=== PATIENT | female | born 1970 | race Caucasian/White ===

== ENCOUNTER 2021-11-09 06:11 | Outpatient (CLI) | payer OTHER, SELFPAY ==
--- OUTSIDE RECORDS SUMMARY | 2021-11-09 06:14 | XMS_ITS | Encounter Summary ---
:1970 Author Organization [facility] Address [address], [place] [address] Care Team Providers Name Role Phone David Choudhury MD Primary Care Provider [phone] Reason for Referral Procedure/Equipment (Routine) - Incomplete Specialty Diagnoses / Procedures Referred By Contact Refer red To Contact Procedures Sha Coulter PA-C XR Chest 1 View [address] [place], [place] [address] Referral ID Status Reason Start Date Expiration Date Visits V isits Requested Authorized [id number] Incomplete 03/20/2021 06/19/2022 1 1 UIT MAKER (Routine) - Incomplete Specialty Diagnoses / Procedures Referred By Contact Refer red To Contact Procedures Tommy Amador MD US Anesthesia Guided Block [address] [place], [place] [address] Referral ID Status Reason Start Date Expiration Date Visits V isits Requested Authorized [id number] Incomplete 03/16/2021 06/15/2022 1 1 UIT MAKER (Routine) - Incomplete Specialty Diagnoses / Procedures Referred By Contact Refer red To Contact Diagnoses Malignant neoplasm of lower lobe of right lung (HRC) Gina Tierney MD Procedures ECG 12 Lead [address], [place] [address] Referral ID Status Reason Start Date Expiration Date Visits V isits Requested Authorized [id number] Incomplete 03/16/2021 06/15/2022 1 1 UIT MAKER Reason for Visit Auth/Cert Specialty Diagnoses / Procedures Referred By Contact Refer red To Contact Diagnoses Malignant neoplasm of lower lobe of right lung (HRC) Procedures THORACOSCOPY/THORACOTOMY/LUNG RESECTION Referral ID Status Reason Start Date Expiration Date Visits Requ ested Visits Authorized [id number] 1 1 Encounter Details Date Type Department Care Team Description 03/16/2021 - Hospital Encounter [facility] Gina Tierney, [place] (Primary Dx); 03/21/2021 Oncology Med Surg Malignant neoplasm of lower lobe of righ t lung (HRC) [address] [employer] [facility] [id number] [phone] Social History Tobacco Use Types Packs/Day Years Used Date Smoking Tobacco: Never Smokeless Tobacco: Never Alcohol Use Standard Drinks/Week Comments Not Currently 0 (1 standard drink = 0.6 oz pure alcoho l) rare usage Alcohol Habits Answer Date Recorded How often do you have a drink containing alcohol? Not asked How many drinks containing alcohol do you have on a typical Not asked day when you are drinking? How often do you have six or more drinks on one occasion? No t asked Comment: rare usage 02/15/2021 Food Insecurity Answer Date Recorded Within the past 12 months, you worried that your food would Never true 03/17/2021 run out before you got money to buy more. Within the past 12 months, the food you bought just didn't N ever true 03/17/2021 last and you didn't have money to get more. Sex Assigned at Date Recorded Female 02/21/2021 8:36 PM BISCUIT MAKER documented as of this encounter Last Filed Vital Signs Vital Sign Reading Time Taken Comments Blood Pressure 107/69 03/21/2021 9:59 AM BISCUIT MAKER Pulse 62 03/21/2021 9:59 AM BISCUIT MAKER Temperature 37 ??C (98.6 ??F) 03/21/2021 9:59 AM BISCUIT MAKER Respiratory Rate 17 03/21/2021 9:59 AM BISCUIT MAKER Oxygen Saturation 96% 03/21/2021 9:59 AM BISCUIT MAKER Inhaled Oxygen Concentration - - Weight 73.9 kg (163 lb) 03/19/2021 6:01 PM BISCUIT MAKER Height 149.9 cm (4' 11) 03/16/2021 8:29 PM BISCUIT MAKER Body Mass Index 32.92 03/16/2021 8:29 PM BISCUIT MAKER documented in this encounter Discharge Summaries Nathaly Gonzalez PA-C - 03/21/2021 2:20 PM CST DISCHARGE SUMMARY Patient ID: Fifi Kasper [id number] 51 y.o. 1970 Admit date: 03/16/2021 Discharge date: 03/21/2021 Admission Diagnoses: Malignant neoplasm of lower lobe of right lung (HRC) [C34.31] Discharge Diagnoses: Principal Problem: Malignant neoplasm of lower lobe of right lung (HRC) Surgeon Dr. Gina Tierney Procedure Procedure(s) (LRB): THORACOSCOPY, RIGHT LOWER LOBE LUNG RESECTION, RIGHT UPPER LOBE WEDGE RESECTION (Right) Procedure Date 03/16/21 History This is a 50-year-old female who recently had donated blood and was getting a pedicure when she had a syncopal event. She was taken for evaluation in the emergency department and a CT scan demonstrateda right lower lobe mass. She was ultimately referred to Pulmonology and a CT-guided biopsy was performed showing adenocarcinoma. She underwent a PET-CT that showed no evidence of metastatic disease. She is completely asymptomatic. Hospital Course Post-op the patient was extubated in the ICU and transferred to the med-surg unit. Her pain was controlled by epidural and PO pain meds. Her chest tubes were removed on POD5 and she was discharged homethat same day. Disposition home Patient Instructions Done while pt is already discharged Discharge Medication List as of 03/21/2021 1:36 PM START taking these medications Details acetaminophen (TYLENOL) 500 MG tablet Take 2 Tablets (1,000 mg) by mouth every 6 hours. Maximum acetaminophen dose is 4000 mg in 24 hours, Disp-100 Tablet, R- 11, Q6H (NON-STND) Starting Fri03/21/2021, Oral, E-Prescribing guaiFENesin 1200 MG Take 1,200 mg by mouth two times a day., Disp-14 Tablet, R- 0, BID Starting Fri03/21/2021, Oral, E-Prescribing ibuprofen (MOTRIN) 400 MG tablet Take 1 Tablet (400 mg) by mouth 4 times a day., Disp-100 Tablet, R-11, QID Starting Fri03/21/2021, Oral, E-Prescribing oxyCODONE (ROXICODONE) 5 MG immediate release tablet Take 1 Tablet (5 mg) by mouth every 6 hours as needed for Pain (Severe Pain (pain score 8-10))., Disp-10 Tablet, R-0, Q6H PRN Starting Fri03/21/2021,Oral, E-Prescribing CONTINUE these medications which have NOT CHANGED Details estradiol (ESTRACE) 1 MG tablet Take 1 mg by mouth daily., DAILY Starting Fri12/08/2020, Oral, Historical FLUoxetine (PROZAC) 10 MG capsule Take 10 mg by mouth daily., DAILY Starting Fri12/26/2020, Oral, Historical hydrocortisone 2.5 % cream Apply 1 Application topically 2 times daily as needed., Disp-30, BID PRN Starting Fri03/31/2006, Topical, FaxPN: hydrOXYzine pamoate (VISTARIL) 25 MG capsule TAKE ONE CAPSULE BY MOUTH EVERY 6 HOURS NEEDED, Historical LORazepam (ATIVAN) 0.5 MG tablet TAKE ONE TABLET BY MOUTH DIRECTED NEEDED, Historical !! metoprolol succinate (TOPROL XL) 100 MG 24 hour release tablet Take 100 mg by mouth daily., DAILYStarting 02/03/2021, Oral, Historical !! metoprolol succinate (TOPROL XL) 50 MG 24 hour release tablet Take 50 mg by mouth daily., DAILY Starting 02/03/2021, Oral, Historical ondansetron (ZOFRAN-ODT) 4 MG disintegrating tablet DISSOLVE ONE TABLET BY MOUTH EVERY 6 HOURS NEEDED, Historical SUMAtriptan (IMITREX) 50 MG tablet Take 100 mg by mouth once as needed (Take 1 tablet by mouth once as needed.)., Disp-18, R-3, ONCE PRN Starting 05/30/2003, Oral, HistoricalPN: topiramate (TOPAMAX) 100 MG tablet Take 1 tablet by mouth 2 times daily. LW Addl Instr:Indicated for: Headache, Disp-60, R-5, BID Starting Fri04/18/2006, Oral, FaxPN: LW called/fax pharm:[facility] Fax #:[phone] !! - Potential duplicate medications found. Please discuss with provider. Shower daily, washing incisions with soap and water. Remove all dressings prior to showering. Apply dry dressing to wounds as needed until the wounds are dry. Report any signs or symptoms or infection to your doctor. Do not apply powders or lotions to incisions. Remove steri-strips from incisions by post-operative day seven. No driving until you are cleared at your first post-discharge follow up appointment. No lifting greater than 10-15 pounds for eight weeks. Elevate legs while sitting. Reviewed importance of smoking cessation. Advised not to smoke. Your follow-up appointment will be scheduled for you. Please arrive one hour before scheduled time to do any labs and X-rays required. You have been set up with outpatient cardiac rehab. They will arrange your first appointment with them. UIT MAKER documented in this encounter Discharge Instructions Discharge Instr - Other KayleighRuNathaly angeles PA-C - 03/21/2021 12:[address] Surgery Discharge Instructions Please shower and gently wash incisions daily. Change dressings over chest tube sites daily until dry, then leave open to air. No driving until seen by surgeon in follow-up. No heavy lifting or strenuous activity. Watch for signs of infection: redness, fever, warmth to incision, odor from incision-call surgeon's office with any of these symptoms. UIT MAKER documented in this encounter Medications at Time of Discharge Medication Sig Dispensed Refills Start Date End Date acetaminophen (TYLENOL) TAKE 2 TABLETS (1,000 100 Tablet 11 0 03/21/2021 03/21/2022 500 MG tablet MG) BY MOUTH EVERY 6 HOURS. MAXIMUM ACETAMINOPHEN DOSE IS 4000 MG IN 24 HOURS estradiol (ESTRACE) 1 Take 1 mg by mouth 0 2020 MG tablet daily. FLUoxetine (PROZAC) 10 Take 10 mg by mouth 0 10/2020 MG capsule daily. guaiFENesin (MUCINEX) TAKE 2 TABLETS (1,200 28 Tablet 0 03/202103/21/2022 600 MG 12 hour release MG) BY MOUTH TWO tablet TIMES A DAY. guaiFENesin 1200 MG Take 1,200 mg by 14 Tablet 0 03/21/2021 mouth two times a day. hydrocortisone 2.5 % Apply 1 Application 30 0 2006 cream topically 2 times daily as needed. hydrOXYzine pamoate TAKE ONE CAPSULE BY 0 021 (VISTARIL) 25 MG MOUTH EVERY 6 HOURS capsule NEEDED ibuprofen (MOTRIN) 400 TAKE 1 TABLET (400 100 Tablet 11 03/2103/21/2022 MG tablet MG) BY MOUTH 4 TIMES A DAY. LORazepam (ATIVAN) 0.5 TAKE ONE TABLET BY 0 02/05 MG tablet MOUTH DIRECTED NEEDED metoprolol succinate Take 50 mg by mouth 0 2020 (TOPROL XL) 100 MG 24 daily. Patient is now hour release tablet taking 50 mg once per day metoprolol succinate Take 50 mg by mouth 0 2020 (TOPROL XL) 50 MG 24 daily. hour release tablet ondansetron DISSOLVE ONE TABLET 0 11/10/2020 (ZOFRAN-ODT) 4 MG BY MOUTH EVERY 6 disintegrating tablet HOURS NEEDED oxyCODONE (ROXICODONE) TAKE 1 TABLET (5 MG) 10 Tablet 0 03/202103/21/2022 5 MG immediate release BY MOUTH EVERY 6 tablet HOURS NEEDED FOR SEVERE PAIN (PAIN SCORE 8-10) SUMAtriptan (IMITREX) Take 100 mg by mouth 18 3 05/18 50 MG tablet once as needed (Take 1 tablet by mouth once as needed.). topiramate (TOPAMAX) Take 1 tablet by 60 5 7 100 MG tablet mouth 2 times daily. LW Addl Instr:Indicated for: Headache documented as of this encounter Progress Notes Montserrat Chavez, RN - 03/21/2021 1:51 PM CST DISCHARGE O: Patient safely discharged to home. D: Patient is alert and oriented x 4. Pt up independently . Discharge criteria met. Vaccines addressed prior to discharge. A: Discharge instructions and medications reviewed and given to patient. Written medication education material provided on oxycodone including possible side effects. Prescriptions filled by [facility] pharmacy. Belongings checklist reviewed with patient and belongings sent. Care plan issues addressed and education record updated. R: Patient verbalizes understanding and teaches back discharge instructions. Patient discharged by: wheelchair with family. UIT MAKER Nathaly Gonzalez PA-C - 03/21/2021 12:33 PM CST DAILY PROGRESS NOTE CT Surgery POD #5 03/21/2021 12:34 PM PROCEDURE: Procedure(s) (LRB): THORACOSCOPY, RIGHT LOWER LOBE LUNG RESECTION, RIGHT UPPER LOBE WEDGE RESECTION (Right) SUBJECTIVE: Patient feels much better this morning. The patient describes pain as controlled Breathing no shortness of breath Appetite: fair Bowel movement: Yes Flatus: Yes Activities: up to chair this am, encourage ambulation 4 walks/day OBJECTIVE: Vitals: Vital Signs Temp: 98.6 ??F (37 ??C), Pulse: 62, Resp: 17, SpO2: 96 %, BP: 107/69, O2 Device: room air I/O last 3 completed shifts: In: 1500 [Oral:1360; IV:140] Out: 1740 [Urine:1470; Chest Tube:270] UOP: 100/8h HEALTH TECHNICAL WRITER: 270/24 Air Leak: No Current Weight: 163 lb (95307 g) Admission Weight: 161 PHYSICAL EXAM: Heart: reg rate and rhythm Lungs: clear upper farias, bilateral lower farias coarse ABD: nt, soft Ext: warm and well perfused Incisions: dressings changed, incisions CDI Labs: Lab Results Component Value Date WBC 4.8 03/16/2021 WBC 4.5 02/22/2021 Lab Results Component Value Date Hemoglobin 12.3 03/16/2021 Hemoglobin 12.1 03/16/2021 Lab Results Component Value Date Platelets 179 03/16/2021 Platelets 186 02/22/2021 Lab Results Component Value Date INR 1.0 03/16/2021 INR 1.0 02/22/2021 Lab Results Component Value Date Creatinine 0.94 03/16/2021 Creatinine Serum 1.0 01/04/2005 Lab Results Component Value Date BUN 14 03/16/2021 Blood Urea Nitrogen 9 01/04/2005 No results found for: POTASSIUM Lab Results Component Value Date Glucose Whole Blood 90 03/16/2021 Glucose Whole Blood 82 02/28/2021 ASSESSMENT/PLAN: Active problems: Patient Active Hospital Problem List: Malignant neoplasm of lower lobe of right lung (HRC) (03/09/2021) Assessment: s/p right lower lobectomy Plan: progressing CTs removed intact. Sutures tied in place and dressings applied. Epidural removed. DC IV pain meds. PO pain meds only Encouraging walking (4 walks per day) and IS use DC this afternoon as long as pain is treated appropriately UIT MAKER Kj Nagy MD - 03/21/2021 6:28 AM CST Anesthesiology Acute Pain Progress Note POD# 5 Epidural for pain SUBJECTIVE: Pain at rest 0/10, dynamic pain 1/10 Nausea no Pruritis no OBJECTIVE: Catheter site: old heme ASSESSMENT/PLAN: Continue current therapy yes Likely d/c today by CV surgery Kj Nagy MD 6:29 AM, 03/21/2021 UIT MAKER JAYDEN BOLES - 03/21/2021 6:13 AM CST Shift Update: - In addition to epidural infusion, pain was managed with PRN Toradol x1 and scheduled Tylenol this shift. Patient states pain is manageable at this time. Anticipated D/C of epidural today, per MD. - Patient c/o itchiness throughout shift, managed with PRN Vistaril x2, in addition to PRN hydrocortisone cream. Patient stated Vistaril was more effective than Benadryl in relieving the itching. - Chest tube output 20 mL this shift. - Ambulating with staff and up to chair intermittently. Vitals: 03/21/21 0543 BP: 108/60 Pulse: 62 Resp: 17 Temp: 36.9 ??C (98.5 ??F) UIT MAKER Emani Joe RN - 03/20/2021 6:13 PM CST Shift [id number] Epidural still running at 10mL/h. Pain well managed. R CT y-site, provider changed dressig in AM. Total CT output 130mL. CXR in afternoon, is on oral lasix. Ambulating in halls with RN, up in chair often. On RA, continuous pulse ox, working on IS. Overall pleasant & can make needs known. UIT MAKER Sha Coulter PA-C - 03/20/2021 11:38 AM CST DAILY PROGRESS NOTE CT Surgery POD #4 03/20/2021 11:39 AM PROCEDURE: Procedure(s) (LRB): THORACOSCOPY, RIGHT LOWER LOBE LUNG RESECTION, RIGHT UPPER LOBE WEDGE RESECTION (Right) SUBJECTIVE: Patient feels okay this morning. Sitting in bedside chair. The patient describes pain as controlled Breathing no shortness of breath Appetite: fair Bowel movement: Yes Flatus: Yes Activities: up to chair this am, encourage ambulation 4 walks/day OBJECTIVE: Vitals: Vital Signs Temp: 98.8 ??F (37.1 ??C), Pulse: 64, Resp: 18, SpO2: 94 %, BP: 138/85, O2 Device: room air I/O last 3 completed shifts: In: 1919 [Oral:1919] Out: 2474 [Urine:5; Chest Tube:250] UOP: 600/8h HEALTH TECHNICAL WRITER: 170 since 2299 on 03/19/21 Air Leak: No Current Weight: 163 lb (01255 g) Admission Weight: 161 PHYSICAL EXAM: Heart: reg rate and rhythm Lungs: clear upper farias, bilateral lower farias coarse ABD: nt, soft Ext: warm and well perfused Incisions: some leaking around posterior chest tube, dressings changed Imaging: cxr ordered Labs: Lab Results Component Value Date WBC 4.8 03/16/2021 WBC 4.5 02/22/2021 Lab Results Component Value Date Hemoglobin 12.3 03/16/2021 Hemoglobin 12.1 03/16/2021 Lab Results Component Value Date Platelets 179 03/16/2021 Platelets 186 02/22/2021 Lab Results Component Value Date INR 1.0 03/16/2021 INR 1.0 02/22/2021 Lab Results Component Value Date Creatinine 0.94 03/16/2021 Creatinine Serum 1.0 01/04/2005 Lab Results Component Value Date BUN 14 03/16/2021 Blood Urea Nitrogen 9 01/04/2005 No results found for: POTASSIUM Lab Results Component Value Date Glucose Whole Blood 90 03/16/2021 Glucose Whole Blood 82 02/28/2021 ASSESSMENT/PLAN: Active problems: Patient Active Hospital Problem List: Malignant neoplasm of lower lobe of right lung (HRC) (03/09/2021) Assessment: s/p right lower lobectomy Plan: progressing CXR ordered Keep CTs another day d/t output. No air leak seen today Keep epidural Continue to offer toradol for shoulder pain Continue BID lasix Encouraging walking (4 walks per day) and IS use UIT MAKER Dennis Owusu MD - 03/20/2021 8:40 AM CST Anesthesiology Acute Pain Progress Note 03/20/2021, 8:40 AM Fifi Ksaper [id number] 1970 Iinfusion rate: 10 ml/hr SUBJECTIVE: Pain level 2/10 Nausea no, Pruritis yes- treated with Nubain. OBJECTIVE: BP 138/85 Pulse 64 Temp 37.1 ??C (98.8 ??F) (Oral) Resp 18 Ht 4' 11 Wt 73.9 kg (163 lb) SpO2 94% BMI 32.92 kg/m?? Catheter site: clean, dry, intact dressing Lab Results Component Value Date INR 1.0 03/16/2021 ASSESSMENT/PLAN: Continue current therapy yes Discontinue tomorrow: possible, depending on chest tubes. UIT MAKER Emani Joe RN - 03/19/2021 6:45 PM CST Shift [id number] Epidural still running at 10mL/h. R CT y-sited & air leak present-- not new occurrence. Total output 200mL. Provided torodol x1 for shoulder/CT site pain w/ relief. C/o generalized itching, provided benadryl x1 with improvement. Is ambulating in halls with RN, up in chair often. On RA, continuous pulse ox. Overall pleasant & can make needs known. UIT MAKER Abdoulaye Silvestre APRN, INFANTRY INDIRECT FIRE CREWMEMBER - 03/19/2021 10:07 AM CST DAILY PROGRESS NOTE CT Surgery POD #3 03/19/2021 10:07 AM PROCEDURE: Procedure(s) (LRB): THORACOSCOPY, RIGHT LOWER LOBE LUNG RESECTION, RIGHT UPPER LOBE WEDGE RESECTION (Right) SUBJECTIVE: Patient feels good. Up in chair. The patient describes pain as controlled Breathing no shortness of breath Appetite: fair Bowel movement: Yes Flatus: Yes Activities: up to chair this am, encourage 4 walks/day OBJECTIVE: Vitals: Vital Signs Temp: 98.6 ??F (37 ??C), Pulse: 87, Resp: 16, SpO2: 98 %, BP: 125/74, O2 Device: room air I/O last 3 completed shifts: In: 1320 [Oral:1320] Out: 5 [Urine:2024; Chest Tube:330] UOP: 1050/8h HEALTH TECHNICAL WRITER: 170/8h Air Leak: No Current Weight: 161 lb (50683 g) Admission Weight: 161 PHYSICAL EXAM: Heart: reg Lungs: clear ABD: nt, soft Ext: warm and well perfused Incisions: dressings changed. CDI Imaging: FINDINGS: One view was obtained. There is an endotracheal tube in place the tip in the left mainstembronchus. There are two right-sided chest tubes in place. New moderate left pleural effusion. New mild left lower lobe atelectasis versus infiltrate. No pneumothorax. Labs: Lab Results Component Value Date WBC 4.8 03/16/2021 WBC 4.5 02/22/2021 Lab Results Component Value Date Hemoglobin 12.3 03/16/2021 Hemoglobin 12.1 03/16/2021 Lab Results Component Value Date Platelets 179 03/16/2021 Platelets 186 02/22/2021 Lab Results Component Value Date INR 1.0 03/16/2021 INR 1.0 02/22/2021 Lab Results Component Value Date Creatinine 0.94 03/16/2021 Creatinine Serum 1.0 01/04/2005 Lab Results Component Value Date BUN 14 03/16/2021 Blood Urea Nitrogen 9 01/04/2005 No results found for: POTASSIUM Lab Results Component Value Date Glucose Whole Blood 90 03/16/2021 Glucose Whole Blood 82 02/28/2021 ASSESSMENT/PLAN: Active problems: Patient Active Hospital Problem List: Malignant neoplasm of lower lobe of right lung (HRC) (03/09/2021) Assessment: s/p right lower lobectomy Plan: progressing Keep CTs another day d/t output. No air leak seen today Keep epidural Continue to offer toradol for shoulder pain Continue lasix Encouraging walking (4 walks per day) and IS use UIT MAKER Tommy Amador MD - 03/19/2021 7:14 AM CST Anesthesiology Acute Pain Progress Note 03/19/2021, 7:14 AM Fifi Ranjith [id number] 1970 Surgical Procedure: R Thoracoscopy/RLL Resection Post-op day # 3 Epidural catheter: thoracic Iinfusion rate>10 Medication: Bup/Fent SUBJECTIVE: Pain at rest 0/10, dynamic pain 3/10 Nausea no, Vomiting no, Pruritis yes OBJECTIVE: BP 120/68 Pulse 70 Temp 37 ??C (98.6 ??F) (Oral) Resp 16 Ht 4' 11 Wt 73 kg (161 lb) SpO2 98% BMI 32.52 kg/m?? Catheter site: clean, dry, intact dressing and old heme Lab Results Component Value Date INR 1.0 03/16/2021 Platelets 179 03/16/2021 ASSESSMENT/PLAN: Analgesia satisfactory to patient: yes Continue current therapy yes - Nubain for itching working well Discontinue once chest tubes are removed UIT MAKER Nathaly Gonzalez PA-C - 03/18/2021 9:45 AM CST DAILY PROGRESS NOTE CT Surgery POD #2 03/18/2021 9:46 AM PROCEDURE: Procedure(s) (LRB): THORACOSCOPY, RIGHT LOWER LOBE LUNG RESECTION, RIGHT UPPER LOBE WEDGE RESECTION (Right) SUBJECTIVE: Patient feels tired this morning. Epidural is treating CT pain well. The patient describes pain as controlled Breathing no shortness of breath Appetite: fair Bowel movement: No Flatus: Yes Activities: up to chair this am, encourage 4 walks/day OBJECTIVE: Vitals: Vital Signs Temp: 98.9 ??F (37.2 ??C), Pulse: 71, Resp: 16, SpO2: 95 %, BP: 108/57, O2 Device: room air I/O last 3 completed shifts: In: 1924 [Oral:1320; IV:604] Out: 2720 [Urine:2300; Chest Tube:420] UOP: 350/8h HEALTH TECHNICAL WRITER: 130/8h Air Leak: Yes Current Weight: 161 lb (09960 g) Admission Weight: 161 PHYSICAL EXAM: Heart: reg Lungs: clear ABD: nt, soft Ext: warm and well perfused Incisions: dressings changed. CDI Imaging: FINDINGS: One view was obtained. There is an endotracheal tube in place the tip in the left mainstembronchus. There are two right-sided chest tubes in place. New moderate left pleural effusion. New mild left lower lobe atelectasis versus infiltrate. No pneumothorax. Labs: Lab Results Component Value Date WBC 4.8 03/16/2021 WBC 4.5 02/22/2021 Lab Results Component Value Date Hemoglobin 12.3 03/16/2021 Hemoglobin 12.1 03/16/2021 Lab Results Component Value Date Platelets 179 03/16/2021 Platelets 186 02/22/2021 Lab Results Component Value Date INR 1.0 03/16/2021 INR 1.0 02/22/2021 Lab Results Component Value Date Creatinine 0.94 03/16/2021 Creatinine Serum 1.0 01/04/2005 Lab Results Component Value Date BUN 14 03/16/2021 Blood Urea Nitrogen 9 01/04/2005 No results found for: POTASSIUM Lab Results Component Value Date Glucose Whole Blood 90 03/16/2021 Glucose Whole Blood 82 02/28/2021 ASSESSMENT/PLAN: Active problems: Patient Active Hospital Problem List: Malignant neoplasm of lower lobe of right lung (HRC) (03/09/2021) Assessment: s/p right lower lobectomy Plan: progressing Keep CTs another day d/t air leak and output Keep epidural another day Continue to offer toradol for shoulder pain New L pleural effusion. Lasix added Encouraging walking (4 walks per day) and IS use Yandy Roberto MD - 03/18/2021 7:32 AM CST Anesthesiology Acute Pain Progress Note 03/18/2021 Fifi Kasper [id number] 1970 Patient is post-op day # 2 s/p thoracotomy. Pain is controlled. Ambulating without issues. Endorses pruritus, nubain is helping. CT remains in place. Epidural catheter: thoracic Iinfusion rate 10 ml/hr SUBJECTIVE: Pain at rest 3/10, dynamic pain 6/10 Nausea no, Vomiting no, Pruritis yes OBJECTIVE: BP 101/40 Pulse 67 Temp 36.8 ??C (98.3 ??F) (Oral) Resp 18 Ht 4' 11 Wt 73 kg (161 lb) SpO2 95% BMI 32.52 kg/m?? Catheter site: old heme Lab Results Component Value Date INR 1.0 03/16/2021 ASSESSMENT/PLAN: Analgesia satisfactory to patient: yes Continue current therapy yes Continue epidural at current rate. We will continue to follow and plan for transition from epidural to PO pain medications once CT is out and we are closer to discharge. Please contact us with any questions or concerns. Yandy Clarke MD 7:32 AM Marilu Jalloh RN - 03/18/2021 5:55 AM CST Shift Update: -Patient reports pain is controlled. Pain is worse w/ deep breathing and coughing. -Nubain x1 for itching. -Ambulated to the bathroom and in room without issue. -Had a BM. -Tolerating regular diet. -Keenan removed at 0540. Vitals: 03/18/21 0507 BP: 101/40 Pulse: 67 Resp: 18 Temp: UIT MAKER Nathaly Gonzalez PA-C - 03/17/2021 10:23 AM CST DAILY PROGRESS NOTE CT Surgery POD #1 03/17/2021 10:23 AM PROCEDURE: Procedure(s) (LRB): THORACOSCOPY, RIGHT LOWER LOBE LUNG RESECTION, RIGHT UPPER LOBE WEDGE RESECTION (Right) SUBJECTIVE: Patient feels ok this morning. C/o shoulder pain. Epidural is treating CT pain well. The patient describes pain as controlled Breathing no shortness of breath Appetite: fair Bowel movement: No Flatus: Yes Activities: up to chair this am, encourage 4 walks/day OBJECTIVE: Vitals: Vital Signs Temp: 98.6 ??F (37 ??C), Pulse: 80, Resp: 16, SpO2: 98 %, BP: 111/69, O2 Device: room air I/O last 3 completed shifts: In: 1981 [Oral:100; IV:1881] Out: 1371 [Urine:1050; Chest Tube:121] UOP: 800/8h HEALTH TECHNICAL WRITER: 80/8h Air Leak: Yes Current Weight: 161 lb (96221 g) Admission Weight: 161 PHYSICAL EXAM: Heart: reg Lungs: clear ABD: nt, soft Ext: warm and well perfused Incisions: dressings changed. CDI Imaging: XR Portable Chest 1 View COMPARISON: 02/22/2021. FINDINGS: One view was obtained. There is an endotracheal tube in place the tip in the left mainstembronchus. There are two right-sided chest tubes in place. New moderate left pleural effusion. New mild left lower lobe atelectasis versus infiltrate. No pneumothorax. US Anesthesia Guided Block If an Anesthesia block was performed please see the Anesthesia encounter for documentation. This procedure was performed and interpreted by the performing provider. Labs: Lab Results Component Value Date WBC 4.8 03/16/2021 WBC 4.5 02/22/2021 Lab Results Component Value Date Hemoglobin 12.3 03/16/2021 Hemoglobin 12.1 03/16/2021 Lab Results Component Value Date Platelets 179 03/16/2021 Platelets 186 02/22/2021 Lab Results Component Value Date INR 1.0 03/16/2021 INR 1.0 02/22/2021 Lab Results Component Value Date Creatinine 0.94 03/16/2021 Creatinine Serum 1.0 01/04/2005 Lab Results Component Value Date BUN 14 03/16/2021 Blood Urea Nitrogen 9 01/04/2005 No results found for: POTASSIUM Lab Results Component Value Date Glucose Whole Blood 90 03/16/2021 Glucose Whole Blood 82 02/28/2021 ASSESSMENT/PLAN: Active problems: Patient Active Hospital Problem List: 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? Catheter site: old heme Lab Results Component Value Date/Time INR 1.0 03/16/2021 09:52 AM ASSESSMENT/PLAN: Continue current therapy yes Discontinue tomorrow no Pain poorly controlled overnight Gave clinician bolus 5cc from epidural pump Increased rate from 8 --> 10 ml/hr Continue epidural at least until chest tube removed. Gina Bravo MD 8:00 AM, 03/17/2021 Marilu Jalloh RN - 03/17/2021 6:04 AM CST Shift Update: -Patient reports mild itching; nubaine given x1 this shift with relief. -Chest tube with 80ml of bloody output. No air leak noted. -Pain is controlled w/ epidural. Did c/o mild headache, scheduled Tylenol was given with relief. -Tolerating clear liquids. Plan to advance diet further this AM. No nausea. -Stood and marched in place this morning. No dizziness or lightheadedness. -Incentive spirometer teaching done and at the bedside. -This AM, patient reported some burning at the catheter insertion site. Sticky left for MD to address. Vitals: 03/17/21 0551 BP: 112/64 Pulse: 77 Resp: 16 Temp: 36.9 ??C (98.4 ??F) UIT MAKER Adela Parker RN - 03/16/2021 8:45 PM CST ADMIT O: Admitted patient via cart from Post-Anesthesia Recovery to bed # [id number]. D: Patient is alert and oriented x 4 See Admission Assessments. A: Discussed plan of care. See education record for admission education. Oriented to room. Call light in reach. Bed alarm: on R: Patient status: VSS, pain controlled. Will monitor. UIT MAKER documented in this encounter Procedure Notes Gina Tierney MD - 03/16/2021 5:56 PM CST [facility] Brief Operative Progress Note Surgery Date: 03/16/2021 Surgeon(s) and Role: * Gina Tierney MD - Primary * Nathaly Gonzalez PA-C - Assisting Pre-op Diagnosis: * Malignant neoplasm of lower lobe of right lung (HRC) [C34.31] Post-op Diagnosis: * Malignant neoplasm of lower lobe of right lung (HRC) [C34.31] Procedure(s) (LRB): THORACOSCOPY, RIGHT LOWER LOBE LUNG RESECTION, RIGHT UPPER LOBE WEDGE RESECTION (Right) EBL: 200 Specimens: ID Type Source Tests Collected by Time Destination 1 : STATION 9 Tissue Lymph node SURGICAL PATHOLOGY Gina Tierney MD 03/16/2021 1448 2 : STATION 7 Tissue Lymph node SURGICAL PATHOLOGY Gina Tierney MD 03/16/2021 1501 3 : STATION 2R AND 4R Tissue Lymph node SURGICAL PATHOLOGY Gina Tierney MD 03/16/2021 1551 4 : STATION 10 Tissue Lymph node SURGICAL PATHOLOGY Gnia Tierney MD 03/16/2021 1616 5 : RIGHT LOWER LOBE PLEASE FEEZE PARANCHEAL AREA BY STITCH Tissue Lung, right lower lobe SURGICAL PATHOLOGY Gina Tierney MD 03/16/2021 1629 6 : right upper lobe stitch is previous staple margin Tissue Lung, right upper lobe SURGICAL PATHOLOGY Gina Tierney MD 03/16/2021 1722 Complications / Findings: As expected UIT MAKER Gina Tierney MD - 03/16/2021 12:00 AM CST NAME: FIFI KASPER CSN: [id number] OPERATIVE REPORT DATE OF SURGERY: 03/16/2021 : 1970 SURGEON: GINA TIERNEY MD PREOPERATIVE DIAGNOSIS: Adenocarcinoma of the right lower lobe. POSTOPERATIVE DIAGNOSIS: Adenocarcinoma of the right lower lobe. PROCEDURE: Right lower lobectomy with a minimally invasive video-assisted thoracoscopic technique. BRUSH OPERATOR: Nathaly Gonzalez PA-C. SPECIMEN: Station 9, 2, 4, 10 lymph nodes station and right lower lobe and upper lobe wedge resection. ANESTHESIA: General with double-lumen tube. COMPLICATIONS: None. FINDINGS: Tumor appeared to be contained within the right lower lobe and was approximately 1 cm fromthe upper lobe margin. This, however, was positive for malignancy and a new upper lobe margin was created by creating a wedge resection from the staple line. This was negative for malignancy on frozen section. The 9, 7, 2 and 4R lymph nodes were negative for malignancy on frozen section. INDICATIONS: This is a 50-year-old female with a biopsy-proven adenocarcinoma of the right lower lobe. She had clinical stage I disease. Surgical resection was indicated. She was counseled on the risks, benefits, and alternatives. Informed consent was obtained. DESCRIPTION OF PROCEDURE: Patient was identified in preoperative holding and taken to the operating room where she was given a general anesthetic with a double-lumen tube. She was positioned on the right side up, left side down, lateral decubitus position on a well-padded operating table and secured with pads strapped and taped. She was prepped and draped sterilely. Time-outs were performed. The video thoracoscope was inserted in the 6th intercostal space in the anterior axillary line and a 2nd portwas created in the 8th intercostal space in the line of the scapular tip and a working port was created in the 4th intercostal space. The inferior pulmonary ligament was divided and the station 9 lymphnodes were sent for frozen section. These were negative for malignancy. The inferior pulmonary vein was encircled with a vascular clamp and dissected free of investing tissue. The major fissure was then divided using Harmonic Scalpel and the lower lobe pulmonary artery was identified and dissected free of investing tissue. The pulmonary artery was then divided using sequential firings of Endo TAURUS 35 mm vascular load stapler. The subcarinal lymph nodes were then biopsied and sent for frozen section. These were negative for malignancy. Station 2 and 4R lymph nodes were biopsied and sent for frozen section. These were negative for malignancy. A single station 10R lymph node was sent in isolation for permanent section. The pulmonary vein was then divided using a single firing Endo TAURUS 35 mm vascular load stapler. The major fissure was completed using sequential firings of the Endo TAURUS 45 mm gold load stapler. The bronchus was then dissected free of investing tissue and clamped with a green load Endo TAURUS 45 mm stapler and the upper and middle lobes were ventilated and it was clear that there was noimpingement of air flow into the upper and middle lobes. The lower lobe bronchus was divided and then tested for air leak by instilling normal saline into the chest cavity and inflating the upper and mi ddle lobes. There was no evidence of bronchial stump leak. The specimen was removed from the chest using an EndoCatch bag and sent for frozen section in the parenchymal margin, though the tumor was at least 1 cm away from the margin. The margin was positive on frozen section and we then re-resected the margin by creating a wedge from the upper lobe at the previous staple line using sequential firingsof a gold load Endo TAURUS 45 mm stapler. This was sent for frozen section and negative for malignancy.Final checks for hemostasis were performed. The chest was irrigated with saline and two 24-Congolese chest tubes were placed and secured with #2 nylon sutures. The myofascial layers were closed with 2-0 Vicryl and deep dermal tissue was closed with 3-0 Vicryl. The skin was closed with 4-0 Monocryl. All sponge, needle, instrument counts were correct at the conclusion of the operation. IGina, was present and scrubbed for the entire procedure. GINA TIERNEY MD TAS/AQS /[id number] UIT MAKER documented in this encounter Plan of Treatment Not on filedocumented as of this encounter Procedures Procedure Name Priority Date/Time Associated Diagnosis Comme nts XR CHEST 1 VIEW Routine 03/20/2021 4:41 PM Result s for this BISCUIT MAKER procedure are i n the results section. HEMOGLOBIN, BLOOD STAT 03/16/2021 6:37 PM Resu lts for this BISCUIT MAKER procedure are i n the results section. POTASSIUM STAT 03/16/2021 6:37 PM Results f or this BISCUIT MAKER procedure are i n the results section. SURGICAL PATHOLOGY Routine 03/16/2021 2:48 PM Malignant neopla sm Results for this BISCUIT MAKER of lower lobe of procedure a re in right lung (HRC) the results section. THORACOSCOPY/THORAC 03/16/2021 1:19 PM Malignant neopl asm OTOMY/LUNG BISCUIT MAKER of lower lobe of RESECTION right lung (HRC) Case Notes XRAY TAKEN AT END OF CASE BT SECOND DRAW STAT 03/16/2021 10:21 Results f or this AM BISCUIT MAKER procedure are i n the results section. GLUCOSE, WHOLE BLOOD Routine 03/16/2021 10:17 Res ults for this POCT AM BISCUIT MAKER procedure are i n the results section. ECG 12 LEAD INPATIENT Specified Time 03/16/2021 10:08 Malignant Results for this AM BISCUIT MAKER neoplasm of procedure are i n lower lobe of the results right lung (HRC) section. US ANESTHESIA GUIDED STAT 03/16/2021 10:06 Res ults for this BLOCK AM BISCUIT MAKER procedure are i n the results section. TYPE AND SCREEN Routine 03/16/2021 9:52 Malignant Results f or this AM BISCUIT MAKER neoplasm of procedure are i n lower lobe of the results right lung (HRC) section. CBC AND DIFFERENTIAL STAT 03/16/2021 9:52 Malignant Resu lts for this PANEL AM BISCUIT MAKER neoplasm of procedure are i n lower lobe of the results right lung (HRC) section. ANTIBODY SCREEN Routine 03/16/2021 9:52 Malignant Results f or this AM BISCUIT MAKER neoplasm of procedure are i n lower lobe of the results right lung (HRC) section. BLOOD TYPE Routine 03/16/2021 9:52 Malignant Results for this AM BISCUIT MAKER neoplasm of procedure are i n lower lobe of the results right lung (HRC) section. COMPLETE BLOOD STAT 03/16/2021 9:52 Malignant Results fo r this COUNT-W/DIFF AM BISCUIT MAKER neoplasm of procedure are i n lower lobe of the results right lung (HRC) section. BASIC METABOLIC PANEL STAT 03/16/2021 9:52 Malignant Res ults for this AM BISCUIT MAKER neoplasm of procedure are i n lower lobe of the results right lung (HRC) section. APTT (ACTIVATED STAT 03/16/2021 9:52 Malignant Results f or this PARTIAL AM BISCUIT MAKER neoplasm of procedure are i n THROMBOPLASTIN TIME lower lobe of the res ults right lung (HRC) section. INR/PROTIME STAT 03/16/2021 9:52 Malignant Results for this AM BISCUIT MAKER neoplasm of procedure are i n lower lobe of the results right lung (HRC) section. POCT URINE STAT 03/16/2021 9:40 Resu lts for this AM BISCUIT MAKER procedure are i n the results section. documented in this encounter Results XR Chest 1 View (03/20/2021 4:41 PM BISCUIT MAKER) Anatomical Region Laterality Modality Chest, Lung Digital Radiography Specimen (Source) Anatomical Collection Method Collection Time Re ceived Time Location / / Volume Laterality 03/20/2021 4:36 PM BISCUIT MAKER Impressions 03/20/2021 4:47 PM BISCUIT MAKER COMPARISON: ??03/16/2021 FINDINGS: Patient rotated. Prior ET tube has been removed. There are 2 presumed right-sided chest tubes. The more medial presumed chest tube has been retracted with distal tip now overlying the medial m id thorax, previously in the right apex (less likely this reflects a new mediastinal drain.) New right apical pneumothorax. Progressive right basilar atelectasis. Left lung clear. Procedure Note Armen Morillo W, DO - 03/20/2021For matting of this note might be different from the original. IMPRESSION COMPARISON: 03/16/2021 FINDINGS: Patient rotated. Prior ET tube has been removed. There are 2 presumed right-sided chest tubes. The more medial presumed chest tube has been retracted with distal tip now overlying the medial mid thorax, previously in the right apex (less likel y this reflects a new mediastinal drain.) New right apical pneumothorax. Progressive right basilar atelectasis. Left lung clear. Sha Coulter PA-C RAD GD POTASSIUM (03/16/2021 6:37 PM BISCUIT MAKER) athologist Signature Potassium 3.7 3.5 - 5.1 03/16/2021 [facility] mmol/L 7:03 PM BISCUIT MAKER LABORATORY Specimen Anatomical Collection Method / Collection Time Recei leoncio Time (Source) Location / Volume Laterality Blood Venipuncture / 03/16/2021 6:37 03/16/2021 6:50 Unknown PM BISCUIT MAKER PM BISCUIT MAKER Gina Tierney MD LAB_1 Performing Organization Address City/[facility]/ZIP [facility] Phon e Number [facility] LABORATORY [address] [place] [address] HEMOGLOBIN, BLOOD (03/16/2021 6:37 PM BISCUIT MAKER) athologist Signature Hemoglobin 12.3 12.0 - 15.5 03/16/2021 [facility] g/dL 6:53 PM BISCUIT MAKER LABORATORY Specimen Anatomical Collection Method / Collection Time Recei leoncio Time (Source) Location / Volume Laterality Blood Venipuncture / 03/16/2021 6:37 03/16/2021 6:50 Unknown PM BISCUIT MAKER PM BISCUIT MAKER Gina Tierney MD LAB_1 Performing Organization Address City/[facility] Phon e Number [facility] [address] [place] [address] Surgical Path (03/16/2021 2:48 PM BISCUIT MAKER) Component Value Ref Test Analysis Performed At Patholo gist Range Method Time Signature Case Report Surgical Pathology ?Case: [id number] ? 03/21/2021 [facility] Authorizing Provider: ??Gina Estrada MD ?Collected: ? 03/16/2021 1448 ? 3:24 PM LABO RATORY Ordering Location: ? [facility] ?? Received: ?03/16/2021 5449 ? BISCUIT MAKER Pathologist: ? Augie Escalera, ? Specimens: ?? A) - Lymph nod e, STATION 9 ? B) - Lymp h node, STATION 7 ? C) - Lymp h node, STATION 2R AND 4R ? D) - Lymp h node, STATION 10 ? E) - Lung , right lower lobe, RIGHT LOWER LOBE PLEASE FEEZE PARANCHEAL AREA BY STITCH ? F) - Lung , right upper lobe, right upper lobe stitch is previous staple margin ? FINAL DIAGNOSIS A. Lymph node, STATION 9, biopsy: 03/21/2021 [facility] Electronically Please see synoptic report for details 3 :24 PM LABORATORY signed by BISCUIT MAKER Augie Escalera B. Lymph node, STATION 7, biopsy: MD Leonides on Please see synoptic report for details 03/21/2021 at 3:24 PM C. Lymph node, STATION 2R AND 4R, biopsy: Please see synoptic report for details D. Lymph node, STATION 10, biopsy: Please see synoptic report for details E. Lung, right lower lobe, resection: Please see synoptic report for details F. Lung, right upper lobe, stitch is previous staple margin, resection: Please see synoptic report for details Synoptic Report LUNG 03/21/2021 [facility] LUNG: RESECTION - All Specimens 3:24 PM LABORATORY 8th Edition - Protocol posted: 06/16/2019 BISCUIT MAKER SPECIMEN ?? Procedure: ?Wedge resection ?? Specimen Laterality: ?Right TUMOR ?? Tumor Site: ?Lower lobe of lung ?? Histologic Type: ?Invasive adenocarcinoma, acinar pr edominant ?? Histologic Grade: ?G2: Moderately differentiated ? Total Tumor Size (siz e of entire tumor): ?Greatest Dimension (Centimeters): 2.7 cm ?? Tumor Focality: ?Single focus ?? Visceral Pleura Invasion: ?Not identified ?? Direct Invasion of Adjac ent Structures: ?No adjacent structures present ?? Treatment Effect: ?No known presurgical therapy ?? Lymphovascular Invasion: ?Not identified MARGINS ?? Margins: ?All margins are uninvolved by tumor ? Margins Examined: ?Bronchial ? Margins Examined: ?Vascular ? Margins Examined: ?Parenchymal ? Distance of Invasive Carcinoma from Closest Margin (Centimeters): ?2.3 cm ? Closest Margin: ?Bronchial LYMPH NODES ?? Number of Lymph Nodes Involved: ?0 ?? Number of Lymph Nodes Examined: ?9 ? Crescencio Stations Examined: ?2R: Upper paratracheal ? Crescencio Stations Examined: ?9R: Pulmonary ligament ? Crescencio Stations Examined: ?10R: Hilar ? Crescencio Stations Examined: ?13R: Segmental ? Crescencio Stations Examined: ?14R: Subsegmental ? Crescencio Stations Examined: ?7: Subcarinal PATHOLOGIC STAGE CLASSIFICATION (pTNM, AJCC 8th Edition) ? Primary Tumor (pT): ?pT1c ?? Regional Lymph Nodes (pN): ?pN0 Clinical Malignant 03/21/2021 [facility] Information neoplasm of 3:24 PM LABORATORY lower lobe of BISCUIT MAKER right lung (HRC) Microscopic Microscopic 03/21/2021 [facility] Description examination is 3:24 PM LABORATORY performed. BISCUIT MAKER Special Stains The stain controls have been reviewed and stain appropriately. Elastic stain performed on block E6 does not demonstrate visceral pleural invasion. 03/21/2021 [facility] 3:24 PM LABORATORY BISCUIT MAKER Gross A: 03/21/2021 [facility] Description The specimen is received [facility] for frozen section and labeled with the patient's name and Lymph node, STATION 9. The specimen consists of a 0.2 cm tissue fragment. The specimen is entirely submitted for frozen section in cassette A1. DJ 3:24 PM LABORATORY BISCUIT MAKER B: The specimen is received [facility] for frozen section and labeled with the patient's name and Lymph node, STATION 7. The specimen consists of multiple fragments of soft tissue aggregating to 1 x 1 x 0.5 c m. The specimen is entirely submitted for frozen section i n cassette B1. DJ C: The specimen is received [facility] for frozen section and labeled with the patient's name and Lymph node, STATION 2R AND 4R. The specimen consists of a 1.5 x 1.5 x 0.5 cm portion of fatty tissue. The spec imen is entirely submitted for frozen section in cassette C1 . DJ D: The specimen is received beth and labeled with the patient's name and Lymph node, STATION 10. The specimen consists of a 0.6 x 0.4 x 0.3 cm purple-brown possible lymph node. The possible lymph node is entirely submitted in 1 cassette. SH E: That took so lobraThe speci men is received in formalin and labeled with the patient's name and Lung, right lower lobe, RIGHT LOWER LOBE PLEASE FEEZE PARANCHEAL AREA BY STITCH. The specimen consists o f a 130 g portion of lung pa renchyma measuring 13.5 x 8 x 3.5 cm. A staple line is identified along a portion of the specimen with 1 and sutured designating the desired area of frozen. The sutured paren chymal margin is submitted e n face for frozen section analysis. The pleural surface adjacent to this area is puckered and is inked blue. The remaining pleura is smooth purple-brown. And additional stapl e line is noted and the unde rlying parenchymal margin is inked green. Three possible lymph nodes are identified ranging from 0.3-0.6 cm in greatest dimension. The specimen is sectioned to reveal a 2.7 x 1.8 x 1.5 cm robison-pink mass which appears to extend to the parenchymal margin, possibly involves the pleural surface, is 2.3 cm from the bronchial margin. Is a lso identified are 2 wooten no dules measuring 0.3 and 0.4 cm located 2.2 cm inferior to the main mass. The remaining parenchyma is purple-brown and spongy. College Advisor sections are submitted as follows: E1: Frozen section remnant, en face parenchymal margin neare st mass E2: En face bronchial margin E3: En face vascular margins E4: 3 whole possible lymph nodes E5: Additional en face parenchymal margin near mass is E6-E10: Mass entirely submitted with area of pleural puckeri ng E11: Smaller nodules, whole E12: College Advisor uninvolved parenchyma SH F: The specimen is received beth for frozen section and labeled with the patient's name and Lung, right upper lobe, right upper lobe stitch is previous staple margin. The specimen consists of a 4 x 2 x 1 cm wedge of unremarkable l francine with attached staple lines present. There is an attached suture marking the previous staple line (old margin). No masses or lesions are identified grossly. Is The opposit e stapled edge (new margin) is entirely submitted en face for frozen section in cassette F 1. The remainder of the tissue specimen (excluding staple lines) is submitted in cassette F 2 (closer to old margin/previous staple line). DJ Intraoperative A: 03/21/2021 [facility] Consultation Frozen section diagnosis (FS A1): Station 9 lymph node -- negative. (Result called into OR 6 by [facility] at 3:11 PM, 03/16/2021) 3:24 PM LABORATORY BISCUIT MAKER B: Frozen section diagnosis (FS B1): Station 7 lymph node -- negative. (Result called into OR 6 by J[facility] at 3:19 PM, 03/16/2021) C: Frozen section diagnosis (FS C1): Station 4R and 2R -- negative. (Result called into OR 6 by [facility] at 4:22 PM, 03/16/2021) E: Frozen section diagnosis (FS E1): Right lower lobe -- positive for carcinoma. (Result called into OR 6 by [facility] at 5:05 PM, 03/16/2021) F: Frozen section diagnosis (FS F1): Right upper lobe wedge -- negative. (Result called into OR 6 by [facility] at 5:41 PM, 03/16/2021) Embedded Images 03/21/2021 [facility] 3:24 PM LABORATORY BISCUIT MAKER Specimen Anatomical Collection Method Collection Time Receive d Time (Source) Location / / Volume Laterality Tissue LYMPH NODE BIOPSY 03/16/2021 2:48 PM 02/18 2:59 SPECIMEN / Unknown BISCUIT MAKER PM BISCUIT MAKER Tissue specimen LYMPH NODE BIOPSY 03/16/2021 3:01 PM 0 03/16/2021 3:08 (specimen) SPECIMEN / Unknown BISCUIT MAKER PM BISCUIT MAKER Tissue specimen LYMPH NODE BIOPSY 03/16/2021 3:51 PM 0 03/16/2021 4:07 (specimen) SPECIMEN / Unknown BISCUIT MAKER PM BISCUIT MAKER Tissue specimen LYMPH NODE BIOPSY 03/16/2021 4:16 PM 0 03/16/2021 4:35 (specimen) SPECIMEN / Unknown BISCUIT MAKER PM BISCUIT MAKER Tissue specimen SPECIMEN FROM LUNG 03/16/2021 4:29 PM 03/16/2021 4:35 (specimen) / Unknown BISCUIT MAKER PM BISCUIT MAKER Tissue specimen SPECIMEN FROM LUNG 03/16/2021 5:22 PM 03/16/2021 5:27 (specimen) / Unknown BISCUIT MAKER PM BISCUIT MAKER Gina Tierney MD LAB PATHOLOGY Performing Organization Address [facility] Phon e Number [facility] [address] [place] [address] Blood Type second draw (03/16/2021 10:21 AM BISCUIT MAKER) P athologist Signature ABO O 03/16/2021 [facility] 12:05 PM BISCUIT MAKER BLOOD BANK RH Negative 03/16/2021 [facility] 12:05 PM BISCUIT MAKER BLOOD BANK Specimen Anatomical Collection Method / Collection Time Recei leoncio Time (Source) Location / Volume Laterality Blood Venipuncture / 03/16/2021 10:21 2 Unknown AM BISCUIT MAKER 10:40 AM BISCUIT MAKER Gina Tierney MD LAB_1 Performing Organization Address [facility] Hospital/[facility] Phon e Number [facility] BLOOD BANK [address] [place] [address] Glucose, Whole Blood POCT (03/16/2021 10:17 AM BISCUIT MAKER) Analysis Performed At Patho logist Time Signature Glucose, Whole 90 70 - 180 03/16/2021 [facility] Blood mg/dL 10:19 AM BISCUIT MAKER LABORATORY Performing MT SURG 03/16/2021 REL[facility] Location 10:19 AM BISCUIT MAKER LABORATORY Specimen Anatomical Collection Method Collection Time Receive d Time (Source) Location / / Volume Laterality Blood 03/16/2021 10:17 03/16/2021 AM BISCUIT MAKER 10:19 AM BISCUIT MAKER Gina Tierney MD LAB_1 Performing Organization Address [facility] Phon e Number [facility]OR[facility] [address] [place] [address] ECG 12 Lead Inpatient (03/16/2021 10:08 AM BISCUIT MAKER) P athologist Signature Ventricular Rate 54 BPM MUSE [facility] Atrial Rate 54 BPM [facility]USE [facility] P-R Interval 154 ms MUSE [facility] QRS Duration 86 ms MUSE [facility] QT 448 ms MUSE [facility] QTc 424 ms MUSE [facility] P Bronson 55 degrees MUSE GHP R Bronson 8 degrees MUSE GHP T Bronson 59 degrees MUSE [facility] Specimen (Source) Anatomical Collection Method Collection Time Re ceived Time Location / / Volume Laterality 03/16/2021 10:08 AM BISCUIT MAKER Narrative MUSE [facility] - 03/16/2021 10:23 AM BISCUIT MAKER Sinus bradycardia Poor R wave progression Abnormal ECG No previous ECGs available Confirmed by Freddie Salgado ([id number]) on 10:23:20 AM Procedure Note Freddie Salgado MD - 03/16/2021Format ting of this note might be different from the original. Sinus bradycardia Poor R wave progression Abnormal ECG No previous ECGs available Confirmed by Freddie Salgado ([id number]) on 10:23:20 AM Gina Tierney MD PN ECG ORDERABLES Performing Organization Address City/State/ZIP Code Phon e Number MUSE [facility] [address] [place] [address] US Anesthesia Guided Block (03/16/2021 10:06 AM BISCUIT MAKER) Anatomical Region Laterality Modality Ultrasound Specimen (Source) Anatomical Location Collection Method / Collectio n Time Received Time / Laterality Volume Narrative 03/16/2021 10:06 AM BISCUIT MAKER If an Anesthesia block was performed please see the Anesthesia encounter for documentation. ??This procedure was performed and interpreted by the performing provider. ?? Tommy Amador MD RAD US Antibody Screen (03/16/2021 9:52 AM BISCUIT MAKER) Patholo gist Method Time Signature Antibody Screen Negative 03/16/2021 REL[facility] Interpretation 11:02 AM BISCUIT MAKER BLOOD BANK Specimen Anatomical Collection Method / Collection Time Recei leoncio Time (Source) Location / Volume Laterality Blood Venipuncture / 03/16/2021 9:52 03/16/2021 Unknown AM BISCUIT MAKER 10:02 AM BISCUIT MAKER Gina Tierney MD LAB_1 Performing Organization Address City/State/ZIP Code Phon e Number [facility] [address] [place] [address] Blood Type (03/16/2021 9:52 AM BISCUIT MAKER) P athologist Signature ABO O 03/16/2021 [facility] 11:02 AM BISCUIT MAKER BLOOD BANK RH Negative 03/16/2021 [facility] 11:02 AM BISCUIT MAKER BLOOD BANK Specimen Anatomical Collection Method / Collection Time Recei leoncio Time (Source) Location / Volume Laterality Blood Venipuncture / 03/16/2021 9:52 03/16/2021 Unknown AM BISCUIT MAKER 10:02 AM BISCUIT MAKER Gina Tierney MD LAB_1 Performing Organization Address City/State/ZIP Code Phon e Number [facility] [address] [place] [address] (ABNORMAL) Complete Blood Count-W/Diff (03/16/2021 9:52 AM BISCUIT MAKER) [facility] Method Time Signature WBC 4.8 3.5 - 10.5 03/16/2021 REL[facility] x10(9)/L 10:08 AM BISCUIT [facility]KER LABORATORY RBC 3.83 (L) 3.90 - 03/16/2021 REL[facility] 5.03 10:08 AM BISCUIT MAKER LABORATORY x10(12)/L Hemoglobin 12.1 12.0 - 03/16/2021 REL[facility] 15.5 g/dL 10:08 AM B[facility]CUIT [facility]KER LABORATORY HCT 37.2 34.9 - 03/16/2021 [facility] 44.5 % 10:08 AM BISCUIT [facility]KER LABORATORY MCV 97.1 80.0 - 03/16/2021 [facility] 100.0 fL 10:08 AM BISCUIT MAKER LABORATORY MCH 31.6 27.6 - 03/16/2021 [facility] 33.3 pg 10:08 AM BISCUIT MAKER LABORATORY MCHC 32.5 31.5 - 03/16/2021 [facility] 35.2 g/dL 10:08 AM BISCUIT MAKER LABORATORY RDW 13.5 11.9 - 03/16/2021 [facility] 15.5 % 10:08 AM B[facility]CUIT [facility]ER LABORATORY Platelets 179 150 - 450 03/16/2021 [facility] x10(9)/L 10:08 AM BISCUIT MAKER LABORATORY Automated NRBC 0 <=0 /100 03/16/2021 [facility] WBC 10:08 AM B[facility]CUIT [facility]KER LABORATORY Neutrophil 3.1 1.7 - 7.0 03/16/2021 REL[facility] Absolute 10(9)/L 10:08 AM B[facility]CUIT [facility]ER LABORATORY Lymphocyte 1.3 1.0 - 4.8 03/16/2021 [facility] Absolute 10(9)/L 10:08 AM BISCUIT MAKER LABORATORY Monocytes 0.3 0.2 - 0.9 03/16/2021 [facility] Absolute 10(9)/L 10:08 AM BISCUIT MAKER LABORATORY Eosinophil 0.0 0.0 - 0.5 03/16/2021 [facility] Absolute 10(9)/L 10:08 AM BISCUIT MAKER LABORATORY Basophil 0.0 0.0 - 0.3 03/16/2021 REL[facility] Absolute 10(9)/L 10:08 AM BISCUIT MAKER LABORATORY Immature Gran % 0.2 0.0 - 0.5 03/16/2021 RELIG[facility] % 10:08 AM BISCUIT MAKER LABORATORY Specimen Anatomical Collection Method / Collection Time Recei leoncio Time (Source) Location / Volume Laterality Blood Venipuncture / 03/16/2021 9:52 03/16/2021 Unknown AM BISCUIT MAKER 10:02 AM BISCUIT MAKER Gina Tierney MD LAB_1 Performing Organization Address [facility] Phon e Number [facility] [address] [place] [address] APTT (ACTIVATED PARTIAL THROMBOPLASTIN TIME (03/16/2021 9:52 AM BISCUIT MAKER) P athologist Signature APTT 26.4 22.5 - 36.5 03/16/2021 REL[facility] Seconds 10:20 AM BISCUIT MAKER LABORATORY Specimen Anatomical Collection Method / Collection Time Recei leoncio Time (Source) Location / Volume Laterality Blood Venipuncture / 03/16/2021 9:52 03/16/2021 Unknown AM BISCUIT MAKER 10:02 AM BISCUIT MAKER Gina Tierney MD LAB_1 Performing Organization Address [facility] Phon e Number [facility] [address] [place] [address] INR/PROTIME (03/16/2021 9:52 AM BISCUIT MAKER) P athologist Signature Protime 13.0 11.8 - 14.6 03/16/2021 REL[facility] Seconds 10:20 AM BISCUIT MAKER LABORATORY INR 1.0 0.9 - 1.1 03/16/2021 REL[facility] 10:20 AM BISCUIT MAKER LABORATORY Specimen Anatomical Collection Method / Collection Time Recei leoncio Time (Source) Location / Volume Laterality Blood Venipuncture / 03/16/2021 9:52 03/16/2021 Unknown AM BISCUIT MAKER 10:02 AM BISCUIT MAKER Narrative [facility] LAB[facility]ORY - 03/16/2021 10:20 AM BISCUIT MAKER Therapeutic range determined by protocol established by anticoagulation provider. Gina Tierney MD LAB_1 Performing Organization Address [facility] Phon e Number [facility] [address] [place] [address] (ABNORMAL) Basic Metabolic Panel (03/16/2021 9:52 AM BISCUIT MAKER) [facility] Sodium 143 136 - 145 03/16/2021 [facility] mmol/L 10:29 AM BISCUIT MAKER LABORATORY Potassium 3.9 3.5 - 5.1 03/16/2021 REL[facility] mmol/L 10:29 AM BISCUIT [facility]KER LABORATORY Chloride 116 (H) 98 - 109 03/16/2021 REL[facility] mmol/L 10:29 AM BISCUIT MAKER LABORATORY CO2 20 20 - 29 03/16/2021 [facility] mmol/L 10:29 AM BISCUIT [facility]KER LABORATORY Anion Gap 7 7 - 16 03/16/2021 [facility] mmol/L 10:29 AM [facility] LABORATORY Calcium 8.6 8.4 - 10.4 03/16/2021 REL[facility] mg/dL 10:29 AM B[facility] LABORATORY BUN 14 7 - 26 03/16/2021 [facility] mg/dL 10:29 AM BISCUIT [facility]KER LABORATORY Creatinine 0.94 0.55 - 03/16/2021 REL[facility] 1.02 mg/dL 10:29 AM BISCUIT [facility]KER LABORATORY GFR, Estimated >60 >60 03/16/2021 REL[facility] mL/min/1.7 10:29 AM BISCUIT [facility]KER LABORATORY 3m2 Glucose 105 (H) 70 - 100 03/16/2021 REL[facility] mg/dL 10:29 AM BISCUIT MAKER LABORATORY Comment: The given reference range is fo r the fasting state. Non-fasting reference range for glucose is 70 - 180 mg/dL. Specimen Anatomical Collection Method / Collection Time Recei leoncio Time (Source) Location / Volume Laterality Blood Venipuncture / 03/16/2021 9:52 03/16/2021 Unknown AM BISCUIT MAKER 10:01 AM BISCUIT MAKER Gina Tierney MD LAB_1 Performing Organization Address City/State/ZIP Code Phon e Number [facility] [address] [place] [address] POCT urine - Surgery Use Only (03/16/2021 9:40 AM BISCUIT MAKER) [facility] gist Method Time Signature Urine Negative Negative POCT Test - POC Control Line Yes POCT Present, Clear Background - Internal control Cartridge Lot# [id number] POCT Specimen (Source) Anatomical Collection Method Collection Time Re ceived Time Location / / Volume Laterality Urine 03/16/2021 9:40 AM BISCUIT MAKER Gina Tierney MD ET POINT OF CARE TEST ENTER/ EDIT ORDERABLES Performing Organization Address City/State/ZIP Code Phon e Number POCT documented in this encounter Visit Diagnoses Diagnosis Malignant neoplasm of lower lobe of righ t lung (HRC) - Primary Pain Generalized pain documented in this encounter Admitting Diagnoses Diagnosis Malignant neoplasm of lower lobe of righ t lung (HRC) documented in this encounter Administered Medications Inactive Administered Medications - up to 3 most recent administrations Medication Order MAR Action Action Date Dose Rate Site acetaminophen (TYLENOL) tablet Given 03/21/2021 1:28 PM BISCUIT MAKER 1,00 0 mg 1,000 mg 1,000 mg, Oral, Q6H (NON-STND), First dose on Fri03/17/21 at 0200, Until Discontinued Given 03/21/2021 7:48 AM BISCUIT MAKER 1,000 mg Given 03/20/2021 8:16 PM BISCUIT MAKER 1,000 mg acetaminophen (TYLENOL) tablet 1,000 mg Given 03/16/2021 7:23 PM BISCUIT MAKER 1,000 mg 1,000 mg, Oral, ONCE, On Fri03/16/21 at 1930, For 1 dose, Indications: Pain, PACU (only) bolus epidural with existing solution (for PACU Given 03/16/2021 7:19 PM BISCUIT MAKER 4 mL ONLY) 4 mL 4 mL, Epidural, ONCE, On Fri03/16/21 at 1945, For 1 dose, PACU/Recovery ceFAZolin (aka ANCEF) 2 g in dextrose Started 03/17/2021 5:55 AM BISCUIT MAKER 2 g 200 mL/hr 100 ml IVPB 2 g, Intravenous, Administer over 30 Minutes, Q8H (NON-STND), First dose on Fri03/16/21 at 2200, For 2 doses, Post-op Started 03/16/2021 9:55 PM BISCUIT MAKER 2 g 200 mL/hr dextrose (D50) injection 25 g 25 g, Intravenous, Q15MIN PRN, Hypoglycemia, Per Adult Hypoglycemia Treatment Protocol, Starting on Fri03/16/21 at 181 3, Per Hypoglycemic episode: Give 25g IV push, recheck POCT glucose in 15 minutes , if result less than 70mg/dL, may repeat. After 2 doses notify Practitioner. May continue to zackary at while waiting for call back. diphenhydrAMINE (BENADRYL) capsule 25 mg Given 03/19/2021 1:36 PM BISCUIT MAKER 25 mg 25 mg, Oral, Q4H PRN, Itching, if able to take oral medications, Starting on Fri03/16/21 at 2009, Until Fri03/21/21 at 1620, Give if nalbuphine (NUBAIN) not effective and if able to take oral medications., Post-op Given 03/17/2021 12:23 PM BISCUIT MAKER 25 mg diphenhydrAMINE (BENADRYL) injection 25 mg 25 mg, Intravenous, Q4H PRN, Itching, if unable to take oral medications, Starting on Fri03/16/21 at 2010, Until Fri03/21/21 at 1620, Give if nalbuphine (NUBAIN) not effective and if unable to take oral medications., Pos t-op fentaNYL (SUBLIMAZE) injection 50-100 mc g Given 03/16/2021 10:45 AM BISCUIT MAKER 50 mcg 50-100 mcg, Intravenous, [id number], Pain, Sedation, Procedure, Starting on Fri03/16/21 at 1006, Until Fri03/16/21 at 2007, For 2 doses, As directed by anesthesiologist, Pre-op fentaNYL citrate (PF) Rate/Dose Verify 03/21/2021 6:02 AM BISCUIT MAKER 10 mL/hr (SUBLIMAZE) 5 mcg/mL, bupivacaine (PF) (SENSORCAINE) 0.125 % in sodium chloride 0.9 % 100 mL (PRESERVATIVE FREE) epidural CADD infusion Epidural, CONTINUOUS, Starting on Fri03/16/21 at 1530, Run epidural solution at 10 ml/hour per infusion pump Rate/Dose Verify 03/21/2021 3:20 AM BISCUIT MAKER 10 mL/hr Started 03/20/2021 10:47 PM BISCUIT MAKER 10 mL/hr FLUoxetine (PROZAC) capsule 10 mg Given 03/21/2021 7:48 AM BISCUIT MAKER 10 mg 10 mg, Oral, DAILY, First dose on 03/17/21 at 0800, Until Discontinued Given 03/20/2021 8:15 AM BISCUIT MAKER 10 mg Given 03/19/2021 8:58 AM BISCUIT MAKER 10 mg furosemide (LASIX) tablet 20 mg Given 03/21/2021 7:48 AM BISCUIT MAKER 20 mg 20 mg, Oral, DIURETIC - 0800/1700, First dose on Fri03/18/21 at 1000, Until Discontinued Given 03/20/2021 5:34 PM BISCUIT MAKER 20 mg Given 03/20/2021 8:15 AM BISCUIT MAKER 20 mg glucagon rDNA (diagnostic) (GLUCAGEN) in jection 1 mg 1 mg, Intramuscular, Q15MIN PRN, Hypoglycemia, Per Jhon lt Hypoglycemia Treatment Protocol, Starting on Fri03/16/21 at 1813, Until Fri at 1620, Per Hypoglycemic episode: Give 1mg IM, turn patient on side to prevent aspiration if vomits. If appropriate, establish IV access STAT. Rech blanquita POCT glucose in 15 minutes, if result less than 70mg/dL and still no IV access, may repeat 1mg IM x 1. Recheck POCT glucose in 15 minutes, if result is less than 70mg/dL notify Practitioner. glucose (GLUTOSE) oral gel 15 g of gluco se 15 g of glucose, Oral, Q15MIN PRN, Hypog lycemia, Per Adult Hypoglycemia Treatment Protocol, Starting on Fri03/16/21 at 1813, Until Fri at 1620, Give 15g orally, recheck POCT glucose in 15 minutes, if result less than 70mg/dL, may repeat. After 2 doses notify Practitione r. May continue to treat while waiting for call back. 37.5g tube delivers 15g of glucose guaiFENesin (MUCINEX) extended release Given 03/21/2021 7:48 AM BISCUIT MAKER 1,200 mg tablet 1,200 mg 1,200 mg, Oral, BID, First dose on Fri03/16/21 at 2200, Until Discontinued, Tablet should be swallowed whole. Take with a full glass of water. Given 03/20/2021 8:05 PM BISCUIT MAKER 1,200 mg Given 03/20/2021 8:14 AM BISCUIT MAKER 1,200 mg hydrocortisone 2.5 % cream 1 Given 03/20/2021 10:59 PM BISCUIT MAKER 1 Alexandrea lication Back Application 1 Application, Topical, BID PRN, Rash, Itching, Starting on Fri03/16/21 at 2008, Apply topically to skin Hazardous waste disposal required. hydrOXYzine pamoate (VISTARIL) capsule 2 5 mg Given 03/21/2021 6:08 AM BISCUIT MAKER 25 mg 25 mg, Oral, Q6H PRN, Itching, Starting on Fri03/16/21 at 2008, Until Fri03/21/21 at 1620 Given 03/20/2021 10:57 PM BISCUIT MAKER 25 mg Given 03/19/2021 8:17 PM BISCUIT MAKER 25 mg ibuprofen (MOTRIN) tablet 400 mg Given 03/21/2021 11:35 AM BISCUIT MAKER 400 mg 400 mg, Oral, QID, First dose on Fri03/21/21 at 1200, Until Discontinued, Give with food or milk. ketorolac (TORADOL) injection 15 mg Given 03/20/2021 8:18 PM BISCUIT MAKER 15 mg 15 mg, Intravenous, Q6H PRN, Other, Mild Pain (pain score 1-4), Starting on Fri03/16/21 at 2008, Until Fri03/21/21 at 1105, For 5 days, Do not give both ibuprofen and ketorolac. May give ketorolac in addition to acetaminophen-codeine or oxycodone. Given 03/19/2021 9:02 AM BISCUIT MAKER 15 mg Given 03/18/2021 2:17 PM BISCUIT MAKER 15 mg lactated ringers infusion Started 03/16/2021 4:56 PM BISCUIT MAKER 25 mL/hr, Intravenous, CONTINUOUS, Starting on Fri03/16/21 at 0945, Administer on all preop surgery patients, ages 12 and older, unless specified differently in the Protocol for Preop Initiation of IV fluids Order Set., Pre-op Restarted 03/16/2021 1:47 PM BISCUIT MAKER Started 03/16/2021 10:08 AM BISCUIT MAKER 25 mL/hr 25 mL/hr lidocaine PF (XYLOCAINE) 1 % injection Given 03/16/2021 10:08 AM BISCUIT MAKER 0.3 mL 0.1-0.3 mL 0.1-0.3 mL, Intradermal, ONCE, On Fri03/16/21 at 0945, For 1 dose, Lidocaine to be used for IV starts unless patient refuses., Pre-op metoprolol succinate (TOPROL XL) extended Given 03/20/2021 8:05 PM BISCUIT MAKER 100 mg release tablet 100 mg 100 mg, Oral, DAILY, First dose on Fri03/17/21 at 2000, Until Discontinued, Tablet may be split in half, but not crushed. Given 03/19/2021 8:07 PM BISCUIT MAKER 100 mg Given 03/18/2021 8:16 PM BISCUIT MAKER 100 mg metoprolol succinate (TOPROL XL) extended Given 03/18/2021 8:41 AM BISCUIT MAKER 50 mg release tablet 50 mg 50 mg, Oral, DAILY, First dose on Fri03/17/21 at 0800, Until Discontinued, Tablet may be split in half, but not crushed. Given 03/17/2021 8:04 AM BISCUIT MAKER 50 mg midazolam (VERSED) injection 1-2 mg Given 03/16/2021 10:47 AM BISCUIT MAKER 1 mg 1-2 mg, Intravenous, [id number], Sedation, Anxiety, Procedure, Starting on Fri03/16/21 at 1006, Until Fri03/16/21 at 2007, As directed by anesthesiologist MAX Dose 2mg, Pre-op Given 03/16/2021 10:45 AM BISCUIT MAKER 1 mg NaCl 0.9%-KCl 20 mEq/liter Rate/Dose Change 03/19/2021 11:29 AM 10 mL/hr infusion BISCUIT MAKER Intravenous, at 10 mL/hr, CONTINUOUS, Starting on Fri03/16/21 at 2030, Post-op Rate/Dose Verify 03/19/2021 10:48 AM BISCUIT MAKER 75 mL/hr New Bag Started 03/19/2021 5:15 AM BISCUIT MAKER 75 mL/hr nalbuphine (NUBAIN) 1-2 mg in sodium chloride Given 03/19/19 3:31 AM BISCUIT MAKER 2 mg 0.9 % 1-2 mL syringe 1-2 mg, Intravenous, Q4H PRN, Itching, Starting on Fri03/16/21 at 2009, Notify pharmacy to compound and send dose when needed., Post-op Given 03/18/2021 8:14 PM BISCUIT MAKER 2 mg Given 03/18/2021 2:17 PM BISCUIT MAKER 2 mg naloxone (NARCAN) injection 0.08 mg 0.08 mg, Intravenous, PRN, Other, for re sp rate <10/min, Starting on Fri03/16/21 at 2010, Until Fri03/21/21 at 1620, Call ane sthesiologist if naloxone (NARCAN) given. Dilute naloxone (NARCAN) 0.4mg/ml with 9mL NS to a fin al concentration of 0.04mg/ml. Give 0.08mg/2ml in 2minute intervals as nee ded., Post-op naloxone (NARCAN) injection 0.4 mg 0.4 mg, Intravenous, ONCE PRN, Opioid Re versal, Starting on Fri03/16/21 at 1505, Until Fri03/21/21 at 1620, For 1 dose, For apnea or imm inent respiratory arrest. Notify MD if naloxone is given. oxyCODONE (ROXICODONE) immediate release Given 03/21/2021 11:35 AM BISCUIT MAKER 5 mg tablet 5 mg 5 mg, Oral, Q6H PRN, Pain, Severe Pain (pain score 8-10), Starting on Fri03/21/21 at 1105, Until Fri03/21/21 at 1620 sodium chloride 0.9% 0.9 % injection - ADS Given 03/17/2021 7:56 PM BISCUIT MAKER Override Pull Starting on 03/17/21 at 1948, Until 03/17/21 at 1956, For 1 dose, Ankit Jett: cabinet override sodium chloride 0.9% injection 10-60 mL Given 03/20/2021 8:17 PM BISCUIT MAKER 20 mL 10-60 mL, Intravenous, BID, First dose on Fri03/20/21 at 2045, Until Discontinued, For an INT flush, flush with at least 10 mL. For PICC (including Power Injectable PICC), flush with 10 mL. For Port-a-Cath, flush with a minimum of 10mL. For Jordan, flush with a minimum of 10 mL. For jugular, subclavian, femoral central lines, flush with a minimum 10 mL. For additional information about flushing processes, reference the Vascular Access Device Users Guide. sodium chloride 0.9% injection 10-60 mL 10-60 mL, Intravenous, PRN, Line Patency, Line Care, S tarting on Fri03/20/21 at 2017, Until Fri03/21/21 at 1620, For an I NT flush, flush with at least 10 mL. For PICC (including Power Injectable PICC), flush with 10 mL. For Port-a-Cath, flush with a minimum of 10mL. For Jordan, flu sh with a minimum of 10 mL. For jugular, subclavian, femoral central lines, flush with a minimu m 10 mL. For additional information about flushing processes, re ference the Vascular Access Device Users Guide. white petrolatum (VASELINE) gel - ADS Override Given 03/16/2021 10:00 PM BISCUIT MAKER Lips Pull Starting on Fri03/16/21 at 1930, For 1 dose, Jemima Beverly: cabinet override documented in this encounter Active and Recently Administered Medications Times are shown in BISCUIT MAKER. Scheduled Medication Order 03/19/2021 03/20/2021 03/21/2021 acetaminophen (TYLENOL) tablet 1,000 mg 0320 (Not Give n - Provider: Jan Broderick RN - Reason: Patient/family refused)0858 (Given - Provider: Emani Joe RN)1336 (Given - Provider: Emani Joe RN)2007 (Given - Provider: Syl Sibley) 021 (Not Given - Provider: JAYDEN BOLES - Reason: Patient/family refused)0815 (Given - Provider: Emani Joe RN)1352 (Given - Provider: Emani Joe RN)2015 (Given - Provider: JAYDEN BOLES) 031 (Not Given - Provider: JAYDEN BOLES - Reason: Patient/family refused)0748 (Given - Provider: Montserrat Chavez RN)1328 (Given - Provider: Montserrat Chavez RN) 1,000 mg, Oral, Q6H (NON-STND), First do se on 03/17/21 at 0200, Until Discontinued FLUoxetine (PROZAC) capsule 10 mg 0858 (Given - Provider: Russell Joe RN) 0815 (Given - Provider: Emani Joe RN) 0748 (Given - Provider: Montserrat Chavez RN) 10 mg, Oral, DAILY, First dose on 03/17/21 at 0800, Until Dis continued furosemide (LASIX) tablet 20 mg 0858 (Given - Provider : Emani Joe RN)1620 (Given - Provider: Emani Joe RN) 0815 (Given - Provider: Emani Joe RN)1734 (Given - Provider: Emani Joe RN) 0748 (Given - Provider: Montserrat Chavez RN) 20 mg, Oral, DIURETIC - 0800/1700, First dose on Fri03/18/21 at 1000, Until Discontinued guaiFENesin (MUCINEX) extended release tablet 1,200 mg 0858 (Given - Provider: Emani Joe RN)2005 (Given - Provider: Syl Sibley) 0814 (Given - Provider: Emani Joe RN)2004 (Given - Provider: JAYDEN BOLES) 0748 (Given - Provider: Montserrat Chavez RN) 1,200 mg, Oral, BID, First dose on Fri at 2200, Until Discontinued, Tablet should be swallowed whole. Take with a full glass of water. ibuprofen (MOTRIN) tablet 400 mg 1135 (Given - Provider: Montserrat Chavez RN) 400 mg, Oral, QID, First dose on 03/21 at 1200, Until Discontinued, Give with food or milk. metoprolol succinate (TOPROL XL) extended release tabl et 100 mg 2006 (Given - Provider: Syl Sibley) 2004 (Given - Provider: JAYDEN BOLES) 100 mg, Oral, DAILY, First dose on Fri at 2000, Until Discontinued, Tablet may be split in half, but not crushed. metoprolol succinate (TOPROL XL) extended release tabl et 50 mg 0800 (Automatically Held - Provider: Nathaly Gonzalez PA-C) 0800 (Automatically Held - Provider: Nathaly Gonzalez PA-C) 0800 (Automatically Held - Provider: Marguerite Gonzalez PA-C)1620 (Unheld by provider in Manage Orders - Provider: Inpatient Template [facility]) 50 mg, Oral, DAILY, First dose on Sat at 0800, Until Discontinued, Tablet may be split in half, but not crushed. sodium chloride 0.9% injection 10-60 mL 2016 (Given - Provider: JAYDEN BOLES) 0738 (Not Given - Provider: Montserrat zaman RN - Reason: Other (Enter Reason in Comment Area) - Comment: IVF infusing) 10-60 mL, Intravenous, BID, First dose o n 03/20/21 at 2045, Until Discontinued, For an INT flush, flush with at least 10 mL. For PICC (including Power Injectable PICC), flush with 10 mL. For Port-a-Ca th, flush with a minimum of 10mL. For Hi ckman, flush with a minimum of 10 mL. For jugular, subclavian, femoral central lines, flush with a minimum 10 mL. For additional information about flushing proces ses, reference the Vascular Access Device Users Guide. Continuous Medication Order 03/19/2021 03/20/2021 03/21/2021 fentaNYL citrate (PF) (SUBLIMAZE) 5 mcg/ mL, bupivacaine (PF) (SENSORCAINE) 0.125 % in sodium chloride 0.9 % 100 mL (PRESERVATIVE FREE) epidural CADD infusion (CANCELED) 0838 (Started - Provider: Emani Joe RN)1828 (New Syringe/Cassette - Provider: Emani Joe RN)1944 (Rate/Dose Verify - Provider: JAYDEN BOLES) 0217 (Rate/Dose Verify - Provider: [facility] JAYDEN HOLLEY)0345 (New Syringe/Cassette - Provider: JAYDEN BOLES)1319 (Started - Provider: Emani Joe RN)2016 (Rate/Dose Verify - Provider: JAYDEN BOLES) 0320 (Rate/Dose Verify - Provider: JAYDEN BOLES)0602 (Rate/Dose Verify - Provider: JAYDEN BOLES) Epidural, CONTINUOUS, Starting on Fri at 1530, Run epidural solution at 10 ml/hour per infusion pump 2247 (Started - Provider: [facility] JAYDEN HOLLEY) NaCl 0.9%-KCl 20 mEq/liter infusion 0515 (New Bag Star nazario - Provider: Jan Broderick RN)1048 (Rate/Dose Verify - Provider: Emani Joe RN)1129 (Rate/Dose Change - Provider: Emani Joe RN) Intravenous, at 10 mL/hr, CONTINUOUS, Starting on Fri 2 at 2030, Post-op PRN Medication Order 03/19/2021 03/20/2021 03/21/2021 bisacodyl (DULCOLAX) rectal suppository 10 mg 10 mg, Rectal, DAILY PRN, Other, Mild Co nstipation NOT relieved by magnesium hydroxide, Starting on Fri03/16/21 at 2008, Until Fri03/21/21 at 1620, Post-op dextrose (D50) injection 25 g(Linked Group 1) 25 g, Intravenous, Q15MIN PRN, Hypoglyce morenita, Per Adult Hypoglycemia Treatment Protocol, Starting on Fri03/16/21 at 1813, Per Hypoglycemic episode: Give 25g IV push, recheck POCT glucose in 15 minutes, i f result less than 70mg/dL, may repeat. After 2 doses notify Practitioner. May continue to treat while waiting for call back. diphenhydrAMINE (BENADRYL) capsule 25 mg(Linked Group 2) 1336 (Given - Provider: Emani Joe, COLETTE) 25 mg, Oral, Q4H PRN, Itching, if able t o take oral medications, Starting on Fri03/16/21 at 2009, Until Fri03/21/21 at 1620, Give if nalbuphine (NUBAIN) not effective and if able to take oral medications., Post-op diphenhydrAMINE (BENADRYL) injection 25 mg(Linked Grou p 2) 1336 (See Alternative - Provider: Emani Joe RN) 25 mg, Intravenous, Q4H PRN, Itching, if unable to take oral medications, Starting on Fri03/16/21 at 2009, Until Fri03/21/21 at 1620, Give if nalbuphine (NUBAIN) not effective and if unable to take oral medications., Post-op glucagon rDNA (diagnostic) (GLUCAGEN) injection 1 mg(Linked Grou p 1) 1 mg, Intramuscular, Q15MIN PRN, Hypogly cemia, Per Adult Hypoglycemia Treatment Protocol, Starting on Fri03/16/21 at 1813, Until Fri03/21/21 at 1620, Per Hypoglycemic episode: Give 1mg IM, turn patient o n side to prevent aspiration if vomits. If appropriate, establish IV access STAT. Recheck POCT glucose in 15 minutes, if result less than 70mg/dL and still no IV access, may repeat 1mg IM x 1. Recheck P OCT glucose in 15 minutes, if result is less than 70mg/dL no tify Practitioner. glucose (GLUTOSE) oral gel 15 g of glucose(Linked Group 1) 15 g of glucose, Oral, Q15MIN PRN, Hypog lycemia, Per Adult Hypoglycemia Treatment Protocol, Starting on Fri03/16/21 at 1813, Until Fri03/21/21 at 1620, Give 15g orally, recheck POCT glucose in 15 minutes , if result less than 70mg/dL, may repea t. After 2 doses notify Practitioner. May continue to treat while waiting for call back. 37.5g tube delivers 15g of glucose hydrocortisone 2.5 % cream 1 Application 2258 (Given - Provider: JAYDEN BOLES) 1 Application, Topical, BID PRN, Rash, I tching, Starting on Fri03/16/21 at 2008, Apply topically to skin Hazardous waste disposal required. hydrOXYzine pamoate (VISTARIL) capsule 25 mg 2016 (Giv en - Provider: Syl Sibley) 2256 (Given - Provider: JAYDEN BOLES) 06 ( Given - Provider: JAYDEN BOLES) 25 mg, Oral, Q6H PRN, Itching, Starting on Fri03/16/21 at 2008, Until Fri03/21/21 at 1620 ketorolac (TORADOL) injection 15 mg (CANCELED) 901 (G iven - Provider: Emani Joe RN) 2017 (Given - Provider: JAYDEN BOLES) 15 mg, Intravenous, Q6H PRN, Other, Mild Pain (pain score 1-4), Starting on Fri03/16/21 at 2008, Until Fri03/21/21 at 1105, For 5 days, Do not give both ibuprofen and ketorolac. May give ketorolac in addition to acetaminophen-codeine or oxycodone. lidocaine (UROJET) 2 % prefilled syringe Urethral, PRN, Local Anesthetic, Urethra l Discomfort, Starting on Fri03/16/21 at 2008, Consider using for any adult male or any patients with a history of painful urinary catheter insertion and no lidocaine allergy., Post-op magnesium hydroxide (MILK OF MAGNESIA) suspension 45 mL 45 mL, Oral, DAILY PRN, Other, Mild Cons tipation, Starting on Fri03/16/21 at 2008, Until Fri03/21/21 at 1620, Post-op nalbuphine (NUBAIN) 1-2 mg in sodium chloride 0.9 % 1- 2 mL syringe 0331 (Given - Provider: Jan Broderick RN) 1-2 mg, Intravenous, Q4H PRN, Itching, S tarting on Fri03/16/21 at 2009, Notify pharmacy to compound and send dose when needed., Post-op naloxone (NARCAN) injection 0.08 mg 0.08 mg, Intravenous, PRN, Other, for re sp rate <10/min, Starting on Fri03/16/21 at 2009, Until Fri03/21/21 at 1620, Call anesthesiologist if naloxone (NARCAN) given. Dilute naloxone (NARCAN) 0.4mg/ml with 9mL NS to a final concentration of 0.04mg/ml. Give 0.08mg/2ml in 2minute intervals as needed., Post-op naloxone (NARCAN) injection 0.4 mg 0.4 mg, Intravenous, ONCE PRN, Opioid Re versal, Starting on Fri03/16/21 at 1505, Until Fri03/21/21 at 1620, For 1 dose, For apnea or imminent respiratory arrest. Notify MD if naloxone is given. ondansetron (ZOFRAN) injection 4 mg 4 mg, Intravenous, Q6H PRN, Nausea, Vomi ting, Starting on Fri03/16/21 at 2008, Until Fri03/21/21 at 1620, Post-op oxyCODONE (ROXICODONE) immediate release tablet 5 mg 1135 (Given - Provider: Montserrat Chavez RN) 5 mg, Oral, Q6H PRN, Pain, Severe Pain ( pain score 8-10), Starting on Fri03/21/21 at 1105, Until Fri03/21/21 at 1620 sodium chloride 0.9% injection 10-60 mL 10-60 mL, Intravenous, PRN, Line Patency , Line Care, Starting on Fri03/20/21 at 2017, Until Fri03/21/21 at 1620, For an INT flush, flush with at least 10 mL. For PICC (including Power Injectable PICC), fl ush with 10 mL. For Port-a-Cath, flush w ith a minimum of 10mL. For Jordan, flush with a minimum of 10 mL. For jugular, subclavian, femoral central lines, flush with a minimum 10 mL. For additional info rmation about flushing processes, refere aze the Vascular Access Device Users Guide. Linked Groups Order Group 1: glucose (GLUTOSE) oral gel 15 g of glucoseJump to med 15 g of glucose, Oral, Q15MIN PRN, Hypog lycemia, Per Adult Hypoglycemia Treatment Protocol, Starting on Fri03/16/21 at 1813, Until Fri03/21/21 at 1620
Give 15g orally, recheck POCT glucose in 15 minutes, if result less than 70mg/dL, m ay repeat. After 2 doses notify Practitioner. May continue to treat while waiting for call back. 37.5g tube delivers 15g of glucose
Or dextrose (D50) injection 25 gJump to med 25 g, Intravenous, Q15MIN PRN, Hypoglyce morenita, Per Adult Hypoglycemia Treatment Protocol, Starting on Fri03/16/21 at 1813
Per Hypoglycemic episode: Give 25g IV push, recheck POCT glucose in 15 minutes, if result less than 70mg /dL, may repeat. After 2 doses notify Practitioner. May continue to treat while waiting for call back.
Or glucagon rDNA (diagnostic) (GLUCAGEN) injection 1 mgJump to med 1 mg, Intramuscular, Q15MIN PRN, Hypogly cemia, Per Adult Hypoglycemia Treatment Protocol, Starting on Fri03/16/21 at 1813, Until Fri03/21/21 at 1620
Per Hypoglycemic episode: Give 1mg I M, turn patient on side to prevent aspir ation if vomits. If appropriate, establish IV access STAT. Recheck POCT glucose in 15 minutes, if result less than 70mg/dL and still no IV acce ss, may repeat 1mg IM x 1. Re check POCT glucose in 15 minutes, if result is less than 70mg/dL notify Practitioner.
Group 2: diphenhydrAMINE (BENADRYL) capsule 25 mgJump to med 25 mg, Oral, Q4H PRN, Itching, if able t o take oral medications, Starting on Fri03/16/21 at 2009, Until Fri03/21/21 at 1620
Give if nalbuphine (NUBAIN) not effective and if able to take oral medications.
Post-op Or diphenhydrAMINE (BENADRYL) injection 25 mgJump to med 25 mg, Intravenous, Q4H PRN, Itching, if unable to take oral medications, Starting on Fri03/16/21 at 2009, Until Fri03/21/21 at 1620
Give if nalbuphine (NUBAIN) not effective and if unable to take oral medications.
Post-op documented in this encounter Care Teams Steam Oven Operator Relationship Specialty Start Date End Date David Choudhury MD PCP - General Family Practice 03/16/21 [id number], [place] [id number] documented as of this encounter
--- OUTSIDE RECORDS SUMMARY | 2021-11-09 06:14 | XMS_ITS | Encounter Summary ---
:1970 Author Organization [facility] Address [address] [place] [address] Care Team Providers Name Role Phone David Choudhury MD Primary Care Provider [phone] Reason for Referral Procedure/Equipment (Routine) - Incomplete Specialty Diagnoses / Procedures Referred By Contact Refer red To Contact Diagnoses Malignant neoplasm of lower lobe of right lung (HRC) Kian Winters, JUANCARLOS Procedures CT Chest WO IV Cont [address] [place], [place] [address] Referral ID Status Reason Start Date Expiration Date Visits V isits Requested Authorized [id number] Incomplete 04/17/2021 07/17/2022 1 1 INAL SUPERVISOR Reason for Visit Reason Comments Follow-up Encounter Details Date Type Department Care Team Description 04/17/2021 [facility] Kian Winters, Malignant neoplasm Encounter [facility] Oncology [address] [place] right lung (HRC) [address] [facility] (Primary Dx) [place] [address] [phone] Social History Tobacco Use Types Packs/Day Years [...] at Date Recorded 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 guaiFENesin (MUCINEX) TAKE 2 [...] documented as of this encounter Progress Notes Kian Winters MBBS - 04/17/2021 9:30 AM CST NAME: MARII [facility]OS[facility] VISIT DATE OF VISIT: 03/01/2021 : 1970 REASON FOR VISIT: Adenocarcinoma of the right lung, AJCC prognostic group IA3, pT1c pN0 cM0 HISTORY OF PRESENTING ILLNESS: Ms. Marii José is a pleasant 51-year-old female with right-sided lung cancer, being evaluated in Oncology Clinic. Please refer to my consultation note from 03/01/2021for details regarding her history and presentation. 1. She had been in her usual state of health, but on 02/02/2021, she developed a syncopal episode while obtaining a pedicure. Shortly prior to the pedicure she had donated blood, but she had been donating blood periodically for several years and had never experienced a similar episode previously. She was evaluated at the [facility] Emergency Room. She was noted to have an elevated D- dimer, and a CT pulmonary angiogram was ordered. There was no pulmonary embolus, but she was noted to have a right lower lobe lung mass. She was referred to Pulmonary Medicine and evaluated by Dr. Greyson Ovalle. She was set up for a CT-guided biopsy of the right lung mass on 02/22/2021. This was consistent with a low-grade adenocarcinoma. A PET scan was obtained on 02/26/2021. She was noted to have a 2.5 x 1.5 cm right lower lobe nodule, intensely hypermetabolic with an SUV of 11. There were no hypermetabolic thoracic lymph nodes. She did have a few tiny hypermetabolic dermal foci thought to be nonspecific. 2. She was evaluated by Dr. Hull from thoracic surgery. On 03/16/2021 she underwent a right lower lobectomy with a mediastinal and hilar lymph node dissection, she also underwent a partial right upperlobe wedge resection to achieve negative margins. She was found to have a 2.7 cm grade 2 adenocarcinoma involving the right lower lobe, unifocal, no lymphovascular invasion, negative margins. 0/9 lymphnodes were involved, these included the 2R upper paratracheal, 9R pulmonary ligament lymph nodes, 10R hilar lymph nodes, 13R abd 14 R (segmental and subsegmental lymph nodes) and station 7 subcarinal lymph nodes. Interim history: At today's visit she reports she is doing well. She believe she is recovering quitewell from the surgery. Continues to have mild incisional site chest wall discomfort, but this is improving every day. She is back on her feet, up and about. No dyspnea at rest, no chest pain, occasionally has a bit of a dry cough. Denies any headache or bone pain. No recent fevers or infectious-type sy mptoms. Denies any unusual bleeding, specifically no epistaxis, gum bleeding, or blood in the urine or stool. PAST HISTORY: 1. Migraines. 2. Ureteric stone, status post lithotripsy. 3. Appendectomy in December 2020. MEDICATIONS: Reviewed. SOCIAL HISTORY: Does not smoke and has never smoked. Lives with in [place]. They have 3 children. 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 FAMILY HISTORY: Her father had developed non-Hodgkin lymphoma. Her paternal uncle who was a smoker had developed lung cancer. PHYSICAL EXAM: Pleasant 51-year-old female, appears well, does not appear to be in acute medical distress. HEENT: No scleral icterus. No oral thrush. LYMPH: No palpable lymph nodes in the neck or axilla. HEART: Regular rate and rhythm, no rub or gallop. LUNGS: Bilateral vesicular breath sounds, no rales. ABDOMEN: No abdominal tenderness, no hepatosplenomegaly. EXTREMITIES: No leg edema. NEURO: She is alert and oriented. PET scan and CT pulmonary angiogram as discussed above. LABS: Reviewed in [facility]. From 03/16/2021 her creatinine was 0.94, WBC 4.8, hemoglobin 12.1, [id number], ANC 3.1 ASSESSMENT AND PLAN: This is a 51-year-old female with a low-grade carcinoma of the right lower lobeof the lung, being evaluated in Oncology Clinic. Her ECOG performance status is 0. 1. Low-grade carcinoma of the right lower lobe of the lung, AJCC prognostic stage group IA3, pT1c pN0 c M0 : As outlined above, she presented with a syncopal episode shortly after a blood donation, andon further evaluation in the emergency room, was found on a CT pulmonary angiogram to have a right lower lobe lung mass which was biopsied on 02/22/2021, consistent with a low-grade adenocarcinoma. HerPET scan on 02/28/2021 revealed a 2.5 cm hypermetabolic lung mass in the right lower lobe, with no metabolic adenopathy and no distant metastases. On 03/16/2021 she underwent a right lower lobectomy with a mediastinal and hilar lymph node dissection, she also underwent a partial right upper lobe wedgeresection to achieve negative margins. She was found to have a 2.7 cm grade 2 adenocarcinoma involving the right lower lobe, unifocal, no lymphovascular invasion, negative margins. 0/9 lymph nodes wereinvolved, these included the 2R upper paratracheal, 9R pulmonary ligament lymph nodes, 10R hilar lymph nodes, 13R abd 14 R (segmental and subsegmental lymph nodes) and station 7 subcarinal lymph nodes.The AJCC prognostic stage group was IA3, pT1c,pN0,cM0. I had a lengthy discussion with her at today's visit. We reviewed the diagnosis, stage, natural history, prognosis and treatment options. I did review that this was an early stage lung cancer which wasresected with negative margins and negative lymph nodes. I reviewed standardized guidelines including the NCCN guidelines. Based on the early stage, I do not believe there is any role for adjuvant chemotherapy, immunotherapy or targeted therapy. This was reviewed in details with her. I did review thatI am very optimistic about a favorable prognosis, but we will need to continue to monitor her clinically and radiologically. As per standardized guidelines I would recommend obtaining a CT chest at least every 6 months for the 1st couple of years and then annually thereafter. We will schedule her 1st postoperative CT scan of the chest in late June and I will bring her back to clinic for a visit. I also did review some of the signs and symptoms she should watch for, reviewed survivorship issues. Encouraged her to continue to follow with her primary care provider on a regular basis for routine healthcare maintenance. She did have several excellent questions which I answered to the best of my ability. She was in agreement with the plan of care. We will schedule her for a follow-up in the 3rd or 4th week of June [address] chest prior to that visit. Total time including a detailed review of her clinical course, her recent labs and imaging studies, a review of the operative report, a review of the surgical pathology report, a discussion of the plangoing forward in terms of monitoring, and the time to document this note was 30 minutes. INAL SUPERVISOR documented in this encounter Plan of Treatment Not on filedocumented as of this encounter Results CT Chest WO IV Cont (06/29/2021 10:51 AM CDT) Anatomical Region Laterality Modality Chest, Lung Computed Tomography Specimen (Source) Anatomical Collection Method Collection Time Re ceived Time Location / / Volume Laterality 06/29/2021 10:44 AM CDT Impressions 06/29/2021 1:56 PM CDT COMPARISON: PET/CT 02/28/2021, outside chest CT 02/02/2021. TECHNIQUE: Noncontrast images were obtai thiago through the chest. FINDINGS: CHEST WALL AND LOWER NECK: Unremarkable. LYMPHADENOPATHY: No mediastinal, hilar o r axillary adenopathy. CARDIOMEDIASTINUM: Unremarkable. VISUALIZED UPPER ABDOMEN: Nonobstructing calculi in the visualized portions of the kidneys, the largest seen is 0.3 cm in the upper pole of the left kidney. PLEURA/ PLEURAL EFFUSION: Trace right pl eural effusion. BONES: Unremarkable. LUNG AND LARGE AIRWAYS: New postoperativ e changes consistent with a right lower lobectomy and upper lobe wedge resection. No new/enlarging suspicious pulmonary nodules/masses or opacities. A few scatter ed pulmonary nodules measuring 0.4 cm or less such as in the right lung on series 3 image 42 or along the left major fissure on images 23 and 33 are unchanged. IMPRESSION: Interval postoperative tarango es to the right lung. No evidence for recurrent/metastatic disease in the chest. Procedure Note Coleman Mota MD - 06/29/2021For matting of this note might be different from the original. IMPRESSION COMPARISON: PET/CT 02/28/2021, outside est CT 02/02/2021. TECHNIQUE: Noncontrast images were obtai thiago through the chest. FINDINGS: CHEST WALL AND LOWER NECK: Unremarkable. LYMPHADENOPATHY: No mediastinal, hilar o r axillary adenopathy. CARDIOMEDIASTINUM: Unremarkable. VISUALIZED UPPER ABDOMEN: Nonobstructing calculi in the visualized portions of the kidneys, the largest seen is 0.3 cm in the upper pole of the left kidney. PLEURA/ PLEURAL EFFUSION: Trace right pl eural effusion. BONES: Unremarkable. LUNG AND LARGE AIRWAYS: New postoperativ e changes consistent with a right lower lobectomy and upper lobe wedge resection. No new/enlarging suspicious pulmonary nodules/masses or opacities. A few scattered pulmonary nodules measuring 0.4 cm or le ss such as in the right lung on series 3 image 42 or along the left major fissure on images 23 and 33 are unchanged. IMPRESSION: Interval postoperative tarango es to the right lung. No evidence for recurrent/metastatic disease in the chest. Kian Winters [facility] documented in this encounter Visit Diagnoses Diagnosis Malignant neoplasm of lower lobe of righ t lung (HRC) - Primary Malignant neoplasm of lower lobe of righ t lung (HRC) documented in this encounter Care Teams Child Study Team Director Relationship Specialty Start Date End Date David Choudhury MD PCP - General Family Practice 03/16/21 [address], [place] [id number] documented as of this encounter
--- OUTSIDE RECORDS SUMMARY | 2021-11-09 06:14 | XMS_ITS | Encounter Summary ---
:1970 Author Organization [facility] Address [address] [place] [address] Care Team Providers Name Role Phone David Choudhury MD Primary Care Provider [phone] Reason for Referral Procedure/Equipment (Routine) - Incomplete Specialty Diagnoses / Procedures Referred By Contact Refer red To Contact Diagnoses Malignant neoplasm of lower lobe of right lung (HRC) Kian Winters, JUANCARLOS Procedures CT Chest WO IV Cont [address] [place], [place] [address] Referral ID Status Reason Start Date Expiration Date Visits V isits Requested Authorized [id number] Incomplete 07/09/2021 10/08/2022 1 1 Reason for Visit Reason Comments Follow-up Encounter Details Date Type Department Care Team Description 07/09/2021 Formerly [facility], 1928–1983 Kian Winters, Malignant neoplasm Encounter [facility] JUANCARLOS of [facility] Oncology [address] [place] right lung (HRC) [address] [facility] (Primary Dx) [place] [address] [id number] Social History Tobacco Use Types Packs/Day Years [...] at Date Recorded Female 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 guaiFENesin (MUCINEX) TAKE [...] encounter Progress Notes Kian Winters MBBS - 07/09/2021 1:30 PM CDT NAME: MARII [facility] VISIT DATE OF VISIT: 07/09/2021 : 1970 REASON FOR VISIT: Adenocarcinoma of the right lung, AJCC prognostic group IA3, pT1c pN0 cM0 HISTORY OF PRESENTING ILLNESS: Ms. Marii José is a pleasant 51-year-old female with right-sided lung cancer, being evaluated in Oncology Clinic. Please refer to my consultation note from 03/01/2021nd my most recent follow-up note from 04/17/2021 for details regarding her history and presentation. 1. She had been in her usual state of health, but on 02/02/2021, she developed a syncopal episode while obtaining a pedicure. Shortly prior to the pedicure she had donated blood, but she had been donating blood periodically for several years and had never experienced a similar episode previously. She was evaluated at the [facility] Emergency Room. She was noted to have [...] nodes) and station 7 subcarinal lymph nodes. The AJCC prognostic stage group was IA3, pT1c,pN0,cM0, and adjuvant chemotherapy was not recommended but a plan was made to continue with clinical and radiologic surveillance. Interim history: At today's visit, she is accompanied by her . She has recovered nicely from surgery. Continues to experience occasional twinges of discomfort at the surgical scar site, but thisis mild, she has not needed to use any pain medications. A couple of weeks ago she had developed a bit of a dry cough, had seen her PCP, this was attributed to a postnasal drip. No antibiotics were prescribed. She denies any fevers or infectious type symptoms. Denies any abdominal pain or diarrhea. Noheadache or bone pain. In general her appetite is good. 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 PAST HISTORY: 1. Migraines. 2. Ureteric stone, status post lithotripsy. 3. Appendectomy in December 2020. MEDICATIONS: Reviewed. SOCIAL HISTORY: Does not smoke and has never smoked. Lives with in [place]. They have 3 children. 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 FAMILY HISTORY: Her father had developed non-Hodgkin lymphoma. Her paternal uncle who was a smoker had developed lung cancer. PHYSICAL EXAM: Pleasant 51-year-old female, appears well, does not appear to be in acute medical distress. Blood pressure 106/66, pulse 61, temperature 98.1 ??F (36.7 ??C), temperature source Oral, weight 160 lb (72.6 kg). HEENT: No scleral icterus. No oral thrush. LYMPH: No palpable lymph nodes in the neck or axilla. HEART: Regular rate and rhythm, no rub or gallop. LUNGS: Bilateral vesicular breath sounds, no rales. ABDOMEN: No abdominal tenderness, no hepatosplenomegaly. EXTREMITIES: No leg edema. NEURO: She is alert and oriented. LABS: Reviewed in [facility]. IMAGING: CT chest from 06/29/21: IMPRESSION: Interval postoperative changes to the right lung. No evidence for recurrent/metastatic disease in the chest. I personally reviewed the CT images. ASSESSMENT AND PLAN: This is a 51-year-old [...] AJCC prognostic stage group was IA3, pT1c,pN0,cM0. Adjuvant chemotherapy was not recommended, and a plan was made to continue with clinical and radiologic surveillance. I had a lengthy discussion with her and her at today's visit. We did review her recent CT chest findings. There is no evidence of disease recurrence. She has some right lower lobe postoperativechanges, and some very small pulmonary nodules which are unchanged compared to her prior CT scan. I once again reviewed standardized guidelines for follow-up, including the NCCN guidelines. I did review that I am very optimistic about a favorable prognosis, but we will need to continue to monitor her clinically and radiologically. As per standardized guidelines I would recommend obtaining a CT chest at least every 6 months for the 1st couple of years and then annually thereafter. We will schedule her next CT scan of the chest in 6 months time. At today's visit I also educated her about some of the signs and symptoms she should watch for and report. 2. She will continue to follow with her PCP for her routine healthcare maintenance. She will be undergoing a routine screening colonoscopy later this year. All these recommendations were reviewed at length. Extensive counseling was provided. documented in this encounter Plan of Treatment Scheduled Orders Name Type Priority Associated Diagnoses Order S chedule CT Chest WO IV Cont Imaging New Routine Malignant neoplasm of Expected: 07/09/2021 lower lobe of right lung (Ap proximate), (HRC) Expires: 2022 documented as of this encounter Visit Diagnoses Diagnosis Malignant neoplasm of lower lobe of righ t lung (HRC) - Primary documented in this encounter Care Teams Package Worker Relationship Specialty Start Date End Date David Choudhury MD PCP - General Family Practice 03/16/21 [address] [place] [address] documented as of this encounter
--- OUTSIDE RECORDS SUMMARY | 2021-11-09 06:14 | XMS_ITS | Encounter Summary ---
:1970 Author Organization [facility] Address [address], [place] [address] Care Team Providers Name Role Phone David Choudhury MD Primary Care Provider [phone] Reason for Referral Procedure/Equipment (Routine) - Incomplete Specialty Diagnoses / Procedures Referred By Contact Refer red To Contact Diagnoses Diagnosis unknown Pedro Hull MD Procedures XR Portable Chest 1 View [address] [place], [place] [address] Referral ID Status Reason Start Date Expiration Date Visits V isits Requested Authorized [id number] Incomplete 03/16/2021 06/15/2022 1 1 ING LOT ATTENDANT AND CASHIER Reason for Visit Auth/Cert Specialty Diagnoses / Procedures Referred By Contact Refer red To Contact Diagnoses Malignant neoplasm of lower lobe of right lung (HRC) Procedures THORACOSCOPY/THORACOTOMY/LUNG RESECTION Referral ID Status Reason Start Date Expiration Date Visits Requ ested Visits Authorized [id number] 1 1 Encounter Details Date Type Department Care Team Description 03/16/2021 Hospital Encounter [facility] Pedro Hull, Diagnosis unknown 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 FLUoxetine (PROZAC) 10 Take 10 mg by mouth 0 11/0 10/2020 MG capsule daily. guaiFENesin 1200 MG Take 1,200 mg by 14 Tablet 0 03/21/2021 mouth two times a day. hydrocortisone 2.5 % Apply 1 Application 30 0 2006 cream topically 2 times daily as needed. hydrOXYzine pamoate TAKE ONE CAPSULE BY 0 021 (VISTARIL) 25 MG MOUTH EVERY 6 HOURS capsule NEEDED LORazepam (ATIVAN) 0.5 TAKE ONE TABLET BY [...] MOUTH EVERY 6 disintegrating tablet HOURS NEEDED SUMAtriptan (IMITREX) Take 100 mg by mouth 18 3 05/18 50 MG tablet once as needed (Take 1 tablet by mouth once as needed.). topiramate (TOPAMAX) Take 1 tablet by 60 5 7 100 MG tablet mouth 2 times daily. LW Addl Instr:Indicated for: Headache acetaminophen (TYLENOL) Take 2 Tablets (1,000 100 Tablet 11 0 03/21/2021 03/21/2021 500 MG tablet mg) by mouth every 6 hours. Maximum acetaminophen dose is 4000 mg in 24 hours ibuprofen (MOTRIN) 400 Take 1 Tablet (400 100 Tablet 11 03/2103/21/2021 MG tablet mg) by mouth 4 times a day. oxyCODONE (ROXICODONE) Take 1 Tablet (5 mg) 10 Tablet 0 03/202103/21/2021 5 MG immediate release by mouth every 6 tablet hours as needed for Pain (Severe Pain (pain score 8-10)). documented as of this encounter Plan of Treatment Not on filedocumented as of this encounter Procedures Procedure Name Priority Date/Time Associated Diagnosis Comme nts XR PORTABLE CHEST 1 Routine 03/16/2021 6:09 PM Diagnosis unkno wn Results for this VIEW PARKING LOT ATTENDANT AND CASHIER procedure are i n the results section. documented in this encounter Results XR Portable Chest 1 View (03/16/2021 6:09 PM PARKING LOT ATTENDANT AND CASHIER) Anatomical Region Laterality Modality Chest, Lung Radiographic Imaging Specimen (Source) Anatomical Collection Method Collection Time Re ceived Time Location / / Volume Laterality 03/16/2021 5:45 PM PARKING LOT ATTENDANT AND CASHIER Impressions 03/16/2021 6:13 PM PARKING LOT ATTENDANT AND CASHIER COMPARISON: ??02/22/2021. FINDINGS: ??One view was obtained. There is an endotracheal tube in place the tip in the left mainstem bronchus. There are two right-sided chest tubes in place. New moderate left pleural effusion. New m ild left lower lobe atelectasis versus i nfiltrate. No pneumothorax. Procedure Note Danilo Paulino MD - 03/16/2021 IMPRESSION COMPARISON: 02/22/2021. FINDINGS: One view was obtained. There i s an endotracheal tube in place the tip in the left mainstem bronchus. There are two right-sided chest tubes in place. New moderate left pleural effusion. New mild left lower lobe atelectasis versus infiltrate. No p neumothorax. Pedro Hull MD RAD PORTABLE documented in this encounter Visit Diagnoses Diagnosis Diagnosis unknown Other unknown and unspecified cause of m orbidity or mortality documented in this encounter Care Teams Dimmer Board Operator Relationship Specialty Start Date End Date David Choudhury MD PCP - General [facility] Practice 03/16/21 [address] [place], [place] [id number] documented as of this encounter
--- OUTSIDE RECORDS SUMMARY | 2021-11-09 06:14 | XMS_ITS | Encounter Summary ---
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 documented in this encounter Results LABORATORY REPORT (03/23/2021) Narrative This result has an attachment that is no t available. Interface Provider DUMMY/OTHER/AR documented in this encounter Visit Diagnoses Not on filedocumented in this encounter Care Teams Slurry Control Tender Relationship Specialty Start Date End Date David Choudhury MD PCP - General Family Practice 03/16/21 [address] [place] [id number] documented as of this encounter
--- OUTSIDE RECORDS SUMMARY | 2021-11-09 06:14 | XMS_ITS | Encounter Summary ---
:1970 Author [facility] Address [address], [place] [address] Care Team Providers Name Role Phone David Choudhury MD Primary Care Provider [phone] Encounter Details Date Type Department Care Team Description 03/21/2021 Orders Only [facility] 5E Oncology Med Nathaly Gonzalez PA-C Surg [address] 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
--- OUTSIDE RECORDS SUMMARY | 2021-11-09 06:14 | XMS_ITS | Encounter Summary ---
:1970 Author Organization [facility] Address [address] [address] Care Team Providers Name Role Phone David Choudhury MD Primary Care Provider [phone] Reason for Visit (Routine) - Incomplete Specialty Diagnoses / Procedures Referred By Contact Refer red To Contact Procedures Tommy Amador MD Anesthesia Guided Block [address] [place], [place] [address] Referral ID Status Reason Start Date Expiration Date Visits V isits Requested Authorized [id number] Incomplete 03/16/2021 06/15/2022 1 1 Encounter Details Date Type Department Care Team Description 03/16/2021 Ancillary Procedure Radiology [facility] [address] [place] [address] Social History Tobacco Use Types Packs/Day Years [...] at Date Recorded Female 02/21/2021 8:36 PM HEEL CUTTER documented as of this encounter Plan of Treatment Not on filedocumented as of this encounter Procedures Procedure Name Priority Date/Time Associated Comments Diagnosis US ANESTHESIA GUIDED STAT 03/16/2021 10:06 AM Results for this BLOCK HEEL CUTTER procedure are i n the results section. documented in this encounter Results US Anesthesia Guided Block (03/16/2021 10:06 AM HEEL CUTTER) Anatomical Region Laterality Modality Ultrasound Specimen (Source) Anatomical Location Collection Method / Collectio n Time Received Time / Laterality Volume Narrative 03/16/2021 10:06 AM HEEL CUTTER If an Anesthesia block was performed please see the Anesthesia encounter for documentation. ??This procedure was performed and interpreted by the performing provider. ?? Tommy Amador MD [facility] documented in this encounter Visit Diagnoses Not on filedocumented in this encounter Care Teams Assembler Equipment Relationship Specialty Start Date End Date David Choudhury MD PCP - General Family Practice 03/16/21 [address] [facility] [place] [id number] documented as of this encounter
--- OUTSIDE RECORDS SUMMARY | 2021-11-09 06:14 | XMS_ITS | Encounter Summary ---
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 documented in this encounter Results EKG (03/16/2021) Narrative This result has an attachment that is no t available. Interface Provider EKG documented in this encounter Visit Diagnoses Not on filedocumented in this encounter Care Teams Advanced Solutions Architect Relationship Specialty Start Date End Date David Choudhury MD PCP - General Family Practice 03/16/21 [address] [place] [address] documented as of this encounter
--- OUTSIDE RECORDS SUMMARY | 2021-11-09 06:14 | XMS_ITS | Encounter Summary ---
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 Jenny Schaeffer, RN - 09/13/2021 11:[address] Ovalle, please see note below and advise. Thank you! Hiral Ford - 09/13/2021 9:29 AM CDT Patient of Dr. Ovalle last seen in 01/2021 and calling to schedule a f/u appt. Pt stated she had a +COVID test on 09/03 and still having cough & congestion. Currently have pt scheduled w/ Dr. Ovalle on 09/21. Please advise if additional testing is needed. Thanks. documented in this encounter Plan of Treatment Not on filedocumented as of this encounter Visit Diagnoses Not on filedocumented in this encounter Care Teams Search Engine Marketing Manager Relationship Specialty Start Date End Date David Choudhury MD PCP - General Family Practice 03/16/[address] [place] [address] documented as of this encounter
--- OUTSIDE RECORDS SUMMARY | 2021-11-09 06:14 | XMS_ITS | Clinical Summary ---
:1970 Author Organization [facility] [place] [address] Care Team Providers Name Role Phone [facility] Unavailable Unavailable Pcp, No Primary Care Provider Unavailable Allergies Active Allergy Reactions Severity Noted Date Comments Amoxicillin-Pot Clavulanate Diarrhea 04/23/2017 Doxycycline Other - Describe In Comment 04/23/2017 Sunburn Field, Vomiting Medications Medication Sig Dispensed Refills Start Date End Date Status topiramate (TOPAMAX) Take 1 tablet by 0 04/23/2017 Active 100 mg tablet mouth 2 times daily. SUMAtriptan (IMITREX) Take 1 tablet by 0 04/23/2017 Active 100 mg tablet mouth 2 times daily if needed for Migraine. Give at minimum 2hrs apart. Max Dose: 200mg per 24hrs. Active Problems Not on file Immunizations Name Administration Dates Next Due Hepatitis B (Adult) 07/22/2007, 02/20/2007, 01/14/2007 Social History Tobacco Use Types Packs/Day Years Used Date Never Smoker Smokeless Tobacco: Never Used Tobacco Cessation: Counseling Given: Yes Sex Assigned at Date Recorded Not on file Obstetrics History Last Filed Vital Signs Vital Sign Reading Time Taken Comments Blood Pressure 110/72 04/23/2017 12:07 PM COUNTRY MANAGER Pulse 75 04/23/2017 12:07 PM COUNTRY MANAGER Temperature - - Respiratory Rate - - Oxygen Saturation 96% 04/23/2017 12:07 PM COUNTRY MANAGER Inhaled Oxygen Concentration - - Weight 78.6 kg (173 lb 4.8 oz) 04/23/2017 12:07 PM COUNTRY MANAGER Height - - Body Mass Index - - Plan of Treatment Health Maintenance Due Date Last Done Comments COVID-19 vaccine series (#1) 1970 Tdap 1981 Depression screening for age 12+ 1982 BMI (ht and wt on same day) for 1988 age 18+ Hepatitis C screening for age 0203/24/1988 18-79 Tetanus booster 1990 Colonoscopy through age 75 2015 Lipids for age 45-75 2015 Mammogram for age 45-75 2015 Zoster (shingles) series for age 0203/24/2020 50+ (1 of 2) Influenza for age 50-64 10/18/2021 Pap test for age 21-65 11/14/2022 11/15/2019, 11/15/2019, 07/06/2014, Additional history exists Results Not on filefrom Last 3 Months Insurance Payer Benefit Plan / Subscriber ID Effective Dates Phone Addre ss Type Group PREFERRED ONE PREFERRED [id number] 2016-Present [address] [place] [address] [employer] Other 02/18/2008 [facility] (Home) PAYABLE [phone] [id number] [employer] (Work) [place] [address] Care Teams Tin [employer]ler Hot Mill Relationship Specialty Start Date End Date Pcp, No PCP - General 04/23/17 . [facility] 03/26/17
--- OUTSIDE RECORDS SUMMARY | 2021-11-09 06:14 | XMS_ITS | Encounter Summary ---
:1970 Author [facility] Address [address] [address] Care Team Providers Name Role Phone David Choudhury MD Primary Care Provider [phone] Reason for Visit Procedure/Equipment (Routine) - Incomplete Specialty Diagnoses / Procedures Referred By Contact Refer red To Contact Diagnoses Malignant neoplasm of lower lobe of right lung (HRC) Pedro Hull MD Procedures XR Chest 1 View [address], [place] [address] Referral ID Status Reason Start Date Expiration Date Visits V isits Requested Authorized [id number] Incomplete 04/02/2021 07/02/2022 1 1 Encounter Details Date Type Department Care Team Description 04/02/2021 [facility] Pedro Hull, Maligna nt neoplasm Procedure X-Ray of lower lobe of [address] right lung (HRC) [facility] [phone] Social History Tobacco Use Types Packs/Day Years [...] at Date Recorded Female 02/21/2021 8:36 PM LUMP RECEIVER documented as of this encounter Plan of Treatment Not on filedocumented as of this encounter Procedures Procedure Name Priority Date/Time Associated Diagnosis Comme nts XR CHEST 1 VIEW Routine 04/02/2021 10:45 AM Malignant neoplasm of Results for this LUMP RECEIVER lower lobe of right procedur e are in lung (HRC) the results section. documented in this encounter Results XR Chest 1 View (04/02/2021 10:45 AM LUMP RECEIVER) Anatomical Region Laterality Modality Chest, Lung Digital Radiography Specimen (Source) Anatomical Collection Method Collection Time Re ceived Time Location / / Volume Laterality 04/02/2021 10:40 AM LUMP RECEIVER Impressions 04/02/2021 12:45 PM LUMP RECEIVER COMPARISON: ??03/20/2021. FINDINGS: ??One view was obtained. Since the prior study, two right-sided chest tubes have been removed. There is a persistent, small effusion. Volume loss demonstrated on the right and a surgical stapl e line noted at the right apex. Lungs ar e otherwise clear. Cardiac silhouette and pulmonary vasculature are within normal limits. There is no evidence of pneumothorax. Procedure Note Christina Michelle MD - 04/02/2021Formattin g of this note might be different from the original. IMPRESSION COMPARISON: 03/20/2021. FINDINGS: One view was obtained. Since t he prior study, two right-sided chest tubes have been removed. There is a persistent, small effusion. Volume loss demonstrated on the right and a surgical staple line noted at the right apex. Lungs are otherwise akhil r. Cardiac silhouette and pulmonary vasculature are within normal limits. There is no evidence of pneumothorax. Pedro Hull MD RAD GD documented in this encounter Visit Diagnoses Diagnosis Malignant neoplasm of lower lobe of righ t lung (HRC) documented in this encounter Care Teams Oracle Brm Developer Relationship Specialty Start Date End Date David Choudhury MD PCP - General Family Practice 03/16/21 [address] [place] [address] documented as of this encounter
--- OUTSIDE RECORDS SUMMARY | 2021-11-09 06:14 | XMS_ITS | Encounter Summary ---
:1970 Author Organization [facility] Address [address] [place] [address] Care Team Providers Name Role Phone David Choudhury MD Primary Care Provider [phone] Reason for Referral Procedure/Equipment (Routine) - Incomplete Specialty Diagnoses / Procedures Referred By Contact Refer red To Contact Diagnoses Lung mass Greyson Ovalle MD Procedures XR Chest 2 Views [address] [place], [place] [address] Referral ID Status Reason Start Date Expiration Date Visits V isits Requested Authorized [id number] Incomplete 09/17/2021 12/17/2022 1 1 Reason for Visit Reason Comments Follow-up Encounter Details Date Type Department Care Team Description 09/17/2021 Office Visit Specialty [facility] [address] Greyson Ovalle, Lung mass (Primary Pulmonary Medicine MD Dx) [address] 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 - sorry to hear you had covid, but glad you're doing better - I think you had the Paxlovid rebound, but improving - lungs sound great today - we'll check an x-ray to be sure - be in touch if you don't continue to get better! documented in this encounter Progress Notes Greyson Ovalle MD - 09/17/2021 8:30 AM CDT PULMONARY MEDICINE FOLLOW UP Chief Concern: h/o recently resected stage I lung adenocarcinoma, recent covid infection SUBJECTIVE / INTERVAL EVENTS: Fifi Ranjith is a very pleasant 51 year old woman seen earlier this year with an incidentally-noted large pulmonary nodule that 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 Hull, followed in Oncology by Dr. Alvarez. She has been doing well from this perspective, but when her son moved back home for his Social Work agriculture internship from college, she got covid-19 on September 03. She got Paxlovid the day of her diagnosis (exactly two weeks ago) and immediately felt much much better, but about 10 days later, felt poorly again, primarily with frequent productive cough. She actually says this has now improved again, and hasn't really had a cough today, though it is still early. She has been taking mucinex pm which is helping. A little OOB earlier on. Also some sinus congestion / stuffiness. Review of Systems Pertinent items are noted in HPI. OBJECTIVE: Vitals: Pulse 82, height 5' (1.524 m), weight 160 lb (72.6 kg), SpO2 98 %. @IOBRIEF@ Physical Exam: General Appearance: Alert, cooperative, no distress, appears stated age Lungs: CTAB Heart: Regular rate and rhythm Assessment and Plan: Fifi Kasper is very pleasant 51 year old woman with recent diagnosis of adenocarcinoma stage I s/p RLL lobectomy, followed by Dr. Winters for this, doing well (and is a never-smoker) until covid 19 two weeks ago. I think she had rebound with Paxlovid. She seems to be doing better. Given her recent lung history, understandably, she was a little concerned, also has understandable concerns related to long covid. Seems to be improving, thankfully. Given her productive cough, will get a CXR today to be sure there ar e no superimposed problems such as pneumonia, but I think this will resolve with time. Also discussed things like ICS, but I think this probably wouldn't help much or at all, so would continue her current symptomatic management, and call if not continuing to improve. Thankfully, her surgery went well, and she has good oncology support and hopefully this will not recur. Praneeth Ovalle MD Pulmonary, Critical Care TT 30 documented in this encounter Plan of Treatment Not on filedocumented as of this encounter Results XR Chest 2 Views (09/17/2021 9:22 AM CDT) Anatomical Region Laterality Modality Chest, Lung Digital Radiography Specimen (Source) Anatomical Collection Method Collection Time Re ceived Time Location / / Volume Laterality 09/17/2021 9:14 AM CDT Impressions 09/17/2021 11:42 AM CDT COMPARISON: ??CT of the chest dated 06/29/2021. Chest x-ray dated 04/02/2021. FINDINGS: ??2 views. Postoperative tarango e in the right lung. Cardiac silhouette is within normal limits. No pulmonary edema or pleural effusion. No acute airspace consolidation. No pleural edge to suggest pneumothorax. Procedure Note Armen Osman MD - 09/17/2021Format ting of this note might be different from the original. IMPRESSION COMPARISON: CT of the chest dated 022. Chest x-ray dated 04/02/2021. FINDINGS: 2 views. Postoperative change in the right lung. Cardiac silhouette is within normal limits. No pulmonary edema or pleural effusion. No acute airspace consolidation. No pleural edge to suggest pneumothorax. Greyson Ovalle MD RAD GD documented in this encounter Visit Diagnoses Diagnosis Lung mass - Primary Swelling, mass, or lump in chest Lung mass Swelling, mass, or lump in chest documented in this encounter Care Teams Engagement Engineer Relationship Specialty Start Date End Date David Choudhury MD PCP - General Family Practice 03/16/21 [address] [place] [address] documented as of this encounter
--- OUTSIDE RECORDS SUMMARY | 2021-11-09 06:14 | XMS_ITS | Encounter Summary ---
:1970 Author Organization [facility] Address [address] [place] [address] Care Team Providers Name Role Phone David Choudhury MD Primary Care Provider [phone] Reason for Visit Reason Comments COVID Questions COUGH Encounter Details Date Type Department Care Team Description 09/17/2021 Nurse Triage Careline Unassigned, COVID Questions; COUGH [address] 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 Verified patient identity: Yes Situation/Background (brief explanation of current symptoms/situation): pt tested positive with covid on 09/03/2021. Pt feels better today than she has in the past few weeks. Pt started paxlovid on 09/03/2021. Pt went back to work the following 09/10/2021, had a negative test that day. Was positive again on 09/13/2021- started to cough and not feeling well on 09/12/2021. With paxlovid rebound, per CDC would recommend 5 additional days of isolation. That 5th day would be today, 09/17/2021. Pt is on her way to her pulmonary appt. Pt really just made the appt to be assessed following having covid. Reviewed with patient pertinent medical history (as it related to the call): Yes - lungpt did have a1/3 of right lung removed. Reviewed with patient pertinent medications (as they relate to call): No Reviewed with patient pertinent allergies (as they relate to call): No Reason for Disposition [1] HIGH RISK for severe COVID complications (e.g., weak immune system, age > 64 years, obesity with BMI > 25, , chronic lung disease or other chronic medical condition) AND [2] COVID symptoms (e.g., cough, fever) (Exceptions: Already seen by PCP and no new or worsening symptoms.) Careline RN will not make a call, as office is just opening and pt is already en route. Pt will speak with office staff regarding situation and symptoms. Protocols used: Coronavirus (COVID-19) Diagnosed or [id number] Plan: pt is en route to her pulmonary appt. This RN shared the information regarding CDC and covid rebound after paxlovid. Pt will go to appt, and be upfront about situation and see what clinic says. Advised patient/caller to call back CareLine if there are further questions or concerns or to be seen if situation becomes emergent. The CareLine is available 09/09. Josy Jalloh RN Careline 7:57 AM 09/17/2021 Summer Wood - 09/17/2021 7:37 AM CDT Verified patient identity using three identifiers: Yes Caller's relationship to patient: Self Do you get your primary care at a HP or PN clinic: PN Are you calling about a related concern: No Do you see a PN specialist for the reason you are calling? Yes HP Select Member: No Are you calling about a positive COVID result: No Symptoms Describe the reason for call/symptoms (include location and duration if applicable): Patient has 8:30am appointment today. Patient states they are still testing positive for covid, have been for a couple weeks. Patient states they have ongoing cough. Plan:Caller transferred directly to CareLine nurse. documented in this encounter Plan of Treatment Not on filedocumented as of this encounter Visit Diagnoses Not on filedocumented in this encounter Care Teams Graphic Arts Instructor Relationship Specialty Start Date End Date David Choudhury MD PCP - General Family Practice 03/16/21 [address] [place] [address] documented as of this encounter
--- OUTSIDE RECORDS SUMMARY | 2021-11-09 06:14 | XMS_ITS | Encounter Summary ---
:1970 Author Organization [facility] Address [address], [place] [address] Care Team Providers Name Role Phone David Choudhury MD Primary Care Provider [phone] Reason for Visit Procedure/Equipment (Routine) - Incomplete Specialty Diagnoses / Procedures Referred By Contact Refer red To Contact Diagnoses Malignant neoplasm of lower lobe of right lung (HRC) Kian Winters, MBBS Procedures CT Chest WO IV Cont [address] [place], [place] [address] Referral ID Status Reason Start Date Expiration Date Visits V isits Requested Authorized [id number] Incomplete 04/17/2021 07/17/2022 1 1 Encounter Details Date Type Department Care Team Description 06/29/[address] Scan Kian Winters, Malignant neoplasm Procedure [address] [place] MBBS of lower lobe of Drive [address] [facility] right lung (HRC) [place] [address] [place], [place] [phone] [address] Social History Tobacco Use Types Packs/Day Years [...] at Date Recorded Female 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 documented in this encounter Results CT Chest WO IV [...] the original. IMPRESSION COMPARISON: PET/CT 02/28/2021, outside ch est CT 02/02/2021. TECHNIQUE: Noncontrast images were [...] for recurrent/metastatic disease in the chest. Kian NUNEZBS RAD CT documented in this encounter Visit Diagnoses Diagnosis Malignant neoplasm of lower lobe of righ t lung (HRC) documented in this encounter Care Teams Per Diem Physical Therapist Relationship Specialty Start Date End Date David Choudhury MD PCP - General Family Practice 03/16/21 [address] [place] [address] documented as of this encounter
--- OUTSIDE RECORDS SUMMARY | 2021-11-09 06:14 | XMS_ITS | Encounter Summary ---
:1970 [facility] Address [address], [place] [address] Care Team Providers Name Role Phone David Choudhury MD Primary Care Provider [phone] Reason for Referral Procedure/Equipment (Routine) - Incomplete Specialty Diagnoses / Procedures Referred By Contact Refer red To Contact Diagnoses Malignant neoplasm of lower lobe of right lung (HRC) Pedro Hull MD Procedures XR Chest [address] [place], [place] [address] Referral ID Status Reason Start Date Expiration Date Visits V isits Requested Authorized [id number] Incomplete 04/02/2021 07/02/2022 1 1 NISTRATOR PESTICIDE Reason for Visit Reason Comments Post-Op Check Encounter Details Date Type Department Care Team Description 04/02/2021 Office Visit [facility] Pedro Hull, Malignant neoplasm Cardiothoracic Surge ry MD of lower lobe of [address] [facility]. [address] right lung (HRC) [place], [place] [address] (Primary Dx) [address] [place], [place] [phone] [address] Social History Tobacco Use Types Packs/Day Years [...] at Date Recorded Female 02/21/2021 8:36 PM ADMINISTRATOR PESTICIDE documented as of this encounter Last Filed Vital Signs Vital Sign Reading Time Taken Comments Blood Pressure 97/51 04/02/2021 11:18 AM ADMINISTRATOR PESTICIDE Pulse 63 04/02/2021 11:18 AM ADMINISTRATOR PESTICIDE Temperature - - Respiratory Rate - - Oxygen Saturation - - Inhaled Oxygen Concentration - - Weight 72.6 kg (160 lb) 04/02/2021 11:18 AM ADMINISTRATOR PESTICIDE Height 149.9 cm (4' 11) 04/02/2021 11:18 AM ADMINISTRATOR PESTICIDE Body Mass Index 32.32 04/02/2021 11:18 AM ADMINISTRATOR PESTICIDE documented in this encounter Patient Instructions Patient InstructionsAyse Malone LPN - 04/02/2021 11:30 AM CST Thank you for choosing Cardiothoracic Surgery at [facility]! For follow-up medical questions for the nurse, please call Yennifer at [phone]. For after hours emergencies, follow the instructions to be transferred to the conductor/brakeman provider. For appointments and scheduling, please call [phone]. For after business hours or weekend concerns needing immediate attention, please dial [phone] and the tongue and groove machine operator will assist you. For questions regarding billing, please contact Patient [employer] at [phone]. NISTRATOR PESTICIDE documented in this encounter Progress Notes Pedro Hull MD - 04/02/2021 11:30 AM CST No complaints. Incisions have been aching. Some neuropathic pain. AFVSS. RRR. CTA. Wounds well healed. 2 sutures removed at chest tube sites. 52 F s/p R minimally-invasive VATS Lower lobectomy. -no activity restrictions. -Path discussed with patient. pT1C N0 M0, s/p R0 resection -She will follow up with oncology for longitudinal surveillance. -no further follow up is needed with me. She may call any time for further questions or concerns. NISTRATOR PESTICIDE documented in this encounter Plan of Treatment Not on filedocumented as of this encounter Results XR Chest 1 View (04/02/2021 10:45 AM ADMINISTRATOR PESTICIDE) Anatomical Region Laterality Modality Chest, Lung Digital Radiography Specimen (Source) Anatomical Collection Method Collection Time Re ceived Time Location / / Volume Laterality 04/02/2021 10:40 AM ADMINISTRATOR PESTICIDE Impressions 04/02/2021 12:45 PM ADMINISTRATOR PESTICIDE COMPARISON: ??03/20/2021. FINDINGS: ??One view was obtained. [...] (HRC) documented in this encounter Care Teams Cardiac Nurse Practitioner Relationship Specialty Start Date End Date David Choudhury MD PCP - General Family Practice 03/16/[address] [place] [address] documented as of this encounter
--- OUTSIDE RECORDS SUMMARY | 2021-11-09 06:14 | XMS_ITS | Clinical Summary ---
:1970 Author Organization [facility] Address [address] [place] [address] Care Team Providers Name Role Phone David Choudhury MD Primary Care Provider [phone] Source Comments You are receiving this document as you are listed as the primary care provider,follow-up provider, or the patient has been referred to you for consultation.This is in compliance with the Medicare and Medicaid EHR Incentive Program,which states Providers who transition their patient to another setting of careor provider of care or refers their patient to another provider of care shouldprovide summarycare record for each transition of care or referral. [employer] Allergies Active Allergy Reactions Severity Noted Date Comments Amoxicillin-Pot Diarrhea 04/23/2017 Clavulanate Doxycycline Other, see comments, 04/23/2017 Sunburn Gastrointestinal Metronidazole 03/18/2005 PN: LW Reactio n: GI Upset Other 06/13/2003 PN: LW Other1: -band aid adhesive / redness Medications Medication Sig Dispensed Refills Start Date End Date Status SUMAtriptan Take 100 mg by 18 3 05/30/2003 Ac tive (IMITREX) 50 MG mouth once as tablet needed (Take 1 tablet by mouth once as needed.). hydrocortisone 2.5 % Apply 1 Application 30 0 7 Active cream topically 2 times daily as needed. topiramate (TOPAMAX) Take 1 tablet by 60 5 04/18/2006 Active 100 MG tablet mouth 2 times daily. LW Addl Instr:Indicated for: Headache estradiol (ESTRACE) Take 1 mg by mouth 0 12/08/2020 Active 1 MG tablet daily. FLUoxetine (PROZAC) Take 10 mg by mouth 0 12/26/2020 Active 10 MG capsule daily. hydrOXYzine pamoate TAKE ONE CAPSULE BY 0 02/06/2021 Active (VISTARIL) 25 MG MOUTH EVERY 6 HOURS capsule NEEDED LORazepam (ATIVAN) TAKE ONE TABLET BY 0 02/05/2021 Active 0.5 MG tablet MOUTH DIRECTED NEEDED metoprolol succinate Take 50 mg by mouth 0 1 Active (TOPROL XL) 100 MG daily. Patient is 24 hour release now taking 50 mg tablet once per day metoprolol succinate Take 50 mg by mouth 0 1 Active (TOPROL XL) 50 MG 24 daily. hour release tablet ondansetron DISSOLVE ONE TABLET 0 11/10/2020 Active (ZOFRAN-ODT) 4 MG BY MOUTH EVERY 6 disintegrating HOURS NEEDED tablet guaiFENesin 1200 MG Take 1,200 mg by 14 Tablet 0 03/21/2021 Active mouth two times a day. ibuprofen (MOTRIN) TAKE 1 TABLET (400 100 Tablet 11 03/21/2021 Active 400 MG tablet MG) BY MOUTH 4 3 TIMES A DAY. acetaminophen TAKE 2 TABLETS 100 Tablet 11 03/21/2021 Active (TYLENOL) 500 MG (1,000 MG) BY MOUTH 3 tablet EVERY 6 HOURS. MAXIMUM ACETAMINOPHEN DOSE IS 4000 MG IN 24 HOURS guaiFENesin TAKE 2 TABLETS 28 Tablet 0 03/21/2021 Ac tive (MUCINEX) 600 MG 12 (1,200 MG) BY MOUTH 3 hour release tablet TWO TIMES A DAY. oxyCODONE TAKE 1 TABLET (5 10 Tablet 0 03/21/2021 Ac tive (ROXICODONE) 5 MG MG) BY MOUTH EVERY 3 immediate release 6 HOURS NEEDED tablet FOR SEVERE PAIN (PAIN SCORE 8-10) Active Problems Problem Noted Date Malignant neoplasm of lower lobe of right lung 022 Overview: Added automatically from request for maria g sood [id number] Impaired glucose tolerance test 03/07/2004 Overview: Glucose Intolerance (Impaired Tolerance) Contact dermatitis and eczema 03/07/2004 Overview: Eczema Absence of menstruation 03/07/2004 Overview: LW Modifier: on ocp ; Amenorrhea Chronic Anovulatory Calculus of ureter 03/07/2004 Overview: Ureterolithiasis Impaired glucose tolerance test 03/07/2004 Overview: Glucose Intolerance (Impaired Tolerance) Resolved Problems Problem Noted Date Resolved Date Migraine 03/07/2004 04/12/2005 Overview: Migraine NOS Encounters Date Type Specialty Care Team Description 09/17/2021 Ancillary Procedure Radiology PN Greyson Ovalle L francine rachael CASTRO 09/17/2021 Office Visit Pulmonary Greyson Ovalle, Lung mas s (Primary Dx) 09/17/2021 Nurse Triage Careline Unassigned, COVID Questions ; COUGH Provider 09/13/2021 Telephone Pulmonary Greyson Ovalle, Follow-u p from Last 3 Months Immunizations Name Administration Dates Next Due Flu Vac Preserv Free (3+yrs) 11/11/2009, 10/20/2008, 007, 11/20/2005, 12/25/2004, 01/24/2004 Td 03/18/2005, 02/17/1996 Family History Relation Name Status Comments Paternal Uncle Other lung cancer Social History Tobacco Use Types Packs/Day Years [...] at Date Recorded Female 02/21/2021 8:36 PM MANAGER USER EXPERIENCE Last Filed Vital Signs Vital Sign Reading Time Taken Comments Blood Pressure 106/66 07/09/2021 1:32 PM CDT Pulse 82 09/17/2021 9:05 AM CDT Temperature 36.7 ??C (98.1 ??F) 07/09/2021 1:32 PM CDT Respiratory Rate 17 03/21/2021 9:59 AM MANAGER USER EXPERIENCE Oxygen Saturation 98% 09/17/2021 9:05 AM CDT Inhaled Oxygen Concentration - - Weight 72.6 kg (160 lb) 09/17/2021 9:05 AM CDT Height 152.4 cm (5') 09/17/2021 9:05 AM CDT Body Mass Index 31.25 09/17/2021 9:05 AM CDT Plan of Treatment Health Maintenance Due Date Last Done Comments Colon Cancer Screening Plan 1970 Due Hep C Screening (Preventive 1970 Services) HepB (1) 1970 Mammogram 1970 COVID-19 Vaccine (#1) 1970 HIV Screening (Preventive 1986 Services) Adult Preventive Visit 1988 Cervical Cancer Screening 04/01/2006 03/31/2006, 03/18/2005 , Due 03/07/2004, Additional history exists Cholesterol 2015 03/31/2006, 03/18/2005, 01/05/2003 Zoster/Shingles (1 of 2) 2020 Influenza (#1) 2021 11/15/2020, 11/24/2019, 09/30/2018, Additional history exists DTaP/Tdap/Td (3 - Tdap) 10/26/2028 10/26/2018, 11/10/2013, 03/18/2005, Additional history exists HepA Aged Out 10/03/2011, 03/27/2011 No longer eligible based on patient 's age to complete this topic Hib Aged Out No longer eligib le based on patient 's age to complete this topic IPV (Polio) Aged Out No longer eligib le based on patient 's age to complete this topic MCV4 Aged Out No longer eligib le based on patient 's age to complete this topic Pneumococcal Aged Out No longer eligib le based on patient 's age to complete this topic Procedures Procedure Name Priority Date/Time Associated Diagnosis Comme nts XR CHEST 2 VIEWS Routine 09/17/2021 9:22 AM Lung mass Resul ts for this CDT procedure are i n the results section. from Last 3 Months Results XR Chest 2 Views (09/17/2021 9:22 [...] suggest pneumothorax. Greyson Ovalle MD RAD GD from Last 3 Months Insurance Payer Benefit Plan / Subscriber ID Effective Phone Address T e Group Dates PREFERREDONE PREFERREDONE [id number] 2019-Pres [phone] OPEN ACCESS ent [id number] [place] [phone] Marii José Personal/Famil Self 1970 [id number] (Home) [place] [address] MARII JOSÉ Personal/Famil 1970 [phone] (Home) [place] [address] Abdoulaye José Personal/Famil Self 1970 [phone] (Home) [address] [phone] [address] (Work) [id number] MARII JOSÉ Personal/Famil y Advance Directives Latest Code Status on File Code Status Date Activated Date Inactivated Comments Full Code 03/16/2021 8:09 PM 03/21/2021 4:25 PM Full code in effect for 30 days Care Teams Slitter And Rewinder Relationship Specialty Start Date End Date David Choudhury MD PCP - General Family Practice 03/16/[address] [place] [address]
--- OUTSIDE RECORDS SUMMARY | 2021-11-09 06:14 | XMS_ITS | Encounter Summary ---
:1970 Author [facility] Address [address] [place] [address] Care Team Providers Name Role Phone David Choudhury MD Primary Care Provider [phone] Reason for Visit Procedure/Equipment (Routine) - Incomplete Specialty Diagnoses / Procedures Referred By Contact Refer red To Contact Diagnoses Lung mass Greyson Ovalle MD Procedures XR Chest 2 Views [address] [place], [place] [address] Referral ID Status Reason Start Date Expiration Date Visits V isits Requested Authorized [id number] Incomplete 09/17/2021 12/17/2022 1 1 Encounter Details Date Type Department Care Team Description 09/17/2021 Ancillary Procedure [facility] X-R ay Greyson Ovalle, Lung mass [address] MD [place], [place] [address] [facility] [address] [place], [place] [phone] (Wo rk) Social History Tobacco Use Types [...] at Date Recorded Female 02/21/2021 8:36 PM EDUCATIONAL TECHNOLOGY COORDINATOR documented as of this encounter Plan of Treatment Not on filedocumented as of this encounter Procedures Procedure Name Priority Date/Time Associated Diagnosis Comme nts XR CHEST 2 VIEWS Routine 09/17/2021 9:22 AM Lung mass Resul ts for this CDT procedure are i n the results section. documented in this encounter Results XR Chest 2 Views [...] this encounter Visit Diagnoses Diagnosis Lung mass Swelling, mass, or lump in chest documented in this encounter Care Teams City Superintendent Relationship Specialty Start Date End Date David Choudhury MD PCP - General Family Practice 03/16/21 [address], [place] [address] documented as of this encounter
--- OUTSIDE RECORDS SUMMARY | 2021-11-09 06:14 | XMS_ITS | Encounter Summary ---
:1970 Author Organization [facility] Address [address], [place] [address] Care Team Providers Name Role Phone David Choudhury MD Primary Care Provider [phone] Reason for Visit Reason Comments QUESTIONS, GENERAL Encounter Details Date Type Department Care Team Description 04/11/2021 Telephone [facility] Carol Abebe QUESTIONS, GENERAL Vascular & Vein Clin ic [address] [place] [address] Social History Tobacco Use Types Packs/Day Years [...] at Date Recorded Female 02/21/2021 8:36 PM CLOTH DESIZING RANGE OPERATOR CHIEF documented as of this encounter Nursing Notes Magui Abebe - 04/11/2021 11:43 AM CST Fifi Kasper would like a return to work letter which can be put in my chart for her to return to work on FridayApril 30. This would be the 6 week [place]. Please let me know when this done and I will call patient to inform her. H DESIZING RANGE OPERATOR CHIEF documented in this encounter Plan of Treatment Not on filedocumented as of this encounter Visit Diagnoses Not on filedocumented in this encounter Care Teams Counselor At Law Relationship Specialty Start Date End Date David Choudhury MD PCP - General Family Practice 03/16/[address] [place] [address] [address] documented as of this encounter
--- OUTSIDE RECORDS SUMMARY | 2021-11-09 06:15 | XMS_ITS | Encounter Summary ---
:1970 [facility] Address [address] [place] [address] Care Team Providers Name Role Phone Theresa Hardy MD Primary Care Provider Encounter Details Date Type Department Care Team Description 09/01/2006 PN Conversion Only [facility] [address] [place] [address] Social History Tobacco Use Types Packs/Day Years Used Date Smoking Tobacco: Never Assessed Food Insecurity Answer Date Recorded Within the past 12 months, you worried that your food would Never true 03/17/2021 run out before you got money to buy more. Within the past 12 months, the food you bought just didn't N ever true 03/17/2021 last and you didn't have money to get more. Sex Assigned at Date Recorded Female 02/21/2021 8:36 PM CONSULTING MANAGER documented as of this encounter Plan of Treatment Not on filedocumented as of this encounter Procedures Procedure Name Priority Date/Time Associated Diagnosis Comme nts US ABD RUQ ORGANS Routine 09/01/2006 9:06 AM Resu lts for this CDT procedure are i n the results section. documented in this encounter Results US Abd RUQ Organs (09/01/2006 9:06 AM CDT) Anatomical Region Laterality Modality Abdomen Other Specimen (Source) Anatomical Location Collection Method / Collectio n Time Received Time / Laterality Volume Impressions 09/01/2006 9:06 AM CDT : ??Normal liver and pancreas, as visualized, without gallbladder abnormalities. ??Probable 6- 7 mm right intrarenal calculus, but no obstruction. [id number]/marine Dictating KIRILL GASTELUM RADIOLOGIST Narrative 09/01/2006 9:06 AM CDT Pancreatic head and body, as visualized, appear normal, tail suboptimally seen for comment, presumed secondary to overlying bowel gas. ??Liver is normal without any focal abnormalities and no intrahepatic or extrahepatic biliary dil atation with the common bile duct measuring 3 mm in diameter. ??Gallb ladder is moderately well distended and shows no sludge, debris, o r calculi, and no wall thickening. ??Right kidney measures 9.7 cm in length and there is an echogenic focus in the midkidney raising question of calculus which would measure in the range of 6-7 mm. ?? Depending on the clinical situation, this could be correlated with IVP or CT scan using stone protocol. Procedure Note Kirill Dubon - 04/25/2016Formatting o f this note might be different from the original. Pancreatic head and body, as visualized, appear normal, tail suboptimally seen for comment, presumed secondary to overlying bowel gas. Liver is normal without any focal a bnormalities and no intrahepatic or extrahepatic biliary dil atation with the common bile duct measuring 3 mm in diameter. Gallbla dder is moderately well distended and shows no sludge, debris, o r calculi, and no wall thickening. Right kidney measures 9.7 cm in length and there is an echogenic focus in the midkidney raising question of calculus which would measure in the range of 6-7 mm. De pending on the clinical situation, this could be correlated with IVP or CT scan using stone protocol. IMPRESSION : Normal liver and pancreas, as visualiz ed, without gallbladder abnormalities. Probable 6-7 mm right intrarenal calculus, but no obstruction. [id number]/marine Dictating KIRILL GASTELUM RADIOLOGIST Liudmila ANDRE US documented in this encounter Visit Diagnoses Not on filedocumented in this encounter Care Teams Ballistician Relationship Specialty Start Date End Date Theresa Hardy MD PCP - General 05/22/10 03/15/[address] [place] [address] documented as of this encounter
--- OUTSIDE RECORDS SUMMARY | 2021-11-09 06:15 | XMS_ITS | Encounter Summary ---
:1970 Author [facility] Address [address], [place] [address] Care Team Providers Name Role Phone David Choudhury MD Primary Care Provider [phone] Reason for Visit Auth/Cert Specialty Diagnoses / Procedures Referred By Contact Refer red To Contact Diagnoses Malignant neoplasm of lower lobe of right lung (HRC) Procedures THORACOSCOPY/THORACOTOMY/LUNG RESECTION Referral ID Status Reason Start Date Expiration Date Visits Requ ested Visits Authorized [id number] 1 1 Encounter Details Date Type Department Care Team Description 03/16/2021 Anesthesia Event Cheondoism Operating French Bravo MD [address] [place] [address] Rosalie Acevedo APRN, CRNA [address] [place] [address] [place] [address] Anesthesia Record Procedure Summary Procedure Name Responsible Anesthesia Start Anesthesia Stop Time Anesthesiologist Time THORACOSCOPY, RIGHT Pedro Bravo MD 03/16/21 1347 03/16 1824 LOWER LOBE LUNG RESECTION, RIGHT UPPER LOBE WEDGE RESECTION (Right: Chest) Events Date Time Event Comment 03/16/2021 1347 1347 An Start 1350 An Start Data 1359 MD/DO Present 1359 An Induction 1402 An Intubation 1413 MD/DO Present 1418 MD/DO Present Positioned later al, ppp, neck neutral, ax roll 1425 An one lung vent 1450 MD/DO Present 1526 MD/DO Present 1607 MD/DO Present 1653 An Two-Lung Vent 1657 MD/DO Present 1707 An one lung vent 1713 MD/DO Present 1745 An Two-Lung Vent 1810 MD/DO Present 1815 An Extubation Purposeful movem ent with spontaneous respirations and adequate air exchange. Suctioned and ETT removed. Transfe rred with oxygen to recovery. 181 MD/DO Present 181 an stop data 182 Care Handoff Note I discussed wi th the receiving nurse and we: 1) Identified the p atient, lopez family member(s) or patient surrogat e 2) Identified the responsible practitioner 3) Reviewed the pertinent medical history 4) Discu ssed the surgical/procedure course 5) Reviewed intr a-op anesthesia management and issues during an esthesia 6) Set expectations for the post-procedu re period 7) Allowed opportunity for questions an d acknowledgement of understanding of report Electr onically signed by Yoanna Garcia APRN, FOREIGN DIPLOMAT 182 An Stop Care transferred . Name Total midazolam injection 2 mg/2 mL (VERSED) 2 mg fentaNYL injection (SUBLIMAZE) 50 mcg HYDROmorphone injection 1 mg/mL (DILAUDID) 1 mg lidocaine 1% PF injection (XYLOCAINE) 100 mg lidocaine 1% PF injection aka (XYLOCAINE) 3 mL lidocaine 1% PF injection aka (XYLOCAINE) 1 mL propofol 10 mg/mL IV (DIPRIVAN) 150 mg rocuronium injection (ZEMURON) 120 mg sugammadex injection 100mg/mL (BRIDION) 400 mg ondansetron injection (ZOFRAN) 4 mg dexamethasone 4 mg/mL injection (DECADRON) 4 mg phenylephrine 100 mcg/mL in NaCl 0.9% syringe 1,650 mc g ePHEDrine 10 mg/mL injection 30 mg ceFAZolin (aka ANCEF) 2 g in dextrose 100 ml IVPB 2 g bupivacaine preservative free 0.25% injection (SENSORC PABLO) 25.5 mL dexmedetomidine (PRECEDEX) 20 mcg in NaCl 5 mL (4 mcg/ mL) injection SYRINGE 16 mcg lactated ringers infusion 1,200 mL Agents Name O2 Air Sevoflurane () Identified Agent Name Blood No blood administrations on file. Lines, Drains, and Airways Type Details Placement Removal Peripheral IV Placement Date: 03/16/21954 by 03/19/212019 y 03/16/21; Placement Azucena Villa, COLETTE RONQUILLO JAYDEN M Time: 954; Pre-existing: No; Inserted by?: RN (Kika Roman); Size (Gauge): 18 G; Orientation: Left; Site Prep: Chlorhexidine; Local Anesthetic: Lidocaine 1%; Insertion attempts: 1; Blood draw with insertion?: no; Patient Tolerance: Tolerated well; Removal Date: 03/19/21; Removal Time: 2019; Removal Reason: Drainage Epidural 03/16/21; 1055 03/16/21 1055 by 03/21/21 1357 b y (created via Xi Amador MD Steiner, Ellen C, lead care manager documentation); T6-7; 19 G; Tolerated well; Met Maximum Sterile Barrier Technique Arterial Line Placement Date: 03/16/21 1140 by 03/16/211914 b y 03/16/21; Placement Xi Amador MD Dressel, Ro xann L RN Time: 1139 (created via procedure documentation); Inserted By?: Anesthesiologist; Antimicrobial?: Patch; Size: 20 gauge; Orientation: Left; Location: Radial; Site Prep: ChloraPrep; Insertion attempts: 1; Securement Method: Sutured, Taped, Skin barrier; Patient Tolerance: Tolerated well; Met Standard Sterile Barrier Technique: Met Standard Sterile Barrier Technique; Removal Date: 03/16/21; Removal Time: 1914; Removal Reason: No longer needed Indwelling Urethral 03/16/21; 1300; No; 03/16/21 1300 by 2 0537 by Catheter OR nurse; Indwelling Marilu Tesfaye RN Garlan d, Kelly L, RN Catheter ETT Placement Date: 03/16/21 1402 by 03/16/[id number] b y 03/16/21; Placement Rosalie Bailey Almquis t, Kathryn M, Time: 140; Placed HAND PRINTED CIRCUIT BOARD ASSEMBLER, FOREIGN DIPLOMAT HAND PRINTED CIRCUIT BOARD ASSEMBLER, FOREIGN DIPLOMAT By: FOREIGN DIPLOMAT; Induction Type: Pre-O2, IV; Masking: Easy; ETT Type: GURMEET; ETT Double Lumen(Fr)35; Orientation: Left; Depth Secured (cm): 26 cm; Cuffed: Cuffed; Cuff Volume: 10 mL; Intubation Method: Video laryngoscopy; Cormack_Lehane Glottic Grade: Grade 1; Glottic View: Cords Open, Cords Clear; Blade: Glidescope; Blade Size: 3; Insertion attempts: 1; Difficulty: Atraumatic; Adjunct Equipment: Stylet; Placement Verification: BBSE, Positive EtCO2, auscultation, palpation of cuff, FOB, capnometry; Teeth and Lips Unchanged: Unchanged; Removal Date: 03/16/21; Removal Time: 1815 Y Chest Tube 1 and 2 03/16/21; 1650; No; 03/16/21 1650 by 1357 by 1; Right; Pleural; 24 Sidney Puentes, Tabby r, Montserrat Coyle, RN Fr.; 2; Right; RN Pleural; 24 Fr. Incision/Surgical Site 03/16/21; 1659; #1; 03/16/21 1659 by 03/20 08/08 1420 by Lda, No; Chest; Lateral, Sidney Puentes, Ozonti nue Right; 04/04/21; 1420 RN documented in this encounter Social History Tobacco Use Types Packs/Day Years [...] at Date Recorded Female 02/21/2021 8:36 PM CERAMIC COATER MACHINE documented as of this encounter Miscellaneous Notes Anesthesia Postprocedure Evaluation - Pedro Bravo MD - 03/17/2021 12:44 AM CST [facility] Anesthesia Post-op Note Patient: Fifi Kasper Post-Op Diagnosis: Malignant neoplasm of lower lobe of right lung (hrc) Procedure Performed: Procedure(s): Right - THORACOSCOPY, RIGHT LOWER LOBE LUNG RESECTION, RIGHT UPPER LOBE WEDGE RESECTION - Wound Class: 2 CLEAN-CONTAMINATED Anesthesia Type: General Post-op vital signs: Vitals Value Taken Time BP 114/64 03/16/212299 Temp 36.4 ??C (97.5 ??F) 03/16/212028 Pulse 78 03/16/212299 Resp 14 03/16/212028 SpO2 96 % 03/16/212299 Pain Score: Presence Of Pain: complains of pain/discomfort Preferred Pain Scale: number (Numeric Rating Pain Scale) Pain Rating (0-10): Rest: 7 Post-op assessment: No anesthesia complication. Patient location: PACU Airway Status: Patent Cardiovascular function: Satisfactory Hydration status: Satisfactory PONV: None Level of Consciousness: Awake Fully Participates Postop Assessment: Patient tolerated procedure well. Electronically signed by: Pedro Bravo MD 03/17/2021 12:44 AM MIC COATER MACHINE Anesthesia Procedure Notes - Xi Amador MD - 03/16/2021 11:53 AM CERAMIC COATER MACHINE Associated Order(s): A-Line A-Line Performed by: Xi Amador MD Authorizing/Supervising provider: Xi Amador MD Patient Location: Pre-op Start Time: 03/16/2021 11:35 AM End Time: 03/16/2021 11:40 AM Indication: continuous blood pressure monitoring Written or Verbal consent obtained: informed consent obtained Inserted by: Anesthesiologist Number of attempts: 1 Procedure Detail: Catheter Type: Arrow Catheter Size: 20 gauge Catheter Length: 12 cm Skin Prep: Chloraprep, hat, mask, sterile gloves and sterile drape Medications from procedure kit: lidocaine PF 1 % - Subcutaneous 1 mL - 03/16/2021 11:38:00 AM Ultrasound Guided?: No Laterality: Left Site: Radial artery Line Secured: Suture, tape and Tegaderm Biopatch?: Yes Maximal sterile barriers: all elements of maximal sterile barrier technique followed.. Events: patient tolerated procedure well with no complications Comments: Performed and signed by Xi Amador MD MIC COATER MACHINE Anesthesia Procedure Notes - Xi Amador MD - 03/16/2021 10:58 AM CERAMIC COATER MACHINE Associated Order(s): Epidural Block Procedure: Epidural Block Performed by: Xi Amador MD Authorizing/Supervising provider: Xi Amador MD Block Start: 03/16/2021 10:45 AM Block end: 03/16/2021 10:55 AM Patient location: pre-op Checklist: post-operative analgesia only, risks and benefits discussed, patient agrees to proceed, IV checked, anesthesia consent, monitors and equipment checked and at surgeon's request Correct patient: yes Correct position: yes Correct site: yes Correct procedure: yes Procedure: Epidural Catheter Patient position: sitting. Sterile prep: Betadine, Sterile gloves, Mask and Patient draped. Maximal sterile barriers: all elements of maximal sterile barrier technique followed.. Insertion site: T6-7 Local anesthesia used Medications from procedure kit: lidocaine PF 1 % - Subcutaneous 3 mL - 03/16/2021 10:50:00 AM Approach: midline Needle gauge: 17 G Needle length 3.5 cm Block needle type Tuohy Cathter gauge 19 G Injection technique: LORT SALINE Attempts: 1 Catheter threaded easily: Yes Paresthesias: no. Aspiration negative for Heme or CSF: Yes Test does negative for signs of intravascular, subdural or intrathecal injection: Yes Medications: Continuous Infusion Medications Administered: Bupivacaine 0.125% and Fentanyl 5 mcg/ml Rate 8 mL/hr Patient tolerated procedure well: Patient tolerated procedure well. Attestations: I personally performed the procedure. Notes: Local anesthesia of procedure site with 2 mL of lidocaine 1% (unless otherwise indicated in Local anesthesia section of note) Test dose done using 3 mL of lidocaine 1.5% with 1:094300 of epinephrine (unless otherwise indicatedin Local anesthesia section of note) Performed and signed by Xi Amador MD Performed by: Xi Amador MD 03/16/2021 at 10:58 AM MIC COATER MACHINE Anesthesia Preprocedure Evaluation - Xi Amador MD - 03/16/2021 10:18 AM CERAMIC COATER MACHINE [facility] Anesthesia Pre-op Evaluation Procedure: THORACOSCOPY/THORACOTOMY/LUNG RESECTION, Right HPI: 50 y.o. old female with Malignant neoplasm of lower lobe of right lung (hrc) Last Fluid Intake Time: 0600 Last Fluid Intake Date: 03/16/21 Last Food Intake Date: 03/15/21 Last Food Intake Time: 1900 Allergies Allergen Reactions ??? Amoxicillin-Pot Clavulanate Diarrhea ??? Doxycycline Other, see comments and Gastrointestinal Sunburn ??? Metronidazole PN: LW Reaction: GI Upset ??? Other PN: LW Other1: -band aid adhesive / redness No past medical history on file. Patient Active Problem List Diagnosis ??? Impaired glucose tolerance test ??? Contact dermatitis and eczema ??? Absence of menstruation ??? Calculus of ureter ??? Impaired glucose tolerance test ??? Malignant neoplasm of lower lobe of right lung (HRC) No past surgical history on file. Outpatient Medications as of 03/16/2021 Medication Sig ??? cyclobenzaprine (AKA FLEXERIL) 10 MG tablet Take 1 tablet by mouth 3 times daily as needed. LW Comment:Needs Appt within 30 days LW Addl Instr:Indicated for: Muscle Spasms (Patient not taking: No sig reported) ??? estradiol (ESTRACE) 1 MG tablet Take 1 mg by mouth daily. ??? FLUoxetine (PROZAC) 10 MG capsule Take 10 mg by mouth daily. ??? hydrocortisone 2.5 % cream Apply 1 Application topically 2 times daily as needed. ??? hydrOXYzine pamoate (VISTARIL) 25 MG capsule TAKE ONE CAPSULE BY MOUTH EVERY 6 HOURS NEEDED ??? LORazepam (ATIVAN) 0.5 MG tablet TAKE ONE TABLET BY MOUTH DIRECTED NEEDED ??? metoprolol succinate (TOPROL XL) 100 MG 24 hour release tablet Take 100 mg by mouth daily. ??? metoprolol succinate (TOPROL XL) 50 MG 24 hour release tablet Take 50 mg by mouth daily. ??? naproxen (AKA NAPROSYN) 500 MG tablet Take 1 tablet by mouth 2 times daily as needed. LW Addl Instr:take with food (Patient not taking: No sig reported) ??? ondansetron (ZOFRAN-ODT) 4 MG disintegrating tablet DISSOLVE ONE TABLET BY MOUTH EVERY 6 HOURS NEEDED ??? prochlorPERAZINE (COMPAZINE) 10 MG tablet Take 1 tablet by mouth every 6 hours as needed. LW Addl Instr:Indicated for: Nausea ??? SUMAtriptan (IMITREX) 50 MG tablet Take 100 mg by mouth once as needed (Take 1 tablet by mouth once as needed.). (Patient taking differently: Take 100 mg by mouth once as needed (Take 1 tablet by mouth once as needed.).) ??? topiramate (TOPAMAX) 100 MG tablet Take 1 tablet by mouth 2 times daily. LW Addl Instr:Indicatedfor: Headache Facility-Administered Medications as of 03/16/2021 Medication Dose Route Frequency ??? ceFAZolin (aka ANCEF) 2 g in dextrose 100 ml IVPB 2 g Intravenous Once ??? fentaNYL (SUBLIMAZE) injection 25-50 mcg 25-50 mcg Intravenous Q5MIN PRN ??? fentaNYL (SUBLIMAZE) injection 50-100 mcg 50-100 mcg Intravenous Q5MIN PRN ??? hydrALAZINE (APRESOLINE) injection 5 mg 5 mg Intravenous PRN ??? HYDROmorphone (DILAUDID) injection 0.2-0.3 mg 0.2-0.3 mg Intravenous Q10MIN PRN ??? labetalol (NORMODYNE) injection 5 mg 5 mg Intravenous Q10MIN PRN ??? lactated ringers infusion 25 mL/hr Intravenous Continuous ??? [COMPLETED] lidocaine PF (XYLOCAINE) 1 % injection 0.1-0.3 mL 0.1-0.3 mL Intradermal Once And ??? lidocaine PF (XYLOCAINE) 1 % injection 0.1-0.3 mL 0.1-0.3 mL Intradermal PRN ??? meperidine (DEMEROL) injection 12.5 mg 12.5 mg Intravenous Q5MIN PRN ??? metoprolol tartrate (LOPRESSOR) injection 5 mg 5 mg Intravenous Q5MIN PRN ??? midazolam (VERSED) injection 0.5-1 mg 0.5-1 mg Intravenous Q5MIN PRN ??? midazolam (VERSED) injection 1-2 mg 1-2 mg Intravenous Q5MIN PRN ??? naloxone (NARCAN) injection 0.08 mg 0.08 mg Intravenous PRN ??? naloxone (NARCAN) injection 0.4 mg 0.4 mg Intravenous ONCE PRN ??? ondansetron (ZOFRAN) injection 4 mg 4 mg Intravenous Q4H PRN Labs: Lab Results Component Value Date/Time SODIUM 145 01/04/2005 12:32 PM K 3.6 01/04/2005 12:32 PM CHLORIDE 112 (H) 01/04/2005 12:32 PM BUN 9 01/04/2005 12:32 PM CREATININE 1.0 01/04/2005 12:32 PM GLUCOSE 90 03/31/2006 09:50 AM Lab Results Component Value Date/Time WBC 4.8 03/16/2021 09:52 AM HGB 12.1 03/16/2021 09:52 AM HCT 37.2 03/16/2021 09:52 AM PLTS 179 03/16/2021 09:52 AM INR (no units) Date Value 02/22/2021 1.0 Blood Bank: No results found for: ABO, ABSCR EKG: No results found for this or any previous visit. Physical Exam: BP 117/65 Pulse (!) 52 Temp 36.6 ??C (97.8 ??F) (Temporal Artery) Resp 16 Ht 4' 11 Wt 73 kg (160 lb 14.4 oz) SpO2 97% BMI 32.50 kg/m?? Assessment/Plan: Review of Systems NPO Status: Acceptable. Patient does not have GERD. Patient is not a current smoker. The patient reports alcohol use. Patient denies any recent URI. History of PONV: No. History of motion sickness: No. Patient denies any personal or family history of anesthesia complications (PONV). Exam Mental Status: Alert and oriented. Mallampati score: II (Two). Mouth opening: Normal Thyromental Distance: > 3 finger breadths and Normal Neck Extension: Full Neck Circumference > 40 cm?: No Current airway assessment:Normal Dentition: Age appropriate. Cardiac Exam: Regular rate and rhythm. Respiratory Exam: Breath sounds clear to auscultation Assessment ASA Status: 2 . Plan Anesthesia type: General, ETT and Epidural Induction: Intravenous and Propofol Maintenance: Inhalation Postoperative pain management (PONV): Epidural for postoperative analgesia at surgeon's request PONV Risk Score Adult: 2 PONV Prophylaxis (planned): Ondansetron and Decadron Anesthetic plan, risks, benefits and alternatives discussed with: Patient or Slot Technician agree tothe anesthesia treatment plan. Additional equipment needed: Arterial line and Double lumen ETT The patient and/or their accounting representative were notified about the potential risks of damage to the lips, teeth, dental devices, mouth and airway. H&P Reviewed and Patient examined, no change observed IV access Antibiotics per surgery Electronically signed by: Xi Amador MD 03/16/2021 10:18 AM MIC COATER MACHINE documented in this encounter Plan of Treatment Not on filedocumented as of this encounter Procedures Procedure Name Priority Date/Time Associated Diagnosis Comme nts A-LINE Routine 03/16/2021 11:53 AM Results for this CERAMIC COATER MACHINE procedure are i n the results section . EPIDURAL BLOCK Routine 03/16/2021 10:58 AM Result s for this CERAMIC COATER MACHINE procedure are i n the results section . documented in this encounter Results A-LINE (03/16/2021 11:53 AM CERAMIC COATER MACHINE) Narrative EXTERNAL RESULTS - 03/16/2021 11:53 AM Xi Novoa MD ? 03/16/2021 11:54 AM A-Line Performed by: Xi Amador MD Authorizing/Supervising provider: ??Xi Amador MD Patient Location: ??Pre-op Start Time: ??03/16/2021 11:35 AM End Time: ?03/16/2021 11:40 AM Indication: continuous blood pressure m onitoring ?? Written or Verbal consent obtained: inf ormed consent obtained Inserted by: ??Anesthesiologist Number of attempts: 1 Procedure Detail: ??Catheter Type: ??Arrow ??Catheter Size: ??20 gauge ??Catheter Length: 12 cm Skin Prep: ??Chloraprep, hat, mask, ster ile gloves and sterile drape Medications from procedure kit: lidocain e PF 1 % - Subcutaneous 1 mL - 03/16/2021 11:38:00 AM ??Ultrasound Guided?: No ?? Laterality: ??Left Site: ??Radial artery Line Secured: ??Suture, tape and Tegader m Biopatch?: Yes ?? Maximal sterile barriers: all elements o f maximal sterile barrier technique followed.. Events: patient tolerated procedure well with no complications ?? Comments: Performed and signed by Xi shea MD Xi Amador MD [facility] PROCEDURES Performing Organization Address City/State/ZIP Code Phon e Number EXTERNAL RESULTS EPIDURAL BLOCK (03/16/2021 10:58 AM CERAMIC COATER MACHINE) Narrative EXTERNAL RESULTS - 03/16/2021 10:58 AM C Xi Mason MD ? 03/16/2021 10:59 AM Procedure: Epidural Block Performed by: Xi Amador MD Authorizing/Supervising provider: ??Xi Amador MD Block Start: 03/16/2021 10:45 AM Block end: 03/16/2021 10:55 AM Patient location: pre-op Checklist: post-operative analgesia only , risks and benefits discussed, patient agrees to proceed, IV checked, a nesthesia consent, monitors and equipment checked and at surgeon's reque st Correct patient: yes ? Correct position: yes Correct site: yes ? Correct procedure: yes ? Procedure: Epidural Catheter Patient position: sitting. Sterile prep: Betadine, Sterile gloves, Mask and Patient draped. Maximal sterile barriers: all elements o f maximal sterile barrier technique followed.. Insertion site: T6-7 Local anesthesia used Medications from procedure kit: lidocain e PF 1 % - Subcutaneous 3 mL - 03/16/2021 10:50:00 AM Approach: midline Needle gauge: 17 G Needle length 3.5 cm Block needle type Tuohy Cathter gauge 19 G Injection technique: LORT SALINE ? Attempts: 1 ? Catheter threaded easily: Yes Paresthesias: no. Aspiration negative for Heme or CSF: Yes Test does negative for signs of intravas cular, subdural or intrathecal injection: Yes Medications: Continuous Infusion Medications Administ ered: Bupivacaine 0.125% and Fentanyl 5 mcg/ml Rate 8 mL/hr Patient tolerated procedure well: Patien t tolerated procedure well. Attestations: I personally performed the procedure. Notes: Local anesthesia of procedure sit e with 2 mL of lidocaine 1% (unless otherwise indicated in Local an esthesia section of note) Test dose done using 3 mL of lidocaine 1 .5% with 1:406778 of epinephrine (unless otherwise indicated in Local an esthesia section of note) Performed and signed by Xi Amador MD Performed by: Xi Amador MD 03/16/2021 at 10:58 AM Electronically signed by Xi Amador MD Xi Amador MD ANESTHESIA/AR Performing Organization Address City/State/ZIP Code Phon e Number EXTERNAL RESULTS documented in this encounter Visit Diagnoses Not on filedocumented in this encounter Administered Medications Inactive Administered Medications - up to 3 most recent administrations Medication Order MAR Action Action Date Dose Rate Site bupivacaine 0.25% PF (2.5 Started 03/16/2021 2:25 PM CERAMIC COATER MACHINE 6 mL/hr 6 mL/hr mg/mL) (SENSORCAINE) 0.25 % injection Regional Nerve Block, Starting on Fri03/16/21 at 1421, Until Fri03/16/21 at 1824 Given 03/16/2021 2:21 PM CERAMIC COATER MACHINE 5 mL ceFAZolin (aka ANCEF) 2 g in dextrose 100 ml Given 03/16/2021 2: 15 PM CERAMIC COATER MACHINE 2 g IVPB 2 g, Intravenous, Administer over 30 Minutes, ONCE, On Fri03/16/21 at 1000, For 1 dose, Infuse within 60 minutes prior to incision. Re-dose 1 gram IV every 4 hours after initial dose until incision closed. Re-dose if more than 1.5 L of blood loss. Pharmacy may adjust for renal insufficiency., Pre-op dexamethasone (DECADRON) injection Given 03/16/2021 2:22 PM CERAMIC COATER MACHINE 4 mg Intravenous, Starting on Fri03/16/21 at 1422, Until Fri03/16/21 at 1824 dexmedetomidine 20 mcg/5 mL injection Given 03/16/2021 5:51 PM CERAMIC COATER MACHINE 4 mcg Intravenous, Starting on Fri03/16/21 at 1747, Until Fri03/16/21 at 1824 Given 03/16/2021 5:47 PM CERAMIC COATER MACHINE 12 mcg ePHEDrine 10 mg/mL injection Given 03/16/2021 5:38 PM CERAMIC COATER MACHINE 10 mg Intravenous, Starting on Fri03/16/21 at 1456, Until Fri03/16/21 at 1824 Given 03/16/2021 4:44 PM CERAMIC COATER MACHINE 5 mg Given 03/16/2021 3:15 PM CERAMIC COATER MACHINE 10 mg fentaNYL (SUBLIMAZE) injection Given 03/16/2021 1:59 PM CERAMIC COATER MACHINE 50 mcg Intravenous, Starting on Fri03/16/21 at 1359, Until Fri03/16/21 at 1824 HYDROmorphone (DILAUDID) injection Given 03/16/2021 5:07 PM CERAMIC COATER MACHINE 0.5 mg Intravenous, Starting on Fri03/16/21 at 1707, Until Fri03/16/21 at 1824 Given 03/16/2021 5:00 PM CERAMIC COATER MACHINE 0.5 mg lactated ringers infusion Started 03/16/2021 4:56 PM CERAMIC COATER MACHINE 25 mL/hr, Intravenous, CONTINUOUS, Starting on Fri03/16/21 at 0945, Administer on all preop surgery patients, ages 12 and older, unless specified differently in the Protocol for Preop Initiation of IV fluids Order Set., Pre-op Restarted 03/16/2021 1:47 PM CERAMIC COATER MACHINE Started 03/16/2021 10:08 AM CERAMIC COATER MACHINE 25 mL/hr 25 mL/hr lidocaine PF (XYLOCAINE) 1 % injection Given 03/16/2021 10:50 AM CERAMIC COATER MACHINE 3 mL Subcutaneous, Starting on Fri03/16/21 at 1050 lidocaine PF (XYLOCAINE) 1 % injection Given 03/16/2021 11:38 AM CERAMIC COATER MACHINE 1 mL Subcutaneous, Starting on Fri03/16/21 at 1138 lidocaine PF (XYLOCAINE) 1 % injection Given 03/16/2021 1:59 PM CERAMIC COATER MACHINE 100 mg Intravenous, Starting on Fri03/16/21 at 1359 midazolam (VERSED) injection Given 03/16/2021 1:47 PM CERAMIC COATER MACHINE 2 mg Intravenous, Starting on Fri03/16/21 at 1347, Until Fri03/16/21 at 1824 ondansetron (ZOFRAN) injection Given 03/16/2021 4:56 PM CERAMIC COATER MACHINE 4 mg Intravenous, Starting on Fri03/16/21 at 1656, Until Fri03/16/21 at 1824 phenylephrine-NaCl 0.9% (DARWIN-SYNEPHRINE) Given 03/16/2021 5:34 P M CERAMIC COATER MACHINE 100 mcg injection Intravenous, Starting on Fri03/16/21 at 1422, Until Fri03/16/21 at 1824 Given 03/16/2021 5:24 PM CERAMIC COATER MACHINE 100 mcg Given 03/16/2021 5:18 PM CERAMIC COATER MACHINE 100 mcg propofol (DIPRIVAN) 10 mg/mL injection Given 03/16/2021 1:59 PM CERAMIC COATER MACHINE 150 mg Intravenous, Starting on Fri03/16/21 at 1359, Until Fri03/16/21 at 1824 rocuronium (ZEMURON) injection Given 03/16/2021 5:07 PM CERAMIC COATER MACHINE 40 mg Intravenous, Starting on Fri03/16/21 at 1400, Until Fri03/16/21 at 1824 Given 03/16/2021 4:16 PM CERAMIC COATER MACHINE 10 mg Given 03/16/2021 3:30 PM CERAMIC COATER MACHINE 10 mg sugammadex (BRIDION) injection Given 03/16/2021 5:42 PM CERAMIC COATER MACHINE 200 mg Intravenous, Starting on Fri03/16/21 at 1701, Until Fri03/16/21 at 1824 Given 03/16/2021 5:01 PM CERAMIC COATER MACHINE 200 mg documented in this encounter Care Teams Child Protective Services Social Worker Relationship Specialty Start Date End Date David Choudhury MD PCP - General Family Practice 03/16/21 [address] [place] [address] documented as of this encounter
--- OUTSIDE RECORDS SUMMARY | 2021-11-09 06:15 | XMS_ITS | Encounter Summary ---
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 Please call her with results when they are in [phone] Created on 11Sep2006 8:05am by HOSSEIN SU M On 11Sep2006 9:15am SURINDER HUA wrote: Several small stones in bilat kidneys, none larger than 3 mm. Pt was reassured. All other visualized organs looked normal. Pain has been stable. Worse with taking a deep breath. Suggest pleuritic chest pain. Continue to monitor. FU PRN. She wants to taper down on Topamax. She will monitor for worsening headaches and let me know. Acknowledged by SURINDER HUA on 9:15am ALL APPLICATOR documented in this encounter Plan of Treatment Not on filedocumented as of this encounter Visit Diagnoses Not on filedocumented in this encounter Care Teams Military Exchange Wireless Manager Relationship Specialty Start Date End Date Theresa Hardy MD PCP - General 05/22/10 03/15/21 [address] [place] [facility] [place] [address] documented as of this encounter
--- OUTSIDE RECORDS SUMMARY | 2021-11-09 06:15 | XMS_ITS | Encounter Summary ---
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
--- OUTSIDE RECORDS SUMMARY | 2021-11-09 06:15 | XMS_ITS | Encounter Summary ---
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 PYLORI ANTIGEN, Routine 08/20/2006 4:00 PM Res ults for this STOOL CDT procedure are i n the results section. documented in this encounter Results H. Pylori Antigen, Stool (08/20/2006 4:00 PM CDT) Analysis Performed At Patho logist Time Signature H Pylori Ag, NEGATIVE NEGATIVE HP CONVERSION Stl Comment: Performed at [facility] [address] [place] [id number] Specimen (Source) Anatomical Collection Method Collection Time Re ceived Time Location / / Volume Laterality 08/20/2006 4:00 PM CDT Liudmila Beatty PA-C LAB_1 Performing Organization Address City/State/ZIP Code Phon e Number HP CONVERSION documented in this encounter Visit Diagnoses Not on filedocumented in this encounter Care Teams Director Project Management Relationship Specialty Start Date End Date Theresa Hardy MD PCP - General 05/22/10 03/15/21 [address] [place] [facility] [place] [address] documented as of this encounter
--- OUTSIDE RECORDS SUMMARY | 2021-11-09 06:15 | XMS_ITS | Encounter Summary ---
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 [place], [place] RESECTION, [place] [address] LOBE [place] RESECTION [id number] [phone] Social History Tobacco Use Types Packs/Day Years [...] at Date Recorded Female 02/21/2021 8:36 PM YARN SKEINS EXAMINER documented as of this encounter Last Filed Vital Signs Vital Sign Reading Time Taken Comments Blood Pressure 104/62 03/16/2021 11:42 AM YARN SKEINS EXAMINER Pulse 57 03/16/2021 11:42 AM YARN SKEINS EXAMINER Temperature 36.6 ??C (97.8 ??F) 03/16/2021 9:49 AM YARN SKEINS EXAMINER Respiratory Rate 19 03/16/2021 11:42 AM YARN SKEINS EXAMINER Oxygen Saturation 97% 03/16/2021 11:42 AM YARN SKEINS EXAMINER Inhaled Oxygen Concentration - - Weight 73 kg (160 lb 14.4 oz) 03/16/2021 9:49 AM YARN SKEINS EXAMINER Height 149.9 cm (4' 11) 03/16/2021 9:49 AM YARN SKEINS EXAMINER Body Mass Index 32.92 03/16/2021 8:29 PM YARN SKEINS EXAMINER documented in this encounter Discharge Summaries Nathaly Gonzalez PA-C - 03/21/2021 2:20 PM CST DISCHARGE SUMMARY Patient ID: Fifi Kasper [id number] y.o. 1970 Admit date: 03/16/2021 Discharge [...] as needed.)., Disp-18, R-3, ONCE PRN Starting Fri05/30/2003, Oral, HistoricalPN: topiramate (TOPAMAX) 100 MG tablet Take 1 tablet by mouth 2 times daily. LW Addl Instr:Indicated for: Headache, Disp-60, R-5, BID Starting Fri04/18/2006, Oral, FaxPN: LW called/fax pharm:[facility] Fax #:[phone] !! - Potential duplicate medications found. Please [...] will arrange your first appointment with them. SKEINS EXAMINER documented in this encounter Discharge Instructions Discharge Instr - Other Nathaly Castellanos PA-C - 03/21/2021 12:[address]ER [address] Surgery Discharge Instructions Please shower and gently wash incisions daily. Change dressings over chest tube sites daily until dry, then leave open to air. No driving until seen by surgeon in follow-up. No heavy lifting or strenuous activity. Watch for signs of infection: redness, fever, warmth to incision, odor from incision-call surgeon's office with any of these symptoms. SKEINS EXAMINER documented in this encounter Medications at Time [...] as of this encounter Progress Notes Montserrat Chavez RN - 03/21/2021 1:51 PM CST DISCHARGE O: Patient safely discharged to home. D: Patient is alert and oriented x 4. Pt up independently . Discharge criteria met. Vaccines addressed prior to discharge. A: Discharge instructions and medications reviewed and given to patient. Written medication education material provided on oxycodone including possible side effects. Prescriptions filled by [facility] pharmacy. Belongings checklist reviewed with patient and belongings sent. Care plan issues addressed and education record updated. R: Patient verbalizes understanding and teaches back discharge instructions. Patient discharged by: wheelchair with family. SKEINS EXAMINER Nathaly Gonzalez PA-C - 03/21/2021 12:33 PM [...] Out: 1740 [Urine:1470; Chest Tube:270] UOP: 100/8h CAR INSTALLATIONS SUPERVISOR: 270/24 Air Leak: No Current Weight: 163 lb (29401 g) Admission Weight: 161 PHYSICAL EXAM: Heart: [...] as long as pain is treated appropriately SKEINS EXAMINER Kj Nagy MD - 03/21/2021 6:28 AM CST Anesthesiology Acute Pain Progress Note POD# 5 Epidural for pain SUBJECTIVE: Pain at rest 0/10, dynamic pain 1/10 Nausea no Pruritis no OBJECTIVE: Catheter site: old heme ASSESSMENT/PLAN: Continue current therapy yes Likely d/c today by CV surgery Kj Nagy MD 6:29 AM, 03/21/2021 [facility] [place] - 03/21/2021 6:13 AM CST Shift Update: [...] Resp: 17 Temp: 36.9 ??C (98.5 ??F) SKEINS EXAMINER Emani Joe RN - 03/20/2021 6:13 PM CST Shift [id number] Epidural still running at 10mL/h. Pain well managed. R CT y-site, provider changed dressig in AM. Total CT output 130mL. CXR in afternoon, is on oral lasix. Ambulating in halls with RN, up in chair often. On RA, continuous pulse ox, working on IS. Overall pleasant & can make needs known. Sha Rubalcava PA-C - 03/20/2021 11:38 AM CST DAILY [...] 3 completed shifts: In: 1919 [Oral:1919] Out: 2475 [Urine:2225; Chest Tube:250] UOP: 600/8h CAR INSTALLATIONS SUPERVISOR: 170 since 0 on 03/19/21 Air Leak: No Current Weight: 163 lb (25921 g) Admission Weight: 161 PHYSICAL EXAM: Heart: [...] (4 walks per day) and IS use SKEINS EXAMINER Dennis Owusu MD - 03/20/2021 8:40 AM CST Anesthesiology Acute Pain Progress Note 03/20/2021, 8:40 AM Fifi Ranjith [id number] 1970 Iinfusion rate: 10 ml/hr SUBJECTIVE: Pain [...] Discontinue tomorrow: possible, depending on chest tubes. SKEINS EXAMINER Emani Joe RN - 03/19/2021 6:45 PM CST Shift [id number] Epidural still running at 10mL/h. R CT y-sited & air leak present-- not new occurrence. Total output 200mL. Provided torodol x1 for shoulder/CT site pain w/ relief. C/o generalized itching, provided benadryl x1 with improvement. Is ambulating in halls with RN, up in chair often. On RA, continuous pulse ox. Overall pleasant & can make needs known. SKEINS EXAMINER Abdoulaye Silvestre APRN, MARKETING TECHNOLOGIST - 03/19/2021 10:07 AM CST DAILY PROGRESS [...] 3 completed shifts: In: 1320 [Oral:1320] Out: 2355 [Urine:2024; Chest Tube:330] UOP: 1050/8h CAR INSTALLATIONS SUPERVISOR: 170/8h Air Leak: No Current Weight: 161 lb (55123 g) Admission Weight: 161 PHYSICAL EXAM: Heart: [...] (4 walks per day) and IS use SKEINS EXAMINER Tommy Amador MD - 03/19/2021 7:14 AM CST Anesthesiology Acute Pain Progress Note 03/19/2021, 7:14 AM Fifi Kasper [id number] 1970 Surgical Procedure: R Thoracoscopy/RLL Resection Post-op [...] well Discontinue once chest tubes are removed SKEINS EXAMINER Nathaly Gonzalez PA-C - 03/18/2021 9:45 AM [...] Out: 2720 [Urine:2300; Chest Tube:420] UOP: 350/8h CAR INSTALLATIONS SUPERVISOR: 130/8h Air Leak: Yes Current Weight: 161 lb (31207 g) Admission Weight: 161 PHYSICAL EXAM: Heart: [...] (4 walks per day) and IS use SKEINS EXAMINER Yandy Clarke MD - 03/18/2021 7:32 AM CST Anesthesiology Acute Pain Progress Note 03/18/2021 Fifi Kasper [id number] 1970 Patient is post-op day # 2 [...] or concerns. Yandy Clarke MD 7:32 AM SKEINS EXAMINER Marilu Tesfaye, RN - 03/18/2021 5:55 AM CST Shift Update: -Patient reports pain is controlled. Pain is worse w/ deep breathing and coughing. -Nubain x1 for itching. -Ambulated to the bathroom and in room without issue. -Had a BM. -Tolerating regular diet. -Keenan removed at 0540. Vitals: 03/18/21 0507 BP: 101/40 Pulse: 67 Resp: 18 Temp: SKEINS EXAMINER Nathaly Gonzalez PA-C - 03/17/2021 10:23 AM [...] air I/O last 3 completed shifts: In: 1980 [Oral:100; IV:1881] Out: 1371 [Urine:1050; Chest Tube:121] UOP: 800/8h CAR INSTALLATIONS SUPERVISOR: 80/8h Air Leak: Yes Current Weight: 161 lb (55211 g) Admission Weight: 161 PHYSICAL EXAM: Heart: [...] (4 walks per day) and IS use SKEINS EXAMINER Gina Bravo MD - 03/17/2021 8:00 AM CST Anesthesiology [...] removed. Gina Bravo MD 8:00 AM, 03/17/2021 SKEINS EXAMINER Marilu Tesfaye RN - 03/17/2021 6:04 AM CST Shift [...] Resp: 16 Temp: 36.9 ??C (98.4 ??F) Adela Mclaughlin RN - 03/16/2021 8:45 PM CST ADMIT O: Admitted patient via cart from Post-Anesthesia Recovery to bed # [id number]. D: Patient is alert and oriented x 4 See Admission Assessments. A: Discussed plan of care. See education record for admission education. Oriented to room. Call light in reach. Bed alarm: on R: Patient status: VSS, pain controlled. Will monitor. SKEINS EXAMINER documented in this encounter Procedure Notes Gina Tierney MD - 03/16/2021 5:56 PM CST [facility] Brief Operative Progress Note Surgery Date: 03/16/2021 [...] STATION 10 Tissue Lymph node SURGICAL PATHOLOGY Gina Tierney MD 03/16/2021 1616 5 : RIGHT LOWER LOBE PLEASE FEEZE PARANCHEAL AREA BY STITCH Tissue Lung, right lower lobe SURGICAL PATHOLOGY Gina Tierney MD 03/16/2021 1629 6 : right upper lobe stitch is previous staple margin Tissue Lung, right upper lobe SURGICAL PATHOLOGY Gina Tierney MD 03/16/2021 1722 Complications / Findings: As expected SKEINS EXAMINER Gina Tierney MD - 03/16/2021 12:00 AM CST NAME: FIFI KASPER CSN: [id number] OPERATIVE REPORT DATE OF SURGERY: 03/16/2021 : 1970 SURGEON: GINA TIERNEY MD PREOPERATIVE DIAGNOSIS: Adenocarcinoma of the right lower lobe. POSTOPERATIVE DIAGNOSIS: Adenocarcinoma of the right lower lobe. PROCEDURE: Right lower lobectomy with a minimally invasive video-assisted thoracoscopic technique. IT ARCHITECT: Nathaly Gonzalez PA-C. SPECIMEN: Station 9, 2, [...] chest was irrigated with saline and two 24-Lebanese chest tubes were placed and secured with #2 nylon sutures. The myofascial layers were closed with 2-0 Vicryl and deep dermal tissue was closed with 3-0 Vicryl. The skin was closed with 4-0 Monocryl. All sponge, needle, instrument counts were correct at the conclusion of the operation. IGina, was present and scrubbed for the entire procedure. GINA TIERNEY MD TAS/AQS /[id number] SKEINS EXAMINER documented in this encounter Plan of Treatment Not on filedocumented as of this encounter Procedures Procedure Name Priority Date/Time Associated Diagnosis Comme nts XR CHEST 1 VIEW Routine 03/20/2021 4:41 PM Result s for this YARN SKEINS EXAMINER procedure are i n the results section. HEMOGLOBIN, BLOOD STAT 03/16/2021 6:37 PM Resu lts for this YARN SKEINS EXAMINER procedure are i n the results section. POTASSIUM STAT 03/16/2021 6:37 PM Results f or this YARN SKEINS EXAMINER procedure are i n the results section. SURGICAL PATHOLOGY Routine 03/16/2021 2:48 PM Malignant neopla sm Results for this YARN SKEINS EXAMINER of lower lobe of procedure a re in right lung (HRC) the results section. THORACOSCOPY/THORAC 03/16/2021 1:19 PM Malignant neopl asm OTOMY/LUNG YARN SKEINS EXAMINER of lower lobe of RESECTION right lung (HRC) Case Notes XRAY TAKEN AT END OF CASE BT SECOND DRAW STAT 03/16/2021 10:21 Results f or this AM YARN SKEINS EXAMINER procedure are i n the results section. GLUCOSE, WHOLE BLOOD Routine 03/16/2021 10:17 Res ults for this POCT AM YARN SKEINS EXAMINER procedure are i n the results section. ECG 12 LEAD INPATIENT Specified Time 03/16/2021 10:08 Malignant Results for this AM YARN SKEINS EXAMINER neoplasm of procedure are i n lower lobe of the results right lung (HRC) section. US ANESTHESIA GUIDED STAT 03/16/2021 10:06 Res ults for this BLOCK AM YARN SKEINS EXAMINER procedure are i n the results section. TYPE AND SCREEN Routine 03/16/2021 9:52 Malignant Results f or this AM YARN SKEINS EXAMINER neoplasm of procedure are i n lower lobe of the results right lung (HRC) section. CBC AND DIFFERENTIAL STAT 03/16/2021 9:52 Malignant Resu lts for this PANEL AM YARN SKEINS EXAMINER neoplasm of procedure are i n lower lobe of the results right lung (HRC) section. ANTIBODY SCREEN Routine 03/16/2021 9:52 Malignant Results f or this AM YARN SKEINS EXAMINER neoplasm of procedure are i n lower lobe of the results right lung (HRC) section. BLOOD TYPE Routine 03/16/2021 9:52 Malignant Results for this AM YARN SKEINS EXAMINER neoplasm of procedure are i n lower lobe of the results right lung (HRC) section. COMPLETE BLOOD STAT 03/16/2021 9:52 Malignant Results fo r this COUNT-W/DIFF AM YARN SKEINS EXAMINER neoplasm of procedure are i n lower lobe of the results right lung (HRC) section. BASIC METABOLIC PANEL STAT 03/16/2021 9:52 Malignant Res ults for this AM YARN SKEINS EXAMINER neoplasm of procedure are i n lower lobe of the results right lung (HRC) section. APTT (ACTIVATED STAT 03/16/2021 9:52 Malignant Results f or this PARTIAL AM YARN SKEINS EXAMINER neoplasm of procedure are i n THROMBOPLASTIN TIME lower lobe of the res ults right lung (HRC) section. INR/PROTIME STAT 03/16/2021 9:52 Malignant Results for this AM YARN SKEINS EXAMINER neoplasm of procedure are i n lower lobe of the results right lung (HRC) section. POCT URINE STAT 03/16/2021 9:40 Resu lts for this AM YARN SKEINS EXAMINER procedure are i n the results section. documented in this encounter Results XR Chest 1 View (03/20/2021 4:41 PM YARN SKEINS EXAMINER) Anatomical Region Laterality Modality Chest, Lung Digital Radiography Specimen (Source) Anatomical Collection Method Collection Time Re ceived Time Location / / Volume Laterality 03/20/2021 4:36 PM YARN SKEINS EXAMINER Impressions 03/20/2021 4:47 PM YARN SKEINS EXAMINER COMPARISON: ??03/16/2021 FINDINGS: Patient rotated. Prior ET [...] atelectasis. Left lung clear. Procedure Note Armen Morillo, DO - 03/20/2021For matting of this note [...] right basilar atelectasis. Left lung clear. Sha ANDRE GD POTASSIUM (03/16/2021 6:37 PM YARN SKEINS EXAMINER) athologist Signature Potassium 3.7 3.5 - 5.1 03/16/2021 [facility] mmol/L 7:03 PM YARN SKEINS EXAMINER LABORATORY Specimen Anatomical Collection Method / Collection Time Recei leoncio Time (Source) Location / Volume Laterality Blood Venipuncture / 03/16/2021 6:37 03/16/2021 6:50 Unknown PM YARN SKEINS EXAMINER PM YARN SKEINS EXAMINER Gina Tierney MD LAB_1 Performing Organization Address City/State/ZIP Code Phon e Number [facility] [address] [place] [address] HEMOGLOBIN, BLOOD (03/16/2021 6:37 PM YARN SKEINS EXAMINER) athologist Signature Hemoglobin 12.3 12.0 - 15.5 03/16/2021 [facility] g/dL 6:53 PM YARN SKEINS EXAMINER LABORATORY Specimen Anatomical Collection Method / Collection Time Recei leoncio Time (Source) Location / Volume Laterality Blood Venipuncture / 03/16/2021 6:37 03/16/2021 6:50 Unknown PM YARN SKEINS EXAMINER PM YARN SKEINS EXAMINER Gina Tierney MD LAB_1 Performing Organization Address City/State/ZIP Code Phon e Number [facility] [address] [place] [address] Surgical Path (03/16/2021 2:48 PM YARN SKEINS EXAMINER) Component Value Ref Test Analysis Performed At [facility] Range Method Time Signature Case Report Surgical Pathology ?Case: [id number] ? 03/21/2021 [facility] Authorizing Provider: ??Gina Estrada MD ?Collected: ? 03/16/2021 1448 ? 3:24 PM LABO RATORY Ordering Location: ? [facility] ?? Received: ?03/16/2021 1459 ? YARN SKEINS EXAMINER Pathologist: ? Augie Escalera MD ? Specimens: ?? A) - Lymph nod [...] A. Lymph node, STATION 9, biopsy: 03/21/2021 [facility] Electronically Please see synoptic report for details 3 :24 PM LABORATORY signed by YARN SKEINS EXAMINER Augie Escalera B. Lymph node, STATION 7, [...] report for details Synoptic Report LUNG 03/21/2021 [facility] LUNG: RESECTION - All Specimens 3:24 PM LABORATORY 8th Edition - Protocol posted: 06/16/2019 YARN SKEINS EXAMINER SPECIMEN ?? Procedure: ?Wedge resection ?? Specimen [...] Lymph Nodes (pN): ?pN0 Clinical Malignant 03/21/2021 [facility] Information neoplasm of 3:24 PM LABORATORY lower lobe of YARN SKEINS EXAMINER right lung (HRC) Microscopic Microscopic 03/21/2021 [facility] Description examination is 3:24 PM LABORATORY performed. YARN SKEINS EXAMINER Special Stains The stain controls have been reviewed and stain appropriately. Elastic stain performed on block E6 does not demonstrate visceral pleural invasion. 03/21/2021 [facility] 3:24 PM LABORATORY YARN SKEINS EXAMINER Gross A: 03/21/2021 [facility] Description The specimen is received beth for frozen section and labeled with the patient's name and Lymph node, STATION 9. The specimen consists of a 0.2 cm tissue fragment. The specimen is entirely submitted for frozen section in cassette A1. DJ 3:24 PM LABORATORY YARN SKEINS EXAMINER B: The specimen is received beth for frozen section and labeled with the patient's name and Lymph node, STATION 7. The specimen consists of multiple fragments of soft tissue aggregating to 1 x 1 x 0.5 c m. The specimen is entirely submitted for frozen section i n cassette B1. DJ C: The specimen is received beth sh for frozen section and labeled with the patient's name and Lymph node, STATION 2R AND 4R. The specimen consists of a 1.5 x 1.5 x 0.5 cm portion of fatty tissue. The spec imen is entirely submitted for frozen section in cassette C1 . DJ D: The specimen is received beth sh and labeled with the patient's name and [...] The remaining parenchyma is purple-brown and spongy. [employer]land [employer] Specialist sections are submitted as follows: E1: Frozen section remnant, en face parenchymal margin neare st mass E2: En face bronchial margin E3: En face vascular margins E4: 3 whole possible lymph nodes E5: Additional en face parenchymal margin near mass is E6-E10: Mass entirely submitted with area of pleural puckeri ng E11: Smaller nodules, whole E12: [employer] Specialist uninvolved parenchyma F: The specimen is received beth for [...] margin/previous staple line). DJ Intraoperative A: 03/21/2021 [facility] Consultation Frozen section diagnosis (FS A1): Station 9 lymph node -- negative. (Result called into OR 6 by [facility] at 3:11 PM, 03/16/2021) 3:24 PM LABORATORY YARN SKEINS EXAMINER B: Frozen section diagnosis (FS B1): Station 7 lymph node -- negative. (Result called into OR 6 by J[facility] at 3:19 PM, 03/16/2021) C: Frozen section diagnosis (FS C1): Station 4R and 2R -- negative. (Result called into OR 6 by J[facility] at 4:22 PM, 03/16/2021) E: Frozen section diagnosis (FS E1): Right lower lobe -- positive for carcinoma. (Result called into OR 6 by [facility] at 5:05 PM, 03/16/2021) F: Frozen section diagnosis (FS F1): Right upper lobe wedge -- negative. (Result called into OR 6 by [facility] at 5:41 PM, 03/16/2021) Embedded Images 03/21/2021 [facility] 3:24 PM LABORATORY YARN SKEINS EXAMINER Specimen Anatomical Collection Method Collection Time Receive d Time (Source) Location / / Volume Laterality Tissue LYMPH NODE BIOPSY 03/16/2021 2:48 PM 02/18 2:59 SPECIMEN / Unknown YARN SKEINS EXAMINER PM YARN SKEINS EXAMINER Tissue specimen LYMPH NODE BIOPSY 03/16/2021 3:01 PM 0 03/16/2021 3:08 (specimen) SPECIMEN / Unknown YARN SKEINS EXAMINER PM YARN SKEINS EXAMINER Tissue specimen LYMPH NODE BIOPSY 03/16/2021 3:51 PM 0 03/16/2021 4:07 (specimen) SPECIMEN / Unknown YARN SKEINS EXAMINER PM YARN SKEINS EXAMINER Tissue specimen LYMPH NODE BIOPSY 03/16/2021 4:16 PM 0 03/16/2021 4:35 (specimen) SPECIMEN / Unknown YARN SKEINS EXAMINER PM YARN SKEINS EXAMINER Tissue specimen SPECIMEN FROM LUNG 03/16/2021 4:29 PM 03/16/2021 4:35 (specimen) / Unknown YARN SKEINS EXAMINER PM YARN SKEINS EXAMINER Tissue specimen SPECIMEN FROM LUNG 03/16/2021 5:22 PM 03/16/2021 5:27 (specimen) / Unknown YARN SKEINS EXAMINER PM YARN SKEINS EXAMINER Gina Tierney MD LAB PATHOLOGY Performing Organization Address City/[facility] Code Phon e Number [facility] [place] [address] Blood Type second draw (03/16/2021 10:21 AM YARN SKEINS EXAMINER) P athologist Signature ABO O 03/16/2021 [facility] 12:05 PM YARN SKEINS EXAMINER BLOOD BANK RH Negative 03/16/2021 [facility] 12:05 PM YARN SKEINS EXAMINER BLOOD BANK Specimen Anatomical Collection Method / Collection Time Recei leoncio Time (Source) Location / Volume Laterality Blood Venipuncture / 03/16/2021 10:21 Unknown AM YARN SKEINS EXAMINER 10:40 AM YARN SKEINS EXAMINER Gina Tierney MD LAB_1 Performing Organization Address [facility] Code Phon e Number [facility] [address] [place] [address] Glucose, Whole Blood POCT (03/16/2021 10:17 AM YARN SKEINS EXAMINER) Analysis Performed At Patho logist Time Signature Glucose, Whole 90 70 - 180 03/16/2021 [facility] Blood mg/dL 10:19 AM YARN SKEINS EXAMINER LABORATORY Performing [facility] SURG 03/16/2021 [facility] Location 10:19 AM YARN SKEINS EXAMINER LABORATORY Specimen Anatomical Collection Method Collection Time Receive d Time (Source) Location / / Volume Laterality Blood 03/16/2021 10:17 03/16/2021 AM YARN SKEINS EXAMINER 10:19 AM YARN SKEINS EXAMINER Gina Tierney MD LAB_1 Performing Organization Address [facility] Phon e Number [facility] [address] [place] [address] ECG 12 Lead Inpatient (03/16/2021 10:08 AM YARN SKEINS EXAMINER) P athologist Signature Ventricular Rate 54 BPM [facility] Atrial Rate 54 BPM [facility] P-R Interval 154 ms [facility] QRS Duration 86 ms [facility] QT 448 ms [facility] QTc 424 ms [facility] P [place] 55 degrees [facility] R [place] 8 degrees [facility] T [place] 59 degrees [facility] Specimen (Source) Anatomical Collection Method Collection Time Re ceived Time Location / / Volume Laterality 03/16/2021 10:08 AM YARN SKEINS EXAMINER Narrative [facility] - 03/16/2021 10:23 AM YARN SKEINS EXAMINER Sinus bradycardia Poor R wave progression Abnormal ECG No previous ECGs available Confirmed by Freddie Salgado ([id number]) on 10:23:20 AM Procedure Note Freddie Salgado MD - 03/16/2021Format ting of this note might be different from the original. Sinus bradycardia Poor R wave progression Abnormal ECG No previous ECGs available Confirmed by Freddie Salgado ([id number]) on 10:23:20 AM Gina Tierney MD PN ECG ORDERABLES Performing Organization Address City/State/ZIP Code Phon e Number [facility] [address] [place] [address] US Anesthesia Guided Block (03/16/2021 10:06 AM YARN SKEINS EXAMINER) Anatomical Region Laterality Modality Ultrasound Specimen (Source) Anatomical Location Collection Method / Collectio n Time Received Time / Laterality Volume Narrative 03/16/2021 10:06 AM YARN SKEINS EXAMINER If an Anesthesia block was performed please see the Anesthesia encounter for documentation. ??This procedure was performed and interpreted by the performing provider. ?? Tommy Amador MD RAD US Antibody Screen (03/16/2021 9:52 AM YARN SKEINS EXAMINER) Patholo gist Method Time Signature Antibody Screen Negative 03/16/2021 [facility] Interpretation 11:02 AM YARN SKEINS EXAMINER BLOOD BANK Specimen Anatomical Collection Method / Collection Time Recei leoncio Time (Source) Location / Volume Laterality Blood Venipuncture / 03/16/2021 9:52 03/16/2021 Unknown AM YARN SKEINS EXAMINER 10:02 AM YARN SKEINS EXAMINER Gina Tierney MD LAB_1 Performing Organization Address City/State/ZIP Code Phon e Number [facility] [address] [place] [address] Blood Type (03/16/2021 9:52 AM YARN SKEINS EXAMINER) P athologist Signature ABO O 03/16/2021 [facility] 11:02 AM YARN SKEINS EXAMINER BLOOD BANK RH Negative 03/16/2021 [facility] 11:02 AM YARN SKEINS EXAMINER BLOOD BANK Specimen Anatomical Collection Method / Collection Time Recei leoncio Time (Source) Location / Volume Laterality Blood Venipuncture / 03/16/2021 9:52 03/16/2021 Unknown AM YARN SKEINS EXAMINER 10:02 AM YARN SKEINS EXAMINER Gina Tierney MD LAB_1 Performing Organization Address City/State/ZIP Code Phon e Number [facility] [address] [place] [address] (ABNORMAL) Complete Blood Count-W/Diff (03/16/2021 9:52 AM YARN SKEINS EXAMINER) [facility] Method Time Signature WBC 4.8 3.5 - 10.5 03/16/2021 [facility] x10(9)/L 10:08 AM YARN SKEINS EXAMINER LABORATORY RBC 3.83 (L) 3.90 - 03/16/2021 [facility] 5.03 10:08 AM YARN SKEINS EXAMINER LABORATORY x10(12)/L Hemoglobin 12.1 12.0 - 03/16/2021 [facility] 15.5 g/dL 10:08 AM YARN SKEINS EXAMINER LABORATORY HCT 37.2 34.9 - 03/16/2021 [facility] 44.5 % 10:08 AM YARN SKEINS EXAMINER LABORATORY MCV 97.1 80.0 - 03/16/2021 [facility] 100.0 fL 10:08 AM YARN SKEINS EXAMINER LABORATORY MCH 31.6 27.6 - 03/16/2021 [facility] 33.3 pg 10:08 AM YARN SKEINS EXAMINER LABORATORY MCHC 32.5 31.5 - 03/16/2021 [facility] 35.2 g/dL 10:08 AM YARN SKEINS EXAMINER LABORATORY RDW 13.5 11.9 - 03/16/2021 [facility] 15.5 % 10:08 AM YARN SKEINS EXAMINER LABORATORY Platelets 179 150 - 450 03/16/2021 [facility] x10(9)/L 10:08 AM YARN SKEINS EXAMINER LABORATORY Automated NRBC 0 <=0 /100 03/16/2021 [facility] WBC 10:08 AM [facility] Neutrophil 3.1 1.7 - 7.0 03/16/2021 [facility] Absolute 10(9)/L 10:08 AM [facility] Lymphocyte 1.3 1.0 - 4.8 03/16/2021 [facility] Absolute 10(9)/L 10:08 AM [facility] Monocytes 0.3 0.2 - 0.9 03/16/2021 [facility] Absolute 10(9)/L 10:08 AM [facility] Eosinophil 0.0 0.0 - 0.5 03/16/2021 [facility] Absolute 10(9)/L 10:08 AM [facility] Basophil 0.0 0.0 - 0.3 03/16/2021 [facility] Absolute 10(9)/L 10:08 AM [facility] Immature Gran % 0.2 0.0 - 0.5 03/16/2021 [facility] % 10:08 AM [facility] Specimen Anatomical Collection Method / Collection Time Recei leoncio Time (Source) Location / Volume Laterality Blood Venipuncture / 03/16/2021 9:52 03/16/2021 Unknown AM [facility] 10:02 AM [facility] Gina Tierney MD LAB_1 Performing Organization Address City/[facility] Phon e Number [facility] [address] [place] [address] APTT (ACTIVATED PARTIAL THROMBOPLASTIN TIME (03/16/2021 9:52 AM [facility]) P athologist Signature APTT 26.4 22.5 - 36.5 03/16/2021 [facility] Seconds 10:20 AM [facility] Specimen Anatomical Collection Method / Collection Time Recei leoncio Time (Source) Location / Volume Laterality Blood Venipuncture / 03/16/2021 9:52 03/16/2021 Unknown AM [facility] 10:02 AM [facility] Gina Tierney MD LAB_1 Performing Organization Address City/[facility] Phon e Number [facility] [address] [place] [address] INR/PROTIME (03/16/2021 9:52 AM [facility]) P athologist Signature Protime 13.0 11.8 - 14.6 03/16/2021 [facility] Seconds 10:20 AM [facility] INR 1.0 0.9 - 1.1 03/16/2021 [facility] 10:20 AM [facility] Specimen Anatomical Collection Method / Collection Time Recei leoncio Time (Source) Location / Volume Laterality Blood Venipuncture / 03/16/2021 9:52 03/16/2021 Unknown AM [facility] 10:02 AM [facility] Narrative [facility] - 03/16/2021 10:20 AM [facility] Therapeutic range determined by protocol established by anticoagulation provider. Gina Tierney MD LAB_1 Performing Organization Address [facility] Phon e Number [facility] [address] [place] [address] (ABNORMAL) Basic Metabolic Panel (03/16/2021 9:52 AM [facility]) Analysis Performed At Patho logist Time Signature Sodium 143 136 - 145 03/16/2021 [facility] mmol/L 10:29 AM [facility] Potassium 3.9 3.5 - 5.1 03/16/2021 [facility] mmol/L 10:29 AM [facility] Chloride 116 (H) 98 - 109 03/16/2021 [facility] mmol/L 10:29 AM [facility] CO2 20 20 - 29 03/16/2021 [facility] mmol/L 10:29 AM [facility] Anion Gap 7 7 - 16 03/16/2021 [facility] mmol/L 10:29 AM [facility] Calcium 8.6 8.4 - 10.4 03/16/2021 [facility] mg/dL 10:29 AM [facility] BUN 14 7 - 26 03/16/2021 [facility] mg/dL 10:29 AM [facility] Creatinine 0.94 0.55 - 03/16/2021 [facility] 1.02 mg/dL 10:29 AM [facility] GFR, Estimated >60 >60 03/16/2021 [facility] mL/min/1.7 10:29 AM [facility] 3m2 Glucose 105 (H) 70 - 100 03/16/2021 [facility] mg/dL 10:29 AM [facility] Comment: The given reference range is fo r the fasting state. Non-fasting reference range for glucose is 70 - 180 mg/dL. Specimen Anatomical Collection Method / Collection Time Recei leoncio Time (Source) Location / Volume Laterality Blood Venipuncture / 03/16/2021 9:52 03/16/2021 Unknown AM [facility] 10:01 AM [facility] Gina Tierney MD LAB_1 Performing Organization Address [facility] Phon e Number [facility] [address] [place] [address] POCT urine - Surgery Use Only (03/16/2021 9:40 AM [facility]) [facility] gist Method Time Signature Urine Negative Negative POCT Test - POC Control Line Yes POCT Present, Clear Background - Internal control Cartridge Lot# [id number] POCT Specimen (Source) Anatomical Collection Method Collection Time Re ceived Time Location / / Volume Laterality Urine 03/16/2021 9:40 AM [facility] Gina Tierney MD ET POINT OF CARE TEST ENTER/ EDIT ORDERABLES Performing Organization Address City/State/ZIP Code Phon e Number POCT documented in this encounter Visit Diagnoses Diagnosis Malignant neoplasm of lower lobe of righ t lung (HRC) - Primary Pain Generalized pain Malignant neoplasm of lower lobe of righ t lung (HRC) documented in this encounter Admitting Diagnoses Diagnosis Malignant neoplasm of lower lobe of righ t lung (HRC) documented in this encounter Administered Medications Inactive Administered Medications - up to 3 most recent administrations Medication Order MAR Action Action Date Dose Rate Site acetaminophen (TYLENOL) tablet Given 03/21/2021 1:28 PM [facility] 1,00 0 mg 1,000 mg 1,000 mg, Oral, Q6H (NON-STND), First dose on Fri03/17/21 at 0200, Until Discontinued Given 03/21/2021 7:48 AM [facility] 1,000 mg Given 03/20/2021 8:16 PM [facility] 1,000 mg dextrose (D50) injection 25 g 25 g, [...] capsule 25 mg Given 03/19/2021 1:36 PM [facility] 25 mg 25 mg, Oral, Q4H PRN, Itching, if able to take oral medications, Starting on Fri03/16/21 at 2010, Until Fri03/21/21 at 1620, Give if nalbuphine (NUBAIN) not effective and if able to take oral medications., Post-op Given 03/17/2021 12:23 PM [facility] 25 mg diphenhydrAMINE (BENADRYL) injection 25 mg 25 mg, Intravenous, Q4H PRN, Itching, if unable to take oral medications, Starting on Fri03/16/21 at 2010, Until Fri03/21/21 at 1620, Give if nalbuphine (NUBAIN) not effective and if unable to take oral medications., Pos t-op FLUoxetine (PROZAC) capsule 10 mg Given 03/21/2021 7:48 AM [facility] 10 mg 10 mg, Oral, DAILY, First dose on 03/17/21 at 0800, Until Discontinued Given 03/20/2021 8:15 AM [facility] 10 mg Given 03/19/2021 8:58 AM [facility] 10 mg furosemide (LASIX) tablet 20 mg Given 03/21/2021 7:48 AM [facility] 20 mg 20 mg, Oral, DIURETIC - 0800/1700, First dose on 03/18/21 at 1000, Until Discontinued Given 03/20/2021 5:34 PM [facility] 20 mg Given 03/20/2021 8:15 AM [facility] 20 mg glucagon rDNA (diagnostic) (GLUCAGEN) in [...] (MUCINEX) extended release Given 03/21/2021 7:48 AM [facility] 1,200 mg tablet 1,200 mg 1,200 mg, Oral, BID, First dose on Fri03/16/21 at 2200, Until Discontinued, Tablet should be swallowed whole. Take with a full glass of water. Given 03/20/2021 8:05 PM [facility] 1,200 mg Given 03/20/2021 8:14 AM [facility] 1,200 mg hydrocortisone 2.5 % cream 1 Given 03/20/2021 10:59 PM [facility] 1 Alexandrea lication Back Application 1 Application, Topical, BID PRN, Rash, Itching, Starting on Fri03/16/21 at 2008, Apply topically to skin Hazardous waste disposal required. hydrOXYzine pamoate (VISTARIL) capsule 2 5 mg Given 03/21/2021 6:08 AM [facility] 25 mg 25 mg, Oral, Q6H PRN, Itching, Starting on Fri03/16/21 at 2008, Until Fri03/21/21 at 1620 Given 03/20/2021 10:57 PM [facility] 25 mg Given 03/19/2021 8:17 PM [facility] 25 mg ibuprofen (MOTRIN) tablet 400 mg Given 03/21/2021 11:35 AM [facility] 400 mg 400 mg, Oral, QID, First dose on Fri03/21/21 at 1200, Until Discontinued, Give with food or milk. metoprolol succinate (TOPROL XL) extended Given 03/20/2021 8:05 PM [facility] 100 mg release tablet 100 mg 100 mg, Oral, DAILY, First dose on Fri03/17/21 at 2000, Until Discontinued, Tablet may be split in half, but not crushed. Given 03/19/2021 8:07 PM [facility] 100 mg Given 03/18/2021 8:16 PM [facility] 100 mg metoprolol succinate (TOPROL XL) extended Given 03/18/2021 8:41 AM [facility] 50 mg release tablet 50 mg 50 mg, Oral, DAILY, First dose on Fri03/17/21 at 0800, Until Discontinued, Tablet may be split in half, but not crushed. Given 03/17/2021 8:04 AM [facility] 50 mg NaCl 0.9%-KCl 20 mEq/liter Rate/Dose Change 03/19/2021 11:29 AM 10 mL/hr infusion [facility] Intravenous, at 10 mL/hr, CONTINUOUS, Starting on Fri03/16/21 at 2030, Post-op Rate/Dose Verify 03/19/2021 10:48 AM [facility] 75 mL/hr New Bag Started 03/19/2021 5:15 AM [facility] 75 mL/hr nalbuphine (NUBAIN) 1-2 mg in sodium chloride Given 03/19/19 3:31 AM [facility] 2 mg 0.9 % 1-2 mL syringe 1-2 mg, Intravenous, Q4H PRN, Itching, Starting on Fri03/16/21 at 2010, Notify pharmacy to compound and send dose when needed., Post-op Given 03/18/2021 8:14 PM [facility] 2 mg Given 03/18/2021 2:17 PM [facility] 2 mg naloxone (NARCAN) injection 0.08 mg [...] arrest. Notify MD if naloxone is given. oxidized cellulose (SURGICEL Given 03/16/2021 3:04 PM [facility] 2 Each Wound Site HEMOSTAT) hemostat pad ONCE PRN, Starting on Fri03/16/21 at 1504, Intra-op oxyCODONE (ROXICODONE) immediate release Given 03/21/2021 11:35 AM [facility] 5 mg tablet 5 mg 5 mg, Oral, Q6H PRN, Pain, Severe Pain (pain score 8-10), Starting on Fri03/21/21 at 1105, Until Fri03/21/21 at 1620 sodium chloride 0.9% injection 10-60 mL Given 03/20/2021 8:17 PM [facility] EX[facility] 20 mL 10-60 mL, Intravenous, BID, First [...] ference the Vascular Access Device Users Guide. documented in this encounter Active and Recently Administered Medications Times are shown in [facility]. Scheduled Medication Order 03/19/2021 03/20/2021 03/21/2021 acetaminophen (TYLENOL) tablet 1,000 mg 0320 (Not Give n - Provider: Jan Broderick RN - Reason: Patient/family refused)0858 (Given - Provider: Emani Joe RN)1336 (Given - Provider: Emani Joe RN)2007 (Given - Provider: Syl Sibley) 0219 (Not Given - Provider: JAYDEN BLOES - Reason: Patient/family refused)0815 (Given - Provider: Emani Joe RN)1352 (Given - Provider: Emani Joe RN)2015 (Given - Provider: JAYDEN BOLES) 0319 (Not Given - Provider: JAYDEN BOLES - Reason: Patient/family refused)0748 (Given - Provider: Montserrat Chavez RN)1328 (Given - Provider: Montserrat Chavez, COLETTE) 1,000 mg, Oral, Q6H (NON-STND), First do se on Fri03/17/21 at 0200, Until Discontinued FLUoxetine (PROZAC) capsule 10 mg 0858 (Given - Provider: Russell Joe RN) 0815 (Given - Provider: Emani Joe RN) 0748 (Given - Provider: Montserrat Chavez RN) 10 mg, Oral, DAILY, First dose on Fri03/17/21 at 0800, Until Dis continued furosemide (LASIX) [...] in Manage Orders - Provider: Inpatient Template Epicmd) 50 mg, Oral, DAILY, First dose on Sat at 0800, Until Discontinued, Tablet may be split in half, but not crushed. sodium chloride 0.9% injection 10-60 mL 2016 (Given - Provider: JAYDEN BOLES) 07 (Not Given - Provider: Montserrat zaman RN [...] JAYDEN BOLES) 0217 (Rate/Dose Verify - Provider: JAYDEN GOLDMAN)0345 (New Syringe/Cassette - Provider: JAYDEN BOLES)1319 (Started - Provider: Emani Joe RN)2016 (Rate/Dose Verify - Provider: JAYDEN BOLES) 0320 (Rate/Dose Verify - Provider: JAYDEN BOLES)0602 (Rate/Dose Verify - Provider: JAYDEN BOLES) Epidural, CONTINUOUS, Starting on Fri at 1530, Run epidural solution at 10 ml/hour per infusion pump 2247 (Started - Provider: [facility] JAYDEN HOLLEY) NaCl 0.9%-KCl 20 [...] diphenhydrAMINE (BENADRYL) capsule 25 mg(Linked Group 2) 1764 (Given - Provider: Emani Joe RN) 25 mg, Oral, Q4H PRN, Itching, if able t o take oral medications, Starting on Fri03/16/21 at 2009, Until Fri03/21/21 at 1620, Give if nalbuphine (NUBAIN) not effective and if able to take oral medications., Post-op diphenhydrAMINE (BENADRYL) injection 25 mg(Linked Grou p 2) 9336 (See Alternative - Provider: Emani Joe RN) [...] (TORADOL) injection 15 mg (CANCELED) 901 (G heleneen - Provider: Emani Joe, RN) 2017 (Given - Provider: JAYDEN BOLES) [...] Nausea, Vomi ting, Starting on Fri03/16/21 at 2009, Until Fri03/21/21 at 1620, Post-op oxyCODONE (ROXICODONE) [...] additional info rmation about flushing processes, refere nce the Vascular Access Device Users Guide. Linked [...]
Post-op documented in this encounter Care Teams Event Planning Intern Relationship Specialty Start Date End Date David Choudhury MD PCP - General Family Practice 03/16/21 [address], TIRSO [id number] documented as of this encounter
--- OUTSIDE RECORDS SUMMARY | 2021-11-09 06:15 | XMS_ITS | Encounter Summary ---
:1970 Author Organization [facility] Address [address], [place] [address] Care Team Providers Name Role Phone Theresa Hardy MD Primary Care Provider Reason for Referral Consult/Transfer Care (Routine) - New Request Specialty Diagnoses / Procedures Referred By Contact Refer red To Contact Diagnoses Malignant neoplasm of lower lobe of right lung (HRC) Kian Winters MBBS [address], [place] [address] Referral ID Status Reason Start Date Expiration Date Visits V isits Requested Authorized [id number] New Request 03/01/2021 05/31/2022 1 1 Scheduling Instructions Your provider has recommended an appoint ment with [facility]. You may call [phone] to schedule your appoi ntment. We suggest you call your health insurance company about your coverage an d benefits for this appointment. INE BILLER Reason for Visit Reason Comments CONSULT Consult/Transfer Care (Routine) - New Request Specialty Diagnoses / Procedures Referred By Contact Refer red To Contact Diagnoses Lung mass Darien Helms MD [address] [place], [place] [address] Referral ID Status Reason Start Date Expiration Date Visits V isits Requested Authorized [id number] New Request 02/26/2021 05/28/2022 1 1 Encounter Details Date Type Department Care Team Description 03/01/2021 [facility] Kian Winters D, Malignant neoplasm Encounter [facility] of lower lobe of [facility] [address] right lung (HRC) 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 documented as of this encounter Last Filed Vital Signs Vital Sign Reading Time Taken Comments Blood Pressure 116/74 03/01/2021 12:59 PM MACHINE BILLER Pulse 56 03/01/2021 12:59 PM MACHINE BILLER Temperature - - Respiratory Rate - - Oxygen Saturation - - Inhaled Oxygen Concentration - - Weight 73.5 kg (162 lb) 03/01/2021 12:59 PM MACHINE BILLER Height 152 cm (4' 11.84) 03/01/2021 12:59 PM MACHINE BILLER Body Mass Index 31.8 03/01/2021 12:59 PM MACHINE BILLER documented in this encounter Medications at Time of Discharge Medication Sig Dispensed Refills Start Date End Date estradiol (ESTRACE) 1 MG Take 1 mg by mouth 0 tablet daily. FLUoxetine (PROZAC) 10 MG Take 10 mg by mouth 0 1 02/26/2020 capsule daily. hydrocortisone 2.5 % Apply 1 Application 30 0 2006 cream topically 2 times daily as needed. hydrOXYzine pamoate TAKE ONE CAPSULE BY 0 02/06/ 021 (VISTARIL) 25 MG capsule MOUTH EVERY 6 HOURS NEEDED LORazepam (ATIVAN) 0.5 MG TAKE ONE TABLET BY 0 tablet MOUTH DIRECTED NEEDED metoprolol succinate Take 50 mg by mouth 0 2020 (TOPROL XL) 100 MG 24 daily. Patient is hour release tablet now taking 50 mg once per day metoprolol succinate Take 50 mg by mouth 0 2020 (TOPROL XL) 50 MG 24 hour daily. release tablet ondansetron (ZOFRAN-ODT) DISSOLVE ONE TABLET 0 4 MG disintegrating BY MOUTH EVERY 6 tablet HOURS NEEDED SUMAtriptan (IMITREX) 50 Take 100 mg by mouth 18 3 0 05/30/2003 MG tablet once as needed (Take 1 tablet by mouth once as needed.). topiramate (TOPAMAX) 100 Take 1 tablet by 60 5 04/18 MG tablet mouth 2 times daily. LW Addl Instr:Indicated for: Headache cyclobenzaprine (AKA Take 1 tablet by 20 0 03/23/ 8 03/16/2021 FLEXERIL) 10 MG tablet mouth 3 times daily as needed. LW Comment:Needs Appt within 30 days LW Addl Instr:Indicated for: Muscle Spasms naproxen (AKA NAPROSYN) Take 1 tablet by 60 0 200603/16/2021 500 MG tablet mouth 2 times daily as needed. LW Addl Instr:take with food prochlorPERAZINE Take 1 tablet by 20 0 03/31/2006 (COMPAZINE) 10 MG tablet mouth every 6 hours as needed. LW Addl Instr:Indicated for: Nausea documented as of this encounter Progress Notes Kian Winters MBBS - 03/01/2021 1:00 PM CST Consult note dictated INE BILLER Kian Winters MBBS - 03/01/2021 12:00 AM CST NAME: MARII JOSÉ CSN: [id number] HEMATOLOGY ONCOLOGY CONSULTATION NOTE DATE OF VISIT: 03/01/2021 : 1970 REASON FOR CONSULTATION: Adenocarcinoma of the right lung, clinical stage T1c N0 M0, 1A3. HISTORY OF PRESENTING ILLNESS: Ms. Marii José is a pleasant 50-year-old female with right-sided lung cancer, being evaluated in Oncology Clinic. She had been in her usual state of health, but on 02/02/2021, she developed a syncopal episode while obtaining a pedicure. Shortly prior to the pedicure she had donated blood, but she had been donating blood periodically for several years and had never experienced a similar episode previously. She was evaluated at the [facility] Emergency Room.She was noted to have an elevated D-dimer, and a CT pulmonary angiogram was ordered. There was no pulmonary embolus, but she was noted to have a right lower lobe lung mass. She was referred to Pulmonary Medicine and evaluated by Dr. Darien Helms. She was set up for a CT-guided biopsy of the right lung mass on 02/22/2021. This was consistent with a low-grade adenocarcinoma. A PET scan was obtained on 02/26/2021. She was noted to have a 2.5 x 1.5 cm right lower lobe nodule, intensely hypermetabolicwith an SUV of 11. There were no hypermetabolic thoracic lymph nodes. She did have a few tiny hypermetabolic dermal foci thought to be nonspecific. When seen by me today she is accompanied by her . She has not had any pulmonary symptoms and reports that the diagnosis of lung cancer comes as a shock to her. She has never been a smoker. She denies any dyspnea, chest pain, cough, pleurisy or hemoptysis. In general, her appetite is good, and her weight has been stable. No headache or bone pain. No recent fevers or infectious-type symptoms. Denies any unusual bleeding, specifically no epistaxis, gum bleeding, or blood in the urine or stool. PAST HISTORY: 1. Migraines. 2. Ureteric stone, status post lithotripsy. 3. Appendectomy in December 2020. MEDICATIONS: She is on fluoxetine, metoprolol, sumatriptan, and topiramate. SOCIAL HISTORY: Does not smoke and has never smoked. Lives with in [place]. They have 3 children. 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. FAMILY HISTORY: Her father had developed non-Hodgkin lymphoma. Her paternal uncle who was a smoker had developed lung cancer. PHYSICAL EXAM: GENERAL: Pleasant 50-year-old female, appears well, does not appear to be in acute medical distress. VITAL SIGNS: Weight 162 pounds. Pulse 56 per minute. Blood pressure 116/74. HEENT: No scleral icterus. No oral thrush. LYMPH: No palpable lymph nodes in the neck or axilla. HEART: Regular rate and rhythm, no rub or gallop. LUNGS: Bilateral vesicular breath sounds, no rales. ABDOMEN: No abdominal tenderness, no hepatosplenomegaly. EXTREMITIES: No leg edema. PSYCH: She is alert and oriented. PET scan and CT pulmonary angiogram as discussed above. I personally reviewed the PET images. LABS: None drawn today. Her CBC from 02/22/2021 revealed a white count of 4.5, hemoglobin 12, platelets 186,000 and an ANC of 2.5. ASSESSMENT AND PLAN: This is a 50-year-old female with a low-grade carcinoma of the right lower lobeof the lung, being evaluated in Oncology Clinic. Her ECOG performance status is 0. Low-grade carcinoma of the right lower lobe of the lung, clinical stage IA3, T1c N0 M0: As outlined above, she presented with a syncopal episode shortly after a blood donation, and on further evaluation in the emergency room, was found on a CT pulmonary angiogram to have a right lower lobe lung mass which was biopsied on 02/22/2021, consistent with a low-grade adenocarcinoma. Her PET scan on 02/28/2021 revealed a 2.5 cm hypermetabolic lung mass in the right lower lobe, with no metabolic adenopathy and no distant metastases, with a clinical stage being 1A3, T1c N0 M0. I had a lengthy discussion with her and her who accompanied her. We reviewed the diagnosis, staging, natural history, prognosis, and treatment options. We did review that she does appear to have a very early stage and a low-grade carcinoma of the right lower lobe, most likely an adenocarcinoma. 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 For early stage lung cancers, in asymptomatic patients, we typically do not perform MRI scans of the brain, this would be in accordance with the NCCN guidelines, and I do not believe she needs to have brain imaging performed as she has no PRINCIPLE SOFTWARE ENGINEER symptoms. In terms of management, I did review that options would include surgical resection in the form of a lobectomy or stereotactic radiation. In someone who is young and otherwise healthy, we would favor a surgery approach, and as such, I would like to refer her to one of our thoracic surgeons for a consultation. I did review that it is very likely that she will undergo a right lower lobectomy, along withmediastinal lymph node sampling at the time of surgery. I did review with her that I would like to bring her back to my clinic about 2-3 weeks after surgery to review the final pathology report. As long as there is no evidence of upstaging, and as long as there is no evidence of lymph node involvementat the time of surgery, I suspect she will almost certainly not require any adjuvant chemotherapy, immunotherapy, or targeted therapy, but nevertheless, we will make the final decision once the surgical pathology results are available. I also did review the plan going forward. After she completes surgery, provided she does not requireany adjuvant therapy, I would probably favor obtaining a baseline CT scan about 3 months after her surgery. Subsequently we could obtain CT scans of her chest once every 6 months for the 1st couple of years and then annually thereafter. She and her had several excellent questions which I answered to the best of my ability. In terms of followup, we will request a Thoracic Surgery consultation. I have not yet arranged for afollowup in my clinic, but I have asked her to contact me once the date for the surgery has been set, and I will bring her back to clinic about 2-4 weeks after surgery to review the final pathology results and determine the plan of care going forward. All these recommendations were reviewed at length, extensive counseling was provided. JUANCARLOS DOWLING/CHERRY /[id number] cc: DARIEN HELMS MD [address] [place] [address] INE BILLER documented in this encounter Plan of Treatment Scheduled Referrals Name Type Priority Associated Diagnoses Order S chedule Cardiovascular Surgery Referral Routine Malignant neoplasm of Ordered: 03/01/2021 Consult-Adults lower lobe of right lung (HRC) documented as of this encounter Visit Diagnoses Diagnosis Malignant neoplasm of lower lobe of righ t lung (HRC) - Primary documented in this encounter Care Teams Accountant Manager Relationship Specialty Start Date End Date Theresa Hardy MD PCP - General 05/22/10 03/15/21 [id number] [place] [id number] documented as of this encounter
--- OUTSIDE RECORDS SUMMARY | 2021-11-09 06:15 | XMS_ITS | Encounter Summary ---
:1970 Author Organization [facility] 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 documented in this encounter Results Wet Prep (07/03/2006 1:22 PM CDT) P athologist Signature Wet Prep SEE TEXT HP CONVERSION Comment: Patient: MARII JOSÉ Wet Prep @ ?Collected: ??[id number] ??1322 Source: Vaginal ? Processed: ??[id number] ??1322 ? V Final Report ------ Few WBCs seen Many epithelial cells seen No Trichomonas seen No yeast seen No clue cells seen @ = WET PREP Performed at ??[address] [place], [place] ??[address] Specimen (Source) Anatomical Collection Method Collection Time Re ceived Time Location / / Volume Laterality 07/03/2006 1:22 PM CDT Liudmila Beatty PA-C LAB_1 Performing Organization Address City/State/ZIP Code Phon e Number HP CONVERSION documented in this encounter Visit Diagnoses Not on filedocumented in this encounter Care Teams Environmental Resource Specialist Relationship Specialty Start Date End Date Theresa Hardy MD PCP - General 05/22/10 03/15/21 [address] [place] [address] documented as of this encounter
--- OUTSIDE RECORDS SUMMARY | 2021-11-09 06:15 | XMS_ITS | Encounter Summary ---
:1970 Author Organization [facility] Address [address], [place] [address] Care Team Providers Name Role Phone Theresa Hardy MD Primary Care Provider Reason for Referral Consult/Transfer Care (Routine) - New Request Specialty Diagnoses / Procedures Referred By Contact Refer red To Contact Diagnoses Lung mass Greyson Ovalle MD [address] [place], [place] [address] Referral ID Status Reason Start Date Expiration Date Visits V isits Requested Authorized [id number] New Request 02/26/2021 05/28/2022 1 1 Scheduling Instructions Your provider has recommended an appoint ment with [facility]. You may call [phone] [facility]. We suggest you call your health insurance company about your coverage and benefits for this appointment. LESS STORE MANAGER Procedure/Equipment (Routine) - Incomplete Specialty Diagnoses / Procedures Referred By Contact Refer red To Contact Diagnoses Greyson Ludwig MD Procedures NM PET/CT Skull Base To Mid Thigh [address] [place], [place] [address] Referral ID Status Reason Start Date Expiration Date Visits V isits Requested Authorized [id number] Incomplete 02/26/2021 05/28/2022 6 6 LESS STORE MANAGER Reason for Visit Reason Comments Follow-up Encounter Details Date Type Department Care Team Description 02/26/2021 Phone Visit Specialty Center [address] Greyson Ovalle, Lung mass (Primary Pulmonary Medicine MD Dx) [address] [facility] [address] [place] [address] [phone] (Wo rk) Social History Tobacco Use Types [...] at Date Recorded Female 02/21/2021 8:36 PM WIRELESS STORE MANAGER documented as of this encounter Last Filed Vital Signs Vital Sign Reading Time Taken Comments Blood Pressure - - Pulse - - Temperature 36.8 ??C (98.2 ??F) 02/26/2021 11:08 AM patient reported WIRELESS STORE MANAGER Respiratory Rate - - Oxygen Saturation - - Inhaled Oxygen Concentration - - Weight 72.6 kg (160 lb) 02/26/2021 11:08 AM patient rep orted WIRELESS STORE MANAGER Height 152.4 cm (5') 02/26/2021 11:08 AM patient repo rted WIRELESS STORE MANAGER Body Mass Index 31.25 02/26/2021 11:08 AM WIRELESS STORE MANAGER documented in this encounter Progress Notes Greyson Ovalle MD - 02/26/2021 12:00 AM CST NAME: MARII JOSÉ [facility]: [id number] CLINIC NOTE DATE OF SERVICE: 02/26/2021 : 1970 CHIEF CONCERN: Lung mass, status post biopsy. SUBJECTIVE: Marii José is a very pleasant 50-year-old woman who I met a couple of weeks ago, at that time, joined by her , Abdoulaye. They and I speak by phone today; Abdoulaye is at work. Please recall in brief that she was in her usual state of health until February 02, at which pointshe had a syncopal event while getting a pedicure. She had an elevated D-dimer and, hence, had a CT PE study which showed no PE but did show a right lower lobe lung mass. Please recall that she has no particularly notable exposures, is a never-smoker. She did fairly wellwith the biopsy. PHYSICAL EXAM: Sounds well by phone. PATHOLOGY: Low-grade adenocarcinoma. ASSESSMENT/PLAN: Marii José is a very pleasant 50-year-old woman with incidentally noted lung mass after a syncopal event, this in the context of a never smoker. Unfortunately, this has now been confirmed to be lung cancer, specifically adenocarcinoma. Marii and I had a good conversation about this today. Understandably, she is a bit overwhelmed by all this. We talked about next steps including PET scan and referral to Oncology. I discussed the fact that nothing definitive can be stated, but that I am hopeful that this is early stage disease and that treatment may be surgical. We discussed briefly what the next month or 2 might look like, again hoping that the PET scan looks okay. I did say that I am available if she has any further questions about any of this while waiting to meet with the oncologist, she is encouraged to call us at any time. TT: 30. MD JANICE MCCULLOUGH/CHERRY /[id number] LESS STORE MANAGER documented in this encounter Plan of Treatment Scheduled Referrals Name Type Priority Associated Diagnoses Order S chedule Oncology/Hematology Referral Routine Lung mass Ordered: 02/26/2021 Consult Adult documented as of this encounter Results NM PET/CT Skull Base To Mid Thigh (02/28/2021 3:54 PM WIRELESS STORE MANAGER) Anatomical Region Laterality Modality Nuclear Medicine Specimen (Source) Anatomical Collection Method Collection Time Re ceived Time Location / / Volume Laterality 02/28/2021 2:13 PM WIRELESS STORE MANAGER Impressions 02/28/2021 4:25 PM WIRELESS STORE MANAGER TECHNIQUE: Images were obtained from the skull base through the proximal thighs. Low-dose CT was obtained for attenuation correction and anatomic correlation. RADIOPHARMACEUTICAL: 10.5 mCi Fluorine-1 8 Fluorodeoxyglucose. BLOOD GLUCOSE: ??82 mg/dl ? COMPARISON: No prior PET. Outside the est 02/02/2021. CLINICAL HISTORY: Right lung adenocarcin fahad. Initial staging. FINDINGS: Physiologic uptake is noted wi thin the base of the brain, tongue, salivary glands, larynx, heart, renal collecting system, bladder and bowel. SKIN: Few tiny hypermetabolic dermal foc i should be small foci of infection/inflammation. HEAD/NECK: No suspicious hypermetabolic activity. CHEST: Approximately 2.5 x 1.5 cm right lower lobe nodule, representing known adenocarcinoma, is intensely hypermetabolic with SUV max 11.0. No abnormal hypermetabolic thoracic lymph nodes. No pleural effusion. ABDOMEN/PELVIS: No suspicious hypermetab olic activity. Tiny focus of activity corresponding to fat just deep to the umbilicus, without CT correlate, likely small focus of inflammation such as fat necros is. Tiny nonobstructing calyceal stones lower right kidney and upper left kidney. Intrauterine device. Presumed appendectomy. Solid organs otherwise have an unremarkable noncontrast appearance. MUSCULOSKELETAL: No suspicious hypermeta bolic activity. IMPRESSION: Known right lower lobe adeno carcinoma. No findings for metastatic disease. Procedure Note Jan Awan MD - 02/28/2021Formatt ing of this note might be different from the original. IMPRESSION TECHNIQUE: Images were obtained from the skull base through the proximal thighs. Low-dose CT was obtained for attenuation correction and anatomic correlation. RADIOPHARMACEUTICAL: 10.5 mCi Fluorine-1 8 Fluorodeoxyglucose. BLOOD GLUCOSE: 82 mg/dl COMPARISON: No prior PET. Outside the est 02/02/2021. CLINICAL HISTORY: Right lung adenocarcin fahad. Initial staging. FINDINGS: Physiologic uptake is noted wi thin the base of the brain, tongue, salivary glands, larynx, heart, renal collecting system, bladder and bowel. SKIN: Few tiny hypermetabolic dermal foc i should be small foci of infection/inflammation. HEAD/NECK: No suspicious hypermetabolic activity. CHEST: Approximately 2.5 x 1.5 cm right lower lobe nodule, representing known adenocarcinoma, is intensely hypermetabolic with SUV max 11.0. No abnormal hypermetabolic thoracic lymph nodes. No pleural effusion. ABDOMEN/PELVIS: No suspicious hypermetab olic activity. Tiny focus of activity corresponding to fat just deep to the umbilicus, without CT correlate, likely small focus of inflammation such as fat necrosis. Tiny nonobstructing calyceal stones lower rig ht kidney and upper left kidney. Intrauterine device. Presumed appendectomy. Solid organs otherwise have an unremarkable noncontrast appearance. MUSCULOSKELETAL: No suspicious hypermeta bolic activity. IMPRESSION: Known right lower lobe adeno carcinoma. No findings for metastatic disease. Greyson Ovalle MD RAD NM documented in this encounter Visit Diagnoses Diagnosis Lung mass - Primary Swelling, mass, or lump in chest Lung mass Swelling, mass, or lump in chest documented in this encounter Care Teams Mathematics Academic Chair Relationship Specialty Start Date End Date Theresa Hardy MD PCP - General 05/22/10 03/15/21 [address] [place] [address] documented as of this encounter
--- OUTSIDE RECORDS SUMMARY | 2021-11-09 06:15 | XMS_ITS | Encounter Summary ---
:1970 [facility] Organization [facility] Address [address] [address] Care Team Providers Name Role Phone Theresa Hardy MD Primary Care Provider Reason for Visit Reason Comments Other Encounter Details Date Type Department Care Team Description 01/14/2007 Telephone [facility], Message Other [address] [place] [address] Social History Tobacco Use Types Packs/Day Years [...] at Date Recorded Female 02/21/2021 8:36 PM NURSING HOME DIRECTOR documented as of this encounter Progress Notes Center, Message - 01/14/2007 8:36 AM CST Phone Note filed by BoomBang at 06/06/10932 Author: BoomBang Service: (none) Author Type: (none) Filed: 06/06/10932 Note Time: 01/14/07835 Status: Signed Smocking Machine Operator: BoomBang Prescription Refill Please provide enough refills to last until patient's next visit. Comment:-Appt Apr 06 Pharmacy Seq #:-[phone] [facility] Street or City:-[place] Clinician Name:-Domitila Hardy Drug Name/Strength:-Imitrex 50mg tab Sig: Dose/Route/Freq:-take one tab as needed Quantity & Last Fill:-50 03/04/06 Created on 14Jan2007 8:36am by ISRAEL VAZQUEZ On 14Jan2007 2:48pm LINDSEY HELM wrote: Renewed medication per medication refill protocol. ING HOME DIRECTOR documented in this encounter Plan of Treatment Not on filedocumented as of this encounter Visit Diagnoses Not on filedocumented in this encounter Care Teams Technical Information Specialist Relationship Specialty Start Date End Date Theresa Hardy MD PCP - General 05/22/10 03/15/21 [address] [place] [address] documented as of this encounter
--- OUTSIDE RECORDS SUMMARY | 2021-11-09 06:15 | XMS_ITS | Encounter Summary ---
:1970 Author Organization [facility] Address [address] [address] Care Team Providers Name Role Phone Theresa Hardy MD Primary Care Provider Encounter Details Date Type Department Care Team Description 02/20/2021 Notes/Orders [facility] Theresa Hardy Co ntact with and Up (suspected) exposure [address] [facility] [address] [place] [address] [phone] (Wo rk) Social History Tobacco Use Types [...] at Date Recorded Female 02/21/2021 8:36 PM SENIOR OPERATOR documented as of this encounter Plan of Treatment Not on filedocumented as of this encounter Results Asymptomatic - 2019 Novel Coronavirus (COVID-19) (02/20/2021 4:34 PM SENIOR OPERATOR) [facility] gist Method Time Signature COVID-19 Not Not 02/21/2021 [facility] Interpretation Detected Detected 10:52 AM CENTRAL LAB SENIOR OPERATOR Source Nares, left 02/21/2021 [facility] and right 10:52 AM CENTRAL LAB SENIOR OPERATOR Specimen Anatomical Collection Method Collection Time Receive d Time (Source) Location / / Volume Laterality Swab (Source ENTIRE ANTERIOR Non-blood 02/20/2021 4:34 PM 2021 4:43 Required) NARIS / Unknown Collection / SENIOR OPERATOR PM SENIOR OPERATOR Unknown Narrative [facility] - 02/21/2021 10:52 AM SENIOR OPERATOR Test performed by Vice President Payer Mediated Amplification. TMA has been shown to be equivalent to commercial real-time PCR t ests. This test has been authorized by the FDA under an Emergency Use Authorization (EUA) for use by authorized laboratories. Theresa Hardy MD LAB_1 Performing Organization Address City/State/ZIP Code Phon e Number [facility] [address] [address] documented in this encounter Visit Diagnoses Diagnosis Contact with and (suspected) exposure to covid-19 documented in this encounter Care Teams Patient Case Manager Relationship Specialty Start Date End Date Theresa Hardy MD PCP - General 05/22/10 03/15/21 [address] [place] [address] documented as of this encounter
--- OUTSIDE RECORDS SUMMARY | 2021-11-09 06:15 | XMS_ITS | Encounter Summary ---
:1970 Author Organization [facility] Address [address] [place] [address] Care Team Providers Name Role Phone Theresa Hardy MD Primary Care Provider Encounter Details Date Type Department Care Team Description 10/19/2008 PN Conversion Only NANNETTE CONVERSION [address] [place] [address] Social History Tobacco Use Types Packs/Day Years [...] at Date Recorded Female 02/21/2021 8:36 PM WINDOW SHADE CUTTER AND MOUNTER documented as of this encounter Plan of Treatment Not on filedocumented as of this encounter Visit Diagnoses Not on filedocumented in this encounter Care Teams Tieing Machine Operator Relationship Specialty Start Date End Date Theresa Hardy MD PCP - General 05/22/10 03/15/21 [address] [place] [address] documented as of this encounter
--- OUTSIDE RECORDS SUMMARY | 2021-11-09 06:15 | XMS_ITS | Encounter Summary ---
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
--- OUTSIDE RECORDS SUMMARY | 2021-11-09 06:15 | XMS_ITS | Encounter Summary ---
:1970 Author Organization [facility] Address [address], [place] [address] Care Team Providers Name Role Phone Theresa Hardy MD Primary Care Provider Reason for Visit Reason Comments Procedure Encounter Details Date Type Department Care Team Description 02/15/2021 Telephone Specialty Center [address] Stacia Ovalle MD Procedure Pulmonary Medicine [address] [facility] [address] [place] [address] [place], [place] [address] [phone] Social History Tobacco Use Types Packs/Day Years [...] Date Recorded Female 02/21/2021 8:36 PM MANAGER ENROLLMENT documented as of this encounter Nursing Notes Jenny Schaeffer RN - 02/15/2021 12:17 PM CST Pt called back and was given the appt dates and times. The COVID test appt and PFT appt worked for her, so nothing was rescheduled. She will call next week if she has any questions prior to the biopsy. GER ENROLLMENT Kerri Lu RN - 02/15/2021 11:13 AM CST Left message for pt to call office. Pt is scheduled for CT needle bx 02/22/21 at 12N. Pt was given prep but will need date, time and location for ct needle. Pt will need date, time and location for Covid testing. Pt will need time, date and location for PFT (prior to ct needle) Changed Covid and PFT so pt did not have to make so many trip to [facility]. GER ENROLLMENT documented in this encounter Plan of Treatment Not on filedocumented as of this encounter Visit Diagnoses Not on filedocumented in this encounter Care Teams Consulting Psychologist Relationship Specialty Start Date End Date Theresa Hardy MD PCP - General 05/22/10 03/15/21 [address] [place] [place] [address] documented as of this encounter
--- OUTSIDE RECORDS SUMMARY | 2021-11-09 06:15 | XMS_ITS | Encounter Summary ---
:1970 Author Organization [facility] Address [address] [address] Care Team Providers Name Role Phone Theresa Hardy MD Primary Care Provider Encounter Details Date Type Department Care Team Description 03/13/2021 Lab Visit [facility] Malignant neoplasm of lower [address] lobe of right lung (HRC) [place] [address] Social History Tobacco Use Types Packs/Day Years [...] at Date Recorded Female 02/21/2021 8:36 PM DRUM MAKER documented as of this encounter Plan of Treatment Not on filedocumented as of this encounter Procedures Procedure Name Priority Date/Time Associated Comments Diagnosis 2019 NOVEL Routine 03/13/2021 4:38 PM Malignant neoplasm Res ults for this CORONAVIRUS DRUM MAKER of lower lobe of procedure a re in right lung (HRC) the results section. documented in this encounter Results 2019 Novel Coronavirus (COVID-19) (03/13/2021 4:38 PM DRUM MAKER) [facility] Method Time Signature COVID-19 Not Not 03/14/2021 [facility] Interpretation Detected Detected 10:12 AM CENTRAL LAB DRUM MAKER Source Nares, left 03/14/2021 [facility] and right 10:12 AM CENTRAL LAB DRUM MAKER Specimen Anatomical Collection Method Collection Time Receive d Time (Source) Location / / Volume Laterality Swab (Source ENTIRE ANTERIOR Non-blood 03/13/2021 4:38 PM 2021 4:38 Required) NARIS / Unknown Collection / DRUM MAKER PM DRUM MAKER Unknown Narrative [facility] - 03/14/2021 10:12 AM DRUM MAKER Tested by Polymerase Chain Reaction (PCR ), Rhit-mediated amplification (TMA), or another nucleic acid amplifica tion test (NAAT). Pedro Hull MD LAB_1 Performing Organization Address City/State/ZIP Code Phon e Number [facility] [address] [address] documented in this encounter Visit Diagnoses Diagnosis Malignant neoplasm of lower lobe of righ t lung (HRC) documented in this encounter Care Teams Metal Molder Relationship Specialty Start Date End Date Theresa Hardy MD PCP - General 05/22/10 03/15/21 [address] [place] [address] documented as of this encounter
--- OUTSIDE RECORDS SUMMARY | 2021-11-09 06:15 | XMS_ITS | Encounter Summary ---
:1970 [facility] Address [address], [place] [address] Care Team Providers Name Role Phone Theresa Hardy MD Primary Care Provider Reason for Visit Reason Comments Other Encounter Details Date Type Department Care Team Description 09/10/2006 Telephone [facility] Surinder De Paz PAOpalC Other [address] [place] [address] [phone] (Wo rk) Social History Tobacco Use Types [...] at Date Recorded Female 02/21/2021 8:36 PM ELECTRICAL WIRER documented as of this encounter Progress Notes [facility], Message - 09/10/2006 12:14 PM CDT Phone Note filed by [employer] at 06/06/10 0101 Author: Message Center Service: (none) Author Type: (none) Filed: 06/06/10 0101 Note Time: 09/10/06 1214 Status: Signed Nutrition Club Ambassador: Message Center Front Line Sx Call Caller Name/Relationship:christopher Primary Harmonica Maker:strong Symptom or request?us 09/01 indicated kidney stone--what sx should she have? Is appointment scheduled & when?n Gospel Singer:christopher Best call back number:[phone] c Best time to call back:today Is it OK to leave a confidential message on this voicemail?y *ECODE~PNSX2 Created on 10Sep2006 12:14pm by CHAPO RUELAS On 10Sep2006 12:55pm JESSICA POST wrote: MESSAGE TO CARE TEAM NAME OF CALLER:Pt NAME OF CLINICIAN:Surinder Hua MESSAGE:Pt calling today with several issues: 1) Pt was seen 08-19-06 and U/S done 09-01-06 that showed rt kidney stone that is too big to pass. Pt has abd scan scheduled for 09-15-06. Meanwhile she continues to have the rt flank pain. Did sleep well as of last night. No fever, no blood in urine but saw cloudiness yesterday one time. Pt is wondering about the one kidney stone , what major sx should she be aware of? Is this stone floating around or has it filled the kidney up? What potential problems she should look for? (report says that 6-7 mm calculus rt intrarenal with no obstruction). Pt concerned if obstruction can happen? Wants to know recourse. 2) She is on Topamax for migraines for past several years. Pt is thinking that topamax is cause of the stones (had aunt with same situation). So pt is trying to wean down on the topamax. She started on Friday cutting back from 100mg bid to 100mg in am and 50 mg at night. Is wondering what suggested titration schedule she should follow?? Should she go 50mg bid next week. What suggestions? 3) Pain concerns. Right now she is not using anything but after last night , this could be concern. Could rx for pain med be called in?? In past (when she had c diff) was vicodin which helped. She had tried something with codeine that really upset her stomach. Callback requested. PS--son has hx of renal tubular acidosis. [phone] CALL BACK PHONE OR CELL PHONE:[phone] cellph BEST TIME TO CALL BACK: IS IT OK TO LEAVE A CONFIDENTIAL MESSAGE ON THIS VOICEMAIL? *ECODE~PNMSG On 10Sep2006 3:14pm SURINDER HUA wrote: I left a message. Can we arrange that CT scan stone protocol sooner? Tomorrow? Rx sent for Vicodin. Routine precautions. Okay to try tapering off Topamax, though we will have to monitor headaches. Mentioned worsening signs to look for. Acknowledged by SURINDER HUA on 3:14pm On 10Sep2006 3:24pm CAROL ONEILL wrote: Appointment rescheduled for tomorrow am at 8:00. Patient contacted and she will be there. Also would like medicaton for pain. Acknowledged by CAROL ONEILL on 3:24pm On 10Sep2006 3:29pm SURINDER HUA wrote: Rx sent. Acknowledged by SURINDER HUA on 3:29pm TRICAL WIRER documented in this encounter Plan of Treatment Not on filedocumented as of this encounter Visit Diagnoses Not on filedocumented in this encounter Care Teams Grappler Relationship Specialty Start Date End Date Theresa Hardy MD PCP - General 05/22/10 03/15/21 [address] [place] [address] documented as of this encounter
--- OUTSIDE RECORDS SUMMARY | 2021-11-09 06:15 | XMS_ITS | Encounter Summary ---
:1970 Author Organization Formerly [facility], [facility] Address [address] [place] [address] Care Team Providers Name Role Phone Theresa Hardy MD Primary Care Provider Reason for Referral Procedure/Equipment (Routine) - Incomplete Specialty Diagnoses / Procedures Referred By Contact Refer red To Contact Diagnoses Lung mass Xochitl Fuentes MD Procedures CT Bx Lung District Superintendent [address] [facility] [address] [place], [place] [address] Referral ID Status Reason Start Date Expiration Date Visits V isits Requested Authorized [id number] Incomplete 02/15/2021 05/17/2022 1 1 OPEDIC DENTIST Reason for Visit Reason Comments CONSULT Encounter Details Date Type Department Care Team Description 02/15/2021 Office Visit Specialty Center [address] Greyson Ovalle, Lung mass (Primary Pulmonary Medicine MD Dx) [address] [facility] [address] [place] S [address] [place], [place] [phone] (Wo rk) Social History Tobacco Use Types [...] at Date Recorded Female 02/21/2021 8:36 PM ORTHOPEDIC DENTIST documented as of this encounter Last Filed Vital Signs Vital Sign Reading Time Taken Comments Blood Pressure - - Pulse 71 02/15/2021 9:02 AM ORTHOPEDIC DENTIST Temperature - - Respiratory Rate - - Oxygen Saturation 98% 02/15/2021 9:02 AM ORTHOPEDIC DENTIST Inhaled Oxygen Concentration - - Weight 75 kg (165 lb 6.4 oz) 02/15/2021 9:02 AM ORTHOPEDIC DENTIST Height 152.4 cm (5') 02/15/2021 9:02 AM ORTHOPEDIC DENTIST Body Mass Index 32.3 02/15/2021 9:02 AM ORTHOPEDIC DENTIST documented in this encounter Patient Instructions Patient InstructionsGreyson Ovalle MD - 02/15/2021 9:00 AM CST - it was nice meeting you both today - as we discussed, I can't tell exactly what this spot / nodule / abnormal area is, but I think we should figure it out - the way to do this is with a biopsy - I did review with one of my colleagues (Dr. Fuentes) who does the biopsies with the needle - we'll talk again afterwards to review results - please call with any new questions or concerns OPEDIC DENTIST documented in this encounter Progress Notes Kerri Lares RN - 02/15/2021 9:00 AM ORTHOPEDIC DENTIST Addended by: KERRI LARES on: 02/15/2021 10:43 AM Modules accepted: Orders, SmartSet OPEDIC DENTIST Greyson Ovalle MD - 02/15/2021 9:00 AM CST PULMONARY MEDICINE INITIAL CLINIC NOTE Chief Concern: Lung mass HPI Fifi Kasper is a very pleasant 50 year old woman joined by her Abdoulaye to discuss the above. She was in her usual state of health until February 02, at which point she had a syncopal event while getting a pedicure. At she was found to have an elevated d-dimer and was taken to ER, where she had a CT PE study that was without PE but did show a RLL mass. She was told this could be cancer, and to follow up with a lung doctor. She is a never-smoker. She is originally from [place]; [place] 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 No known family history of lung disease. No past medical history on file. No past surgical history on file. Allergies for Fifi Kasper Status Agent Date Noted Reaction Type Active AMOXICILLIN-POT CLAVULANATE 04/23/2017 Diarrhea Active DOXYCYCLINE 04/23/2017 Other, see comments Gastrointestinal Active METRONIDAZOLE 03/18/2005 Allergy Active OTHER 06/13/2003 Unspecified Outpatient Medications Prior to Visit Medication Sig Dispense Refill ??? cyclobenzaprine (AKA FLEXERIL) 10 MG tablet Take 1 tablet by mouth 3 times daily as needed. LW Comment:Needs Appt within 30 days LW Addl Instr:Indicated for: Muscle Spasms (Patient not taking: Reported on 02/15/2021) 20 ??? estradiol (ESTRACE) 1 MG tablet Take 1 mg by mouth daily. ??? FLUoxetine (PROZAC) 10 MG capsule Take 10 mg by mouth daily. ??? HYDROcodone-acetaminophen (VICODIN) 5-500 MG tablet Take 1-2 tablets by mouth every 4 hours as needed. LW Addl Instr:Maximum of 8 tablets/24 hours. (Patient not taking: Reported on 02/15/2021) 20 ??? hydrocortisone 2.5 % cream Apply 1 Application topically 2 times daily as needed. 30 ??? hydrOXYzine pamoate (VISTARIL) 25 MG capsule TAKE ONE CAPSULE BY MOUTH EVERY 6 HOURS NEEDED ??? hyoscyamine (AKA LEVSIN/SL) 0.[address] 1-2 tablets under the tongue every 4 hours as needed. LW Addl Instr:Indicated for: GI Tract Spasms (Patient not taking: Reported on 02/15/2021) 30 ??? LORazepam (ATIVAN) 0.5 MG tablet TAKE [...] Addl Instr:take with food (Patient not taking: Reported on 02/15/2021) 60 ??? norgestrel-ethinyl estradiol (LO/OVRAL, 28,) 0.3-30 MG-MCG tablet Take 1 tablet by mouth daily (every 24 hours). LW Comment:Mar 2007 sonja LW Addl Instr:Follow package directions. (Patient not taking: Reported on 02/15/2021) 84 ??? ondansetron (ZOFRAN-ODT) 4 MG disintegrating tablet DISSOLVE ONE TABLET BY MOUTH EVERY 6 HOURS NEEDED ??? prochlorPERAZINE (COMPAZINE) 10 MG tablet Take 1 tablet by mouth every 6 hours as needed. LW Addl Instr:Indicated for: Nausea 20 ??? SUMAtriptan (IMITREX) 50 MG tablet Take 100 mg by mouth once as needed (Take 1 tablet by mouth once as needed.). (Patient taking differently: Take 100 mg by mouth once as needed (Take 1 tablet by mouth once as needed.).) 18 3 ??? topiramate (TOPAMAX) 100 MG tablet Take 1 tablet by mouth 2 times daily. LW Addl Instr:Indicatedfor: Headache 60 5 ??? unknown medication Indications: PN: (Patient not taking: Reported on 02/15/2021) No facility-administered medications prior to visit. Social History Socioeconomic History ??? Marital status: Spouse name: Not on file ??? Number of children: Not on file ??? Years of education: Not on file ??? Highest education level: Not on file Occupational History ??? Not on file Tobacco Use ??? Smoking status: Never Smoker ??? Smokeless tobacco: Never Used Vaping Use ??? Vaping Use: Never used Substance and Sexual Activity ??? Alcohol use: Not Currently Comment: rare usage ??? Drug use: Not on file ??? Sexual activity: Not on file Other Topics Concern ??? Not on file Social History Narrative ??? Not on file Social Determinants of Health Financial Resource Strain: ??? Difficulty of Paying Living Expenses: Not on file Food Insecurity: ??? Worried About Running Out of Food in the Last Year: Not on file ??? Ran Out of Food in the Last Year: Not on file Transportation Needs: ??? Lack of Transportation (Medical): Not on file ??? Lack of Transportation (Non-Medical): Not on file Physical Activity: ??? Days of Exercise per Week: Not on file ??? Minutes of Exercise per Session: Not on file Intimate Partner Violence: ??? Fear of Current or Ex-Partner: Not on file ??? Emotionally Abused: Not on file ??? Physically Abused: Not on file ??? Sexually Abused: Not on file Housing Stability: ??? Unable to Pay for Housing in the Last Year: Not on file ??? Number of Places Lived in the Last Year: Not on file ??? Unstable Housing in the Last Year: Not on file No family history on file. ROS: A comprehensive ROS was obtained and aside from as noted in the HPI was unremarkable. Vitals: BP 124/80 (BP Location: Left Arm, BP Cuff Size: Adult Regular) Pulse (!) 116 Ht 4' 11.25 (1.505m) Wt 128 lb (58.1 kg) SpO2 99% BMI 25.64 kg/m?? @[id number]@ General appearance: alert, cooperative, no distress, appears stated age Head: Normocephalic, without obvious abnormality Eyes: negative Neurologic: Grossly normal Imaging: CT reviewed personally. There is a RLL nodule / mass extending towards or into the RUL. I do not see any associated adenopathy. Assessment and Plan: Fifi Kasper is a very pleasant 50 year old woman with a syncopal event and a RLL mass noted incidentally as part of that evaluation. It is unclear what this is - malignancy, infection, prior injury from infection, organizing pneumonia, etc but I think we should figure it out. Discussed CT needle biopsy including risks, also reviewedwith my colleague Dr. Fuentes who thinks this may be challenging but is worth moving forward with. Reviewed images with Yoan as well. Will plan on revisiting with Yoan when we have a results. Does not need a fiducial. If this is malignant, would then get PFTs for a baseline. Praneeth Ovalle MD Pulmonary, Critical Care TT 60 OPEDIC DENTIST documented in this encounter Plan of Treatment Not on filedocumented as of this encounter Results CT Bx Lung District Superintendent (02/22/2021 1:14 PM ORTHOPEDIC DENTIST) Anatomical Region Laterality Modality Chest, Lung, Guided Computed Tomography Specimen (Source) Anatomical Location Collection Method / Collectio n Time Received Time / Laterality Volume Narrative 02/22/2021 1:18 PM ORTHOPEDIC DENTIST These images were obtained during a surg ical procedure. Xochitl Fuentes MD RAD CT documented in this encounter Visit Diagnoses Diagnosis Lung mass - Primary Swelling, mass, or lump in chest documented in this encounter Care Teams Educational Resource Center Teacher Relationship Specialty Start Date End Date Theresa Hardy MD PCP - General 05/22/10 03/15/21 [id number] [place] [facility] [address] documented as of this encounter
--- OUTSIDE RECORDS SUMMARY | 2021-11-09 06:15 | XMS_ITS | Encounter Summary ---
:1970 [address] [facility].[employer] Address [address] [address] Care Team Providers Name Role Phone Theresa Hardy MD Primary Care Provider Reason for Visit Reason Comments Dental Conversion [facility] to [place] convers ion Encounter Details Date Type Department Care Team Description 07/25/2016 Dental Conversion [place] [facility] Grant Beatty , [facility] DDS [address] [facility] [id number] [place] [address] [address] [place], [place] [phone] Social History Tobacco Use Types Packs/Day Years Used Date Smoking Tobacco: Never Food Insecurity Answer Date Recorded Within the past 12 months, you worried that your food would Never true 03/17/2021 run out before you got money to buy more. Within the past 12 months, the food you bought just didn't N ever true 03/17/2021 last and you didn't have money to get more. 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
--- OUTSIDE RECORDS SUMMARY | 2021-11-09 06:15 | XMS_ITS | Encounter Summary ---
:[address] [facility] Address [address] [address] Care Team Providers Name Role Phone Theresa Hardy MD Primary Care Provider Encounter Details Date Type Department Care Team Description 08/19/2006 Office Visit [facility] Liudmila De Paz, PA-C [id number] [place] [address] [phone] (Wo rk) Social History Tobacco Use Types [...] at Date Recorded Female 02/21/2021 8:36 PM SHIRT IRONER documented as of this encounter Last Filed Vital Signs Vital Sign Reading Time Taken Comments Blood Pressure 100/62 08/19/2006 2:33 PM CDT Pulse 76 08/19/2006 2:33 PM CDT Temperature - - Respiratory Rate - - Oxygen Saturation - - Inhaled Oxygen Concentration - - Weight 68.5 kg (150 lb 15.9 oz) 08/19/2006 2:33 PM CDT C: 68.5kg Height - - Body Mass Index 30.5 03/31/2006 8:58 AM SHIRT IRONER documented in this encounter Progress Notes Liudmila Beatty PA-C - 08/19/2006 12:01 AM CDT Progress Notes signed by Liudmila Beatty PA-C at 08/25/06 1450 Author: Liudmila Beatty PA-C Service: (none) Author Type: Physician Satellite Manager Filed: 06/08/102019 Note Time: 08/19/06 0001 Status: Signed Middleware Consultant: Liudmila Beatty PA-C (Physician Satellite Manager) NAME: MARII JOSÉ MR#: [id number] ACCT: [id number] VISIT: [id number] DICTATING CLINICIAN: MASHA GAMBLE JOB: [id number] LOC: 502 CLINIC PROGRESS NOTE DATE OF VISIT: 08/19/2006 SUBJECTIVE: Marii is a 36-year-old female who comes to the clinic today concerned about right upper quadrant abdominal pain radiating into the back that has been going about 3 weeks. She describes it as not intense but more of an annoying pain, a 3 to 4 out of 10. It is worse when she takes a deep breath. It tends to come and go but lately it has been more constant. She states it is random, it does not necessarily happen after eating. Sometimes it radiates into the right shoulder blade. Some times associated with nausea, but there has been no fever or chills. No rectal bleeding, shortness of breath or dysuria. Bowel movements have been normal. PAST MEDICAL HISTORY: Kidney stone. LMP 08/05/06. She is currently on a OCP and has struggled with infertility. MEDICATIONS: Reviewed and updated in the health profile in [employer] today. ADR/ALLERGIES: REVIEWED AND UPDATED IN THE HEALTH PROFILE IN [employer] TODAY. OBJECTIVE: VS: BP: 100/62. P: 76. Wt: 151. CONSTITUTIONAL: Sitting comfortably. Appears well. LUNGS: Clear to auscultation. HEART: Regular rate and rhythm. ABDOMEN: Positive bowel sounds, soft. There is minimal to moderate tenderness with palpation of the right upper abdomen, although Espinal sign is negative. There is no palpable masses. There is no CVA tenderness. Lumbar spine is nontender. ASSESSMENT: 1. Right upper quadrant abdominal pain. PLAN: RUQUS to took for gallstones. Will also check a CBC, LFT's and H. pylori. Trial of Prilosec in the meantime. She will contact me if everything else ends up being normal and if she still has pain. AMS:[id number] C: 08/20/06 16:18 DOCUMENT: [id number] documented in this encounter Plan of Treatment Not on filedocumented as of this encounter Visit Diagnoses Not on filedocumented in this encounter Care Teams Wind Energy Engineer Relationship Specialty Start Date End Date Theresa Hardy MD PCP - General 05/22/10 03/15/21 [address] [place] [facility] [address] documented as of this encounter
--- OUTSIDE RECORDS SUMMARY | 2021-11-09 06:15 | XMS_ITS | Encounter Summary ---
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
--- OUTSIDE RECORDS SUMMARY | 2021-11-09 06:15 | XMS_ITS | Encounter Summary ---
:1970 Author Organization [facility] Address [address], [place] [address] Care Team Providers Name Role Phone Theresa Hardy MD Primary Care Provider Reason for Referral Procedure/Equipment (Routine) - Incomplete Specialty Diagnoses / Procedures Referred By Contact Refer red To Contact Procedures Xochitl Fuentes MD XR Chest [address] [facility] [address] [place], [place] [address] Referral ID Status Reason Start Date Expiration Date Visits V isits Requested Authorized [id number] Incomplete 02/22/2021 05/24/2022 1 1 F ENGINEER Procedure/Equipment (Routine) - Incomplete Specialty Diagnoses / Procedures Referred By Contact Refer red To Contact Diagnoses Lung mass Xochitl Fuentes MD Procedures CT Bx Lung Bank Manager [address] [facility] [address] [place], [place] [address] Referral ID Status Reason Start Date Expiration Date Visits V isits Requested Authorized [id number] Incomplete 02/15/2021 05/17/2022 1 1 F ENGINEER Encounter Details Date Type Department Care Team Description 02/22/2021 Hospital Encounter Heart & Vascular Xochitl Fuentes, Lung mass Center Procedural Ar katerine CASTRO [address] [facility]. [address] [place], [place] [address] [address] [place], [place] [phone] (Wo rk) Social History Tobacco Use Types [...] at Date Recorded Female 02/21/2021 8:36 PM STAFF ENGINEER documented as of this encounter Last Filed Vital Signs Vital Sign Reading Time Taken Comments Blood Pressure 92/53 02/22/2021 2:15 PM STAFF ENGINEER Pulse 71 02/22/2021 2:15 PM STAFF ENGINEER Temperature 36.9 ??C (98.5 ??F) 02/22/2021 11:16 AM STAFF ENGINEER Respiratory Rate 17 02/22/2021 1:45 PM STAFF ENGINEER Oxygen Saturation 97% 02/22/2021 2:15 PM STAFF ENGINEER Inhaled Oxygen Concentration - - Weight - - Height - - Body Mass Index - - documented in this encounter Medications at Time [...] (AKA Take 1 tablet by 20 0 03/23/200 8 03/16/2021 FLEXERIL) 10 MG tablet mouth 3 times daily as needed. LW Comment:Needs Appt within 30 days LW Addl Instr:Indicated for: Muscle Spasms HYDROcodone-acetaminophen Take 1-2 tablets by 20 0 0 09/10/2006 02/26/2021 (VICODIN) 5-500 MG tablet mouth every 4 hours as needed. LW Addl Instr:Maximum of 8 tablets/24 hours. hyoscyamine (AKA Place 1-2 tablets 30 0 03/31/2006 0 02/26/2021 LEVSIN/SL) 0.125 MG under the tongue sublingual tablet every 4 hours as needed. LW Addl Instr:Indicated for: GI Tract Spasms naproxen (AKA NAPROSYN) Take 1 tablet by 60 0 200603/16/2021 500 MG tablet mouth 2 times daily as needed. LW Addl Instr:take with food norgestrel-ethinyl Take 1 tablet by 84 0 12/29/2006 02/26/2021 estradiol (LO/OVRAL, 28,) mouth daily (every 0.3-30 MG-MCG tablet 24 hours). LW Comment:Mar 2007 sonja LW Addl Instr:Follow package directions. prochlorPERAZINE Take 1 tablet by 20 0 03/31/2006 (COMPAZINE) 10 MG tablet mouth every 6 hours as needed. LW Addl Instr:Indicated for: Nausea documented as of this encounter Procedure Notes Xochitl Fuentes MD - 02/22/2021 1:15 PM CST Name of Procedure: CT guided transthoracic needle biopsy Indication: right side lung mass or nodule Premedication: 100 mcg fentanyl, 1 mg versed Pre op diagnosis: right lung mass/nodule Post op diagnosis: same Procedure: After informed consent and pause for the cause the patient was placed on the CT scanner in the prone position and the lined grid placed on the skin in the area of interest. After marking thesite for needle biopsy, the grid was removed and a sterile prep and drape was performed in the area.Local anesthesia was achieved to the pleural space with 1% lidocaine. A edmund incision was made in the skin with a scalpel. A number 19 gauge Temno needle with 10 cm trocar was advanced to the pleural space and to the proximal portion of the nodule/mass. 5 core biopsies were taken. The tissue is sent for pathology. The specimen was not sent to cytology. Cultures were done. There was no pneumothorax onimmediate post biopsy imaging. Patient is returned to [facility] in good condition for recovery. Follow up will be pulmonary clinic to review results. Moderate conscious sedation was administered by the nurse and supervised by the physician performingthe procedure. The following parameters were monitored: oxygen saturation, heart rate, blood pressure, and response to care. Total physician intraservice time was 48 minutes. Xochitl Fuentes MD Pulmonary Medicine F ENGINEER documented in this encounter Miscellaneous Notes Sedation Documentation - Josy Lugo RN - 02/22/2021 1:20 PM CST Procedure done. Dressing applied to site; dressing clean, dry & intact. Patient denies pain. Patient tolerated moderate sedation; vitals stable. Patient transported back to [facility]; report to bedside RN. Procedure was performed in the CT department with Moderate IV sedation and continuous physician and nurse monitoring. Total sedation time: 49 minutes Total Versed dose: 1 mg Total Fentanyl dose: 100 mcg F ENGINEER Sedation Documentation - oJsy Lugo RN - 02/22/2021 12:19 PM STAFF ENGINEER Timeout Timeout/pause for cause completed on 02/22/21 at 1220 Sedation Note ??? Monitors in place. ??? Patient reassessed and approved for sedation per Dr Fuentes. F ENGINEER documented in this encounter Plan of Treatment Not on filedocumented as of this encounter Procedures Procedure Name Priority Date/Time Associated Comments Diagnosis XR CHEST 1 VIEW Routine 02/22/2021 2:35 PM Result s for this STAFF ENGINEER procedure are i n the results section. AFB CULTURE Routine 02/22/2021 1:18 PM Results f or this STAFF ENGINEER procedure are i n the results section. AEROBIC & ANAEROBIC Routine 02/22/2021 1:18 PM Re sults for this CULTURE PANEL STAFF ENGINEER procedure are in the results section. FUNGUS CULTURE Routine 02/22/2021 1:18 PM Results for this STAFF ENGINEER procedure are i n the results section. ANAEROBIC CULTURE Routine 02/22/2021 1:18 PM Resu lts for this STAFF ENGINEER procedure are i n the results section. AFB CULTURE Routine 02/22/2021 1:18 PM Results f or this STAFF ENGINEER procedure are i n the results section. AEROBIC CULTURE Routine 02/22/2021 1:18 PM Result s for this STAFF ENGINEER procedure are i n the results section. SURGICAL PATHOLOGY Routine 02/22/2021 1:18 PM Res ults for this STAFF ENGINEER procedure are i n the results section. CT BX LUNG Routine 02/22/2021 1:14 PM Lung mass Results f or this COMMERCIAL COLLECTIONS DRIVER STAFF ENGINEER procedure are in the results section. CBC AND DIFFERENTIAL STAT 02/22/2021 11:19 Res ults for this PANEL AM STAFF ENGINEER procedure are i n the results section. COMPLETE BLOOD STAT 02/22/2021 11:19 Results f or this COUNT-W/DIFF AM STAFF ENGINEER procedure are i n the results section. INR/PROTIME STAT 02/22/2021 11:19 Results for this AM STAFF ENGINEER procedure are i n the results section. documented in this encounter Results XR Chest 1 View (02/22/2021 2:35 PM STAFF ENGINEER) Anatomical Region Laterality Modality Chest, Lung Digital Radiography Specimen (Source) Anatomical Collection Method Collection Time Re ceived Time Location / / Volume Laterality 02/22/2021 2:35 PM STAFF ENGINEER Impressions 02/22/2021 2:55 PM STAFF ENGINEER COMPARISON: ??CT 02/22/2021, 02/02/2021. FINDINGS: ??One view was obtained. ??The lungs are clear. The opacity in the superior segment of the right lower lobe medially is obscured due to right hilar structures. Heart size and pulmonary vascula rity are within normal limits. ??There i s no evidence of pneumothorax or pleural effusion. Bony thorax is unremarkable. Procedure Note Mitch Aguilar MD - 02/22/2021Formatti ng of this note might be different from the original. IMPRESSION COMPARISON: CT 02/22/2021, 02/02/2021. FINDINGS: One view was obtained. The kushal gs are clear. The opacity in the superior segment of the right lower lobe medially is obscured due to right hilar structures. Heart size and pulmonary vascularity are within normal limits. There is no evidence of pneumoth orax or pleural effusion. Bony thorax is unremarkable. Xochitl Fuentes MD RAD GD Anaerobic Culture (02/22/2021 1:18 PM STAFF ENGINEER) Nursing Home Quality Method Time Signature Anaerobic No Anaerobes 03/01/2021 [facility] Culture Isolated 11:05 AM STAFF ENGINEER HOSPITAL Specimen Anatomical Collection Method Collection Time Receive d Time (Source) Location / / Volume Laterality Tissue SPECIMEN FROM LUNG Non-blood 02/22/2021 1:18 PM 07/2021 1:32 / Unknown Collection / STAFF ENGINEER PM STAFF ENGINEER Unknown Xochitl Fuentes MD LAB_1 Performing Organization Address City/State/ZIP Code Phon e Number [address] [address] Aerobic Culture (02/22/2021 1:18 PM STAFF ENGINEER) Nursing Home Quality Method Time Signature Aerobic No Growth 02/25/2021 [facility] Culture After 3 Days 3:26 PM STAFF ENGINEER [facility] Gram Smear No PMN's 02/25/2021 [facility] Present 3:26 PM [facility] Gram Smear No Organisms 02/25/2021 [facility] Seen 3:26 PM STAFF ENGINEER HOSPITAL Specimen Anatomical Collection Method Collection Time Receive d Time (Source) Location / / Volume Laterality Tissue SPECIMEN FROM LUNG Non-blood 02/22/2021 1:18 PM 07/2021 1:32 / Unknown Collection / STAFF ENGINEER PM STAFF ENGINEER Unknown Xochitl Fuentes MD LAB_1 Performing Organization Address [facility] Code Phon e Number [address] [address] AFB Culture (02/22/2021 1:18 PM STAFF ENGINEER) [facility] gist Method Time Signature AFB Culture No Mycobacteria 04/21/2021 [facility] Isolated 9:11 AM [facility] AFB Smear No Acid Fast 04/21/2021 [facility] Bacilli Found 9:11 AM [facility] Specimen Anatomical Collection Method Collection Time Receive d Time (Source) Location / / Volume Laterality Tissue SPECIMEN FROM LUNG Non-blood 02/22/2021 1:18 PM 07/2021 1:32 / Unknown Collection / STAFF ENGINEER PM STAFF ENGINEER Unknown Xochitl Fuentes MD LAB_1 Performing Organization Address [facility] e Number [address] [address] Surgical Path (02/22/2021 1:18 PM STAFF ENGINEER) Component Value Ref Test Analysis Performed At [facility] Range Method Time Signature Case Report Surgical Pathology ?Case: [id number] ? 02/23/2021 [facility] Authorizing Provider: ??Xochitl Rose MD ?Collected: ? 02/22/2021 1318 ? 9:48 AM LABORAT ORY Ordering Location: ? [facility] ?Received: ?02/22/2021 1333 ? STAFF ENGINEER ? Procedural Area ? Pathologist: ? Jack Leung MD ? Specimen: ?Lung, right ? FINAL A. Lung, right, needle core biopsy: 08/2021 [facility] Electronically DIAGNOSIS Low-grade adenocarcinoma 9:48 AM LABOR ATORY signed by BERTRAM Leung MD on Comment: 02/23/2021 a t 9:48 JUANCARLOS Giron has reviewe d this case and concurs with the diagnosis. An Share Some Style message is sent to Dr. Fuentes regarding these results 02/23/21. AM Clinical Right lung mass; lifelong nonsmoker 08/2021 [facility] Information 9:48 AM LABORATORY STAFF ENGINEER Microscopic Microscopic 02/23/2021 [facility] Description examination is 9:48 AM LABORATORY performed. STAFF ENGINEER Gross A: 02/23/2021 [facility] Description The specimen is received in formalin and labeled with the patient's name and Lung, right. The specimen consists of multiple robison-white cylindrical, wispy, soft tissue fragments, ranging from minute-0.6 9:48 AM LABORATORY cm in length. The specimen is filtered, inked blue, and entirely submitted in one cassette. Minute portions may not survive processing. DV STAFF ENGINEER Embedded 02/23/2021 [facility] Images 9:48 AM LABORATORY STAFF ENGINEER Specimen Anatomical Collection Method Collection Time Receive d Time (Source) Location / / Volume Laterality Tissue SPECIMEN FROM LUNG Non-blood 02/22/2021 1:18 PM 07/2021 1:33 / Unknown Collection / STAFF ENGINEER PM STAFF ENGINEER Unknown Xochitl Fuentes MD LAB PATHOLOGY Performing Organization Address City/State/ZIP Code Phon e Number [facility] [address] [place] [address] CFUNG - Fungal Culture and Stain (02/22/2021 1:18 PM STAFF ENGINEER) Patholo gist Method Time Signature Fungus Culture No Fungus 03/26/2021 [facility] Isolated 7:44 AM STAFF ENGINEER HOSPITAL Fungus Smear No Yeast or 03/26/2021 [facility] Fungal 7:44 AM STAFF ENGINEER [facility]OSPITAL Elements Found Specimen Anatomical Collection Method Collection Time Receive d Time (Source) Location / / Volume Laterality Tissue SPECIMEN FROM LUNG Non-blood 02/22/2021 1:18 PM 07/2021 1:32 / Unknown Collection / STAFF ENGINEER PM STAFF ENGINEER Unknown Xochitl Fuentes MD LAB_1 Performing Organization Address City/State/ZIP Code Phon e Number [address] [address] [address] Bx Lung Bank Manager (02/22/2021 1:14 PM STAFF ENGINEER) Anatomical Region Laterality Modality Chest, Lung, Guided Computed Tomography Specimen (Source) Anatomical Location Collection Method / Collectio n Time Received Time / Laterality Volume Narrative 02/22/2021 1:18 PM STAFF ENGINEER These images were obtained during a surg ical procedure. Xochitl Fuentes MD RAD CT Complete Blood Count-W/Diff (02/22/2021 11:19 AM STAFF ENGINEER) P athologist Signature WBC 4.5 3.5 - 10.5 02/22/2021 [facility] x10(9)/L 11:42 AM STAFF ENGINEER LABORATORY RBC 3.91 3.90 - 02/22/2021 [facility] 5.03 11:42 AM STAFF ENGINEER LABORATORY x10(12)/L Hemoglobin 12.0 12.0 - 02/22/2021 [facility] 15.5 g/dL 11:42 AM STAFF ENGINEER LABORATORY HCT 37.7 34.9 - 02/22/2021 [facility] 44.5 % 11:42 AM STAFF ENGINEER LABORATORY MCV 96.4 80.0 - 02/22/2021 [facility] 100.0 fL 11:42 AM STAFF ENGINEER LABORATORY MCH 30.7 27.6 - 02/22/2021 [facility] 33.3 pg 11:42 AM STAFF ENGINEER LABORATORY MCHC 31.8 31.5 - 02/22/2021 [facility] 35.2 g/dL 11:42 AM STAFF ENGINEER LABORATORY RDW 13.7 11.9 - 02/22/2021 [facility] 15.5 % 11:42 AM STAFF ENGINEER LABORATORY Platelets 186 150 - 450 02/22/2021 [facility] x10(9)/L 11:42 AM STAFF ENGINEER LABORATORY Automated NRBC 0 <=0 /100 02/22/2021 [facility] WBC 11:42 AM STAFF ENGINEER LABORATORY Neutrophil 2.5 1.7 - 7.0 02/22/2021 [facility] Absolute 10(9)/L 11:42 AM STAFF ENGINEER LABORATORY Lymphocyte 1.6 1.0 - 4.8 02/22/2021 [facility] Absolute 10(9)/L 11:42 AM STAFF ENGINEER LABORATORY Monocytes 0.4 0.2 - 0.9 02/22/2021 [facility] Absolute 10(9)/L 11:42 AM STAFF ENGINEER LABORATORY Eosinophil 0.1 0.0 - 0.5 02/22/2021 [facility] Absolute 10(9)/L 11:42 AM STAFF ENGINEER LABORATORY Basophil 0.0 0.0 - 0.3 02/22/2021 [facility] Absolute 10(9)/L 11:42 AM STAFF ENGINEER LABORATORY Immature Gran % 0.2 0.0 - 0.5 02/22/2021 [facility] % 11:42 AM STAFF ENGINEER LABORATORY Specimen Anatomical Collection Method / Collection Time Recei leoncio Time (Source) Location / Volume Laterality Blood Venipuncture / 02/22/2021 11:19 2 Unknown AM STAFF ENGINEER 11:33 AM STAFF ENGINEER Xochitl Fuentes MD LAB_1 Performing Organization Address City/State/ZIP Code Phon e Number [facility] [address] [place] [address] INR/PROTIME (02/22/2021 11:19 AM STAFF ENGINEER) P athologist Signature Protime 13.0 11.8 - 14.6 02/22/2021 [facility] Seconds 11:54 AM STAFF ENGINEER LABORATORY INR 1.0 0.9 - 1.1 02/22/2021 [facility] 11:54 AM STAFF ENGINEER LABORATORY Specimen Anatomical Collection Method / Collection Time Recei leoncio Time (Source) Location / Volume Laterality Blood Venipuncture / 02/22/2021 11:19 2 Unknown AM STAFF ENGINEER 11:33 AM STAFF ENGINEER Narrative [facility] - 02/22/2021 11:54 AM STAFF ENGINEER Therapeutic range determined by protocol established by anticoagulation provider. Xochitl Fuentes MD LAB_1 Performing Organization Address City/State/ZIP Code Phon e Number [facility] [address] [place] [address] documented in this encounter Visit Diagnoses Diagnosis Lung mass Swelling, mass, or lump in chest documented in this encounter Administered Medications Inactive Administered Medications - up to 3 most recent administrations Medication Order MAR Action Action Date Dose Rate Site acetaminophen (TYLENOL) tablet 325-650 m g 325-650 mg, Oral, Q4H PRN, Other, Mild Pain (pain scor e 1-4), Starting on Laine 02/22/21 at 1317, Until Laine 02/22/21 at 1857 , Give for mild pain or if patient prefers acetaminophen over other options for pain (all pain sc ores). diphenhydrAMINE (BENADRYL) capsule 25 mg Given 02/22/2021 1:53 PM STAFF ENGINEER 25 mg 25 mg, Oral, Q6H PRN, Itching, Starting on Laine 02/22/21 at 1351, Until Laine 02/22/21 at 1857 fentaNYL (SUBLIMAZE) injection Given 02/22/2021 12:57 PM STAFF ENGINEER 50 mcg Intravenous, PRN, Starting on Laine 02/22/21 at 1222, Until Laine 02/22/21 at 1257 Given 02/22/2021 12:22 PM STAFF ENGINEER 50 mcg HYDROmorphone (DILAUDID) tablet 2 mg 2 mg, Oral, Q4H PRN, Other, Severe Pain (pain score 8-10), Starting on Laine 02/22/21 at 1317, Until Laine 02/22/21 at 1857 midazolam (VERSED) injection Given 02/22/2021 12:21 PM STAFF ENGINEER 1 mg Intravenous, PRN, Starting on Laine 02/22/21 at 1221, Until Laine 02/22/21 at 1221 ondansetron (ZOFRAN) injection 4 mg 4 mg, Intravenous, Q6H PRN, Nausea, Vomi ting, Starting on Laine 02/22/21 at 1317, Until Laine 02/22/21 at 1857 documented in this encounter Active and Recently Administered Medications Times are shown in STAFF ENGINEER. PRN Medication Order 02/20/2021 02/21/2021 02/22/2021 acetaminophen (TYLENOL) tablet 325-650 mg 325-650 mg, Oral, Q4H PRN, Other, Mild P ain (pain score 1-4), Starting on Laine 02/22/21 at 1317, Until Laine 02/22/21 at 1857, Give for mild pain or if patient prefers acetaminophen over other options for pain (all pain scores). diphenhydrAMINE (BENADRYL) capsule 25 mg 1353 (Given - Provider: Soila Romero RN) 25 mg, Oral, Q6H PRN, Itching, Starting on Laine 02/22/21 at 1351, Until Laine 02/22/21 at 1857 fentaNYL (SUBLIMAZE) injection (COMPLETED) 1222 (Given - Provider: Josy Lugo RN)1257 (Given - Provider: Josy Lugo RN) Intravenous, PRN, Starting on Laine 02/22/21 at 1222, Until Disconti nued HYDROmorphone (DILAUDID) tablet 2 mg 2 mg, Oral, Q4H PRN, Other, Severe Pain (pain score 8-10), Starting on Laine 02/22/21 at 1317, Until Laine 02/22/21 at 1857 midazolam (VERSED) injection (COMPLETED) 1221 (Given - Provider: Josy Lugo, COLETTE) Intravenous, PRN, Starting on Laine 02/22/21 at 1221, Until Disconti nued ondansetron (ZOFRAN) injection 4 mg 4 mg, Intravenous, Q6H PRN, Nausea, Vomi ting, Starting on Laine 02/22/21 at 1317, Until Laine 02/22/21 at 1857 No Frequency Medication Order 02/20/2021 02/21/2021 02/22/2021 sodium chloride 0.9 % solution 1 115 (Due)1447 (Stopped - Provider: Soila Romero RN) Starting on Laine 02/22/21 at 1107, For 1 dose, Marilu Hdz: cabinet override sodium chloride 0.9% 0.9 % injection - ADS Override Pull 1115 (Due) Starting on Laine 02/22/21 at 1107, Until Th u 02/22/21 at 2314, For 1 dose, Marilu Hdz: cabinet override documented in this encounter Care Teams Biomass Boiler Operator Relationship Specialty Start Date End Date Theresa Hardy MD PCP - General 05/22/10 03/15/21 [id number] [place] [facility] [address] documented as of this encounter
--- OUTSIDE RECORDS SUMMARY | 2021-11-09 06:15 | XMS_ITS | Encounter Summary ---
:1970 Author Organization [facility] Address [address] [address] Care Team Providers Name Role Phone Theresa Hardy MD Primary Care Provider Reason for Visit Procedure/Equipment (Routine) - Incomplete Specialty Diagnoses / Procedures Referred By Contact Refer red To Contact Procedures Provider, Foreign Images Foreign Image(S) CT Chest [address] [place] [address] Referral ID Status Reason Start Date Expiration Date Visits V isits Requested Authorized [id number] Incomplete 02/13/2021 05/15/2022 1 1 Encounter Details Date Type Department Care Team Description 02/02/2021 Ancillary Procedure [facility]iology PACS Provider, Foreign [address] [place] [address] [address] [place] [address] Social History Tobacco Use Types Packs/Day Years [...] at Date Recorded Female 02/21/2021 8:36 PM COMPUTER REPAIR TECHNICIAN documented as of this encounter Plan of Treatment Not on filedocumented as of this encounter Procedures Procedure Name Priority Date/Time Associated Diagnosis Comme nts FOREIGN IMAGE(S) CT Routine 02/02/2021 8:55 AM Re sults for this CHEST COMPUTER REPAIR TECHNICIAN procedure are i n the results section. documented in this encounter Results Foreign Image(S) CT Chest (02/02/2021 8:55 AM COMPUTER REPAIR TECHNICIAN) Specimen (Source) Anatomical Location Collection Method / Collectio n Time Received Time / Laterality Volume Narrative POCT - 02/13/2021 8:54 AM COMPUTER REPAIR TECHNICIAN These outside images have been uploaded into PACS. If the results were provided, they will be located in the mark [facility] chart under the Media or Imaging tab. Foreign Images Provider RAD NON-REPORTABLES Performing Organization Address City/State/ZIP Code Phon e Number POCT documented in this encounter Visit Diagnoses Not on filedocumented in this encounter Care Teams Fraud Prevention Analyst Relationship Specialty Start Date End Date Theresa Hardy MD PCP - General 05/22/10 03/15/21 [id number] [place] [facility] [place] [id number] documented as of this encounter
--- OUTSIDE RECORDS SUMMARY | 2021-11-09 06:15 | XMS_ITS | Encounter Summary ---
:1970 Author Organization Formerly [facility], [facility] Address [address] [place] [address] Care Team Providers Name Role Phone Theresa Hardy MD Primary Care Provider Reason for Referral Procedure/Equipment (Routine) - Incomplete Specialty Diagnoses / Procedures Referred By Contact Refer red To Contact Diagnoses Malignant neoplasm of lower lobe of right lung (HRC) Pedro Hull MD Procedures Case Request OR - Cardiothoracic Surgery: THORACOSCOPY/THORACOTOMY/LUNG RESECTION [address] [place], [place] [address] Referral ID Status Reason Start Date Expiration Date Visits V isits Requested Authorized [id number] Incomplete 03/09/2021 06/08/2022 1 1 SERVER BI DEVELOPER Reason for Visit Reason Comments CONSULT Consult/Transfer Care (Routine) - New Request Specialty Diagnoses / Procedures Referred By Contact Refer red To Contact Diagnoses Malignant neoplasm of lower lobe of right lung (HRC) Kian Winters MBBS [address] [place], [place] [address] Referral ID Status Reason Start Date Expiration Date Visits V isits Requested Authorized [id number] New Request 03/01/2021 05/31/2022 1 1 Encounter Details Date Type Department Care Team Description 03/09/2021 Office Visit [facility] Pedro Hull, Malignant neoplasm Cardiothoracic Surge ry MD of lower lobe of [address] right lung (HRC) [place], [place] Blvd (Primary Dx) [address] [place], [place] [phone] Social History Tobacco Use Types Packs/Day Years [...] at Date Recorded Female 02/21/2021 8:36 PM SQL SERVER BI DEVELOPER documented as of this encounter Last Filed Vital Signs Vital Sign Reading Time Taken Comments Blood Pressure 118/72 03/09/2021 9:11 AM SQL SERVER BI DEVELOPER Pulse 53 03/09/2021 9:11 AM SQL SERVER BI DEVELOPER Temperature - - Respiratory Rate - - Oxygen Saturation - - Inhaled Oxygen Concentration - - Weight 74.8 kg (165 lb) 03/09/2021 9:11 AM SQL SERVER BI DEVELOPER Height - - Body Mass Index 32.39 03/01/2021 12:59 PM SQL SERVER BI DEVELOPER documented in this encounter Progress Notes Pedro Hull MD - 03/09/2021 12:00 AM CST NAME: MARII JOSÉ CSN: [id number] CLINIC NOTE CONSULTATION DATE OF SERVICE: 03/09/2021 : 1970 REASON FOR CONSULTATION: Lung cancer. HISTORY OF PRESENT ILLNESS: This is a 50-year-old female who recently had donated blood and was getting a pedicure when she had a syncopal event. She was taken for evaluation in the emergency department and a CT scan demonstrated a right lower lobe mass. She was ultimately referred to Pulmonology and a CT- guided biopsy was performed showing adenocarcinoma. She underwent a PET-CT that showed no evidence of metastatic disease. She is completely asymptomatic. REVIEW OF SYSTEMS: Otherwise normal. PAST MEDICAL HISTORY: Impaired glucose tolerance, amenorrhea, contact dermatitis, eczema, ureteral stones. PAST SURGICAL HISTORY: None. MEDICATIONS: Flexeril, estradiol, fluoxetine, hydrocortisone cream, hydroxyzine, lorazepam, metoprolol, naproxen, Zofran, Compazine, sumatriptan, Topamax. ALLERGIES: AUGMENTIN, DOXYCYCLINE, METRONIDAZOLE. FAMILY HISTORY: Her paternal uncle of lung cancer. Her dad had non- Hodgkin's lymphoma and is . Her mother is alive and healthy. SOCIAL HISTORY: The patient lives with her . She works at [employer] in the [employer] [facility] [employer]. She denies alcohol, tobacco, and illicit drug abuse. PHYSICAL EXAMINATION: VITAL SIGNS: Blood pressure is 118/72, heart rate is 53. GENERAL: She is alert and oriented to person, place, time, and situation. HEART: Rate is regular. LUNGS: Clear. EXTREMITIES: Warm, well perfused. DIAGNOSTIC STUDIES: Hemoglobin is 12.0, platelets are 186. Pathology showed a low-grade adenocarcinoma. CT scan and PET-CT were reviewed. 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 I would recommend surgical resection. I had a long discussion with the patient and her regarding the risks, benefits, and alternatives of surgical resection. Hopefully, this can be done with a minimally invasive approach using thoracoscopy. Will be scheduled as soon as possible. Thank you for the opportunity to participate in this patient's care. Total time spent on this consultation is 1 hour, greater than 50% of the time was with the patient and her counseling and coordinating care. MD TOBIN HANSON/CHERRY /[id number] SERVER BI DEVELOPER documented in this encounter Plan of Treatment Not on filedocumented as of this encounter Results 2019 Novel Coronavirus (COVID-19) (03/13/2021 4:38 PM SQL SERVER BI DEVELOPER) [facility] Method Time Signature COVID-19 Not Not [facility]20[facility] Interpretation Detected Detected 10:12 AM CENTRAL LAB SQL SERVER BI DEVELOPER Source Nares, left 03/14/2021 [facility] and right 10:12 AM CENTRAL LAB SQL SERVER BI DEVELOPER Specimen Anatomical Collection Method Collection Time Receive d Time (Source) Location / / Volume Laterality Swab (Source ENTIRE ANTERIOR Non-blood 03/13/2021 4:38 PM 2021 4:38 Required) NARIS / Unknown Collection / SQL SERVER BI DEVELOPER PM SQL SERVER BI DEVELOPER Unknown Narrative [facility] - 03/14/2021 10:12 AM SQL SERVER BI DEVELOPER Tested by Polymerase Chain Reaction (PCR ), Clinical Nurse Educator-mediated amplification (TMA), or another nucleic acid amplifica tion test (NAAT). Pedro Hull MD LAB_1 Performing Organization Address City/State/ZIP Code Phon e Number [facility] [address] [address] documented in this encounter Visit Diagnoses Diagnosis Malignant neoplasm of lower lobe of righ t lung (HRC) - Primary documented in this encounter Care Teams B Operator Relationship Specialty Start Date End Date Theresa Hardy MD PCP - General 05/22/10 03/15/21 [address] [place] [address] documented as of this encounter
--- OUTSIDE RECORDS SUMMARY | 2021-11-09 06:15 | XMS_ITS | Encounter Summary ---
:1970 Author [facility] Address [address], [place] [address] Care Team Providers Name Role Phone Theresa Hardy MD Primary Care Provider Encounter Details Date Type Department Care Team Description 02/20/2021 Lab Visit [facility] with [place] [id number] [facility] covid-19 [place] [address] Social History Tobacco Use Types Packs/Day Years [...] at Date Recorded Female 02/21/2021 8:36 PM ATTENDING PATHOLOGIST documented as of this encounter Plan of Treatment Not on filedocumented as of this encounter Procedures Procedure Name Priority Date/Time Associated Comments Diagnosis 2019 NOVEL Routine 02/20/2021 4:34 PM Contact with and Resul ts for this CORONAVIRUS ATTENDING PATHOLOGIST (suspected) procedure are i n exposure to the results covid-19 section. documented in this encounter Results Asymptomatic - 2019 Novel Coronavirus (COVID-19) (02/20/2021 4:34 PM ATTENDING PATHOLOGIST) [facility] Method Time Signature COVID-19 Not Not 02/21/2021 [facility] Interpretation Detected Detected 10:52 AM CENTRAL LAB ATTENDING PATHOLOGIST Source Nares, left 02/21/2021 [facility] and right 10:52 AM CENTRAL LAB ATTENDING PATHOLOGIST Specimen Anatomical Collection Method Collection Time Receive d Time (Source) Location / / Volume Laterality Swab (Source ENTIRE ANTERIOR Non-blood 02/20/2021 4:34 PM 2021 4:43 Required) NARIS / Unknown Collection / ATTENDING PATHOLOGIST PM ATTENDING PATHOLOGIST Unknown Narrative [facility] - 02/21/2021 10:52 AM ATTENDING PATHOLOGIST Test performed by Investor Mediated Amplification. TMA has been shown to be equivalent to commercial real-time PCR t ests. This test has been authorized by the FDA under an Emergency Use Authorization (EUA) for use by authorized laboratories. Theresa Hardy MD LAB_1 Performing Organization Address City/State/ZIP Code Phon e Number [facility] [address] [address] documented in this encounter Visit Diagnoses Diagnosis Contact with and (suspected) exposure to covid-19 documented in this encounter Care Teams Flame Hardening Machine Setter Relationship Specialty Start Date End Date Theresa Hardy MD PCP - General 05/22/10 03/15/21 [address] [place] [address] documented as of this encounter
--- OUTSIDE RECORDS SUMMARY | 2021-11-09 06:15 | XMS_ITS | Encounter Summary ---
:1970 [facility] Address [address], [place] [address] Care Team Providers Name Role Phone Theresa Hardy MD Primary Care Provider Reason for Visit Procedure/Equipment (Routine) - Incomplete Specialty Diagnoses / Procedures Referred By Contact Refer red To Contact Diagnoses Lung mass Greyson Ovalle MD Procedures NM PET/CT Skull Base To Mid Thigh [address] [place], [place] [address] Referral ID Status Reason Start Date Expiration Date Visits V isits Requested Authorized [id number] Incomplete 02/26/2021 05/28/2022 6 6 Encounter Details Date Type Department Care Team Description 02/28/2021 Hospital Encounter Restorationist Nuclear Greyson Ovalle, Medicine [address] [place] [address] [phone] (Wo rk) Social History Tobacco Use Types [...] at Date Recorded Female 02/21/2021 8:36 PM DOUGH CUTTER documented as of this encounter Medications at [...] CAPSULE BY 0 021 (VISTARIL) 25 MG capsule MOUTH EVERY [...] for: Nausea documented as of this encounter Plan of Treatment Not on filedocumented as of this encounter Procedures Procedure Name Priority Date/Time Associated Diagnosis Comme nts NM PET/CT SKULL Routine 02/28/2021 3:54 PM Lung mass Result s for this BASE TO MID THIGH DOUGH CUTTER procedure are in the results section. documented in this encounter Results NM PET/CT Skull Base To Mid Thigh (02/28/2021 3:54 PM DOUGH CUTTER) Anatomical Region Laterality Modality Nuclear Medicine Specimen (Source) Anatomical Collection Method Collection Time Re ceived Time Location / / Volume Laterality 02/28/2021 2:13 PM DOUGH CUTTER Impressions 02/28/2021 4:25 PM DOUGH CUTTER TECHNIQUE: Images were obtained from the skull [...] NM documented in this encounter Visit Diagnoses Not on filedocumented in this encounter Care Teams Contact Lens Technician Relationship Specialty Start Date End Date Theresa Hardy MD PCP - General 05/22/10 03/15/21 [address] [place] [address] documented as of this encounter
--- OUTSIDE RECORDS SUMMARY | 2021-11-09 06:15 | XMS_ITS | Encounter Summary ---
:1970 [facility] Address [address] [place] [address] Care Team Providers Name Role Phone Theresa Hardy MD Primary Care Provider Encounter Details Date Type Department Care Team Description 09/11/2006 PN Conversion Only [facility] [address] [place] [address] Social History Tobacco Use Types Packs/Day Years [...] at Date Recorded Female 02/21/2021 8:36 PM DISTRICT CUSTOMS DIRECTOR documented as of this encounter Plan of Treatment Not on filedocumented as of this encounter Procedures Procedure Name Priority Date/Time Associated Diagnosis Comme nts CT PELVIS WO IV Routine 09/11/2006 7:50 AM Result s for this CONT CDT procedure are i n the results section. CT ABD WO IV CONT Routine 09/11/2006 7:49 AM Resu lts for this CDT procedure are i n the results section. documented in this encounter Results CT Pelvis WO IV Cont (09/11/2006 7:50 AM CDT) Anatomical Region Laterality Modality Pelvis, Abdomen Other Specimen (Source) Anatomical Location Collection Method / Collectio n Time Received Time / Laterality Volume Narrative 09/11/2006 7:50 AM CDT The exam was performed without contrast enhancement for evaluation of possible renal and/or ureteral calculi. FINDINGS: ??The liver, spleen, pancreas, gallbladder and adrenals are unremarkable. There are 2 nonobstructing calculi in th e right kidney, each of which measures approximately 2 mm in diameter. ??There are 3 nonobstructing calculi in the left kidney, the largest of which measures approximately 2-3 mm. No ureteral stones are identified. The appendix is visualized and normal. ? ?No pelvic mass lesions are identified. ??Follicles are present on b oth ovaries and no free fluid is noted. CONCLUSION: ??Bilateral nonobstructing r enal calculi with no other abnormalities identified. [id number] Dictating MARQUIS ZAMBRANO RADIOLOGIST Procedure Note Marquis Ross - 04/25/2016 The exam was performed without contrast enhancement for evaluation of possible renal and/or ureteral calculi. FINDINGS: The liver, spleen, pancreas, g allbladder and adrenals are unremarkable. There are 2 nonobstructing calculi in th e right kidney, each of which measures approximately 2 mm in diameter. There are 3 nonobstructing calculi in the left kidney, the largest of which measures approximately 2-3 mm. No ureteral stones are identified. The appendix is visualized and normal. N o pelvic mass lesions are identified. Follicles are present on bot h ovaries and no free fluid is noted. CONCLUSION: Bilateral nonobstructing alin al calculi with no other abnormalities identified. [id number]/cs Dictating MARQUIS ZAMBRANO RADIOLOGIST Liudmila Beatty PA-C RAD CT CT Abd WO IV Cont (09/11/2006 7:49 AM CDT) Anatomical Region Laterality Modality Abdomen, Pelvis Other Specimen (Source) Anatomical Location Collection Method / Collectio n Time Received Time / Laterality Volume Narrative 09/11/2006 7:49 AM CDT The exam was performed without contrast enhancement for evaluation of possible renal and/or ureteral calculi. FINDINGS: ??The liver, spleen, pancreas, gallbladder and adrenals are unremarkable. There are 2 nonobstructing calculi in th e right kidney, each of which measures approximately 2 mm in diameter. ??There are 3 nonobstructing calculi in the left kidney, the largest of which measures approximately 2-3 mm. No ureteral stones are identified. The appendix is visualized and normal. ? ?No pelvic mass lesions are identified. ??Follicles are present on b oth ovaries and no free fluid is noted. CONCLUSION: ??Bilateral nonobstructing r enal calculi with no other abnormalities identified. [id number] Dictating MARQUIS ZAMBRANO RADIOLOGIST Procedure Note Marquis Ross - 04/25/2016 The exam was performed without contrast enhancement for evaluation of possible renal and/or ureteral calculi. FINDINGS: The liver, spleen, pancreas, g allbladder and adrenals are unremarkable. There are 2 nonobstructing calculi in th e right kidney, each of which measures approximately 2 mm in diameter. There are 3 nonobstructing calculi in the left kidney, the largest of which measures approximately 2-3 mm. No ureteral stones are identified. The appendix is visualized and normal. N o pelvic mass lesions are identified. Follicles are present on bot h ovaries and no free fluid is noted. CONCLUSION: Bilateral nonobstructing alin al calculi with no other abnormalities identified. [id number]/cs Dictating MARQUIS ZAMBRANO RADIOLOGIST Liudmila Beatty PA-C RAD CT documented in this encounter Visit Diagnoses Not on filedocumented in this encounter Care Teams Production Team Member Relationship Specialty Start Date End Date Theresa Hardy MD PCP - General 05/22/10 03/15/21 [address] [place] [address] documented as of this encounter
--- OUTSIDE RECORDS SUMMARY | 2021-11-09 06:15 | XMS_ITS | Encounter Summary ---
:1970 [facility] Address [address] [place] [address] Care Team Providers Name Role Phone Theresa Hardy MD Primary Care Provider Encounter Details Date Type Department Care Team Description 11/11/2009 Nursing Visit [facility] Tommy Del Castillo MD [address] [place] [address] Social History Tobacco Use Types Packs/Day Years [...] at Date Recorded Female 02/21/2021 8:36 PM BULK LOADER documented as of this encounter Plan of Treatment Not on filedocumented as of this encounter Visit Diagnoses Not on filedocumented in this encounter Care Teams Derrick Builder Relationship Specialty Start Date End Date Theresa Hardy MD PCP - General 05/22/10 03/15/[address] [place] [address] documented as of this encounter
--- OUTSIDE RECORDS SUMMARY | 2021-11-09 06:15 | XMS_ITS | Encounter Summary ---
:1970 Author Organization [facility] Address [address] [address] Care Team Providers Name Role Phone Mariaelena Hardy MD Primary Care Provider Reason for Visit Reason Comments Other Encounter Details Date Type Department Care Team Description 12/26/2006 Telephone [facility] chino Gtz Melissa J Other [address] [place] [address] Social History Tobacco Use Types [...] at Date Recorded Female 02/21/2021 8:36 PM CASHIER CREDIT documented as of this encounter Progress Notes Center, Message - 12/26/2006 11:04 AM CST Phone Note filed by [employer] at 06/06/10820 Author: Message Center Service: (none) Author Type: (none) Filed: 06/06/10820 Note Time: 12/26/06 110 Status: Signed Kitchen Steward/Stewardess: Message Center Medication Issue/Refill Caller Name/Relationship:Fifi Primary Extrusion Utility Worker:Antony Comment/Symptom:pt under new insurance and now needs to use mail order requesting new script to be mailed to her home address Pharmacy Name & Phone #: Pharmacy Street or City: Drug Name: control lo-ovral Strength:28tabs Dose/Route/Freq:#3months Site Surveyor:Fifi Best call back number:[phone] Is it OK to leave a confidential message on this voicemail?yes Created on 26Dec2006 11:04am by MISA POWELL On 29Dec2006 8:41am MARIAELENA HARDY wrote: Rx printed and signed and in my outbox.Thanks Acknowledged by MARIAELENA HARDY on 8:41am Acknowledged by PADMINI ISABEL on 8:51am On 29Dec2006 9:06am MELISSA SAN wrote: mailed to pt Acknowledged by MELISSA SAN on 9:06am IER CREDIT documented in this encounter Plan of Treatment Not on filedocumented as of this encounter Visit Diagnoses Not on filedocumented in this encounter Care Teams Apprentice Machinist Outside Relationship Specialty Start Date End Date Mariaelena Hardy MD PCP - General 05/22/10 03/15/21 [address] [place] [address] documented as of this encounter
--- OUTSIDE RECORDS SUMMARY | 2021-11-09 06:15 | XMS_ITS | Encounter Summary ---
:1970 Author Organization [facility] Address [address] [address] Care Team Providers Name Role Phone Theresa Hardy MD Primary Care Provider Reason for Referral Procedure/Equipment (Routine) - Incomplete Specialty Diagnoses / Procedures Referred By Contact Refer red To Contact Diagnoses Lung mass Greyson Ovalle MD Procedures NM PET/CT Skull Base To Mid Thigh [address] [place], [place] [address] Referral ID Status Reason Start Date Expiration Date Visits V isits Requested Authorized [id number] Incomplete 02/26/2021 05/28/2022 6 6 ESSOR OF ART HISTORY Reason for Visit Procedure/Equipment (Routine) - Incomplete Specialty Diagnoses / Procedures Referred By Contact Refer red To Contact Diagnoses Lung mass Greyson Ovalle MD Procedures NM PET/CT Skull Base To Mid Thigh [address] [place], [place] [address] Referral ID Status Reason Start Date Expiration Date Visits V isits Requested Authorized [id number] Incomplete 02/26/2021 05/28/2022 6 6 Encounter Details Date Type Department Care Team Description 02/28/2021 Hospital Encounter Yarsanism Greyson Garcia Lung mass Medicine [address] [facility] [address] [place] [address] [phone] (Wo rk) Social History Tobacco Use Types [...] at Date Recorded Female 02/21/2021 8:36 PM PROFESSOR OF ART HISTORY documented as of this encounter Medications at [...] s for this BASE TO MID THIGH PROFESSOR OF ART HISTORY procedure are in the results section. GLUCOSE, WHOLE Routine 02/28/2021 2:25 PM Results for this BLOOD POCT PROFESSOR OF ART HISTORY procedure are i n the results section. documented in this encounter Results NM PET/CT Skull Base To Mid Thigh (02/28/2021 3:54 PM PROFESSOR OF ART HISTORY) Anatomical Region Laterality Modality Nuclear Medicine Specimen (Source) Anatomical Collection Method Collection Time Re ceived Time Location / / Volume Laterality 02/28/2021 2:13 PM PROFESSOR OF ART HISTORY Impressions 02/28/2021 4:25 PM PROFESSOR OF ART HISTORY TECHNIQUE: Images were obtained from the skull [...] metastatic disease. Greyson Ovalle MD RAD NM Glucose, Whole Blood POCT (02/28/2021 2:25 PM PROFESSOR OF ART HISTORY) [facility] Method Time Signature Glucose, Whole 82 70 - 180 02/28/2021 [facility] Blood mg/dL 2:26 PM PROFESSOR OF ART HISTORY LABORATORY Performing [place] NUC MED 02/28/2021 [facility] Location 2:26 PM PROFESSOR OF ART HISTORY LABORATORY Specimen Anatomical Collection Method Collection Time Receive d Time (Source) Location / / Volume Laterality Blood 02/28/2021 2:25 PM 2 2:26 PROFESSOR OF ART HISTORY PM PROFESSOR OF ART HISTORY Greyson Ovalle MD LAB_1 Performing Organization Address City/State/ZIP Code Phon e Number [facility] [address] [place] [address] documented in this encounter Visit Diagnoses Diagnosis Lung mass Swelling, mass, or lump in chest documented in this encounter Administered Medications Inactive Administered Medications - up to 3 most recent administrations Medication Order MAR Action Action Date Dose Rate Site fluorine-18 Given 02/28/2021 2:30 10.48 millicuries fluorodeoxyglucose (F18) PM PROFESSOR OF ART HISTORY injection 10.48 millicurie 10.48 millicurie, Intravenous, ONCE, On Fri02/28/21 at 1500, For 1 dose, Radiology sodium chloride 0.9% injection 20 mL Given 02/28/2021 2:30 PM PROFESSOR OF ART HISTORY 20 mL 20 mL, Intravenous, ONCE, On Fri02/28/21 at 1500, For 1 dose, For line care., Radiology documented in this encounter Care Teams Submersible Pilot Relationship Specialty Start Date End Date Theresa Hardy MD PCP - General 05/22/10 03/15/21 [address] [place] [address] documented as of this encounter
--- OUTSIDE RECORDS SUMMARY | 2021-11-09 06:15 | XMS_ITS | Encounter Summary ---
:1970 Author Organization [facility] Address [address], [place] [address] Care Team Providers Name Role Phone Theresa Hardy MD Primary Care Provider Reason for Visit Reason Comments Appt. Scheduled Encounter Details Date Type Department Care Team Description 02/26/2021 Telephone Specialty [facility] [address] Stacia Ovalle MD Appt. Scheduled Pulmonary Medicine [address] [facility] [address] [place] [address] [place] [address] [phone] Social History Tobacco Use Types Packs/Day Years [...] at Date Recorded Female 02/21/2021 8:36 PM MENTALLY RETARDED TEACHER documented as of this encounter Nursing Notes Jenny Schaeffer RN - 02/26/2021 8:[address] Ovalle had a 9:45 am cancellation this morning and said he could call pt at that time if she didn't want to wait until noon. LVM for pt to call back to see if she would want to move this appt up. ALLY RETARDED TEACHER documented in this encounter Plan of Treatment Not on filedocumented as of this encounter Visit Diagnoses Not on filedocumented in this encounter Care Teams Weigher And Crusher Relationship Specialty Start Date End Date Theresa Hardy MD PCP - General 05/22/10 03/15/21 [address] [place] [address] documented as of this encounter
--- OUTSIDE RECORDS SUMMARY | 2021-11-09 06:15 | XMS_ITS | Encounter Summary ---
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 Comment:- Pharmacy Seq #:-[phone] [facility] Street or City:-[place] Clinician Name:-Domitila Hardy Drug Name/Strength:-Flexeril 10MG tab Sig: Dose/Route/Freq:-take one tab three times daily as needed Quantity & Last Fill:-30 06/02/06 Created on 23Mar2007 9:37am by ISRAEL VAZQUEZ On 23Mar2007 10:48am MARIAELENA HARDY wrote: Faxed. Acknowledged by MARIAELENA HARDY on 10:48am STIC VIOLENCE COUNSELOR documented in this encounter Plan of Treatment Not on filedocumented as of this encounter Visit Diagnoses Not on filedocumented in this encounter Care Teams Neon Tube Pumper Relationship Specialty Start Date End Date Mariaelena Hardy MD PCP - General 05/22/10 03/15/21 [address] [place] [address] documented as of this encounter
--- OUTSIDE RECORDS SUMMARY | 2021-11-09 06:15 | XMS_ITS | Encounter Summary ---
:1970 Author Organization [email or web address] Address [address] [address] Care Team Providers Name Role Phone Theresa Hardy MD Primary Care Provider Encounter Details Date Type Department Care Team Description 10/20/2008 Nursing Visit [facility] Javier Suarez MD [facility]ly [facility], [address] [address] [address] [place] [address] (Wo rk) Social History Tobacco Use Types [...] at Date Recorded Female 02/21/2021 8:36 PM ENGRAVER PICTURE documented as of this encounter Plan of Treatment Not on filedocumented as of this encounter Visit Diagnoses Not on filedocumented in this encounter Care Teams Construction Controller Relationship Specialty Start Date End Date Theresa Hardy MD PCP - General 05/22/10 03/15/21 [address] [place] [address] documented as of this encounter
--- OUTSIDE RECORDS SUMMARY | 2021-11-09 06:15 | XMS_ITS | Encounter Summary ---
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 Could she please return this call? Thanks Cigarette Lighter Repairer:Fifi Belcher call back number:[phone] Best time to call back:anytime Is it OK to leave a confidential message on this voicemail?yes *ECODE~[id number] Created on 08Sep2006 2:34pm by ESTEBAN ANDERSON On 08Sep2006 2:50pm SURINDER HUA wrote: Still has pain. US showed right kidney stone 6-7 mm. Procede with abdomen CT stone protocol for kidnet stone. Pt aware. Please schedule. Acknowledged by SURINDER HUA on 2:50pm On 08Sep2006 3:57pm CAROL ONEILL wrote: ct scheduled. Patient notified. Acknowledged by CAROL ONEILL on 3:57pm K TRAILER MECHANIC documented in this encounter Plan of Treatment Not on filedocumented as of this encounter Visit Diagnoses Not on filedocumented in this encounter Care Teams Management Information Systems Director Relationship Specialty Start Date End Date Theresa Hardy MD PCP - General 05/22/10 03/15/21 [address] [place] [address] documented as of this encounter
--- OUTSIDE RECORDS SUMMARY | 2021-11-09 06:15 | XMS_ITS | Encounter Summary ---
:1970 Author Organization [email or web address] Address [address] [address] Care Team Providers Name Role Phone Theresa Hardy MD Primary Care Provider Encounter Details Date Type Department Care Team Description 08/19/2006 PN Conversion Only [facility] Liudmila Alba, PA-C [id number] [place] [address] (Wo rk) Social History Tobacco Use Types [...] at Date Recorded Female 02/21/2021 8:36 PM MARKETING AREA MANAGER documented as of this encounter Plan of Treatment Not on filedocumented as of this encounter Procedures Procedure Name Priority Date/Time Associated Comments Diagnosis URINALYSIS Routine 08/19/2006 3:10 PM Results f or this ROUTINE(MICRO IF CDT procedure a re in POS) the results section. COMPLETE BLOOD Routine 08/19/2006 3:10 PM Results for this COUNT-W/DIFF CDT procedure are i n the results section. ALT (SGPT) Routine 08/19/2006 3:10 PM Results f or this CDT procedure are i n the results section. AST Routine 08/19/2006 3:10 PM Results f or this CDT procedure are i n the results section. BILIRUBIN, TOTAL Routine 08/19/2006 3:10 PM Resul ts for this CDT procedure are i n the results section. documented in this encounter Results Complete Blood Count-W/Diff (08/19/2006 3:10 PM CDT) [facility] Method Time Signature White Blood Cell 6.9 3.8 - 11.0 [facility] N Count K/cmm Red Blood Cell 4.38 3.70 - HP CONVERSION Count 5.20 m/cmm Hemoglobin 14.6 11.8 - HP CONVERSION 15.5 gm/dL Hematocrit 43.2 35.0 - HP CONVERSION 46.0 % Mean Corpuscular 98.5 80.0 - HP CONVERSION Volume 100.0 fl Mean Corpuscular 33.4 27.0 - HP CONVERSION Hemoglobin 34.0 pg Mean Corpuscular 33.9 32.0 - HP CONVERSION Hemoglobin Conc 36.5 gm/dL [place] RDW 11.8 11.0 - HP CONVERSION 15.0 % Platelet Count 193 140 - 450 HP CONVERSION k/cmm Differential Auto-Dif No normal HP CONVERSION Verify range Neutrophils 4.7 2.0 - 7.5 HP CONVERSION Absolute Count K/cmm Neutrophil 67.5 50.0 - HP CONVERSION 75.0 % Lymphocyte % 26.1 20.0 - HP CONVERSION 40.0 % Monocyte 5.5 5.0 - 14.0 HP CONVERSION % Eosinophil 0.6 0.0 - 6.0 HP CONVERSION % Basophil % 0.3 0.0 - 2.0 HP CONVERSION % Specimen (Source) Anatomical Collection Method Collection Time Re ceived Time Location / / Volume Laterality 08/19/2006 3:10 PM CDT Liudmila Beatty PA-C LAB_1 Performing Organization Address City/State/ZIP Code Phon e Number HP CONVERSION ALT (SGPT) (08/19/2006 3:10 PM CDT) [facility] Method Time Signature Alanine 23 4 - 55 HP CONVERSION Aminotransferase U/L Specimen (Source) Anatomical Collection Method Collection Time Re ceived Time Location / / Volume Laterality 08/19/2006 3:10 PM CDT Liudmila Beatty JENNIFEROmayra LAB_1 Performing Organization Address [facility] Phon e Number HP CONVERSION AST (08/19/2006 3:10 PM CDT) [facility] Method Time Signature Aspartate 21 0 - 45 HP CONVERSION Aminotransferase U/L Specimen (Source) Anatomical Collection Method Collection Time Re ceived Time Location / / Volume Laterality 08/19/2006 3:10 PM CDT Liudmila Beatty JENNIFEROpalLeonides LAB_1 Performing Organization Address City/[facility] Phon e Number HP CONVERSION Bilirubin, Total (08/19/2006 3:10 PM CDT) athologist Signature Bilirubin Total 1.1 0.2 - 1.2 HP CONVERSION mg/dL Specimen (Source) Anatomical Collection Method Collection Time Re ceived Time Location / / Volume Laterality 08/19/2006 3:10 PM CDT Liudimla Beatty JENNIFEROmayra LAB_1 Performing Organization Address [facility] Phon e Number HP CONVERSION Urinalysis Routine(Micro If Pos) (08/19/2006 3:10 PM CDT) [facility] Method Time Signature Turbidity Clear No normal HP CONVERSION range pH Urine 6.5 4.5 - 7.5 HP CONVERSION Protein Urine Negative Neg-Trac HP CONVERSION Glucose, Negative Neg-Trac HP CONVERSION Qualitative U Ketones Negative Negative HP CONVERSION U BILI Negative Negative HP CONVERSION Blood Urine Negative Negative HP CONVERSION Nitrite Urine Negative Negative HP CONVERSION Leukocyte Negative Negative HP CONVERSION Esterase Urine Urobilinogen Negative 0.2 - 1.0 HP CONVERSION Urine U Specific 1.020 1.005 - 25 HP CONVERSION [place] Specimen (Source) Anatomical Collection Method Collection Time Re ceived Time Location / / Volume Laterality 08/19/2006 3:10 PM CDT Liudmila Beatty JENNIFEROmayra LAB_1 Performing Organization Address [facility] Phon e Number HP CONVERSION documented in this encounter Visit Diagnoses Not on filedocumented in this encounter Care Teams Concrete Worker Relationship Specialty Start Date End Date Theresa Hardy MD PCP - General 05/22/10 03/15/[id number] [place] [address] [place] [address] documented as of this encounter
--- OUTSIDE RECORDS SUMMARY | 2021-11-09 06:16 | XMS_ITS | Encounter Summary ---
:1970 [facility] Address [address], [place] [address] Care Team Providers Name Role Phone Theresa Hardy MD Primary Care Provider Reason for Visit Reason Comments Other Encounter Details Date Type Department Care Team Description 12/31/2004 Telephone [facility] Viji Hayes [address] [place] [address] Social History Tobacco Use Types [...] at Date Recorded Female 02/21/2021 8:36 PM EXECUTIVE ADMIN documented as of this encounter Progress Notes Viji Hayes - 12/31/2004 10:16 AM CST Phone Note filed by Viji Hayes RN at 06/04/102213 Author: Viji Hayes RN Service: (none) Author Type: Registered Nurse Filed: 06/04/102213 Note Time: 12/31/04 1016 Status: Signed Machine Pan Greaser: Viji Hayes, RN (Registered Nurse) Fifi called back. She was at [facility] an on 12/27 for diarrhea. She made an appt.today because she was no better. She just received a call from [facility] that her stool test was positive for C Diff. They are going to prescribe treatment for her and asked her to come for a recheck appt.the end of this week. Appt. made this Thursday 01/04 in [facility] and appt. in [place] was cancelled for today. Created on 31Dec2004 10:16am by VIJI HAYES UTIVE ADMIN documented in this encounter Plan of Treatment Not on filedocumented as of this encounter Visit Diagnoses Not on filedocumented in this encounter Care Teams Counter Clerk Relationship Specialty Start Date End Date Theresa Hardy MD PCP - General 05/22/10 03/15/21 [address] [place] [address] documented as of this encounter
--- OUTSIDE RECORDS SUMMARY | 2021-11-09 06:16 | XMS_ITS | Encounter Summary ---
:1970 Author Organization [facility] Address [address] [address] Care Team Providers Name Role Phone Mariaelena Hardy MD Primary Care Provider Encounter Details Date Type Department Care Team Description 03/31/2006 Office Visit [facility] [place] [address] [place] [address] [place], [place] [address] (Wo rk) Social History Tobacco Use Types [...] at Date Recorded Female 02/21/2021 8:36 PM PARTS SPECIALIST documented as of this encounter Last Filed Vital Signs Vital Sign Reading Time Taken Comments Blood Pressure 110/68 03/31/2006 8:58 AM PARTS SPECIALIST Pulse 70 03/31/2006 8:58 AM PARTS SPECIALIST Temperature - - Respiratory Rate - - Oxygen Saturation - - Inhaled Oxygen Concentration - - Weight 66.7 kg (146 lb 15.7 oz) 03/31/2006 8:58 AM C: 6 6.7kg PARTS SPECIALIST Height 149.9 cm (4' 11) 03/31/2006 8:58 AM C: 149.9cm PARTS SPECIALIST Body Mass Index 29.69 03/31/2006 8:58 AM PARTS SPECIALIST documented in this encounter Progress Notes Mariaelena Hardy MD - 03/31/2006 12:01 AM CST H&P signed by Mariaelena Hardy MD at 04/20/06 1939 Author: Mariaelena Hardy MD Service: (none) Author Type: Physician Filed: 06/08/10 1729 Note Time: 03/31/06 0001 Status: Signed Plan Examiner: Mariaelena Hardy MD (Physician) NAME: MARII JOSÉ MR#: [id number] ACCT: [id number] VISIT: [id number] DICTATING CLINICIAN: MARIAELENA HARDY MD JOB: [id number] LOC: 502 CLINIC PHYSICAL DATE OF VISIT: 03/31/2006 SUBJECTIVE: : 1970. Chief Complaint: Complete physical. HISTORY OF PRESENTING ILLNESS: Marii is a 36-year-old lady who today came in for a complete physical. According to the patient, she does have a history of migraine, and the headaches are well controlled. Otherwise, review of systems, she denies any chest pain, no breathing difficulty, no headache, no blurry vision. Complete review of system is otherwise negative. PAST MEDICAL HISTORY: Migraine, irritable bowel syndrome, and eczema. MEDICATION: Patient is on control pill and Topamax. ADR/ALLERGIES: Reviewed from lastword. SOCIAL HISTORY, SURGICAL HISTORY, HOSPITALIZATION, GYNECOLOGICAL HISTORY, FAMILY HISTORY: please review note dictated on 03/18/05. IMMUNIZATION: Patient did a receive a tetanus booster in 2005. HABIT: Patient does occasional exercise and eat a well-balanced diet. OBJECTIVE: VS: BP: ??110/68?? P: ??78?? Wt: ??147 lb?? GENERAL: Patient is comfortable, in no acute distress. HEENT: Head normocephalic, atraumatic. Tympanic membranes are clear bilaterally. Pharynx is clear. There is no redness. There is no exudate. Pupils are reactive to light. NECK: Supple. CARDIOVASCULAR SYSTEM: S1 and S2 regular. LUNGS: Clear to auscultation bilaterally. ABDOMEN: Soft, nondistended, nontender, positive bowel sounds. EXTREMITIES: No edema. NEURO: Exam has no focal findings. Cranial nerves are intact. Strength 5/5 upper and lower extremities. Sensations are intact. Reflexes are 2+ positive bilaterally. BREASTS: No mass is appreciated. Overlying skin is normal. No nipple discharge is present bilaterally. SKIN: No suspicious lesion identified. PELVIC: Uterus of normal size. There is no adnexal tenderness present. There is no cervical motion tenderness present. Also, the vaginal mucosa is moist and pink. RECTAL: No masses appreciated. ASSESSMENT: 1. Health care maintenance. Monthly self breast examination has been recommended. The patient has been recommended to take adequate calcium intake and weight-bearing exercises for the prevention of osteoporosis. I did a Pap smear on the patient. I am also going to check for the patient fractionated cholesterol, fasting blood sugar, and hemoglobin A1c. Otherwise, patient's tetanus is up-to-date. 2. Migraine headaches, stable. PLAN: See assessment. SS:[id number] C: 04/01/06 18:04 DOCUMENT: [id number] S SPECIALIST documented in this encounter Plan of Treatment Not on filedocumented as of this encounter Visit Diagnoses Not on filedocumented in this encounter Care Teams Cone Cleaner Relationship Specialty Start Date End Date Mariaelena Hardy MD PCP - General 05/22/10 03/15/21 [address] [place] [address] documented as of this encounter
--- OUTSIDE RECORDS SUMMARY | 2021-11-09 06:16 | XMS_ITS | Encounter Summary ---
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 documented as of this encounter Last Filed Vital Signs Vital Sign Reading Time Taken Comments Blood Pressure 126/72 10/01/2004 7:32 PM CDT Pulse 87 10/01/2004 7:32 PM CDT Temperature 38.2 ??C (100.8 ??F) 10/01/2004 7:32 PM CDT C: 3 8.2 C Respiratory Rate 14 10/01/2004 7:32 PM CDT Oxygen Saturation - - Inhaled Oxygen Concentration - - Weight - - Height - - Body Mass Index - - documented in this encounter Progress Notes Evelyn Andrade PA-C - 10/01/2004 12:01 AM CDT Progress Notes signed by Evelyn Andrade PA-C at 10/03/04 1335 Author: Evelyn Andrade PA-C Service: (none) Author Type: Resource Filed: 06/08/10 0635 Note Time: 10/01/04 0001 Status: Signed Dj Instructor: Evelyn Andrade PA-C (Resource) NAME: MARII JOSÉ MR: [id number] ACCT: [id number] VISIT: [id number] DICTATING CLINICIAN: EVELYN ANDRADE PA-C JOB: [id number] CLINIC PROGRESS NOTE DATE OF VISIT: 10/01/2004 SUBJECTIVE: A 34-year-old female who states today she had severe abdominal cramping, where she broke into a cold sweat, states her legs felt like lead, got nauseous, but no vomiting, and proceeded to feel this way for quite some time. She did have an active bowel movement and now presents because she is concerned. She denies any fever or chills, any vomiting. She has had no diarrhea. She did have a bowel movement today. She has had no dysuria. Rates the pain as a 2/10. Denies any fever. Last period was 2 weeks ago. All of the rest of complete review of systems is negative. PAST MEDICAL HISTORY: Patient currently seeing Dr. Bojorquez for a possible IBS. An upper GI is planned for 10/08/2004. MEDICATIONS: Reviewed by myself in LastWord. ADR/ALLERGIES: REVIEWED BY MYSELF IN LASTWORD. SOCIAL HISTORY: Does not smoke. OBJECTIVE: VS: BP: 126/72. T: 100.8. P: 87. R: 14. Well-developed, well-nourished female in no acute distress; alert and cooperative. GENERAL: Patient looks well. SKIN: Warm and dry. No lesions, erythema, rashes noted. LUNGS: Clear. No rhonchi, wheezing or crackles. CV: Regular rate and rhythm. No murmurs, gallops, or rubs. ABDOMEN: Skin is clear. Bowel sounds throughout. No rebound, guarding. Mild tenderness to palpation throughout. No organomegaly. No masses are felt. Laboratory results as ordered and reviewed by myself: X-ray shows a large amount of stool. White blood cell count was 6.7, neutrophils 80.8. Urinalysis significant for 15 ketones and 10-24 WBCs. Negative leuko esterase. ASSESSMENT: 1. Abdominal pain. 2. Constipation. 3. Leukorrhea. PLAN: Urine culture and sensitivity is pending. Patient is started on MiraLax to take as directed, along with a Fleet's enema. Symptomatic care and follow up. If symptoms become worse prior to that time, should be re-seen. LAG:[id number] C: 10/03/04 06:39 DOCUMENT: [id number] documented in this encounter Plan of Treatment Not on filedocumented as of this encounter Procedures Procedure Name Priority Date/Time Associated Diagnosis Comme nts XR ABD FLAT AND Routine 10/01/2004 9:11 PM Result s for this UPRIGHT CDT procedure are i n the results section. documented in this encounter Results XR Abd Flat And Upright (10/01/2004 9:11 PM CDT) Anatomical Region Laterality Modality Abdomen Other Specimen (Source) Anatomical Location Collection Method / Collectio n Time Received Time / Laterality Volume Narrative 10/01/2004 9:11 PM CDT Large pelvic phlebolith on the left. ??Mild rotoscoliosis convex right. ??Nonspecific abdominal gas patte rn with no evidence for free air nor obstruction. [facility]/ [id number] Dictating ALBIN BOYKIN MD Procedure Note Albin Medina - 04/25/2016 Large pelvic phlebolith on the left. Mil d rotoscoliosis convex right. Nonspecific abdominal gas pattern with no evidence for free air nor obstruction. lito/ [id number] Dictating ALBIN BOYKIN MD Evelyn Andrade PA-C RAD GD documented in this encounter Visit Diagnoses Not on filedocumented in this encounter Care Teams Apparel Merchandiser Relationship Specialty Start Date End Date Theresa Hardy MD PCP - General 05/22/10 03/15/21 [address] [place] [address] documented as of this encounter
--- OUTSIDE RECORDS SUMMARY | 2021-11-09 06:16 | XMS_ITS | Encounter Summary ---
:1970 Author Organization [facility] Address [address] [address] Care Team Providers Name Role Phone Theresa Hardy MD Primary Care Provider Reason for Visit Reason Comments Other Encounter Details Date Type Department Care Team Description 03/28/2006 Telephone [facility], Message Other [address] [place] [address] Social History Tobacco Use Types [...] at Date Recorded Female 02/21/2021 8:36 PM AUTOMOTIVE PARTS COUNTERPERSON documented as of this encounter [facility], Message - 03/28/2006 9:30 AM CST Phone Note filed by [employer] at 06/05/10 8157 Author: [employer] Service: (none) Author Type: (none) Filed: 06/05/10 1546 Note Time: 03/28/06929 Status: Signed Dairy Department Manager: [employer] Prescription Refill Please provide enough refills to last until patient's next visit. Comment:-Appt Mar 31 Pharmacy Seq #:-[phone] [facility]acy [facility] Street or City:-[place] Clinician Name:-Domitila Hardy Drug Name/Strength:-Cryselle-28 tabs Sig: Dose/Route/Freq:-take one tab daily Quantity & Last Fill:-28 02/28/06 Created on 28Mar2006 9:30am by ISRAEL VAZQUEZ On 28Mar2006 11:05am LINDSEY HELM wrote: Renewed medication per medication refill protocol. MOTIVE PARTS COUNTERPERSON documented in this encounter Plan of Treatment Not on filedocumented as of this encounter Visit Diagnoses Not on filedocumented in this encounter Care Teams Rn Registry Relationship Specialty Start Date End Date Theresa Hardy MD PCP - General 05/22/10 03/15/21 [address] [place] [address] documented as of this encounter
--- OUTSIDE RECORDS SUMMARY | 2021-11-09 06:16 | XMS_ITS | Encounter Summary ---
:1970 Author Organization [facility] Address [address] [address] Care Team Providers Name Role Phone Theresa Hardy MD Primary Care Provider Encounter Details Date Type Department Care Team Description 11/20/2005 Nursing Visit [facility] [place] [address] [facility] [address] [facility] TIR[place] [address] [place], [place] [phone] Social History Tobacco Use Types Packs/Day [...] at Date Recorded Female 02/21/2021 8:36 PM STUD SHEEP FARMER documented as of this encounter Plan of Treatment Not on filedocumented as of this encounter Visit Diagnoses Not on filedocumented in this encounter Care Teams Logistics Associate Relationship Specialty Start Date End Date Theresa Hardy MD PCP - General 05/22/10 03/15/21 [address] [place] [address] documented as of this encounter
--- OUTSIDE RECORDS SUMMARY | 2021-11-09 06:16 | XMS_ITS | Encounter Summary ---
:1970 Author Organization [facility] Address [address] [place] [address] Care Team Providers Name Role Phone Theresa Hardy MD Primary Care Provider Encounter Details Date Type Department Care Team Description 08/15/2004 PN Conversion Only [place] [address] [address] [place] [address] Social History Tobacco Use Types Packs/Day Years [...] at Date Recorded Female 02/21/2021 8:36 PM PRODUCER ASSISTANT documented as of this encounter Plan of Treatment Not on filedocumented as of this encounter Visit Diagnoses Not on filedocumented in this encounter Care Teams Fruit Shipper Relationship Specialty Start Date End Date Theresa Hardy MD PCP - General 05/22/10 03/15/[address] [place] [address] documented as of this encounter
--- OUTSIDE RECORDS SUMMARY | 2021-11-09 06:16 | XMS_ITS | Encounter Summary ---
:1970 [facility] Organization [facility] Address [address] [place] [address] Care Team Providers Name Role Phone Theresa Hardy MD Primary Care Provider Encounter Details Date Type Department Care Team Description 08/29/2004 PN Conversion Only [facility] [address] [place] [address] Social History Tobacco Use Types Packs/Day Years [...] at Date Recorded Female 02/21/2021 8:36 PM INFORMATION SYSTEMS SECURITY SPECIALIST documented as of this encounter Plan of Treatment Not on filedocumented as of this encounter Procedures Procedure Name Priority Date/Time Associated Diagnosis Comme nts US ABD RUQ ORGANS Routine 08/29/2004 7:37 AM Resu lts for this CDT procedure are i n the results section. documented in this encounter Results US Abd RUQ Organs (08/29/2004 7:37 AM CDT) Anatomical Region Laterality Modality Abdomen Other Specimen (Source) Anatomical Location Collection Method / Collectio n Time Received Time / Laterality Volume Impressions 08/29/2004 7:37 AM CDT : ??Normal right upper quadrant ultrasound study. Pancreatic tail poorly visualized. [facility]/ [id number] Dictating GEOVANY DOUGLAS RADIOLOGIST Narrative 08/29/2004 7:37 AM CDT The gallbladder is normal with no gallstones. ??Wall thickness is normal. ??The common bile duct is normal with a maximum diameter measurement of 3 mm. ??The liver is norm al and there is no ascites. Pancreas and right kidney are normal. ?? Pancreatic tail is poorly seen because of bowel gas in the left abdomen . Procedure Note Geovany Saunders - 04/25/2016Formattin g of this note might be different from the original. The gallbladder is normal with no gallst ones. Wall thickness is normal. The common bile duct is normal w ith a maximum diameter measurement of 3 mm. The liver is normal and there is no ascites. Pancreas and right kidney are normal. Pa ncreatic tail is poorly seen because of bowel gas in the left abdomen . IMPRESSION : Normal right upper quadrant ultrasound study. Pancreatic tail poorly visualized. [facility]/ [id number] Dictating GEOVANY DOUGLAS RADIOLOGIST Laureen Bojorquez MD RAD US documented in this encounter Visit Diagnoses Not on filedocumented in this encounter Care Teams Technology Services Manager Relationship Specialty Start Date End Date Theresa Hardy MD PCP - General 05/22/10 03/15/21 [address] [address] [place] [address] documented as of this encounter
--- OUTSIDE RECORDS SUMMARY | 2021-11-09 06:16 | XMS_ITS | Encounter Summary ---
:1970 Author Organization [facility] Address [address], [place] [address] Care Team Providers Name Role Phone Mariaelena Hardy MD Primary Care Provider Reason for Visit Reason Comments Other Encounter Details Date Type Department Care Team Description 06/02/2006 Telephone [facility] Mariaelena Juan MD Other [address] [place] [address] [place], [place] [phone] (Wo rk) Social History Tobacco Use Types [...] at Date Recorded Female 02/21/2021 8:36 PM GRAPHITE PAN DRIER TENDER documented as of this encounter [facility], Message - 06/02/2006 1:45 PM CDT Phone Note filed by zhiwo at 06/05/10 9284 Author: Message Center Service: (none) Author Type: (none) Filed: 06/05/10 1917 Note Time: 06/02/06 1345 Status: Signed Repairer Finished Metal: Message Miles Prescription Refill Please provide enough refills to last until patient's next visit. Comment:- Pharmacy Seq #:-[phone] [facility]acy Name[facility] Street or City:-[place] Clinician Name:-Domitila Hardy Drug Name/Strength:-Cyclobenzapr 10MG tab Sig: Dose/Route/Freq:-take one tab three times daily as needed Quantity & Last Fill:-30 03/04/06 Created on 02Jun2006 1:45pm by ISRAEL VAZQUEZ On 02Jun2006 2:13pm MARIAELENA HARDY wrote: faxed. Acknowledged by MARIAELENA HARDY on 2:13pm HITE PAN DRIER TENDER documented in this encounter Plan of Treatment Not on filedocumented as of this encounter Visit Diagnoses Not on filedocumented in this encounter Care Teams Plastic Finisher Relationship Specialty Start Date End Date Mariaelena Hardy MD PCP - General 05/22/10 03/15/[address] [place] [address] documented as of this encounter
--- OUTSIDE RECORDS SUMMARY | 2021-11-09 06:16 | XMS_ITS | Encounter Summary ---
:1970 [facility] Address [address], [place] [address] Care Team Providers Name Role Phone Theresa Hardy MD Primary Care Provider Reason for Visit Reason Comments Other Encounter Details Date Type Department Care Team Description 09/13/2004 Telephone [facility] Venkata Rao MD Other [address] [facility] [address] [place] [address] [place], [place] [phone] (Wo rk) Social History Tobacco Use Types [...] at Date Recorded Female 02/21/2021 8:36 PM CHANGE MANAGEMENT FACILITATOR documented as of this encounter [facility], Message - 09/13/2004 8:55 AM CDT Phone Note filed by Message Center at 06/04/101933 Author: Message Center Service: (none) Author Type: (none) Filed: 06/04/101933 Note Time: 09/13/04854 Status: Signed Perforating Machine Operator: Message Center MESSAGE TO CARE TEAM NAME OF CALLER:Fifi Kasper NAME OF CLINICIAN:Dr. Bojorquez MESSAGE:Pt takes Topamax 100 mg bid, she is requesting a new order to be called to pharm with enough pills that will last her 30 days,last rx only gave her half of a month. Knows Dr. Bojorquez is out of office today...ok for tomorrow. [facility] PHONE #:[phone] CALL BACK PHONE #:[phone] BEST TIME TO CALL BACK: Is it OK to leave detailed message on voicemail? yes Created on 13Sep2004 8:55am by MORIS DOUGHERTY On 14Sep2004 11:34am VENKATA BOJORQUEZ wrote: oknicho above-script printed Acknowledged by VENKATA BOJORQUEZ on 11:34am On 14Sep2004 1:20pm CAROL STEVENS wrote: pt. called and message was left for her to call back. Acknowledged by CAROL STEVENS on 1:20pm On 14Sep2004 1:20pm VENKATA BOJORQUEZ wrote: okay topamax 100mg po bid #60 with 5 refills Acknowledged by VENKATA BOJORQUEZ on 1:20pm On 17Sep2004 8:19am CAROL STEVENS wrote: Above rx called. GE MANAGEMENT FACILITATOR documented in this encounter Plan of Treatment Not on filedocumented as of this encounter Visit Diagnoses Not on filedocumented in this encounter Care Teams Load Dispatcher Relationship Specialty Start Date End Date Theresa Hardy MD PCP - General 05/22/10 03/15/21 [address] [address] [place] [address] documented as of this encounter
--- OUTSIDE RECORDS SUMMARY | 2021-11-09 06:16 | XMS_ITS | Encounter Summary ---
:1970 Author Organization [email or web address] Address [address], [place] [address] Care Team Providers Name Role Phone Theresa Hardy MD Primary Care Provider Encounter Details Date Type Department Care Team Description 01/04/2005 [place] [address] [facility] [address] [place] [address] [place], [place] [phone] (Wo rk) Social History Tobacco Use Types [...] at Date Recorded Female 02/21/2021 8:36 PM GERONTOLOGY AIDE documented as of this encounter Plan of Treatment Not on filedocumented as of this encounter Procedures Procedure Name Priority Date/Time Associated Comments Diagnosis ELECTROLYTES (NA, K, Routine 01/04/2005 12:32 Res ults for this CL, BICARB) PM GERONTOLOGY AIDE procedure are i n the results section. CREATININE / GFR Routine 01/04/2005 12:32 Results for this PM GERONTOLOGY AIDE procedure are i n the results section. COMPLETE BLOOD Routine 01/04/2005 12:32 Results f or this COUNT-W/DIFF PM GERONTOLOGY AIDE procedure are i n the results section. BUN Routine 01/04/2005 12:32 Results for this PM GERONTOLOGY AIDE procedure are i n the results section. documented in this encounter Results Complete Blood Count-W/Diff (01/04/2005 12:32 PM GERONTOLOGY AIDE) Patholo gist Method Time Signature White Blood Cell 7.6 3.8 - 11.0 HP CONVERSIO N Count K/cmm Red Blood Cell 4.65 3.70 - HP CONVERSION Count 5.20 m/cmm Hemoglobin 15.4 11.8 - HP CONVERSION 15.5 gm/dL Hematocrit 45.3 35.0 - HP CONVERSION 46.0 % Mean Corpuscular 97.5 80.0 - HP CONVERSION Volume 100.0 fl Mean Corpuscular 33.2 27.0 - HP CONVERSION Hemoglobin 34.0 pg Mean Corpuscular 34.1 32.0 - HP CONVERSION Hemoglobin Conc 36.5 gm/dL [place] RDW 11.8 11.0 - HP CONVERSION 15.0 % Platelet Count 288 140 - 450 HP CONVERSION k/cmm Differential Auto-Dif No normal HP CONVERSION Verify range Neutrophils 5.0 2.0 - 7.5 HP CONVERSION Absolute Count K/cmm Neutrophil 66.0 50.0 - HP CONVERSION 75.0 % Lymphocyte % 25.7 20.0 - HP CONVERSION 40.0 % Monocyte 7.1 5.0 - 14.0 HP CONVERSION % Eosinophil 1.2 0.0 - 6.0 HP CONVERSION % Basophil % 0.0 0.0 - 2.0 HP CONVERSION % Specimen (Source) Anatomical Collection Method Collection Time Re ceived Time Location / / Volume Laterality 01/04/2005 12:32 PM GERONTOLOGY AIDE Ander Carlson MD LAB_1 Performing Organization Address City/State/ZIP Code Phon e Number HP CONVERSION BUN (01/04/2005 12:32 PM GERONTOLOGY AIDE) P athologist Signature Blood Urea 9 5 - 26 HP CONVERSION Nitrogen mg/dL Specimen (Source) Anatomical Collection Method Collection Time Re ceived Time Location / / Volume Laterality 01/04/2005 12:32 PM GERONTOLOGY AIDE Ander Carlosn MD LAB_1 Performing Organization Address City/State/ZIP Code Phon e Number HP CONVERSION Creatinine / GFR (01/04/2005 12:32 PM GERONTOLOGY AIDE) P athologist Signature Creatinine 1.0 0.5 - 1.5 HP CONVERSION Serum mg/dL Specimen (Source) Anatomical Collection Method Collection Time Re ceived Time Location / / Volume Laterality 01/04/2005 12:32 PM GERONTOLOGY AIDE Ander Thurman Robyn CASTRO LAB_1 Performing Organization Address City/[facility] Phon e Number HP CONVERSION (ABNORMAL) Electrolytes (NA, K, CL, Bicarb) (01/04/2005 12:32 PM GERONTOLOGY AIDE) athologist Signature Sodium 145 137 - 147 HP CONVERSION meq/L Potassium 3.6 3.5 - 5.2 HP CONVERSION meq/L Chloride 112 (H) 98 - 110 HP CONVERSION meq/L Bicarbonate 22 (L) 23 - 33 HP CONVERSION mmol/L Specimen (Source) Anatomical Collection Method Collection Time Re ceived Time Location / / Volume Laterality 01/04/2005 12:32 PM GERONTOLOGY AIDE Ander Thurman Robyn CASTRO LAB_1 Performing Organization Address City/State/ZIP Code Phon e Number HP CONVERSION documented in this encounter Visit Diagnoses Not on filedocumented in this encounter Care Teams Estate Planning Counselor Relationship Specialty Start Date End Date Theresa Hardy MD PCP - General 05/22/10 03/15/21 [address] [address] [address] documented as of this encounter
--- OUTSIDE RECORDS SUMMARY | 2021-11-09 06:16 | XMS_ITS | Encounter Summary ---
:1970 Author Organization [facility] Address [address] [place] [address] Care Team Providers Name Role Phone Theresa Hardy MD Primary Care Provider Encounter Details Date Type Department Care Team Description 10/08/2004 PN Conversion Only [facility] [address] [place] [address] Social History Tobacco Use Types Packs/Day Years [...] at Date Recorded Female 02/21/2021 8:36 PM HOSPICE MASSAGE THERAPIST documented as of this encounter Plan of Treatment Not on filedocumented as of this encounter Procedures Procedure Name Priority Date/Time Associated Diagnosis Comme nts FL UGI W SMALL Routine 10/08/2004 10:37 AM Result s for this BOWEL W BARIUM CDT procedure are in the results section. documented in this encounter Results FL UGI W Small Bowel W Barium (10/08/2004 10:37 AM CDT) Anatomical Region Laterality Modality Abdomen Other Specimen (Source) Anatomical Location Collection Method / Collectio n Time Received Time / Laterality Volume Narrative 10/08/2004 10:37 AM CDT The patient swallowed barium without difficulty. ??The esophagus, stomach, duodenal bulb and loop are norm al. Small bowel follow-through demonstrates the small bowel to be normal in caliber, course and mucosal pattern. ??Fluoroscopic evaluation of the small bowel including the terminal i leum reveals it to be normal. CONCLUSION: ??Normal upper GI with delaney l small bowel follow-through. [id number] Dictating MARQUIS ZAMBRANO RADIOLOGIST Procedure Note Marquis Ross - 04/25/2016 The patient swallowed barium without dif ficulty. The esophagus, stomach, duodenal bulb and loop are norm al. Small bowel follow-through demonstrates the small bowel to be normal in caliber, course and mucosal pattern. Fluoroscopic evaluation of the small bowel including the terminal i leum reveals it to be normal. CONCLUSION: Normal upper GI with normal small bowel follow-through. [id number]/pb Dictating MARQUIS ZAMBRANO RADIOLOGIST Laureen Bojorquez MD RAD [place] documented in this encounter Visit Diagnoses Not on filedocumented in this encounter Care Teams Hazard Waste Handler Relationship Specialty Start Date End Date Theresa Hardy MD PCP - General 05/22/10 03/15/21 [address] [place] [address] [place] [address] documented as of this encounter
--- OUTSIDE RECORDS SUMMARY | 2021-11-09 06:16 | XMS_ITS | Encounter Summary ---
:1970 Author [facility] Address [address] [place] [address] Care Team Providers Name Role Phone Theresa Hardy MD Primary Care Provider Encounter Details Date Type Department Care Team Description 08/17/2004 PN Conversion Only [facility] Laureen Bojorquez, [address] [facility] [place] [address] [address] [place] [address] (Wo rk) Social History Tobacco [...] at Date Recorded Female 02/21/2021 8:36 PM INSPECTOR WATCH PARTS documented as of this encounter Plan of Treatment Not on filedocumented as of this encounter Procedures Procedure Name Priority Date/Time Associated Comments Diagnosis GT (GAMMA GT) Routine 08/17/2004 10:30 AM Results for this CDT procedure are i n the results section. ALT (SGPT) Routine 08/17/2004 10:30 AM Results for this CDT procedure are i n the results section. AST Routine 08/17/2004 10:30 AM Results for this CDT procedure are i n the results section. BILIRUBIN, TOTAL Routine 08/17/2004 10:30 AM Resu lts for this CDT procedure are i n the results section. BILI - DIRECT Routine 08/17/2004 10:30 AM Results for this CDT procedure are i n the results section. ALKALINE Routine 08/17/2004 10:30 AM Results for this PHOSPHATASE, TOTAL CDT procedure are in the results section. URINALYSIS COMPLETE Routine 08/17/2004 10:19 AM R esults for this HOLD CULTURE CDT procedure are i n the results section. documented in this encounter Results Alkaline Phosphatase, Total (08/17/2004 10:30 AM CDT) P athologist Signature Alk Phos 79 50 - 136 U/L HP CONVERSION Specimen (Source) Anatomical Collection Method Collection Time Re ceived Time Location / / Volume Laterality 08/17/2004 10:30 AM CDT Laureen Bojorquez MD LAB_1 Performing Organization Address City/State/ZIP Code Phon e Number HP CONVERSION ALT (SGPT) (08/17/2004 10:30 AM CDT) Patholo gist Method Time Signature Alanine 40 0 - 65 HP CONVERSION Aminotransferase U/L Specimen (Source) Anatomical Collection Method Collection Time Re ceived Time Location / / Volume Laterality 08/17/2004 10:30 AM CDT Laureen Bojorquez MD LAB_1 Performing Organization Address City/State/ZIP Code Phon e Number HP CONVERSION AST (08/17/2004 10:30 AM CDT) Patholo gist Method Time Signature Aspartate 21 0 - 45 HP CONVERSION Aminotransferase U/L Specimen (Source) Anatomical Collection Method Collection Time Re ceived Time Location / / Volume Laterality 08/17/2004 10:30 AM CDT Laureen Bojorquez MD LAB_1 Performing Organization Address City/State/ZIP Code Phon e Number HP CONVERSION Bilirubin, Direct (08/17/2004 10:30 AM CDT) P athologist Signature Bilirubin, 0.2 0.0 - 0.4 HP CONVERSION Direct mg/dL Specimen (Source) Anatomical Collection Method Collection Time Re ceived Time Location / / Volume Laterality 08/17/2004 10:30 AM CDT Laureen Bojorquez MD LAB_1 Performing Organization Address City/[facility] Phon e Number HP CONVERSION Bilirubin, Total (08/17/2004 10:30 AM CDT) athologist Signature Bilirubin Total 1.2 0.2 - 1.2 HP CONVERSION mg/dL Specimen (Source) Anatomical Collection Method Collection Time Re ceived Time Location / / Volume Laterality 08/17/2004 10:30 AM CDT Laureen Bojorquez MD LAB_1 Performing Organization Address [facility] Phon e Number HP CONVERSION GT (Gamma GT) (08/17/2004 10:30 AM CDT) athologist Signature Gamma-Glutamyl 35 5 - 85 U/L HP CONVERSION Transferase Specimen (Source) Anatomical Collection Method Collection Time Re ceived Time Location / / Volume Laterality 08/17/2004 10:30 AM CDT Laureen Bojorquez MD LAB_1 Performing Organization Address [facility] Phon e Number HP CONVERSION Urinalysis Complete Hold Culture (08/17/2004 10:19 AM CDT) [facility] Method Time Signature U Specific 1.020 1.005 - 25 HP CONVERSION [place] pH Urine 7.5 4.5 - 7.5 HP CONVERSION Protein Urine Negative Neg-Trac HP CONVERSION Glucose, Negative Neg-Trac HP CONVERSION Qualitative U Ketones Negative Negative HP CONVERSION U BILI Negative Negative HP CONVERSION Blood Urine Negative Negative HP CONVERSION Nitrite Urine Negative Negative HP CONVERSION Leukocyte Negative Negative HP CONVERSION Esterase Urine Urobilinogen Negative 0.2 - 1.0 HP CONVERSION Urine White Blood 0-2/HPF 0 - 3 HP CONVERSION Cells Urine Epithelial Cells Few Few /HPF HP CONVERSION Crystals Amorph None HP CONVERSION Specimen (Source) Anatomical Collection Method Collection Time Re ceived Time Location / / Volume Laterality 08/17/2004 10:19 AM CDT Laureen Bojorquez MD LAB_1 Performing Organization Address [facility] Phon e Number HP CONVERSION documented in this encounter Visit Diagnoses Not on filedocumented in this encounter Care Teams Lye Treater Relationship Specialty Start Date End Date Theresa Hardy MD PCP - General 05/22/10 03/15/[address] [place] [address] documented as of this encounter
--- OUTSIDE RECORDS SUMMARY | 2021-11-09 06:16 | XMS_ITS | Encounter Summary ---
:1970 Author Organization [facility] Address [address], [place] [address] Care Team Providers Name Role Phone Theresa Hardy MD Primary Care Provider Reason for Visit Reason Comments Other Encounter Details Date Type Department Care Team Description 03/19/2006 Telephone [facility] Geovanny Alamo MD Other [address] [place] [address] [place], [place] [phone] (Wo rk) Social History Tobacco Use Types [...] Date Recorded Female 02/21/2021 8:36 PM DIRECTOR ORANGE documented as of this encounter [facility], Message - 03/19/2006 10:08 AM CST Phone Note filed by [facility] at 06/05/10 3094 Author: Message Center Service: (none) Author Type: (none) Filed: 06/05/10 1513 Note Time: 03/19/06 1008 Status: Signed [employer] Senior Sergeant: Nate Geneva Prescription Refill Please provide enough refills to last until patient's next visit. Comment:- Pharmacy Seq #:-[phone] Pharm[facility] Street or City:-[place] Clinician Name:-Domitila Hardy Drug Name/Strength:-Topamax 100MG Sig: Dose/Route/Freq:-take one tab twice daily Quantity & Last Fill:-60 02/17/06 Created on 19Mar2006 10:08am by ISRAEL VAZQUEZ On 19Mar2006 10:36am GEOVANNY MCCURDY wrote: Ok. Acknowledged by GEOVANNY MCCURDY on 10:36am CTOR ORANGE documented in this encounter Plan of Treatment Not on filedocumented as of this encounter Visit Diagnoses Not on filedocumented in this encounter Care Teams Food Order Expediter Relationship Specialty Start Date End Date Theresa Hardy MD PCP - General 05/22/10 03/15/21 [address] [place] [address] documented as of this encounter
--- OUTSIDE RECORDS SUMMARY | 2021-11-09 06:16 | XMS_ITS | Encounter Summary ---
:1970 Author Organization [facility] Address [address] [place] [address] Care Team Providers Name Role Phone Theresa Hardy MD Primary Care Provider Encounter Details Date Type Department Care Team Description 10/01/2004 PN Conversion Only [place] N Evelyn Fofana [address] [facility] [place] [place] [address] [address] [facility] [address] [place] [address] Social History Tobacco Use Types [...] at Date Recorded Female 02/21/2021 8:36 PM THERMODYNAMICS ENGINEER documented as of this encounter Plan of Treatment Not on filedocumented as of this encounter Procedures Procedure Name Priority Date/Time Associated Comments Diagnosis URINE CULTURE Routine 10/01/2004 9:32 PM Results for this CDT procedure are i n the results section. URINALYSIS COMPLETE Routine 10/01/2004 8:46 PM Re sults for this HOLD CULTURE CDT procedure are i n the results section. COMPLETE BLOOD Routine 10/01/2004 8:46 PM Results for this COUNT-W/DIFF CDT procedure are i n the results section. documented in this encounter Results Urine Culture (10/01/2004 9:32 PM CDT) [facility] SEE TEXT HP CONVERSION Comment: Patient: MARII JOSÉ Culture, Urine @ ?Collected: ??[id number] ??[id number] Source: Clean Ca ?Processed: ??[id number] ??2131 ? 1V,SENS Final Report ------ ?[id number] ??[id number] No growth @ = URINE CULTURE Performed at ??[address] [facility], [place], [place] ?[address] Specimen (Source) Anatomical Collection Method Collection Time Re ceived Time Location / / Volume Laterality 10/01/2004 9:32 PM CDT Evelyn Fofana PA-C LAB_1 Performing Organization Address City/State/ZIP Code Phon e Number HP CONVERSION (ABNORMAL) Complete Blood Count-W/Diff (10/01/2004 8:46 PM CDT) [facility] gist Method Time Signature White Blood Cell 6.7 3.8 - 11.0 HP CONVERSIO N Count K/cmm Red Blood Cell 4.38 3.70 - HP CONVERSION Count 5.20 m/cmm Hemoglobin 14.3 11.8 - HP CONVERSION 15.5 gm/dL Hematocrit 41.9 35.0 - HP CONVERSION 46.0 % Mean Corpuscular 95.7 80.0 - HP CONVERSION Volume 100.0 fl Mean Corpuscular 32.7 27.0 - HP CONVERSION Hemoglobin 34.0 pg Mean Corpuscular 34.2 32.0 - HP CONVERSION Hemoglobin Conc 36.5 gm/dL [place] RDW 11.4 11.0 - HP CONVERSION 15.0 % Platelet Count 172 140 - 450 HP CONVERSION k/cmm Differential Auto-Dif No normal HP CONVERSION Verify range Neutrophils 5.4 2.0 - 7.5 HP CONVERSION Absolute Count K/cmm Neutrophil 80.8 (H) 50.0 - HP CONVERSION 75.0 % Lymphocyte % 15.2 (L) 20.0 - HP CONVERSION 40.0 % Monocyte 3.8 (L) 5.0 - 14.0 HP CONVERSION % Eosinophil 0.1 0.0 - 6.0 HP CONVERSION % Basophil % 0.1 0.0 - 2.0 HP CONVERSION % Specimen (Source) Anatomical Collection Method Collection Time Re ceived Time Location / / Volume Laterality 10/01/2004 8:46 PM CDT Evelyn Fofana PA-C LAB_1 Performing Organization Address City/State/ZIP Code Phon e Number HP CONVERSION (ABNORMAL) Urinalysis Complete Hold Culture (10/01/2004 8:46 PM CDT) [facility] Method Time Signature U Specific 1.025 1.005 - 25 HP CONVERSION [place] pH Urine 5.5 4.5 - 7.5 HP CONVERSION Protein Urine Negative Neg-Trac HP CONVERSION Glucose, Negative Neg-Trac HP CONVERSION Qualitative U Ketones 15 mg/dL Negative HP CONVERSION (A) U BILI Negative Negative HP CONVERSION Blood Urine Negative Negative HP CONVERSION Nitrite Urine Negative Negative HP CONVERSION Leukocyte Negative Negative HP CONVERSION Esterase Urine Urobilinogen Negative 0.2 - 1.0 HP CONVERSION Urine White Blood 10-24/HP 0 - 3 HP CONVERSION Cells Urine (A) Red Blood Cells 0-2/HPF 0 - 2 HP CONVERSION Urine Epithelial Cells Few Few /HPF HP CONVERSION Bacteria Urine Moderate None HP CONVERSION (A) Urine Mucus Few None HP CONVERSION Specimen (Source) Anatomical Collection Method Collection Time Re ceived Time Location / / Volume Laterality 10/01/2004 8:46 PM CDT Evelyn Fofana PA-C LAB_1 Performing Organization Address City/State/ZIP Code Phon e Number HP CONVERSION documented in this encounter Visit Diagnoses Not on filedocumented in this encounter Care Teams Glass Production Machine Operator Relationship Specialty Start Date End Date Theresa Haryd MD PCP - General 05/22/10 03/15/[address] [place] [address] documented as of this encounter
--- OUTSIDE RECORDS SUMMARY | 2021-11-09 06:16 | XMS_ITS | Encounter Summary ---
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 She has now finished that Rx and she was told to call in to have either the 25mg changed to a higher dose (so she is not having to take 4 a day) or have the med changed all together. Pt uses [facility] in [place]- [phone]. Fifi can be reached at [phone]. Created on 02Apr2004 8:30am by STORMY VAZQUEZ On 02Apr2004 11:20am VENKATA VEGA wrote: carol please confirm rosalbants to continue and has been taking daily dose of topamax 100mg daily and if this is so call in script for #30 with 6 refills Acknowledged by VENKATA VEGA on 11:20am On 02Apr2004 11:32am CAROL STEVENS wrote: Pt. confirmed she wants to take 1tab 100mg daily as migraine prevention. Rx was called. Acknowledged by CAROL STEVENS on 11:32am documented in this encounter Plan of Treatment Not on filedocumented as of this encounter Visit Diagnoses Not on filedocumented in this encounter Care Teams Cooling Pan Tender Relationship Specialty Start Date End Date Theresa Hardy MD PCP - General 05/22/10 03/15/21 [address] [place] [address] documented as of this encounter
--- OUTSIDE RECORDS SUMMARY | 2021-11-09 06:16 | XMS_ITS | Encounter Summary ---
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 She put heat on it. I told her today to ice it (1st 24 hours, and then she can use heat) , no more that 20 minutes at a time...she can do this hourly if she can find time. Also she can take ibpuprofen or aleve with food. Also she can purchase a donut at a local pharmacy and this will keep pressure off her tailbone when she sits. If not getting better, or if worse in one week we should see her. Created on 27Mar2004 11:39am by VIJI HAYES documented in this encounter Plan of Treatment Not on filedocumented as of this encounter Visit Diagnoses Not on filedocumented in this encounter Care Teams Cylinder Die Machine Helper Relationship Specialty Start Date End Date Theresa Hardy MD PCP - General 05/22/10 03/15/21 [address] [place] [address] documented as of this encounter
--- OUTSIDE RECORDS SUMMARY | 2021-11-09 06:16 | XMS_ITS | Encounter Summary ---
:1970 Author [facility] Address [address] [address] Care Team Providers Name Role Phone Theresa Hardy MD Primary Care Provider Encounter Details Date Type Department Care Team Description 03/20/2006 Office Visit [facility] Erik Winters [address] [place] [address] Social History Tobacco Use Types [...] at Date Recorded Female 02/21/2021 8:36 PM REMARKETING REP documented as of this encounter Plan of Treatment Not on filedocumented as of this encounter Visit Diagnoses Not on filedocumented in this encounter Care Teams Route Driver Coin Machines Relationship Specialty Start Date End Date Theresa Hardy MD PCP - General 05/22/10 03/15/21 [address] [place] [address] [place] [id number] documented as of this encounter
--- OUTSIDE RECORDS SUMMARY | 2021-11-09 06:16 | XMS_ITS | Encounter Summary ---
:1970 [facility] Address [address] [address] Care Team Providers Name Role Phone Mariaelena Hardy MD Primary Care Provider Encounter Details Date Type Department Care Team Description 03/04/2006 Office Visit [facility] [place] [address] [place] [address] [place], [place] [id number] (Wo rk) Social History Tobacco Use Types [...] at Date Recorded Female 02/21/2021 8:36 PM REMOTE CODERS documented as of this encounter Last Filed Vital Signs Vital Sign Reading Time Taken Comments Blood Pressure 132/68 03/04/2006 12:56 PM REMOTE CODERS Pulse 90 03/04/2006 12:56 PM C: Radial Re gular REMOTE CODERS Temperature - - Respiratory Rate 24 03/04/2006 12:56 PM REMOTE CODERS Oxygen Saturation - - Inhaled Oxygen - - Concentration Weight 65.8 kg (144 lb 15.9 03/04/2006 12:56 PM C: 65.8 kg oz) REMOTE CODERS Height - - Body Mass Index 29.29 03/18/2005 9:04 AM REMOTE CODERS documented in this encounter Progress Notes Mariaelena Hardy MD - 03/04/2006 12:01 AM CST Progress Notes signed by Mariaelena Hardy MD at 03/24/06 1357 Author: Mariaelena Hardy MD Service: (none) Author Type: Physician Filed: 06/08/10 3436 Note Time: 03/04/06 0001 Status: Signed Grease Maker: Mariaelena Hardy MD (Physician) NAME: MARII JOSÉ MR#: [id number] ACCT: [id number] VISIT: [id number] DICTATING CLINICIAN: MARIAEELNA HARDY MD JOB: [id number] LOC: 502 CLINIC PROGRESS NOTE DATE OF VISIT: 03/04/2006 SUBJECTIVE: : 1970. CHIEF COMPLAINT: Headache. HISTORY OF PRESENTING ILLNESS: Marii is a 35-year-old lady who today came in with concerns of headache. According to the patient, she does have a history of migraine headaches but they have been stable. She did not have a migraine headache for 1 year. According to the patient, since then she states she is having headache that has not been improving. According to the patient, she has had a headache for 5 days. According to the patient, on Friday she painted her bathroom and after that is when she started having headache. She woke on Friday with more throbbing headache in the occipital area. Patient took Imitrex; it did not help. According to the patient, the headache is intermittent and, when she gets it, is mostly right in the frontal area, temporal. She is having this constant ??pulling?? sensation in the occipital area and the neck area. According to the patient, she did try some Aleve and that helps a little bit for the headache. Otherwise, the headache is not associated with nausea or vomiting. The patient says she gets some photophobia. Patient denies for any associated numbness, tingling in the extremities or any weakness. Today, according to the patient, the headache is 1/10 and it is still ??dominantly?? in the occipital area and is worse with movement. She denies any blurry vision. REVIEW OF SYSTEMS: Complete review of systems negative. She denies any fever. MEDICATIONS: Reviewed from [facility] today. ADR/ALLERGIES: REVIEWED FROM [facility]. SOCIAL HISTORY: Patient is nonsmoker. OBJECTIVE: VS: BP: 132/68. P: 90. R: 24. Wt: 145 lb. GENERAL: Patient is comfortable. No acute distress. CARDIOVASCULAR: S1 and S2 regular. LUNGS: Clear to auscultation bilaterally. HEENT: Pupils are reactive to light. NEURO: No focal findings. Cranial nerves are intact. Strength 5/5 upper and lower extremities. Sensations are intact. Reflexes are 2+ positive bilaterally. MUSCULOSKELETAL: Patient is tender on the paracervical area on the right side of the neck area and also on the upper back. Otherwise patient has normal sensations, has been feeling with the flexion of the neck. Otherwise no cervical spine tenderness is present. ASSESSMENT: Tension headache. PLAN: I gave the patient prescription of Flexeril to use 3 times a day as needed. Discussed the side effects of the medication and sedation. Given also the prescription of Naprosyn 500 mg p.o. b.i.d. as needed . Patient has been recommended that if the symptoms are not resolved or helped with the medication, recommend to follow up physical therapy for further stretching and strengthening of the back/neck muscles. Which the patient agreed. Side effects of the medication have been reviewed. Recommend to follow up if headache is not improved, which the patient agreed. SS:[id number] C: 03/07/06 09:36 DOCUMENT: [id number] TE CODERS documented in this encounter Plan of Treatment Not on filedocumented as of this encounter Visit Diagnoses Not on filedocumented in this encounter Care Teams Forms Builder Relationship Specialty Start Date End Date Mariaelena Hardy MD PCP - General 05/22/10 03/15/21 [address] [address] documented as of this encounter
--- OUTSIDE RECORDS SUMMARY | 2021-11-09 06:16 | XMS_ITS | Encounter Summary ---
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 Additional Symptoms: Diarrhea since last Friday. Pt was seen in the ER on of last week because she had rectal bleeding with her diarrhea. Diarrhea seemed to subside to some degree until this am now has had 3 diarrhea stools this am. Pt was able to collect a stool sample. PATIENT INFORMATION: Status: Not --- Breast-Feeding Status: Not breast feeding INTERIM/HOME MANAGEMENT RECOMMENDATIONS: For diarrhea: promote adequate hydration while recovering from diarrhea. Drink dilute half-strength flat soda, Gatorade or clear fruit juice supplemented with dilute, clear chicken or beef broth. If too nauseated to drink fluids use ice chips. Avoid alcohol, smoking, caffeine, milk and dairy products. Rest the bowel if stomach feels upset or crampy. If hungry and wanting to eat choose foods that are starchy, not spicy and easy to digest. Wash hands after using the lavatory. For rectal discomfort: soak in warm tub three times a day for 10-15 minutes. Apply Tucks pads to rectal area twice a day and after BMs. Use soft, white, unscented tissue to reduce irritation. Pat dry, do not wipe. Information given per: [facility] Vomiting/Diarrhea Nursing Reference Advised to callback if any of the following occur: symptoms of dehydration, change in mental or functional abilities, dry mouth, fever that develops after 24 hours of vomiting, excess thirst, no urinary output for 12 hours, blood in stools, no improvement after home management, symptoms persist or worsen, any other questions or concerns. PLAN: SCHEDULED APPOINTMENT WITHIN 12 HOURS Pt was scheduled with at the [facility] for today at 2:30pm. Patient/Caller agrees with plan and denies additional questions. Denies any emergent, urgent symptoms Data collected by MAINTENANCE ENGINEER OIL FIELD, Clinician sign off needed. Created on 31Dec2004 9:08am by EDNA OLIVIA On 31Dec2004 3:14pm GODWIN CARDONA wrote: Review of the audit trail shows that the appt. is cancelled. Acknowledged by GODWIN CARDONA on 3:14pm NDING SUPERVISOR documented in this encounter Plan of Treatment Not on filedocumented as of this encounter Visit Diagnoses Not on filedocumented in this encounter Care Teams Fish Receiver Relationship Specialty Start Date End Date Theresa Hardy MD PCP - General 05/22/10 03/15/21 [address] [place] [address] documented as of this encounter
--- OUTSIDE RECORDS SUMMARY | 2021-11-09 06:16 | XMS_ITS | Encounter Summary ---
:1970 Author [facility] Address [address], [place] [address] Care Team Providers Name Role Phone Theresa Hardy MD Primary Care Provider Encounter Details Date Type Department Care Team Description 12/21/2004 Office Visit [facility] [place] [address] [address] [place] [address] Social History Tobacco Use Types [...] at Date Recorded Female 02/21/2021 8:36 PM VETERINARY BACTERIOLOGIST documented as of this encounter Last Filed Vital Signs Vital Sign Reading Time Taken Comments Blood Pressure 145/70 12/21/2004 8:41 AM VETERINARY BACTERIOLOGIST Pulse 80 12/21/2004 8:41 AM VETERINARY BACTERIOLOGIST Temperature 36.9 ??C (98.4 ??F) 12/21/2004 8:41 AM ORAL C: 3 6.9 C VETERINARY BACTERIOLOGIST Respiratory Rate 22 12/21/2004 8:41 AM VETERINARY BACTERIOLOGIST Oxygen Saturation 98% 12/21/2004 8:41 AM VETERINARY BACTERIOLOGIST Inhaled Oxygen Concentration - - Weight - - Height - - Body Mass Index - - documented in this encounter Progress Notes Chance Martines MD - 12/21/2004 12:01 AM CST Progress Notes signed by Chance Martines MD at 01/18/05 1610 Author: Chance Martines MD Service: (none) Author Type: Physician Filed: 06/08/10 0808 Note Time: 12/21/04 0001 Status: Signed City Supervisor: Chance Martines MD (Physician) NAME: MARII JOSÉ MR: [id number] ACCT: [id number] VISIT: [id number] DICTATING CLINICIAN: CHANCE MARTINES MD JOB: [id number] CLINIC PROGRESS NOTE DATE OF VISIT: 12/21/2004 SUBJECTIVE: This patient has had a cough for about a week and occasionally has some grayish-whitish phlegm, but has not had a fever. She does not feel short of breath, but has noted a little bit of sinus drainage. PAST MEDICAL HISTORY: Includes using an inhaler once in the past, but no other respiratory problems. SOCIAL HISTORY: She does not smoke. ADR/ALLERGIES: NO ALLERGIES TO MEDICINES. MEDICATIONS: She does take Topamax for migraines and does take control pills. Denies the possibility of . REVIEW OF SYSTEMS: Otherwise, completely negative. OBJECTIVE: VS: BP: Slightly elevated and she knows she should recheck that with her regular doctor. T: 98.4. Cough is slightly bronchial. LUNGS: Clear. She does have slightly swollen anterior glands with some sinus drainage. ASSESSMENT: Early sinusitis and bronchitis. PLAN: Keflex 500 mg t.i.d. times 10 days and backup methods for control while on the antibiotics. She should follow up if not improved quickly and completely with the medication. She has no tenderness to palpation and on the back her chest, heart, and lungs were fine. Early in the week she had felt a little bit of muscle pulling or pain when she coughed, but she says that is now resolved, but she will follow up if that would recur. [id number] C: 12/21/04 15:47 DOCUMENT: [id number] RINARY BACTERIOLOGIST documented in this encounter Plan of Treatment Not on filedocumented as of this encounter Visit Diagnoses Not on filedocumented in this encounter Care Teams Compliance Quality Performance Analyst Relationship Specialty Start Date End Date Theresa Hardy MD PCP - General 05/22/10 03/15/21 [address] [place] [address] documented as of this encounter
--- OUTSIDE RECORDS SUMMARY | 2021-11-09 06:16 | XMS_ITS | Encounter Summary ---
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 documented as of this encounter Last Filed Vital Signs Vital Sign Reading Time Taken Comments Blood Pressure 120/80 08/17/2004 8:57 AM CDT Pulse 80 08/17/2004 8:57 AM CDT Temperature - - Respiratory Rate - - Oxygen Saturation - - Inhaled Oxygen Concentration - - Weight 76.6 kg (168 lb 15.7 oz) 08/17/2004 8:57 AM CDT C: 76.7kg Height - - Body Mass Index - - documented in this encounter Progress Notes Venkata Bojorquez MD - 08/17/2004 12:01 AM CDT Progress Notes signed by Venkata Bojorquez MD at 10/15/04 1447 Author: Venkata Bojorquez MD Service: (none) Author Type: Physician Filed: 06/08/10 0549 Note Time: 08/17/042021 Status: Signed Book Cleaner: Venkata Bojorquez MD (Physician) NAME: MARII JOSÉ MR: [id number] ACCT: [id number] VISIT: [id number] DICTATING CLINICIAN: VENKATA BOJORQUEZ MD JOB: [id number] CLINIC PROGRESS NOTE DATE OF VISIT: 08/17/2004 SUBJECTIVE: A 34-year-old female comes in today with several concerns. The first is that of right sided abdominal pain. Describes the pain as located underneath the rib. She has had the pain on a couple different occasions. The most recent was on weekend and it awoke her from her sleep with a sharp pain rated 8 out of 10. Because it awoke her from her sleep, there was no association with any recent food intake with nausea, no vomiting, no recent urinary symptoms, fevers, chills. Had not seen any blood in her stool. Reports that on occasion she has had pain in the epigastrium but nothing like this was. She has a family history of kidney stones and a sister with a history of gallstones and she was concerned. She is on Topamax and heard that it could increase her risk of having a kidney stone. The patient also comes in for refills of medications for migraines. Migraines are long-standing. They usually come in clusters lasting 3 to 4 days, unilateral behind the eye associated with nausea. No emesis. There is photophobia, phonophobia. She rates pain 8-9 out of 10, throbbing type pain. It seems to be associated with changes in sleeping pattern, either getting too much or too little sleep. Not associated with menses. MEDICATIONS: Imitrex, Compazine, Topamax, logestrol. ADR/ALLERGIES: NO KNOWN DRUG ALLERGIES. PAST MEDICAL HISTORY: Enteric glucose tolerance, eczema, amenorrhea, ureterolithiasis. SOCIAL HISTORY: , 3 children. Homemaker. No tobacco, rare alcohol. OBJECTIVE: VS: BP: 120/80. P: 80. Wt: 169. The patient is pleasant, healthy, mildly obese female in no acute distress. HEAD: NC/AT. Eyes: PERRLA, EOMI, conjunctivae clear, sclerae non icteric. No lid lag or exophthalmos. NECK: Supple. No LA. No TM. LUNGS: CTA. HEART: Regular with distinct S1, S2. No murmurs or extra sounds. BACK: No spinal or CVA tenderness. ABDOMEN: Bowel sounds present, soft, nontender. Unable to reproduce the pain. No HSM. No masses. ASSESSMENT: Abdominal pain of unclear etiology. Possibilities include cholelithiasis, pancreatitis. However, patient awoke with the pain and was not related to any recent food intake. Also consider kidney stone. The patient has had these in the past. A urinary tract infection or possibly irritable bowel syndrome. Patient did say that she gets crampy abdominal pain and will on occasion have loose stools as well. Also consider gastritis or GERD. However, patient has never had any symptoms in the past and she denied symptoms of heartburn or nasty taste in her mouth. PLAN: 1. Will check a right upper quadrant ultrasound. Labs: AST, ALT, alkaline phosphatase, total bilirubin, direct bilirubin, GGT, CBC, UA, and schedule a right upper quadrant ultrasound. Patient should make a follow up appointment in approximately 2 weeks after she has completed her right upper quadrant ultrasound and go over labs for review. If her symptoms should acutely worsen, should she develop fevers, chills, she should be seen acutely. 2. Migraine headaches. Was given refills of her Imitrex and Topamax. These have been stable and no changes in character. She will follow up as above. SRR:[id number] C: 10/14/04 14:06 DOCUMENT: [id number] documented in this encounter Plan of Treatment Not on filedocumented as of this encounter Visit Diagnoses Not on filedocumented in this encounter Care Teams Regulatory Affairs Analyst Relationship Specialty Start Date End Date Theresa Hardy MD PCP - General 05/22/10 03/15/21 [address] [place] [address] documented as of this encounter
--- OUTSIDE RECORDS SUMMARY | 2021-11-09 06:16 | XMS_ITS | Encounter Summary ---
:1970 [facility] Address [address], [place] [address] Care Team Providers Name Role Phone Theresa Hardy MD Primary Care Provider Encounter Details Date Type Department Care Team Description 07/03/2006 Office Visit [facility] Liudmila De Paz, PA-C [id number] [place] [address] [phone] (Wo rk) Social History Tobacco Use Types [...] at Date Recorded Female 02/21/2021 8:36 PM TONGUE AND QUARTER STITCHER documented as of this encounter Last Filed Vital Signs Vital Sign Reading Time Taken Comments Blood Pressure 106/70 07/03/2006 1:06 PM CDT Pulse 78 07/03/2006 1:06 PM CDT Temperature - - Respiratory Rate - - Oxygen Saturation - - Inhaled Oxygen Concentration - - Weight 68 kg (149 lb 15.7 oz) 07/03/2006 1:06 PM CDT C: 68.0kg Height - - Body Mass Index 30.29 03/31/2006 8:58 AM TONGUE AND QUARTER STITCHER documented in this encounter Progress Notes Liudmila [place] PA-C - 07/03/2006 12:01 AM CDT Progress Notes signed by Liudmila [place] PA-C at 07/10/06 1259 Author: Liudmila [place] PA-C Service: (none) Author Type: Physician Fishing Rod Marker Filed: 06/08/10 1927 Note Time: 07/03/06 0001 Status: Signed Clarifier: Liudmila [place] PA-C (Physician Fishing Rod Marker) NAME: MARII JOSÉ MR#: [id number] ACCT: [id number] VISIT: [id number] DICTATING CLINICIAN: MASHA GAMBLE JOB: [id number] LOC: 502 CLINIC PROGRESS NOTE DATE OF VISIT: 07/03/2006 SUBJECTIVE: Marii is a 36-year-old female who comes to the clinic today concerned about vaginal itching that she has had for about 1-2 weeks. She used some uehr-jbp-lnjexaf yeast infection medicine a couple of days ago; it did not make much of a difference. Denies dysuria, denies vaginal discharge or a bad odor, denies using any new products, soaps, or pads. She is and monogamous. No back or abdominal pain. PAST MEDICAL HISTORY: Reviewed and updated in the health profile in [employer] today. MEDICATIONS: Reviewed and updated in the health profile in [employer] today. ADR/ALLERGIES: REVIEWED AND UPDATED IN THE HEALTH PROFILE IN [employer] TODAY. OBJECTIVE: VS: BP: 106/70. P: 78. Wt: 150. CONSTITUTIONAL: Sitting comfortably, appears well. Eyes; sclerae and conjunctivae clear. ABDOMEN: Soft, nontender. No CVA tenderness. : External genitalia normal. No rashes or lesions. Vagina is pink and rugated. There is a heterogenous white discharge noticed in the vaginal vault. Cervix appears normal. DIAGNOSTICS: Wet prep was normal. ASSESSMENT: Monilial vaginal infection. PLAN: Treatment with Diflucan. Repeat in 1 week as needed. Follow up if symptoms are not getting better. AMS:[id number] C: 07/04/06 14:46 DOCUMENT: [id number] documented in this encounter Plan of Treatment Not on filedocumented as of this encounter Visit Diagnoses Not on filedocumented in this encounter Care Teams Raw Cheese Worker Relationship Specialty Start Date End Date Theresa Hardy MD PCP - General 05/22/10 03/15/[address] [place] [address] documented as of this encounter
--- OUTSIDE RECORDS SUMMARY | 2021-11-09 06:16 | XMS_ITS | Encounter Summary ---
:1970 [facility] Address [address] [address] Care Team Providers Name Role Phone Mariaelena Hardy MD Primary Care Provider Reason for Visit Reason Comments Other Encounter Details Date Type Department Care Team Description 03/31/2006 Telephone [facility] Mariaelena Juan MD Other [address] [place] [address] [place], [place] [phone] (Wo rk) Social History Tobacco Use Types [...] at Date Recorded Female 02/21/2021 8:36 PM SEWING PATTERN LAYOUT TECHNICIAN documented as of this encounter Progress Notes Center, Message - 03/31/2006 12:50 PM CST Phone Note filed by [employer] at 06/05/10 6010 Author: Message Center Service: (none) Author Type: (none) Filed: 06/05/10 1551 Note Time: 03/31/06 1250 Status: Signed Fleet Administrator: Message Clementon MESSAGE TO CARE TEAM NAME OF CALLER:Fifi [place] NAME OF CLINICIAN: Dr Hardy MESSAGE:I saw Dr Hardy today and she said she would fax my three perscriptions in. [facility] in [place] only received two of the three. They said they did not receive the rx for the Levsin .125 mg. Could someone refax this one for me? PHARMACY NAME: [facility] PHONE #: [phone] CALL BACK PHONE #:[phone] BEST TIME TO CALL BACK:anytime Is it OK to leave detailed message on [employer]? Created on 31Mar2006 12:50pm by ESTEBAN ANDERSON On 31Mar2006 1:58pm MARIAELENA HARDY wrote: faxed. Acknowledged by MARIAELENA HARDY on 1:58pm NG PATTERN LAYOUT TECHNICIAN documented in this encounter Plan of Treatment Not on filedocumented as of this encounter Visit Diagnoses Not on filedocumented in this encounter Care Teams Electrical Cad Technician Relationship Specialty Start Date End Date Mariaelena Hardy MD PCP - General 05/22/10 03/15/[address] [place] [address] documented as of this encounter
--- OUTSIDE RECORDS SUMMARY | 2021-11-09 06:16 | XMS_ITS | Encounter Summary ---
:1970 Author Organization [facility] Address [address] [address] Care Team Providers Name Role Phone Mariaelena Hardy MD Primary Care Provider Reason for Visit Reason Comments Other Encounter Details Date Type Department Care Team Description 11/19/2005 Telephone [facility] Mariaelena Juan MD Other [address] [place] [address] [place], [place] [address] (Wo rk) Social History Tobacco Use Types [...] at Date Recorded Female 02/21/2021 8:36 PM FIELD SEISMOLOGIST documented as of this encounter Progress Notes Center, Message - 11/19/2005 10:48 AM CDT Phone Note filed by [employer] at 06/05/10 1952 Author: Message Center Service: (none) Author Type: (none) Filed: 06/05/10 0924 Note Time: 11/19/05 1048 Status: Signed Realty Loan Specialist: Message Weatherby Prescription Refill Please provide enough refills to last until patient's next visit. Comment:- Pharmacy Seq #:-[phone] Pharmacy Name[facility] Street or City:-[place] Clinician Name:-Domitila Hardy Drug Name/Strength:-Topamax 100MG Sig: Dose/Route/Freq:-take one tab twice daily Quantity & Last Fill:-60 10/20/05 Created on 19Nov2005 10:48am by ISRAEL VAZQUEZ On 19Nov2005 12:16pm MARIAELENA HARDY wrote: faxed. Acknowledged by MARIAELENA HARDY on 12:16pm D SEISMOLOGIST documented in this encounter Plan of Treatment Not on filedocumented as of this encounter Visit Diagnoses Not on filedocumented in this encounter Care Teams Gastroenterology Physician Relationship Specialty Start Date End Date Mariaelena Hardy MD PCP - General 05/22/10 03/15/21 [address] [place] [address] documented as of this encounter
--- OUTSIDE RECORDS SUMMARY | 2021-11-09 06:16 | XMS_ITS | Encounter Summary ---
:1970 [facility] Address [address], [place] [address] Care Team Providers Name Role Phone Theresa Hardy MD Primary Care Provider Encounter Details Date Type Department Care Team Description 12/25/[address] [place] [place] [address] [facility] [address] [facility] [place] [address] [place] [phone] [address] Social History Tobacco Use Types Packs/Day [...] at Date Recorded Female 02/21/2021 8:36 PM REINFORCING STEEL WORKER documented as of this encounter Plan of Treatment Not on filedocumented as of this encounter Visit Diagnoses Not on filedocumented in this encounter Care Teams Cover Seamer Relationship Specialty Start Date End Date Theresa Hardy MD PCP - General 05/22/10 03/15/21 [address] [place] [address] documented as of this encounter
--- OUTSIDE RECORDS SUMMARY | 2021-11-09 06:16 | XMS_ITS | Encounter Summary ---
:1970 [facility] Address [address] [place] [address] Care Team Providers Name Role Phone Theresa Hardy MD Primary Care Provider Encounter Details Date Type Department Care Team Description 03/07/2004 PN Conversion Only [place] [facility] [place] Luareen Bojorquez, [address] [place] [address] [address] [place] [address] (Wo rk) Social History Tobacco [...] at Date Recorded Female 02/21/2021 8:36 PM ROUTE JUMPER documented as of this encounter Plan of Treatment Not on filedocumented as of this encounter Procedures Procedure Name Priority Date/Time Associated Comments Diagnosis WET PREP Routine 03/07/2004 1:30 PM Results f or this ROUTE JUMPER procedure are i n the results section. GLUCOSE Routine 03/07/2004 10:28 AM Results for this ROUTE JUMPER procedure are i n the results section. HGB A1C Routine 03/07/2004 10:28 AM Results for this ROUTE JUMPER procedure are i n the results section. ANATOMICAL PATH Routine 03/07/2004 7:24 AM Result s for this LIQUID BASED ROUTE JUMPER procedure are i n the results section. documented in this encounter Results Wet Prep (03/07/2004 1:30 PM ROUTE JUMPER) athologist Signature Wet Prep SEE TEXT HP CONVERSION Comment: Patient: MARII JOSÉ Wet Prep @ ?Collected: ??38MMY21 ??1330 Source: Vaginal ? Processed: ?1330 ? V Final Report ------ Many WBCs seen Moderate epithelial cells seen No Trichomonas seen Moderate yeast seen No clue cells seen @ = WET PREP Performed at ??[address] [place], [place] ??[address] Specimen (Source) Anatomical Collection Method Collection Time Re ceived Time Location / / Volume Laterality 03/07/2004 1:30 PM ROUTE JUMPER Laureen Bojorquez MD LAB_1 Performing Organization Address City/State/ZIP Code Phon e Number HP CONVERSION Glucose (03/07/2004 10:28 AM ROUTE JUMPER) athologist Signature Lab Glucose 99 60 - 100 HP CONVERSION mg/dL Specimen (Source) Anatomical Collection Method Collection Time Re ceived Time Location / / Volume Laterality 03/07/2004 10:28 AM ROUTE JUMPER Laureen Bojorquez MD LAB_1 Performing Organization Address City/State/ZIP Code Phon e Number HP CONVERSION Hgb A1c (03/07/2004 10:28 AM ROUTE JUMPER) P athologist Signature HGB A1C 5.1 <6.0 % HP CONVERSION Specimen (Source) Anatomical Collection Method Collection Time Re ceived Time Location / / Volume Laterality 03/07/2004 10:28 AM ROUTE JUMPER Laureen Bojorquez MD LAB_1 Performing Organization Address City/[facility] Phon e Number HP CONVERSION Pap Smear (03/07/2004 7:24 AM ROUTE JUMPER) Patholo gist Method Time Signature PAP Smear SEE TEXT No normal HP CONVERSION Liquid Based range Comment: Patient: MARII JOSÉ ? CERVICAL CYTOLOGY REPORT Pathology # ??[id number] ?Date Obtained: ? Date Received: CYTOLOGIC IMPRESSION: Negative for intraepithelial lesion or m alignancy. Fungal organisms identified. ? AAKASH TIONAL DATA LMP: ?02-14-04 CLINICAL HIST ? PREV PAP NORM, 12-20 LIQUID BASED PAP CERVICAL SPECIMEN ADEQUACY: ?? Satisfactory. ENDOCERVICAL CELLS: ??Present. Verified 03/13/04 by: ??LBM ?(electronic signature) Specimen (Source) Anatomical Collection Method Collection Time Re ceived Time Location / / Volume Laterality 03/07/2004 7:24 AM ROUTE JUMPER Laureen Bojorquez MD LAB_1 Performing Organization Address City/State/ZIP Code Phon e Number HP CONVERSION documented in this encounter Visit Diagnoses Not on filedocumented in this encounter Care Teams Product Sales Engineer Relationship Specialty Start Date End Date Theresa Hardy MD PCP - General 05/22/10 03/15/21 [address] [place] [address] documented as of this encounter
--- OUTSIDE RECORDS SUMMARY | 2021-11-09 06:16 | XMS_ITS | Encounter Summary ---
:1970 Author Organization [facility] Address [address], [place] [address] Care Team Providers Name Role Phone Theresa Hardy MD Primary Care Provider Reason for Visit Reason Comments Other Encounter Details Date Type Department Care Team Description 08/12/2005 Telephone [facility], Message Other [address] [place] [address] Social History Tobacco Use Types [...] at Date Recorded Female 02/21/2021 8:36 PM FIRE INFORMATION OFFICER documented as of this encounter Progress Notes Center, Message - 08/12/2005 1:05 PM CDT Phone Note filed by [employer] at 06/05/1024 Author: [employer] Service: (none) Author Type: (none) Filed: 06/05/10540 Note Time: 08/12/05 1305 Status: Signed Cash Room Clerk: [employer] PRESCRIPTION REFILL Please provide enough refills to last until patient's next visit. Comment:- Pharmacy Seq #:-[phone] [facility] Street or City:-[place] Clinician Name:-Antony Drug Name/Strength:-Lo/Ovral-28 Sig:-Take 1 tab daily. Quantity:-28 Last Fill:-08/01/05 Created on 12Aug2005 1:05pm by PETTY ARTEAGA J On 13Aug2005 11:12am LINDSEY HELM wrote: Rx faxed. INFORMATION OFFICER documented in this encounter Plan of Treatment Not on filedocumented as of this encounter Visit Diagnoses Not on filedocumented in this encounter Care Teams Analog Ic Design Engineer Relationship Specialty Start Date End Date Theresa Hardy MD PCP - General 05/22/10 03/15/21 [address] [place] [address] documented as of this encounter
--- OUTSIDE RECORDS SUMMARY | 2021-11-09 06:16 | XMS_ITS | Encounter Summary ---
:1970 [facility] Address [address] [address] Care Team Providers Name Role Phone Theresa Hardy MD Primary Care Provider Encounter Details Date Type Department Care Team Description 03/07/2004 Office Visit [facility] [place] [address] [facility] [address] [place] [address] [place], [place] [phone] (Wo rk) Social History Tobacco Use Types [...] at Date Recorded Female 02/21/2021 8:36 PM SATELLITE SPECIALIST documented as of this encounter Progress Notes Venkata Bojorquez MD - 03/07/2004 12:01 AM CST Progress Notes signed by Venkata Bojorquez MD at 03/28/04 5847 Author: Venkata Bojorquez MD Service: (none) Author Type: Physician Filed: 06/08/10 0241 Note Time: 03/07/04 0001 Status: Signed Oil And Gas Lease Pumper: Venkata Bojorquez MD (Physician) NAME: MARII JOSÉ MR: [id number] ACCT: [id number] VISIT: [id number] DICTATING CLINICIAN: VENKATA BOJORQUEZ MD JOB: [id number] CLINIC PROGRESS NOTE DATE OF VISIT: 03/07/2004 SUBJECTIVE: A 33-year-old female comes in for well exam. MEDICATIONS: Low-Ogestrel 28, Topamax, amitriptyline, Imitrex. ADR/ALLERGIES: NO KNOWN DRUG ALLERGIES. PAST MEDICAL HISTORY: Migraines, eczema, amenorrhea, history of kidney stones. Surgeries: None. Fractures: Left arm. Other hospitalizations: Childbirth. 2, para 2-0-0-3. FAMILY HISTORY: See dictation 12/2002, unchanged. SOCIAL HISTORY: , three children, 8-year-old and 5-year-old twins. Homemaker. No tobacco. Alcohol rare. Caffeine one per day. No regular exercise. Does monthly self breast exams. Wears her seatbelt. Takes calcium supplements. REVIEW OF SYSTEMS: Weight stable. Energy good. No fevers, chills, respiratory, cardiac, GI symptoms. : Last menstrual period 02/14/04. Menses every 28 days, flow for five days. No dysmenorrhea. No history of abnormal Pap smears or sexually transmitted disease. She is complaining today of increased vaginal discharge, thick, whitish. No vaginal itching. Is on control pills. Normal musculoskeletal. Neuro: History of migraine headache, currently using Topamax as a preventative and amitriptyline. Uses Imitrex for acute migraines, which works well. Endocrine: Patient has history of glucose intolerance. Has not had polyuria, polydipsia, polyphagia. OBJECTIVE: VS: BP: 100/80. P: 108. Ht: 59 in. Wt: 173. GENERAL: The patient is a pleasant, healthy, moderately obese female in no distress. HEAD: NC/AT. Eyes: PERRLA, EOMI, conjunctivae clear, sclerae anicteric. Ear canals clear. TMs normal appearing. Mouth: Mucous membranes moist. No lesions. Posterior oropharynx is clear. Teeth, gums, tongue, lips healthy. NECK: Supple. No lymphadenopathy. No thyromegaly. No supraclavicular or infraclavicular lymphadenopathy. Breathing is nonlabored. LUNGS: CTA. HEART: Regular with distinct S1, S2. No murmurs or extra sounds. BACK: No spinal or CVA tenderness. BREASTS: Symmetrical bilaterally. Nipples everted. No skin changes. No palpable masses. No nipple discharge. Axillae: No LA. ABDOMEN: Bowel sounds present. Soft, nontender, nondistended. No HSM. No masses. GENITALIA: Normal female genitalia. No lesions. BSU normal. Vaginal and cervical mucosa is healthy appearing. There is a thick, whitish discharge in the vaginal vault. T and Y was obtained. Pap smear obtained. Bimanual: No cervical motion tenderness. Uterus is mobile, nontender, normal size and contour. Adnexal exam unremarkable. EXTREMITIES: No clubbing, cyanosis, or edema. Peripheral pulses are full. DTRs symmetrical in the upper and lower extremities. Gait and stance, muscle tone and muscle bulk are normal. LABS: T and Y positive for yeast. ASSESSMENT: 1. Routine health care maintenance exam. Pap obtained today. Patient will be notified of results when available. 2. History of glucose intolerance. Check a hemoglobin A1c and glucose. 3. Yeast vaginitis. Was given a prescription for fluconazole #2. Next well exam in one year's time, sooner as needed. PLAN: See assessment. SRR:[id number] C: 03/26/04 16:55 DOCUMENT: [id number] LLITE SPECIALIST documented in this encounter Plan of Treatment Not on filedocumented as of this encounter Visit Diagnoses Not on filedocumented in this encounter Care Teams Installation Drafter Relationship Specialty Start Date End Date Theresa Hardy MD PCP - General 05/22/10 03/15/21 [address] [place] [address] documented as of this encounter
--- OUTSIDE RECORDS SUMMARY | 2021-11-09 06:16 | XMS_ITS | Encounter Summary ---
:1970 Author Organization [facility] Address [address] [address] Care Team Providers Name Role Phone Theresa Hardy MD Primary Care Provider Encounter Details Date Type Department Care Team Description 09/24/2004 Office Visit [facility] [place] [address] [facility] [address] [place] [address] [place], [place] [phone] (Wo rk) Social History Tobacco Use Types [...] at Date Recorded Female 02/21/2021 8:36 PM PHOTOGRAPHIC TECHNICIAN documented as of this encounter Last Filed Vital Signs Vital Sign Reading Time Taken Comments Blood Pressure 104/74 09/24/2004 11:41 AM CDT Pulse 72 09/24/2004 11:41 AM CDT Temperature - - Respiratory Rate - - Oxygen Saturation - - Inhaled Oxygen Concentration - - Weight 74.8 kg (164 lb 15.9 oz) 09/24/2004 11:41 AM C: 74.8kg CDT Height - - Body Mass Index - - documented in this encounter Progress Notes Venkata Bojorquez MD - 09/24/2004 12:01 AM CDT Progress Notes signed by Venkata Bojorquez MD at 10/15/04 1500 Author: Venkata Bojorquez MD Service: (none) Author Type: Physician Filed: 06/08/10 0627 Note Time: 09/24/042021 Status: Signed Call Center Supervisor: Venkata Bojorquez MD (Physician) NAME: MARII JOSÉ MR: [id number] ACCT: [id number] VISIT: [id number] DICTATING CLINICIAN: VENKATA BOJORQUEZ MD JOB: [id number] CLINIC PROGRESS NOTE DATE OF VISIT: 09/24/2004 SUBJECTIVE: [age]ms[age]ratt[age]sq[age]-old female comes in today with complaints of abdominal pain. Patient was seen earlier last month for same complaint. She had a right upper quadrant ultrasound done which was normal. She continues to complain of abdominal pain. However, instead of the upper quadrant, she now complains of more in the mid abdomen at the level of her umbilicus. Pain is described as crampy, achy, sometimes sharp. Associated usually with diarrhea. Can also be associated with constipation. On occasion can be associated with nausea. Does not seem to be necessarily related to type of food she eats. No blood in her stool. On occasion it will be associated with nausea. No emesis. No weight loss. Appetite has been good. No fevers, chills. She is very concerned about this as her dad from lymphoma. Had adenopathy only in the abdomen. His only symptoms were abdominal pain. However, he had been having abdominal pain for several years before his lymphoma was actually diagnosed, but she is convinced that the pain she was experiencing was related to the lymphoma. This makes her very anxious and concerned that she has a cancer. There are multiple cancers in her family--brain cancer, kidney cancer, lymphoma. No cancers that are related. She came in at this time because of her father's recent and also because she thinks the abdominal pain has gotten worse. On occasion she will experience heartburn, but this is very infrequent, less than one time per week. MEDICATIONS: See the health profile in LastWord. ADR/ALLERGIES: SEE THE HEALTH PROFILE IN LASTWORD. PAST MEDICAL HISTORY: See the health profile in LastWord. SOCIAL HISTORY: with children. No tobacco, rare alcohol. OBJECTIVE: VS: BP: 104/74. P: 72. Wt: 165. GENERAL: Patient is a pleasant, healthy, mildly obese female in no acute distress. HEENT: Within normal limits. NECK: Supple. No LA. No TM. LUNGS: CTA. HEART: Regular with distinct S1 and S2. No murmurs or extra sounds. BACK: No spinal or CVA tenderness. ABDOMEN: Bowel sounds present, soft, nontender. No HSM, no masses. EXTREMITIES: No clubbing, cyanosis or edema. Peripheral pulses are full. ASSESSMENT: Abdominal pain, most probably irritable bowel syndrome. PLAN: I spent 30 minutes out of a 40-minute visit in counseling patient regarding nature of her abdominal pain, differential diagnosis, reasons I believe it is irritable bowel and not a cancer. We agreed on doing an upper GI with a small bowel follow through, starting patient on Levsin, also reviewed the use of cwme-zlf-oxcbwnj Imodium. She will be notified of results when available. I have asked her that, if the medication does not help her symptoms or if her symptoms seem to be worsening, reviewed concerning symptoms for which she should be reevaluated. Will see her back in approximately four weeks for a recheck. TT: [address]: 30 minutes. SRR:[id number] C: 09/25/04 22:41 DOCUMENT: [id number] documented in this encounter Plan of Treatment Not on filedocumented as of this encounter Visit Diagnoses Not on filedocumented in this encounter Care Teams Skills Auditor Relationship Specialty Start Date End Date Theresa Hardy MD PCP - General 05/22/10 03/15/21 [address] [place] [address] documented as of this encounter
--- OUTSIDE RECORDS SUMMARY | 2021-11-09 06:16 | XMS_ITS | Encounter Summary ---
:1970 [facility] Organization [facility] Address [address] [address] Care Team Providers Name Role Phone Theresa Hardy MD Primary Care Provider Reason for Visit Reason Comments Other Encounter Details Date Type Department Care Team Description 09/12/2004 Telephone [facility] [place] Other [address] [place] [address] Social History Tobacco Use Types [...] at Date Recorded Female 02/21/2021 8:36 PM SHOP BLACKSMITH documented as of this encounter Progress Notes Viji Hayes - 09/12/2004 8:54 AM CDT Phone Note filed by Viji Hayes RN at 06/04/101932 Author: Viji Hayes RN Service: (none) Author Type: Registered Nurse Filed: 06/04/101932 Note Time: 09/12/04853 Status: Signed Rehabilitation Therapy Aide: Viji Hayes, RN (Registered Nurse) Fifi was seen August 17 for some r-sided abdominal pain and possible IBS issues (no dication from visit). She had a RUQ US, and that was normal. Her symptoms persist. You told her to come back if symptoms persist. 1st available appt. is October 02. Call her at home:[phone]...detailed message is ok. If you need to talk call her cell if not home:[phone]. Created on 12Sep2004 8:54am by VIJI HAYES On 12Sep2004 12:25pm VENKATA VEGA wrote: carol call and schedule follow up appt Acknowledged by VENKATA VEGA on 12:25pm On 12Sep2004 1:51pm CAROL STEVENS wrote: Pt. called and scheduled for appt. 09/24. Acknowledged by CAROL STEVENS on 1:51pm BLACKSMITH documented in this encounter Plan of Treatment Not on filedocumented as of this encounter Visit Diagnoses Not on filedocumented in this encounter Care Teams [employer] Artistic Director Relationship Specialty Start Date End Date Theresa Hardy MD PCP - General 05/22/10 03/15/21 [address] [place] [address] documented as of this encounter
--- OUTSIDE RECORDS SUMMARY | 2021-11-09 06:16 | XMS_ITS | Encounter Summary ---
:1970 [facility] Address [address] [address] Care Team Providers Name Role Phone Theresa Hardy MD Primary Care Provider Encounter Details Date Type Department Care Team Description 01/24/2004 Nursing Visit Tina Summer Woo MD [address] [address] [place] [id number] [phone] Social History Tobacco Use Types Packs/Day Years [...] at Date Recorded Female 02/21/2021 8:36 PM PANTS PRESSER documented as of this encounter Plan of Treatment Not on filedocumented as of this encounter Visit Diagnoses Not on filedocumented in this encounter Care Teams Land Surveyor Manager Relationship Specialty Start Date End Date Theresa Hardy MD PCP - General 05/22/10 03/15/21 [address] [place] [address] documented as of this encounter
--- OUTSIDE RECORDS SUMMARY | 2021-11-09 06:16 | XMS_ITS | Encounter Summary ---
:1970 Author Organization [facility] Address [address] [address] Care Team Providers Name Role Phone Theresa Hardy MD Primary Care Provider Encounter Details Date Type Department Care Team Description 01/04/2005 Office Visit [facility] Donavan Nance MD [facility] [address] [facility] [address] [place] [id number] [place] [address] [phone] Social History Tobacco Use Types Packs/Day Years [...] at Date Recorded Female 02/21/2021 8:36 PM ADJUNCT ENGLISH INSTRUCTOR documented as of this encounter Last Filed Vital Signs Vital Sign [place] Time Taken Comments Blood Pressure 110/78 01/04/2005 11:52 AM ADJUNCT ENGLISH INSTRUCTOR Pulse 70 01/04/2005 11:52 AM ADJUNCT ENGLISH INSTRUCTOR Temperature - - Respiratory Rate - - Oxygen Saturation - - Inhaled Oxygen Concentration - - Weight 69.3 kg (152 lb 12.5 oz) 01/04/2005 11:52 AM C: 69.3kg ADJUNCT ENGLISH INSTRUCTOR Height - - Body Mass Index - - documented in this encounter Progress Notes Donavan Nance MD - 01/04/2005 12:01 AM CST Progress Notes signed by Donavan Nance MD at 01/13/05 1843 Author: Donavan Nance MD Service: (none) Author Type: Physician Filed: 06/08/10 0825 Note Time: 01/04/052021 Status: Signed Tunnel Heading Inspector: Donavan Nance MD (Physician) NAME: MARII JOSÉ MR: [id number] ACCT: [id number] VISIT: [id number] DICTATING CLINICIAN: DONAVAN NANCE MD JOB: [id number] CLINIC PROGRESS NOTE DATE OF VISIT: 01/04/2005 SUBJECTIVE: : 1970. This is a new patient to internal medicine. She is here to followup recent emergency room visit at [facility]. She was seen there 12/27/04. We tried to get records but was not able. Per patient she was there for 48 hours, history of diarrhea, too many times to count. Toward the end there was blood. She also complains of periumbilical pain that is crampy. The patient reports some nausea and vomiting. She denies fever or chills. She was sent home without medication. Two days later she was called, apparently she had c. diff colitis. She was given Flagyl 500 mg t.i.d. She has been taking this now for the last four days. The diarrhea has not let up. The patient denies any bloody stools. The abdominal pain has resolved. She is still slightly nauseated. No emesis. No fever, no chills. The patient reports she is able to eat some food and able to keep some fluid down. She feels slightly lightheaded when she stood up quickly. She denies shortness of breath or chest pain. Her migraine headache is not bothering her. No neural symptoms. No urinary symptoms. PAST MEDICAL HISTORY: Migraines for which she takes Topamax, Imitrex. She also takes control pills. ADR/ALLERGIES: NONE. OBJECTIVE: VS: BP: 110/78. P: 70. Wt: 152 lb. She is pleasant and cooperative and in no acute distress. NECK: Supple. No thyromegaly. LUNGS: Clear. CHEST: Nontender to palpation. HEART: Regular rhythm. ABDOMEN: Soft, bowel sounds positive. She is nondistended, nontender. No mass, no organomegaly, no hernia. NEURO: Entirely normal. CBC today within normal limits. We are awaiting electrolytes, BUN and creatinine. ASSESSMENT: C. diff colitis. PLAN: I discussed her case with illustrator set, Dr. Sharma. Since the diarrhea has not let up after four days of therapy of Flagyl, he recommend switching to vancomycin 125 mg q.i.d. for another two weeks. I did write her a prescription for this. He recommended no anti-diarrheal medications. I discussed my recommendations with this patient. She will check back with me early next week if she does not feel better. I recommend bland diet, I recommend avoid dairy products and raw vegetables until she feels better. SHN:[id number] C: 01/05/05 05:46 DOCUMENT: [id number] NCT ENGLISH INSTRUCTOR documented in this encounter Plan of Treatment Not on filedocumented as of this encounter Visit Diagnoses Not on filedocumented in this encounter Care Teams Construction Management Assistant Relationship Specialty Start Date End Date Theresa Hrady MD PCP - General 05/22/10 03/15/21 [address] [place] [address] documented as of this encounter
--- OUTSIDE RECORDS SUMMARY | 2021-11-09 06:16 | XMS_ITS | Encounter Summary ---
:1970 Author Organization [facility] Address [address] [address] Care Team Providers Name Role Phone Theresa Hardy MD Primary Care Provider Encounter Details Date Type Department Care Team Description 03/31/2006 PN Conversion Only SORIN CONVERSIO N Theresa Hardy, [address] [facility] [place] [address] [facility] [place] [address] [place] [address] (Wo rk) Social History Tobacco Use Types [...] at Date Recorded Female 02/21/2021 8:36 PM ROCK WOOL APPLICATOR documented as of this encounter Plan of Treatment Not on filedocumented as of this encounter Procedures Procedure Name Priority Date/Time Associated Comments Diagnosis GLUCOSE Routine 03/31/2006 9:50 AM Results f or this ROCK WOOL APPLICATOR procedure are i n the results section. LIPID PANEL AND Routine 03/31/2006 9:50 AM Result s for this DIRECT LDL(IF ROCK WOOL APPLICATOR procedure are in NEEDED) the results section. HGB A1C Routine 03/31/2006 9:50 AM Results f or this ROCK WOOL APPLICATOR procedure are i n the results section. ANATOMICAL PATH Routine 03/31/2006 7:31 AM Result s for this LIQUID BASED ROCK WOOL APPLICATOR procedure are i n the results section. documented in this encounter Results Glucose (03/31/2006 9:50 AM ROCK WOOL APPLICATOR) P athologist Signature Length Of Fast 12.0 Hours HP CONVERSION Lab Glucose 90 60 - 100 HP CONVERSION mg/dL Specimen (Source) Anatomical Collection Method Collection Time Re ceived Time Location / / Volume Laterality 03/31/2006 9:50 AM ROCK WOOL APPLICATOR Theresa Hardy MD LAB_1 Performing Organization Address City/State/ZIP Code Phon e Number HP CONVERSION Lipid Panel and Direct LDL(If Needed) (03/31/2006 9:50 AM ROCK WOOL APPLICATOR) [facility] gist Method Time Signature Length Of Fast 12.0 Hours HP CONVERSION Cholesterol/HDL 3.1 No normal HP CONVERSION Ratio Screen range Cholesterol 174 <200 mg/dL HP CONVERSION HDL Cholesterol 56 40 - 60 HP CONVERSION mg/dL Triglycerides 111 0 - 149 HP CONVERSION mg/dL LDL Calculated 96 0 - 130 HP CONVERSION mg/dL Comment: Specimen (Source) Anatomical Collection Method Collection Time Re ceived Time Location / / Volume Laterality 03/31/2006 9:50 AM ROCK WOOL APPLICATOR Theresa Hardy MD LAB_1 Performing Organization Address City/[facility]/ZIP Code Phon e Number HP CONVERSION Hgb A1c (03/31/2006 9:50 AM ROCK WOOL APPLICATOR) athologist Signature HGB A1C 5.4 <6.0 % HP CONVERSION Specimen (Source) Anatomical Collection Method Collection Time Re ceived Time Location / / Volume Laterality 03/31/2006 9:50 AM ROCK WOOL APPLICATOR Theresa Hardy MD LAB_1 Performing Organization Address City/[facility] Code Phon e Number HP CONVERSION Pap Smear (03/31/2006 7:31 AM ROCK WOOL APPLICATOR) [facility] gist Method Time Signature PAP Smear SEE TEXT No normal HP CONVERSION Liquid Based range Comment: Patient: ESTEFANÍAMARII ? CERVICAL CYTOLOGY REPORT Pathology # ??[id number] ?Date Obtained: ? Date Received: CYTOLOGIC IMPRESSION: Negative for intraepithelial lesion or m alignancy. Verified 04/02/06 by: ??MB ? (electronic signature) ? AAKASH TIONAL DATA LMP: CLINICAL HIST LIQUID BASED PAP CERVICAL SPECIMEN ADEQUACY: ?? Satisfactory. ENDOCERVICAL CELLS: ??Present. Specimen (Source) Anatomical Collection Method Collection Time Re ceived Time Location / / Volume Laterality 03/31/2006 7:31 AM ROCK WOOL APPLICATOR Theresa Hardy MD LAB_1 Performing Organization Address City/State/ZIP Code Phon e Number HP CONVERSION documented in this encounter Visit Diagnoses Not on filedocumented in this encounter Care Teams Occupational Therapy Instructor Relationship Specialty Start Date End Date Theresa Hardy MD PCP - General 05/22/10 03/15/21 [address] [place] [address] documented as of this encounter
--- OUTSIDE RECORDS SUMMARY | 2021-11-09 06:16 | XMS_ITS | Encounter Summary ---
:1970 Author Organization [facility] Address [address] [address] Care Team Providers Name Role Phone Theresa Hardy MD Primary Care Provider Reason for Visit Reason Comments Other Encounter Details Date Type Department Care Team Description 04/23/2006 Telephone [facility], Message Other [address] [place] [address] Social History Tobacco Use Types [...] at Date Recorded Female 02/21/2021 8:36 PM CREDIT NEGOTIATOR documented as of this encounter Progress Notes Center, Message - 04/23/2006 10:52 AM CST Phone Note filed by Voxbone at 06/05/101708 Author: [facility] Service: (none) Author Type: (none) Filed: 06/05/101708 Note Time: 04/23/06 1052 Status: Signed Service Dispatcher: [facility] Prescription Refill Please provide enough refills to last until patient's next visit. Comment:- Pharmacy Seq #:-[phone] Pharmacy Name[facility] Street or City:-[place] Clinician Name:-Antony Drug Name/Strength:-Cryselle-28 tabs. Sig: Dose/Route/Freq:-Take 1 tab daily. Quantity & Last Fill:-28 03/28/06 Created on 23Apr2006 10:52am by PETTY ARTEAGA J On 23Apr2006 3:10pm LINDSEY HELM wrote: Renewed medication per medication refill protocol. IT NEGOTIATOR documented in this encounter Plan of Treatment Not on filedocumented as of this encounter Visit Diagnoses Not on filedocumented in this encounter Care Teams Manager Engine Relationship Specialty Start Date End Date Theresa Hardy MD PCP - General 05/22/10 03/15/21 [address] [place] [address] documented as of this encounter
--- OUTSIDE RECORDS SUMMARY | 2021-11-09 06:16 | XMS_ITS | Encounter Summary ---
:1970 [facility] Address [address] [address] Care Team Providers Name Role Phone Tehresa Hardy MD Primary Care Provider Encounter Details Date Type Department Care Team Description 03/10/2006 Office Visit [facility] Erik Winters [address] [place] [address] Social History Tobacco Use Types [...] at Date Recorded Female 02/21/2021 8:36 PM CONTRACT TECHNICIAN documented as of this encounter Plan of Treatment Not on filedocumented as of this encounter Visit Diagnoses Not on filedocumented in this encounter Care Teams Automotive Worker Relationship Specialty Start Date End Date Theresa Hardy MD PCP - General 05/22/10 03/15/21 [address] [place] [id number] documented as of this encounter
--- OUTSIDE RECORDS SUMMARY | 2021-11-09 06:16 | XMS_ITS | Encounter Summary ---
:1970 Author Organization [facility] Address [address] [address] Care Team Providers Name Role Phone Theresa Hardy MD Primary Care Provider Reason for Visit Reason Comments Other Encounter Details Date Type Department Care Team Description 04/18/2006 Telephone [facility] Asa Juan, [place] Other [address] [place] [address] [place] [address] [phone] (Wo rk) Social History Tobacco Use Types [...] at Date Recorded Female 02/21/2021 8:36 PM DIGITAL MEASUREMENT ADVISOR documented as of this encounter Progress Notes Center, Message - 04/18/2006 11:59 AM CST Phone Note filed by [place] at 06/05/10 6584 Author: Message Center Service: (none) Author Type: (none) Filed: 06/05/10 6147 Note Time: 04/18/06 1159 Status: Signed Piling Cutter: Message [place] Prescription Refill Please provide enough refills to last until patient's next visit. Comment:- Pharmacy Seq #:-[phone] Pharmacy Name[facility] Street or City:-[place] Clinician Name:-Domitila Hardy Drug Name/Strength:-Topamax 100MG tab Sig: Dose/Route/Freq:-take one tab twice daily Quantity & Last Fill:-60 03/19/06 Created on 18Apr2006 11:59am by ISRAEL VAZQUEZ On 18Apr2006 12:58pm ASA DOYLE wrote: Rx faxed. Acknowledged by ASA DOYLE on 12:58pm TAL MEASUREMENT ADVISOR documented in this encounter Plan of Treatment Not on filedocumented as of this encounter Visit Diagnoses Not on filedocumented in this encounter Care Teams Shirt Sorter Relationship Specialty Start Date End Date Theresa Hardy MD PCP - General 05/22/10 03/15/[address] [place] [place] [place] [address] documented as of this encounter
--- OUTSIDE RECORDS SUMMARY | 2021-11-09 06:16 | XMS_ITS | Encounter Summary ---
:1970 Author Organization [facility] Address [address] [address] Care Team Providers Name Role Phone Theresa Hardy MD Primary Care Provider Encounter Details Date Type Department Care Team Description 03/18/2005 PN Conversion Only SORIN CONVERSIO N Theresa Hardy, [address] [facility] [place] [address] [facility] [place] [address] (Wo rk) Social History Tobacco [...] at Date Recorded Female 02/21/2021 8:36 PM SERVICE SUPERVISOR documented as of this encounter Plan of Treatment Not on filedocumented as of this encounter Visit Diagnoses Not on filedocumented in this encounter Care Teams Manager Rehab Relationship Specialty Start Date End Date Theresa Hardy MD PCP - General 05/22/10 03/15/[address] [address] documented as of this encounter
--- OUTSIDE RECORDS SUMMARY | 2021-11-09 06:16 | XMS_ITS | Encounter Summary ---
:1970 Author Organization [facility] Address [address], [place] [address] Care Team Providers Name Role Phone Mariaelena Hardy MD Primary Care Provider Reason for Visit Reason Comments Other Encounter Details Date Type Department Care Team Description 03/03/2006 Telephone [facility], Message Other [address] [place] [address] Social History Tobacco Use Types [...] at Date Recorded Female 02/21/2021 8:36 PM EXTENSION EDGER documented as of this encounter Progress Notes Viji Hayes - 03/03/2006 8:58 AM CST Phone Note filed by Viji Hayes RN at 06/05/10 8456 Author: Viji Hayse RN Service: (none) Author Type: Registered Nurse Filed: 06/05/101 Note Time: 03/03/0658 Status: Signed License Registration Examiner: Viji Hayes, RN (Registered Nurse) Care Without Wait Appt. Request: Primary Director Clinical Data:Dr. Hardy Caller name/relationship:Fifi Appt. reason/specific request:She has had a JEFF since 02/26. She says that i it feels a little different thatn her migraines. Sometime it will go away, but not for long. She says the pain level ranges from 0-9/10. This am it is 10. She is on Topamax to prevent migraines and hasn't had one for about 1 year.She is asking if you can see her? (you hve no openings other than the time held at the end of the day) Phone # pt./caller over next hr.:[phone] OK to leave detailed messsage on voicemail? Use e-code (/pncwowr) to respond to this request. Created on 03Mar2006 8:58am by VIJI HAYES R On 03Mar2006 9:26am MARIAELENA HARDY wrote: Ok to schedule her today if openings.O/w Recommend to go to if pain is getting worse.OK to use CWOW for tomorrow hor 30 mins.Thanks Acknowledged by MARIAELENA HARDY on 9:26am On 03Mar2006 9:50am JUSTINA DURON wrote: Scheduled tomorrow CWOW 1:00 Acknowledged by JUSTINA DURON on 9:50am NSION EDGER documented in this encounter Plan of Treatment Not on filedocumented as of this encounter Visit Diagnoses Not on filedocumented in this encounter Care Teams Sponge Packer Relationship Specialty Start Date End Date Mariaelena Hardy MD PCP - General 05/22/10 03/15/21 [address] [place] [address] documented as of this encounter
--- OUTSIDE RECORDS SUMMARY | 2021-11-09 06:16 | XMS_ITS | Encounter Summary ---
:1970 [facility] Address [address] [address] Care Team Providers Name Role Phone Theresa Hardy MD Primary Care Provider Encounter Details Date Type Department Care Team Description 03/18/2005 PN Conversion Only [facility] N Theresa Hardy, [address] [facility] [place] [address] [facility] [place] [address] [place] [address] [...] at Date Recorded Female 02/21/2021 8:36 PM CRYSTALLOGRAPHY TEACHER documented as of this encounter Plan of Treatment Not on filedocumented as of this encounter Procedures Procedure Name Priority Date/Time Associated Comments Diagnosis ANATOMICAL PATH Routine 03/18/2005 10:52 AM Resul ts for this LIQUID BASED CRYSTALLOGRAPHY TEACHER procedure are i n the results section. GLUCOSE Routine 03/18/2005 9:40 AM Results f or this CRYSTALLOGRAPHY TEACHER procedure are i n the results section. CHOLESTEROL, TOTAL Routine 03/18/2005 9:40 AM Res ults for this AND HDL CRYSTALLOGRAPHY TEACHER procedure are i n the results section. documented in this encounter Results Pap Smear (03/18/2005 10:52 AM CRYSTALLOGRAPHY TEACHER) Patholo gist Method Time Signature PAP Smear SEE TEXT No normal HP CONVERSION Liquid Based range Comment: Patient: MARII JOSÉ ? CERVICAL CYTOLOGY REPORT Pathology # ??[id number] ?Date Obtained: ? Date Received: CYTOLOGIC IMPRESSION: Negative for intraepithelial lesion or m alignancy. ? AAKASH TIONAL DATA LMP: CLINICAL HIST ?V76.2 LIQUID BASED PAP CERVICAL SPECIMEN ADEQUACY: ?? Satisfactory. ENDOCERVICAL CELLS: ??Present. Verified 03/21/05 by: ??S_V ?(electronic signature) Specimen (Source) Anatomical Collection Method Collection Time Re ceived Time Location / / Volume Laterality 03/18/2005 10:52 AM CRYSTALLOGRAPHY TEACHER Theresa Hardy MD LAB_1 Performing Organization Address City/State/ZIP Code Phon e Number HP CONVERSION Cholesterol, Total and HDL (03/18/2005 9:40 AM CRYSTALLOGRAPHY TEACHER) Analysis Performed At Patho logist Time Signature Cholesterol/HDL 3.4 No normal HP CONVERSION Ratio Screen range Cholesterol 175 <200 mg/dL HP CONVERSION HDL Cholesterol 51 40 - 60 HP CONVERSION mg/dL Specimen (Source) Anatomical Collection Method Collection Time Re ceived Time Location / / Volume Laterality 03/18/2005 9:40 AM CRYSTALLOGRAPHY TEACHER Theresa Hardy MD LAB_1 Performing Organization Address City/State/ZIP Code Phon e Number HP CONVERSION Glucose (03/18/2005 9:40 AM CRYSTALLOGRAPHY TEACHER) P athologist Signature Lab Glucose 93 60 - 100 HP CONVERSION mg/dL Specimen (Source) Anatomical Collection Method Collection Time Re ceived Time Location / / Volume Laterality 03/18/2005 9:40 AM CRYSTALLOGRAPHY TEACHER Theresa Hardy MD LAB_1 Performing Organization Address City/State/ZIP Code Phon e Number HP CONVERSION documented in this encounter Visit Diagnoses Not on filedocumented in this encounter Care Teams Bottom Worker Relationship Specialty Start Date End Date Theresa Hardy MD PCP - General 05/22/10 03/15/21 [address] [place] [address] documented as of this encounter
--- OUTSIDE RECORDS SUMMARY | 2021-11-09 06:16 | XMS_ITS | Encounter Summary ---
:1970 Author Organization [facility] Address [address], [place] [address] Care Team Providers Name Role Phone Mariaelena Hardy MD Primary Care Provider Reason for Visit Reason Comments Other Encounter Details Date Type Department Care Team Description 08/12/2005 Telephone [facility] Mariaelena Juan MD Other [address] [place] [address] [place] [address] (Wo rk) Social History Tobacco Use Types [...] at Date Recorded Female 02/21/2021 8:36 PM CLINICAL APPLICATION SPECIALIST documented as of this encounter [facility], Message - 08/12/2005 2:43 PM CDT Phone Note filed by [facility] at 06/05/10 0542 Author: Message Center Service: (none) Author Type: (none) Filed: 06/05/10 0542 Note Time: 08/12/05 1443 Status: Signed Poiser: Nate Cubero PRESCRIPTION REFILL Please provide enough refills to last until patient's next visit. Comment:- Pharmacy Seq #:-[phone] Pharmacy Name:-[facility] Street or City:-[place] Clinician Name:Christal Hardy Drug Name/Strength:-Topamax 100MG tab Sig:-take one tab twice daily Quantity:-60 Last Fill:-07/03/05 Created on 12Aug2005 2:43pm by ISRAEL VAZQUEZ On 12Aug2005 2:54pm MARIAELENA HARDY wrote: faxed. Acknowledged by MARIAELENA HARDY on 2:54pm ICAL APPLICATION SPECIALIST documented in this encounter Plan of Treatment Not on filedocumented as of this encounter Visit Diagnoses Not on filedocumented in this encounter Care Teams Newspaper Reporter Relationship Specialty Start Date End Date Mariaelena Hardy MD PCP - General 05/22/10 03/15/21 [address] [address] [place] [address] documented as of this encounter
--- OUTSIDE RECORDS SUMMARY | 2021-11-09 06:16 | XMS_ITS | Encounter Summary ---
:1970 Author Organization [facility] Address [address], [place] [address] Care Team Providers Name Role Phone Mariaelena Hardy MD Primary Care Provider Reason for Visit Reason Comments Other Encounter Details Date Type Department Care Team Description 12/27/2004 Telephone [facility] Mariaelena Juan MD Other [address] [place] [address] [place], [place] [id number] (Wo rk) Social History Tobacco Use Types [...] at Date Recorded Female 02/21/2021 8:36 PM INVENTORY AND PRICING ASSOCIATE documented as of this encounter Progress Notes Guera Tolliver - 12/27/2004 3:59 PM CST Phone Note filed by Guera Tolliver RN at 06/04/10 3090 Author: Guera C Doehlert, RN Service: (none) Author Type: (none) Filed: 06/04/10 2211 Note Time: 12/27/041558 Status: Signed Aircraft Engineer: Jitendra Edwards Pt. calling with sxs of abdominal cramping and diarrhea for past 2 days. Pt. was a pt. of Dr. Rothman but has PX scheduled with Dr. Hardy. Pt. thinks this may have been food poisoning but hasn't had vomiting. Discussed hydration and bland diet, Immodium. Pt. will come to urgent care if this continues more than 72 hours. Created on 27Dec2004 3:59pm by GUERA TOLLIVER Acknowledged by MARIAELENA HARDY on 5:23pm NTORY AND PRICING ASSOCIATE documented in this encounter Plan of Treatment Not on filedocumented as of this encounter Visit Diagnoses Not on filedocumented in this encounter Care Teams Tool Repairer Relationship Specialty Start Date End Date Mariaelena Hardy MD PCP - General 05/22/10 03/15/21 [address] [place] [address] documented as of this encounter
--- OUTSIDE RECORDS SUMMARY | 2021-11-09 06:16 | XMS_ITS | Encounter Summary ---
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 documented as of this encounter Last Filed Vital Signs Vital Sign Reading Time Taken Comments Blood Pressure 106/80 03/18/2005 9:04 AM SOFT TOP INSTALLER Pulse 72 03/18/2005 9:04 AM SOFT TOP INSTALLER Temperature - - Respiratory Rate - - Oxygen Saturation - - Inhaled Oxygen Concentration - - Weight 66.2 kg (145 lb 15.8 oz) 03/18/2005 9:04 AM C: 6 6.2kg SOFT TOP INSTALLER Height 149.9 cm (4' 11) 03/18/2005 9:04 AM C: 149.9cm SOFT TOP INSTALLER Body Mass Index 29.49 03/18/2005 9:04 AM SOFT TOP INSTALLER documented in this encounter Progress Notes Mariaelena Hardy MD - 03/18/2005 12:01 AM CST H&P signed by Mariaelena Hardy MD at 04/07/05 1637 Author: Mariaelena Hardy MD Service: (none) Author Type: Physician Filed: 06/08/10 0953 Note Time: 03/18/05 0001 Status: Signed Case Mgr: Mariaelena Hardy MD (Physician) NAME: MARII JOSÉ MR: [id number] ACCT: [id number] VISIT: [id number] DICTATING CLINICIAN: MARIAELENA HARDY MD JOB: [id number] CLINIC PHYSICAL DATE OF VISIT: 03/18/2005 SUBJECTIVE: : 1970. Chief Complaint: Complete physical. HISTORY OF PRESENT ILLNESS: Marii is a 34-year-old lady, who today came in for a complete physical. According to the patient, she is doing fine. She does not have any particular concerns to discuss. She wants a medication refill today. REVIEW OF SYSTEMS: Otherwise, patient denies any chest pain, no breathing difficulty, no headache, no blurry vision. Complete review of systems is otherwise, negative. PAST MEDICAL HISTORY: Significant for migraine, which has been stable. SURGICAL HISTORY: None. HOSPITALIZATIONS: None. [facility] The patient currently takes Topamax, Lo-Ovral, Imitrex as needed, and clobetasol cream 0.05% as needed for eczema. IMMUNIZATIONS: Patient did receive her last tetanus booster in 1995. GYNECOLOGICAL HISTORY: Patient had a history of irregular periods in the past, so she was put on control pills, and she has been taking it for the last 14 years. While she is on control pills, her periods are regular. She had a history of abnormal Pap smear in the past, but the repeat ones were normal. No history of any sexually transmitted disease. FAMILY HISTORY: Her father of lymphoma in his 50s. Paternal grandmother had history of breast cancer. Maternal grandmother has diabetes. SOCIAL HISTORY: Patient is . She has 3 kids, one 9-year-old, and 6-year-old twins. Otherwise, patient stays home. She denies any smoking, no alcohol, no illicit drug use. HEALTH MAINTENANCE: Patient had her last Pap smear in 02/2004, and it was normal. ADR/ALLERGIES: REVIEWED FROM [facility]. OBJECTIVE: VS: BP: 106/80. P: 72. Wt: 146 lb. GENERAL: Patient is comfortable, no acute distress. HEENT: Head: Normocephalic, atraumatic. Tympanic membranes are clear. Pharynx is clear. There is no redness, no exudate. NECK: Supple. CARDIOVASCULAR: S1, and S2 regular. LUNGS: Clear to auscultation bilaterally. ABDOMEN: Soft, nondistended, nontender, positive bowel sounds. EXTREMITIES: No edema. NEURO: No focal finding. Cranial nerves are intact. Strength 5/5, upper and lower extremities. Sensations are intact. Reflexes are 2+ positive bilaterally. BREASTS: No masses appreciated. Overlying skin is normal. No nipple discharge bilaterally. SKIN: No suspicious lesion identified. PELVIC: Uterus is normal size. No adnexal tenderness. No cervical motion tenderness present. Vaginal mucosa is normal, moist and pink. Bimanual exam normal. RECTAL: External sphincter is intact and no masses appreciated. ASSESSMENT: 1. Health care maintenance. Monthly self breast exam has been recommended. Patient has been recommended to take adequate calcium intake, and weightbearing exercises for the prevention of osteoporosis. I did the Pap smear on the patient. I am also going to check for total cholesterol, HDL, and fasting blood sugar, as a screening test. Patient also did receive tetanus booster shot today. 2. Medication refills for Topamax, lo-Ovral, Imitrex, have been given to the patient. Instead of clobetasol cream, I gave the patient prescription of prednisone 2.5% cream to use as needed only. This the patient agreed. Patient has been told that if the labs are abnormal we will give her a call, otherwise, she should receive the labs in the mail. PLAN: See assessment. SS:[id number] C: 03/19/05 14:40 DOCUMENT: [id number] TOP INSTALLER documented in this encounter Plan of Treatment Not on filedocumented as of this encounter Visit Diagnoses Not on filedocumented in this encounter Care Teams Manager Of Software Relationship Specialty Start Date End Date Mariaelena Hardy MD PCP - General 05/22/10 03/15/21 [address] [place] [address] documented as of this encounter
--- OUTSIDE RECORDS SUMMARY | 2021-11-09 06:17 | XMS_ITS | Encounter Summary ---
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 GLUCOSE Routine 01/05/2003 10:22 AM Results for this GEAR CHANGER procedure are i n the results section. LIPID PANEL AND Routine 01/05/2003 10:22 AM Resul ts for this DIRECT LDL(IF GEAR CHANGER procedure are in NEEDED) the results section. documented in this encounter Results Pap Smear (01/05/2003 12:31 PM GEAR CHANGER) [facility] Method Time Signature PAP Smear SEE TEXT No normal HP CONVERSION Liquid Based range Comment: Patient: MARII JOSÉ ? CERVICAL CYTOLOGY REPORT Pathology # ??[id number] ?Date Obtained: ? Date Received: CYTOLOGIC IMPRESSION: Negative for intraepithelial lesion or m alignancy. ? AAKASH TIONAL DATA LMP: ?12-22-02 CLINICAL HIST ? PREV NORM 11-18 ELSE WHERE LIQUID BASED PAP CERVICAL SPECIMEN ADEQUACY: ?? Satisfactory. ENDOCERVICAL CELLS: ??Present. Verified 01/14/03 by: ??TSC ?(electronic signature) Specimen (Source) Anatomical Collection Method Collection Time Re ceived Time Location / / Volume Laterality 01/05/2003 12:31 PM GEAR CHANGER Laureen Bojorquez MD LAB_1 Performing Organization Address City/State/ZIP Code Phon e Number HP CONVERSION Lipid Panel and Direct LDL(If Needed) (01/05/2003 10:22 AM GEAR CHANGER) [facility] Method Time Signature Length Of Fast 9.5 Hours HP CONVERSION Cholesterol/HDL 3.7 No normal HP CONVERSION Ratio Screen range Cholesterol 184 125 - 199 HP CONVERSION mg/dL HDL Cholesterol 50 40 - 60 HP CONVERSION mg/dL Triglycerides 94 0 - 199 HP CONVERSION mg/dL LDL Calculated 115 66 - 129 HP CONVERSION mg/dL Comment: Due to abbreviated fast (<10 hours), tri glyceride may be falsely elevated causing factitiously de creased LDL. Specimen (Source) Anatomical Collection Method Collection Time Re ceived Time Location / / Volume Laterality 01/05/2003 10:22 AM GEAR CHANGER Laureen Bojorquez MD LAB_1 Performing Organization Address City/State/ZIP Code Phon e Number HP CONVERSION (ABNORMAL) Glucose (01/05/2003 10:22 AM GEAR CHANGER) P athologist Signature Length Of Fast 9.5 Hours HP CONVERSION Lab Glucose 111 (H) 60 - 109 HP CONVERSION mg/dL Specimen (Source) Anatomical Collection Method Collection Time Re ceived Time Location / / Volume Laterality 01/05/2003 10:22 AM GEAR CHANGER Laureen Bojorquez MD LAB_1 Performing Organization Address City/[facility] Code Phon e Number HP CONVERSION documented in this encounter Visit Diagnoses Not on filedocumented in this encounter Care Teams Hand Splitter Relationship Specialty Start Date End Date Theresa Hardy MD PCP - General 05/22/10 03/15/21 [address] [place] [address] documented as of this encounter
--- OUTSIDE RECORDS SUMMARY | 2021-11-09 06:17 | XMS_ITS | Encounter Summary ---
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 She has tried Topamax in the past, this worked somewhat but she didn't take it long enough to find out if it would have worked better with a higher dosage. She's wondering if trying this again may be a possibility. [facility] [phone]. Please call pt and let her know if something else is called in- [phone]. Created on 07Nov2003 11:58am by STORMY VAZQUEZ On 07Nov2003 2:02pm VENKATA VEGA wrote: please have pt make appt if she wants to change meds o/w refills above will be called in propanolol 40 mg #60 refills prn yr, amitrip.10mg 2 tabs q hs #60 refills prn yr Acknowledged by VENKATA VEGA on 2:02pm On 07Nov2003 2:11pm CAROL STEVENS wrote: Pt. called and given above message. She will call and make an appt. to discuss changing meds. Acknowledged by CAROL STEVENS on 2:11pm documented in this encounter Plan of Treatment Not on filedocumented as of this encounter Visit Diagnoses Not on filedocumented in this encounter Care Teams Termite Renewal Inspector Relationship Specialty Start Date End Date Theresa Hardy MD PCP - General 05/22/10 03/15/21 [address] [place] [address] documented as of this encounter
--- OUTSIDE RECORDS SUMMARY | 2021-11-09 06:17 | XMS_ITS | Encounter Summary ---
:1970 Author Organization [facility] Address [address], [place] [address] Care Team Providers Name Role Phone Theresa Hardy MD Primary Care Provider Encounter Details Date Type Department Care Team Description 11/09/2003 Office Visit [facility] [place] [address] [facility] [address] [place] [address] [place], [place] [id number] (Wo rk) Social History Tobacco Use Types [...] at Date Recorded Female 02/21/2021 8:36 PM CLINIC LICENSED PRACTICAL NURSE documented as of this encounter Progress Notes Venkata Bojorquez MD - 11/09/2003 12:01 AM CDT Progress Notes signed by Venkata Bojorquez MD at 01/07/041947 Author: Venkata Bojorquez MD Service: (none) Author Type: Physician Filed: 06/08/10 0035 Note Time: 11/09/03 0001 Status: Signed Sole Rounder: Venkata Bojorquez MD (Physician) NAME: MARII JOSÉ MR: [id number] ACCT: [id number] VISIT: [id number] DICTATING CLINICIAN: VENKATA BOJORQUEZ MD JOB: [id number] CLINIC PROGRESS NOTE DATE OF VISIT: 11/09/2003 SUBJECTIVE: : [birth year]. Marii is a 33-year-old female who comes in today for a follow up of migraines. The patient is currently on prophylaxis using both amitriptyline at bedtime and propranolol twice a day. She reports that recently her headaches have increased in frequency. She has had three in the last two weeks. She has been using Imitrex and which resolve her headaches, however, she is looking to decrease the frequency. 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 Recently moved. MEDICATIONS: Lesterol, Imitrex, propanolol, amitriptyline. ADR/ALLERGIES: NO KNOWN DRUG ALLERGIES. SOCIAL HISTORY: Nonsmoker. FAMILY HISTORY: Does not know much about her father's side. He at a young age from lymphoma. Mom is alive and well. Two brothers and one sister alive and well. Paternal aunt who has migraines. OBJECTIVE: VS: BP: 108/76. P: 72. Wt: 179. In general, the patient is pleasant, healthy, well-developed, well-nourished female in no distress. HEENT: Head normocephalic, atraumatic. PUPILS: Equal, round and reactive. Conjunctivae clear. Sclerae nonicteric. Funduscopic exam was within normal limits. NECK: Supple, no lymphadenopathy, no thyromegaly. LUNGS: Clear to auscultation. HEART: Regular with distinct S1, S2, no murmurs or extra sounds. NEUROLOGIC: Cranial nerves II through XII intact. Finger to nose, tandem walking, and Romberg are all negative. ASSESSMENT: Migraine headaches increasing in frequency. The patient does not have any changes in medications. Only some increased stress in her life with a recent move. Will have patient continue amitriptyline 20 mg at bedtime. Propranolol 40 mg twice a day and start Topamax 25 mg once daily. After a week, she can increase it to 50, and after another week she can increase it to 75. We will see what happens to her migraine headaches. She had tried Topamax in the past. Was at 250 mg daily and did not like the way it made her feel. When starting to Topamax, she discontinue the amitriptyline and propranolol. Will have her continue these as well as adding the Topamax. We will see what happens. She should follow up with me in approximately four weeks, sooner if she has side effects to the medications or if her headaches should change. PLAN: See assessment. SRR:[id number] C: 11/15/03 17:34 DOCUMENT: [id number] IC LICENSED PRACTICAL NURSE documented in this encounter Plan of Treatment Not on filedocumented as of this encounter Visit Diagnoses Not on filedocumented in this encounter Care Teams Veterinarian Epidemiologist Relationship Specialty Start Date End Date Theresa Hardy MD PCP - General 05/22/10 03/15/21 [address] [place] [address] documented as of this encounter
--- OUTSIDE RECORDS SUMMARY | 2021-11-09 06:17 | XMS_ITS | Encounter Summary ---
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
--- OUTSIDE RECORDS SUMMARY | 2021-11-09 06:17 | XMS_ITS | Encounter Summary ---
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 documented as of this encounter Progress Notes Venkata Bojorquez MD - 06/13/2003 12:01 AM CDT Progress Notes signed by Venkata Bojorquez MD at 09/02/03 5410 Author: Venkata Bojorquez MD Service: (none) Author Type: Physician Filed: 06/07/10 220 Note Time: 06/13/03 0001 Status: Signed Lathe Operator: Venkata Bojorquez MD (Physician) NAME: MARII JOSÉ MR: [id number] ACCT: [id number] VISIT: [id number] DICTATING CLINICIAN: VENKATA BOJORQUEZ MD JOB: [id number] CLINIC PROGRESS NOTE DATE OF VISIT: 06/13/2003 SUBJECTIVE: Marii is a 33-year-old female who was seen approximately 10 days earlier for removal of a sebaceous cyst under her right breast. She comes in today for suture removal. She has not had any redness, pain, swelling in the area of the sutures. No fevers, chills. Is ready to have the sutures removed. MEDICATIONS: Please see updated profile. ADR/ALLERGIES: PLEASE SEE UPDATED PROFILE. PAST MEDICAL HISTORY: Migraines, amenorrhea on OCPs, and eczema. OBJECTIVE: VS: BP: 100/72. P: 76. Wt: 171. GENERAL: Patient is pleasant, healthy, well-developed, well-nourished female in no distress. Chest wall inferior to the right breast, incision has healed well. There is no redness, swelling in the area. No drainage from the wound. ASSESSMENT: Suture removal, cyst excision. PLAN: Sutures were removed. Steri-Strips applied. Patient was instructed on routine wound care. Follow up p.r.n. [id number] C: 07/26/03 10:10 DOCUMENT: [id number] Venkata Bojorquez MD - 05/30/2003 12:01 AM CDT Progress Notes signed by Venkata Bojorquez MD at 07/02/03 2128 Author: Venkata Bojorquez MD Service: (none) Author Type: Physician Filed: 06/07/10 1950 Note Time: 05/30/03 0001 Status: Signed Lathe Operator: Venkata Bojorquez MD (Physician) NAME: MARII JOSÉ MR: [id number] ACCT: [id number] VISIT: [id number] DICTATING CLINICIAN: VENKATA BOJORQUEZ MD JOB: [id number] CLINIC PROGRESS NOTE DATE OF VISIT: 05/30/2003 ASSESSMENT: Sebaceous cyst. PLAN: Removal. The patient gave consent for removal of a sebaceous cyst, but reviewed possible outcomes including bleeding and infection, scarring and return of the cyst. The area was prepped and draped in a sterile fashion, 1% lidocaine with epinephrine was used for local anesthesia. Elliptical incision was made with removal of the sebaceous cyst. Hemostasis was obtained. Incision was closed with 4 interrupted sutures. The patient tolerated the procedure well. She will follow up in 10 days for suture removal. Instructed on wound care. Reviewed possible signs of infection and reasons to follow up sooner. SUBJECTIVE: Marii is a 33-year-old female who comes in for a sebaceous cyst removal. She has had this cyst for several months. Recently was infected and treated with oral antibiotics and now comes in to have it removed. MEDICATIONS: Amitriptyline 20 mg q.h.s., propanolol 40 mg b.i.d., Imitrex 50 mg p.r.n., Lo-Orgestrel 28-day and clobetasol propionate night cream 0.05%. ADR/ALLERGIES: NO KNOWN DRUG ALLERGIES. PAST MEDICAL HISTORY: Migraine headaches, amenorrhea and eczema. SOCIAL HISTORY: The patient is a nonsmoker. REVIEW OF SYSTEMS: Denies any problems with local anesthesia or iodine allergies. OBJECTIVE: VS: BP: 84/68. P: 64. Wt: 171. The patient is a pleasant, healthy, well-developed, well-nourished female in no distress. Right chest wall inferior to the right breast mid clavicular line there is a palpable mass approximately 0.7-cm in size, mobile. Some erythematous skin discoloration from recent infection. No active infection or cellulitis. [id number] C: 05/31/03 15:35 DOCUMENT: [id number] Venkata Bojorquez MD - 04/27/2003 12:01 AM CST Progress Notes signed by Venkata Bojorquez MD at 09/02/03 1535 Author: Venkata Bojorquez MD Service: (none) Author Type: Physician Filed: 06/07/10 1916 Note Time: 04/27/03 0001 Status: Signed Lathe Operator: Venkata Bojorquez MD (Physician) NAME: MARII JOSÉ MR: [id number] ACCT: VISIT: [id number] DICTATING CLINICIAN: VENKATA BOJORQUEZ MD JOB: [id number] CLINIC PROGRESS NOTE DATE OF VISIT: 04/27/2003 SUBJECTIVE: Marii is a 33-year-old female who comes in today with concerns of a painful area underneath her right breast, on her rib cage, that has been present for approximately the last week, becoming more painful and red. She has not had any fevers, chills, fatigue, nausea, vomiting. MEDICATIONS: Inderal, amitriptyline, Lo/Ovral. ADR/ALLERGIES: NO KNOWN DRUG ALLERGIES. PAST MEDICAL HISTORY: Significant for migraine headaches, otherwise healthy. SOCIAL HISTORY: Tobacco: None. OBJECTIVE: VS: BP: 100/60. T: 100.2 orally. P: 68. Wt: 167. GENERAL: Patient is a pleasant, healthy, well-developed, well-nourished female in no distress. NECK: Supple. No lymphadenopathy. No thyromegaly. No supraclavicular or infraclavicular lymphadenopathy. Breathing nonlabored. LUNGS: Clear to auscultation. HEART: Regular with distinct S1, S2. No murmurs or extra sounds. CHEST: ? right lateral aspect, inferior to the right breast, there is an area of erythema, warmth, and swelling. This mass is slightly ? in the center. No drainage from the area. ASSESSMENT: Infected sebaceous cyst with cellulitis. PLAN: Patient is to start Keflex 500 mg one p.o. q.i.d. x7 days. If the area is still angry appearing after seven days of the antibiotic, she should call in to get an additional three, be re-evaluated if she develops fevers, chills, increasing pain. We discussed once the sebaceous cyst is no longer infected she should come back in for removal. SRR:[id number] C: 07/27/03 09:52 DOCUMENT: [id number] Phone Note, Clinician - 04/08/2003 12:01 AM CST Phone Note filed by Clinician Phone Note at 06/05/10 1321 Author: Clinician Phone Note Service: (none) Author Type: Resource Filed: 06/05/10 1321 Note Time: 04/08/03 0001 Status: Signed Lathe Operator: Clinician Phone Note (Resource) TO: VENKATA BOJORQUEZ FROM: STORMY VAZQUEZ [phone] 04/08/03 * PROVIDER MESSAGE: RETURN * 12:08PM * CALL REQUESTED * MESSAGE: Pt is currently taking 150mg * HOME PHONE:[phone] * of Topamax QD, has not taken at all * CONTACT PHONE:[phone] * this week because she doesn't like * Marii- not urgent, ok to * the way it makes her feel- she has * wait until next week. * been having trouble focusing. Would like to go back to taking Amitryptyline 10mg 2 QHS and Propanalol 40mg BID instead. Please call and discuss options with her. SUBJECTIVE: ALLERGIES/SENSITIVITIES... none 03/02/03 CURRENT MEDICATIONS... Topamax 03/02/03 PERTINENT PAST HISTORY... migraines 03/02/03 WEIGHT: ASSESSMENT: Topamax questions PLAN: DISPOSITION: NO DISPOSITION GIVEN CALL BY STORMY VAZQUEZ 04/08/2003 12:05PM [phone] ADDENDUM: <> 04/08/2003 01:24PM by CAROL STEVENS DENITRATOR OPERATOR: Dr. Bojorquez ok'd rx for amitriptyline and Propanolol. Rx called for Amitriptyline 10mg 2 at QHS #60 with 6 refills and Propanolol 40mg BID #60 with 6 refills. Pt. notified. Phone Note, Clinician - 03/02/2003 12:01 AM CST Phone Note filed by Clinician Phone Note at 06/05/10 1301 Author: Clinician Phone Note Service: (none) Author Type: Resource Filed: 06/05/10 1301 Note Time: 03/02/03 0001 Status: Signed Lathe Operator: Clinician Phone Note (Resource) TO: VENKATA BOJORQUEZ FROM: ESTEFANY CANTU [phone] 03/02/03 * PROVIDER MESSAGE: ROUTINE * 02:51PM * *WITHIN 4 HOURS * MESSAGE: Clarification from previous * HOME PHONE:[phone] * RX for Topamax It is to be Topamax * CONTACT PHONE:[phone] * 25mg th ree tabs PO daily x one * PHARMACY: [phone] * week then increase by 25mg weekly * [facility] * up to 150mg weekly. Pharm needed clarification re: daily. Pharm informed. SUBJECTIVE: ALLERGIES/SENSITIVITIES... none 03/02/03 CURRENT MEDICATIONS... Topamax 03/02/03 PERTINENT PAST HISTORY... migraines 03/02/03 WEIGHT: ASSESSMENT: Rx PLAN: DISPOSITION: NO DISPOSITION GIVEN CALL BY ESTEFANY CANTU 03/02/2003 02:45PM [id number] ADDENDUM: Phone Note, Clinician - 03/02/2003 12:01 AM CST Phone Note filed by Clinician Phone Note at 06/05/10 1301 Author: Clinician Phone Note Service: (none) Author Type: Resource Filed: 06/05/10 7786 Note Time: 03/02/03 0001 Status: Signed Lathe Operator: Clinician Phone Note (Resource) TO: VENKATA BOJORQUEZ FROM: DARLINE HAYES RN [phone] * PROVIDER MESSAGE: ROUTINE * 03/02/03 09:42AM * *WITHIN 4 HOURS * MESSAGE: I saw in * HOME PHONE:[phone] * January for my migraines...I take * CONTACT PHONE:[phone] * Topamax to prevent them....she told * PHARMACY: [phone] [facility] * me to call if I was getting * [place] * worse...I am torrez ving 2-3 migraines a week. SUBJECTIVE: ALLERGIES/SENSITIVITIES... none 03/02/03 CURRENT MEDICATIONS... Topamax 03/02/03 PERTINENT PAST HISTORY... migraines 03/02/03 WEIGHT: PATIENT IS NOT . PATIENT IS NOT NURSING. ASSESSMENT: Migraines PLAN: DISPOSITION: NO DISPOSITION GIVEN CALL BY DARLINE HAYES RN 03/02/2003 09:39AM [phone] ADDENDUM: <> 03/02/2003 02:29PM by ESTEFANY CANTU: Per Dr Bojorquez: Rx Topamax 25mg three tabs PO x one week then increas e by 25mg weekly up to 150mg weekly. #180. Rc called to pharm. Pt info rmed. Venkata Bojorquez MD - 02/02/2003 12:01 AM CST Progress Notes signed by Venkata Bojorquez MD at 03/27/03 1903 Author: Venkata Bojorquez MD Service: (none) Author Type: Physician Filed: 06/07/10 1743 Note Time: 02/02/03 0001 Status: Signed Lathe Operator: Venkata Bojorquez MD (Physician) NAME: MARII JOSÉ MR: [id number] ACCT: [id number] VISIT: [id number] DICTATING CLINICIAN: VENKATA BOJORQUEZ MD JOB: [id number] CLINIC PROGRESS NOTE DATE OF VISIT: 02/02/2003 SUBJECTIVE: : 1970Kylah Calix is a 32-year-old female who comes in today for two reasons. The first is that of headaches. The patient had been experiencing headaches, migrainous in nature, one time per week. She had tried propanolol and amitriptyline as prophylaxis, however did not tolerate side effects of these medications and subsequently we started her on Topamax 15 mg and gradually increased her dose. She is currently taking a total of 45 mg. She has not had a headache now for approximately three weeks. Denies any significant side effects of the Topamax and would like to continue. She is also is here for removal of a mole on her back that is raised, right along the brow line and frequently gets irritated. MEDICATIONS: Imitrex p.r.n., Topamax 45 mg two h.s., ? and topical steroid cream. ADR/ALLERGIES: NO KNOWN DRUG ALLERGIES. SOCIAL HISTORY: Patient is a nonsmoker. OBJECTIVE: VS: BP: 110/80. P: 72. Wt: 173. GENERAL: Patient is a pleasant, healthy, mildly obese female in no distress. Skin on the mid ? along the brow line there is a well circumscribed, raised, brown mole that appears somewhat irritated. ASSESSMENT: 1. Migraine headaches. 2. Irritated mole. PLAN: Patient will continue on the Topamax 45 mg daily. She has enough Imitrex to use on a p.r.n. basis. Counseled regarding decreased effectiveness of oral contraceptive pills while she is on this medication. Reminded that she needs some other form of back up. PROCEDURE: Mole removal. Consent was obtained from the patient for removal. Area was cleaned with alcohol. Local anesthesia, lidocaine with epinephrine, and the mole was removed by shave excision. It will be sent for pathology. Patient will be notified of results. TT: CT: [id number] C: 02/15/03 16:26 DOCUMENT: [id number] R AND GREASER documented in this encounter Plan of Treatment Not on filedocumented as of this encounter Visit Diagnoses Not on filedocumented in this encounter Care Teams Weed Controller Relationship Specialty Start Date End Date Theresa Hardy MD PCP - General 05/22/10 03/15/21 [address] [place] [address] documented as of this encounter
--- OUTSIDE RECORDS SUMMARY | 2021-11-09 06:17 | XMS_ITS | Encounter Summary ---
:1970 Author Organization [facility] Address [address] [place] [address] Care Team Providers Name Role Phone Theresa Hardy MD Primary Care Provider Encounter Details Date Type Department Care Team Description 09/28/2002 PN Conversion Only [facility] [address] [address] [place] [address] Social History Tobacco Use Types Packs/Day Years [...] at Date Recorded Female 02/21/2021 8:36 PM CATTLE KNOCKER documented as of this encounter Plan of Treatment Not on filedocumented as of this encounter Visit Diagnoses Not on filedocumented in this encounter Care Teams Datapower Developer Relationship Specialty Start Date End Date Theresa Hardy MD PCP - General 05/22/10 03/15/[address] [place] [address] documented as of this encounter
--- OUTSIDE RECORDS SUMMARY | 2021-11-09 06:17 | XMS_ITS | Encounter Summary ---
:1970 Author [facility] Address [address] [place] [address] Care Team Providers Name Role Phone Theresa Hardy MD Primary Care Provider Encounter Details Date Type Department Care Team Description 01/05/2003 PN Conversion Only [facility] Venkata Bojorquez, Medicine [address] [place] [address] DRIVE [phone] [place] [id number] (Wo rk) Social History Tobacco Use Types [...] at Date Recorded Female 02/21/2021 8:36 PM MICROSTRATEGY ARCHITECT DEVELOPER documented as of this encounter Progress Notes Venkata Bojorquez MD - 01/05/2003 12:01 AM CST Progress Notes signed by Venkata Bojorquez MD at 01/19/03 2153 Author: Venkata Bojorquez MD Service: (none) Author Type: Physician Filed: 06/07/10 1713 Note Time: 01/05/03 0001 Status: Signed Sustainment Logistics Analyst: Venkata Bojorquez MD (Physician) NAME: MARII JOSÉ MR: [id number] ACCT: [id number] VISIT: [id number] DICTATING CLINICIAN: VENKATA BOJORQUEZ MD JOB: [id number] CLINIC PROGRESS NOTE DATE OF VISIT: 01/05/2003 SUBJECTIVE: : 1970. Marii is a 32-year-old female who is new to the clinic. She is here today for a well exam. MEDICATIONS: Amitriptyline 20 mg p.o. q. h.s., Propranolol 40 mg b.i.d., Imitrex 50 mg p.r.n., LoOgestel 28 day and clobetasol propionate cream 0.05%. ADR/ALLERGIES: NO KNOWN DRUG ALLERGIES. PAST MEDICAL HISTORY: Illnesses: Migraine headaches, amenorrhea, eczema, history of a kidney stone in 1995. Surgeries: None. Fractures: Left arm at age [age]. Other hospitalizations include child . Patient is 2, para 2-0-0-3 with normal vaginal deliveries. FAMILY HISTORY: Mother alive age 58, healthy. Father at 55, lymphoma. Two brothers, one sister alive and well. Maternal grandmother late 60's DM. Grandfather 60's pancreatic and liver cancer. Paternal grandmother is alive in her late 70's, history of breast cancer in her early 70's. Maternal grandfather in his 70's of stroke. There is no known family history of uterine, ovarian, cervical or colon cancer. 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 She is . Recently moved here from [place] in September. Nonsmoker. No alcohol. Caffeine use is one to two per day. No regular exercise however, she is busy with her children. Does monthly self breast exams. Wears her seat belt. Gets adequate calcium in her diet. REVIEW OF SYSTEMS: Weight stable. Energy good. No symptoms of depression or anxiety. No respiratory symptoms. No cardiac symptoms. No GI symptoms. : Last menstrual period 12/22/02. Flow every 28 days for four to five days. She has had an abnormal Pap smear, but the repeat is normal. She has had no sexually transmitted diseases. No IUDs. She does have a history of amenorrhea, that is why she is on control pills. She had infertility problems and that is how she had twins using medications to help her get . No urinary symptoms. Neuro: Patient has a history of migraines. At their worst, she was getting them about three times a week. She now gets them maybe twice per month using amitriptyline and Inderal as prophylaxis. She does not however, like the way that they make her feel. Amitriptyline seems to make her tired and hard time getting up in the morning. She was wondering if there were other options for prophylaxis for migraines. She uses Imitrex on a p.r.n. basis. Otherwise, the rest of her complete review of systems is negative. OBJECTIVE: VS: BP: 104/76. P: 72. Ht: 59-1/2 in. Wt: 174. GENERAL: Patient is pleasant, healthy, well-developed, well-nourished female in no distress. Head is normocephalic and atraumatic. Pupils are equal, round, reactive. Conjunctivae clear. Sclerae nonicteric. Ear canals are clear. TMs normal appearing. Mouth mucous membranes moist, no lesions. Posterior oropharynx is clear. Teeth, gums, tongue, lips healthy. NECK: Supple. No lymphadenopathy. No thyromegaly. No supraclavicular or infraclavicular lymphadenopathy. Breathing is nonlabored. LUNGS: Clear to auscultation. HEART: Regular with distinct S1 and S2. No murmurs or extra sounds. BACK: No spinal or CVA tenderness. ABDOMEN: Bowel sounds present. Soft, nontender and nondistended. No hepatosplenomegaly. No masses. GENITALIA: Normal female genitalia. No lesions. BSU is normal. Vaginal and cervical mucosa are healthy appearing. No unusual odor or discharge. Pap was obtained. Bimanual exam: No cervical motion tenderness. Uterus is mobile, nontender. Normal size and contour. Adnexal exam is unremarkable. EXTREMITIES: No clubbing, cyanosis or edema. Peripheral pulses are full. Deep tendon reflexes symmetrical in the upper and lower extremities. Gait, stance, muscle tone and muscle bulk is normal. ASSESSMENT: 1. Routine health care maintenance exam. 2. Family history of diabetes. 3. Migraine headaches. PLAN: Pap was obtained today. Patient will be notified of results. Will also check a screening fractionated cholesterol. Reviewed with patient regular exercise, and doing her monthly self breast exam. She was given patient education material and a card to hang in her shower, and reviewed the amount of calcium needed in her diet. Will also check a screening glucose as there is a family history of diabetes in her family. As far as her migraines go, I recommended that she continue the amitriptyline and Inderal. Her other option was to switch Inderal to a calcium channel jeremy however, this may also have side-effects and as long as these two medications are working its probably the best medication for her at this time. I also gave her of Imitrex, oral contraceptive pills, these were also refilled for her. LoOgestrel 28 day. Next well exam should be in one years time, sooner as needed. TT: CT: [id number] C: 01/09/03 21:50 DOCUMENT: [id number] OSTRATEGY ARCHITECT DEVELOPER documented in this encounter Plan of Treatment Not on filedocumented as of this encounter Visit Diagnoses Not on filedocumented in this encounter Care Teams Inspector Paper Products Relationship Specialty Start Date End Date Theresa Hardy MD PCP - General 05/22/10 03/15/21 [address] [place] [address] documented as of this encounter
--- OUTSIDE RECORDS SUMMARY | 2021-11-09 06:17 | XMS_ITS | Encounter Summary ---
:1970 Author Organization [facility] Address [address] [place] [address] Care Team Providers Name Role Phone Theresa Hardy MD Primary Care Provider Encounter Details Date Type Department Care Team Description 11/09/2003 PN Conversion Only [facility] [address] [address] [place] [address] Social History Tobacco Use Types Packs/Day Years [...] at Date Recorded Female 02/21/2021 8:36 PM BRAKE HOLDER documented as of this encounter Plan of Treatment Not on filedocumented as of this encounter Visit Diagnoses Not on filedocumented in this encounter Care Teams Collection Support Specialist Relationship Specialty Start Date End Date Theresa Hardy MD PCP - General 05/22/10 03/15/[address] [place] [address] documented as of this encounter
== END 2021-11-09 06:12 | disposition home or self-care (01) ==
PROVIDERS: PCP Family Medicine; Visit Provider Internal Medicine
DX: Z12.11 Encounter for screening for malignant neoplasm of colon (principal); K57.30 Diverticulosis of large intestine without perforation or abscess without bleeding
CPT/HCPCS: 45378; J2250; J3010

== ENCOUNTER 2021-11-26 15:01 | Outpatient (CLI) | payer OTHER, SELFPAY ==
--- OUTSIDE RECORDS SUMMARY | 2021-11-26 15:05 | XMS_ITS | Clinical Summary ---
:1970 Author Organization [facility] [place] [address] Care Team Providers Name Role Phone [facility] Unavailable Unavailable Pcp, No Primary Care [...] Comments Blood Pressure 110/72 04/23/2017 12:07 PM MANUFACTURING MECHANIC Pulse 75 04/23/2017 12:07 PM MANUFACTURING MECHANIC Temperature - - Respiratory Rate - - Oxygen Saturation 96% 04/23/2017 12:07 PM MANUFACTURING MECHANIC Inhaled Oxygen Concentration - - Weight 78.6 kg (173 lb 4.8 oz) 04/23/2017 12:07 PM MANUFACTURING MECHANIC Height - - Body Mass Index - [...] Addre ss Type Group PREFERRED ONE PREFERRED [id number] 2016-Present [address] [place] [address] [employer] Occ Other 02/18/2008 [facility] (Home) PAYABLE [phone] [employer] (Work) [place] [address] Care Teams Associate Vice President Relationship Specialty Start Date End Date Pcp, No PCP - General 04/23/[address] [facility] 03/26/17
--- OUTSIDE RECORDS SUMMARY | 2021-11-26 15:06 | XMS_ITS | Encounter Summary ---
:1970 Author [facility] Address [address], [place] [address] Care Team Providers Name Role Phone David Choudhury MD Primary Care Provider [phone] Encounter Details Date Type Department Care Team Description 03/16/2021 Orders Only [facility] DEPARTMENT Provider, Vilma alejandro [place] [address] Social History Tobacco Use Types Packs/Day Years [...] at Date Recorded Female 02/21/2021 8:36 PM PROFESSIONAL SPORTS SCOUT documented as of this encounter Plan of Treatment Upcoming Encounters Date Type Specialty Care Team Description 01/02/2022 Appointment Radiology Kian Hanks, MBBS [address], [place] [address] (Wo rk) 01/04/2022 Appointment Oncology Kian Winters, JUANCARLOS [address] [address] (Wo rk) documented as of this encounter Procedures Procedure Name Priority Date/Time Associated Diagnosis Comme nts EKG 03/16/2021 Results for thi s procedure are in the resu lts section. documented in this encounter Results EKG (03/16/2021) Narrative This result has an attachment that is no t available. Interface Provider EKG documented in this encounter Visit Diagnoses Not on filedocumented in this encounter Care Teams Shell Grader Relationship Specialty Start Date End Date David Choudhury MD PCP - General Family Practice 03/16/21 [address] [place] [id number] documented as of this encounter
--- OUTSIDE RECORDS SUMMARY | 2021-11-26 15:06 | XMS_ITS | Encounter Summary ---
:1970 Author Organization [facility] Address [address] [place] [address] Care Team Providers Name Role Phone David Choudhury MD Primary Care Provider [phone] Reason for Visit Procedure/Equipment (Routine) - Incomplete Specialty Diagnoses / Procedures Referred By Contact Refer red To Contact Diagnoses Lung mass Greyson Ovalle MD Procedures XR Chest 2 Views [address] [place], [place] [address] Referral ID Status Reason Start Date Expiration Date Visits V isits Requested Authorized [id number] Incomplete 09/17/2021 12/17/2022 1 1 Encounter Details Date Type Department Care Team Description 09/17/2021 Ancillary Procedure [facility] X-R ay Greyson Ovalle, Lung mass [address] Mukherjee MD [place], [place] [address] [facility] [address] [place], [place] [phone] (Wo rk) Social History Tobacco Use Types [...] at Date Recorded Female 02/21/2021 8:36 PM HEALTH AND SOCIAL CARE TEACHER documented as of this encounter Plan of Treatment Upcoming Encounters Date Type Specialty Care Team Description 01/02/2022 Appointment Radiology PN Kian Winters MBBS [address] [facility] [place] [id number] (Wo rk) 01/04/2022 Appointment Oncology Kian Winters MBBS [address] [facility] [place] [id number] (Wo rk) documented as of this encounter [...] chest documented in this encounter Care Teams Gas Leak Inspector Relationship Specialty Start Date End Date David Choudhury MD PCP - General Family Practice 03/16/21 [address] [place] [address] documented as of this encounter
--- OUTSIDE RECORDS SUMMARY | 2021-11-26 15:06 | XMS_ITS | Encounter Summary ---
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
--- OUTSIDE RECORDS SUMMARY | 2021-11-26 15:06 | XMS_ITS | Encounter Summary ---
:1970 Author Organization [facility] Address [address], [place] [address] Care Team Providers Name Role Phone David Choudhury MD Primary Care Provider [phone] Reason for Referral Procedure/Equipment (Routine) - Incomplete Specialty Diagnoses / Procedures Referred By Contact Refer red To Contact Procedures Sha Coulter PA-C XR Chest 1 View [address] [place], [place] [address] Referral ID Status Reason Start Date Expiration Date Visits V isits Requested Authorized [id number] Incomplete 03/20/2021 06/19/2022 1 1 CARRIER OPERATOR (Routine) - Incomplete Specialty Diagnoses / Procedures Referred By Contact Refer red To Contact Procedures Tommy Amador MD US Anesthesia Guided Block [address] [place], [place] [address] Referral ID Status Reason Start Date Expiration Date Visits V isits Requested Authorized [id number] Incomplete 03/16/2021 06/15/2022 1 1 CARRIER OPERATOR (Routine) - Incomplete Specialty Diagnoses / Procedures Referred By Contact Refer red To Contact Diagnoses Malignant neoplasm of lower lobe of right lung (HRC) Gina Tierney MD Procedures ECG 12 Lead Inpatient [address], [place] [address] Referral ID Status Reason Start Date Expiration Date Visits V isits Requested Authorized [id number] Incomplete 03/16/2021 06/15/2022 1 1 CARRIER OPERATOR Reason for Visit Auth/Cert Specialty Diagnoses / Procedures Referred By Contact Refer red To Contact Diagnoses Malignant neoplasm of lower lobe of right lung (HRC) Procedures THORACOSCOPY/THORACOTOMY/LUNG RESECTION Referral ID Status Reason Start Date Expiration Date Visits Requ ested Visits Authorized [id number] 1 1 Encounter Details Date Type Department Care Team Description 03/16/2021 - Hospital Encounter [facility] 5[facility] Gina Tierney, [place] (Primary Dx); 03/21/2021 Oncology Med Surg Malignant neoplasm of lower lobe of righ t lung (HRC) [address] [facility]. [facility] [address] [phone] Social History Tobacco Use Types Packs/Day Years [...] at Date Recorded Female 02/21/2021 8:36 PM LOG CARRIER OPERATOR documented as of this encounter Last Filed Vital Signs Vital Sign Reading Time Taken Comments Blood Pressure 107/69 03/21/2021 9:59 AM LOG CARRIER OPERATOR Pulse 62 03/21/2021 9:59 AM LOG CARRIER OPERATOR Temperature 37 ??C (98.6 ??F) 03/21/2021 9:59 AM LOG CARRIER OPERATOR Respiratory Rate 17 03/21/2021 9:59 AM LOG CARRIER OPERATOR Oxygen Saturation 96% 03/21/2021 9:59 AM LOG CARRIER OPERATOR Inhaled Oxygen Concentration - - Weight 73.9 kg (163 lb) 03/19/2021 6:01 PM LOG CARRIER OPERATOR Height 149.9 cm (4' 11) 03/16/2021 8:29 PM LOG CARRIER OPERATOR Body Mass Index 32.92 03/16/2021 8:29 PM LOG CARRIER OPERATOR documented in this encounter Discharge Summaries Nathaly Gonzalez PA-C - 03/21/2021 2:20 PM CST DISCHARGE SUMMARY Patient ID: Fifi Kasper [id number] y.o. 1970 Admit date: 03/16/2021 Discharge [...] Fri04/18/2006, Oral, FaxPN: LW called/fax pharm:[facility] Fax #:[phone] !! - Potential duplicate medications found. Please [...] will arrange your first appointment with them. CARRIER OPERATOR documented in this encounter Discharge Instructions Discharge Instr - Other KayleighRuNathaly angeles PA-C - 03/21/2021 12:38 PM LOG CARRIER OPERATOR CT Surgery Discharge Instructions Please shower and gently wash incisions daily. Change dressings over chest tube sites daily until dry, then leave open to air. No driving until seen by surgeon in follow-up. No heavy lifting or strenuous activity. Watch for signs of infection: redness, fever, warmth to incision, odor from incision-call surgeon's office with any of these symptoms. CARRIER OPERATOR documented in this encounter Medications at Time [...] including possible side effects. Prescriptions filled by [facility] pharmacy. Belongings checklist reviewed with patient and belongings sent. Care plan issues addressed and education record updated. R: Patient verbalizes understanding and teaches back discharge instructions. Patient discharged by: wheelchair with family. CARRIER OPERATOR Nathaly Gonzalez PA-C - 03/21/2021 12:33 PM [...] Out: 1740 [Urine:1470; Chest Tube:270] UOP: 100/8h PRINTED CIRCUIT BOARD PREASSEMBLER: 270/24 Air Leak: No Current Weight: 163 lb (86800 g) Admission Weight: 161 PHYSICAL EXAM: Heart: [...] as long as pain is treated appropriately CARRIER OPERATOR Kj Nagy MD - 03/21/2021 6:28 AM CST Anesthesiology Acute Pain Progress Note POD# 5 Epidural for pain SUBJECTIVE: Pain at rest 0/10, dynamic pain 1/10 Nausea no Pruritis no OBJECTIVE: Catheter site: old heme ASSESSMENT/PLAN: Continue current therapy yes Likely d/c today by CV surgery Kj Nagy MD 6:29 AM, 03/21/2021 CARRIER OPERATOR JAYDEN BOLES - 03/21/2021 6:13 AM CST [...] Resp: 17 Temp: 36.9 ??C (98.5 ??F) CARRIER OPERATOR Emani Joe RN - 03/20/2021 6:13 PM CST Shift [id number] Epidural still running at 10mL/h. Pain well managed. R CT y-site, provider changed dressig in AM. Total CT output 130mL. CXR in afternoon, is on oral lasix. Ambulating in halls with RN, up in chair often. On RA, continuous pulse ox, working on IS. Overall pleasant & can make needs known. CARRIER OPERATOR Sha Coulter PA-C - 03/20/2021 11:38 AM [...] Out: 2474 [Urine:5; Chest Tube:250] UOP: 600/8h PRINTED CIRCUIT BOARD PREASSEMBLER: 170 since 2299 on 03/19/21 Air Leak: No Current Weight: 163 lb (95442 g) Admission Weight: 161 PHYSICAL EXAM: Heart: [...] (4 walks per day) and IS use CARRIER OPERATOR Dennis Owusu MD - 03/20/2021 8:40 AM CST Anesthesiology Acute Pain Progress Note 03/20/2021, 8:40 AM Fifi Kasper [id number] 1970 Iinfusion rate: 10 ml/hr SUBJECTIVE: Pain [...] Discontinue tomorrow: possible, depending on chest tubes. CARRIER OPERATOR Emani Joe RN - 03/19/2021 6:45 PM CST Shift [id number] Epidural still running at 10mL/h. R CT y-sited & air leak present-- not new occurrence. Total output 200mL. Provided torodol x1 for shoulder/CT site pain w/ relief. C/o generalized itching, provided benadryl x1 with improvement. Is ambulating in halls with RN, up in chair often. On RA, continuous pulse ox. Overall pleasant & can make needs known. CARRIER OPERATOR Abdoulaye Silvestre APRN, TEST INSPECTION ENGINEER - 03/19/2021 10:07 AM CST DAILY PROGRESS [...] Out: 5 [Urine:2024; Chest Tube:330] UOP: 1050/8h PRINTED CIRCUIT BOARD PREASSEMBLER: 170/8h Air Leak: No Current Weight: 161 lb (57238 g) Admission Weight: 161 PHYSICAL EXAM: Heart: [...] (4 walks per day) and IS use CARRIER OPERATOR Tommy Amador MD - 03/19/2021 7:14 AM CST Anesthesiology Acute Pain Progress Note 03/19/2021, 7:14 AM Fifi Ranjith [id number] 1970 Surgical Procedure: R Thoracoscopy/RLL Resection Post-op [...] well Discontinue once chest tubes are removed CARRIER OPERATOR Nathaly Gonzalez PA-C - 03/18/2021 9:45 AM [...] Out: 2720 [Urine:2300; Chest Tube:420] UOP: 350/8h PRINTED CIRCUIT BOARD PREASSEMBLER: 130/8h Air Leak: Yes Current Weight: 161 lb (33047 g) Admission Weight: 161 PHYSICAL EXAM: Heart: [...] Acute Pain Progress Note 03/18/2021 Fifi Kasper [id number] 1970 Patient is post-op day # 2 [...] BP: 101/40 Pulse: 67 Resp: 18 Temp: CARRIER OPERATOR Nathaly Gonzalez PA-C - 03/17/2021 10:23 AM [...] Out: 1371 [Urine:1050; Chest Tube:121] UOP: 800/8h PRINTED CIRCUIT BOARD PREASSEMBLER: 80/8h Air Leak: Yes Current Weight: 161 lb (05427 g) Admission Weight: 161 PHYSICAL EXAM: Heart: [...] Resp: 16 Temp: 36.9 ??C (98.4 ??F) CARRIER OPERATOR Adela Parker RN - 03/16/2021 8:45 PM CST ADMIT O: Admitted patient via cart from Post-Anesthesia Recovery to bed # [id number]. D: Patient is alert and oriented x 4 See Admission Assessments. A: Discussed plan of care. See education record for admission education. Oriented to room. Call light in reach. Bed alarm: on R: Patient status: VSS, pain controlled. Will monitor. CARRIER OPERATOR documented in this encounter Procedure Notes Gina Tierney MD - 03/16/2021 5:56 PM CST [facility] Brief Operative Progress Note Surgery Date: 03/16/2021 [...] 03/16/2021 1722 Complications / Findings: As expected CARRIER OPERATOR Gina Tierney MD - 03/16/2021 12:00 AM CST NAME: FIFI KASPER CSN: [id number] OPERATIVE REPORT DATE OF SURGERY: 03/16/2021 : 1970 SURGEON: GINA TIERNEY MD PREOPERATIVE DIAGNOSIS: Adenocarcinoma of the right lower lobe. POSTOPERATIVE DIAGNOSIS: Adenocarcinoma of the right lower lobe. PROCEDURE: Right lower lobectomy with a minimally invasive video-assisted thoracoscopic technique. COMMUTER PILOT: Nathaly Gonzalez PA-C. SPECIMEN: Station 9, 2, [...] chest was irrigated with saline and two 24-Ugandan chest tubes were placed and secured with #2 nylon sutures. The myofascial layers were closed with 2-0 Vicryl and deep dermal tissue was closed with 3-0 Vicryl. The skin was closed with 4-0 Monocryl. All sponge, needle, instrument counts were correct at the conclusion of the operation. I, Gina Tierney, was present and scrubbed for the entire procedure. GINA TIERNEY MD TAS/AQS /[id number] CARRIER OPERATOR documented in this encounter Plan of Treatment Upcoming Encounters Date Type Specialty Care Team Description 01/02/2022 Appointment Radiology PN Kian Winters MBBS [address] [facility] N [address] (Wo rk) 01/04/2022 Appointment Oncology Kian Winters MBBS [address] [facility] [place] N [address] (Wo rk) documented as of this encounter Procedures Procedure Name Priority Date/Time Associated Diagnosis Comme nts XR CHEST 1 VIEW Routine 03/20/2021 4:41 PM Result s for this LOG CARRIER OPERATOR procedure are i n the results section. HEMOGLOBIN, BLOOD STAT 03/16/2021 6:37 PM Resu lts for this LOG CARRIER OPERATOR procedure are i n the results section. POTASSIUM STAT 03/16/2021 6:37 PM Results f or this LOG CARRIER OPERATOR procedure are i n the results section. SURGICAL PATHOLOGY Routine 03/16/2021 2:48 PM Malignant neopla sm Results for this LOG CARRIER OPERATOR of lower lobe of procedure a re in right lung (HRC) the results section. THORACOSCOPY/THORAC 03/16/2021 1:19 PM Malignant neopl asm OTOMY/LUNG LOG CARRIER OPERATOR of lower lobe of RESECTION right lung (HRC) Case Notes XRAY TAKEN AT END OF CASE BT SECOND DRAW STAT 03/16/2021 10:21 Results f or this AM LOG CARRIER OPERATOR procedure are i n the results section. GLUCOSE, WHOLE BLOOD Routine 03/16/2021 10:17 Res ults for this POCT AM LOG CARRIER OPERATOR procedure are i n the results section. ECG 12 LEAD INPATIENT Specified Time 03/16/2021 10:08 Malignant Results for this AM LOG CARRIER OPERATOR neoplasm of procedure are i n lower lobe of the results right lung (HRC) section. US ANESTHESIA GUIDED STAT 03/16/2021 10:06 Res ults for this BLOCK AM LOG CARRIER OPERATOR procedure are i n the results section. TYPE AND SCREEN Routine 03/16/2021 9:52 Malignant Results f or this AM LOG CARRIER OPERATOR neoplasm of procedure are i n lower lobe of the results right lung (HRC) section. CBC AND DIFFERENTIAL STAT 03/16/2021 9:52 Malignant Resu lts for this PANEL AM LOG CARRIER OPERATOR neoplasm of procedure are i n lower lobe of the results right lung (HRC) section. ANTIBODY SCREEN Routine 03/16/2021 9:52 Malignant Results f or this AM LOG CARRIER OPERATOR neoplasm of procedure are i n lower lobe of the results right lung (HRC) section. BLOOD TYPE Routine 03/16/2021 9:52 Malignant Results for this AM LOG CARRIER OPERATOR neoplasm of procedure are i n lower lobe of the results right lung (HRC) section. COMPLETE BLOOD STAT 03/16/2021 9:52 Malignant Results fo r this COUNT-W/DIFF AM LOG CARRIER OPERATOR neoplasm of procedure are i n lower lobe of the results right lung (HRC) section. BASIC METABOLIC PANEL STAT 03/16/2021 9:52 Malignant Res ults for this AM LOG CARRIER OPERATOR neoplasm of procedure are i n lower lobe of the results right lung (HRC) section. APTT (ACTIVATED STAT 03/16/2021 9:52 Malignant Results f or this PARTIAL AM LOG CARRIER OPERATOR neoplasm of procedure are i n THROMBOPLASTIN TIME lower lobe of the res ults right lung (HRC) section. INR/PROTIME STAT 03/16/2021 9:52 Malignant Results for this AM LOG CARRIER OPERATOR neoplasm of procedure are i n lower lobe of the results right lung (HRC) section. POCT URINE STAT 03/16/2021 9:40 Resu lts for this AM LOG CARRIER OPERATOR procedure are i n the results section. documented in this encounter Results XR Chest 1 View (03/20/2021 4:41 PM LOG CARRIER OPERATOR) Anatomical Region Laterality Modality Chest, Lung Digital Radiography Specimen (Source) Anatomical Collection Method Collection Time Re ceived Time Location / / Volume Laterality 03/20/2021 4:36 PM LOG CARRIER OPERATOR Impressions 03/20/2021 4:47 PM LOG CARRIER OPERATOR COMPARISON: ??03/16/2021 FINDINGS: Patient rotated. Prior ET [...] Sha ANDRE GD POTASSIUM (03/16/2021 6:37 PM LOG CARRIER OPERATOR) athologist Signature Potassium 3.7 3.5 - 5.1 03/16/2021 [facility] mmol/L 7:03 PM LOG CARRIER OPERATOR LABORATORY Specimen Anatomical Collection Method / Collection Time Recei leoncio Time (Source) Location / Volume Laterality Blood Venipuncture / 03/16/2021 6:37 03/16/2021 6:50 Unknown PM LOG CARRIER OPERATOR PM LOG CARRIER OPERATOR Gina Tierney MD LAB_1 Performing Organization Address City/State/ZIP Code Phon e Number [facility] [address] [place] [address] HEMOGLOBIN, BLOOD (03/16/2021 6:37 PM LOG CARRIER OPERATOR) athologist Signature Hemoglobin 12.3 12.0 - 15.5 03/16/2021 [facility] g/dL 6:53 PM LOG CARRIER OPERATOR LABORATORY Specimen Anatomical Collection Method / Collection Time Recei leoncio Time (Source) Location / Volume Laterality Blood Venipuncture / 03/16/2021 6:37 03/16/2021 6:50 Unknown PM LOG CARRIER OPERATOR PM LOG CARRIER OPERATOR Gina Tierney MD LAB_1 Performing Organization Address City/State/ZIP Code Phon e Number [facility] [address] [place] [address] Surgical Path (03/16/2021 2:48 PM LOG CARRIER OPERATOR) Component Value Ref Test Analysis Performed At [facility] gist Range Method Time Signature Case Report Surgical Pathology ?Case: [id number] ? 03/21/2021 [facility] Authorizing Provider: ??Gina Estrada MD ?Collected: ? 03/16/2021 1448 ? 3:24 PM LABO RATORY Ordering Location: ? [facility] ?? Received: ?03/16/2021 1459 ? LOG CARRIER OPERATOR Pathologist: ? Augie Escalera MD ? Specimens: [...] A. Lymph node, STATION 9, biopsy: 03/21/2021 [facility] Electronically Please see synoptic report for details 3 :24 PM LABORATORY signed by LOG CARRIER OPERATOR Augie Escalera B. Lymph node, STATION 7, [...] report for details Synoptic Report LUNG 03/21/2021 [facility] LUNG: RESECTION - All Specimens 3:24 PM LABORATORY 8th Edition - Protocol posted: 06/16/2019 LOG CARRIER OPERATOR SPECIMEN ?? Procedure: ?Wedge resection ?? Specimen [...] Lymph Nodes (pN): ?pN0 Clinical Malignant 03/21/2021 [facility] Information neoplasm of 3:24 PM LABORATORY lower lobe of LOG CARRIER OPERATOR right lung (HRC) Microscopic Microscopic 03/21/2021 [facility] Description examination is 3:24 PM LABORATORY performed. LOG CARRIER OPERATOR Special Stains The stain controls have been reviewed and stain appropriately. Elastic stain performed on block E6 does not demonstrate visceral pleural invasion. 03/21/2021 [facility] 3:24 PM LABORATORY LOG CARRIER OPERATOR Gross A: 03/21/2021 [facility] Description The specimen is received beth for frozen section and labeled with the patient's name and Lymph node, STATION 9. The specimen consists of a 0.2 cm tissue fragment. The specimen is entirely submitted for frozen section in cassette A1. DJ 3:24 PM LABORATORY LOG CARRIER OPERATOR B: The specimen is received beth for frozen section and labeled with the patient's name and Lymph node, STATION 7. The specimen consists of multiple fragments of soft tissue aggregating to 1 x 1 x 0.5 c m. The specimen is entirely submitted for frozen section i n cassette B1. DJ C: The specimen is received beth for frozen [...] The remaining parenchyma is purple-brown and spongy. Child Center Assistant sections are submitted as follows: E1: Frozen section remnant, en face parenchymal margin neare st mass E2: En face bronchial margin E3: En face vascular margins E4: 3 whole possible lymph nodes E5: Additional en face parenchymal margin near mass is E6-E10: Mass entirely submitted with area of pleural puckeri ng E11: Smaller nodules, whole E12: Child Center Assistant uninvolved parenchyma F: The specimen is received [...] margin/previous staple line). DJ Intraoperative A: 03/21/2021 [facility] Consultation Frozen section diagnosis (FS A1): Station 9 lymph node -- negative. (Result called into OR [facility] by [facility] at 3:11 PM, 03/16/2021) 3:24 PM LABORATORY LOG CARRIER OPERATOR B: Frozen section diagnosis (FS B1): Station 7 lymph node -- negative. (Result called into OR 6 by [facility] at 3:19 PM, 03/16/2021) C: Frozen section diagnosis (FS C1): Station 4R and 2R -- negative. (Result called into OR 6 by J[facility] at 4:22 PM, 03/16/2021) E: Frozen section diagnosis (FS E1): Right lower lobe -- positive for carcinoma. (Result called into OR 6 by [facility] at 5:05 PM, 03/16/2021) F: Frozen section diagnosis (FS F1): Right upper lobe wedge -- negative. (Result called into OR 6 by [facility] at 5:41 PM, 03/16/2021) Embedded Images 03/21/2021 [facility] 3:24 PM LABORATORY LOG CARRIER OPERATOR Specimen Anatomical Collection Method Collection Time Receive d Time (Source) Location / / Volume Laterality Tissue LYMPH NODE BIOPSY 03/16/2021 2:48 PM 02/18 2:59 SPECIMEN / Unknown LOG CARRIER OPERATOR PM LOG CARRIER OPERATOR Tissue specimen LYMPH NODE BIOPSY 03/16/2021 3:01 PM 0 03/16/2021 3:08 (specimen) SPECIMEN / Unknown LOG CARRIER OPERATOR PM LOG CARRIER OPERATOR Tissue specimen LYMPH NODE BIOPSY 03/16/2021 3:51 PM 0 03/16/2021 4:07 (specimen) SPECIMEN / Unknown LOG CARRIER OPERATOR PM LOG CARRIER OPERATOR Tissue specimen LYMPH NODE BIOPSY 03/16/2021 4:16 PM 0 03/16/2021 4:35 (specimen) SPECIMEN / Unknown LOG CARRIER OPERATOR PM LOG CARRIER OPERATOR Tissue specimen SPECIMEN FROM LUNG 03/16/2021 4:29 PM 03/16/2021 4:35 (specimen) / Unknown LOG CARRIER OPERATOR PM LOG CARRIER OPERATOR Tissue specimen SPECIMEN FROM LUNG 03/16/2021 5:22 PM 03/16/2021 5:27 (specimen) / Unknown LOG CARRIER OPERATOR PM LOG CARRIER OPERATOR Gina Tierney MD LAB PATHOLOGY Performing Organization Address City/[facility]/ZIP Code Phon e Number [facility] [address] [place] [id number] Blood Type second draw (03/16/2021 10:21 AM LOG CARRIER OPERATOR) P athologist Signature ABO O 03/16/2021 [facility] 12:05 PM LOG CARRIER OPERATOR BLOOD BANK RH Negative 03/16/2021 [facility] 12:05 PM LOG CARRIER OPERATOR BLOOD BANK Specimen Anatomical Collection Method / Collection Time Recei leoncio Time (Source) Location / Volume Laterality Blood Venipuncture / 03/16/2021 10:21 Unknown AM LOG CARRIER OPERATOR 10:40 AM LOG CARRIER OPERATOR Gina Tierney MD LAB_1 Performing Organization Address [facility] Code Phon e Number [facility] [address] [place] [address] Glucose, Whole Blood POCT (03/16/2021 10:17 AM LOG CARRIER OPERATOR) Analysis Performed At Patho logist Time Signature Glucose, Whole 90 70 - 180 03/16/2021 [facility] Blood mg/dL 10:19 AM LOG CARRIER OPERATOR LABORATORY Performing MT SURG 03/16/2021 [facility] Location 10:19 AM LOG CARRIER OPERATOR LABORATORY Specimen Anatomical Collection Method Collection Time Receive d Time (Source) Location / / Volume Laterality Blood 03/16/2021 10:17 03/16/2021 AM LOG CARRIER OPERATOR 10:19 AM LOG CARRIER OPERATOR Gina Tierney MD LAB_1 Performing Organization Address [facility]/ZIP [facility] Phon e Number [facility] [address] [place] [address] ECG 12 Lead Inpatient (03/16/2021 10:08 AM LOG CARRIER OPERATOR) P athologist Signature Ventricular Rate 54 BPM [facility] Atrial Rate 54 BPM [facility] P-R Interval 154 ms [facility] QRS Duration 86 ms [facility] QT 448 ms [facility] QTc 424 ms [facility] P [place] 55 degrees [facility] R [place] 8 degrees [facility] T [place] 59 degrees [facility] Specimen (Source) Anatomical Collection Method Collection Time Re ceived Time Location / / Volume Laterality 03/16/2021 10:08 AM LOG CARRIER OPERATOR Narrative [facility] - 03/16/2021 10:23 AM LOG CARRIER OPERATOR Sinus bradycardia Poor R wave progression Abnormal [...] e Number [facility] [address] [place] [address] US Anesthesia Guided Block (03/16/2021 10:06 AM LOG CARRIER OPERATOR) Anatomical Region Laterality Modality Ultrasound Specimen (Source) Anatomical Location Collection Method / Collectio n Time Received Time / Laterality Volume Narrative 03/16/2021 10:06 AM LOG CARRIER OPERATOR If an Anesthesia block was performed please see the Anesthesia encounter for documentation. ??This procedure was performed and interpreted by the performing provider. ?? Tommy Amador MD RAD US Antibody Screen (03/16/2021 9:52 AM LOG CARRIER OPERATOR) [facility] Method Time Signature Antibody Screen Negative 03/16/2021 [facility] Interpretation 11:02 AM LOG CARRIER OPERATOR BLOOD BANK Specimen Anatomical Collection Method / Collection Time Recei leoncio Time (Source) Location / Volume Laterality Blood Venipuncture / 03/16/2021 9:52 03/16/2021 Unknown AM LOG CARRIER OPERATOR 10:02 AM LOG CARRIER OPERATOR Gina Tierney MD LAB_1 Performing Organization Address City/State/ZIP Code Phon e Number [facility] [address] [place] [address] Blood Type (03/16/2021 9:52 AM LOG CARRIER OPERATOR) P athologist Signature ABO O 03/16/2021 [facility] 11:02 AM LOG CARRIER OPERATOR BLOOD BANK RH Negative 03/16/2021 [facility] 11:02 AM LOG CARRIER OPERATOR BLOOD BANK Specimen Anatomical Collection Method / Collection Time Recei leoncio Time (Source) Location / Volume Laterality Blood Venipuncture / 03/16/2021 9:52 03/16/2021 Unknown AM LOG CARRIER OPERATOR 10:02 AM LOG CARRIER OPERATOR Gina Tierney MD LAB_1 Performing Organization Address City/State/ZIP Code Phon e Number [facility] [address] [place] [address] (ABNORMAL) Complete Blood Count-W/Diff (03/16/2021 9:52 AM LOG CARRIER OPERATOR) Patholo gist Method Time Signature WBC 4.8 3.5 - 10.5 03/16/2021 [facility] x10(9)/L 10:08 AM LOG CARRIER OPERATOR LABORATORY RBC 3.83 (L) 3.90 - 03/16/2021 [facility] 5.03 10:08 AM LOG CARRIER OPERATOR LABORATORY x10(12)/L Hemoglobin 12.1 12.0 - 03/16/2021 [facility] 15.5 g/dL 10:08 AM LOG CARRIER OPERATOR LABORATORY HCT 37.2 34.9 - 03/16/2021 [facility] 44.5 % 10:08 AM LOG CARRIER OPERATOR LABORATORY MCV 97.1 80.0 - 03/16/2021 [facility] 100.0 fL 10:08 AM LOG CARRIER OPERATOR LABORATORY MCH 31.6 27.6 - 03/16/2021 [facility] 33.3 pg 10:08 AM LOG CARRIER OPERATOR LABORATORY MCHC 32.5 31.5 - 03/16/2021 [facility] 35.2 g/dL 10:08 AM LOG CARRIER OPERATOR LABORATORY RDW 13.5 11.9 - 03/16/2021 [facility] 15.5 % 10:08 AM LOG CARRIER OPERATOR LABORATORY Platelets 179 150 - 450 03/16/2021 [facility] x10(9)/L 10:08 AM LOG CARRIER OPERATOR LABORATORY Automated NRBC 0 <=0 /100 03/16/2021 [facility] WBC 10:08 AM LOG CARRIER OPERATOR LABORATORY Neutrophil 3.1 1.7 - 7.0 03/16/2021 [facility] Absolute 10(9)/L 10:08 AM LOG CARRIER OPERATOR LABORATORY Lymphocyte 1.3 1.0 - 4.8 03/16/2021 [facility] Absolute 10(9)/L 10:08 AM LOG CARRIER OPERATOR LABORATORY Monocytes 0.3 0.2 - 0.9 03/16/2021 [facility] Absolute 10(9)/L 10:08 AM LOG CARRIER OPERATOR LABORATORY Eosinophil 0.0 0.0 - 0.5 03/16/2021 [facility] Absolute 10(9)/L 10:08 AM LOG CARRIER OPERATOR LABORATORY Basophil 0.0 0.0 - 0.3 03/16/2021 [facility] Absolute 10(9)/L 10:08 AM LOG CARRIER OPERATOR LABORATORY Immature Gran % 0.2 0.0 - 0.5 03/16/2021 [facility] % 10:08 AM LOG CARRIER OPERATOR LABORATORY Specimen Anatomical Collection Method / Collection Time Recei leoncio Time (Source) Location / Volume Laterality Blood Venipuncture / 03/16/2021 9:52 03/16/2021 Unknown AM LOG CARRIER OPERATOR 10:02 AM LOG CARRIER OPERATOR Gina Tierney MD LAB_1 Performing Organization Address City/[facility] Phon e Number [facility] [address] [place] [address] APTT (ACTIVATED PARTIAL THROMBOPLASTIN TIME (03/16/2021 9:52 AM LOG CARRIER OPERATOR) athologist Signature APTT 26.4 22.5 - 36.5 03/16/2021 [facility] Seconds 10:20 AM LOG CARRIER OPERATOR LABORATORY Specimen Anatomical Collection Method / Collection Time Recei leoncio Time (Source) Location / Volume Laterality Blood Venipuncture / 03/16/2021 9:52 03/16/2021 Unknown AM LOG CARRIER OPERATOR 10:02 AM LOG CARRIER OPERATOR Gina Tierney MD LAB_1 Performing Organization Address City/[facility] Phon e Number [facility] [address] [place] [address] INR/PROTIME (03/16/2021 9:52 AM LOG CARRIER OPERATOR) P athologist Signature Protime 13.0 11.8 - 14.6 03/16/2021 [facility] Seconds 10:20 AM LOG CARRIER OPERATOR LABORATORY INR 1.0 0.9 - 1.1 03/16/2021 [facility] 10:20 AM LOG CARRIER OPERATOR LABORATORY Specimen Anatomical Collection Method / Collection Time Recei leoncio Time (Source) Location / Volume Laterality Blood Venipuncture / 03/16/2021 9:52 03/16/2021 Unknown AM LOG CARRIER OPERATOR 10:02 AM LOG CARRIER OPERATOR Narrative [facility] - 03/16/2021 10:20 AM LOG CARRIER OPERATOR Therapeutic range determined by protocol established by anticoagulation provider. Gina Tierney MD LAB_1 Performing Organization Address City/[facility] Phon e Number [facility] [address] [place] [address] (ABNORMAL) Basic Metabolic Panel (03/16/2021 9:52 AM LOG CARRIER OPERATOR) Analysis Performed At Patho logist Time Signature Sodium 143 136 - 145 03/16/2021 [facility] mmol/L 10:29 AM LOG CARRIER OPERATOR LABORATORY Potassium 3.9 3.5 - 5.1 03/16/2021 [facility] mmol/L 10:29 AM LOG CARRIER OPERATOR LABORATORY Chloride 116 (H) 98 - 109 03/16/2021 [facility] mmol/L 10:29 AM LOG CARRIER OPERATOR LABORATORY CO2 20 20 - 29 03/16/2021 [facility] mmol/L 10:29 AM LOG CARRIER OPERATOR LABORATORY Anion Gap 7 7 - 16 03/16/2021 [facility] mmol/L 10:29 AM LOG CARRIER OPERATOR LABORATORY Calcium 8.6 8.4 - 10.4 03/16/2021 [facility] mg/dL 10:29 AM LOG CARRIER OPERATOR LABORATORY BUN 14 7 - 26 03/16/2021 [facility] mg/dL 10:29 AM LOG CARRIER OPERATOR LABORATORY Creatinine 0.94 0.55 - 03/16/2021 [facility] 1.02 mg/dL 10:29 AM LOG CARRIER OPERATOR LABORATORY GFR, Estimated >60 >60 03/16/2021 [facility] mL/min/1.7 10:29 AM LOG CARRIER OPERATOR LABORATORY 3m2 Glucose 105 (H) 70 - 100 03/16/2021 [facility] mg/dL 10:29 AM LOG CARRIER OPERATOR LABORATORY Comment: The given reference range is fo r the fasting state. Non-fasting reference range for glucose is 70 - 180 mg/dL. Specimen Anatomical Collection Method / Collection Time Recei leoncio Time (Source) Location / Volume Laterality Blood Venipuncture / 03/16/2021 9:52 03/16/2021 Unknown AM LOG CARRIER OPERATOR 10:01 AM LOG CARRIER OPERATOR Gina Tierney MD LAB_1 Performing Organization Address City/[facility] Phon e Number [facility] [address] [place] [address] POCT urine - Surgery Use Only (03/16/2021 9:40 AM LOG CARRIER OPERATOR) [facility] gist Method Time Signature Urine Negative Negative POCT Test - POC Control Line Yes POCT Present, Clear Background - Internal control Cartridge Lot# [id number] POCT Specimen (Source) Anatomical Collection Method Collection Time Re ceived Time Location / / Volume Laterality Urine 03/16/2021 9:40 AM LOG CARRIER OPERATOR Gina Tierney MD ET POINT OF CARE [...] acetaminophen (TYLENOL) tablet Given 03/21/2021 1:28 PM LOG CARRIER OPERATOR 1,00 0 mg 1,000 mg 1,000 mg, Oral, Q6H (NON-STND), First dose on Fri03/17/21 at 0200, Until Discontinued Given 03/21/2021 7:48 AM LOG CARRIER OPERATOR 1,000 mg Given 03/20/2021 8:16 PM LOG CARRIER OPERATOR 1,000 mg acetaminophen (TYLENOL) tablet 1,000 mg Given 03/16/2021 7:23 PM LOG CARRIER OPERATOR 1,000 mg 1,000 mg, Oral, ONCE, On Fri03/16/21 at 1930, For 1 dose, Indications: Pain, PACU (only) bolus epidural with existing solution (for PACU Given 03/16/2021 7:19 PM LOG CARRIER OPERATOR 4 mL ONLY) 4 mL 4 mL, Epidural, ONCE, On Fri03/16/21 at 1945, For 1 dose, PACU/Recovery ceFAZolin (aka ANCEF) 2 g in dextrose Started 03/17/2021 5:55 AM LOG CARRIER OPERATOR 2 g 200 mL/hr 100 ml IVPB 2 g, Intravenous, Administer over 30 Minutes, Q8H (NON-STND), First dose on Fri03/16/21 at 2200, For 2 doses, Post-op Started 03/16/2021 9:55 PM LOG CARRIER OPERATOR 2 g 200 mL/hr dextrose (D50) injection [...] capsule 25 mg Given 03/19/2021 1:36 PM LOG CARRIER OPERATOR 25 mg 25 mg, Oral, Q4H PRN, Itching, if able to take oral medications, Starting on Fri03/16/21 at 2010, Until Fri03/21/21 at 1620, Give if nalbuphine (NUBAIN) not effective and if able to take oral medications., Post-op Given 03/17/2021 12:23 PM LOG CARRIER OPERATOR 25 mg diphenhydrAMINE (BENADRYL) injection 25 mg 25 mg, Intravenous, Q4H PRN, Itching, if unable to take oral medications, Starting on Fri03/16/21 at 2010, Until Fri03/21/21 at 1620, Give if nalbuphine (NUBAIN) not effective and if unable to take oral medications., Pos t-op fentaNYL (SUBLIMAZE) injection 50-100 mc g Given 03/16/2021 10:45 AM LOG CARRIER OPERATOR 50 mcg 50-100 mcg, Intravenous, [id number], Pain, Sedation, Procedure, Starting on Fri03/16/21 at 1006, Until Fri03/16/21 at 2007, For 2 doses, As directed by anesthesiologist, Pre-op fentaNYL citrate (PF) Rate/Dose Verify 03/21/2021 6:02 AM LOG CARRIER OPERATOR 10 mL/hr (SUBLIMAZE) 5 mcg/mL, bupivacaine (PF) (SENSORCAINE) 0.125 % in sodium chloride 0.9 % 100 mL (PRESERVATIVE FREE) epidural CADD infusion Epidural, CONTINUOUS, Starting on Fri03/16/21 at 1530, Run epidural solution at 10 ml/hour per infusion pump Rate/Dose Verify 03/21/2021 3:20 AM LOG CARRIER OPERATOR 10 mL/hr Started 03/20/2021 10:47 PM LOG CARRIER OPERATOR 10 mL/hr FLUoxetine (PROZAC) capsule 10 mg Given 03/21/2021 7:48 AM LOG CARRIER OPERATOR 10 mg 10 mg, Oral, DAILY, First dose on 03/17/21 at 0800, Until Discontinued Given 03/20/2021 8:15 AM LOG CARRIER OPERATOR 10 mg Given 03/19/2021 8:58 AM LOG CARRIER OPERATOR 10 mg furosemide (LASIX) tablet 20 mg Given 03/21/2021 7:48 AM LOG CARRIER OPERATOR 20 mg 20 mg, Oral, DIURETIC - 0800/1700, First dose on Fri03/18/21 at 1000, Until Discontinued Given 03/20/2021 5:34 PM LOG CARRIER OPERATOR 20 mg Given 03/20/2021 8:15 AM LOG CARRIER OPERATOR 20 mg glucagon rDNA (diagnostic) (GLUCAGEN) in [...] (MUCINEX) extended release Given 03/21/2021 7:48 AM LOG CARRIER OPERATOR 1,200 mg tablet 1,200 mg 1,200 mg, Oral, BID, First dose on Fri03/16/21 at 2200, Until Discontinued, Tablet should be swallowed whole. Take with a full glass of water. Given 03/20/2021 8:05 PM LOG CARRIER OPERATOR 1,200 mg Given 03/20/2021 8:14 AM LOG CARRIER OPERATOR 1,200 mg hydrocortisone 2.5 % cream 1 Given 03/20/2021 10:59 PM LOG CARRIER OPERATOR 1 Alexandrea lication Back Application 1 Application, Topical, BID PRN, Rash, Itching, Starting on Fri03/16/21 at 2008, Apply topically to skin Hazardous waste disposal required. hydrOXYzine pamoate (VISTARIL) capsule 2 5 mg Given 03/21/2021 6:08 AM LOG CARRIER OPERATOR 25 mg 25 mg, Oral, Q6H PRN, Itching, Starting on Fri03/16/21 at 2008, Until Fri03/21/21 at 1620 Given 03/20/2021 10:57 PM LOG CARRIER OPERATOR 25 mg Given 03/19/2021 8:17 PM LOG CARRIER OPERATOR 25 mg ibuprofen (MOTRIN) tablet 400 mg Given 03/21/2021 11:35 AM LOG CARRIER OPERATOR 400 mg 400 mg, Oral, QID, First dose on Fri03/21/21 at 1200, Until Discontinued, Give with food or milk. ketorolac (TORADOL) injection 15 mg Given 03/20/2021 8:18 PM LOG CARRIER OPERATOR 15 mg 15 mg, Intravenous, Q6H PRN, Other, Mild Pain (pain score 1-4), Starting on Fri03/16/21 at 2008, Until Fri03/21/21 at 1105, For 5 days, Do not give both ibuprofen and ketorolac. May give ketorolac in addition to acetaminophen-codeine or oxycodone. Given 03/19/2021 9:02 AM LOG CARRIER OPERATOR 15 mg Given 03/18/2021 2:17 PM LOG CARRIER OPERATOR 15 mg lactated ringers infusion Started 03/16/2021 4:56 PM LOG CARRIER OPERATOR 25 mL/hr, Intravenous, CONTINUOUS, Starting on Fri03/16/21 at 0945, Administer on all preop surgery patients, ages 12 and older, unless specified differently in the Protocol for Preop Initiation of IV fluids Order Set., Pre-op Restarted 03/16/2021 1:47 PM LOG CARRIER OPERATOR Started 03/16/2021 10:08 AM LOG CARRIER OPERATOR 25 mL/hr 25 mL/hr lidocaine PF (XYLOCAINE) 1 % injection Given 03/16/2021 10:08 AM LOG CARRIER OPERATOR 0.3 mL 0.1-0.3 mL 0.1-0.3 mL, Intradermal, ONCE, On Fri03/16/21 at 0945, For 1 dose, Lidocaine to be used for IV starts unless patient refuses., Pre-op metoprolol succinate (TOPROL XL) extended Given 03/20/2021 8:05 PM LOG CARRIER OPERATOR 100 mg release tablet 100 mg 100 mg, Oral, DAILY, First dose on 03/17/21 at 2000, Until Discontinued, Tablet may be split in half, but not crushed. Given 03/19/2021 8:07 PM LOG CARRIER OPERATOR 100 mg Given 03/18/2021 8:16 PM LOG CARRIER OPERATOR 100 mg metoprolol succinate (TOPROL XL) extended Given 03/18/2021 8:41 AM LOG CARRIER OPERATOR 50 mg release tablet 50 mg 50 mg, Oral, DAILY, First dose on 03/17/21 at 0800, Until Discontinued, Tablet may be split in half, but not crushed. Given 03/17/2021 8:04 AM LOG CARRIER OPERATOR 50 mg midazolam (VERSED) injection 1-2 mg Given 03/16/2021 10:47 AM LOG CARRIER OPERATOR 1 mg 1-2 mg, Intravenous, [id number], Sedation, Anxiety, Procedure, Starting on Fri03/16/21 at 1006, Until Fri03/16/21 at 2007, As directed by anesthesiologist MAX Dose 2mg, Pre-op Given 03/16/2021 10:45 AM LOG CARRIER OPERATOR 1 mg NaCl 0.9%-KCl 20 mEq/liter Rate/Dose Change 03/19/2021 11:29 AM 10 mL/hr infusion LOG CARRIER OPERATOR Intravenous, at 10 mL/hr, CONTINUOUS, Starting on Fri03/16/21 at 2030, Post-op Rate/Dose Verify 03/19/2021 10:48 AM LOG CARRIER OPERATOR 75 mL/hr New Bag Started 03/19/2021 5:15 AM LOG CARRIER OPERATOR 75 mL/hr nalbuphine (NUBAIN) 1-2 mg in sodium chloride Given 03/19/19 3:31 AM LOG CARRIER OPERATOR 2 mg 0.9 % 1-2 mL syringe 1-2 mg, Intravenous, Q4H PRN, Itching, Starting on Fri03/16/21 at 2010, Notify pharmacy to compound and send dose when needed., Post-op Given 03/18/2021 8:14 PM LOG CARRIER OPERATOR 2 mg Given 03/18/2021 2:17 PM LOG CARRIER OPERATOR 2 mg naloxone (NARCAN) injection 0.08 mg [...] (ROXICODONE) immediate release Given 03/21/2021 11:35 AM LOG CARRIER OPERATOR 5 mg tablet 5 mg 5 mg, Oral, Q6H PRN, Pain, Severe Pain (pain score 8-10), Starting on Fri03/21/21 at 1105, Until Fri03/21/21 at 1620 sodium chloride 0.9% 0.9 % injection - ADS Given 03/17/2021 7:56 PM LOG CARRIER OPERATOR Override Pull Starting on 03/17/21 at 1948, Until 03/17/21 at 1956, For 1 dose, Ankit Jett: cabinet override sodium chloride 0.9% injection 10-60 mL Given 03/20/2021 8:17 PM LOG CARRIER OPERATOR 20 mL 10-60 mL, Intravenous, BID, First [...] - ADS Override Given 03/16/2021 10:00 PM LOG CARRIER OPERATOR Lips Pull Starting on Fri03/16/21 at 1930, For 1 dose, Jemima Beverly: cabinet override documented in this encounter Active and Recently Administered Medications Times are shown in LOG CARRIER OPERATOR. Scheduled Medication Order 03/19/2021 03/20/2021 03/21/2021 acetaminophen (TYLENOL) tablet 1,000 mg 0320 (Not Give n - Provider: Jan Broderick RN - Reason: Patient/family refused)0858 (Given - Provider: Emani Joe RN)1336 (Given - Provider: Emani Joe RN)2007 (Given - Provider: Syl Sibley) 218 (Not Given - Provider: JAYDEN BOLES - [...] in Manage Orders - Provider: Inpatient Template [facility]) 50 mg, Oral, DAILY, First dose on 1/ 29/22 at 0800, Until Discontinued, Tablet may be [...] per infusion pump 2247 (Started - Provider: JAYDEN GOLDMAN) NaCl 0.9%-KCl 20 mEq/liter infusion 0515 (New Bag Mohit atkins - Provider: Jan Broderick, RN)1048 (Rate/Dose Verify - Provider: Emani Joe, COLETTE)1129 (Rate/Dose Change - Provider: Emani Joe RN) [...] Group 2) 1336 (Given - Provider: Emani Joe RN) 25 [...] Sibley) 2256 (Given - Provider: JAYDEN BOLES) 0608 ( Given - Provider: JAYDEN BOLES) 25 mg, Oral, Q6H PRN, Itching, Starting on Fri03/16/21 at 2009, Until Fri03/21/21 at 1620 ketorolac (TORADOL) injection [...] additional info rmation about flushing processes, refere nde the Vascular Access Device Users Guide. Linked [...]
Post-op documented in this encounter Care Teams Psychological Operations Officer Relationship Specialty Start Date End Date David Choudhury MD PCP - General Family Practice 03/16/[address] [place] [address] documented as of this encounter
--- OUTSIDE RECORDS SUMMARY | 2021-11-26 15:06 | XMS_ITS | Encounter Summary ---
:1970 Author Organization [facility] Address [address] [place] [address] Care Team Providers Name Role Phone David Choudhury MD Primary Care Provider [phone] Reason for Referral Procedure/Equipment (Routine) - Incomplete Specialty Diagnoses / Procedures Referred By Contact Refer red To Contact Diagnoses Lung mass Greyson Ovalle MD Procedures XR Chest 2 Views [address] [place], [place] [address] Referral ID Status Reason Start Date Expiration Date Visits V isits Requested Authorized [id number] Incomplete 09/17/2021 12/17/2022 1 1 Reason for Visit Reason Comments Follow-up Encounter Details Date Type Department Care Team Description 09/17/2021 Office Visit Specialty Center [address] Greyson Ovalle, Lung mass (Primary Pulmonary Medicine MD Dx) [address] [facility] [address] [place] [address] [place], [place] [phone] (Wo rk) Social History Tobacco Use Types [...] at Date Recorded 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 documented as of this encounter Last Filed [...] 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
--- OUTSIDE RECORDS SUMMARY | 2021-11-26 15:06 | XMS_ITS | Encounter Summary ---
:1970 Author [facility] Address [address], [place] [address] Care Team Providers Name Role Phone David Choudhury MD Primary Care Provider [phone] Reason for Visit (Routine) - Incomplete Specialty Diagnoses / Procedures Referred By Contact Refer red To Contact Procedures Tommy Amador MD Anesthesia Guided Block [address] [place], [place] [address] Referral ID Status Reason Start Date Expiration Date Visits V isits Requested Authorized [id number] Incomplete 03/16/2021 06/15/2022 1 1 Encounter Details Date Type Department Care Team Description 03/16/2021 Ancillary Procedure Radiology P[facility] [address] [place] [address] Social History Tobacco Use Types Packs/Day Years [...] at Date Recorded 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 documented in this encounter Results US Anesthesia Guided Block (03/16/2021 10:06 AM AVIONICS SYSTEMS ENGINEER) Anatomical Region Laterality Modality Ultrasound Specimen (Source) Anatomical Location Collection Method / Collectio n Time Received Time / Laterality Volume Narrative 03/16/2021 10:06 AM AVIONICS SYSTEMS ENGINEER If an Anesthesia block was performed please see the Anesthesia encounter for documentation. ??This procedure was performed and interpreted by the performing provider. ?? Tommy Amador MD [facility] documented in this encounter Visit Diagnoses Not on filedocumented in this encounter Care Teams Paginator Relationship Specialty Start Date End Date David Choudhury MD PCP - General Family Practice 03/16/[address] [place] [address] [address] documented as of this encounter
--- OUTSIDE RECORDS SUMMARY | 2021-11-26 15:06 | XMS_ITS | Encounter Summary ---
:1970 Author Organization [facility] Address [address], [place] [address] Care Team Providers Name Role Phone David Choudhury MD Primary Care Provider [phone] Reason for Visit Procedure/Equipment (Routine) - Incomplete Specialty Diagnoses / Procedures Referred By Contact Refer red To Contact Diagnoses Malignant neoplasm of lower lobe of right lung (HRC) Pedro Hull MD Procedures XR Chest 1 View [address] [place], [place] [address] Referral ID Status Reason Start Date Expiration Date Visits V isits Requested Authorized [id number] Incomplete 04/02/2021 07/02/2022 1 1 Encounter Details Date Type Department Care Team Description 04/02/2021 Ancillary [facility] Pedro Hull, Maligna nt neoplasm Procedure X-Ray of lower lobe of [address] right lung (HRC) 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 documented as of this encounter Plan of Treatment Upcoming Encounters Date Type Specialty Care Team Description 01/02/2022 Appointment Radiology PN Kian Winters MBBS [address] [facility], [address] [address] (Wo rk) 01/04/2022 Appointment Oncology Kian Winters MBBS [address] [facility], [address] [address] (Wo rk) documented as of this encounter Procedures Procedure Name Priority Date/Time Associated Diagnosis Comme nts XR CHEST 1 VIEW Routine 04/02/2021 10:45 AM Malignant neoplasm of Results for this CLINICAL LEADER lower lobe of right procedur e are in lung (HRC) the results section. documented in this encounter Results XR Chest 1 View (04/02/2021 10:45 AM CLINICAL LEADER) Anatomical Region Laterality Modality Chest, Lung Digital Radiography Specimen (Source) Anatomical Collection Method Collection Time Re ceived Time Location / / Volume Laterality 04/02/2021 10:40 AM CLINICAL LEADER Impressions 04/02/2021 12:45 PM CLINICAL LEADER COMPARISON: ??03/20/2021. FINDINGS: ??One view was obtained. [...] (HRC) documented in this encounter Care Teams Campus Ambassador Relationship Specialty Start Date End Date David Choudhury MD PCP - General Family Practice 03/16/[address] [place] [address] documented as of this encounter
--- OUTSIDE RECORDS SUMMARY | 2021-11-26 15:06 | XMS_ITS | Encounter Summary ---
:1970 Author Organization [facility] Address [address], [place] [address] Care Team Providers Name Role Phone David Choudhury MD Primary Care Provider [phone] Encounter Details Date Type Department Care Team Description 03/21/2021 Orders Only [facility] 5E Oncology Med Nathaly Gonzalez PA-C Surg [address] 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 documented as of this encounter Plan of Treatment Upcoming Encounters Date Type Specialty Care Team Description 01/02/2022 Appointment Radiology PN Kian Winters, JUANCARLOS [address] [facility], [address] [address] (Wo rk) 01/04/2022 Appointment Oncology Kian Winters MBBS [address] [facility] [address] (Wo rk) documented as of this encounter Visit Diagnoses Not on filedocumented in this encounter Care Teams Casing Tester Relationship Specialty Start Date End Date David Choudhury MD PCP - General Family Practice 03/16/21 [address] [place] [address] documented as of this encounter
--- OUTSIDE RECORDS SUMMARY | 2021-11-26 15:06 | XMS_ITS | Encounter Summary ---
:1970 Author Organization [facility] Address [address] [address] Care Team Providers Name Role Phone David Choudhury MD Primary Care Provider [phone] Reason for Referral Procedure/Equipment (Routine) - Incomplete Specialty Diagnoses / Procedures Referred By Contact Refer red To Contact Diagnoses Diagnosis unknown Pedro Hull MD Procedures XR Portable Chest 1 View [address] [place], [place] [address] Referral ID Status Reason Start Date Expiration Date Visits V isits Requested Authorized [id number] Incomplete 03/16/2021 06/15/2022 1 1 L PIN MAN Reason for Visit Auth/Cert Specialty Diagnoses / Procedures Referred By Contact Refer red To Contact Diagnoses Malignant neoplasm of lower lobe of right lung (HRC) Procedures THORACOSCOPY/THORACOTOMY/LUNG RESECTION Referral ID Status Reason Start Date Expiration Date Visits Requ ested Visits Authorized [id number] 1 1 Encounter Details Date Type Department Care Team Description 03/16/2021 Hospital Encounter [facility] Radiology Pedro Hull, Diagnosis unknown [address] 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 documented in this encounter Results XR Portable Chest 1 View (03/16/2021 6:09 PM DOWEL PIN MAN) Anatomical Region Laterality Modality Chest, Lung Radiographic Imaging Specimen (Source) Anatomical Collection Method Collection Time Re ceived Time Location / / Volume Laterality 03/16/2021 5:45 PM DOWEL PIN MAN Impressions 03/16/2021 6:13 PM DOWEL PIN MAN COMPARISON: ??02/22/2021. FINDINGS: ??One view was obtained. [...] mortality documented in this encounter Care Teams Independent Living Instructor Relationship Specialty Start Date End Date David Choudhury MD PCP - General Family Practice 03/16/21 [address] [place] [id number] documented as of this encounter
--- OUTSIDE RECORDS SUMMARY | 2021-11-26 15:06 | XMS_ITS | Encounter Summary ---
:1970 Author Organization [facility] Address [address] [place] [address] Care Team Providers Name Role Phone David Choudhury MD Primary Care Provider [phone] Reason for Referral Procedure/Equipment (Routine) - Incomplete Specialty Diagnoses / Procedures Referred By Contact Refer red To Contact Diagnoses Malignant neoplasm of lower lobe of right lung (HRC) Kian Winters, JUANCARLOS Procedures CT Chest WO IV Cont 3931 [place], [place] [address] Referral ID Status Reason Start Date Expiration Date Visits V isits Requested Authorized [id number] Incomplete 04/17/2021 07/17/2022 1 1 MENDER Reason for Visit Reason Comments Follow-up Encounter Details Date Type Department Care Team Description 04/17/2021 [facility] Kian Winters, Malignant neoplasm Encounter [facility] JUANCARLOS of lower [facility] Oncology 3931 [place] right lung (HRC) [address] [facility] (Primary Dx) [place] [address] [phone] Social History Tobacco Use Types Packs/Day Years [...] at Date Recorded Female 02/21/2021 8:36 PM NET MENDER documented as of this encounter Medications at [...] episode previously. She was evaluated at the [facility] Emergency Room. She was noted to have [...] and has never smoked. Lives with in [place]. They have 3 children. 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 FAMILY HISTORY: Her father had developed [...] angiogram as discussed above. LABS: Reviewed in [facility]. From 03/16/2021 her creatinine was 0.94, WBC 4.8, hemoglobin 12.1, [id number], ANC 3.1 ASSESSMENT AND PLAN: This is [...] to document this note was 30 minutes. MENDER documented in this encounter Plan of Treatment Upcoming Encounters Date Type Specialty Care Team Description 01/02/2022 Appointment Radiology PN Kian Winters MBBS 3931 [facility] [address] (Opal osman) 01/04/2022 Appointment Oncology Kian Winters MBBS [address] [facility], [place] [address] (Opal osman) documented as of this encounter Results CT Chest [...] for recurrent/metastatic disease in the chest. Kian BAUER RAD CT documented in this encounter Visit Diagnoses Diagnosis Malignant neoplasm of lower lobe of righ t lung (HRC) - Primary Malignant neoplasm of lower lobe of righ t lung (HRC) documented in this encounter Care Teams Natural Resources Professor Relationship Specialty Start Date End Date David Choudhury MD PCP - General [facility] Practice 03/16/21 [address] [place] [address] documented as of this encounter
--- OUTSIDE RECORDS SUMMARY | 2021-11-26 15:06 | XMS_ITS | Encounter Summary ---
:1970 Author Organization [facility] Address [address], [place] [address] Care Team Providers Name Role Phone David Choudhury MD Primary Care Provider [phone] Reason for Visit Procedure/Equipment (Routine) - Incomplete Specialty Diagnoses / Procedures Referred By Contact Refer red To Contact Diagnoses Malignant neoplasm of lower lobe of right lung (HRC) Kian Winters, MBBS Procedures CT Chest WO IV Cont 3931 [place], [place] [address] Referral ID Status Reason Start Date Expiration Date Visits V isits Requested Authorized [id number] Incomplete 04/17/2021 07/17/2022 1 1 Encounter Details Date Type Department Care Team Description 06/29/[address] Scan Kian Winters, Malignant neoplasm Procedure [address] [place] MBBS of lower lobe of Drive 3931 [facility] right lung (HRC) [place], [place] S [address] [place], [place] [phone] [address] Social History Tobacco Use Types Packs/Day [...] at Date Recorded Female 02/21/2021 8:36 PM SCHOOL SOCIAL WORKER documented as of this encounter Plan of Treatment Upcoming Encounters Date Type Specialty Care Team Description 01/02/2022 Appointment Radiology PN Kian Winters MBBS 39[address] [facility], [place] [address] (Wo rk) 01/04/2022 Appointment Oncology Kian Winters MBBS [address] [facility], [place] [address] (Wo rk) documented as of this encounter [...] (HRC) documented in this encounter Care Teams Clinique Counter Manager Relationship Specialty Start Date End Date David Choudhury MD PCP - General [facility] Practice 03/16/21 [address] [address] documented as of this encounter
--- OUTSIDE RECORDS SUMMARY | 2021-11-26 15:06 | XMS_ITS | Encounter Summary ---
:1970 Author Organization [facility] Address [address], [place] [address] Care Team Providers Name Role Phone David Choudhury MD Primary Care Provider [phone] Reason for Referral Procedure/Equipment (Routine) - Incomplete Specialty Diagnoses / Procedures Referred By Contact Refer red To Contact Diagnoses Malignant neoplasm of lower lobe of right lung (HRC) Pedro Hull MD Procedures XR Chest [address] [place], [place] [address] Referral ID Status Reason Start Date Expiration Date Visits V isits Requested Authorized [id number] Incomplete 04/02/2021 07/02/2022 1 1 S REPRESENTATIVE FACILITY SERVICES Reason for Visit Reason Comments Post-Op Check Encounter Details Date Type Department Care Team Description 04/02/2021 Office Visit [facility] Pedro Hull, Malignant neoplasm Cardiothoracic Surge ry MD of lower lobe of [address] [facility]. [address] right lung (HRC) [place], [place] [address] (Primary Dx) [address] [place], [place] [phone] [address] Social History Tobacco Use Types Packs/Day Years [...] at Date Recorded Female 02/21/2021 8:36 PM SALES REPRESENTATIVE FACILITY SERVICES documented as of this encounter Last Filed Vital Signs Vital Sign Reading Time Taken Comments Blood Pressure 97/51 04/02/2021 11:18 AM SALES REPRESENTATIVE FACILITY SERVICES Pulse 63 04/02/2021 11:18 AM SALES REPRESENTATIVE FACILITY SERVICES Temperature - - Respiratory Rate - - Oxygen Saturation - - Inhaled Oxygen Concentration - - Weight 72.6 kg (160 lb) 04/02/2021 11:18 AM SALES REPRESENTATIVE FACILITY SERVICES Height 149.9 cm (4' 11) 04/02/2021 11:18 AM SALES REPRESENTATIVE FACILITY SERVICES Body Mass Index 32.32 04/02/2021 11:18 AM SALES REPRESENTATIVE FACILITY SERVICES documented in this encounter Patient Instructions Patient InstructionsAyse Malone LPN - 04/02/2021 11:30 AM CST Thank you for choosing Cardiothoracic Surgery at [facility]! For follow-up medical questions for the nurse, please call Yennifer at [phone]. For after hours emergencies, follow the instructions to be transferred to the public relations account executive provider. For appointments and scheduling, please call [phone]. For after business hours or weekend concerns needing immediate attention, please dial [phone] and the dry box operator will assist you. For questions regarding billing, please contact [facility] [employer] [facility] at [phone]. S REPRESENTATIVE FACILITY SERVICES documented in this encounter Progress Notes Pedro [...] any time for further questions or concerns. S REPRESENTATIVE FACILITY SERVICES documented in this encounter Plan of Treatment Upcoming Encounters Date Type Specialty Care Team Description 01/02/2022 Appointment Radiology PN Kian Winters MBBS 3931 [facility], [place] [address] (Wo rk) 01/04/2022 Appointment Oncology Kian Winters MBBS 39[address] [facility], [place] [address] (Wo rk) documented as of this encounter Results XR Chest 1 View (04/02/2021 10:45 AM SALES REPRESENTATIVE FACILITY SERVICES) Anatomical Region Laterality Modality Chest, Lung Digital Radiography Specimen (Source) Anatomical Collection Method Collection Time Re ceived Time Location / / Volume Laterality 04/02/2021 10:40 AM SALES REPRESENTATIVE FACILITY SERVICES Impressions 04/02/2021 12:45 PM SALES REPRESENTATIVE FACILITY SERVICES COMPARISON: ??03/20/2021. FINDINGS: ??One view was obtained. [...] (HRC) documented in this encounter Care Teams Repertoire Manager Relationship Specialty Start Date End Date David Choudhury MD PCP - General Family Practice 03/16/21 [address] [place] [address] documented as of this encounter
--- OUTSIDE RECORDS SUMMARY | 2021-11-26 15:06 | XMS_ITS | Encounter Summary ---
:1970 Author Organization [facility] Address [address] [place] [address] Care Team Providers Name Role Phone David Choudhury MD Primary Care Provider [phone] Reason for Visit Reason Comments COVID Questions COUGH Encounter Details Date Type Department Care Team Description 09/17/2021 Nurse Triage Careline Unassigned, COVID Questions; COUGH [address] Provider [place], [place] [address] [place] [address] [place] [address] Social History Tobacco Use Types Packs/Day Years [...] at Date Recorded Female 02/21/2021 8:36 PM VP BUSINESS DEVELOPMENT documented as of this encounter Nursing Notes Josy Mayen RN - 09/17/2021 7:40 AM CDT Emergent transfer from Careline Management Aide. Verified patient identity: Yes Situation/Background (brief explanation [...] symptoms. Protocols used: Coronavirus (COVID-19) Diagnosed or [id number] Plan: pt is en route to her [...] Appointment Radiology PN Kian Winters MBBS 3931 [facility], [place] [address] (Wo rk) 01/04/2022 Appointment Oncology Kian Winters MBBS [address] [facility], [place] [address] (Wo rk) documented as of this encounter Visit Diagnoses Not on filedocumented in this encounter Care Teams Restaurant Worker Relationship Specialty Start Date End Date David Choudhury MD PCP - General Family Practice 03/16/[address] [place] [address] documented as of this encounter
--- OUTSIDE RECORDS SUMMARY | 2021-11-26 15:06 | XMS_ITS | Clinical Summary ---
:1970 Author Organization [facility] Address [address] [place] [address] Care Team Providers Name Role Phone David Choudhury MD Primary Care Provider [phone] Source Comments You are receiving this [...] for each transition of care or referral. [employer] Allergies Active Allergy Reactions Severity Noted Date [...] automatically from request for maria g sood [id number] Impaired glucose tolerance test 03/07/2004 Overview: Glucose [...] at Date Recorded Female 02/21/2021 8:36 PM INSTRUCTIONAL CONSULTANT Last Filed Vital Signs Vital Sign Reading Time Taken Comments Blood Pressure 106/66 07/09/2021 1:32 PM CDT Pulse 82 09/17/2021 9:05 AM CDT Temperature 36.7 ??C (98.1 ??F) 07/09/2021 1:32 PM CDT Respiratory Rate 17 03/21/2021 9:59 AM INSTRUCTIONAL CONSULTANT Oxygen Saturation 98% 09/17/2021 9:05 AM CDT Inhaled Oxygen Concentration - - Weight 72.6 kg (160 lb) 09/17/2021 9:05 AM CDT Height 152.4 cm (5') 09/17/2021 9:05 AM CDT Body Mass Index 31.25 09/17/2021 9:05 AM CDT Plan of Treatment Upcoming Encounters Date Type Specialty Care Team Description 01/02/2022 Appointment Radiology PN Kian Winters MBBS [address] [facility] N [address] (Wo rk) 01/04/2022 Appointment Oncology Kian Winters MBBS [address] [facility] N [address] (Wo rk) Health Maintenance Due Date Last Done Comments [...] Plan / Subscriber ID Effective Phone Address [facility] Dates PREFERREDONE PREFERREDONE [id number] 2019-Pres [phone] OPEN ACCESS [facility] [phone] [place] [phone] (Home) [facility] [place] [address] Fifi José Personal/Famil Self 1970 [phone] y [address] (Home) [place] [address] FIFI JOSÉ Personal/Famil 1970 [phone] (Home) [place] [address] Abdoulaye José Personal/Famil Self 1970 [phone] (Home) [facility] [phone] [address] (Work) [address] FIFI JOSÉ Personal/Famil y Advance Directives Latest Code Status on File Code Status Date Activated Date Inactivated Comments Full Code 03/16/2021 8:09 PM 03/21/2021 4:25 PM Full code in effect for 30 days Care Teams Wrecking Car Driver Relationship Specialty Start Date End Date David Choudhury MD PCP - General Family Practice 03/16/21 [address] [place] [id number]
--- OUTSIDE RECORDS SUMMARY | 2021-11-26 15:06 | XMS_ITS | Encounter Summary ---
:1970 Author Organization [facility] Address [address], [place] [address] Care Team Providers Name Role Phone David Choudhury MD Primary Care Provider [phone] Reason for Visit Reason Comments Follow-up Encounter Details Date Type Department Care Team Description 09/13/2021 Telephone Specialty Center 3931 Stacia Ovalle MD Follow-up Pulmonary Medicine 3931 [facility] 39[address] [place] [address] [place], [place] [address] [phone] Social History Tobacco Use Types Packs/Day Years [...] at Date Recorded Female 02/21/2021 8:36 PM GOVERNMENT DOCUMENTS LIBRARIAN documented as of this encounter Nursing Notes [...] Appointment Radiology PN Kian Winters MBBS [address] [place] [facility] [place] [address] (Wo rk) 01/04/2022 Appointment Oncology Kian Winters MBBS [address] [place] [address] (Wo rk) documented as of this encounter Visit Diagnoses Not on filedocumented in this encounter Care Teams Epic Cupid Specialists Relationship Specialty Start Date End Date David Choudhury MD PCP - General Family Practice 03/16/21 [facility] [place] [address] documented as of this encounter
--- OUTSIDE RECORDS SUMMARY | 2021-11-26 15:06 | XMS_ITS | Encounter Summary ---
:1970 Author Organization [facility] Address [address] [place] [address] Care Team Providers Name Role Phone David Choudhury MD Primary Care Provider [phone] Reason for Referral Procedure/Equipment (Routine) - Incomplete Specialty Diagnoses / Procedures Referred By Contact Refer red To Contact Diagnoses Malignant neoplasm of lower lobe of right lung (HRC) Kian Winters, JUANCARLOS Procedures CT Chest WO IV Cont 3931 [place], [place] [address] Referral ID Status Reason Start Date Expiration Date Visits V isits Requested Authorized [id number] Incomplete 07/09/2021 10/08/2022 1 1 Reason for Visit Reason Comments Follow-up Encounter Details Date Type Department Care Team Description 07/09/2021 [facility] Kian Winters, Malignant neoplasm Encounter [facility] JUANCARLOS of lower [facility] Oncology 39[address] [place] right lung (HRC) 3931 [facility] (Primary Dx) [place] [phone] Social History Tobacco Use Types Packs/Day Years [...] Date Recorded Female 02/21/2021 8:36 PM SALES PLANNING MANAGER documented as of this encounter Last [...] Mass Index 32.32 04/02/2021 11:18 AM SALES PLANNING MANAGER documented in this encounter Medications at [...] previously. She was evaluated at the [facility] Emergency Room. 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 PAST HISTORY: 1. Migraines. 2. Ureteric stone, status post lithotripsy. 3. Appendectomy in December 2020. MEDICATIONS: Reviewed. SOCIAL HISTORY: Does not smoke and has never smoked. Lives with in [place]. They have 3 children. 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 FAMILY HISTORY: Her father had developed [...] is alert and oriented. LABS: Reviewed in [facility]. IMAGING: CT chest from 06/29/21: IMPRESSION: [...] 01/02/2022 Appointment Radiology PN Kian Winters MBBS [address] [place] [address] [address] (Wo rk) 01/04/2022 Appointment Oncology Kian Winters JUANCARLOS [place] [address] [place], [place] [address] [address] (Wo rk) Scheduled Orders Name Type Priority Associated Diagnoses Order S chedule CT Chest WO IV Cont Imaging New Routine Malignant neoplasm of Expected: 07/09/2021 lower lobe of right lung (Ap proximate), (HRC) Expires: 2022 documented as of this encounter Visit Diagnoses Diagnosis Malignant neoplasm of lower lobe of righ t lung (HRC) - Primary documented in this encounter Care Teams Fruit Inspector Relationship Specialty Start Date End Date David Choudhury MD PCP - General Family Practice 03/16/21 [address] [place] [address] documented as of this encounter
--- OUTSIDE RECORDS SUMMARY | 2021-11-26 15:06 | XMS_ITS | Encounter Summary ---
:1970 Author Organization [email or web address] Address [address], [place] [address] Care Team Providers Name Role Phone David Choudhury MD Primary Care Provider Reason for Visit Reason Comments QUESTIONS, GENERAL Encounter Details Date Type Department Care Team Description 04/11/2021 Telephone [facility] Carol Abebe QUESTIONS, GENERAL Vascular & Vein Clin ic [address] [facility] [place] [address] Social History Tobacco Use Types [...] at Date Recorded Female 02/21/2021 8:36 PM BEAD TRIMMER documented as of this encounter Nursing Notes Magui Abebe - 04/11/2021 11:43 AM CST Fifi Kasper would like a return to work letter which can be put in my chart for her to return to work on FridayApril 30. This would be the 6 week austen. Please let me know when this done and I will call patient to inform her. TRIMMER documented in this encounter Plan of Treatment Upcoming Encounters Date Type Specialty Care Team Description 01/02/2022 Appointment Radiology PN Kian Winters MBBS [address] [facility] [place] N [address] (Wo rk) 01/04/2022 Appointment Oncology Kian Winters MBBS [address] [facility] [place] [address] [address] (Wo rk) documented as of this encounter Visit Diagnoses Not on filedocumented in this encounter Care Teams Steam Train Driver Relationship Specialty Start Date End Date David Choudhury MD PCP - General Family Practice 03/16/[address] [place] [address] documented as of this encounter
--- OUTSIDE RECORDS SUMMARY | 2021-11-26 15:07 | XMS_ITS | Encounter Summary ---
:1970 Author Organization [email or web address] Address [address], [place] [address] Care Team Providers Name Role Phone Mariaelena Hardy MD Primary Care Provider Reason for Visit Reason Comments Other Encounter Details Date Type Department Care Team Description 03/23/2007 Telephone [facility] Mariaelena Juan MD Other [address] [place] [address] [place], [place] [address] (Wo rk) Social History Tobacco Use Types [...] at Date Recorded Female 02/21/2021 8:36 PM ARCHITECTURE INTERNSHIP documented as of this encounter Progress Notes Center, Message - 03/23/2007 9:37 AM CST Phone Note filed by Wuiper at 06/06/10 8320 Author: Message Center Service: (none) Author Type: (none) Filed: 06/06/10 1357 Note Time: 03/23/07 0937 Status: Signed Real Estate Legal Assistant: Message Frankewing Prescription Refill Please provide enough refills to last until patient's next visit. Comment:- Pharmacy Seq #:-[phone] Pharmacy Name:-[facility] Street or City:-[place] Clinician Name:-Domitila Hardy Drug Name/Strength:-Flexeril 10MG tab Sig: Dose/Route/Freq:-take one tab three times daily as needed Quantity & Last Fill:-30 06/02/06 Created on 23Mar2007 9:37am by ISRAEL VAZQUEZ On 23Mar2007 10:48am MARIAELENA HARDY wrote: Faxed. Acknowledged by MARIAELENA HARDY on 10:48am [employer] documented in this encounter Plan of Treatment Upcoming Encounters Date Type Specialty Care Team Description 01/02/2022 Appointment Radiology PN Kian Winters MBBS 39[address] [facility] [place] [address] (Wo rk) 01/04/2022 Appointment Oncology Kian Winters MBBS 39[address] [facility] [place] [address] (Wo rk) documented as of this encounter Visit Diagnoses Not on filedocumented in this encounter Care Teams Sales Order Clerk Relationship Specialty Start Date End Date Mariaelena Hardy MD PCP - General 05/22/10 03/15/21 [address] [place] [address] documented as of this encounter
--- OUTSIDE RECORDS SUMMARY | 2021-11-26 15:07 | XMS_ITS | Encounter Summary ---
:1970 Author Organization [facility] Address [address] [address] Care Team Providers Name Role Phone Theresa Hardy MD Primary Care Provider Reason for Referral Consult/Transfer Care (Routine) - New Request Specialty Diagnoses / Procedures Referred By Contact Refer red To Contact Diagnoses Lung mass Greyson Ovalle MD [address] [place], [place] [address] Referral ID Status Reason Start Date Expiration Date Visits V isits Requested Authorized [id number] New Request 02/26/2021 05/28/2022 1 1 Scheduling Instructions Your provider has recommended an appoint ment with [facility]. You may call [phone] [facility]. We suggest you call your health insurance company about your coverage and benefits for this appointment. INE SHOP LEAD MAN Procedure/Equipment (Routine) - Incomplete Specialty Diagnoses / Procedures Referred By Contact Refer red To Contact Diagnoses Greyson Ludwig MD Procedures NM PET/CT Skull Base To Mid Thigh [address] [place], [place] [address] Referral ID Status Reason Start Date Expiration Date Visits V isits Requested Authorized [id number] Incomplete 02/26/2021 05/28/2022 6 6 INE SHOP LEAD MAN Reason for Visit Reason Comments Follow-up Encounter Details Date Type Department Care Team Description 02/26/2021 Phone Visit Specialty Center 3931 Greyson Ovalle, Lung mass (Primary Pulmonary Medicine MD Dx) 3931 [facility] [address] [place] [address] [phone] (Wo rk) Social History Tobacco Use Types [...] Date Recorded Female 02/21/2021 8:36 PM MACHINE SHOP LEAD MAN documented as of this encounter Last Filed Vital Signs Vital Sign Reading Time Taken Comments Blood Pressure - - Pulse - - Temperature 36.8 ??C (98.2 ??F) 02/26/2021 11:08 AM patient reported MACHINE SHOP LEAD MAN Respiratory Rate - - Oxygen Saturation - - Inhaled Oxygen Concentration - - Weight 72.6 kg (160 lb) 02/26/2021 11:08 AM patient rep orted MACHINE SHOP LEAD MAN Height 152.4 cm (5') 02/26/2021 11:08 AM patient repo rted MACHINE SHOP LEAD MAN Body Mass Index 31.25 02/26/2021 11:08 AM MACHINE SHOP LEAD MAN documented in this encounter Progress Notes Greyson Ovalle MD - 02/26/2021 12:00 AM CST NAME: FIFI JOSÉ [facility]: [id number] CLINIC NOTE DATE OF SERVICE: 02/26/2021 : 1970 CHIEF CONCERN: Lung mass, status post biopsy. SUBJECTIVE: Fifi José is a very pleasant 50-year-old woman [...] well by phone. PATHOLOGY: Low-grade adenocarcinoma. ASSESSMENT/PLAN: Fifi José is a very pleasant 50-year-old woman with incidentally noted lung mass after a syncopal event, this in the context of a never smoker. Unfortunately, this has now been confirmed to be lung cancer, specifically adenocarcinoma. Fifi and I had a good conversation about [...] any time. TT: 30. MD JANICE MCCULLOUGH/CHERRY /[id number] INE SHOP LEAD MAN documented in this encounter Plan of Treatment Upcoming Encounters Date Type Specialty Care Team Description 01/02/2022 Appointment Radiology PN Kian Winters, JUANCARLOS [address] [place] [address] [address] (Wo rk) 01/04/2022 Appointment Oncology Kian Winters JUANCARLOS [address] [place] [place] [address] [address] (Opal osman) Scheduled Referrals Name Type Priority Associated Diagnoses Order S [facility] Oncology/Hematology Referral Routine Lung mass Ordered: 02/26/2021 Consult Adult documented as of this encounter Results NM PET/CT Skull Base To Mid Thigh (02/28/2021 3:54 PM MACHINE SHOP LEAD MAN) Anatomical Region Laterality Modality Nuclear Medicine Specimen (Source) Anatomical Collection Method Collection Time Re ceived Time Location / / Volume Laterality 02/28/2021 2:13 PM MACHINE SHOP LEAD MAN Impressions 02/28/2021 4:25 PM MACHINE SHOP LEAD MAN TECHNIQUE: Images were obtained from the skull [...] chest documented in this encounter Care Teams Line Construction Superintendent Relationship Specialty Start Date End Date Theresa Hardy MD PCP - General 05/22/10 03/15/21 [address] [place] [address] documented as of this encounter
--- OUTSIDE RECORDS SUMMARY | 2021-11-26 15:07 | XMS_ITS | Encounter Summary ---
:1970 [facility] Address [address] [address] Care Team Providers Name Role Phone Theresa Hardy MD Primary Care Provider Encounter Details Date Type Department Care Team Description 04/03/2007 PN Conversion Only MCKITTRICK CONVERSIO N [address] [place] [address] Social History Tobacco Use Types Packs/Day Years [...] at Date Recorded Female 02/21/2021 8:36 PM RECRUITMENT ADVERTISING MANAGER documented as of this encounter Plan of Treatment Upcoming Encounters Date Type Specialty Care Team Description 01/02/2022 Appointment Radiology PN Kian Winters MBBS 47[address] [facility] [place] LINO N [id number] (Opal osman) 01/04/2022 Appointment Oncology Kian Winters MBBS 3931 [facility] [place] N [address] (Opal osman) documented as of this encounter Visit Diagnoses Not on filedocumented in this encounter Care Teams Social Worker Delinquency Prevention Relationship Specialty Start Date End Date Theresa Hardy MD PCP - General 05/22/10 03/15/21 [address] [place] TIRSO Conklin [address] documented as of this encounter
--- OUTSIDE RECORDS SUMMARY | 2021-11-26 15:07 | XMS_ITS | Encounter Summary ---
:1970 [facility] Address [address] [address] Care Team Providers Name Role Phone Theresa Hardy MD Primary Care Provider Reason for Visit Reason Comments Other Encounter Details Date Type Department Care Team Description 01/14/2007 Telephone [facility], Message Other [address] [place] [address] Social History Tobacco Use Types [...] at Date Recorded Female 02/21/2021 8:36 PM RENTAL CLERK TOOL AND EQUIPMENT documented as of this encounter Progress Notes Center, Message - 01/14/2007 8:36 AM CST Phone Note filed by [employer] at 06/06/10932 Author: [employer] Service: (none) Author Type: (none) Filed: 06/06/10932 Note Time: 01/14/07835 Status: Signed Assembler Surgical Garment: [employer] Prescription Refill Please provide enough refills to last until patient's next visit. Comment:-Appt Apr 06 Pharmacy Seq #:-[phone] Pharmacy Name:-[facility] Street or City:-[place] Clinician Name:-Domitila Hardy Drug Name/Strength:-Imitrex 50mg tab Sig: Dose/Route/Freq:-take one tab as needed Quantity & Last Fill:-50 03/04/06 Created on 14Jan2007 8:36am by ISRAEL VAZQUEZ On 14Jan2007 2:48pm LINDSEY HELM wrote: Renewed medication per medication refill protocol. AL CLERK TOOL AND EQUIPMENT documented in this encounter Plan of Treatment Upcoming Encounters Date Type Specialty Care Team Description 01/02/2022 Appointment Radiology PN Kian Winters, JUANCARLOS [address] [place] [facility] [place] N [address] (Wo rk) 01/04/2022 Appointment Oncology Kian Winters MBBS [address] [place] [facility] [place] N [address] (Wo rk) documented as of this encounter Visit Diagnoses Not on filedocumented in this encounter Care Teams Health And Safety Tech Relationship Specialty Start Date End Date Theresa Hardy MD PCP - General 05/22/10 03/15/21 [address] [place] TIR[place] Conklin [address] documented as of this encounter
--- OUTSIDE RECORDS SUMMARY | 2021-11-26 15:07 | XMS_ITS | Encounter Summary ---
:1970 Author Organization [facility] Address [address], [place] [address] Care Team Providers Name Role Phone Theresa Hardy MD Primary Care Provider Reason for Referral Consult/Transfer Care (Routine) - New Request Specialty Diagnoses / Procedures Referred By Contact Refer red To Contact Diagnoses Malignant neoplasm of lower lobe of right lung (HRC) Kian Winters MBBS [address] [place], [place] [address] Referral ID Status Reason Start Date Expiration Date Visits V isits Requested Authorized [id number] New Request 03/01/2021 05/31/2022 1 1 Scheduling Instructions Your provider has recommended an appoint ment with [facility]. You may call [phone] to schedule your appoi ntment. We suggest you call your health insurance company about your coverage an d benefits for this appointment. NE SERVICE OPERATOR Reason for Visit Reason Comments CONSULT Consult/Transfer Care (Routine) - New Request Specialty Diagnoses / Procedures Referred By Contact Refer red To Contact Diagnoses Lung mass Darien Helms MD [address] [place], [place] [address] Referral ID Status Reason Start Date Expiration Date Visits V isits Requested Authorized [id number] New Request 02/26/2021 05/28/2022 1 1 Encounter Details Date Type Department Care Team Description 03/01/2021 [facility] Kian Winters D, Malignant neoplasm Encounter [facility] of lower lobe of [place] [facility] [address] [place] right lung (HRC) [address] (Primary Dx) [place] [address] [phone] Social History Tobacco Use Types Packs/Day Years [...] at Date Recorded Female 02/21/2021 8:36 PM MARINE SERVICE OPERATOR documented as of this encounter Last Filed Vital Signs Vital Sign Reading Time Taken Comments Blood Pressure 116/74 03/01/2021 12:59 PM MARINE SERVICE OPERATOR Pulse 56 03/01/2021 12:59 PM MARINE SERVICE OPERATOR Temperature - - Respiratory Rate - - Oxygen Saturation - - Inhaled Oxygen Concentration - - Weight 73.5 kg (162 lb) 03/01/2021 12:59 PM MARINE SERVICE OPERATOR Height 152 cm (4' 11.84) 03/01/2021 12:59 PM MARINE SERVICE OPERATOR Body Mass Index 31.8 03/01/2021 12:59 PM MARINE SERVICE OPERATOR documented in this encounter Medications at [...] 03/01/2021 1:00 PM CST Consult note dictated NE SERVICE OPERATOR Kian Winters MBBS - 03/01/2021 12:00 AM CST NAME: FIFI JOSÉ CSN: [id number] HEMATOLOGY ONCOLOGY CONSULTATION NOTE DATE OF VISIT: 03/01/2021 : 1970 REASON FOR CONSULTATION: Adenocarcinoma of the right lung, clinical stage T1c N0 M0, 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 HISTORY OF PRESENTING ILLNESS: Ms. Fifi José is a pleasant 50-year-old female with [...] episode previously. She was evaluated at the [facility] Emergency Room.She was noted to have an [...] and has never smoked. Lives with in [place]. They have 3 children. 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 FAMILY HISTORY: Her father had developed non-Hodgkin [...] I suspect that she probably has a taxi cab driver mutation, possibly an EGFR mutation. For early stage lung cancers, in asymptomatic patients, we typically do not perform MRI scans of the brain, this would be in accordance with the NCCN guidelines, and I do not believe she needs to have brain imaging performed as she has no GENERAL MAINTENANCE MECHANIC symptoms. In terms of management, I did [...] length, extensive counseling was provided. JUANCARLOS DOWLING/CHERRY /[id number] cc: DARIEN HELMS MD [address] [place] [address] NE SERVICE OPERATOR documented in this encounter Plan of Treatment Upcoming Encounters Date Type Specialty Care Team Description 01/02/2022 Appointment Radiology PN Kian Winters MBBS 3931 [facility] [place], N [address] (Wo rk) 01/04/2022 Appointment Oncology Kian Winters MBBS 3931 [facility] [place], [place] N [address] (Wo rk) Scheduled Referrals Name Type Priority Associated Diagnoses Order S chedule Cardiovascular Surgery Referral Routine Malignant neoplasm of Ordered: 03/01/2021 Consult-Adults lower lobe of right lung (HRC) documented as of this encounter Visit Diagnoses Diagnosis Malignant neoplasm of lower lobe of righ t lung (HRC) - Primary documented in this encounter Care Teams Junior Software Engineer Relationship Specialty Start Date End Date Theresa Hardy MD PCP - General 05/22/10 03/15/21 [address] [place] TIRSO Conklin [address] documented as of this encounter
--- OUTSIDE RECORDS SUMMARY | 2021-11-26 15:07 | XMS_ITS | Encounter Summary ---
:1970 Author Organization [facility] Address [address] [place] [address] Care Team Providers Name Role Phone Theresa Hardy MD Primary Care Provider Reason for Referral Procedure/Equipment (Routine) - Incomplete Specialty Diagnoses / Procedures Referred By Contact Refer red To Contact Diagnoses Lung mass Xochitl Fuentes MD Procedures CT Bx Lung Automatic Developer [address] [facility] [address] [place], [place] [address] Referral ID Status Reason Start Date Expiration Date Visits V isits Requested Authorized [id number] Incomplete 02/15/2021 05/17/2022 1 1 FACTURERS SERVICE REPRESENTATIVE Reason for Visit Reason Comments CONSULT Encounter Details Date Type Department Care Team Description 02/15/2021 Office Visit Specialty Center 39[address] [place] Ovalle, Lung mass (Primary Pulmonary Medicine MD Dx) 3931 [facility] [address] [place], [place] S [address] [place], [place] [phone] [address] (Wo rk) Social History Tobacco Use Types [...] at Date Recorded Female 02/21/2021 8:36 PM MANUFACTURERS SERVICE REPRESENTATIVE documented as of this encounter Last Filed Vital Signs Vital Sign Reading Time Taken Comments Blood Pressure - - Pulse 71 02/15/2021 9:02 AM MANUFACTURERS SERVICE REPRESENTATIVE Temperature - - Respiratory Rate - - Oxygen Saturation 98% 02/15/2021 9:02 AM MANUFACTURERS SERVICE REPRESENTATIVE Inhaled Oxygen Concentration - - Weight 75 kg (165 lb 6.4 oz) 02/15/2021 9:02 AM MANUFACTURERS SERVICE REPRESENTATIVE Height 152.4 cm (5') 02/15/2021 9:02 AM MANUFACTURERS SERVICE REPRESENTATIVE Body Mass Index 32.3 02/15/2021 9:02 AM MANUFACTURERS SERVICE REPRESENTATIVE documented in this encounter Patient Instructions Patient [...] call with any new questions or concerns FACTURERS SERVICE REPRESENTATIVE documented in this encounter Progress Notes Kerri Lares RN - 02/15/2021 9:00 AM MANUFACTURERS SERVICE REPRESENTATIVE Addended by: KERRI LARES on: 02/15/2021 10:43 AM Modules accepted: Orders, SmartSet FACTURERS SERVICE REPRESENTATIVE Greyson Ovalle MD - 02/15/2021 9:00 AM [...] is a never-smoker. She is originally from [place]; [place] about 2003[place] 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 No known family history of lung disease. [...] (58.1 kg) SpO2 99% BMI 25.64 kg/m?? @[email or web address]@ General appearance: alert, cooperative, no distress, appears [...] Ovalle MD Pulmonary, Critical Care TT 60 FACTURERS SERVICE REPRESENTATIVE documented in this encounter Plan of Treatment Upcoming Encounters Date Type Specialty Care Team Description 01/02/2022 Appointment Radiology PN Kian Winters MBBS 3931 [facility], N [address] (Wo rk) 01/04/2022 Appointment Oncology Kian Winters MBBS 39[address] [facility], N [address] (Wo rk) documented as of this encounter Results CT Bx Lung Automatic Developer (02/22/2021 1:14 PM MANUFACTURERS SERVICE REPRESENTATIVE) Anatomical Region Laterality Modality Chest, Lung, Guided Computed Tomography Specimen (Source) Anatomical Location Collection Method / Collectio n Time Received Time / Laterality Volume Narrative 02/22/2021 1:18 PM MANUFACTURERS SERVICE REPRESENTATIVE These images were obtained during a surg ical procedure. Xochitl Fuentes MD RAD CT documented in this encounter Visit Diagnoses Diagnosis Lung mass - Primary Swelling, mass, or lump in chest documented in this encounter Care Teams Broommaker Relationship Specialty Start Date End Date Theresa Hardy MD PCP - General 05/22/10 03/15/21 [address] [place] TIR[place] Conklin [address] documented as of this encounter
--- OUTSIDE RECORDS SUMMARY | 2021-11-26 15:07 | XMS_ITS | Encounter Summary ---
:1970 [facility] Address [address], [place] [address] Care Team Providers Name Role Phone Theresa Hardy MD Primary Care Provider Encounter Details Date Type Department Care Team Description 10/20/2008 Nursing Visit [facility] Javier Suarez MD [facility] [address] [address] [address] [place] [address] (Wo rk) Social History Tobacco [...] at Date Recorded Female 02/21/2021 8:36 PM YARD SUPERVISOR documented as of this encounter Plan of Treatment Upcoming Encounters Date Type Specialty Care Team Description 01/02/2022 Appointment Radiology PN Kian Winters, ENRIQUEBS 1161 [facility] N [address] (Wo rk) 01/04/2022 Appointment Oncology Kian Winters, JUANCARLOS 2617 [facility], N 361346 (Wo rk) documented as of this encounter Visit Diagnoses Not on filedocumented in this encounter Care Teams Core Dropper Relationship Specialty Start Date End Date Theresa Hardy MD PCP - General 05/22/10 03/15/21 [address] [place] TIRSO Conklin [id number] documented as of this encounter
--- OUTSIDE RECORDS SUMMARY | 2021-11-26 15:07 | XMS_ITS | Encounter Summary ---
:1970 [facility] Address [address] [address] Care Team Providers Name Role Phone Theresa Hardy MD Primary Care Provider Reason for Visit Reason Comments Dental Conversion Legacy EDR to [place] convers ion Encounter Details Date Type Department Care Team Description 07/25/2016 Dental Conversion [place] [facility] Grant Beatty , [facility] DDS [address] [facility] [address] [place] [address] [address] [place], [place] [phone] Social History Tobacco Use Types Packs/Day Years [...] at Date Recorded Female 02/21/2021 8:36 PM MAIL INSERTER documented as of this encounter Miscellaneous Notes Miscellaneous - Interface, In Edr Dental Conversion - 07/24/2006 12:00 AM CDT 07/24/2006: Films Scanned: 4bw and horowitz 05-30-04 documented in this encounter Plan of Treatment Upcoming Encounters Date Type Specialty Care Team Description 01/02/2022 Appointment Radiology PN Kian Winters, JUANCARLOS 3931 [facility], N [address] (Wo rk) 01/04/2022 Appointment Oncology Kian Winters MBBS 39[address] [facility], N [address] (Wo rk) documented as of this encounter Visit Diagnoses Not on filedocumented in this encounter Care Teams Associate Professor Of History Relationship Specialty Start Date End Date Theresa Hardy MD PCP - General 05/22/10 03/15/21 [address] [place] TIRSO Conklin [id number] documented as of this encounter
--- OUTSIDE RECORDS SUMMARY | 2021-11-26 15:07 | XMS_ITS | Encounter Summary ---
:1970 [facility] Address [address] [place] [address] Care Team Providers Name Role Phone Theresa Hardy MD Primary Care Provider Encounter Details Date Type Department Care Team Description 11/11/2009 Nursing Visit [facility] Tommy Del Castillo MD [address] [place] [address] Social History Tobacco Use Types [...] Date Recorded Female 02/21/2021 8:36 PM NURSING PROGRAM CHAIR documented as of this encounter Plan of Treatment Upcoming Encounters Date Type Specialty Care Team Description 01/02/2022 Appointment Radiology PN Kian Winters MBBS 3931 [facility] [place] N [address] (Wo rk) 01/04/2022 Appointment Oncology Kian Winters MBBS 3931 [facility] [place] N [address] (Wo rk) documented as of this encounter Visit Diagnoses Not on filedocumented in this encounter Care Teams Security Program Manager Relationship Specialty Start Date End Date Theresa Hardy MD PCP - General 05/22/10 03/15/21 [address] [place] T[place] Conklin [phone] documented as of this encounter
--- OUTSIDE RECORDS SUMMARY | 2021-11-26 15:07 | XMS_ITS | Encounter Summary ---
:1970 [facility] Address [address] [address] Care Team Providers Name Role Phone Theresa Hardy MD Primary Care Provider Reason for Visit Reason Comments Other Encounter Details Date Type Department Care Team Description 09/11/2006 Telephone [facility] Surinder De Paz PAOpalC Other [address] [place] [address] [phone] (Wo rk) Social History Tobacco Use Types [...] at Date Recorded Female 02/21/2021 8:36 PM BIOMASS BOILER OPERATOR documented as of this encounter Progress Notes Center, Message - 09/11/2006 8:05 AM CDT Phone Note filed by [employer] at 06/06/10 0104 Author: Message Center Service: (none) Author Type: (none) Filed: 06/06/10 0104 Note Time: 09/11/06804 Status: Signed Insole Beveler: Message [place] Pt presents today to ask about CT results. Please call her with results when they are in [phone] Created on 11Sep2006 8:05am by HOSSEIN SU [...] know. Acknowledged by SURINDER HUA on 9:15am ASS BOILER OPERATOR documented in this encounter Plan of Treatment Upcoming Encounters Date Type Specialty Care Team Description 01/02/2022 Appointment Radiology PN Kian Winters MBBS 3931 [facility], N [address] (Wo rk) 01/04/2022 Appointment Oncology Kian Winters MBBS 39[address] [facility], N [address] (Wo rk) documented as of this encounter Visit Diagnoses Not on filedocumented in this encounter Care Teams Franchise Sales Representative Relationship Specialty Start Date End Date Theresa Hardy MD PCP - General 05/22/10 03/15/21 [address] [place] TIRSO Conklin [address] documented as of this encounter
--- OUTSIDE RECORDS SUMMARY | 2021-11-26 15:07 | XMS_ITS | Encounter Summary ---
:1970 [facility] Address [address] [address] Care Team Providers Name Role Phone Theresa Hardy MD Primary Care Provider Encounter Details Date Type Department Care Team Description 03/13/2021 Lab Visit [facility] Malignant neoplasm of lower [address] lobe of right lung (HRC) [place] [address] Social History Tobacco Use [...] at Date Recorded Female 02/21/2021 8:36 PM POTATO CHIP FRIER documented as of this encounter Plan of Treatment Upcoming Encounters Date Type Specialty Care Team Description 01/02/2022 Appointment Radiology PN Kian Winters D, MBBS [address] [place], [place] N [address]66 (Wo rk) 01/04/2022 Appointment Oncology Kian Winters, MBBS [address] [place], [place] N [address] (Wo rk) documented as of this encounter Procedures Procedure Name Priority Date/Time Associated Comments Diagnosis 2019 NOVEL Routine 03/13/2021 4:38 PM Malignant neoplasm Res ults for this CORONAVIRUS POTATO CHIP FRIER of lower lobe of procedure a re in right lung (HRC) the results section. documented in this encounter Results 2019 Novel Coronavirus (COVID-19) (03/13/2021 4:38 PM POTATO CHIP FRIER) [facility] Method Time Signature COVID-19 Not Not 03/14/2021 [facility] Interpretation Detected Detected 10:12 AM [facility] POTATO CHIP FRIER Source Nares, left 03/14/2021 [facility] and right 10:12 AM CENTRAL LAB POTATO CHIP FRIER Specimen Anatomical Collection Method Collection Time Receive d Time (Source) Location / / Volume Laterality Swab (Source ENTIRE ANTERIOR Non-blood 03/13/2021 4:38 PM 2021 4:38 Required) NARIS / Unknown Collection / POTATO CHIP FRIER PM POTATO CHIP FRIER Unknown Narrative [facility] - 03/14/2021 10:12 AM POTATO CHIP FRIER Tested by Polymerase Chain Reaction (PCR ), Ingot Car Operator-mediated amplification (TMA), or another nucleic acid amplifica tion test (NAAT). Pedro Hull MD LAB_1 Performing Organization Address City/State/ZIP Code Phon e Number [facility] [address] [address] documented in this encounter Visit Diagnoses Diagnosis Malignant neoplasm of lower lobe of righ t lung (HRC) documented in this encounter Care Teams Aligner Relationship Specialty Start Date End Date Theresa Hardy MD PCP - General 05/22/10 03/15/21 [address] [place] TIRSO Conklin [address] documented as of this encounter
--- OUTSIDE RECORDS SUMMARY | 2021-11-26 15:07 | XMS_ITS | Encounter Summary ---
:1970 Author Organization [facility] Address [address], [place] [address] Care Team Providers Name Role Phone David Choudhury MD Primary Care Provider [phone] Reason for Visit Auth/Cert Specialty Diagnoses / Procedures Referred By Contact Refer red To Contact Diagnoses Malignant neoplasm of lower lobe of right lung (HRC) Procedures THORACOSCOPY/THORACOTOMY/LUNG RESECTION Referral ID Status Reason Start Date Expiration Date Visits Requ ested Visits Authorized [id number] 1 1 Encounter Details Date Type Department Care Team Description 03/16/2021 Anesthesia Event Cheondoism Operating French Bravo MD [address] [place] [address] Rosalie Acevedo APRN, CRNA [address] [place] [address] [place] [address] Anesthesia Record Procedure Summary Procedure [...] Electr onically signed by Yoanna Garcia APRN, MASS COMMUNICATIONS PROFESSOR 182 An Stop Care transferred . Name [...] via Xi Amador MD Steiner, Ellen C, panel lay up worker documentation); T6-7; 19 G; Tolerated well; Met [...] Almquis t, Kathryn M, Time: 140; Placed STEEL MELTER, MASS COMMUNICATIONS PROFESSOR STEEL MELTER, MASS COMMUNICATIONS PROFESSOR By: MASS COMMUNICATIONS PROFESSOR; Induction Type: Pre-O2, IV; Masking: Easy; ETT [...] at Date Recorded Female 02/21/2021 8:36 PM CAFE MANAGER documented as of this encounter Miscellaneous Notes Anesthesia Postprocedure Evaluation - Pedro Bravo MD - 03/17/2021 12:44 AM CST [facility] Anesthesia Post-op Note Patient: Fifi Kasper Post-Op [...] by: Pedro Bravo MD 03/17/2021 12:44 AM MANAGER Anesthesia Procedure Notes - Xi Amador MD - 03/16/2021 11:53 AM CAFE MANAGER Associated Order(s): A-Line A-Line Performed by: Xi [...] Performed and signed by Xi Amador MD MANAGER Anesthesia Procedure Notes - Xi Amador MD - 03/16/2021 10:58 AM CAFE MANAGER Associated Order(s): Epidural Block Procedure: Epidural Block [...] using 3 mL of lidocaine 1.5% with 1:745486 of epinephrine (unless otherwise indicatedin Local anesthesia section of note) Performed and signed by Xi Amador MD Performed by: Xi Amador MD 03/16/2021 at 10:58 AM MANAGER Anesthesia Preprocedure Evaluation - Xi Amador MD - 03/16/2021 10:18 AM CAFE MANAGER [facility] Anesthesia Pre-op Evaluation Procedure: THORACOSCOPY/THORACOTOMY/LUNG RESECTION, Right [...] benefits and alternatives discussed with: Patient or Wood Crafter agree tothe anesthesia treatment plan. Additional equipment needed: Arterial line and Double lumen ETT The patient and/or their underwriting service representative were notified about the potential risks of damage to the lips, teeth, dental devices, mouth and airway. H&P Reviewed and Patient examined, no change observed IV access Antibiotics per surgery Electronically signed by: Xi Amador MD 03/16/2021 10:18 AM MANAGER documented in this encounter Plan of Treatment Upcoming Encounters Date Type Specialty Care Team Description 01/02/2022 Appointment Radiology PN Kian Winters MBBS [address] [facility], [place] [address] (Wo rk) 01/04/2022 Appointment Oncology Kian Winters MBBS [address] [facility], [place] [address] (Wo rk) documented as of this encounter Procedures Procedure Name Priority Date/Time Associated Diagnosis Comme nts A-LINE Routine 03/16/2021 11:53 AM Results for this CAFE MANAGER procedure are i n the results section . EPIDURAL BLOCK Routine 03/16/2021 10:58 AM Result s for this CAFE MANAGER procedure are i n the results section . documented in this encounter Results A-LINE (03/16/2021 11:53 AM CAFE MANAGER) Narrative EXTERNAL RESULTS - 03/16/2021 11:53 AM [...] EXTERNAL RESULTS EPIDURAL BLOCK (03/16/2021 10:58 AM CAFE MANAGER) Narrative EXTERNAL RESULTS - 03/16/2021 10:[address] Xi Amador MD ? 03/16/2021 10:59 AM Procedure: Epidural [...] 3 mL of lidocaine 1 .5% with 1:[id number] of epinephrine (unless otherwise indicated in Local [...] 0.25% PF (2.5 Started 03/16/2021 2:25 PM CAFE MANAGER 6 mL/hr 6 mL/hr mg/mL) (SENSORCAINE) 0.25 % injection Regional Nerve Block, Starting on Fri03/16/21 at 1421, Until Fri03/16/21 at 1824 Given 03/16/2021 2:21 PM CAFE MANAGER 5 mL ceFAZolin (aka ANCEF) 2 g in dextrose 100 ml Given 03/16/2021 2: 15 PM CAFE MANAGER 2 g IVPB 2 g, Intravenous, Administer over 30 Minutes, ONCE, On Fri03/16/21 at 1000, For 1 dose, Infuse within 60 minutes prior to incision. Re-dose 1 gram IV every 4 hours after initial dose until incision closed. Re-dose if more than 1.5 L of blood loss. Pharmacy may adjust for renal insufficiency., Pre-op dexamethasone (DECADRON) injection Given 03/16/2021 2:22 PM CAFE MANAGER 4 mg Intravenous, Starting on Fri03/16/21 at 1422, Until Fri03/16/21 at 1824 dexmedetomidine 20 mcg/5 mL injection Given 03/16/2021 5:51 PM CAFE MANAGER 4 mcg Intravenous, Starting on Fri03/16/21 at 1747, Until Fri03/16/21 at 1824 Given 03/16/2021 5:47 PM CAFE MANAGER 12 mcg ePHEDrine 10 mg/mL injection Given 03/16/2021 5:38 PM CAFE MANAGER 10 mg Intravenous, Starting on Fri03/16/21 at 1456, Until Fri03/16/21 at 1824 Given 03/16/2021 4:44 PM CAFE MANAGER 5 mg Given 03/16/2021 3:15 PM CAFE MANAGER 10 mg fentaNYL (SUBLIMAZE) injection Given 03/16/2021 1:59 PM CAFE MANAGER 50 mcg Intravenous, Starting on Fri03/16/21 at 1359, Until Fri03/16/21 at 1824 HYDROmorphone (DILAUDID) injection Given 03/16/2021 5:07 PM CAFE MANAGER 0.5 mg Intravenous, Starting on Fri03/16/21 at 1707, Until Fri03/16/21 at 1824 Given 03/16/2021 5:00 PM CAFE MANAGER 0.5 mg lactated ringers infusion Started 03/16/2021 4:56 PM CAFE MANAGER 25 mL/hr, Intravenous, CONTINUOUS, Starting on Fri03/16/21 at 0945, Administer on all preop surgery patients, ages 12 and older, unless specified differently in the Protocol for Preop Initiation of IV fluids Order Set., Pre-op Restarted 03/16/2021 1:47 PM CAFE MANAGER Started 03/16/2021 10:08 AM CAFE MANAGER 25 mL/hr 25 mL/hr lidocaine PF (XYLOCAINE) 1 % injection Given 03/16/2021 10:50 AM CAFE MANAGER 3 mL Subcutaneous, Starting on Fri03/16/21 at 1050 lidocaine PF (XYLOCAINE) 1 % injection Given 03/16/2021 11:38 AM CAFE MANAGER 1 mL Subcutaneous, Starting on Fri03/16/21 at 1138 lidocaine PF (XYLOCAINE) 1 % injection Given 03/16/2021 1:59 PM CAFE MANAGER 100 mg Intravenous, Starting on Fri03/16/21 at 1359 midazolam (VERSED) injection Given 03/16/2021 1:47 PM CAFE MANAGER 2 mg Intravenous, Starting on Fri03/16/21 at 1347, Until Fri03/16/21 at 1824 ondansetron (ZOFRAN) injection Given 03/16/2021 4:56 PM CAFE MANAGER 4 mg Intravenous, Starting on Fri03/16/21 at 1656, Until Fri03/16/21 at 1824 phenylephrine-NaCl 0.9% (DARWIN-SYNEPHRINE) Given 03/16/2021 5:34 P M CAFE MANAGER 100 mcg injection Intravenous, Starting on Fri03/16/21 at 1422, Until Fri03/16/21 at 1824 Given 03/16/2021 5:24 PM CAFE MANAGER 100 mcg Given 03/16/2021 5:18 PM CAFE MANAGER 100 mcg propofol (DIPRIVAN) 10 mg/mL injection Given 03/16/2021 1:59 PM CAFE MANAGER 150 mg Intravenous, Starting on Fri03/16/21 at 1359, Until Fri03/16/21 at 1824 rocuronium (ZEMURON) injection Given 03/16/2021 5:07 PM CAFE MANAGER 40 mg Intravenous, Starting on Fri03/16/21 at 1400, Until Fri03/16/21 at 1824 Given 03/16/2021 4:16 PM CAFE MANAGER 10 mg Given 03/16/2021 3:30 PM CAFE MANAGER 10 mg sugammadex (BRIDION) injection Given 03/16/2021 5:42 PM CAFE MANAGER 200 mg Intravenous, Starting on Fri03/16/21 at 1701, Until Fri03/16/21 at 1824 Given 03/16/2021 5:01 PM CAFE MANAGER 200 mg documented in this encounter Care Teams Boat Loader Relationship Specialty Start Date End Date David Choudhury MD PCP - General Family Practice 03/16/[address] [id number] documented as of this encounter
--- OUTSIDE RECORDS SUMMARY | 2021-11-26 15:07 | XMS_ITS | Encounter Summary ---
:1970 Author Organization [facility] Address [address] [address] Care Team Providers Name Role Phone Theresa Hardy MD Primary Care Provider Reason for Visit Reason Comments Procedure Encounter Details Date Type Department Care Team Description 02/15/2021 Telephone Specialty Center [address] Stacia Ovalle MD Procedure Pulmonary Medicine [address] [facility] [address] [place] [address] [place], [place] [address] [phone] Social History Tobacco Use Types Packs/Day Years [...] at Date Recorded Female 02/21/2021 8: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 The COVID test appt and PFT appt worked for her, so nothing was rescheduled. She will call next week if she has any questions prior to the biopsy. DCAST CHIEF ENGINEER Kerri Lu RN - 02/15/2021 11:13 AM [...] have to make so many trip to [place]. DCAST CHIEF ENGINEER documented in this encounter Plan of Treatment Upcoming Encounters Date Type Specialty Care Team Description 01/02/2022 Appointment Radiology PN Kian Winters MBBS [address] [place] [address] [facility], [address] [address] (Wo rk) 01/04/2022 Appointment Oncology Kian Winters MBBS [address] [place] [address] [facility] [place] [address] (Wo rk) documented as of this encounter Visit Diagnoses Not on filedocumented in this encounter Care Teams Employment Program Representative Relationship Specialty Start Date End Date Theresa Hardy MD PCP - General 05/22/10 03/15/21 [address] [place] [address] [address] documented as of this encounter
--- OUTSIDE RECORDS SUMMARY | 2021-11-26 15:07 | XMS_ITS | Encounter Summary ---
:1970 Author Organization [facility] Address [address], [place] [address] Care Team Providers Name Role Phone Theresa Hardy MD Primary Care Provider Reason for Referral Procedure/Equipment (Routine) - Incomplete Specialty Diagnoses / Procedures Referred By Contact Refer red To Contact Diagnoses Lung mass Greyson Ovalle MD Procedures NM PET/CT Skull Base To Mid Thigh [address] [place], [place] [address] Referral ID Status Reason Start Date Expiration Date Visits V isits Requested Authorized [id number] Incomplete 02/26/2021 05/28/2022 6 6 ATIONAL THERAPIST Reason for Visit Procedure/Equipment (Routine) - Incomplete Specialty Diagnoses / Procedures Referred By Contact Refer red To Contact Diagnoses Lung mass Greyson Ovalle MD Procedures NM PET/CT Skull Base To Mid Thigh [address] [place], [place] [address] Referral ID Status Reason Start Date Expiration Date Visits V isits Requested Authorized [id number] Incomplete 02/26/2021 05/28/2022 6 6 Encounter Details Date Type Department Care Team Description 02/28/2021 Hospital Encounter [facility] Greyson Garcia Lung mass Medicine [address] [place] [address] [phone] (Wo rk) Social History Tobacco Use Types [...] Date Recorded Female 02/21/2021 8:36 PM EDUCATIONAL THERAPIST documented as of this encounter Medications at [...] Appointment Radiology PN Kian Winters MBBS [address] [facility], [place] [address] (Opal osman) 01/04/2022 Appointment Oncology Kian Winters MBBS [address] [facility], [place] [address] (Opal osman) documented as of this encounter Procedures Procedure Name Priority Date/Time Associated Diagnosis Comme nts NM PET/CT SKULL Routine 02/28/2021 3:54 PM Lung mass Result s for this BASE TO MID THIGH EDUCATIONAL THERAPIST procedure are in the results section. GLUCOSE, WHOLE Routine 02/28/2021 2:25 PM Results for this BLOOD POCT EDUCATIONAL THERAPIST procedure are i n the results section. documented in this encounter Results NM PET/CT Skull Base To Mid Thigh (02/28/2021 3:54 PM EDUCATIONAL THERAPIST) Anatomical Region Laterality Modality Nuclear Medicine Specimen (Source) Anatomical Collection Method Collection Time Re ceived Time Location / / Volume Laterality 02/28/2021 2:13 PM EDUCATIONAL THERAPIST Impressions 02/28/2021 4:25 PM EDUCATIONAL THERAPIST TECHNIQUE: Images were obtained from the skull [...] Glucose, Whole Blood POCT (02/28/2021 2:25 PM EDUCATIONAL THERAPIST) [facility] Method Time Signature Glucose, Whole 82 70 - 180 02/28/2021 EP[facility]COP[facility] Blood mg/dL 2:26 PM EDUCATIONAL THERAPIST LABORATORY Performing MT NUC MED 02/28/2021 EPISCOPALIAN Location 2:26 PM EDUCATIONAL THERAPIST LABORATORY Specimen Anatomical Collection Method Collection Time Receive d Time (Source) Location / / Volume Laterality Blood 02/28/2021 2:25 PM 2 2:26 EDUCATIONAL THERAPIST PM EDUCATIONAL THERAPIST Greyson Ovalle MD LAB_1 Performing Organization Address City/State/ZIP Code Phon e Number [facility] [address] [place] [address] documented in this encounter Visit Diagnoses Diagnosis Lung mass Swelling, mass, or lump in chest documented in this encounter Administered Medications Inactive Administered Medications - up to 3 most recent administrations Medication Order MAR Action Action Date Dose Rate Site fluorine-18 Given 02/28/2021 2:30 10.48 millicuries fluorodeoxyglucose (F18) PM EDUCATIONAL THERAPIST injection 10.48 millicurie 10.48 millicurie, Intravenous, ONCE, On Fri02/28/21 at 1500, For 1 dose, Radiology sodium chloride 0.9% injection 20 mL Given 02/28/2021 2:30 PM EDUCATIONAL THERAPIST 20 mL 20 mL, Intravenous, ONCE, On Fri02/28/21 at 1500, For 1 dose, For line care., Radiology documented in this encounter Care Teams Director Web Relationship Specialty Start Date End Date Theresa Hardy MD PCP - General 05/22/10 03/15/21 [address] [place] [address] [place] [address] documented as of this encounter
--- OUTSIDE RECORDS SUMMARY | 2021-11-26 15:07 | XMS_ITS | Encounter Summary ---
:1970 Author Organization [facility] Address [address] [address] Care Team Providers Name Role Phone Theresa Hardy MD Primary Care Provider Reason for Visit Procedure/Equipment (Routine) - Incomplete Specialty Diagnoses / Procedures Referred By Contact Refer red To Contact Procedures Provider, Foreign Images Foreign Image(S) CT Chest [address] [place] [address] Referral ID Status Reason Start Date Expiration Date Visits V isits Requested Authorized [id number] Incomplete 02/13/2021 05/15/2022 1 1 Encounter Details Date Type Department Care Team Description 02/02/2021 Ancillary Procedure RC Radiology PACS Provider, Foreign [address] [place] [address] [address] [place] [address] Social History Tobacco Use Types Packs/Day Years [...] at Date Recorded Female 02/21/2021 8:36 PM ANALYTICS INTERN documented as of this encounter Plan of Treatment Upcoming Encounters Date Type Specialty Care Team Description 01/02/2022 Appointment Radiology PN Kian Winters, MBBS [address] [place] [address] (Wo rk) 01/04/2022 Appointment Oncology Kian Winters, ENRIQUEBS [address] [place] [address] (Wo rk) documented as of this encounter Procedures Procedure Name Priority Date/Time Associated Diagnosis Comme nts FOREIGN IMAGE(S) CT Routine 02/02/2021 8:55 AM Re sults for this CHEST ANALYTICS INTERN procedure are i n the results section. documented in this encounter Results Foreign Image(S) CT Chest (02/02/2021 8:55 AM ANALYTICS INTERN) Specimen (Source) Anatomical Location Collection Method / Collectio n Time Received Time / Laterality Volume Narrative POCT - 02/13/2021 8:54 AM ANALYTICS INTERN These outside images have been uploaded into PACS. If the results were provided, they will be located in the mark raymond's chart under the Media or Imaging tab. Foreign Images Provider RAD NON-REPORTABLES Performing Organization Address City/State/ZIP Code Phon e Number POCT documented in this encounter Visit Diagnoses Not on filedocumented in this encounter Care Teams Third Loader Relationship Specialty Start Date End Date Theresa Hardy MD PCP - General 05/22/10 03/15/21 [address] [place] [address] documented as of this encounter
--- OUTSIDE RECORDS SUMMARY | 2021-11-26 15:07 | XMS_ITS | Encounter Summary ---
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 documented as of this encounter Progress Notes Center, Message - 12/26/2006 11:04 AM CST Phone Note filed by Guidesly at 06/06/10820 Author: Message Center Service: (none) Author Type: (none) Filed: 06/06/10820 Note Time: 12/26/06 110 Status: Signed Outreach Associate: Message Center Medication Issue/Refill Caller Name/Relationship:Fifi Primary Classification And Treatment Director:Antony Comment/Symptom:pt under new insurance and now needs to use mail order requesting new script to be mailed to her home address Pharmacy Name & Phone #: Pharmacy Street or City: Drug Name: control lo-ovral Strength:28tabs Dose/Route/Freq:#3months Hall Coordinator:Fifi Best call back number:[phone] Is it OK to leave a confidential message on this voicemail?yes Created on 26Dec2006 11:04am by MISA POWELL On 29Dec2006 8:41am THERESA HARDY wrote: Rx printed and signed and in my outbox.Thanks Acknowledged by THERESA HARDY on 8:41am Acknowledged by PADMINI ISABEL on 8:51am On 29Dec2006 9:06am MELISSA SAN wrote: mailed to pt Acknowledged by MELISSA SAN on 9:06am SECURITY ENGINEER documented in this encounter Plan of Treatment Upcoming Encounters Date Type Specialty Care Team Description 01/02/2022 Appointment Radiology PN Kian Witners, JUANCARLOS [address] [facility] [place] [address] (Wo rk) 01/04/2022 Appointment Oncology Kian Winters MBBS [address] [facility] N [address] (Wo rk) documented as of this encounter Visit Diagnoses Not on filedocumented in this encounter Care Teams Corduroy Brusher Operator Relationship Specialty Start Date End Date Theresa Hardy MD PCP - General 05/22/10 03/15/21 [address] [place] [address] [address] documented as of this encounter
--- OUTSIDE RECORDS SUMMARY | 2021-11-26 15:07 | XMS_ITS | Encounter Summary ---
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 [place], [place] RESECTION, [place] [address] [place]ECTION [id number] [phone] Social History Tobacco Use Types Packs/Day Years [...] at Date Recorded Female 02/21/2021 8:36 PM HAZARDOUS WASTE MANAGEMENT SPECIALIST documented as of this encounter Last Filed Vital Signs Vital Sign Reading Time Taken Comments Blood Pressure 104/62 03/16/2021 11:42 AM HAZARDOUS WASTE MANAGEMENT SPECIALIST Pulse 57 03/16/2021 11:42 AM HAZARDOUS WASTE MANAGEMENT SPECIALIST Temperature 36.6 ??C (97.8 ??F) 03/16/2021 9:49 AM HAZARDOUS WASTE MANAGEMENT SPECIALIST Respiratory Rate 19 03/16/2021 11:42 AM HAZARDOUS WASTE MANAGEMENT SPECIALIST Oxygen Saturation 97% 03/16/2021 11:42 AM HAZARDOUS WASTE MANAGEMENT SPECIALIST Inhaled Oxygen Concentration - - Weight 73 kg (160 lb 14.4 oz) 03/16/2021 9:49 AM HAZARDOUS WASTE MANAGEMENT SPECIALIST Height 149.9 cm (4' 11) 03/16/2021 9:49 AM HAZARDOUS WASTE MANAGEMENT SPECIALIST Body Mass Index 32.92 03/16/2021 8:29 PM HAZARDOUS WASTE MANAGEMENT SPECIALIST documented in this encounter Discharge Summaries Nathaly Gonzalez PA-C - 03/21/2021 2:20 PM CST DISCHARGE SUMMARY Patient ID: Fifi Kasper [id number] y.o. 1970 Admit date: 03/16/2021 Discharge [...] Fri04/18/2006, Oral, FaxPN: LW called/fax pharm:[facility] Fax #:[phone] !! - Potential duplicate medications found. Please [...] will arrange your first appointment with them. RDOUS WASTE MANAGEMENT SPECIALIST documented in this encounter Discharge Instructions Discharge Instr - Other Nathaly Castellanos PA-C - 03/21/2021 12:38 PM HAZARDOUS WASTE MANAGEMENT SPECIALIST CT Surgery Discharge Instructions Please shower and gently wash incisions daily. Change dressings over chest tube sites daily until dry, then leave open to air. No driving until seen by surgeon in follow-up. No heavy lifting or strenuous activity. Watch for signs of infection: redness, fever, warmth to incision, odor from incision-call surgeon's office with any of these symptoms. RDOUS WASTE MANAGEMENT SPECIALIST documented in this encounter Medications at Time [...] including possible side effects. Prescriptions filled by [facility] pharmacy. Belongings checklist reviewed with patient and belongings sent. Care plan issues addressed and education record updated. R: Patient verbalizes understanding and teaches back discharge instructions. Patient discharged by: wheelchair with family. RDOUS WASTE MANAGEMENT SPECIALIST Nathaly Gonzalez PA-C - 03/21/2021 12:33 PM [...] Out: 1740 [Urine:1470; Chest Tube:270] UOP: 100/8h COMMUNITY CASE MANAGER: 270/24 Air Leak: No Current Weight: 163 lb (78331 g) Admission Weight: 161 PHYSICAL EXAM: Heart: [...] as long as pain is treated appropriately RDOUS WASTE MANAGEMENT SPECIALIST Kj Nagy MD - 03/21/2021 6:28 AM [...] Resp: 17 Temp: 36.9 ??C (98.5 ??F) RDOUS WASTE MANAGEMENT SPECIALIST Emani Joe RN - 03/20/2021 6:13 PM CST Shift [id number] Epidural still running at 10mL/h. Pain well [...] Out: 2475 [Urine:2225; Chest Tube:250] UOP: 600/8h COMMUNITY CASE MANAGER: 170 since 0 on 03/19/21 Air Leak: No Current Weight: 163 lb (92053 g) Admission Weight: 161 PHYSICAL EXAM: Heart: [...] (4 walks per day) and IS use RDOUS WASTE MANAGEMENT SPECIALIST Dennis Owusu MD - 03/20/2021 8:40 AM CST Anesthesiology Acute Pain Progress Note 03/20/2021, 8:40 AM Fifi Ranjith [id number] 1970 Iinfusion rate: 10 ml/hr SUBJECTIVE: Pain [...] Discontinue tomorrow: possible, depending on chest tubes. RDOUS WASTE MANAGEMENT SPECIALIST Emani Joe RN - 03/19/2021 6:45 PM CST Shift [id number] Epidural still running at 10mL/h. R CT y-sited & air leak present-- not new occurrence. Total output 200mL. Provided torodol x1 for shoulder/CT site pain w/ relief. C/o generalized itching, provided benadryl x1 with improvement. Is ambulating in halls with RN, up in chair often. On RA, continuous pulse ox. Overall pleasant & can make needs known. RDOUS WASTE MANAGEMENT SPECIALIST Abdoulaye Silvestre APRN, MANAGER [employer] - 03/19/2021 10:07 AM CST DAILY PROGRESS [...] Out: 2355 [Urine:2024; Chest Tube:330] UOP: 1050/8h COMMUNITY CASE MANAGER: 170/8h Air Leak: No Current Weight: 161 lb (63174 g) Admission Weight: 161 PHYSICAL EXAM: Heart: [...] (4 walks per day) and IS use RDOUS WASTE MANAGEMENT SPECIALIST Tommy Amador MD - 03/19/2021 7:14 AM CST Anesthesiology Acute Pain Progress Note 03/19/2021, 7:14 AM Fifi Kasper [id number] 1970 Surgical Procedure: R Thoracoscopy/RLL Resection Post-op [...] well Discontinue once chest tubes are removed RDOUS WASTE MANAGEMENT SPECIALIST Nathaly Gonzalez PA-C - 03/18/2021 9:45 AM [...] Out: 2720 [Urine:2300; Chest Tube:420] UOP: 350/8h COMMUNITY CASE MANAGER: 130/8h Air Leak: Yes Current Weight: 161 lb (21020 g) Admission Weight: 161 PHYSICAL EXAM: Heart: [...] (4 walks per day) and IS use RDOUS WASTE MANAGEMENT SPECIALIST Yandy Clarke MD - 03/18/2021 7:32 AM CST Anesthesiology Acute Pain Progress Note 03/18/2021 Fifi Kasper [id number] 1970 Patient is post-op day # 2 [...] or concerns. Yandy Clarke MD 7:32 AM RDOUS WASTE MANAGEMENT SPECIALIST Marilu Tesfaye, RN - 03/18/2021 5:55 AM CST Shift Update: -Patient reports pain is controlled. Pain is worse w/ deep breathing and coughing. -Nubain x1 for itching. -Ambulated to the bathroom and in room without issue. -Had a BM. -Tolerating regular diet. -Keenan removed at 0540. Vitals: 03/18/21 0507 BP: 101/40 Pulse: 67 Resp: 18 Temp: RDOUS WASTE MANAGEMENT SPECIALIST Nathaly Gonzalez PA-C - 03/17/2021 10:23 AM [...] Out: 1371 [Urine:1050; Chest Tube:121] UOP: 800/8h COMMUNITY CASE MANAGER: 80/8h Air Leak: Yes Current Weight: 161 lb (60148 g) Admission Weight: 161 PHYSICAL EXAM: Heart: [...] (4 walks per day) and IS use RDOUS WASTE MANAGEMENT SPECIALIST Gina Bravo MD - 03/17/2021 8:00 AM [...] removed. Gina Bravo MD 8:00 AM, 03/17/2021 RDOUS WASTE MANAGEMENT SPECIALIST Marilu Tesfaye RN - 03/17/2021 6:04 AM [...] Patient status: VSS, pain controlled. Will monitor. RDOUS WASTE MANAGEMENT SPECIALIST documented in this encounter Procedure Notes Gina Tierney MD - 03/16/2021 5:56 PM CST [facility] Brief Operative Progress Note Surgery Date: 03/16/2021 [...] 03/16/2021 1722 Complications / Findings: As expected RDOUS WASTE MANAGEMENT SPECIALIST Gina Tierney MD - 03/16/2021 12:00 AM CST NAME: FIFI KASPER CSN: [id number] OPERATIVE REPORT DATE OF SURGERY: 03/16/2021 : 1970 SURGEON: GINA TIERNEY MD PREOPERATIVE DIAGNOSIS: Adenocarcinoma of the right lower lobe. POSTOPERATIVE DIAGNOSIS: Adenocarcinoma of the right lower lobe. PROCEDURE: Right lower lobectomy with a minimally invasive video-assisted thoracoscopic technique. BISCUIT FACTORY WORKER: Nathaly Gonzalez PA-C. SPECIMEN: Station 9, 2, [...] chest was irrigated with saline and two 24-Yemeni chest tubes were placed and secured with #2 nylon sutures. The myofascial layers were closed with 2-0 Vicryl and deep dermal tissue was closed with 3-0 Vicryl. The skin was closed with 4-0 Monocryl. All sponge, needle, instrument counts were correct at the conclusion of the operation. IGina, was present and scrubbed for the entire procedure. GINA TIERNEY MD TAS/AQS /[id number] RDOUS WASTE MANAGEMENT SPECIALIST documented in this encounter Plan of Treatment Upcoming Encounters Date Type Specialty Care Team Description 01/02/2022 Appointment Radiology PN Kian Winters MBBS [address] [facility], [address] [address] (Opal osman) 01/04/2022 Appointment Oncology Kian Winters MBBS [address] [place] [address] [facility] [place], [place] [address] (Opal osman) documented as of this encounter Procedures Procedure Name Priority Date/Time Associated Diagnosis Comme nts XR CHEST 1 VIEW Routine 03/20/2021 4:41 PM Result s for this HAZARDOUS WASTE MANAGEMENT SPECIALIST procedure are i n the results section. HEMOGLOBIN, BLOOD STAT 03/16/2021 6:37 PM Resu lts for this HAZARDOUS WASTE MANAGEMENT SPECIALIST procedure are i n the results section. POTASSIUM STAT 03/16/2021 6:37 PM Results f or this HAZARDOUS WASTE MANAGEMENT SPECIALIST procedure are i n the results section. SURGICAL PATHOLOGY Routine 03/16/2021 2:48 PM Malignant neopla sm Results for this HAZARDOUS WASTE MANAGEMENT SPECIALIST of lower lobe of procedure a re in right lung (HRC) the results section. THORACOSCOPY/THORAC 03/16/2021 1:19 PM Malignant neopl asm OTOMY/LUNG HAZARDOUS WASTE MANAGEMENT SPECIALIST of lower lobe of RESECTION right lung (HRC) Case Notes XRAY TAKEN AT END OF CASE BT SECOND DRAW STAT 03/16/2021 10:21 Results f or this AM HAZARDOUS WASTE MANAGEMENT SPECIALIST procedure are i n the results section. GLUCOSE, WHOLE BLOOD Routine 03/16/2021 10:17 Res ults for this POCT AM HAZARDOUS WASTE MANAGEMENT SPECIALIST procedure are i n the results section. ECG 12 LEAD INPATIENT Specified Time 03/16/2021 10:08 Malignant Results for this AM HAZARDOUS WASTE MANAGEMENT SPECIALIST neoplasm of procedure are i n lower lobe of the results right lung (HRC) section. US ANESTHESIA GUIDED STAT 03/16/2021 10:06 Res ults for this BLOCK AM HAZARDOUS WASTE MANAGEMENT SPECIALIST procedure are i n the results section. TYPE AND SCREEN Routine 03/16/2021 9:52 Malignant Results f or this AM HAZARDOUS WASTE MANAGEMENT SPECIALIST neoplasm of procedure are i n lower lobe of the results right lung (HRC) section. CBC AND DIFFERENTIAL STAT 03/16/2021 9:52 Malignant Resu lts for this PANEL AM HAZARDOUS WASTE MANAGEMENT SPECIALIST neoplasm of procedure are i n lower lobe of the results right lung (HRC) section. ANTIBODY SCREEN Routine 03/16/2021 9:52 Malignant Results f or this AM HAZARDOUS WASTE MANAGEMENT SPECIALIST neoplasm of procedure are i n lower lobe of the results right lung (HRC) section. BLOOD TYPE Routine 03/16/2021 9:52 Malignant Results for this AM HAZARDOUS WASTE MANAGEMENT SPECIALIST neoplasm of procedure are i n lower lobe of the results right lung (HRC) section. COMPLETE BLOOD STAT 03/16/2021 9:52 Malignant Results fo r this COUNT-W/DIFF AM HAZARDOUS WASTE MANAGEMENT SPECIALIST neoplasm of procedure are i n lower lobe of the results right lung (HRC) section. BASIC METABOLIC PANEL STAT 03/16/2021 9:52 Malignant Res ults for this AM HAZARDOUS WASTE MANAGEMENT SPECIALIST neoplasm of procedure are i n lower lobe of the results right lung (HRC) section. APTT (ACTIVATED STAT 03/16/2021 9:52 Malignant Results f or this PARTIAL AM HAZARDOUS WASTE MANAGEMENT SPECIALIST neoplasm of procedure are i n THROMBOPLASTIN TIME lower lobe of the res ults right lung (HRC) section. INR/PROTIME STAT 03/16/2021 9:52 Malignant Results for this AM HAZARDOUS WASTE MANAGEMENT SPECIALIST neoplasm of procedure are i n lower lobe of the results right lung (HRC) section. POCT URINE STAT 03/16/2021 9:40 Resu lts for this AM HAZARDOUS WASTE MANAGEMENT SPECIALIST procedure are i n the results section. documented in this encounter Results XR Chest 1 View (03/20/2021 4:41 PM HAZARDOUS WASTE MANAGEMENT SPECIALIST) Anatomical Region Laterality Modality Chest, Lung Digital Radiography Specimen (Source) Anatomical Collection Method Collection Time Re ceived Time Location / / Volume Laterality 03/20/2021 4:36 PM HAZARDOUS WASTE MANAGEMENT SPECIALIST Impressions 03/20/2021 4:47 PM HAZARDOUS WASTE MANAGEMENT SPECIALIST COMPARISON: ??03/16/2021 FINDINGS: Patient rotated. Prior ET [...] PA-C RAD GD POTASSIUM (03/16/2021 6:37 PM HAZARDOUS WASTE MANAGEMENT SPECIALIST) P athologist Signature Potassium 3.7 3.5 - 5.1 03/16/2021 [facility] mmol/L 7:03 PM HAZARDOUS WASTE MANAGEMENT SPECIALIST LABORATORY Specimen Anatomical Collection Method / Collection Time Recei leoncio Time (Source) Location / Volume Laterality Blood Venipuncture / 03/16/2021 6:37 03/16/2021 6:50 Unknown PM HAZARDOUS WASTE MANAGEMENT SPECIALIST PM HAZARDOUS WASTE MANAGEMENT SPECIALIST Gina Tierney MD LAB_1 Performing Organization Address City/State/ZIP Code Phon e Number [facility] [address] [place] [address] HEMOGLOBIN, BLOOD (03/16/2021 6:37 PM HAZARDOUS WASTE MANAGEMENT SPECIALIST) P athologist Signature Hemoglobin 12.3 12.0 - 15.5 03/16/2021 [facility] g/dL 6:53 PM HAZARDOUS WASTE MANAGEMENT SPECIALIST LABORATORY Specimen Anatomical Collection Method / Collection Time Recei leoncio Time (Source) Location / Volume Laterality Blood Venipuncture / 03/16/2021 6:37 03/16/2021 6:50 Unknown PM HAZARDOUS WASTE MANAGEMENT SPECIALIST PM HAZARDOUS WASTE MANAGEMENT SPECIALIST Gina Tierney MD LAB_1 Performing Organization Address City/State/ZIP Code Phon e Number [facility] [address] [place] [address] Surgical Path (03/16/2021 2:48 PM HAZARDOUS WASTE MANAGEMENT SPECIALIST) Component Value Ref Test Analysis Performed At Patholo gist Range Method Time Signature Case Report Surgical Pathology ?Case: [id number] ? 03/21/2021 [facility] Authorizing Provider: ??Gina Estrada MD ?Collected: ? 03/16/2021 1448 ? 3:24 PM LABO RATORY Ordering Location: ? [facility] Operating Room ?? Received: ?03/16/2021 1459 ? HAZARDOUS WASTE MANAGEMENT SPECIALIST Pathologist: ? Augie Escalera MD ? Specimens: [...] A. Lymph node, STATION 9, biopsy: 03/21/2021 [facility] Electronically Please see synoptic report for details 3 :24 PM LABORATORY signed by Augie Leon B. Lymph node, STATION 7, biopsy: MD [...] report for details Synoptic Report LUNG 03/21/2021 [facility] LUNG: RESECTION - All Specimens 3:24 PM LABORATORY 8th Edition - Protocol posted: 06/16/2019 HAZARDOUS WASTE MANAGEMENT SPECIALIST SPECIMEN ?? Procedure: ?Wedge resection ?? Specimen [...] Lymph Nodes (pN): ?pN0 Clinical Malignant 03/21/2021 [facility] Information neoplasm of 3:24 PM LABORATORY lower lobe of HAZARDOUS WASTE MANAGEMENT SPECIALIST right lung (HRC) Microscopic Microscopic 03/21/2021 [facility] Description examination is 3:24 PM LABORATORY performed. HAZARDOUS WASTE MANAGEMENT SPECIALIST Special Stains The stain controls have been reviewed and stain appropriately. Elastic stain performed on block E6 does not demonstrate visceral pleural invasion. 03/21/2021 [facility] 3:24 PM LABORATORY HAZARDOUS WASTE MANAGEMENT SPECIALIST Gross A: 03/21/2021 [facility] Description The specimen is received beth for frozen section and labeled with the patient's name and Lymph node, STATION 9. The specimen consists of a 0.2 cm tissue fragment. The specimen is entirely submitted for frozen section in cassette A1. DJ 3:24 PM LABORATORY HAZARDOUS WASTE MANAGEMENT SPECIALIST B: The specimen is received beth for [...] The remaining parenchyma is purple-brown and spongy. All Purpose Clerk sections are submitted as follows: E1: Frozen section remnant, en face parenchymal margin neare st mass E2: En face bronchial margin E3: En face vascular margins E4: 3 whole possible lymph nodes E5: Additional en face parenchymal margin near mass is E6-E10: Mass entirely submitted with area of pleural puckeri ng E11: Smaller nodules, whole E12: All Purpose Clerk uninvolved parenchyma F: The specimen is received [...] margin/previous staple line). DJ Intraoperative A: 03/21/2021 [facility] Consultation Frozen section diagnosis (FS A1): Station 9 lymph node -- negative. (Result called into OR 6 by JCC at 3:11 PM, 03/16/2021) 3:24 PM LABORATORY HAZARDOUS WASTE MANAGEMENT SPECIALIST B: Frozen section diagnosis (FS B1): Station 7 lymph node -- negative. (Result called into OR 6 by JCC at 3:19 PM, 03/16/2021) C: Frozen section diagnosis (FS C1): Station 4R and 2R -- negative. (Result called into OR 6 by JCC at 4:22 PM, 03/16/2021) E: Frozen section diagnosis (FS E1): Right lower lobe -- positive for carcinoma. (Result called into OR 6 by JCC at 5:05 PM, 03/16/2021) F: Frozen section diagnosis (FS F1): Right upper lobe wedge -- negative. (Result called into OR 6 by [facility] at 5:41 PM, 03/16/2021) Embedded Images 03/21/2021 [facility] 3:24 PM LABORATORY HAZARDOUS WASTE MANAGEMENT SPECIALIST Specimen Anatomical Collection Method Collection Time Receive d Time (Source) Location / / Volume Laterality Tissue LYMPH NODE BIOPSY 03/16/2021 2:48 PM 02/18 2:59 SPECIMEN / Unknown HAZARDOUS WASTE MANAGEMENT SPECIALIST PM HAZARDOUS WASTE MANAGEMENT SPECIALIST Tissue specimen LYMPH NODE BIOPSY 03/16/2021 3:01 PM 0 03/16/2021 3:08 (specimen) SPECIMEN / Unknown HAZARDOUS WASTE MANAGEMENT SPECIALIST PM HAZARDOUS WASTE MANAGEMENT SPECIALIST Tissue specimen LYMPH NODE BIOPSY 03/16/2021 3:51 PM 0 03/16/2021 4:07 (specimen) SPECIMEN / Unknown HAZARDOUS WASTE MANAGEMENT SPECIALIST PM HAZARDOUS WASTE MANAGEMENT SPECIALIST Tissue specimen LYMPH NODE BIOPSY 03/16/2021 4:16 PM 0 03/16/2021 4:35 (specimen) SPECIMEN / Unknown HAZARDOUS WASTE MANAGEMENT SPECIALIST PM HAZARDOUS WASTE MANAGEMENT SPECIALIST Tissue specimen SPECIMEN FROM LUNG 03/16/2021 4:29 PM 03/16/2021 4:35 (specimen) / Unknown HAZARDOUS WASTE MANAGEMENT SPECIALIST PM HAZARDOUS WASTE MANAGEMENT SPECIALIST Tissue specimen SPECIMEN FROM LUNG 03/16/2021 5:22 PM 03/16/2021 5:27 (specimen) / Unknown HAZARDOUS WASTE MANAGEMENT SPECIALIST PM HAZARDOUS WASTE MANAGEMENT SPECIALIST Gina Tierney MD LAB PATHOLOGY Performing Organization Address City/State/ZIP Code Phon e Number [facility] [address] [place] [id number] Blood Type second draw (03/16/2021 10:21 AM HAZARDOUS WASTE MANAGEMENT SPECIALIST) P athologist Signature ABO O 03/16/2021 [facility] 12:05 PM HAZARDOUS WASTE MANAGEMENT SPECIALIST BLOOD BANK RH Negative 03/16/2021 [facility] 12:05 PM HAZARDOUS WASTE MANAGEMENT SPECIALIST BLOOD BANK Specimen Anatomical Collection Method / Collection Time Recei leoncio Time (Source) Location / Volume Laterality Blood Venipuncture / 03/16/2021 10:21 2 Unknown AM HAZARDOUS WASTE MANAGEMENT SPECIALIST 10:40 AM HAZARDOUS WASTE MANAGEMENT SPECIALIST Gina Tierney MD LAB_1 Performing Organization Address City/State/[facility] Phon e Number [facility] [address] [place] [address] Glucose, Whole Blood POCT (03/16/2021 10:17 AM HAZARDOUS WASTE MANAGEMENT SPECIALIST) Analysis Performed At Patho logist Time Signature Glucose, Whole 90 70 - 180 03/16/2021 [facility] Blood mg/dL 10:19 AM HAZARDOUS WASTE MANAGEMENT SPECIALIST LABORATORY Performing [place] SURG 03/16/2021 [facility] Location 10:19 AM HAZARDOUS WASTE MANAGEMENT SPECIALIST LABORATORY Specimen Anatomical Collection Method Collection Time Receive d Time (Source) Location / / Volume Laterality Blood 03/16/2021 10:17 03/16/2021 AM HAZARDOUS WASTE MANAGEMENT SPECIALIST 10:19 AM HAZARDOUS WASTE MANAGEMENT SPECIALIST Gina Tierney MD LAB_1 Performing Organization Address City/State/ZIP Code Phon e Number [facility] [address] [place] [address] ECG 12 Lead Inpatient (03/16/2021 10:08 AM HAZARDOUS WASTE MANAGEMENT SPECIALIST) P athologist Signature Ventricular Rate 54 BPM [facility] Atrial Rate 54 BPM [facility] P-R Interval 154 ms [facility] QRS Duration 86 ms [facility] QT 448 ms [facility] QTc 424 ms [facility] P [place] 55 degrees [facility] R [place] 8 degrees [facility] T [place] 59 degrees [facility] Specimen (Source) Anatomical Collection Method Collection Time Re ceived Time Location / / Volume Laterality 03/16/2021 10:08 AM HAZARDOUS WASTE MANAGEMENT SPECIALIST Narrative [facility] - 03/16/2021 10:23 AM HAZARDOUS WASTE MANAGEMENT SPECIALIST Sinus bradycardia Poor R wave progression Abnormal [...] e Number [facility] [address] [place] [address] US Anesthesia Guided Block (03/16/2021 10:06 AM HAZARDOUS WASTE MANAGEMENT SPECIALIST) Anatomical Region Laterality Modality Ultrasound Specimen (Source) Anatomical Location Collection Method / Collectio n Time Received Time / Laterality Volume Narrative 03/16/2021 10:06 AM HAZARDOUS WASTE MANAGEMENT SPECIALIST If an Anesthesia block was performed please see the Anesthesia encounter for documentation. ??This procedure was performed and interpreted by the performing provider. ?? Tommy Amador MD RAD US Antibody Screen (03/16/2021 9:52 AM HAZARDOUS WASTE MANAGEMENT SPECIALIST) [facility] Method Time Signature Antibody Screen Negative 03/16/2021 [facility] Interpretation 11:02 AM HAZARDOUS WASTE MANAGEMENT SPECIALIST BLOOD BANK Specimen Anatomical Collection Method / Collection Time Recei leoncio Time (Source) Location / Volume Laterality Blood Venipuncture / 03/16/2021 9:52 03/16/2021 Unknown AM HAZARDOUS WASTE MANAGEMENT SPECIALIST 10:02 AM HAZARDOUS WASTE MANAGEMENT SPECIALIST Gina Tierney MD LAB_1 Performing Organization Address [facility] [address]/[facility] Phon e Number [facility] [address] [place] [address] Blood Type (03/16/2021 9:52 AM HAZARDOUS WASTE MANAGEMENT SPECIALIST) athologist Signature ABO O 03/16/2021 [facility] 11:02 AM HAZARDOUS WASTE MANAGEMENT SPECIALIST BLOOD BANK RH Negative 03/16/2021 [facility] 11:02 AM HAZARDOUS WASTE MANAGEMENT SPECIALIST BLOOD BANK Specimen Anatomical Collection Method / Collection Time Recei leoncio Time (Source) Location / Volume Laterality Blood Venipuncture / 03/16/2021 9:52 03/16/2021 Unknown AM HAZARDOUS WASTE MANAGEMENT SPECIALIST 10:02 AM HAZARDOUS WASTE MANAGEMENT SPECIALIST Gina Tierney MD LAB_1 Performing Organization Address City/[facility] [address]/[facility] Phon e Number [facility] [address] [place] [address] (ABNORMAL) Complete Blood Count-W/Diff (03/16/2021 9:52 AM HAZARDOUS WASTE MANAGEMENT SPECIALIST) [facility] Method Time Signature WBC 4.8 3.5 - 10.5 03/16/2021 [facility] x10(9)/L 10:08 AM HAZARDOUS WASTE MANAGEMENT SPECIALIST LABORATORY RBC 3.83 (L) 3.90 - 03/16/2021 [facility] 5.03 10:08 AM HAZARDOUS WASTE MANAGEMENT SPECIALIST LABORATORY x10(12)/L Hemoglobin 12.1 12.0 - 03/16/2021 [facility] 15.5 g/dL 10:08 AM HAZARDOUS WASTE MANAGEMENT SPECIALIST LABORATORY HCT 37.2 34.9 - 03/16/2021 [facility] 44.5 % 10:08 AM HAZARDOUS WASTE MANAGEMENT SPECIALIST LABORATORY MCV 97.1 80.0 - 03/16/2021 [facility] 100.0 fL 10:08 AM HAZARDOUS WASTE MANAGEMENT SPECIALIST LABORATORY MCH 31.6 27.6 - 03/16/2021 [facility] 33.3 pg 10:08 AM HAZARDOUS WASTE MANAGEMENT SPECIALIST LABORATORY MCHC 32.5 31.5 - 03/16/2021 [facility] 35.2 g/dL 10:08 AM HAZARDOUS WASTE MANAGEMENT SPECIALIST LABORATORY RDW 13.5 11.9 - 03/16/2021 [facility] 15.5 % 10:08 AM HAZARDOUS WASTE MANAGEMENT SPECIALIST LABORATORY Platelets 179 150 - 450 03/16/2021 [facility] x10(9)/L 10:08 AM HAZARDOUS WASTE MANAGEMENT SPECIALIST LABORATORY Automated NRBC 0 <=0 /100 03/16/2021 [facility] WBC 10:08 AM HAZARDOUS WASTE MANAGEMENT SPECIALIST LABORATORY Neutrophil 3.1 1.7 - 7.0 03/16/2021 [facility] Absolute 10(9)/L 10:08 AM HAZARDOUS WASTE MANAGEMENT SPECIALIST LABORATORY Lymphocyte 1.3 1.0 - 4.8 03/16/2021 [facility] Absolute 10(9)/L 10:08 AM HAZARDOUS WASTE MANAGEMENT SPECIALIST LABORATORY Monocytes 0.3 0.2 - 0.9 03/16/2021 [facility] Absolute 10(9)/L 10:08 AM HAZARDOUS WASTE MANAGEMENT SPECIALIST LABORATORY Eosinophil 0.0 0.0 - 0.5 03/16/2021 [facility] Absolute 10(9)/L 10:08 AM HAZARDOUS WASTE MANAGEMENT SPECIALIST LABORATORY Basophil 0.0 0.0 - 0.3 03/16/2021 [facility] Absolute 10(9)/L 10:08 AM HAZARDOUS WASTE MANAGEMENT SPECIALIST LABORATORY Immature Gran % 0.2 0.0 - 0.5 03/16/2021 [facility] % 10:08 AM HAZARDOUS WASTE MANAGEMENT SPECIALIST LABORATORY Specimen Anatomical Collection Method / Collection Time Recei leoncio Time (Source) Location / Volume Laterality Blood Venipuncture / 03/16/2021 9:52 03/16/2021 Unknown AM HAZARDOUS WASTE MANAGEMENT SPECIALIST 10:02 AM HAZARDOUS WASTE MANAGEMENT SPECIALIST Gina Tierney MD LAB_1 Performing Organization Address City/State/ZIP Code Phon e Number [facility] [address] [place] [address] APTT (ACTIVATED PARTIAL THROMBOPLASTIN TIME (03/16/2021 9:52 AM HAZARDOUS WASTE MANAGEMENT SPECIALIST) P athologist Signature APTT 26.4 22.5 - 36.5 03/16/2021 [facility] 10:20 AM HAZARDOUS WASTE MANAGEMENT SPECIALIST LABORATORY Specimen Anatomical Collection Method / Collection Time Recei leoncio Time (Source) Location / Volume Laterality Blood Venipuncture / 03/16/2021 9:52 03/16/2021 Unknown AM HAZARDOUS WASTE MANAGEMENT SPECIALIST 10:02 AM HAZARDOUS WASTE MANAGEMENT SPECIALIST Gina Tierney MD LAB_1 Performing Organization Address City/State/ZIP Code Phon e Number [facility] [address] [place] [address] INR/PROTIME (03/16/2021 9:52 AM HAZARDOUS WASTE MANAGEMENT SPECIALIST) P athologist Signature Protime 13.0 11.8 - 14.6 03/16/2021 [facility] 10:20 AM HAZARDOUS WASTE MANAGEMENT SPECIALIST LABORATORY INR 1.0 0.9 - 1.1 03/16/2021 [facility] 10:20 AM HAZARDOUS WASTE MANAGEMENT SPECIALIST LABORATORY Specimen Anatomical Collection Method / Collection Time Recei leoncio Time (Source) Location / Volume Laterality Blood Venipuncture / 03/16/2021 9:52 03/16/2021 Unknown AM HAZARDOUS WASTE MANAGEMENT SPECIALIST 10:02 AM HAZARDOUS WASTE MANAGEMENT SPECIALIST Narrative [facility] - 03/16/2021 10:20 AM HAZARDOUS WASTE MANAGEMENT SPECIALIST Therapeutic range determined by protocol established by anticoagulation provider. Gina Tierney MD LAB_1 Performing Organization Address City/State/ZIP Code Phon e Number [facility] [address] [place] [address] (ABNORMAL) Basic Metabolic Panel (03/16/2021 9:52 AM HAZARDOUS WASTE MANAGEMENT SPECIALIST) Analysis Performed At Patho logist Time Signature Sodium 143 136 - 145 03/16/2021 [facility] mmol/L 10:29 AM HAZARDOUS WASTE MANAGEMENT SPECIALIST LABORATORY Potassium 3.9 3.5 - 5.1 03/16/2021 [facility] mmol/L 10:29 AM HAZARDOUS WASTE MANAGEMENT SPECIALIST LABORATORY Chloride 116 (H) 98 - 109 03/16/2021 [facility] mmol/L 10:29 AM HAZARDOUS WASTE MANAGEMENT SPECIALIST LABORATORY CO2 20 20 - 29 03/16/2021 [facility] mmol/L 10:29 AM HAZARDOUS WASTE MANAGEMENT SPECIALIST LABORATORY Anion Gap 7 7 - 16 03/16/2021 [facility] mmol/L 10:29 AM HAZARDOUS WASTE MANAGEMENT SPECIALIST LABORATORY Calcium 8.6 8.4 - 10.4 03/16/2021 [facility] mg/dL 10:29 AM HAZARDOUS WASTE MANAGEMENT SPECIALIST LABORATORY BUN 14 7 - 26 03/16/2021 [facility] mg/dL 10:29 AM HAZARDOUS WASTE MANAGEMENT SPECIALIST LABORATORY Creatinine 0.94 0.55 - 03/16/2021 [facility] 1.02 mg/dL 10:29 AM HAZARDOUS WASTE MANAGEMENT SPECIALIST LABORATORY GFR, Estimated >60 >60 03/16/2021 [facility] mL/min/1.7 10:29 AM HAZARDOUS WASTE MANAGEMENT SPECIALIST LABORATORY 3m2 Glucose 105 (H) 70 - 100 03/16/2021 [facility] mg/dL 10:29 AM HAZARDOUS WASTE MANAGEMENT SPECIALIST LABORATORY Comment: The given reference range is fo r the fasting state. Non-fasting reference range for glucose is 70 - 180 mg/dL. Specimen Anatomical Collection Method / Collection Time Recei leoncio Time (Source) Location / Volume Laterality Blood Venipuncture / 03/16/2021 9:52 03/16/2021 Unknown AM HAZARDOUS WASTE MANAGEMENT SPECIALIST 10:01 AM HAZARDOUS WASTE MANAGEMENT SPECIALIST Gina Tierney MD LAB_1 Performing Organization Address City/State/ZIP Code Phon e Number [facility] [address] [place] [address] POCT urine - Surgery Use Only (03/16/2021 9:40 AM HAZARDOUS WASTE MANAGEMENT SPECIALIST) [facility] gist Method Time Signature Urine Negative Negative POCT Test - POC Control Line Yes POCT Present, Clear Background - Internal control Cartridge Lot# [id number] POCT Specimen (Source) Anatomical Collection Method Collection Time Re ceived Time Location / / Volume Laterality Urine 03/16/2021 9:40 AM HAZARDOUS WASTE MANAGEMENT SPECIALIST Gina Tierney MD ET POINT OF CARE [...] acetaminophen (TYLENOL) tablet Given 03/21/2021 1:28 PM HAZARDOUS WASTE MANAGEMENT SPECIALIST 1,00 0 mg 1,000 mg 1,000 mg, Oral, Q6H (NON-STND), First dose on Fri03/17/21 at 0200, Until Discontinued Given 03/21/2021 7:48 AM HAZARDOUS WASTE MANAGEMENT SPECIALIST 1,000 mg Given 03/20/2021 8:16 PM HAZARDOUS WASTE MANAGEMENT SPECIALIST 1,000 mg dextrose (D50) injection 25 g [...] capsule 25 mg Given 03/19/2021 1:36 PM HAZARDOUS WASTE MANAGEMENT SPECIALIST 25 mg 25 mg, Oral, Q4H PRN, Itching, if able to take oral medications, Starting on Fri03/16/21 at 2010, Until Fri03/21/21 at 1620, Give if nalbuphine (NUBAIN) not effective and if able to take oral medications., Post-op Given 03/17/2021 12:23 PM HAZARDOUS WASTE MANAGEMENT SPECIALIST 25 mg diphenhydrAMINE (BENADRYL) injection 25 mg 25 mg, Intravenous, Q4H PRN, Itching, if unable to take oral medications, Starting on Fri03/16/21 at 2010, Until Fri03/21/21 at 1620, Give if nalbuphine (NUBAIN) not effective and if unable to take oral medications., Pos t-op FLUoxetine (PROZAC) capsule 10 mg Given 03/21/2021 7:48 AM HAZARDOUS WASTE MANAGEMENT SPECIALIST 10 mg 10 mg, Oral, DAILY, First dose on 03/17/21 at 0800, Until Discontinued Given 03/20/2021 8:15 AM HAZARDOUS WASTE MANAGEMENT SPECIALIST 10 mg Given 03/19/2021 8:58 AM HAZARDOUS WASTE MANAGEMENT SPECIALIST 10 mg furosemide (LASIX) tablet 20 mg Given 03/21/2021 7:48 AM HAZARDOUS WASTE MANAGEMENT SPECIALIST 20 mg 20 mg, Oral, DIURETIC - 0800/1700, First dose on 03/18/21 at 1000, Until Discontinued Given 03/20/2021 5:34 PM HAZARDOUS WASTE MANAGEMENT SPECIALIST 20 mg Given 03/20/2021 8:15 AM HAZARDOUS WASTE MANAGEMENT SPECIALIST 20 mg glucagon rDNA (diagnostic) (GLUCAGEN) in [...] (MUCINEX) extended release Given 03/21/2021 7:48 AM HAZARDOUS WASTE MANAGEMENT SPECIALIST 1,200 mg tablet 1,200 mg 1,200 mg, Oral, BID, First dose on Fri03/16/21 at 2200, Until Discontinued, Tablet should be swallowed whole. Take with a full glass of water. Given 03/20/2021 8:05 PM HAZARDOUS WASTE MANAGEMENT SPECIALIST 1,200 mg Given 03/20/2021 8:14 AM HAZARDOUS WASTE MANAGEMENT SPECIALIST 1,200 mg hydrocortisone 2.5 % cream 1 Given 03/20/2021 10:59 PM HAZARDOUS WASTE MANAGEMENT SPECIALIST 1 Alexandrea lication Back Application 1 Application, Topical, BID PRN, Rash, Itching, Starting on Fri03/16/21 at 2009, Apply topically to skin Hazardous waste disposal required. hydrOXYzine pamoate (VISTARIL) capsule 2 5 mg Given 03/21/2021 6:08 AM HAZARDOUS WASTE MANAGEMENT SPECIALIST 25 mg 25 mg, Oral, Q6H PRN, Itching, Starting on Fri03/16/21 at 2009, Until Fri03/21/21 at 1620 Given 03/20/2021 10:57 PM HAZARDOUS WASTE MANAGEMENT SPECIALIST 25 mg Given 03/19/2021 8:17 PM HAZARDOUS WASTE MANAGEMENT SPECIALIST 25 mg ibuprofen (MOTRIN) tablet 400 mg Given 03/21/2021 11:35 AM HAZARDOUS WASTE MANAGEMENT SPECIALIST 400 mg 400 mg, Oral, QID, First dose on Fri03/21/21 at 1200, Until Discontinued, Give with food or milk. metoprolol succinate (TOPROL XL) extended Given 03/20/2021 8:05 PM HAZARDOUS WASTE MANAGEMENT SPECIALIST 100 mg release tablet 100 mg 100 mg, Oral, DAILY, First dose on Fri03/17/21 at 2000, Until Discontinued, Tablet may be split in half, but not crushed. Given 03/19/2021 8:07 PM HAZARDOUS WASTE MANAGEMENT SPECIALIST 100 mg Given 03/18/2021 8:16 PM HAZARDOUS WASTE MANAGEMENT SPECIALIST 100 mg metoprolol succinate (TOPROL XL) extended Given 03/18/2021 8:41 AM HAZARDOUS WASTE MANAGEMENT SPECIALIST 50 mg release tablet 50 mg 50 mg, Oral, DAILY, First dose on Fri03/17/21 at 0800, Until Discontinued, Tablet may be split in half, but not crushed. Given 03/17/2021 8:04 AM HAZARDOUS WASTE MANAGEMENT SPECIALIST 50 mg NaCl 0.9%-KCl 20 mEq/liter Rate/Dose Change 03/19/2021 11:29 AM 10 mL/hr infusion HAZARDOUS WASTE MANAGEMENT SPECIALIST Intravenous, at 10 mL/hr, CONTINUOUS, Starting on Fri03/16/21 at 2030, Post-op Rate/Dose Verify 03/19/2021 10:48 AM HAZARDOUS WASTE MANAGEMENT SPECIALIST 75 mL/hr New Bag Started 03/19/2021 5:15 AM HAZARDOUS WASTE MANAGEMENT SPECIALIST 75 mL/hr nalbuphine (NUBAIN) 1-2 mg in sodium chloride Given 03/19/19 3:31 AM HAZARDOUS WASTE MANAGEMENT SPECIALIST 2 mg 0.9 % 1-2 mL syringe 1-2 mg, Intravenous, Q4H PRN, Itching, Starting on Fri03/16/21 at 2010, Notify pharmacy to compound and send dose when needed., Post-op Given 03/18/2021 8:14 PM HAZARDOUS WASTE MANAGEMENT SPECIALIST 2 mg Given 03/18/2021 2:17 PM HAZARDOUS WASTE MANAGEMENT SPECIALIST 2 mg naloxone (NARCAN) injection 0.08 mg [...] oxidized cellulose (SURGICEL Given 03/16/2021 3:04 PM HAZARDOUS WASTE MANAGEMENT SPECIALIST 2 Each Wound Site HEMOSTAT) hemostat pad ONCE PRN, Starting on Fri03/16/21 at 1504, Intra-op oxyCODONE (ROXICODONE) immediate release Given 03/21/2021 11:35 AM HAZARDOUS WASTE MANAGEMENT SPECIALIST 5 mg tablet 5 mg 5 mg, Oral, Q6H PRN, Pain, Severe Pain (pain score 8-10), Starting on Fri03/21/21 at 1105, Until Fri03/21/21 at 1620 sodium chloride 0.9% injection 10-60 mL Given 03/20/2021 8:17 PM HAZARDOUS WASTE MANAGEMENT SPECIALIST 20 mL 10-60 mL, Intravenous, BID, First [...] Recently Administered Medications Times are shown in HAZARDOUS WASTE MANAGEMENT SPECIALIST. Scheduled Medication Order 03/19/2021 03/20/2021 03/21/2021 acetaminophen (TYLENOL) tablet 1,000 mg 0320 (Not Give n - Provider: Jan Broderick RN - Reason: Patient/family refused)0858 (Given - Provider: Emani Joe RN)1336 (Given - Provider: Emani Joe RN)2007 (Given - Provider: Syl Sibley) 0219 (Not Given - Provider: JAYDEN BOLES - Reason: Patient/family refused)0815 (Given - Provider: Emani Joe RN)1352 (Given - Provider: Emani Joe RN)2015 (Given - Provider: JAYDEN BOLES) 0319 (Not Given - Provider: JAYDEN BOLES - Reason: Patient/family refused)0748 (Given - Provider: Montserrat Chavez, COLETTE)1328 (Given - Provider: Montserrat Chavez, RN) 1,000 mg, Oral, Q6H (NON-STND), First [...] Joe RN) 0748 (Given - Provider: Montserrat Chavez, COLETTE) 20 mg, Oral, DIURETIC - 0800/1700, First [...] 400 mg 1135 (Given - Provider: Montserrat Chavez, COLETTE) 400 mg, Oral, QID, First dose on 03/21 at 1200, Until Discontinued, Give with food or milk. metoprolol succinate (TOPROL XL) extended release tabl et 100 mg 2006 (Given - Provider: Syl Sibley) 2004 (Given - Provider: JAYDEN BOLES) 100 mg, Oral, DAILY, First dose on Sat at 2000, Until Discontinued, Tablet may be [...] mL 2016 (Given - Provider: JAYDEN BOLES) 0727 (Not Given - Provider: Montserrat zaman RN [...] JAYDEN BOLES) 0217 (Rate/Dose Verify - Provider: [facility] JAYDEN HOLLEY)0345 (New Syringe/Cassette - Provider: JAYDEN BOLES)1319 (Started - Provider: Emani Joe RN)2016 (Rate/Dose Verify - Provider: JAYDEN BOLES) 0320 (Rate/Dose Verify - Provider: JAYDEN BOLES)0602 (Rate/Dose Verify - Provider: JAYDEN BOLES) Epidural, CONTINUOUS, Starting on Fri at 1530, Run epidural solution at 10 ml/hour per infusion pump 2247 (Started - Provider: [facility] JAYDEN HOLLEY) NaCl 0.9%-KCl 20 mEq/liter [...] by magnesium hydroxide, Starting on Fri03/16/21 at 2009, Until Fri03/21/21 at 1620, Post-op dextrose (D50) [...] 2) 1336 (See Alternative - Provider: Emani Joe, COLETTE) 25 mg, Intravenous, Q4H PRN, Itching, if [...] (CANCELED) 901 (G iven - Provider: Emani Joe, COLETTE) 2017 (Given - Provider: JAYDEN BOLES) 15 [...] additional info rmation about flushing processes, refere coe the Vascular Access Device Users Guide. Linked [...]
Post-op documented in this encounter Care Teams Program Assistant Relationship Specialty Start Date End Date David Choudhury MD PCP - General Family Practice 03/16/[address] [place] [address] documented as of this encounter
--- OUTSIDE RECORDS SUMMARY | 2021-11-26 15:07 | XMS_ITS | Encounter Summary ---
:1970 [facility] Address [address] [address] Care Team Providers Name Role Phone Theresa Hardy MD Primary Care Provider Encounter Details Date Type Department Care Team Description 09/11/2006 PN Conversion Only [facility] [address] [place] [address] Social History Tobacco Use Types Packs/Day Years [...] at Date Recorded Female 02/21/2021 8:36 PM TILER documented as of this encounter Plan of Treatment Upcoming Encounters Date Type Specialty Care Team Description 01/02/2022 Appointment Radiology PN Kian Winters MBBS [address] [facility] [place] [address] (Wo dawson) 01/04/2022 Appointment Oncology Kian Winters MBBS [address] [facility] [place] [address] (Wo rk) documented as of this encounter [...] enal calculi with no other abnormalities identified. [id number] Dictating MARQUIS ZAMBRANO RADIOLOGIST Procedure Note Marquis [...] al calculi with no other abnormalities identified. [id number]/cs Dictating MARQUIS ZAMBRANO RADIOLOGIST Liudmila M Strong PA-C RAD CT CT Abd WO IV [...] enal calculi with no other abnormalities identified. [id number]/cs Dictating MARQUIS ZAMBRANO RADIOLOGIST Procedure Note Marquis [...] al calculi with no other abnormalities identified. [id number]/cs Dictating MARQUIS ZAMBRANO RADIOLOGIST Liudmila Beatty PA-C RAD CT documented in this encounter Visit Diagnoses Not on filedocumented in this encounter Care Teams Physician President Relationship Specialty Start Date End Date Theresa Hardy MD PCP - General 05/22/10 03/15/21 [address] [place] [address] documented as of this encounter
--- OUTSIDE RECORDS SUMMARY | 2021-11-26 15:07 | XMS_ITS | Encounter Summary ---
:1970 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 documented as of this encounter Plan of Treatment Upcoming Encounters Date Type Specialty Care Team Description 01/02/2022 Appointment Radiology PN Kian Winters MBBS [address] [facility] [place] [id number] (Wo dawson) 01/04/2022 Appointment Oncology Kian Winters MBBS [address] [facility] [place] [address] (Wo rk) documented as of this encounter Visit Diagnoses Not on filedocumented in this encounter Care Teams Alining Inspector Relationship Specialty Start Date End Date Theresa Hardy MD PCP - General 05/22/10 03/15/[address] [place] [address] documented as of this encounter
--- OUTSIDE RECORDS SUMMARY | 2021-11-26 15:07 | XMS_ITS | Encounter Summary ---
:1970 Author Organization [facility] Address [address] [address] Care Team Providers Name Role Phone Theresa Haryd MD Primary Care Provider Reason for Referral Procedure/Equipment (Routine) - Incomplete Specialty Diagnoses / Procedures Referred By Contact Refer red To Contact Procedures Xochitl Fuentes MD XR Chest 1 View [address] [facility] [address] [place], [place] [address] Referral ID Status Reason Start Date Expiration Date Visits V isits Requested Authorized [id number] Incomplete 02/22/2021 05/24/2022 1 1 GER CONVENTION Procedure/Equipment (Routine) - Incomplete Specialty Diagnoses / Procedures Referred By Contact Refer red To Contact Diagnoses Lung mass Xochitl Fuentes MD Procedures CT Bx Lung Armor Reconnaissance Vehicle Driver [address] [facility] [address] [place], [place] [address] Referral ID Status Reason Start Date Expiration Date Visits V isits Requested Authorized [id number] Incomplete 02/15/2021 05/17/2022 1 1 GER CONVENTION Encounter Details Date Type Department Care Team Description 02/22/2021 Hospital Encounter Heart & Vascular Xochitl Fuentes, Lung mass Center Procedural Ar katerine CASTRO [address] [facility]. [address] [place], [place] [address] [address] [place], [place] [phone] (Wo rk) Social History Tobacco Use Types [...] Date Recorded Female 02/21/2021 8:36 PM MANAGER CONVENTION documented as of this encounter Last Filed Vital Signs Vital Sign Reading Time Taken Comments Blood Pressure 92/53 02/22/2021 2:15 PM MANAGER CONVENTION Pulse 71 02/22/2021 2:15 PM MANAGER CONVENTION Temperature 36.9 ??C (98.5 ??F) 02/22/2021 11:16 AM MANAGER CONVENTION Respiratory Rate 17 02/22/2021 1:45 PM MANAGER CONVENTION Oxygen Saturation 97% 02/22/2021 2:15 PM MANAGER CONVENTION Inhaled Oxygen Concentration - - Weight - [...] post biopsy imaging. Patient is returned to [facility] in good condition for recovery. Follow up will be pulmonary clinic to review results. Moderate conscious sedation was administered by the nurse and supervised by the physician performingthe procedure. The following parameters were monitored: oxygen saturation, heart rate, blood pressure, and response to care. Total physician intraservice time was 48 minutes. Xochitl Fuentes MD Pulmonary Medicine GER CONVENTION documented in this encounter Miscellaneous Notes Sedation Documentation - Josy Lugo RN - 02/22/2021 1:20 PM CST Procedure done. Dressing applied to site; dressing clean, dry & intact. Patient denies pain. Patient tolerated moderate sedation; vitals stable. Patient transported back to [facility]; report to bedside RN. Procedure was performed in the CT department with Moderate IV sedation and continuous physician and nurse monitoring. Total sedation time: 49 minutes Total Versed dose: 1 mg Total Fentanyl dose: 100 mcg GER CONVENTION Sedation Documentation - Josy Lugo, RN - 02/22/2021 12:19 PM MANAGER CONVENTION Timeout Timeout/pause for cause completed on 02/22/21 at 1220 Sedation Note ??? Monitors in place. ??? Patient reassessed and approved for sedation per Dr Fuentes. GER CONVENTION documented in this encounter Plan of Treatment Upcoming Encounters Date Type Specialty Care Team Description 01/02/2022 Appointment Radiology PN Kian Winters MBBS [address] [facility], [place] [address] (Wo rk) 01/04/2022 Appointment Oncology Kian Winters MBBS [address] [facility], [address] [address] (Wo rk) documented as of this encounter Procedures Procedure Name Priority Date/Time Associated Comments Diagnosis XR CHEST 1 VIEW Routine 02/22/2021 2:35 PM Result s for this MANAGER CONVENTION procedure are i n the results section. AFB CULTURE Routine 02/22/2021 1:18 PM Results f or this MANAGER CONVENTION procedure are i n the results section. AEROBIC & ANAEROBIC Routine 02/22/2021 1:18 PM Re sults for this CULTURE PANEL MANAGER CONVENTION procedure are in the results section. FUNGUS CULTURE Routine 02/22/2021 1:18 PM Results for this MANAGER CONVENTION procedure are i n the results section. ANAEROBIC CULTURE Routine 02/22/2021 1:18 PM Resu lts for this MANAGER CONVENTION procedure are i n the results section. AFB CULTURE Routine 02/22/2021 1:18 PM Results f or this MANAGER CONVENTION procedure are i n the results section. AEROBIC CULTURE Routine 02/22/2021 1:18 PM Result s for this MANAGER CONVENTION procedure are i n the results section. SURGICAL PATHOLOGY Routine 02/22/2021 1:18 PM Res ults for this MANAGER CONVENTION procedure are i n the results section. CT BX LUNG Routine 02/22/2021 1:14 PM Lung mass Results f or this CLINICAL ADVISOR MANAGER CONVENTION procedure are in the results section. CBC AND DIFFERENTIAL STAT 02/22/2021 11:19 Res ults for this PANEL AM MANAGER CONVENTION procedure are i n the results section. COMPLETE BLOOD STAT 02/22/2021 11:19 Results f or this COUNT-W/DIFF AM MANAGER CONVENTION procedure are i n the results section. INR/PROTIME STAT 02/22/2021 11:19 Results for this AM MANAGER CONVENTION procedure are i n the results section. documented in this encounter Results XR Chest 1 View (02/22/2021 2:35 PM MANAGER CONVENTION) Anatomical Region Laterality Modality Chest, Lung Digital Radiography Specimen (Source) Anatomical Collection Method Collection Time Re ceived Time Location / / Volume Laterality 02/22/2021 2:35 PM MANAGER CONVENTION Impressions 02/22/2021 2:55 PM MANAGER CONVENTION COMPARISON: ??CT 02/22/2021, 02/02/2021. FINDINGS: ??One view [...] RAD GD Anaerobic Culture (02/22/2021 1:18 PM MANAGER CONVENTION) [facility] Method Time Signature Anaerobic No Anaerobes 03/01/2021 [facility] Culture Isolated 11:05 AM [facility]OSPITAL Specimen Anatomical Collection Method Collection Time Receive d Time (Source) Location / / Volume Laterality Tissue SPECIMEN FROM LUNG Non-blood 02/22/2021 1:18 PM 07/2021 1:32 / Unknown Collection / MANAGER CONVENTION PM MANAGER CONVENTION Unknown Xochitl Fuentes MD LAB_1 Performing Organization Address [facility]/ZIP Code Phon e Number [address] [address] Aerobic Culture (02/22/2021 1:18 PM MANAGER CONVENTION) [facility] Method Time Signature Aerobic No Growth 02/25/2021 [facility] Culture After 3 Days 3:26 PM [facility] Gram Smear No PMN's 02/25/2021 [facility] Present 3:26 PM [facility] Gram Smear No Organisms 02/25/2021 [facility] Seen 3:26 PM [facility] Specimen Anatomical Collection Method Collection Time Receive d Time (Source) Location / / Volume Laterality Tissue SPECIMEN FROM LUNG Non-blood 02/22/2021 1:18 PM 07/2021 1:32 / Unknown Collection / MANAGER CONVENTION PM MANAGER CONVENTION Unknown Xochitl Fuentes MD LAB_1 Performing Organization Address [facility] Code Phon e Number [address] [address] AFB Culture (02/22/2021 1:18 PM MANAGER CONVENTION) [facility] Time Signature AFB Culture No Mycobacteria 04/21/2021 [facility] Isolated 9:11 AM [facility] AFB Smear No Acid Fast 04/21/2021 [facility] Bacilli Found 9:11 AM [facility] Specimen Anatomical Collection Method Collection Time Receive d Time (Source) Location / / Volume Laterality Tissue SPECIMEN FROM LUNG Non-blood 02/22/2021 1:18 PM 07/2021 1:32 / Unknown Collection / MANAGER CONVENTION PM MANAGER CONVENTION Unknown Xochitl Fuentes MD LAB_1 Performing Organization Address [facility] Code Phon e Number [address] [address] Surgical Path (02/22/2021 1:18 PM MANAGER CONVENTION) Component Value Ref Test Analysis Performed At [facility] Method Time Signature Case Report Surgical Pathology ?Case: [id number] ? 02/23/2021 [facility] Authorizing Provider: ??Xochitl Rose MD ?Collected: ? 02/22/2021 1318 ? 9:48 AM LABORAT ORY Ordering Location: ? [facility] ?Received: ?02/22/2021 1333 ? MANAGER CONVENTION ? Procedural Area ? Pathologist: ? Jack Leung MD ? Specimen: ?Lung, right ? FINAL A. Lung, right, needle core biopsy: 08/2021 [facility] Electronically DIAGNOSIS Low-grade adenocarcinoma 9:48 AM LABOR ATORY signed by BERTRAM Leung MD on Comment: 02/23/2021 a t 9:48 JUANCARLOS Giron has reviewe d this case and concurs with the diagnosis. An Epic message is sent to Dr. Fuentes regarding these results 02/23/21. AM Clinical Right lung mass; lifelong nonsmoker 08/2021 [facility] Information 9:48 AM LABORATORY MANAGER CONVENTION Microscopic Microscopic 02/23/2021 [facility] Description examination is 9:48 AM LABORATORY performed. MANAGER CONVENTION Gross A: 02/23/2021 [facility] Description The specimen is received in formalin and labeled with the patient's name and Lung, right. The specimen consists of multiple robison-white cylindrical, wispy, soft tissue fragments, ranging from minute-0.6 9:48 AM LABORATORY cm in length. The specimen is filtered, inked blue, and entirely submitted in one cassette. Minute portions may not survive processing. DV MANAGER CONVENTION Embedded 02/23/2021 [facility] Images 9:48 AM LABORATORY MANAGER CONVENTION Specimen Anatomical Collection Method Collection Time Receive d Time (Source) Location / / Volume Laterality Tissue SPECIMEN FROM LUNG Non-blood 02/22/2021 1:18 PM 07/2021 1:33 / Unknown Collection / MANAGER CONVENTION PM MANAGER CONVENTION Unknown Xochitl Fuentes MD LAB PATHOLOGY Performing Organization Address City/[facility]/ZIP Code Phon e Number [facility] [address] [place] [address] CFUNG - Fungal Culture and Stain (02/22/2021 1:18 PM MANAGER CONVENTION) [facility] Method Time Signature Fungus Culture No Fungus 03/26/2021 [facility] Isolated 7:44 AM [facility] Fungus Smear No Yeast or 03/26/2021 [facility] Fungal 7:44 AM [facility] Elements Found Specimen Anatomical Collection Method Collection Time Receive d Time (Source) Location / / Volume Laterality Tissue SPECIMEN FROM LUNG Non-blood 02/22/2021 1:18 PM 07/2021 1:32 / Unknown Collection / MANAGER CONVENTION PM MANAGER CONVENTION Unknown Xochitl Fuentes MD LAB_1 Performing Organization Address City/[facility]/ZIP Code Phon e Number [address] [address] [address] Bx Lung Armor Reconnaissance Vehicle Driver (02/22/2021 1:14 PM MANAGER CONVENTION) Anatomical Region Laterality Modality Chest, Lung, Guided Computed Tomography Specimen (Source) Anatomical Location Collection Method / Collectio n Time Received Time / Laterality Volume Narrative 02/22/2021 1:18 PM MANAGER CONVENTION These images were obtained during a surg ical procedure. Xochitl Fuentes MD RAD CT Complete Blood Count-W/Diff (02/22/2021 11:19 AM MANAGER CONVENTION) athologist Signature WBC 4.5 3.5 - 10.5 02/22/2021 [facility] x10(9)/L 11:42 AM MA[facility]GER CONVENTION LABORATORY RBC 3.91 3.90 - 02/22/2021 [facility] 5.03 11:42 AM MANAGER CONVENTION LABORATORY x10(12)/L Hemoglobin 12.0 12.0 - 02/22/2021 [facility] 15.5 g/dL 11:42 AM MANAGER CONVENTION LABORATORY HCT 37.7 34.9 - 02/22/2021 [facility] 44.5 % 11:42 AM MANAGER CONVENTION LABORATORY MCV 96.4 80.0 - 02/22/2021 [facility] 100.0 fL 11:42 AM MANAGER CONVENTION LABORATORY MCH 30.7 27.6 - 02/22/2021 [facility] 33.3 pg 11:42 AM MANAGER CONVENTION LABORATORY MCHC 31.8 31.5 - 02/22/2021 [facility] 35.2 g/dL 11:42 AM MANAGER CONVENTION LABORATORY RDW 13.7 11.9 - 02/22/2021 [facility] 15.5 % 11:42 AM MANAGER CONVENTION LABORATORY Platelets 186 150 - 450 02/22/2021 [facility] x10(9)/L 11:42 AM MANAGER CONVENTION LABORATORY Automated NRBC 0 <=0 /100 02/22/2021 [facility] WBC 11:42 AM MA[facility]GER CONVENTION LABORATORY Neutrophil 2.5 1.7 - 7.0 02/22/2021 [facility] Absolute 10(9)/L 11:42 AM MANAGER CONVENTION LABORATORY Lymphocyte 1.6 1.0 - 4.8 02/22/2021 [facility] Absolute 10(9)/L 11:42 AM MANAGER CONVENTION LABORATORY Monocytes 0.4 0.2 - 0.9 02/22/2021 [facility] Absolute 10(9)/L 11:42 AM MANAGER CONVENTION LABORATORY Eosinophil 0.1 0.0 - 0.5 02/22/2021 [facility] Absolute 10(9)/L 11:42 AM MANAGER CONVENTION LABORATORY Basophil 0.0 0.0 - 0.3 02/22/2021 [facility] Absolute 10(9)/L 11:42 AM MANAGER CONVENTION LABORATORY Immature Gran % 0.2 0.0 - 0.5 02/22/2021 [facility] % 11:42 AM MANAGER CONVENTION LABORATORY Specimen Anatomical Collection Method / Collection Time Recei leoncio Time (Source) Location / Volume Laterality Blood Venipuncture / 02/22/2021 11:19 2 Unknown AM MANAGER CONVENTION 11:33 AM MANAGER CONVENTION Xochitl Fuentes MD LAB_1 Performing Organization Address [facility] Code Phon e Number [facility] [address] [place] [address] INR/PROTIME (02/22/2021 11:19 AM MANAGER CONVENTION) athologist Signature Protime 13.0 11.8 - 14.6 02/22/2021 [facility] Seconds 11:54 AM MANAGER CONVENTION LABORATORY INR 1.0 0.9 - 1.1 02/22/2021 [facility] 11:54 AM MANAGER CONVENTION LABORATORY Specimen Anatomical Collection Method / Collection Time Recei leoncio Time (Source) Location / Volume Laterality Blood Venipuncture / 02/22/2021 11:19 2 Unknown AM MANAGER CONVENTION 11:33 AM MANAGER CONVENTION Narrative [facility] - 02/22/2021 11:54 AM MANAGER CONVENTION Therapeutic range determined by protocol established by anticoagulation provider. Xochitl Fuentes MD LAB_1 Performing Organization Address [facility] e Number [facility] [address] [place] [address] documented in this encounter Visit Diagnoses Diagnosis [...] capsule 25 mg Given 02/22/2021 1:53 PM MANAGER CONVENTION 25 mg 25 mg, Oral, Q6H PRN, Itching, Starting on Laine 02/22/21 at 1351, Until Laine 02/22/21 at 1857 fentaNYL (SUBLIMAZE) injection Given 02/22/2021 12:57 PM MANAGER CONVENTION 50 mcg Intravenous, PRN, Starting on Laine 02/22/21 at 1222, Until Laine 02/22/21 at 1257 Given 02/22/2021 12:22 PM MANAGER CONVENTION 50 mcg HYDROmorphone (DILAUDID) tablet 2 mg 2 mg, Oral, Q4H PRN, Other, Severe Pain (pain score 8-10), Starting on Laine 02/22/21 at 1317, Until Laine 02/22/21 at 1857 midazolam (VERSED) injection Given 02/22/2021 12:21 PM MANAGER CONVENTION 1 mg Intravenous, PRN, Starting on Laine 02/22/21 at 1221, Until Laine 02/22/21 at 1221 ondansetron (ZOFRAN) injection 4 mg 4 mg, Intravenous, Q6H PRN, Nausea, Vomi ting, Starting on Laine 02/22/21 at 1317, Until Laine 02/22/21 at 1857 documented in this encounter Active and Recently Administered Medications Times are shown in MANAGER CONVENTION. PRN Medication Order 02/20/2021 02/21/2021 02/22/2021 acetaminophen [...] 1 115 (Due)1447 (Stopped - Provider: Soila Romero, COLETTE) Starting on Laine 02/22/21 at 1107, For 1 dose, Marilu Hdz: cabinet override sodium chloride 0.9% 0.9 % injection - ADS Override Pull 1115 (Due) Starting on Laine 02/22/21 at 1107, Until Th u 02/22/21 at 2314, For 1 dose, Marilu Hdz: cabinet override documented in this encounter Care Teams Wrapper Caser Relationship Specialty Start Date End Date Theresa Hardy MD PCP - General 05/22/10 03/15/21 [address] [place] [address] documented as of this encounter
--- OUTSIDE RECORDS SUMMARY | 2021-11-26 15:07 | XMS_ITS | Encounter Summary ---
:1970 [facility] Address [address], [place] [address] Care Team Providers Name Role Phone Theresa Hardy MD Primary Care Provider Encounter Details Date Type Department Care Team Description 02/20/2021 Notes/Orders [facility] Theresa Hardy Co ntact with and Up (suspected) exposure [address] [facility] [address] [place]19 [place] [address] [phone] (Wo rk) Social History Tobacco Use Types [...] at Date Recorded Female 02/21/2021 8:36 PM IRRIGATOR SPRINKLING SYSTEM documented as of this encounter Plan of Treatment Upcoming Encounters Date Type Specialty Care Team Description 01/02/2022 Appointment Radiology PN Kian Winters Shelbie, JUANCARLOS [address] [facility], [place] [phone] (Wo rk) 01/04/2022 Appointment Oncology VianeyEvannick Morfin, JUANCARLOS [address] [facility], [place] N [address] (Wo rk) documented as of this encounter Results Asymptomatic - 2019 Novel Coronavirus (COVID-19) (02/20/2021 4:34 PM IRRIGATOR SPRINKLING SYSTEM) [facility] Method Time Signature COVID-19 Not Not 02/21/2021 [facility] Interpretation Detected Detected 10:52 AM CENTRAL LAB IRRIGATOR SPRINKLING SYSTEM Source Nares, left 02/21/2021 [facility] and right 10:52 AM CENTRAL LAB IRRIGATOR SPRINKLING SYSTEM Specimen Anatomical Collection Method Collection Time Receive d Time (Source) Location / / Volume Laterality Swab (Source ENTIRE ANTERIOR Non-blood 02/20/2021 4:34 PM 2021 4:43 Required) NARIS / Unknown Collection / IRRIGATOR SPRINKLING SYSTEM PM IRRIGATOR SPRINKLING SYSTEM Unknown Narrative [facility] C[facility]AL [facility] - 02/21/2021 10:52 AM IRRIGATOR SPRINKLING SYSTEM Test performed by Oracle Database Developer Mediated Amplification. TMA has been shown to be equivalent to commercial real-time PCR t ests. This test has been authorized by the FDA under an Emergency Use Authorization (EUA) for use by authorized laboratories. Theresa Hardy MD LAB_1 Performing Organization Address City/State/ZIP Code Phon e Number [facility] [address] [address] documented in this encounter Visit Diagnoses Diagnosis Contact with and (suspected) exposure to covid-19 documented in this encounter Care Teams Set Builder Relationship Specialty Start Date End Date Theresa Hardy MD PCP - General 05/22/10 03/15/21 [address] [address] [place] [address] documented as of this encounter
--- OUTSIDE RECORDS SUMMARY | 2021-11-26 15:07 | XMS_ITS | Encounter Summary ---
:1970 Author Organization [facility] Address [address], [place] [address] Care Team Providers Name Role Phone Theresa Hardy MD Primary Care Provider Encounter Details Date Type Department Care Team Description 11/20/2006 Nursing Visit [facility] [place] [address] [facility] [address] [place], [place] [id number] [place] [address] [phone] Social History Tobacco Use Types Packs/Day [...] at Date Recorded Female 02/21/2021 8:36 PM THERMOSTAT MAKER documented as of this encounter Plan of Treatment Upcoming Encounters Date Type Specialty Care Team Description 01/02/2022 Appointment Radiology PN Kian Winters, JUANCARLOS [address] [facility] [place] N [address] (Wo rk) 01/04/2022 Appointment Oncology Kian Winters MBBS [address] [place] [address] [place] N [address] (Wo rk) documented as of this encounter Visit Diagnoses Not on filedocumented in this encounter Care Teams Signs And Displays Salesperson Relationship Specialty Start Date End Date Theresa Hardy MD PCP - General 05/22/10 03/15/21 [address] [place] [address] documented as of this encounter
--- OUTSIDE RECORDS SUMMARY | 2021-11-26 15:07 | XMS_ITS | Encounter Summary ---
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 documented as of this encounter Plan of Treatment Upcoming Encounters Date Type Specialty Care Team Description 01/02/2022 Appointment Radiology PN Kian Winters D, MBBS [address] [place], [place] N [address] (Wo rk) 01/04/2022 Appointment Oncology Kian Winters, MBBS [address] [place], [place] [address] [address] (Wo rk) documented as of this encounter Procedures Procedure Name Priority Date/Time Associated Comments Diagnosis 2019 NOVEL Routine 02/20/2021 4:34 PM Contact with and Resul ts for this CORONAVIRUS MASON TENDER RESTORATION LABOR (suspected) procedure are i n exposure to the results covid-19 section. documented in this encounter Results Asymptomatic - 2019 Novel Coronavirus (COVID-19) (02/20/2021 4:34 PM MASON TENDER RESTORATION LABOR) [facility] Method Time Signature COVID-19 Not Not 02/21/2021 [facility] Interpretation Detected Detected 10:52 AM CENTRAL LAB MASON TENDER RESTORATION LABOR Source Nares, left 02/21/2021 [facility] and right 10:52 AM CENTRAL LAB MASON TENDER RESTORATION LABOR Specimen Anatomical Collection Method Collection Time Receive d Time (Source) Location / / Volume Laterality Swab (Source ENTIRE ANTERIOR Non-blood 02/20/2021 4:34 PM 2021 4:43 Required) NARIS / Unknown Collection / MASON TENDER RESTORATION LABOR PM MASON TENDER RESTORATION LABOR Unknown Narrative [facility] - 02/21/2021 10:52 AM MASON TENDER RESTORATION LABOR Test performed by Metallurgical Laboratory Assistant Mediated Amplification. TMA has been shown to be equivalent to commercial real-time PCR t ests. This test has been authorized by the FDA under an Emergency Use Authorization (EUA) for use by authorized laboratories. Theresa Hardy MD LAB_1 Performing Organization Address City/State/ZIP Code Phon e Number [facility] [address] [address] documented in this encounter Visit Diagnoses Diagnosis Contact with and (suspected) exposure to covid-19 documented in this encounter Care Teams Hide Inspector And Sorter Relationship Specialty Start Date End Date Theresa Hardy MD PCP - General 05/22/10 03/15/21 [address] [place], T[place] [address] documented as of this encounter
--- OUTSIDE RECORDS SUMMARY | 2021-11-26 15:07 | XMS_ITS | Encounter Summary ---
:1970 Author Organization [facility] Address [address] [address] Care Team Providers Name Role Phone Theresa Hardy MD Primary Care Provider Reason for Visit Reason Comments Appt. Scheduled Encounter Details Date Type Department Care Team Description 02/26/2021 Telephone Specialty Center [address] Stacia Ovalle MD Appt. Scheduled Pulmonary Medicine [address] [facility] [address] [place] [address] [place] [address] [phone] Social History Tobacco Use Types Packs/Day Years [...] at Date Recorded Female 02/21/2021 8:36 PM WEIGHT YARDAGE CHECKER documented as of this encounter Nursing Notes Jenny Schaeffer RN - 02/26/2021 8:[address] Ovalle had a 9:45 am cancellation this morning and said he could call pt at that time if she didn't want to wait until noon. LVM for pt to call back to see if she would want to move this appt up. HT YARDAGE CHECKER documented in this encounter Plan of Treatment Upcoming Encounters Date Type Specialty Care Team Description 01/02/2022 Appointment Radiology PN Kian Winters MBBS [address] [facility], [address] [address] (Wo rk) 01/04/2022 Appointment Oncology Kian Winters MBBS [address] [facility], [address] [address] (Wo rk) documented as of this encounter Visit Diagnoses Not on filedocumented in this encounter Care Teams Marine Plumber Relationship Specialty Start Date End Date Theresa Hardy MD PCP - General 05/22/10 03/15/21 [address] [place] [address] documented as of this encounter
--- OUTSIDE RECORDS SUMMARY | 2021-11-26 15:07 | XMS_ITS | Encounter Summary ---
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 documented as of this encounter Plan of Treatment Upcoming Encounters Date Type Specialty Care Team Description 01/02/2022 Appointment Radiology PN Kian Winters MBBS 7536 [facility] [place] [address] [address] (Wo rk) 01/04/2022 Appointment Oncology Kian Winters MBBS 6927 [facility], N [address] (Wo rk) documented as of this encounter Visit Diagnoses Not on filedocumented in this encounter Care Teams Florist Designer Relationship Specialty Start Date End Date Theresa Hardy MD PCP - General 05/22/10 03/15/21 [address] [place] [facility] [place] [id number] documented as of this encounter
--- OUTSIDE RECORDS SUMMARY | 2021-11-26 15:07 | XMS_ITS | Encounter Summary ---
:1970 [facility] Address [address] [address] Care Team Providers Name Role Phone Theresa Hardy MD Primary Care Provider Reason for Visit Procedure/Equipment (Routine) - Incomplete Specialty Diagnoses / Procedures Referred By Contact Refer red To Contact Diagnoses Lung mass Greyson Ovalle MD Procedures NM PET/CT Skull Base To Mid Thigh [address] [place], [place] [address] Referral ID Status Reason Start Date Expiration Date Visits V isits Requested Authorized [id number] Incomplete 02/26/2021 05/28/2022 6 6 Encounter Details Date Type Department Care Team Description 02/28/2021 Hospital Encounter Zoroastrian Nuclear Greyson Ovalle, Medicine [address] [place] [address] [phone] (Wo rk) Social History Tobacco Use Types [...] at Date Recorded Female 02/21/2021 8:36 PM VOICE SYSTEMS ENGINEER documented as of this encounter Medications at [...] Appointment Radiology PN Kian Winters, JUANCARLOS [address] [facility], N [address] (Wo rk) 01/04/2022 Appointment Oncology Kian Winters MBBS 39[address] [facility], N [address] (Wo rk) documented as of this encounter Procedures Procedure Name Priority Date/Time Associated Diagnosis Comme nts NM PET/CT SKULL Routine 02/28/2021 3:54 PM Lung mass Result s for this BASE TO MID THIGH VOICE SYSTEMS ENGINEER procedure are in the results section. documented in this encounter Results NM PET/CT Skull Base To Mid Thigh (02/28/2021 3:54 PM VOICE SYSTEMS ENGINEER) Anatomical Region Laterality Modality Nuclear Medicine Specimen (Source) Anatomical Collection Method Collection Time Re ceived Time Location / / Volume Laterality 02/28/2021 2:13 PM VOICE SYSTEMS ENGINEER Impressions 02/28/2021 4:25 PM VOICE SYSTEMS ENGINEER TECHNIQUE: Images were obtained from the skull [...] on filedocumented in this encounter Care Teams Plunger Shovel Operator Relationship Specialty Start Date End Date Theresa Hardy MD PCP - General 05/22/10 03/15/21 [address] [place] [facility] [address] documented as of this encounter
--- OUTSIDE RECORDS SUMMARY | 2021-11-26 15:08 | XMS_ITS | Encounter Summary ---
:1970 Author [facility] Address [address], [place] [address] Care Team Providers Name Role Phone Mariaelena Hardy MD Primary Care Provider Encounter Details Date Type Department Care Team Description 03/18/2005 Office Visit [facility] [place] [address] [place] [address] [place], [place] [address] (Wo rk) Social History Tobacco Use Types [...] at Date Recorded Female 02/21/2021 8:36 PM RN PATIENT CARE documented as of this encounter Last Filed Vital Signs Vital Sign Reading Time Taken Comments Blood Pressure 106/80 03/18/2005 9:04 AM RN PATIENT CARE Pulse 72 03/18/2005 9:04 AM RN PATIENT CARE Temperature - - Respiratory Rate - - Oxygen Saturation - - Inhaled Oxygen Concentration - - Weight 66.2 kg (145 lb 15.8 oz) 03/18/2005 9:04 AM C: 6 6.2kg RN PATIENT CARE Height 149.9 cm (4' 11) 03/18/2005 9:04 AM C: 149.9cm RN PATIENT CARE Body Mass Index 29.49 03/18/2005 9:04 AM RN PATIENT CARE documented in this encounter Progress Notes Mariaelena Hardy MD - 03/18/2005 12:01 AM CST H&P signed by Mariaelena Hardy MD at 04/07/05 1637 Author: Mariaelena Hardy MD Service: (none) Author Type: Physician Filed: 06/08/10 0953 Note Time: 03/18/05 0001 Status: Signed Purchaser [employer]otive [employer]: Mariaelena Hardy MD (Physician) NAME: MARII JOSÉ MR: [id number] ACCT: [id number] VISIT: [id number] DICTATING CLINICIAN: MARIAELENA HARDY MD JOB: [id number] CLINIC PHYSICAL DATE OF VISIT: 03/18/2005 SUBJECTIVE: [...] HISTORY: None. HOSPITALIZATIONS: None. MEDICATIONS: [facility] The patient currently takes Topamax, Lo-Ovral, Imitrex [...] labs in the mail. PLAN: See assessment. SS:[id number] C: 03/19/05 14:40 DOCUMENT: [id number] PATIENT CARE documented in this encounter Plan of Treatment Upcoming Encounters Date Type Specialty Care Team Description 01/02/2022 Appointment Radiology PN Kian Winters, JUANCARLOS 3931 [facility], N [address] (Wo rk) 01/04/2022 Appointment Oncology Kian Winters MBBS 39[address] [facility] [address] (Wo rk) documented as of this encounter Visit Diagnoses Not on filedocumented in this encounter Care Teams Bell Captain Relationship Specialty Start Date End Date Mariaelena Hardy MD PCP - General 05/22/10 03/15/21 [address] [place] [facility] [address] documented as of this encounter
--- OUTSIDE RECORDS SUMMARY | 2021-11-26 15:08 | XMS_ITS | Encounter Summary ---
:1970 Author Organization [facility] Address [address] [address] Care Team Providers Name Role Phone Theresa Hardy MD Primary Care Provider Reason for Visit Reason Comments Other Encounter Details Date Type Department Care Team Description 08/12/2005 Telephone [facility], Message Other [address] [place] [address] Social History Tobacco Use Types [...] at Date Recorded Female 02/21/2021 8:36 PM SOCIAL WORK ASSOCIATE documented as of this encounter Progress Notes Center, Message - 08/12/2005 1:05 PM CDT Phone Note filed by [employer] at 06/05/1083 Author: [employer] Service: (none) Author Type: (none) Filed: 06/05/10540 Note Time: 08/12/05 1305 Status: Signed Canoe Inspector Final: 2[place] PRESCRIPTION REFILL Please provide enough refills to last until patient's next visit. Comment:- Pharmacy Seq #:-[phone] Pharmacy Name:-[facility] Street or City:-[place] Clinician Name:-Antony Drug Name/Strength:-Lo/Ovral-28 Sig:-Take 1 tab daily. Quantity:-28 Last Fill:-08/01/05 Created on 12Aug2005 1:05pm by PETTY ARTEAGA J On 13Aug2005 11:12am LINDSEY HELM wrote: Rx faxed. AL WORK ASSOCIATE documented in this encounter Plan of Treatment Upcoming Encounters Date Type Specialty Care Team Description 01/02/2022 Appointment Radiology PN Kian Winters MBBS 39[address] [facility] [place] N [address] (Wo rk) 01/04/2022 Appointment Oncology Kian Winters MBBS 39[address] [facility] [place] N [address] (Wo rk) documented as of this encounter Visit Diagnoses Not on filedocumented in this encounter Care Teams Sql Server Dba Developer Relationship Specialty Start Date End Date Theresa Hardy MD PCP - General 05/22/10 03/15/21 [address] [place] [facility] [address] documented as of this encounter
--- OUTSIDE RECORDS SUMMARY | 2021-11-26 15:08 | XMS_ITS | Encounter Summary ---
:1970 [facility] Address [address] [address] Care Team Providers Name Role Phone Theresa Hardy MD Primary Care Provider Encounter Details Date Type Department Care Team Description 12/25/2004 Nursing Visit [facility] [place] [address] [facility] [address] [place], [place] [address] [place] [address] [phone] Social History Tobacco Use Types Packs/Day [...] at Date Recorded Female 02/21/2021 8:36 PM CONTROL OFFICER documented as of this encounter Plan of Treatment Upcoming Encounters Date Type Specialty Care Team Description 01/02/2022 Appointment Radiology PN Kian Winters, JUANCARLOS 0713 [facility] [place] [address] [address] (Wo rk) 01/04/2022 Appointment Oncology Kian Winters MBBS [address] [facility] [address] [place] N [address] (Wo rk) documented as of this encounter Visit Diagnoses Not on filedocumented in this encounter Care Teams Chef Kitchen Manager Relationship Specialty Start Date End Date Theresa Hardy MD PCP - General 05/22/10 03/15/21 [address] [place] [facility] [address] documented as of this encounter
--- OUTSIDE RECORDS SUMMARY | 2021-11-26 15:08 | XMS_ITS | Encounter Summary ---
:1970 [facility] Address [address] [address] Care Team Providers Name Role Phone Theresa Hardy MD Primary Care Provider Encounter Details Date Type Department Care Team Description 08/19/2006 Office Visit [facility] Liudmila De Paz, [place]-C [address] [place] [address] [phone] (Wo rk) Social History Tobacco Use Types [...] at Date Recorded Female 02/21/2021 8:36 PM COLLEGE DIRECTOR documented as of this encounter Last Filed [...] Body Mass Index 30.5 03/31/2006 8:58 AM COLLEGE DIRECTOR documented in this encounter Progress Notes Liudmila Beatty PA-C - 08/19/2006 12:01 AM CDT Progress Notes signed by Liudmila Beatty PA-C at 08/25/06 1450 Author: Liudmila Beatty PA-C Service: (none) Author Type: Physician Grizzlyman Filed: 06/08/102019 Note Time: 08/19/06 0001 Status: Signed Bioinformatician: Liudmila Beatty PA-C (Physician Grizzlyman) NAME: MARII JOSÉ MR#: [id number] ACCT: [id number] VISIT: [id number] DICTATING CLINICIAN: MASHA GAMBLE JOB: [id number] LOC: 502 CLINIC PROGRESS NOTE DATE OF [...] normal and if she still has pain. AMS:[id number] C: 08/20/06 16:18 DOCUMENT: [id number] documented in this encounter Plan of Treatment Upcoming Encounters Date Type Specialty Care Team Description 01/02/2022 Appointment Radiology PN Kian Winters MBBS 3931 [facility] [place] [address] (Wo rk) 01/04/2022 Appointment Oncology Kian Winters MBBS 3931 [facility] [place] N [address] (Wo rk) documented as of this encounter Visit Diagnoses Not on filedocumented in this encounter Care Teams Rubber Production Machine Operator Relationship Specialty Start Date End Date Theresa Hardy MD PCP - General 05/22/10 03/15/21 [address] [place] T[facility] Conklin 781517 documented as of this encounter
--- OUTSIDE RECORDS SUMMARY | 2021-11-26 15:08 | XMS_ITS | Encounter Summary ---
:1970 [facility] Address [address] [address] Care Team Providers Name Role Phone Theresa Hardy MD Primary Care Provider Encounter Details Date Type Department Care Team Description 08/20/2006 PN Conversion Only BETHEL CONVERSIO Liudmila Alba, PA-C [address] [address] [place] [address] (Wo rk) Social History Tobacco Use Types [...] at Date Recorded Female 02/21/2021 8:36 PM SOUND EFFECTS SUPERVISOR documented as of this encounter Plan of Treatment Upcoming Encounters Date Type Specialty Care Team Description 01/02/2022 Appointment Radiology PN Kian Winters, JUANCARLOS 8850 [facility] N [address] (Wo rk) 01/04/2022 Appointment Oncology Kian Winters Shel[place], JUANCARLOS 9297 [facility], N [address] (Wo rk) documented as of this encounter [...] NEGATIVE HP CONVERSION Stl Comment: Performed at [employer] [address] [place] [phone] Specimen (Source) Anatomical Collection Method Collection Time Re ceived Time Location / / Volume Laterality 08/20/2006 4:00 PM CDT Liudmila Beatty PA-C LAB_1 Performing Organization Address City/State/ZIP Code Phon e Number HP CONVERSION documented in this encounter Visit Diagnoses Not on filedocumented in this encounter Care Teams Wall Steamer Relationship Specialty Start Date End Date Theresa Hardy MD PCP - General 05/22/10 03/15/21 [address] [place] T[facility] Conklin [phone] documented as of this encounter
--- OUTSIDE RECORDS SUMMARY | 2021-11-26 15:08 | XMS_ITS | Encounter Summary ---
:1970 [facility] Address [address] [address] Care Team Providers Name Role Phone Theresa Hardy MD Primary Care Provider Encounter Details Date Type Department Care Team Description 11/20/2005 Nursing Visit [facility] [place] [address] [facility] [address] [place], [place] [address] [place] [address] [phone] Social History Tobacco Use Types Packs/Day [...] at Date Recorded Female 02/21/2021 8:36 PM SEWER documented as of this encounter Plan of Treatment Upcoming Encounters Date Type Specialty Care Team Description 01/02/2022 Appointment Radiology PN Kian Winters, JUANCARLOS 5147 [facility] [place] N [address] (Wo rk) 01/04/2022 Appointment Oncology Kian Winters MBBS [address] [facility] [address] [place] N [address] (Wo rk) documented as of this encounter Visit Diagnoses Not on filedocumented in this encounter Care Teams Control Specialist Relationship Specialty Start Date End Date Theresa Hardy MD PCP - General 05/22/10 03/15/21 [address] [place] [facility] [address] documented as of this encounter
--- OUTSIDE RECORDS SUMMARY | 2021-11-26 15:08 | XMS_ITS | Encounter Summary ---
:1970 Author Organization [facility] Address [address] [place] [address] Care Team Providers Name Role Phone Theresa Hardy MD Primary Care Provider Reason for Visit Reason Comments Other Encounter Details Date Type Department Care Team Description 12/31/2004 Telephone [facility], Message Other [address] [place], [place] [address] Social History Tobacco Use Types [...] at Date Recorded Female 02/21/2021 8:36 PM CLAIMS INVESTIGATOR documented as of this encounter Progress Notes Edna Olivia - 12/31/2004 9:07 AM CST Phone Note filed by Edna Olivia LPN at 06/04/102213 Author: Edna Olivia LPN Service: (none) Author Type: (none) Filed: 06/04/102213 Note Time: 12/31/04906 Status: Signed Recovery Operator: Imr Conversion Phone Care Triage Note [facility] Vomiting and Diarrhea Nursing Reference - Adult [...] dry, do not wipe. Information given per: [facility] Vomiting/Diarrhea Nursing Reference Advised to callback if [...] HOURS Pt was scheduled with at the [facility] for today at 2:30pm. Patient/Caller agrees with plan and denies additional questions. Denies any emergent, urgent symptoms Data collected by SALES ANALYST, Clinician sign off needed. Created on 31Dec2004 9:08am by EDNA OLIVIA On 31Dec2004 3:14pm GODWIN CARDONA wrote: Review of the audit trail shows that the appt. is cancelled. Acknowledged by GODWIN CARDONA on 3:14pm MS INVESTIGATOR documented in this encounter Plan of Treatment Upcoming Encounters Date Type Specialty Care Team Description 01/02/2022 Appointment Radiology PN Kian Winters, JUANCARLOS 39[address] [facility] N [address] (Wo rk) 01/04/2022 Appointment Oncology Kian Winters MBBS 3931 [facility], N [address] (Wo rk) documented as of this encounter Visit Diagnoses Not on filedocumented in this encounter Care Teams Brand Director Relationship Specialty Start Date End Date Theresa Hardy MD PCP - General 05/22/10 03/15/21 [address] [place] T[facility] Conklin [phone] documented as of this encounter
--- OUTSIDE RECORDS SUMMARY | 2021-11-26 15:08 | XMS_ITS | Encounter Summary ---
:[address] [facility] [email or web address] Address [address] [address] Care Team Providers Name Role Phone Mariaelena Hardy MD Primary Care Provider Encounter Details Date Type Department Care Team Description 03/31/2006 Office [place] [facility] [place] [address] [place] [address] [place], [place] [address] (Wo rk) Social History Tobacco Use Types [...] at Date Recorded Female 02/21/2021 8:36 PM MECHANICAL ENGINEERING DRAFTSPERSON documented as of this encounter Last Filed Vital Signs Vital Sign Reading Time Taken Comments Blood Pressure 110/68 03/31/2006 8:58 AM MECHANICAL ENGINEERING DRAFTSPERSON Pulse 70 03/31/2006 8:58 AM MECHANICAL ENGINEERING DRAFTSPERSON Temperature - - Respiratory Rate - - Oxygen Saturation - - Inhaled Oxygen Concentration - - Weight 66.7 kg (146 lb 15.7 oz) 03/31/2006 8:58 AM C: 6 6.7kg MECHANICAL ENGINEERING DRAFTSPERSON Height 149.9 cm (4' 11) 03/31/2006 8:58 AM C: 149.9cm MECHANICAL ENGINEERING DRAFTSPERSON Body Mass Index 29.69 03/31/2006 8:58 AM MECHANICAL ENGINEERING DRAFTSPERSON documented in this encounter Progress Notes Mariaelena Hardy MD - 03/31/2006 12:01 AM CST H&P signed by Mariaelena Hardy MD at 04/20/06 1939 Author: Mariaelena Hardy MD Service: (none) Author Type: Physician Filed: 06/08/10 1729 Note Time: 03/31/06 0001 Status: Signed Automobile Lights Assembler: Mariaelena Hardy MD (Physician) NAME: MARII JOSÉ MR#: [id number] ACCT: [id number] VISIT: [id number] DICTATING CLINICIAN: MARIAELENA HARDY MD JOB: [id number] LOC: 502 CLINIC PHYSICAL DATE OF VISIT: [...] 2. Migraine headaches, stable. PLAN: See assessment. SS:[id number] C: 04/01/06 18:04 DOCUMENT: [id number] ANICAL ENGINEERING DRAFTSPERSON documented in this encounter Plan of Treatment Upcoming Encounters Date Type Specialty Care Team Description 01/02/2022 Appointment Radiology PN Kian Winters MBBS [address] [place] [address] (Opal osman) 01/04/2022 Appointment Oncology Kian Winters MBBS [address] [place] [address] em[address] Domitila [place] N [address] (Opal osman) documented as of this encounter Visit Diagnoses Not on filedocumented in this encounter Care Teams Project Management Analyst Relationship Specialty Start Date End Date Mariaelena Hardy MD PCP - General 05/22/10 03/15/21 [address] [place] [address] documented as of this encounter
--- OUTSIDE RECORDS SUMMARY | 2021-11-26 15:08 | XMS_ITS | Encounter Summary ---
:1970 Author Organization [facility] Address [address] [address] Care Team Providers Name Role Phone Theresa Hardy MD Primary Care Provider Encounter Details Date Type Department Care Team Description 03/31/2006 PN Conversion Only SORIN CONVERSIO N Theresa Hardy, [address] [facility] [place] [address] [facility] [address] [place] [address] (Wo rk) Social History Tobacco [...] at Date Recorded Female 02/21/2021 8:36 PM LUGGER documented as of this encounter Plan of Treatment Upcoming Encounters Date Type Specialty Care Team Description 01/02/2022 Appointment Radiology PN Kian Winters, JUANCARLOS 49[address] [facility] N [address] (Wo rk) 01/04/2022 Appointment Oncology Kian Winters, ENRIQUEBS 3931 [facility] [place], N [address] (Wo rk) documented as of this encounter Procedures Procedure Name Priority Date/Time Associated Comments Diagnosis GLUCOSE Routine 03/31/2006 9:50 AM Results f or this LUGGER procedure are i n the results section. LIPID PANEL AND Routine 03/31/2006 9:50 AM Result s for this DIRECT LDL(IF LUGGER procedure are in NEEDED) the results section. HGB A1C Routine 03/31/2006 9:50 AM Results f or this LUGGER procedure are i n the results section. ANATOMICAL PATH Routine 03/31/2006 7:31 AM Result s for this LIQUID BASED LUGGER procedure are i n the results section. documented in this encounter Results Glucose (03/31/2006 9:50 AM LUGGER) athologist Signature Length Of Fast 12.0 Hours HP CONVERSION Lab Glucose 90 60 - 100 HP CONVERSION mg/dL Specimen (Source) Anatomical Collection Method Collection Time Re ceived Time Location / / Volume Laterality 03/31/2006 9:50 AM LUGGER Theresa Hardy MD LAB_1 Performing Organization Address City/State/ZIP Code Phon e Number HP CONVERSION Lipid Panel and Direct LDL(If Needed) (03/31/2006 9:50 AM LUGGER) Patholo gist Method Time Signature Length Of Fast [...] / / Volume Laterality 03/31/2006 9:50 AM LUGGER Theresa Hardy MD LAB_1 Performing Organization Address City/State/ZIP Code Phon e Number HP CONVERSION Hgb A1c (03/31/2006 9:50 AM LUGGER) athologist Signature HGB A1C 5.4 <6.0 % HP CONVERSION Specimen (Source) Anatomical Collection Method Collection Time Re ceived Time Location / / Volume Laterality 03/31/2006 9:50 AM LUGGER Theresa Hardy MD LAB_1 Performing Organization Address City/State/ZIP Code Phon e Number HP CONVERSION Pap Smear (03/31/2006 7:31 AM LUGGER) [facility] Method Time Signature PAP Smear SEE TEXT No normal HP CONVERSION Liquid Based range Comment: Patient: MARII JOSÉ ? CERVICAL CYTOLOGY REPORT Pathology # ??[id number] ?Date Obtained: ? Date Received: CYTOLOGIC IMPRESSION: Negative for intraepithelial lesion or m alignancy. Verified 04/02/06 by: ??MB ? (electronic signature) ? AAKASH TIONAL DATA LMP: CLINICAL HIST LIQUID BASED PAP CERVICAL SPECIMEN ADEQUACY: ?? Satisfactory. ENDOCERVICAL CELLS: ??Present. Specimen (Source) Anatomical Collection Method Collection Time Re ceived Time Location / / Volume Laterality 03/31/2006 7:31 AM LUGGER Theresa Hardy MD LAB_1 Performing Organization Address City/State/ZIP Code Phon e Number HP CONVERSION documented in this encounter Visit Diagnoses Not on filedocumented in this encounter Care Teams Parcel Post Officer Relationship Specialty Start Date End Date Theresa Hardy MD PCP - General 05/22/10 03/15/[address] [place] [address] documented as of this encounter
--- OUTSIDE RECORDS SUMMARY | 2021-11-26 15:08 | XMS_ITS | Encounter Summary ---
:1970 Author Organization [facility] Address [address], [place] [address] Care Team Providers Name Role Phone Theresa Hardy MD Primary Care Provider Encounter Details Date Type Department Care Team Description 03/18/2005 PN Conversion Only SORIN CONVERSIO N Theresa Hardy, [address] [facility] [place] [address] [facility] [place] [address] (Wo rk) Social History Tobacco [...] at Date Recorded Female 02/21/2021 8:36 PM DEPUTY INSURANCE COMMISSIONER documented as of this encounter Plan of Treatment Upcoming Encounters Date Type Specialty Care Team Description 01/02/2022 Appointment Radiology PN Kian Winters, JUANCARLOS [address] [facility] N [address] (Wo rk) 01/04/2022 Appointment Oncology Kian Winters Shelbie, ENRIQUEBS [address] [place] [address] [facility] [place] N [address] (Wo rk) documented as of this encounter Procedures Procedure Name Priority Date/Time Associated Comments Diagnosis ANATOMICAL PATH Routine 03/18/2005 10:52 AM Resul ts for this LIQUID BASED DEPUTY INSURANCE COMMISSIONER procedure are i n the results section. GLUCOSE Routine 03/18/2005 9:40 AM Results f or this DEPUTY INSURANCE COMMISSIONER procedure are i n the results section. CHOLESTEROL, TOTAL Routine 03/18/2005 9:40 AM Res ults for this AND HDL DEPUTY INSURANCE COMMISSIONER procedure are i n the results section. documented in this encounter Results Pap Smear (03/18/2005 10:52 AM DEPUTY INSURANCE COMMISSIONER) [facility] gist Method Time Signature PAP Smear SEE TEXT No normal HP CONVERSION Liquid Based range Comment: Patient: MARII JOSÉ ? CERVICAL CYTOLOGY REPORT Pathology # ??[id number] ?Date Obtained: ? Date Received: CYTOLOGIC IMPRESSION: Negative for intraepithelial lesion or m alignancy. ? AAKASH TIONAL DATA LMP: CLINICAL HIST ?V76.2 LIQUID BASED PAP CERVICAL SPECIMEN ADEQUACY: ?? Satisfactory. ENDOCERVICAL CELLS: ??Present. Verified 03/21/05 by: ??S_V ?(electronic signature) Specimen (Source) Anatomical Collection Method Collection Time Re ceived Time Location / / Volume Laterality 03/18/2005 10:52 AM DEPUTY INSURANCE COMMISSIONER Theresa Hardy MD LAB_1 Performing Organization Address City/[facility]/ZIP Code Phon e Number HP CONVERSION Cholesterol, Total and HDL (03/18/2005 9:40 AM DEPUTY INSURANCE COMMISSIONER) Analysis Performed At Patho logist Time Signature Cholesterol/HDL 3.4 No normal HP CONVERSION Ratio Screen range Cholesterol 175 <200 mg/dL HP CONVERSION HDL Cholesterol 51 40 - 60 HP CONVERSION mg/dL Specimen (Source) Anatomical Collection Method Collection Time Re ceived Time Location / / Volume Laterality 03/18/2005 9:40 AM DEPUTY INSURANCE COMMISSIONER Theresa Hardy MD LAB_1 Performing Organization Address City/[facility] Code Phon e Number HP CONVERSION Glucose (03/18/2005 9:40 AM DEPUTY INSURANCE COMMISSIONER) P athologist Signature Lab Glucose 93 60 - 100 HP CONVERSION mg/dL Specimen (Source) Anatomical Collection Method Collection Time Re ceived Time Location / / Volume Laterality 03/18/2005 9:40 AM DEPUTY INSURANCE COMMISSIONER Theresa Hardy MD LAB_1 Performing Organization Address City/[facility]/ZIP Code Phon e Number HP CONVERSION documented in this encounter Visit Diagnoses Not on filedocumented in this encounter Care Teams Mill And Coal Transport Operator Relationship Specialty Start Date End Date Theresa Hardy MD PCP - General 05/22/10 03/15/21 [address] [place] T[place] [address] documented as of this encounter
--- OUTSIDE RECORDS SUMMARY | 2021-11-26 15:08 | XMS_ITS | Encounter Summary ---
:1970 Author Organization [facility] Address [address] [address] Care Team Providers Name Role Phone Theresa Hardy MD Primary Care Provider Reason for Visit Reason Comments Other Encounter Details Date Type Department Care Team Description 04/18/2006 Telephone [facility] Asa Juan, WILEY Other [address] [place] [address] [place] [address] [phone] (Wo rk) Social History Tobacco Use Types [...] at Date Recorded Female 02/21/2021 8:36 PM SYSTEMS LEAD documented as of this encounter Progress Notes Center, Message - 04/18/2006 11:59 AM CST Phone Note filed by ipsy at 06/05/10 0511 Author: Message Center Service: (none) Author Type: (none) Filed: 06/05/10 7627 Note Time: 04/18/06 1159 Status: Signed Engineering Job Titles: [place] Prescription Refill Please provide enough refills to last until patient's next visit. Comment:- Pharmacy Seq #:-[phone] [facility] Street or City:-[place] Clinician Name:-Domitila Hardy Drug Name/Strength:-Topamax 100MG tab Sig: Dose/Route/Freq:-take one tab twice daily Quantity & Last Fill:-60 03/19/06 Created on 18Apr2006 11:59am by ISRAEL VAZQUEZ On 18Apr2006 12:58pm ASA DOYLE wrote: Rx faxed. Acknowledged by ASA DOYLE on 12:58pm EMS LEAD documented in this encounter Plan of Treatment Upcoming Encounters Date Type Specialty Care Team Description 01/02/2022 Appointment Radiology PN Kian Winters MBBS [address] [facility], N [address] (Wo rk) 01/04/2022 Appointment Oncology Kian Winters MBBS [address] [facility], N [address] (Wo rk) documented as of this encounter Visit Diagnoses Not on filedocumented in this encounter Care Teams Tear Down Man Relationship Specialty Start Date End Date Theresa Hardy MD PCP - General 05/22/10 03/15/21 [address] T[place] [address] documented as of this encounter
--- OUTSIDE RECORDS SUMMARY | 2021-11-26 15:08 | XMS_ITS | Encounter Summary ---
:1970 Author Organization [facility] Address [address] [address] Care Team Providers Name Role Phone Theresa Hardy MD Primary Care Provider Encounter Details Date Type Department Care Team Description 12/21/2004 Office Visit [facility] [place] [address] [address] [place] [address] Social History Tobacco Use Types [...] Date Recorded Female 02/21/2021 8:36 PM DIGITAL PRE PRESS OPERATOR documented as of this encounter Last Filed Vital Signs Vital Sign Reading Time Taken Comments Blood Pressure 145/70 12/21/2004 8:41 AM DIGITAL PRE PRESS OPERATOR Pulse 80 12/21/2004 8:41 AM DIGITAL PRE PRESS OPERATOR Temperature 36.9 ??C (98.4 ??F) 12/21/2004 8:41 AM ORAL C: 3 6.9 C DIGITAL PRE PRESS OPERATOR Respiratory Rate 22 12/21/2004 8:41 AM DIGITAL PRE PRESS OPERATOR Oxygen Saturation 98% 12/21/2004 8:41 AM DIGITAL PRE PRESS OPERATOR Inhaled Oxygen Concentration - - Weight - - Height - - Body Mass Index - - documented in this encounter Progress Notes Chance Martines MD - 12/21/2004 12:01 AM CST Progress Notes signed by Chance Martines MD at 01/18/05 1610 Author: Chance Martines MD Service: (none) Author Type: Physician Filed: 06/08/10 0808 Note Time: 12/21/04 0001 Status: Signed Materials Mgmt Tech: Chance Martines MD (Physician) NAME: MARII JOSÉ MR: [id number] ACCT: [id number] VISIT: [id number] DICTATING CLINICIAN: CHANCE MARTINES MD JOB: [id number] CLINIC PROGRESS NOTE DATE OF VISIT: 12/21/2004 [...] will follow up if that would recur. WDL:[id number] C: 12/21/04 15:47 DOCUMENT: [id number] TAL PRE PRESS OPERATOR documented in this encounter Plan of Treatment Upcoming Encounters Date Type Specialty Care Team Description 01/02/2022 Appointment Radiology PN Kian Wniters, JUANCARLOS [address] [facility] [place] [address] [address] (Wo rk) 01/04/2022 Appointment Oncology Kian Winters MBBS [address] [facility] [place], [place] [address] [address] (Wo rk) documented as of this encounter Visit Diagnoses Not on filedocumented in this encounter Care Teams Blood Bank Specialist Relationship Specialty Start Date End Date Theresa Hardy MD PCP - General 05/22/10 03/15/21 [address] [place] T[place]klin [address] documented as of this encounter
--- OUTSIDE RECORDS SUMMARY | 2021-11-26 15:08 | XMS_ITS | Encounter Summary ---
:1970 Author [facility] Address [address] [address] Care Team Providers Name Role Phone Theresa Hardy MD Primary Care Provider Encounter Details Date Type Department Care Team Description 10/08/2004 PN Conversion Only [facility] [address] [place] [address] Social History Tobacco Use Types Packs/Day Years [...] Date Recorded Female 02/21/2021 8:36 PM HOSPICE HOME CARE COORDINATOR documented as of this encounter Plan of Treatment Upcoming Encounters Date Type Specialty Care Team Description 01/02/2022 Appointment Radiology PN Kian Winters MBBS [address] [facility] [place] N [address] (Wo dawson) 01/04/2022 Appointment Oncology Kian Winters MBBS [address] [facility] [place] [address] [address] (Wo rk) documented as of this encounter [...] GI with delaney l small bowel follow-through. 145644/pb Dictating MARQUIS ZAMBRANO RADIOLOGIST Procedure Note Marquis [...] upper GI with normal small bowel follow-through. 623480/pb Dictating MARQUIS ZAMBRANO RADIOLOGIST Laureen Bojorquez MD RAD [place] documented in this encounter Visit Diagnoses Not on filedocumented in this encounter Care Teams Assistant Professor Of Business Relationship Specialty Start Date End Date Theresa Hardy MD PCP - General 05/22/10 03/15/21 [address] [place] TIRSO Conklin 843007 documented as of this encounter
--- OUTSIDE RECORDS SUMMARY | 2021-11-26 15:08 | XMS_ITS | Encounter Summary ---
:1970 Author Organization [facility] Address [address] [address] Care Team Providers Name Role Phone Theresa Hardy MD Primary Care Provider Encounter Details Date Type Department Care Team Description 07/03/2006 Office Visit [facility] Liudmila De Paz, PA-C [address] [place] [address] [phone] (Wo rk) Social History Tobacco Use Types [...] at Date Recorded Female 02/21/2021 8:36 PM JET HANDLER documented as of this encounter Last Filed [...] Body Mass Index 30.29 03/31/2006 8:58 AM JET HANDLER documented in this encounter Progress Notes Liudmila Beatty PA-C - 07/03/2006 12:01 AM CDT Progress Notes signed by Liudmila Beatty PA-C at 07/10/06 1259 Author: Liudmila Beatty PA-C Service: (none) Author Type: Physician Bankman Filed: 06/08/10 1927 Note Time: 07/03/06 0001 Status: Signed Process Control Engineer: Liudmila Beatty PA-C (Physician Bankman) NAME: MARII JOSÉ MR#: [id number] ACCT: [id number] VISIT: [id number] DICTATING CLINICIAN: MASHA GAMBLE JOB: [id number] LOC: 502 CLINIC PROGRESS NOTE DATE OF VISIT: 07/03/2006 SUBJECTIVE: Marii is a 36-year-old female who comes to the clinic today concerned about vaginal itching that she has had for about 1-2 weeks. She used some [id number] yeast infection medicine a couple of days [...] up if symptoms are not getting better. AMS:[id number] C: 07/04/06 14:46 DOCUMENT: [id number] documented in this encounter Plan of Treatment Upcoming Encounters Date Type Specialty Care Team Description 01/02/2022 Appointment Radiology PN Kian Winters MBBS 39[address] [facility] [place] [address] [address] (Wo rk) 01/04/2022 Appointment Oncology Kian Winters MBBS [address] [facility] [place] [address] [address] (Wo rk) documented as of this encounter Visit Diagnoses Not on filedocumented in this encounter Care Teams Puttying And Calking Supervisor Relationship Specialty Start Date End Date Theresa Hardy MD PCP - General 05/22/10 03/15/21 [address] [place] T[place] [address] documented as of this encounter
--- OUTSIDE RECORDS SUMMARY | 2021-11-26 15:08 | XMS_ITS | Encounter Summary ---
:1970 Author Organization [facility] Address [address] [address] Care Team Providers Name Role Phone Theresa Hardy MD Primary Care Provider Reason for Visit Reason Comments Other Encounter Details Date Type Department Care Team Description 03/28/2006 Telephone [facility], Message Other [address] [place] [address] Social History Tobacco Use Types [...] at Date Recorded Female 02/21/2021 8:[address] FREIGHT CONDUCTOR documented as of this encounter Progress Notes Center, Message - 03/28/2006 9:30 AM CST Phone Note filed by [employer] at 06/05/10 5685 Author: [employer] Service: (none) Author Type: (none) Filed: 06/05/10 1542 Note Time: 03/28/06929 Status: Signed Signal Supervisor: [employer] Prescription Refill Please provide enough refills to last until patient's next visit. Comment:-Appt Mar 31 Pharmacy Seq #:-[phone] [facility] Street or City:-[place] Clinician Name:-Domitila Hardy Drug Name/Strength:-Cryselle-28 tabs Sig: Dose/Route/Freq:-take one tab daily Quantity & Last Fill:-28 02/28/06 Created on 28Mar2006 9:30am by ISRAEL VAZQUEZ On 28Mar2006 11:05am LINDSEY HELM wrote: Renewed medication per medication refill protocol. FREIGHT CONDUCTOR documented in this encounter Plan of Treatment Upcoming Encounters Date Type Specialty Care Team Description 01/02/2022 Appointment Radiology PN Kian Winters MBBS [address] [place] [facility] [place] [address] [address] (Wo rk) 01/04/2022 Appointment Oncology Kian Winters MBBS [address] [place] [facility] [place] [address] [address] (Wo rk) documented as of this encounter Visit Diagnoses Not on filedocumented in this encounter Care Teams Turbinated Bone Grinder Relationship Specialty Start Date End Date Theresa Hardy MD PCP - General 05/22/10 03/15/21 [address] [place] T[place] Conklin [address] documented as of this encounter
--- OUTSIDE RECORDS SUMMARY | 2021-11-26 15:08 | XMS_ITS | Encounter Summary ---
:1970 Author Organization [facility] Address [address] [address] Care Team Providers Name Role Phone Theresa Hardy MD Primary Care Provider Encounter Details Date Type Department Care Team Description 09/01/2006 PN Conversion Only [facility] [address] [place] [address] Social History Tobacco Use Types Packs/Day Years [...] at Date Recorded Female 02/21/2021 8:36 PM CERTIFIED PHARMACIST ASSISTANT documented as of this encounter Plan of Treatment Upcoming Encounters Date Type Specialty Care Team Description 01/02/2022 Appointment Radiology PN Kian Winters MBBS 39[address] [facility] [place] [address] N [address] (Wo dawson) 01/04/2022 Appointment Oncology Kian Winters MBBS [address] [facility] [place] [address] [address] (Wo rk) documented as of this encounter [...] mm right intrarenal calculus, but no obstruction. 325167/dkd Dictating KIRILL GASTELUM T RADIOLOGIST Narrative 09/01/2006 9:06 AM CDT Pancreatic [...] mm right intrarenal calculus, but no obstruction. 500496/dkd Dictating KIRILL GASTELUM RADIOLOGIST Liudmila Beatty PA-C RAD US documented in this encounter Visit Diagnoses Not on filedocumented in this encounter Care Teams Castables Worker Relationship Specialty Start Date End Date Theresa Hardy MD PCP - General 05/22/10 03/15/21 [address] [place] TIRSO Conklin [address] documented as of this encounter
--- OUTSIDE RECORDS SUMMARY | 2021-11-26 15:08 | XMS_ITS | Encounter Summary ---
:1970 Author [facility] Address [address] [address] Care Team Providers Name Role Phone Theresa Hardy MD Primary Care Provider Encounter Details Date Type Department Care Team Description 03/10/2006 Office Visit [facility] Erik Winters [address] [place] [address] Social History Tobacco Use Types [...] at Date Recorded Female 02/21/2021 8:36 PM MOBILE PAINT SPECIALIST documented as of this encounter Plan of Treatment Upcoming Encounters Date Type Specialty Care Team Description 01/02/2022 Appointment Radiology PN Kina Winters MBBS 39[address] [facility] [place] [address] (Wo rk) 01/04/2022 Appointment Oncology Kian Winters MBBS [address] [facility] [place] [address] (Wo rk) documented as of this encounter Visit Diagnoses Not on filedocumented in this encounter Care Teams Survey Research Manager Relationship Specialty Start Date End Date Theresa Hardy MD PCP - General 05/22/10 03/15/21 [address] [place] TIRSO Cnoklin [address] documented as of this encounter
--- OUTSIDE RECORDS SUMMARY | 2021-11-26 15:08 | XMS_ITS | Encounter Summary ---
:1970 Author Organization [facility] Address [address], [place] [address] Care Team Providers Name Role Phone Mariaelena Hardy MD Primary Care Provider Reason for Visit Reason Comments Other Encounter Details Date Type Department Care Team Description 08/12/2005 Telephone [facility] Mariaelena Juan MD Other [address] [place] [address] [place] [address] (Wo rk) Social History Tobacco [...] Date Recorded Female 02/21/2021 8:36 PM HEALTH CARE LIAISON documented as of this encounter Progress Notes Center, Message - 08/12/2005 2:43 PM CDT Phone Note filed by [email or web address] at 06/05/10 0542 Author: Message Center Service: (none) Author Type: (none) Filed: 06/05/10 0542 Note Time: 08/12/05 1443 Status: Signed Tax Staff Accountant: Nate Pisek PRESCRIPTION REFILL Please provide enough refills to last until patient's next visit. Comment:- Pharmacy Seq #:-[phone] [facility] Street or City:-[place] Clinician Name:-Domitila Hardy Drug Name/Strength:-Topamax 100MG tab Sig:-take one tab twice daily Quantity:-60 Last Fill:-07/03/05 Created on 12Aug2005 2:43pm by ISRAEL VAZQUEZ On 12Aug2005 2:54pm MARIAELENA HARDY wrote: faxed. Acknowledged by MARIAELENA HARDY on 2:54pm TH CARE LIAISON documented in this encounter Plan of Treatment Upcoming Encounters Date Type Specialty Care Team Description 01/02/2022 Appointment Radiology PN Kian Winters MBBS 39[address] [facility], N [address] (Wo rk) 01/04/2022 Appointment Oncology Kian Winters MBBS [address] [facility], N [address] (Wo rk) documented as of this encounter Visit Diagnoses Not on filedocumented in this encounter Care Teams Belt Press Operator Relationship Specialty Start Date End Date Mariaelena Hardy MD PCP - General 05/22/10 03/15/21 [address] [place] T[place] Conk[place] [address] documented as of this encounter
--- OUTSIDE RECORDS SUMMARY | 2021-11-26 15:08 | XMS_ITS | Encounter Summary ---
:1970 Author Organization [facility] Address [address] [address] Care Team Providers Name Role Phone Theresa Hardy MD Primary Care Provider Encounter Details Date Type Department Care Team Description 01/04/2005 [place] [address] [facility] [address] [place] [address] [place], [place] [address] (Wo rk) Social History Tobacco Use Types [...] at Date Recorded Female 02/21/2021 8:36 PM SHIPPING AND RECEIVING documented as of this encounter Plan of Treatment Upcoming Encounters Date Type Specialty Care Team Description 01/02/2022 Appointment Radiology PN Kian Winters MBBS [address] [facility] [place] [address] [address] (Wo rk) 01/04/2022 Appointment Oncology Kian Winters Shelbie, JUANCARLOS [address] [facility], N [address] (Wo rk) documented as of this encounter Procedures Procedure Name Priority Date/Time Associated Comments Diagnosis ELECTROLYTES (NA, K, Routine 01/04/2005 12:32 Res ults for this CL, BICARB) PM SHIPPING AND RECEIVING procedure are i n the results section. CREATININE / GFR Routine 01/04/2005 12:32 Results for this PM SHIPPING AND RECEIVING procedure are i n the results section. COMPLETE BLOOD Routine 01/04/2005 12:32 Results f or this COUNT-W/DIFF PM SHIPPING AND RECEIVING procedure are i n the results section. BUN Routine 01/04/2005 12:32 Results for this PM SHIPPING AND RECEIVING procedure are i n the results section. documented in this encounter Results Complete Blood Count-W/Diff (01/04/2005 12:32 PM SHIPPING AND RECEIVING) [facility] gist Method Time Signature White Blood Cell [...] - HP CONVERSION Hemoglobin Conc 36.5 gm/dL Radley RDW 11.8 11.0 - HP CONVERSION 15.0 [...] / / Volume Laterality 01/04/2005 12:32 PM SHIPPING AND RECEIVING Ander Thurman Robyn CASTRO LAB_1 Performing Organization Address City/[facility]/ZIP Code Phon e Number HP CONVERSION BUN (01/04/2005 12:32 PM SHIPPING AND RECEIVING) athologist Signature Blood Urea 9 5 - 26 HP CONVERSION Nitrogen mg/dL Specimen (Source) Anatomical Collection Method Collection Time Re ceived Time Location / / Volume Laterality 01/04/2005 12:32 PM SHIPPING AND RECEIVING Ander Thurman Robyn CASTRO LAB_1 Performing Organization Address City/[facility] Code Phon e Number HP CONVERSION Creatinine / GFR (01/04/2005 12:32 PM SHIPPING AND RECEIVING) athologist Signature Creatinine 1.0 0.5 - 1.5 HP CONVERSION Serum mg/dL Specimen (Source) Anatomical Collection Method Collection Time Re ceived Time Location / / Volume Laterality 01/04/2005 12:32 PM SHIPPING AND RECEIVING Ander Thurman Robyn CASTRO LAB_1 Performing Organization Address [facility] Phon e Number HP CONVERSION (ABNORMAL) Electrolytes (NA, K, CL, Bicarb) (01/04/2005 12:32 PM SHIPPING AND RECEIVING) athologist Signature Sodium 145 137 - 147 HP CONVERSION meq/L Potassium 3.6 3.5 - 5.2 HP CONVERSION meq/L Chloride 112 (H) 98 - 110 HP CONVERSION meq/L Bicarbonate 22 (L) 23 - 33 HP CONVERSION mmol/L Specimen (Source) Anatomical Collection Method Collection Time Re ceived Time Location / / Volume Laterality 01/04/2005 12:32 PM SHIPPING AND RECEIVING Ander Thurman Robyn CASTRO LAB_1 Performing Organization Address City/[facility] Code Phon e Number HP CONVERSION documented in this encounter Visit Diagnoses Not on filedocumented in this encounter Care Teams Retirement Actuary Relationship Specialty Start Date End Date Theresa Hardy MD PCP - General 05/22/10 03/15/21 [address] [place] TIRSO Conklin [address] documented as of this encounter
--- OUTSIDE RECORDS SUMMARY | 2021-11-26 15:08 | XMS_ITS | Encounter Summary ---
:1970 Author [facility] Address [address] [address] Care Team Providers Name Role Phone Theresa Hardy MD Primary Care Provider Encounter Details Date Type Department Care Team Description 07/03/2006 PN Conversion Only ELKWOOD CONVERSIO Liudmila Alba, PA-C [address] [address] [place] [address] (Wo rk) Social History Tobacco [...] at Date Recorded Female 02/21/2021 8:36 PM SUPERVISOR CALIBRATION documented as of this encounter Plan of Treatment Upcoming Encounters Date Type Specialty Care Team Description 01/02/2022 Appointment Radiology PN Kian Winters, JUANCARLOS [address] [facility] N [address] (Wo rk) 01/04/2022 Appointment Oncology Kian Winters Shel[place], JUANCARLOS [address] [place] [facility] [place] N [phone] (Wo rk) documented as of this encounter Procedures Procedure Name Priority Date/Time Associated Diagnosis Comme nts WET PREP Routine 07/03/2006 1:22 PM Results f or this CDT procedure are i n the results section . documented in this encounter Results Wet Prep (07/03/2006 1:22 PM CDT) P athologist Signature Wet Prep SEE TEXT HP CONVERSION Comment: Patient: MARII JOSÉ Wet Prep @ ?Collected: ??[id number] ??1322 Source: Vaginal ? Processed: ??[id number] ??1322 ? V Final Report ------ Few WBCs seen Many epithelial cells seen No Trichomonas seen No yeast seen No clue cells seen @ = WET PREP Performed at ??[address] [place], [place] ??[address] Specimen (Source) Anatomical Collection Method Collection Time Re ceived Time Location / / Volume Laterality 07/03/2006 1:22 PM CDT Liudmila Beatty PA-C LAB_1 Performing Organization Address City/State/ZIP Code Phon e Number HP CONVERSION documented in this encounter Visit Diagnoses Not on filedocumented in this encounter Care Teams Senior Online Marketing Manager Relationship Specialty Start Date End Date Hardy, Theresa, MD PCP - General 05/22/10 03/15/21 [address] [place] [facility] [address] documented as of this encounter
--- OUTSIDE RECORDS SUMMARY | 2021-11-26 15:08 | XMS_ITS | Encounter Summary ---
:1970 Author Organization [facility] Address [address], [place] [address] Care Team Providers Name Role Phone Theresa Hardy MD Primary Care Provider Reason for Visit Reason Comments Other Encounter Details Date Type Department Care Team Description 04/23/[address] [facility], Message Other [address] [place] [address] Social History Tobacco Use Types [...] at Date Recorded Female 02/21/2021 8:36 PM DELI MANAGER documented as of this encounter Progress Notes Center, Message - 04/23/2006 10:52 AM CST Phone Note filed by [employer] at 06/05/101708 Author: [employer] Service: (none) Author Type: (none) Filed: 06/05/101708 Note Time: 04/23/06 1052 Status: Signed Pumper Gauger: [employer] Prescription Refill Please provide enough refills to last until patient's next visit. Comment:- Pharmacy Seq #:-[phone] [facility] Street or City:-[place] Clinician Name:-Antony Drug Name/Strength:-Cryselle-28 tabs. Sig: Dose/Route/Freq:-Take 1 tab daily. Quantity & Last Fill:-28 03/28/06 Created on 23Apr2006 10:52am by PETTY ARTEAGA J On 23Apr2006 3:10pm LINDSEY HELM wrote: Renewed medication per medication refill protocol. MANAGER documented in this encounter Plan of Treatment Upcoming Encounters Date Type Specialty Care Team Description 01/02/2022 Appointment Radiology PN Kian Winters, JUANCARLOS [address] [place] [facility] [place] N [address] (Wo rk) 01/04/2022 Appointment Oncology Kian Winters MBBS [address] [place] [facility] [place] N [address] (Wo rk) documented as of this encounter Visit Diagnoses Not on filedocumented in this encounter Care Teams Grill Associate Relationship Specialty Start Date End Date Theresa Hardy MD PCP - General 05/22/10 03/15/21 [address] [place] [facility] [place] [address] documented as of this encounter
--- OUTSIDE RECORDS SUMMARY | 2021-11-26 15:08 | XMS_ITS | Encounter Summary ---
:1970 Author Organization [facility] Address [address] [address] Care Team Providers Name Role Phone Theresa Hardy MD Primary Care Provider Encounter Details Date Type Department Care Team Description 01/04/2005 Office Visit [facility] Donavan Nance MD [facility] [address] [facility] [address] [place] [id number] [place] [address] [phone] Social History Tobacco Use Types Packs/Day Years [...] at Date Recorded Female 02/21/2021 8:36 PM COFFEE SHOP AIDE documented as of this encounter Last Filed Vital Signs Vital Sign Reading Time Taken Comments Blood Pressure 110/78 01/04/2005 11:52 AM COFFEE SHOP AIDE Pulse 70 01/04/2005 11:52 AM COFFEE SHOP AIDE Temperature - - Respiratory Rate - - Oxygen Saturation - - Inhaled Oxygen Concentration - - Weight 69.3 kg (152 lb 12.5 oz) 01/04/2005 11:52 AM C: 69.3kg COFFEE SHOP AIDE Height - - Body Mass Index - - documented in this encounter Progress Notes Donavan Nance MD - 01/04/2005 12:01 AM CST Progress Notes signed by Donavan Nance MD at 01/13/05 1843 Author: Donavan Nance MD Service: (none) Author Type: Physician Filed: 06/08/10 0825 Note Time: 01/04/052021 Status: Signed Business Architect: Donavan Nance MD (Physician) NAME: MARII JOSÉ MR: [id number] ACCT: [id number] VISIT: [id number] DICTATING CLINICIAN: DONAVAN NANCE MD JOB: [id number] CLINIC PROGRESS NOTE DATE OF VISIT: 01/04/2005 SUBJECTIVE: : 1970. This is a new patient to internal medicine. She is here to followup recent emergency room visit at [facility]. She was seen there 12/27/04. We tried [...] colitis. PLAN: I discussed her case with cyber systems operations specialist, Dr. Sharma. Since the diarrhea has not [...] and raw vegetables until she feels better. SHN:[id number] C: 01/05/05 05:46 DOCUMENT: [id number] EE SHOP AIDE documented in this encounter Plan of Treatment Upcoming Encounters Date Type Specialty Care Team Description 01/02/2022 Appointment Radiology PN Kian Winters MBBS [address] [facility], N [address] (Wo rk) 01/04/2022 Appointment Oncology Kian Winters MBBS [address] [facility], N [address] (Wo rk) documented as of this encounter Visit Diagnoses Not on filedocumented in this encounter Care Teams Management Associate Relationship Specialty Start Date End Date Theresa Hardy MD PCP - General 05/22/10 03/15/21 [address] [place] [facility] [place] [address] documented as of this encounter
--- OUTSIDE RECORDS SUMMARY | 2021-11-26 15:08 | XMS_ITS | Encounter Summary ---
:1970 Author Organization [facility] Address [address] [address] Care Team Providers Name Role Phone Mariaelena Hardy MD Primary Care Provider Reason for Visit Reason Comments Other Encounter Details Date Type Department Care Team Description 03/31/2006 Telephone [facility] Mariaelena Juan MD Other [address] [place] [address] [place], [place] [address] (Wo rk) Social History Tobacco Use Types [...] at Date Recorded Female 02/21/2021 8:36 PM CREDENTIALING COORDINATOR documented as of this encounter Progress Notes Center, Message - 03/31/2006 12:50 PM CST Phone Note filed by nprogress at 06/05/10 3746 Author: Message Center Service: (none) Author Type: (none) Filed: 06/05/10 1551 Note Time: 03/31/06 1250 Status: Signed Suction Drum Drier Operator: Message [place] MESSAGE TO CARE TEAM NAME OF CALLER:Fifi Kasper NAME OF CLINICIAN: Dr Hardy MESSAGE:I saw Dr Hardy today and she said she would fax my three perscriptions in. [facility] [place] only received two of the three. They said they did not receive the rx for the Levsin .125 mg. Could someone refax this one for me? PHARMACY NAME: [facility] PHONE #: [phone] CALL BACK PHONE #:[phone] BEST TIME TO CALL BACK:anytime Is it OK to leave detailed message on Auto [employer]? Created on 31Mar2006 12:50pm by ESTEBAN ANDERSON On 31Mar2006 1:58pm MARIAELENA HARDY wrote: faxed. Acknowledged by MARIAELENA HARDY on 1:58pm ENTIALING COORDINATOR documented in this encounter Plan of Treatment Upcoming Encounters Date Type Specialty Care Team Description 01/02/2022 Appointment Radiology PN Kian Winters, JUANCARLOS [address] [place] [address] [facility] [place], [place] [address] [address] (Wo rk) 01/04/2022 Appointment Oncology Kian Winters MBBS [address] [place] [facility] [place] [address] (Wo rk) documented as of this encounter Visit Diagnoses Not on filedocumented in this encounter Care Teams Firefighter Relationship Specialty Start Date End Date Mariaelena Hardy MD PCP - General 05/22/10 03/15/21 [address] [place] [facility] [place] [address] documented as of this encounter
--- OUTSIDE RECORDS SUMMARY | 2021-11-26 15:08 | XMS_ITS | Encounter Summary ---
:1970 Author [facility] Address [address], [place] [address] Care Team Providers Name Role Phone Theresa Hardy MD Primary Care Provider Encounter Details Date Type Department Care Team Description 03/20/2006 Office Visit [facility] Erik Winters [address] [place] [address] Social History Tobacco Use Types [...] at Date Recorded Female 02/21/2021 8:36 PM FURNACE AND WASH EQUIPMENT OPERATOR documented as of this encounter Plan of Treatment Upcoming Encounters Date Type Specialty Care Team Description 01/02/2022 Appointment Radiology PN Kian Winters MBBS 39[address] [facility] [place] N [address] (Wo rk) 01/04/2022 Appointment Oncology Kian Winters MBBS [address] [facility] [place] [address] [address] (Wo rk) documented as of this encounter Visit Diagnoses Not on filedocumented in this encounter Care Teams Road Test Examiner Relationship Specialty Start Date End Date Theresa Hardy MD PCP - General 05/22/10 03/15/21 [address] [place] [facility] [address] documented as of this encounter
--- OUTSIDE RECORDS SUMMARY | 2021-11-26 15:08 | XMS_ITS | Encounter Summary ---
:1970 Author Organization [facility] Address [address], [place] [address] Care Team Providers Name Role Phone Mariaelena Hardy MD Primary Care Provider Reason for Visit Reason Comments Other Encounter Details Date Type Department Care Team Description 06/02/2006 Telephone [facility] Mariaelena Juan MD Other [address] [place] [address] [place], [place] [address] (Wo rk) Social History Tobacco Use Types [...] at Date Recorded Female 02/21/2021 8:36 PM BELT LOOP MACHINE OPERATOR documented as of this encounter Progress Notes Center, Message - 06/02/2006 1:45 PM CDT Phone Note filed by hiogi at 06/05/10 4504 Author: Message Center Service: (none) Author Type: (none) Filed: 06/05/10 1917 Note Time: 06/02/06 1345 Status: Signed Yard Coupler: Message [place] Prescription Refill Please provide enough refills to last until patient's next visit. Comment:- Pharmacy Seq #:-[phone] [facility] Street or City:-[place] Clinician Name:-Domitila Hardy Drug Name/Strength:-Cyclobenzapr 10MG tab Sig: Dose/Route/Freq:-take one tab three times daily as needed Quantity & Last Fill:-30 03/04/06 Created on 02Jun2006 1:45pm by ISRAEL VAZQUEZ On 02Jun2006 2:13pm MARIAELENA HARDY wrote: faxed. Acknowledged by MARIAELENA HARDY on 2:13pm LOOP MACHINE OPERATOR documented in this encounter Plan of Treatment Upcoming Encounters Date Type Specialty Care Team Description 01/02/2022 Appointment Radiology PN Kian Winters MBBS 39[address] [facility], N [address] (Wo rk) 01/04/2022 Appointment Oncology Kian Winters MBBS [address] [facility], N [address] (Wo rk) documented as of this encounter Visit Diagnoses Not on filedocumented in this encounter Care Teams Registered Mail Clerk Relationship Specialty Start Date End Date Mariaelena Hardy MD PCP - General 05/22/10 03/15/21 [address] [place] [facility] [place] [address] documented as of this encounter
--- OUTSIDE RECORDS SUMMARY | 2021-11-26 15:08 | XMS_ITS | Encounter Summary ---
:1970 Author Organization [facility] Address [address], [place] [address] Care Team Providers Name Role Phone Mariaelena Hardy MD Primary Care Provider Reason for Visit Reason Comments Other Encounter Details Date Type Department Care Team Description 12/27/[address] [facility] Mariaelena Juan MD Other [address] [place] [address] [place], [place] [phone] (Wo rk) Social History Tobacco Use Types [...] Date Recorded Female 02/21/2021 8:36 PM SYSTEMS TEST ANALYST documented as of this encounter Progress Notes Guera Tolliver - 12/27/2004 3:59 PM CST Phone Note filed by Guera Tolliver RN at 06/04/10 0543 Author: Guera C Doehlert, RN Service: (none) Author Type: (none) Filed: 06/04/10 2211 Note Time: 12/27/04 1559 Status: Signed Food Quality Technician: Jitendra Edwards Pt. calling with sxs of [...] TOLLIVER Acknowledged by MARIAELENA HARDY on 5:23pm EMS TEST ANALYST documented in this encounter Plan of Treatment Upcoming Encounters Date Type Specialty Care Team Description 01/02/2022 Appointment Radiology PN Kian Winters MBBS [address] [facility], [place] N [address] (Wo rk) 01/04/2022 Appointment Oncology Kian Winters MBBS [address] [facility], [place] N [address] (Wo rk) documented as of this encounter Visit Diagnoses Not on filedocumented in this encounter Care Teams Theatre Arts Professor Relationship Specialty Start Date End Date Mariaelena Hardy MD PCP - General 05/22/10 03/15/21 [address] [place] [facility] [place] [address] documented as of this encounter
--- OUTSIDE RECORDS SUMMARY | 2021-11-26 15:08 | XMS_ITS | Encounter Summary ---
:1970 Author [facility] Address [address], [place] [address] Care Team Providers Name Role Phone Theresa Hardy MD Primary Care Provider Encounter Details Date Type Department Care Team Description 08/19/2006 PN Conversion Only RICHEY CONVERSIO Liudmila Alba, PA-C [address] [address] [place] [address] (Wo rk) Social History Tobacco [...] at Date Recorded Female 02/21/2021 8:36 PM DRUPAL ARCHITECT documented as of this encounter Plan of Treatment Upcoming Encounters Date Type Specialty Care Team Description 01/02/2022 Appointment Radiology PN Kian Winters, JUANCARLOS 18[address] [facility] N [address] (Wo rk) 01/04/2022 Appointment Oncology Kian Winters Shel[place], ENRIQUEBS 376[address] [facility] N [address] (Wo rk) documented as of this encounter [...] Complete Blood Count-W/Diff (08/19/2006 3:10 PM CDT) [facility] Method Time Signature White Blood Cell 6.9 [...] - HP CONVERSION Hemoglobin Conc 36.5 gm/dL [place] RDW 11.8 11.0 - HP CONVERSION 15.0 [...] Laterality 08/19/2006 3:10 PM CDT Liudmila Beatty WILEY LAB_1 Performing Organization Address [facility] Phon e Number HP CONVERSION ALT (SGPT) (08/19/2006 3:10 PM CDT) [facility] Method Time Signature Alanine 23 4 - 55 HP CONVERSION Aminotransferase U/L Specimen (Source) Anatomical Collection Method Collection Time Re ceived Time Location / / Volume Laterality 08/19/2006 3:10 PM CDT Liudmila Beatty [facility] LAB_1 Performing Organization Address [facility] Phon e Number HP CONVERSION AST (08/19/2006 3:10 PM CDT) [facility] Method Time Signature Aspartate 21 0 - 45 HP CONVERSION Aminotransferase U/L Specimen (Source) Anatomical Collection Method Collection Time Re ceived Time Location / / Volume Laterality 08/19/2006 3:10 PM CDT Liudmila Beatty IWLEY LAB_1 Performing Organization Address [facility] Phon e Number HP CONVERSION Bilirubin, Total (08/19/2006 3:10 PM CDT) P athologist Signature Bilirubin Total 1.1 0.2 - 1.2 HP CONVERSION mg/dL Specimen (Source) Anatomical Collection Method Collection Time Re ceived Time Location / / Volume Laterality 08/19/2006 3:10 PM CDT Liudmila Beatty JENN[facility]EROpalLeonides LAB_1 Performing Organization Address [facility] Phon e Number HP CONVERSION Urinalysis Routine(Micro If Pos) (08/19/2006 3:10 PM CDT) [facility] Method Time Signature Turbidity Clear No normal [...] Specific 1.020 1.005 - 25 HP CONVERSION [place] Specimen (Source) Anatomical Collection Method Collection Time Re ceived Time Location / / Volume Laterality 08/19/2006 3:10 PM CDT Liudmila Beatty PA-C LAB_1 Performing Organization Address City/State/ZIP Code Phon e Number HP CONVERSION documented in this encounter Visit Diagnoses Not on filedocumented in this encounter Care Teams Housing Project Manager Relationship Specialty Start Date End Date Theresa Hardy MD PCP - General 05/22/10 03/15/[address] [place] [address] documented as of this encounter
--- OUTSIDE RECORDS SUMMARY | 2021-11-26 15:08 | XMS_ITS | Encounter Summary ---
:1970 Author Organization [facility] Address [address] [address] Care Team Providers Name Role Phone Theresa Hardy MD Primary Care Provider Reason for Visit Reason Comments Other Encounter Details Date Type Department Care Team Description 03/19/2006 Telephone [facility] Geovanny Alamo MD Other [address] [place] [address] [place], [place] [address] (Wo rk) Social History Tobacco Use Types [...] at Date Recorded Female 02/21/2021 8:36 PM TRAVELING PLANT OPERATOR documented as of this encounter Progress Notes Center, Message - 03/19/2006 10:08 AM CST Phone Note filed by [employer] [facility] at 06/05/10 9180 Author: Message Center Service: (none) Author Type: (none) Filed: 06/05/10 1513 Note Time: 03/19/06 1008 Status: Signed Chronometer Assembler: Nate Bokoshe Prescription Refill Please provide enough refills to last until patient's next visit. Comment:- Pharmacy Seq #:-[phone] [facility] Street or City:-[place] Clinician Name:-Domitila Hardy Drug Name/Strength:-Topamax 100MG Sig: Dose/Route/Freq:-take one tab twice daily Quantity & Last Fill:-60 02/17/06 Created on 19Mar2006 10:08am by ISRAEL VAZQUEZ On 19Mar2006 10:36am GEOVANNY MCCURDY wrote: Ok. Acknowledged by GEOVANNY MCCURDY on 10:36am ELING PLANT OPERATOR documented in this encounter Plan of Treatment Upcoming Encounters Date Type Specialty Care Team Description 01/02/2022 Appointment Radiology PN Kian Winters MBBS [address] [facility], N [address] (Wo rk) 01/04/2022 Appointment Oncology Kian Winters MBBS [address] [facility], N [address] (Wo rk) documented as of this encounter Visit Diagnoses Not on filedocumented in this encounter Care Teams Staking Engineer Relationship Specialty Start Date End Date Theresa Hardy MD PCP - General 05/22/10 03/15/21 [address] [place] [address] documented as of this encounter
--- OUTSIDE RECORDS SUMMARY | 2021-11-26 15:08 | XMS_ITS | Encounter Summary ---
:1970 Author Organization [facility] Address [address] [address] Care Team Providers Name Role Phone Theresa Hardy MD Primary Care Provider Reason for Visit Reason Comments Other Encounter Details Date Type Department Care Team Description 09/10/2006 Telephone [facility] Surinder De Paz PAOpalC Other [address] [place] [place] [address] [phone] (Wo rk) Social History Tobacco Use Types [...] at Date Recorded Female 02/21/2021 8:36 PM DIRECT OF REAL ESTATE documented as of this encounter Progress Notes Center, Message - 09/10/2006 12:14 PM CDT Phone Note filed by [employer] at 06/06/10 0101 Author: Message Center Service: (none) Author Type: (none) Filed: 06/06/10 0101 Note Time: 09/10/06 1214 Status: Signed Rn Clinical Documentation: Message Center Front Line Sx Call Caller Name/Relationship:christopher Primary Moss Bleacher:strong Symptom or request?us 09/01 indicated kidney stone--what sx should she have? Is appointment scheduled & when?n Healthcare Administrator:christopher Best call back number:[phone] c Best time to call back:today Is [...] av seq#375 CALL BACK PHONE OR CELL PHONE:[phone] cellph BEST TIME TO CALL BACK: IS [...] sent. Acknowledged by SURINDER HUA on 3:29pm CT OF REAL ESTATE documented in this encounter Plan of Treatment Upcoming Encounters Date Type Specialty Care Team Description 01/02/2022 Appointment Radiology PN Kian Winters, JUANCARLOS [address] [facility] [place], [place] [address] (Wo rk) 01/04/2022 Appointment Oncology Kian Winters MBBS [address] [facility] [place], [place] [address] (Wo rk) documented as of this encounter Visit Diagnoses Not on filedocumented in this encounter Care Teams Development Technician Relationship Specialty Start Date End Date Theresa Hardy MD PCP - General 05/22/10 03/15/21 [address] [place] [facility] [address] documented as of this encounter
--- OUTSIDE RECORDS SUMMARY | 2021-11-26 15:08 | XMS_ITS | Encounter Summary ---
:1970 Author Organization [facility] Address [address] [address] Care Team Providers Name Role Phone Mariaelena Hardy MD Primary Care Provider Reason for Visit Reason Comments Other Encounter Details Date Type Department Care Team Description 03/03/2006 Telephone [facility], Message Other [address] [place] [address] Social History Tobacco Use Types [...] at Date Recorded Female 02/21/2021 8:36 PM RAW FINISH MILL OPERATOR documented as of this encounter Progress Notes Viji Hayes - 03/03/2006 8:58 AM CST Phone Note filed by Viji Hayes RN at 06/05/10 1256 Author: Viji Hayes RN Service: (none) Author Type: Registered Nurse Filed: 06/05/107 Note Time: 03/03/0658 Status: Signed Stretch Box Tender: Viji Hayes, RN (Registered Nurse) Care Without Wait Appt. Request: Primary Animal Geneticist:Dr. Hardy Caller name/relationship:Fifi Appt. reason/specific request:She has [...] the day) Phone # pt./caller over next hr.:[phone] OK to leave detailed messsage on voicemail? [...] 1:00 Acknowledged by JUSTINA DURON on 9:50am FINISH MILL OPERATOR documented in this encounter Plan of Treatment Upcoming Encounters Date Type Specialty Care Team Description 01/02/2022 Appointment Radiology PN Kian Winters MBBS [address] [facility] [place] [address] [address] (Wo rk) 01/04/2022 Appointment Oncology Kian Winters MBBS [address] [facility], N [address] (Wo rk) documented as of this encounter Visit Diagnoses Not on filedocumented in this encounter Care Teams Wire Dropper Relationship Specialty Start Date End Date Mariaelena Hardy MD PCP - General 05/22/10 03/15/21 [address] [place] [facility] [place] [address] documented as of this encounter
--- OUTSIDE RECORDS SUMMARY | 2021-11-26 15:08 | XMS_ITS | Encounter Summary ---
:1970 Author Organization [facility] Address [address] [address] Care Team Providers Name Role Phone Theresa Hardy MD Primary Care Provider Reason for Visit Reason Comments Other Encounter Details Date Type Department Care Team Description 12/31/2004 Telephone [facility] Viji Hayes [address] [place] [address] Social History Tobacco Use Types [...] at Date Recorded Female 02/21/2021 8:36 PM PICKLE SORTER documented as of this encounter Progress Notes Viji Hayes - 12/31/2004 10:16 AM CST Phone Note filed by Viji Hayes RN at 06/04/102213 Author: Viji Hayes RN Service: (none) Author Type: Registered Nurse Filed: 06/04/102213 Note Time: 12/31/04 1016 Status: Signed Supervisor Pipeline Maintenance: Viji Hayes, RN (Registered Nurse) Fifi called back. She was at [facility] ER an on 12/27 for diarrhea. She made an appt.today because she was no better. She just received a call from [facility] that her stool test was positive for C Diff. They are going to prescribe treatment for her and asked her to come for a recheck appt.the end of this week. Appt. made this Thursday 01/04 in [facility] and appt. in [place] was cancelled for today. Created on 31Dec2004 10:16am by VIJI HAYES LE SORTER documented in this encounter Plan of Treatment Upcoming Encounters Date Type Specialty Care Team Description 01/02/2022 Appointment Radiology PN Kian Winters MBBS 3931 [facility], N [address] (Wo rk) 01/04/2022 Appointment Oncology Kian Winters MBBS [address] [facility] [place], [place] N [address] (Wo rk) documented as of this encounter Visit Diagnoses Not on filedocumented in this encounter Care Teams Svp Digital Ad Sales Relationship Specialty Start Date End Date Theresa Hardy MD PCP - General 05/22/10 03/15/21 [address] [place] TIRSO Conklin 184237 documented as of this encounter
--- OUTSIDE RECORDS SUMMARY | 2021-11-26 15:08 | XMS_ITS | Encounter Summary ---
:1970 Author Organization [facility] Address [address] [address] Care Team Providers Name Role Phone Mariaelena Hardy MD Primary Care Provider Encounter Details Date Type Department Care Team Description 03/04/2006 Office Visit [facility] [place] [address] [place] [address] [place], [place] [address] (Wo rk) Social History Tobacco Use Types [...] at Date Recorded Female 02/21/2021 8:36 PM UNIVERSITY RELATIONS VICE PRESIDENT documented as of this encounter Last Filed Vital Signs Vital Sign Reading Time Taken Comments Blood Pressure 132/68 03/04/2006 12:56 PM UNIVERSITY RELATIONS VICE PRESIDENT Pulse 90 03/04/2006 12:56 PM C: Radial Re gular UNIVERSITY RELATIONS VICE PRESIDENT Temperature - - Respiratory Rate 24 03/04/2006 12:56 PM UNIVERSITY RELATIONS VICE PRESIDENT Oxygen Saturation - - Inhaled Oxygen - - Concentration Weight 65.8 kg (144 lb 15.9 03/04/2006 12:56 PM C: 65.8 kg oz) UNIVERSITY RELATIONS VICE PRESIDENT Height - - Body Mass Index 29.29 03/18/2005 9:04 AM UNIVERSITY RELATIONS VICE PRESIDENT documented in this encounter Progress Notes Mariaelena Hardy MD - 03/04/2006 12:01 AM CST Progress Notes signed by Mariaelena Hardy MD at 03/24/06 4826 Author: Mariaelena Hardy MD Service: (none) Author Type: Physician Filed: 06/08/10 4584 Note Time: 03/04/06 0001 Status: Signed Personal Carer: Mariaelena Hardy MD (Physician) NAME: MARII JOSÉ MR#: [id number] ACCT: [id number] VISIT: [id number] DICTATING CLINICIAN: MARIAELENA HARDY MD JOB: [id number] LOC: 502 CLINIC PROGRESS NOTE DATE OF [...] is not improved, which the patient agreed. SS:[id number] C: 03/07/06 09:36 DOCUMENT: [id number] ERSITY RELATIONS VICE PRESIDENT documented in this encounter Plan of Treatment Upcoming Encounters Date Type Specialty Care Team Description 01/02/2022 Appointment Radiology PN Kian Winters MBBS 28[address] [facility] [address] (Wo rk) 01/04/2022 Appointment Oncology Kian Winters MBBS 6731 [facility] K[place]ERINE [place] N [address] (Wo rk) documented as of this encounter Visit Diagnoses Not on filedocumented in this encounter Care Teams Tie Tape Machine Operator Relationship Specialty Start Date End Date Mariaelena Hardy MD PCP - General 05/22/10 03/15/21 [address] [address] TIRSO Conklin [id number] documented as of this encounter
--- OUTSIDE RECORDS SUMMARY | 2021-11-26 15:08 | XMS_ITS | Encounter Summary ---
:1970 Author Organization [facility] Address [address] [address] Care Team Providers Name Role Phone Theresa Hardy MD Primary Care Provider Reason for Visit Reason Comments Other Encounter Details Date Type Department Care Team Description 09/08/2006 Telephone [facility], Message Other [address] [place] [address] Social History Tobacco Use Types [...] at Date Recorded Female 02/21/2021 8:36 PM TORCH SOLDERER documented as of this encounter Progress Notes Center, Message - 09/08/2006 2:34 PM CDT Phone Note filed by [employer] at 06/06/1051 Author: Message Inhale Digital Service: (none) Author Type: (none) Filed: 06/06/1051 Note Time: 09/08/06 1434 Status: Signed Research Quality Assurance Specialist: Message Inhale Digital Non -Symptom Message from Front Line Caller Name/Relationship: Fifi Kasper Primary Accountant Auditor:Qing Hua Message: I am returning her call regarding test results, she called me about my ultra sound. Could she please return this call? Thanks Field Interviewer:Fifi Belcher call back number:[phone] Best time to call back:anytime Is it [...] notified. Acknowledged by CAROL ONEILL on 3:57pm H SOLDERER documented in this encounter Plan of Treatment Upcoming Encounters Date Type Specialty Care Team Description 01/02/2022 Appointment Radiology PN Kian Winters MBBS [address] [place] [address] benitez [place] [address] [address] (Opal osman) 01/04/2022 Appointment Oncology Kian Winters MBBS [address] [place] [facility] [place] [address] (Opal osman) documented as of this encounter Visit Diagnoses Not on filedocumented in this encounter Care Teams Post Acute Care Registered Nurse Relationship Specialty Start Date End Date Theresa Hardy MD PCP - General 05/22/10 03/15/21 [address] [place] TIRSO Conklin [address] documented as of this encounter
--- OUTSIDE RECORDS SUMMARY | 2021-11-26 15:08 | XMS_ITS | Encounter Summary ---
:1970 Author Organization [facility] Address [address], [place] [address] Care Team Providers Name Role Phone Theresa Hardy MD Primary Care Provider Encounter Details Date Type Department Care Team Description 03/18/2005 PN Conversion Only [place] CONVER[facility]O N Theresa Hardy, [address] [facility] [place] [address] [address] [facility] [place] [address] [place] [address] (Wo rk) Social History Tobacco [...] Date Recorded Female 02/21/2021 8:36 PM MANAGER OF ORGANIZATIONAL DEVELOPMENT documented as of this encounter Plan of Treatment Upcoming Encounters Date Type Specialty Care Team Description 01/02/2022 Appointment Radiology PN Kian Winters, JUANCARLOS 8021 [facility] N [address] (Wo rk) 01/04/2022 Appointment Oncology Kian Winters MBBS 4618 [facility], N [address] (Wo rk) documented as of this encounter Visit Diagnoses Not on filedocumented in this encounter Care Teams Personal Loan Specialist Relationship Specialty Start Date End Date Theresa Hardy MD PCP - General 05/22/10 03/15/21 [address] [place] TIRSO Conklin [id number] documented as of this encounter
--- OUTSIDE RECORDS SUMMARY | 2021-11-26 15:08 | XMS_ITS | Encounter Summary ---
:1970 Author Organization [facility] Address [address] [address] Care Team Providers Name Role Phone Mariaelena Hardy MD Primary Care Provider Reason for Visit Reason Comments Other Encounter Details Date Type Department Care Team Description 11/19/2005 Telephone [facility] Mariaelena Juan MD Other [address] [place] [address] [place], [place] [address] (Wo rk) Social History Tobacco Use Types [...] at Date Recorded Female 02/21/2021 8:36 PM REFRACTORY SPECIALIST documented as of this encounter Progress Notes Center, Message - 11/19/2005 10:48 AM CDT Phone Note filed by [employer] at 06/05/10 2697 Author: Message Center Service: (none) Author Type: (none) Filed: 06/05/10 0924 Note Time: 11/19/05 1048 Status: Signed Scraper Meat: Message [place] Prescription Refill Please provide enough refills to last until patient's next visit. Comment:- Pharmacy Seq #:-[phone] Pharmacy Name:-[facility] Street or City:-[place] Clinician Name:-Domitila Hardy Drug Name/Strength:-Topamax 100MG Sig: Dose/Route/Freq:-take one tab twice daily Quantity & Last Fill:-60 10/20/05 Created on 19Nov2005 10:48am by ISRAEL VAZQUEZ On 19Nov2005 12:16pm MARIAELENA HARDY wrote: faxed. Acknowledged by MARIAELENA HARDY on 12:16pm ACTORY SPECIALIST documented in this encounter Plan of Treatment Upcoming Encounters Date Type Specialty Care Team Description 01/02/2022 Appointment Radiology PN Kian Winters MBBS 3931 [facility], N [address] (Wo rk) 01/04/2022 Appointment Oncology Kian Winters MBBS 3931 [facility], N [address] (Wo rk) documented as of this encounter Visit Diagnoses Not on filedocumented in this encounter Care Teams Bookkeepers Supervisor Relationship Specialty Start Date End Date Mariaelena Hardy MD PCP - General 05/22/10 03/15/21 [address] [address] TIRSO Conklin [address] documented as of this encounter
--- OUTSIDE RECORDS SUMMARY | 2021-11-26 15:09 | XMS_ITS | Encounter Summary ---
:1970 Author [facility] Address [address] [place] [address] Care Team Providers Name Role Phone Theresa Hardy MD Primary Care Provider Encounter Details Date Type Department Care Team Description 03/07/2004 PN Conversion Only [place] [facility] N Laureen Bojorquez, [address] [place] [address] [place] [address] (Wo rk) Social History Tobacco [...] Date Recorded Female 02/21/2021 8:36 PM SUPERVISOR MACHINE WORKERS documented as of this encounter Plan of Treatment Upcoming Encounters Date Type Specialty Care Team Description 01/02/2022 Appointment Radiology PN Kian Winters MBBS 3931 [facility] [place] [address] [address] (Wo rk) 01/04/2022 Appointment Oncology Kian Winters JUANCARLOS [place] [address] [place] [address] [place] [address] [address] (Wo rk) documented as of this encounter Procedures Procedure Name Priority Date/Time Associated Comments Diagnosis WET PREP Routine 03/07/2004 1:30 PM Results f or this SUPERVISOR MACHINE WORKERS procedure are i n the results section. GLUCOSE Routine 03/07/2004 10:28 AM Results for this SUPERVISOR MACHINE WORKERS procedure are i n the results section. HGB A1C Routine 03/07/2004 10:28 AM Results for this SUPERVISOR MACHINE WORKERS procedure are i n the results section. ANATOMICAL PATH Routine 03/07/2004 7:24 AM Result s for this LIQUID BASED SUPERVISOR MACHINE WORKERS procedure are i n the results section. documented in this encounter Results Wet Prep (03/07/2004 1:30 PM SUPERVISOR MACHINE WORKERS) athologist Signature Wet Prep SEE TEXT HP CONVERSION Comment: Patient: MARII JOSÉ Wet Prep @ ?Collected: ?1330 Source: Vaginal ? Processed: ?1330 ? V Final Report ------ Many WBCs seen Moderate epithelial cells seen No Trichomonas seen Moderate yeast seen No clue cells seen @ = WET PREP Performed at ??[address] [place], [place] ??[address] Specimen (Source) Anatomical Collection Method Collection Time Re ceived Time Location / / Volume Laterality 03/07/2004 1:30 PM SUPERVISOR MACHINE WORKERS Laureen Bojorquez MD LAB_1 Performing Organization Address City/State/ZIP Code Phon e Number HP CONVERSION Glucose (03/07/2004 10:28 AM SUPERVISOR MACHINE WORKERS) P athologist Signature Lab Glucose 99 60 - 100 HP CONVERSION mg/dL Specimen (Source) Anatomical Collection Method Collection Time Re ceived Time Location / / Volume Laterality 03/07/2004 10:28 AM SUPERVISOR MACHINE WORKERS Laureen Bojorquez MD LAB_1 Performing Organization Address City/State/ZIP Code Phon e Number HP CONVERSION Hgb A1c (03/07/2004 10:28 AM SUPERVISOR MACHINE WORKERS) P athologist Signature HGB A1C 5.1 <6.0 % HP CONVERSION Specimen (Source) Anatomical Collection Method Collection Time Re ceived Time Location / / Volume Laterality 03/07/2004 10:28 AM SUPERVISOR MACHINE WORKERS Laureen Bojorquez MD LAB_1 Performing Organization Address [facility] Code Phon e Number HP CONVERSION Pap Smear (03/07/2004 7:24 AM SUPERVISOR MACHINE WORKERS) Patholo gist Method Time Signature PAP Smear SEE TEXT No normal HP CONVERSION Liquid Based range Comment: Patient: MARII JOSÉ ? CERVICAL CYTOLOGY REPORT Pathology # ??[id number] ?Date Obtained: ? Date Received: CYTOLOGIC IMPRESSION: [...] / / Volume Laterality 03/07/2004 7:24 AM SUPERVISOR MACHINE WORKERS Laureen Bojorquez MD LAB_1 Performing Organization Address City/State/ZIP Code Phon e Number HP CONVERSION documented in this encounter Visit Diagnoses Not on filedocumented in this encounter Care Teams Financial Reporting Advisor Relationship Specialty Start Date End Date Theresa Hardy MD PCP - General 05/22/10 03/15/21 [address] [place] TIRSO Conklin [address] documented as of this encounter
--- OUTSIDE RECORDS SUMMARY | 2021-11-26 15:09 | XMS_ITS | Encounter Summary ---
:1970 Author [facility] Address [address] [address] Care Team Providers Name Role Phone Theresa Hardy MD Primary Care Provider Encounter Details Date Type Department Care Team Description [facility] [address] [address] [place] [address] [phone] Social History Tobacco Use Types Packs/Day Years [...] at Date Recorded Female 02/21/2021 8:36 PM REED OR WIND INSTRUMENT REPAIRER documented as of this encounter Plan of Treatment Upcoming Encounters Date Type Specialty Care Team Description 01/02/2022 Appointment Radiology PN Kian Winters, MBBS 79[address] [facility] N [address] (Wo rk) 01/04/2022 Appointment Oncology Kian Winters MBBS 3739 [facility], N [address] (Wo rk) documented as of this encounter Visit Diagnoses Not on filedocumented in this encounter Care Teams Milling Planer Operator Relationship Specialty Start Date End Date Theresa Hardy MD PCP - General 05/22/10 03/15/21 [address] [place] TIRSO Conklin [address] documented as of this encounter
--- OUTSIDE RECORDS SUMMARY | 2021-11-26 15:09 | XMS_ITS | Encounter Summary ---
:1970 Author Organization [facility] Address [address] [address] Care Team Providers Name Role Phone Theresa Hardy MD Primary Care Provider Encounter Details Date Type Department Care Team Description 03/07/2004 Office Visit [facility] [place] [address] [facility] [address] [place] [address] [place], [place] [address] (Wo rk) Social History Tobacco Use Types [...] at Date Recorded Female 02/21/2021 8:36 PM EMAIL MARKETING MANAGER documented as of this encounter Progress Notes Venkata Bojorquez MD - 03/07/2004 12:01 AM CST Progress Notes signed by Venkata Bojorquez MD at 03/28/04 3456 Author: Venkata Bojorquez MD Service: (none) Author Type: Physician Filed: 06/08/10 0241 Note Time: 03/07/04 0001 Status: Signed Flat Surfacer: Venkata Bojorquez MD (Physician) NAME: MARII JOSÉ MR: [id number] ACCT: [id number] VISIT: [id number] DICTATING CLINICIAN: VENKATA BOJORQUEZ MD JOB: [id number] CLINIC PROGRESS NOTE DATE OF VISIT: 03/07/2004 [...] time, sooner as needed. PLAN: See assessment. SRR:[id number] C: 03/26/04 16:55 DOCUMENT: [id number] L MARKETING MANAGER documented in this encounter Plan of Treatment Upcoming Encounters Date Type Specialty Care Team Description 01/02/2022 Appointment Radiology PN Kian Winters MBBS [address] [place] N [address] (Opal osman) 01/04/2022 Appointment Oncology Kian Winters MBBS [address] [place] [facility] [address] [place] [address] (Wo rk) documented as of this encounter Visit Diagnoses Not on filedocumented in this encounter Care Teams Dockmaster Relationship Specialty Start Date End Date Theresa Hardy MD PCP - General 05/22/10 03/15/21 [address] [place] TIRSO Conklin [address] documented as of this encounter
--- OUTSIDE RECORDS SUMMARY | 2021-11-26 15:09 | XMS_ITS | Encounter Summary ---
:1970 Author [facility] Address [address] [address] Care Team Providers Name Role Phone Theresa Hardy MD Primary Care Provider Encounter Details Date Type Department Care Team Description 08/15/2004 PN Conversion Only [place] [address] [address] [place] [address] Social History Tobacco Use Types Packs/Day Years [...] at Date Recorded Female 02/21/2021 8:36 PM TICKET SELLER documented as of this encounter Plan of Treatment Upcoming Encounters Date Type Specialty Care Team Description 01/02/2022 Appointment Radiology PN Kian Winters MBBS 8141 [facility] [place] N [address]36 (Opal osman) 01/04/2022 Appointment Oncology Kian Winters MBBS 3931 [facility] [place] N [address] (Opal osman) documented as of this encounter Visit Diagnoses Not on filedocumented in this encounter Care Teams Gin Pole Operator Relationship Specialty Start Date End Date Theresa Hardy MD PCP - General 05/22/10 03/15/21 [address] [place] TIRSO Conklin [address] documented as of this encounter
--- OUTSIDE RECORDS SUMMARY | 2021-11-26 15:09 | XMS_ITS | Encounter Summary ---
:1970 [facility] Address [address] [place] [address] Care Team Providers Name Role Phone Theresa Hardy MD Primary Care Provider Encounter Details Date Type Department Care Team Description 08/17/2004 PN Conversion Only [place] CONVER[facility] N Laureen Bojorquez, [address] [place] [address] [place] [address] (Wo rk) Social History Tobacco [...] at Date Recorded Female 02/21/2021 8:36 PM STUDIO ASSISTANT documented as of this encounter Plan of Treatment Upcoming Encounters Date Type Specialty Care Team Description 01/02/2022 Appointment Radiology PN Kian Winters MBBS 3931 [facility] [place] [address] [address] (Wo rk) 01/04/2022 Appointment Oncology Kian Winters JUANCARLOS [place] [address] [facility] [place] [address] [address] (Wo rk) documented as of this encounter [...] HP CONVERSION AST (08/17/2004 10:30 AM CDT) [facility] Method Time Signature Aspartate 21 0 - 45 HP CONVERSION Aminotransferase U/L Specimen (Source) Anatomical Collection Method Collection Time Re ceived Time Location / / Volume Laterality 08/17/2004 10:30 AM CDT Laureen Bojorquez MD LAB_1 Performing Organization Address City/State/ZIP Code Phon e Number HP CONVERSION Bilirubin, Direct (08/17/2004 10:30 AM CDT) athologist Signature Bilirubin, 0.2 0.0 - 0.4 HP CONVERSION Direct mg/dL Specimen (Source) Anatomical Collection Method Collection Time Re ceived Time Location / / Volume Laterality 08/17/2004 10:30 AM CDT Laureen Bojorquez MD LAB_1 Performing Organization Address [facility] Code Phon e Number HP CONVERSION Bilirubin, Total (08/17/2004 10:30 AM CDT) athologist Signature Bilirubin Total 1.2 0.2 - 1.2 HP CONVERSION mg/dL Specimen (Source) Anatomical Collection Method Collection Time Re ceived Time Location / / Volume Laterality 08/17/2004 10:30 AM CDT Laureen Bojorquez MD LAB_1 Performing Organization Address City/[facility] Code Phon e Number HP CONVERSION GT (Gamma GT) (08/17/2004 10:30 AM CDT) athologist Signature Gamma-Glutamyl 35 5 - 85 U/L HP CONVERSION Transferase Specimen (Source) Anatomical Collection Method Collection Time Re ceived Time Location / / Volume Laterality 08/17/2004 10:30 AM CDT Laureen Bojorquez MD LAB_1 Performing Organization Address City/[facility] Code Phon e Number HP CONVERSION Urinalysis Complete Hold Culture (08/17/2004 10:19 AM CDT) [facility] gist Method Time Signature U Specific 1.020 1.005 - 25 HP CONVERSION [place] pH Urine 7.5 4.5 - 7.5 HP [...] on filedocumented in this encounter Care Teams Blending Supervisor Relationship Specialty Start Date End Date Theresa Hardy MD PCP - General 05/22/10 03/15/21 [address] [place] TIRSO Conklin [address] documented as of this encounter
--- OUTSIDE RECORDS SUMMARY | 2021-11-26 15:09 | XMS_ITS | Encounter Summary ---
:[address] [facility] Address [address] [address] Care Team Providers Name Role Phone Theresa Hardy MD Primary Care Provider Reason for Visit Reason Comments Other Encounter Details Date Type Department Care Team Description 03/27/2004 Telephone [facility] Viji Bethea [address] [place] [address] Social History Tobacco Use Types [...] Date Recorded Female 02/21/2021 8:36 PM HEALTH SAFETY SPECIALIST documented as of this encounter Progress Notes Viji Hayes - 03/27/2004 11:39 AM CST Phone Note filed by Viji Hayes RN at 06/04/10 8150 Author: Viji Hayes RN Service: (none) Author Type: Registered Nurse Filed: 06/04/10 8946 Note Time: 03/27/04 1139 Status: Signed Cementer Machine Joiner: Viji Hayes, RN (Registered Nurse) Fifi fell [...] Appointment Radiology PN Kian Winters MBBS 39[address] [facility] [place] [address] [address] (Wo rk) 01/04/2022 Appointment Oncology Kian Winters MBBS 39[address] [facility] [place] [address] (Wo rk) documented as of this encounter Visit Diagnoses Not on filedocumented in this encounter Care Teams Peoplesoft Analyst Relationship Specialty Start Date End Date Theresa Hardy MD PCP - General 05/22/10 03/15/21 [address] [place] TIRSO Conklin [address] documented as of this encounter
--- OUTSIDE RECORDS SUMMARY | 2021-11-26 15:09 | XMS_ITS | Encounter Summary ---
:1970 Author Organization [facility] Address [address], [place] [address] Care Team Providers Name Role Phone Theresa Hardy MD Primary Care Provider Encounter Details Date Type Department Care Team Description 10/01/[address] [facility] Evelyn Andrade, [address] [place] [address] [facility] [phone] [place], [place] [address] Social History Tobacco Use [...] Date Recorded Female 02/21/2021 8:36 PM SUPERVISOR INSECTICIDE documented as of this encounter Last Filed [...] 0635 Note Time: 10/01/04 0001 Status: Signed Retail Department Manager: Evelyn Andrade PA-C (Resource) NAME: MARII JOSÉ MR: [id number] ACCT: [id number] VISIT: [id number] DICTATING CLINICIAN: EVELYN ANDRADE PA-C JOB: [id number] CLINIC PROGRESS NOTE DATE OF VISIT: 10/01/2004 [...] prior to that time, should be re-seen. LAG:[id number] C: 10/03/04 06:39 DOCUMENT: [id number] documented in this encounter Plan of Treatment Upcoming Encounters Date Type Specialty Care Team Description 01/02/2022 Appointment Radiology PN Kian Winters MBBS 39[address] [facility], N [address] (Opal osman) 01/04/2022 Appointment Oncology Kian Winters [facility]BS [facility] [facility] [address] (Opal osman) documented as of this encounter [...] no evidence for free air nor obstruction. [facility]/ [id number] Dictating ALBIN BOYKIN MD Procedure Note Albin Medina - 04/25/2016 Large pelvic phlebolith on the left. Mil d rotoscoliosis convex right. Nonspecific abdominal gas pattern with no evidence for free air nor obstruction. [facility]/ [id number] Dictating ALBIN BOYKIN MD Evelyn Andrade PA-C RAD GD documented in this encounter Visit Diagnoses Not on filedocumented in this encounter Care Teams Airfreight Loading Supervisor Relationship Specialty Start Date End Date Theresa Hardy MD PCP - General 05/22/10 03/15/21 [address] [place] T[facility] Conklin [address] documented as of this encounter
--- OUTSIDE RECORDS SUMMARY | 2021-11-26 15:09 | XMS_ITS | Encounter Summary ---
:1970 Author Organization [facility] Address [address] [address] Care Team Providers Name Role Phone Theresa Hardy MD Primary Care Provider Encounter Details Date Type Department Care Team Description 09/24/2004 Office Visit [facility] [place] [address] [facility] [address] [place] [address] [place], [place] [phone] (Wo rk) Social History Tobacco Use Types [...] at Date Recorded Female 02/21/2021 8:36 PM WOOL HAT HYDRAULICKER documented as of this encounter Last Filed [...] 06/08/10 0627 Note Time: 09/24/042021 Status: Signed Signal Inspector: Venkata Bojorquez MD (Physician) NAME: MARII JOSÉ MR: [id number] ACCT: [id number] VISIT: [id number] DICTATING CLINICIAN: VENKATA BOJORQUEZ MD JOB: [id number] CLINIC PROGRESS NOTE DATE OF VISIT: 09/24/2004 SUBJECTIVE: Ffaikb-pfsr-dgkx-old female comes in today with complaints of [...] on Levsin, also reviewed the use of yqhq-taz-zifqwus Imodium. She will be notified of results when available. I have asked her that, if the medication does not help her symptoms or if her symptoms seem to be worsening, reviewed concerning symptoms for which she should be reevaluated. Will see her back in approximately four weeks for a recheck. TT: [address]: 30 minutes. SRR:[id number] C: 09/25/04 22:41 DOCUMENT: [id number] documented in this encounter Plan of Treatment Upcoming Encounters Date Type Specialty Care Team Description 01/02/2022 Appointment Radiology PN Kian Winters MBBS [address] [place] [facility] [place] N [address]86 (Wo rk) 01/04/2022 Appointment Oncology Kian Winters MBBS [address] [place] [facility] [place] [address] (Wo rk) documented as of this encounter Visit Diagnoses Not on filedocumented in this encounter Care Teams Polishing Machine Tender Relationship Specialty Start Date End Date Theresa Hardy MD PCP - General 05/22/10 03/15/21 [address] [place] T[facility] Conklin [address] documented as of this encounter
--- OUTSIDE RECORDS SUMMARY | 2021-11-26 15:09 | XMS_ITS | Encounter Summary ---
:[address] [facility] Address [address] [place] [address] Care Team Providers Name Role Phone Theresa Hardy MD Primary Care Provider Encounter Details Date Type Department Care Team Description 10/01/2004 PN Conversion Only [facility] Evelyn Harrell [address] [facility] [place] [address] [facility] [address] [place] [address] Social History Tobacco Use Types [...] at Date Recorded Female 02/21/2021 8:36 PM BULLET ASSEMBLY PRESS SETTER OPERATOR documented as of this encounter Plan of Treatment Upcoming Encounters Date Type Specialty Care Team Description 01/02/2022 Appointment Radiology PN Kian Winters MBBS [address] [facility] [place] [address] [address] (Wo rk) 01/04/2022 Appointment Oncology Kian Winters MBBS 3931 [facility] [place] [address] [address] (Opal osman) documented as of this encounter [...] (10/01/2004 9:32 PM CDT) [facility] Signature Urine [facility] SEE TEXT HP CONVERSION Comment: Patient: FIFI JOSÉ Culture, Urine @ ?Collected: ??[id number] ??[id number] Source: Clean Ca ?Processed: ??[id number] ??2131 ? 1V,SENS Final Report ------ ?[id number] ??0942 No growth @ = URINE CULTURE Performed at [address], [place], [place] ?[address] Specimen (Source) Anatomical Collection Method Collection Time Re ceived Time Location / / Volume Laterality 10/01/2004 9:32 PM CDT Evelyn Fofana PA-C LAB_1 Performing Organization Address [facility] Phon e Number HP CONVERSION (ABNORMAL) Complete Blood Count-W/Diff (10/01/2004 8:46 PM CDT) [facility] Method Time Signature White Blood Cell 6.7 [...] - HP CONVERSION Hemoglobin Conc 36.5 gm/dL [place] RDW 11.4 11.0 - HP CONVERSION 15.0 [...] Evelyn Fofana PA-C LAB_1 Performing Organization Address [facility] Phon e Number HP CONVERSION (ABNORMAL) Urinalysis Complete Hold Culture (10/01/2004 8:46 PM CDT) [facility] clypd Method Time Signature U Specific 1.025 1.005 - 25 HP CONVERSION [place] pH Urine 5.5 4.5 - 7.5 HP [...] on filedocumented in this encounter Care Teams Drum Stenciler Relationship Specialty Start Date End Date Theresa Hardy MD PCP - General 05/22/10 03/15/21 [address] [place] T[facility] Conklin [address] documented as of this encounter
--- OUTSIDE RECORDS SUMMARY | 2021-11-26 15:09 | XMS_ITS | Encounter Summary ---
:1970 Author Organization [facility] Address [address] [address] Care Team Providers Name Role Phone Theresa Hardy MD Primary Care Provider Encounter Details Date Type Department Care Team Description 08/09/2003 PN Conversion Only [facility] [place] [address] [address] [place] [address] Social History Tobacco Use Types Packs/Day Years [...] at Date Recorded Female 02/21/2021 8:36 PM BILINGUAL CASE MANAGER documented as of this encounter Plan of Treatment Upcoming Encounters Date Type Specialty Care Team Description 01/02/2022 Appointment Radiology PN Kian Winters MBBS 5[address] [facility] [place] N [address] (Opal soman) 01/04/2022 Appointment Oncology Kian Winters MBBS 3931 [facility] [place] [address] [address] (Opal osman) documented as of this encounter Visit Diagnoses Not on filedocumented in this encounter Care Teams Sales Professional Bilingual Relationship Specialty Start Date End Date Theresa Hardy MD PCP - General 05/22/10 03/15/21 [address] [place] T[facility] Conklin [address] documented as of this encounter
--- OUTSIDE RECORDS SUMMARY | 2021-11-26 15:09 | XMS_ITS | Encounter Summary ---
:1970 Author Organization [facility] Address [address], [place] [address] Care Team Providers Name Role Phone Theresa Hardy MD Primary Care Provider Reason for Visit Reason Comments Other Encounter Details Date Type Department Care Team Description 09/12/2004 Telephone [facility] [place] Other [address] [place] [address] Social History Tobacco Use Types [...] at Date Recorded Female 02/21/2021 8:36 PM CHAIRMAN documented as of this encounter Progress Notes Viji Hayes - 09/12/2004 8:54 AM CDT Phone Note filed by Viji Hayes RN at 06/04/101932 Author: Viji Hayes RN Service: (none) Author Type: Registered Nurse Filed: 06/04/101932 Note Time: 09/12/04853 Status: Signed Electrical Continuity Inspector: Viji Hayes, RN (Registered Nurse) Fifi was seen August 17 for some r-sided abdominal pain and possible IBS issues (no dication from visit). She had a RUQ US, and that was normal. Her symptoms persist. You told her to come back if symptoms persist. 1st available appt. is October 02. Call her at home:[phone]...detailed message is ok. If you need to talk call her cell if not home:[phone]. Created on 12Sep2004 8:54am by VIJI HAYES On 12Sep2004 12:25pm VENKATA VEGA wrote: carol call and schedule follow up appt Acknowledged by VENKATA VEGA on 12:25pm On 12Sep2004 1:51pm CAROL STEVENS wrote: Pt. called and scheduled for appt. 09/24. Acknowledged by CAROL STEVENS on 1:51pm RMAN documented in this encounter Plan of Treatment Upcoming Encounters Date Type Specialty Care Team Description 01/02/2022 Appointment Radiology PN Kian Winters MBBS [address] [place] [address] (Wo rk) 01/04/2022 Appointment Oncology Kian Winters MBBS [address] [place] [address] [address] (Wo rk) documented as of this encounter Visit Diagnoses Not on filedocumented in this encounter Care Teams Parking Meter Attendant Relationship Specialty Start Date End Date Theresa Hardy MD PCP - General 05/22/10 03/15/21 [address] [place] T[facility] Conklin [phone] documented as of this encounter
--- OUTSIDE RECORDS SUMMARY | 2021-11-26 15:09 | XMS_ITS | Encounter Summary ---
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 Pancreatic tail poorly visualized. [facility]/ 789114 Dictating GEOVANY DOUGLAS RADIOLOGIST Narrative 08/29/2004 7:37 [...] quadrant ultrasound study. Pancreatic tail poorly visualized. [facility]/ 525542 Dictating GEOVANY DOUGLAS RADIOLOGIST Laureen Bojorquez MD RAD US documented in this encounter Visit Diagnoses Not on filedocumented in this encounter Care Teams Assistant Manager Quality Management Relationship Specialty Start Date End Date Theresa Hardy MD PCP - General 05/22/10 03/15/21 [address] [place] T[facility] Conklin [address] documented as of this encounter
--- OUTSIDE RECORDS SUMMARY | 2021-11-26 15:09 | XMS_ITS | Encounter Summary ---
:1970 Author Organization [facility] Address [address] [address] Care Team Providers Name Role Phone Theresa Hardy MD Primary Care Provider Encounter Details Date Type Department Care Team Description 08/17/2004 Office Visit [facility] [place] [address] [facility] [address] [place] [address] [place], [place] [phone] (Wo rk) Social History Tobacco Use Types [...] at Date Recorded Female 02/21/2021 8:36 PM MULTICULTURAL INTERNSHIP documented as of this encounter Last Filed [...] 06/08/10 0549 Note Time: 08/17/042021 Status: Signed Identification Clerk: Venkata Bojorquez MD (Physician) NAME: MARII JOSÉ MR: [id number] ACCT: [id number] VISIT: [id number] DICTATING CLINICIAN: VENKATA BOJORQUEZ MD JOB: [id number] CLINIC PROGRESS NOTE DATE OF VISIT: 08/17/2004 [...] character. She will follow up as above. SRR:[id number] C: 10/14/04 14:06 DOCUMENT: [id number] documented in this encounter Plan of Treatment Upcoming Encounters Date Type Specialty Care Team Description 01/02/2022 Appointment Radiology PN Kian Winters, JUANCARLOS 39[address] [facility] [place], [place] [address] [address] (Wo rk) 01/04/2022 Appointment Oncology Kian Winters MBBS 39[address] [facility] [place] [address] (Wo rk) documented as of this encounter Visit Diagnoses Not on filedocumented in this encounter Care Teams Electrician [employer] Relationship Specialty Start Date End Date Theresa Hardy MD PCP - General 05/22/10 03/15/21 [address] [place] T[facility] Conklin 003627 documented as of this encounter
--- OUTSIDE RECORDS SUMMARY | 2021-11-26 15:09 | XMS_ITS | Encounter Summary ---
:1970 Author Organization [facility] Address [address], [place] [address] Care Team Providers Name Role Phone Theresa Hardy MD Primary Care Provider Reason for Visit Reason Comments Other Encounter Details Date Type Department Care Team Description 09/13/[address] [facility] [place] Other [address] [facility] [address] [place] [address] [place], [place] [phone] (Wo rk) Social History Tobacco Use Types [...] Date Recorded Female 02/21/2021 8:36 PM RN MENTAL HEALTH documented as of this encounter Progress Notes Center, Message - 09/13/2004 8:55 AM CDT Phone Note filed by Message Center at 06/04/101933 Author: Message Center Service: (none) Author Type: (none) Filed: 06/04/101933 Note Time: 09/13/04854 Status: Signed Test Designer: Message Center MESSAGE TO CARE TEAM NAME OF CALLER:Fifi Kasper NAME OF CLINICIAN:Dr. Bojorquez MESSAGE:Pt takes Topamax 100 mg bid, she is requesting a new order to be called to pharm with enough pills that will last her 30 days,last rx only gave her half of a month. Knows Dr. Bojorquez is out of office today...ok for tomorrow. [facility] PHONE #:[phone] CALL BACK PHONE #:[phone] BEST TIME TO CALL BACK: Is it [...] 8:19am CAROL STEVENS wrote: Above rx called. MENTAL HEALTH documented in this encounter Plan of Treatment Upcoming Encounters Date Type Specialty Care Team Description 01/02/2022 Appointment Radiology PN Kian Winters MBBS [address] [facility] [place] [address] (Wo rk) 01/04/2022 Appointment Oncology Kian Winters MBBS [address] [facility] [place], [place] [address] [address] (Wo rk) documented as of this encounter Visit Diagnoses Not on filedocumented in this encounter Care Teams Financial Assistance Specialist Relationship Specialty Start Date End Date Theresa Hardy MD PCP - General 05/22/10 03/15/21 [address] [place] T[facility] Conklin [id number] documented as of this encounter
--- OUTSIDE RECORDS SUMMARY | 2021-11-26 15:09 | XMS_ITS | Encounter Summary ---
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 [employer] documented as of this encounter Plan of Treatment Upcoming Encounters Date Type Specialty Care Team Description 01/02/2022 Appointment Radiology PN Kian Winters MBBS [address] [place] [address] [address] (Opal osman) 01/04/2022 Appointment Oncology Kian Winters MBBS [address] [place] [address] [address] (Opal osman) documented as of this encounter Visit Diagnoses Not on filedocumented in this encounter Care Teams Decorating Inspector Relationship Specialty Start Date End Date Theresa Hardy MD PCP - General 05/22/10 03/15/21 [address] [place] T[facility] Conklin [address] documented as of this encounter
--- OUTSIDE RECORDS SUMMARY | 2021-11-26 15:09 | XMS_ITS | Encounter Summary ---
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 PLAN: See assessment. SRR:[id number] C: 11/15/03 17:34 DOCUMENT: [id number] EXAMINER documented in this encounter Plan of Treatment Upcoming Encounters Date Type Specialty Care Team Description 01/02/2022 Appointment Radiology PN Kian Winters MBBS 3931 [facility], N [address] (Wo rk) 01/04/2022 Appointment Oncology Kian Winters MBBS 39[address] [facility], N [address] (Wo rk) documented as of this encounter Visit Diagnoses Not on filedocumented in this encounter Care Teams Material Distributor Relationship Specialty Start Date End Date Theresa aHrdy MD PCP - General 05/22/10 03/15/21 [address] [place] T[facility] Conklin 645027 documented as of this encounter
--- OUTSIDE RECORDS SUMMARY | 2021-11-26 15:09 | XMS_ITS | Encounter Summary ---
:1970 Author Organization [facility] Address [address] [address] Care Team Providers Name Role Phone Theresa Hardy MD Primary Care Provider Reason for Visit Reason Comments Other Encounter Details Date Type Department Care Team Description 04/02/2004 Telephone [facility] [place], [place] Other [address] [place] [address] Social History Tobacco Use Types [...] at Date Recorded Female 02/21/2021 8:36 PM WHISKEY REGAUGER documented as of this encounter Progress Notes Center, Message - 04/02/2004 8:30 AM CST Phone Note filed by [email or web address] at 06/04/10 336 Author: Nate Fernandez Service: (none) Author Type: (none) Filed: 06/04/101641 Note Time: 04/02/04829 Status: Signed Assistant Manager Of Operations: Message Thounds Pt was seen in [facility] for her well-check, and she was told [...] changed all together. Pt uses [facility] in [place]- [phone]. Fifi can be reached at [phone]. Created on 02Apr2004 8:30am by STORMY VAZQUEZ On 02Apr2004 11:20am VENKATA VEGA wrote: nay please confirm rosalbants to continue and has been taking daily dose of topamax 100mg daily and if this is so call in script for #30 with 6 refills Acknowledged by VENKATA VEGA on 11:20am On 02Apr2004 11:32am NAY STEVENS wrote: Pt. confirmed she wants to take 1tab 100mg daily as migraine prevention. Rx was called. Acknowledged by NAY STEVENS on 11:32am documented in this encounter Plan of Treatment Upcoming Encounters Date Type Specialty Care Team Description 01/02/2022 Appointment Radiology PN Kian Winters MBBS 38[address] [facility] [place] [address] [address] (Wo rk) 01/04/2022 Appointment Oncology Kian Winters MBBS 7[address] [facility] [place] N [address] (Wo rk) documented as of this encounter Visit Diagnoses Not on filedocumented in this encounter Care Teams Transformation Lead Relationship Specialty Start Date End Date Theresa Hardy MD PCP - General 05/22/10 03/15/21 [address] [place] T[facility] Conklin [phone] documented as of this encounter
--- OUTSIDE RECORDS SUMMARY | 2021-11-26 15:10 | XMS_ITS | Encounter Summary ---
:1970 Author Organization [facility] Address [address] [place] [address] Care Team Providers Name Role Phone Theresa Hardy MD Primary Care Provider Encounter Details Date Type Department Care Team Description 01/05/2003 PN Conversion Only [place] [facility] N Laureen Bojorquez, [address] [place] [address] [address] [place] [address] (Wo rk) Social History Tobacco [...] at Date Recorded Female 02/21/2021 8:36 PM ADMINISTRATIVE EXECUTIVE documented as of this encounter Plan of Treatment Upcoming Encounters Date Type Specialty Care Team Description 01/02/2022 Appointment Radiology PN Kian Winters MBBS 3931 [facility] [place] [address] [address] (Wo rk) 01/04/2022 Appointment Oncology Kian Winters JUANCARLOS [place] [address] [place] [address] [place] [address] [address] (Wo rk) documented as of this encounter Procedures Procedure Name Priority Date/Time Associated Comments Diagnosis ANATOMICAL PATH Routine 01/05/2003 12:31 PM Resul ts for this LIQUID BASED ADMINISTRATIVE EXECUTIVE procedure are i n the results section. GLUCOSE Routine 01/05/2003 10:22 AM Results for this ADMINISTRATIVE EXECUTIVE procedure are i n the results section. LIPID PANEL AND Routine 01/05/2003 10:22 AM Resul ts for this DIRECT LDL(IF ADMINISTRATIVE EXECUTIVE procedure are in NEEDED) the results section. documented in this encounter Results Pap Smear (01/05/2003 12:31 PM ADMINISTRATIVE EXECUTIVE) [facility] gist Method Time Signature PAP Smear SEE TEXT No normal HP CONVERSION Liquid Based range Comment: Patient: MARII OJSÉ ? CERVICAL CYTOLOGY REPORT Pathology # ??[id number] ?Date Obtained: ? Date Received: CYTOLOGIC IMPRESSION: Negative for intraepithelial lesion or m alignancy. ? AAKASH TIONAL DATA LMP: ?12-22-02 CLINICAL HIST ? PREV NORM 11-18 ELSE WHERE LIQUID BASED PAP CERVICAL SPECIMEN ADEQUACY: ?? Satisfactory. ENDOCERVICAL CELLS: ??Present. Verified 01/14/03 by: ??TSC ?(electronic signature) Specimen (Source) Anatomical Collection Method Collection Time Re ceived Time Location / / Volume Laterality 01/05/2003 12:31 PM ADMINISTRATIVE EXECUTIVE Laureen Bojorquez MD LAB_1 Performing Organization Address City/State/ZIP Code Phon e Number HP CONVERSION Lipid Panel and Direct LDL(If Needed) (01/05/2003 10:22 AM ADMINISTRATIVE EXECUTIVE) Patholo gist Method Time Signature Length Of Fast 9.5 [...] / / Volume Laterality 01/05/2003 10:22 AM ADMINISTRATIVE EXECUTIVE Laureen Bojorquez MD LAB_1 Performing Organization Address City/State/ZIP Code Phon e Number HP CONVERSION (ABNORMAL) Glucose (01/05/2003 10:22 AM ADMINISTRATIVE EXECUTIVE) P athologist Signature Length Of Fast 9.5 Hours HP CONVERSION Lab Glucose 111 (H) 60 - 109 HP CONVERSION mg/dL Specimen (Source) Anatomical Collection Method Collection Time Re ceived Time Location / / Volume Laterality 01/05/2003 10:22 AM ADMINISTRATIVE EXECUTIVE Laureen Bojorquez MD LAB_1 Performing Organization Address City/State/ZIP Code Phon e Number HP CONVERSION documented in this encounter Visit Diagnoses Not on filedocumented in this encounter Care Teams Blacksmith Assistant Relationship Specialty Start Date End Date Theresa Hardy MD PCP - General 05/22/10 03/15/21 [address] [place] T[facility] Conklin [address] documented as of this encounter
--- OUTSIDE RECORDS SUMMARY | 2021-11-26 15:10 | XMS_ITS | Encounter Summary ---
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 documented as of this encounter Plan of Treatment Upcoming Encounters Date Type Specialty Care Team Description 01/02/2022 Appointment Radiology PN Kian Winters MBBS [address] [facility] [place] N [address]796 (Opal osman) 01/04/2022 Appointment Oncology Kian Winters MBBS [address] [facility] [place] [address] [address] (Opal osman) documented as of this encounter Visit Diagnoses Not on filedocumented in this encounter Care Teams Damage Prevention Coordinator Relationship Specialty Start Date End Date Theresa Hardy MD PCP - General 05/22/10 03/15/21 [address] [place] [address] documented as of this encounter
--- OUTSIDE RECORDS SUMMARY | 2021-11-26 15:10 | XMS_ITS | Encounter Summary ---
:1970 Author [facility] Address [address] [place] [address] Care Team Providers Name Role Phone Theresa Hardy MD Primary Care Provider Encounter Details Date Type Department Care Team Description 01/05/2003 PN Conversion Only 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 She is . Recently moved here from [place] in September. Nonsmoker. No alcohol. Caffeine use [...] years time, sooner as needed. TT: CT: [id number] C: 01/09/03 21:50 DOCUMENT: [id number] RT MACHINE OPERATOR documented in this encounter Plan of Treatment Upcoming Encounters Date Type Specialty Care Team Description 01/02/2022 Appointment Radiology PN Kian Winters MBBS 39[address] [facility], [place] [address] (Wo rk) 01/04/2022 Appointment Oncology Kian Winters MBBS [address] [facility], [address] [address] (Wo rk) documented as of this encounter Visit Diagnoses Not on filedocumented in this encounter Care Teams Chainstitch Pants Outseamer Relationship Specialty Start Date End Date Theresa Hardy MD PCP - General 05/22/10 03/15/21 [address] [place] [address] documented as of this encounter
--- OUTSIDE RECORDS SUMMARY | 2021-11-26 15:10 | XMS_ITS | Encounter Summary ---
:1970 [facility] Address [address] [place] [address] Care Team Providers Name Role Phone Theresa Hardy MD Primary Care Provider Encounter Details Date Type Department Care Team Description 06/13/2003 PN Conversion Only [facility] Venkata Bojorquez, Medicine [address] [place] [address] DRIVE [phone] [place] [phone] (Wo rk) Social History Tobacco Use Types [...] at Date Recorded Female 02/21/2021 8:36 PM LINUX UNIX ADMINISTRATOR documented as of this encounter Progress Notes Venkata Bojorquez MD - 06/13/2003 12:01 AM CDT Progress Notes signed by Venkata Bojorquez MD at 09/02/03 3098 Author: Venkata Bojorquez MD Service: (none) Author Type: Physician Filed: 06/07/10 220 Note Time: 06/13/03 0001 Status: Signed Serging Machine Operator Automatic: Venkata Bojorqeuz MD (Physician) NAME: FIFI JOSÉ MR: [id number] ACCT: [id number] VISIT: [id number] DICTATING CLINICIAN: VENKATA BOJORQUEZ MD JOB: [id number] CLINIC PROGRESS NOTE DATE OF VISIT: 06/13/2003 SUBJECTIVE: Fifi is a 33-year-old female who was seen [...] on routine wound care. Follow up p.r.n. [id number] C: 07/26/03 10:10 DOCUMENT: [id number] Venkata Bojorquez MD - 05/30/2003 12:01 AM CDT Progress Notes signed by Venkata Bojorquez MD at 07/02/03 2128 Author: Venkata Bojorquez MD Service: (none) Author Type: Physician Filed: 06/07/10 1950 Note Time: 05/30/03 0001 Status: Signed Serging Machine Operator Automatic: Venkata Bojorquez MD (Physician) NAME: FIFI JOSÉ MR: [id number] ACCT: [id number] VISIT: [id number] DICTATING CLINICIAN: VENKATA BOJORQUEZ MD JOB: [id number] CLINIC PROGRESS NOTE DATE OF VISIT: 05/30/2003 [...] and reasons to follow up sooner. SUBJECTIVE: Fifi is a 33-year-old female who comes in [...] recent infection. No active infection or cellulitis. [id number] C: 05/31/03 15:35 DOCUMENT: [id number] Venkata Bojorquez MD - 04/27/2003 12:01 AM CST Progress Notes signed by Venkata Bojorquez MD at 09/02/03 1535 Author: Venkata Bojorquez MD Service: (none) Author Type: Physician Filed: 06/07/10 1916 Note Time: 04/27/03 0001 Status: Signed Serging Machine Operator Automatic: Venkata Bojorquez MD (Physician) NAME: FIFI JOSÉ MR: [id number] ACCT: VISIT: [id number] DICTATING CLINICIAN: VENKATA BOJORQUEZ MD JOB: [id number] CLINIC PROGRESS NOTE DATE OF VISIT: 04/27/2003 SUBJECTIVE: Fifi is a 33-year-old female who comes in [...] she should come back in for removal. [id number] C: 07/27/03 09:52 DOCUMENT: [id number] Phone Note, Clinician - 04/08/2003 12:01 AM CST Phone Note filed by Clinician Phone Note at 06/05/10 1321 Author: Clinician Phone Note Service: (none) Author Type: Resource Filed: 06/05/10 1321 Note Time: 04/08/03 0001 Status: Signed Serging Machine Operator Automatic: Clinician Phone Note (Resource) TO: VENKATA BOJORQUEZ FROM: STORMY VAZQUEZ [phone] 04/08/03 * PROVIDER MESSAGE: RETURN * 12:08PM * CALL REQUESTED * MESSAGE: Pt is currently taking 150mg * HOME PHONE:[phone] * of Topamax QD, has not taken at all * CONTACT PHONE:[phone] * this week because she doesn't like * Fifi- not urgent, ok to * the way [...] GIVEN CALL BY STORMY VAZQUEZ 04/08/2003 12:05PM [phone] ADDENDUM: <> 04/08/2003 01:24PM by CAROL STEVENS APPLICATION SUPPORT: Dr. Bojorquez ok'd rx for amitriptyline and [...] 1301 Note Time: 03/02/03 0001 Status: Signed Serging Machine Operator Automatic: Clinician Phone Note (Resource) TO: VENKATA BOJORQUEZ FROM: ESTEFANY CANTU [id number] 03/02/03 * PROVIDER MESSAGE: ROUTINE * 02:51PM * *WITHIN 4 HOURS * MESSAGE: Clarification from previous * HOME PHONE:[phone] * RX for Topamax It is to be Topamax * CONTACT PHONE:[phone] * 25mg th ree tabs PO daily x one * PHARMACY: [phone] * week then increase by 25mg weekly * [facility] * up to 150mg weekly. Pharm needed clarification re: daily. Pharm informed. SUBJECTIVE: ALLERGIES/SENSITIVITIES... none 03/02/03 CURRENT MEDICATIONS... Topamax 03/02/03 PERTINENT PAST HISTORY... migraines 03/02/03 WEIGHT: ASSESSMENT: Rx PLAN: DISPOSITION: NO DISPOSITION GIVEN CALL BY ESTEFANY CANTU 03/02/2003 02:45PM [id number] ADDENDUM: Phone Note, Clinician - 03/02/2003 12:01 AM CST Phone Note filed by Clinician Phone Note at 06/05/10 1301 Author: Clinician Phone Note Service: (none) Author Type: Resource Filed: 06/05/10 8863 Note Time: 03/02/03 0001 Status: Signed Serging Machine Operator Automatic: Clinician Phone Note (Resource) TO: VENKATA BOJORQUEZ FROM: DARLINE HAYES RN [phone] * PROVIDER MESSAGE: ROUTINE * 03/02/03 09:42AM * *WITHIN 4 HOURS * MESSAGE: I saw in * HOME PHONE:[phone] * January for my migraines...I take * CONTACT PHONE:[phone] * Topamax to prevent them....she told * PHARMACY: [phone] [facility] * me to call if I was getting * [place] * worse...I am torrez ving 2-3 migraines a week. SUBJECTIVE: ALLERGIES/SENSITIVITIES... none 03/02/03 CURRENT MEDICATIONS... Topamax 03/02/03 PERTINENT PAST HISTORY... migraines 03/02/03 WEIGHT: PATIENT IS NOT . PATIENT IS NOT NURSING. ASSESSMENT: Migraines PLAN: DISPOSITION: NO DISPOSITION GIVEN CALL BY DARLINE HAYES RN 03/02/2003 09:39AM [phone] ADDENDUM: <> 03/02/2003 02:29PM by ESTEFANY CANTU: [...] 1743 Note Time: 02/02/03 0001 Status: Signed Serging Machine Operator Automatic: Venkata Bojorquez MD (Physician) NAME: FIFI JOSÉ MR: [id number] ACCT: [id number] VISIT: [id number] DICTATING CLINICIAN: VENKATA BOJORQUEZ MD JOB: [id number] CLINIC PROGRESS NOTE DATE OF VISIT: 02/02/2003 [...] will be notified of results. TT: CT: [id number] C: 02/15/03 16:26 DOCUMENT: [id number] X UNIX ADMINISTRATOR documented in this encounter Plan of Treatment Upcoming Encounters Date Type Specialty Care Team Description 01/02/2022 Appointment Radiology PN Kian Winters MBBS 39[address] [facility] [place] [address] (Wo rk) 01/04/2022 Appointment Oncology Kian Winters MBBS 39[address] [facility], [place] [address] (Wo rk) documented as of this encounter Visit Diagnoses Not on filedocumented in this encounter Care Teams Occupational Psychologist Relationship Specialty Start Date End Date Theresa Hardy MD PCP - General 05/22/10 03/15/21 [address] [place] [address] documented as of this encounter
--- NOTE | 2021-11-26 15:20 | CRLHL7_ITS ---
For Patients: As a result of the Cures Act, medical imaging exams and procedure reports are released immediately into your electronic medical record. You may view this report before your referring provider. If you have questions, please contact your health care provider. BILATERAL DIGITAL SCREENING MAMMOGRAM WITH COMPUTER-AIDED DETECTION AND TOMOSYNTHESIS, 11/26/2021 CLINICAL HISTORY: Routine screening exam. COMPARISON: 11/22/2020, 11/22/2027, 11/18/2018, 10/06/2017 TECHNIQUE: Digital mammogram in CC and MLO projections including computer-aided detection (CAD) and tomosynthesis. BREAST COMPOSITION: The breasts are heterogeneously dense, which may obscure small masses. FINDINGS: RIGHT Breast: Focal asymmetric density within the lateral right breast 5 cm from the nipple. LEFT Breast: No suspicious findings. IMPRESSION: RIGHT breast asymmetry/mass. RECOMMENDATIONS: Additional mammographic views of the RIGHT breast including 3D spot compression CC/MLO. RIGHT breast ultrasound may also be required. The [facility] will contact the patient for follow-up. BI-RADS Category 0: Incomplete - Need Additional Imaging Evaluation and/or Prior Mammograms for Comparison A lay language report of this examination will be provided to the patient. Dictated by Abdoulaye Hall MD @ 11/27/2021 8:38:43 AM CRL:linda RD/Dictated by: Abdoulaye Hall MD @ 11/27/2021 8:38:00 AM (Electronically Signed)
== END 2021-11-26 15:02 | disposition home or self-care (01) ==
LOC: MAMMO 15:04
PROVIDERS: PCP Family Medicine; Visit Provider Obstetrics & Gynecology
DX: Z12.31 Encounter for screening mammogram for malignant neoplasm of breast (principal); N63.10 Unspecified lump in the right breast, unspecified quadrant
CPT/HCPCS: 77063; 77067

== ENCOUNTER 2021-12-03 08:30 | Outpatient (CLI) | payer OTHER, SELFPAY ==
--- OUTSIDE RECORDS SUMMARY | 2021-12-03 08:32 | XMS_ITS | Encounter Summary ---
:1970 Author Organization [facility] Address [address], [place] [address] Care Team Providers Name Role Phone David Choudhury MD Primary Care Provider [phone] Reason for Visit Reason Comments Follow-up Encounter Details Date Type Department Care Team Description 09/13/2021 Telephone Specialty Center 3931 Stacia Ovalle MD Follow-up Pulmonary Medicine [address] [facility] [address] [place] [address] [place], [place] [address] [phone] Social History Tobacco Use Types Packs/Day Years Used Date Smoking Tobacco: Never Smokeless Tobacco: Never Alcohol Use Standard Drinks/Week Comments Not Currently 0 (1 standard drink = 0.6 oz pure alcoho l) rare usage Food Insecurity Answer Date Recorded Within the past 12 months, you worried that your food would Never true 03/17/2021 run out before you got money to buy more. Within the past 12 months, the food you bought just didn't N ever true 03/17/2021 last and you didn't have money to get more. 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 Jenny Schaeffer RN - 09/13/2021 11:[address] Ovalle, please see note below and advise. Thank you! Hiral Fodr - 09/13/2021 9:29 AM CDT Patient of [...] Appointment Radiology PN Kian Winters, JUANCARLOS [address] [place] [facility] [place] [address] (Wo rk) 01/04/2022 Appointment Oncology Kian Winters MBBS [address] [place] [facility] [place] [address] (Wo rk) documented as of this encounter Visit Diagnoses Not on filedocumented in this encounter Care Teams Bus Operator Relationship Specialty Start Date End Date David Choudhury MD PCP - General Family Practice 03/16/[address] [place] [address] documented as of this encounter
--- OUTSIDE RECORDS SUMMARY | 2021-12-03 08:32 | XMS_ITS | Encounter Summary ---
:1970 Author Organization [facility] Address [address] [place] [address] Care Team Providers Name Role Phone David Choudhury MD Primary Care Provider Reason for Referral Procedure/Equipment (Routine) - Incomplete Specialty Diagnoses / Procedures Referred By Contact Refer red To Contact Diagnoses Malignant neoplasm of lower lobe of right lung (HRC) Kian Winters, JUANCARLOS Procedures CT Chest WO IV Cont 39[address] [place], [place] [address] Referral ID Status Reason Start Date Expiration Date Visits V isits Requested Authorized [id number] Incomplete 04/17/2021 07/17/2022 1 1 [facility] Reason for Visit Reason Comments Follow-up Encounter Details Date Type Department Care Team Description 04/17/2021 [facility] Kian Winters, Malignant neoplasm Encounter [facility] JUANCARLOS of lower [facility] Oncology 39[address] [place] right lung (HRC) 3931 [facility] (Primary [place]x) [place] [phone] Social History Tobacco Use Types Packs/Day Years [...] Date Recorded Female 02/21/2021 8:36 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 guaiFENesin (MUCINEX) TAKE 2 [...] MBBS - 04/17/2021 9:30 AM CST NAME: FIFI JOSÉ HEMATOLOGY ONCOLOGY CLINIC VISIT DATE OF VISIT: 03/01/2021 : 1970 REASON FOR VISIT: Adenocarcinoma of the right lung, AJCC prognostic group IA3, pT1c pN0 cM0 HISTORY OF PRESENTING ILLNESS: Ms. Fifi José is a pleasant 51-year-old female with [...] episode previously. She was evaluated at the [facility] Emergency Room. She was noted [...] and has never smoked. Lives with in [place]. They have 3 children. 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 FAMILY HISTORY: Her father had [...] angiogram as discussed above. LABS: Reviewed in epic. From 03/16/2021 her creatinine was 0.94, WBC 4.8, hemoglobin 12.1, [id number], ANC 3.1 ASSESSMENT AND PLAN: This is [...] to document this note was 30 minutes. [facility] documented in this encounter Plan of Treatment Upcoming Encounters Date Type Specialty Care Team Description 01/02/2022 Appointment Radiology PN Kian Winters MBBS 39[address] [facility] [place] N [address] (Opal osman) 01/04/2022 Appointment Oncology Kian Winters MBBS [address] [facility] N [address] (Opal osman) documented as of this encounter [...] (HRC) documented in this encounter Care Teams Shaker Out Relationship Specialty Start Date End Date David Choudhury MD PCP - General Family Practice 03/16/21 [address] [place], [place] [address] documented as of this encounter
--- OUTSIDE RECORDS SUMMARY | 2021-12-03 08:32 | XMS_ITS | Encounter Summary ---
:1970 Author Organization [facility] Address [address] [address] Care Team Providers Name Role Phone David Choudhury MD Primary Care Provider [phone] Encounter Details Date Type Department Care Team Description 03/21/2021 Orders Only [facility] 5E Oncology Med Nathaly Gonzalez, WILEY Surg [address] 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 documented as of this encounter Plan of Treatment Upcoming Encounters Date Type Specialty Care Team Description 01/02/2022 Appointment Radiology PN Kian Winters, MBBS [address] [facility] [place], [place] [address] (Wo rk) 01/04/2022 Appointment Oncology Kian Winters MBBS 39[address] [facility] [place], [place] [address] [address] (Wo rk) documented as of this encounter Visit Diagnoses Not on filedocumented in this encounter Care Teams Customer Operations Manager Relationship Specialty Start Date End Date David Choudhury MD PCP - General Family Practice 03/16/21 [address] [place] [address] documented as of this encounter
--- OUTSIDE RECORDS SUMMARY | 2021-12-03 08:32 | XMS_ITS | Encounter Summary ---
:1970 Author Organization [facility] Address [address], [place] [address] Care Team Providers Name Role Phone David Choudhury MD Primary Care Provider [phone] Reason for Visit Procedure/Equipment (Routine) - Incomplete Specialty Diagnoses / Procedures Referred By Contact Refer red To Contact Diagnoses Malignant neoplasm of lower lobe of right lung (HRC) Kian Winters, MBBS Procedures CT Chest WO IV Cont [address] [place], [place] [address] Referral ID Status Reason Start Date Expiration Date Visits V isits Requested Authorized [id number] Incomplete 04/17/2021 07/17/2022 1 1 Encounter Details Date Type Department Care Team Description 06/29/[address] Scan Kian Winters, Malignant neoplasm Procedure [address] [place] MBBS of lower lobe of Drive [address] [facility] right lung (HRC) [place], [place] S [address] [place], [place] [phone] [address] Social History Tobacco Use Types Packs/Day [...] at Date Recorded Female 02/21/2021 8:36 PM 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 documented as of this encounter Plan of Treatment Upcoming Encounters Date Type Specialty Care Team Description 01/02/2022 Appointment Radiology PN Kian Winters, JUANCARLOS 39[address] [facility], [place] N [phone] (Wo rk) 01/04/2022 Appointment Oncology Kian Winters MBBS 39[address] [facility], [place] N [address] (Wo rk) documented as of this encounter [...] (HRC) documented in this encounter Care Teams Cloth Examiner Machine Relationship Specialty Start Date End Date David Choudhury MD PCP - General Family Practice 03/16/21 [address] [address] documented as of this encounter
--- OUTSIDE RECORDS SUMMARY | 2021-12-03 08:32 | XMS_ITS | Clinical Summary ---
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 Pulse 75 04/23/2017 12:07 PM NETSUITE CONSULTANT Temperature - - Respiratory Rate - - Oxygen Saturation 96% 04/23/2017 12:07 PM NETSUITE CONSULTANT Inhaled Oxygen Concentration - - Weight 78.6 kg (173 lb 4.8 oz) 04/23/2017 12:07 PM NETSUITE CONSULTANT Height - - Body Mass Index - [...] Addre ss Type Group PREFERRED ONE PREFERRED [id number] 2016-Present [address] [place] [address] [employer] Occ Other 02/18/2008 [facility] (Home) PAYABLE [phone] [address] ([place]) [place] [address] Care Teams Warehouse Specialist Relationship Specialty Start Date End Date Pcp, No PCP - General 04/23/17 . 03/26/17
--- OUTSIDE RECORDS SUMMARY | 2021-12-03 08:32 | XMS_ITS | Encounter Summary ---
:1970 Author Organization [facility] Address [address], [place] [address] Care Team Providers Name Role Phone David Choudhury MD Primary Care Provider [phone] Reason for Visit Reason Comments QUESTIONS, GENERAL Encounter Details Date Type Department Care Team Description 04/11/2021 Telephone [facility] Carol Abebe QUESTIONS, GENERAL Vascular & Vein Clin ic [address] [facility] 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 This would be the 6 week austen. Please let me know when this done and I will call patient to inform her. ER PRODUCTION LINE ARC documented in this encounter Plan of Treatment Upcoming Encounters Date Type Specialty Care Team Description 01/02/2022 Appointment Radiology PN Kian Winters, JUANCARLOS [address] [facility] [place] [address] [address] (Wo rk) 01/04/2022 Appointment Oncology Kian Winters MBBS [address] [facility] [place] N [address] (Wo rk) documented as of this encounter Visit Diagnoses Not on filedocumented in this encounter Care Teams Supervisor Shellfish Farming Relationship Specialty Start Date End Date David Choudhury MD PCP - General Family Practice 03/16/21 [address] [place] [address] documented as of this encounter
--- OUTSIDE RECORDS SUMMARY | 2021-12-03 08:32 | XMS_ITS | Encounter Summary ---
:1970 Author Organization [facility] Address [address], [place] [address] Care Team Providers Name Role Phone David Choudhury MD Primary Care Provider [phone] Reason for Visit Procedure/Equipment (Routine) - Incomplete Specialty Diagnoses / Procedures Referred By Contact Refer red To Contact Diagnoses Lung mass Greyson Ovalle MD Procedures XR Chest 2 Views [address] [place], [place] [address] Referral ID Status Reason Start Date Expiration Date Visits V isits Requested Authorized [id number] Incomplete 09/17/2021 12/17/2022 1 1 Encounter Details Date Type Department Care Team Description 09/17/2021 Ancillary Procedure [facility] ay Greyson Ovalle, Lung mass [address] Mukherjee MD [place], [place] [address] 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 documented as of this encounter Plan of Treatment Upcoming Encounters Date Type Specialty Care Team Description 01/02/2022 Appointment Radiology PN VianeyKina MBBS 3931 [facility] [place] [address] [address] (Wo rk) 01/04/2022 Appointment Oncology Kian Winters MBBS 3931 [facility] [place] [address] [address] (Wo rk) documented as of this encounter [...] chest documented in this encounter Care Teams Gun Barrel Finisher Relationship Specialty Start Date End Date David Choudhury MD PCP - General Family Practice 03/16/21 [address] [place] [address] documented as of this encounter
--- OUTSIDE RECORDS SUMMARY | 2021-12-03 08:32 | XMS_ITS | Clinical Summary ---
:1970 Author Organization [facility] Address [address] [place] [address] Care Team Providers Name Role Phone David Choudhury MD Primary Care Provider [phone] Source Comments You are receiving this [...] for each transition of care or referral. [facility] Allergies Active Allergy Reactions Severity Noted Date [...] automatically from request for maria g sood [id number] Impaired glucose tolerance test 03/07/2004 Overview: Glucose [...] at Date Recorded Female 02/21/2021 8:36 PM [employer] Last Filed Vital Signs Vital Sign Reading Time Taken Comments Blood Pressure 106/66 07/09/2021 1:32 PM CDT Pulse 82 09/17/2021 9:05 AM CDT Temperature 36.7 ??C (98.1 ??F) 07/09/2021 1:32 PM CDT Respiratory Rate 17 03/21/2021 9:59 AM [employer] Oxygen Saturation 98% 09/17/2021 9:05 AM CDT Inhaled Oxygen Concentration - - Weight 72.6 kg (160 lb) 09/17/2021 9:05 AM CDT Height 152.4 cm (5') 09/17/2021 9:05 AM CDT Body Mass Index 31.25 09/17/2021 9:05 AM CDT Plan of Treatment Upcoming Encounters Date Type Specialty Care Team Description 01/02/2022 Appointment Radiology PN Kian Winters MBBS [address] [facility] N [phone] (Wo rk) 01/04/2022 Appointment Oncology Kian Winters MBBS [address] [facility] N [phone] (Wo rk) Health Maintenance Due Date Last [...] / Subscriber ID Effective Phone Address T ype Group Dates PREFERREDONE PREFERREDONE [id number] 2019-Pres [phone] OPEN ACCESS ent [phone] [place] [phone] [place] [address] Fifi Kasper Personal/Famil Self 1970 [phone]Home) [place] [address] ESTEFANÍAFIFI S Personal/Famil 1970 [phone]Home) [place] [address] Abdoulaye Kasper Personal/Famil Self 1970 [phone]Home) [facility] [phone] [place] [address] (Work) [id number] ESTEFANÍAFIFI Personal/Famil y Advance Directives Latest Code Status on File Code Status Date Activated Date Inactivated Comments Full Code 03/16/2021 8:09 PM 03/21/2021 4:25 PM Full code in effect for 30 days Care Teams Splicer Machine Operator Relationship Specialty Start Date End Date David Choudhury MD PCP - General Family Practice 03/16/21 [id number] [facility] [place] [id number]
--- OUTSIDE RECORDS SUMMARY | 2021-12-03 08:32 | XMS_ITS | Encounter Summary ---
:1970 Author Organization [facility] Address [address] [address] Care Team Providers Name Role Phone David Choudhury MD Primary Care Provider [phone] Reason for Referral Procedure/Equipment (Routine) - Incomplete Specialty Diagnoses / Procedures Referred By Contact Refer red To Contact Procedures Sha Coulter PA-C XR Chest 1 View [address] [place], [place] [address] Referral ID Status Reason Start Date Expiration Date Visits V isits Requested Authorized [id number] Incomplete 03/20/2021 06/19/2022 1 1 K SUPERVISOR (Routine) - Incomplete Specialty Diagnoses / Procedures Referred By Contact Refer red To Contact Procedures Tommy Amador MD US Anesthesia Guided Block [address] [place], [place] [address] Referral ID Status Reason Start Date Expiration Date Visits V isits Requested Authorized [id number] Incomplete 03/16/2021 06/15/2022 1 1 K SUPERVISOR (Routine) - Incomplete Specialty Diagnoses / Procedures Referred By Contact Refer red To Contact Diagnoses Malignant neoplasm of lower lobe of right lung (HRC) Gina Tierney MD Procedures ECG 12 Lead Inpatient [address] [place], [place] [address] Referral ID Status Reason Start Date Expiration Date Visits V isits Requested Authorized [id number] Incomplete 03/16/2021 06/15/2022 1 1 K SUPERVISOR Reason for Visit Auth/Cert Specialty Diagnoses / Procedures Referred By Contact Refer red To Contact Diagnoses Malignant neoplasm of lower lobe of right lung (HRC) Procedures THORACOSCOPY/THORACOTOMY/LUNG RESECTION Referral ID Status Reason Start Date Expiration Date Visits Requ ested Visits Authorized [id number] 1 1 Encounter Details Date Type Department Care Team Description 03/16/2021 - Hospital Encounter [facility] Gina Tierney, Pain (Primary Dx); 03/21/2021 Oncology Med Surg Malignant neoplasm of lower lobe of righ t lung (HRC) [address] [facility]. [facility] [phone] Social History Tobacco Use Types Packs/Day Years [...] at Date Recorded Female 02/21/2021 8:36 PM STACK SUPERVISOR documented as of this encounter Last Filed Vital Signs Vital Sign Reading Time Taken Comments Blood Pressure 107/69 03/21/2021 9:59 AM STACK SUPERVISOR Pulse 62 03/21/2021 9:59 AM STACK SUPERVISOR Temperature 37 ??C (98.6 ??F) 03/21/2021 9:59 AM STACK SUPERVISOR Respiratory Rate 17 03/21/2021 9:59 AM STACK SUPERVISOR Oxygen Saturation 96% 03/21/2021 9:59 AM STACK SUPERVISOR Inhaled Oxygen Concentration - - Weight 73.9 kg (163 lb) 03/19/2021 6:01 PM STACK SUPERVISOR Height 149.9 cm (4' 11) 03/16/2021 8:29 PM STACK SUPERVISOR Body Mass Index 32.92 03/16/2021 8:29 PM STACK SUPERVISOR documented in this encounter Discharge Summaries Nathaly Gonzalez PA-C - 03/21/2021 2:20 PM CST DISCHARGE SUMMARY Patient ID: Fifi Kasper [id number] y.o. 1970 Admit date: 03/16/2021 Discharge date: 03/21/2021 Admission Diagnoses: Malignant neoplasm of lower lobe of right lung (HRC) [C34.31] Discharge Diagnoses: Principal Problem: Malignant neoplasm of lower lobe of right lung (HRC) Surgeon Dr. Gina Tiereny Procedure Procedure(s) (LRB): THORACOSCOPY, RIGHT LOWER LOBE [...] Disp-100 Tablet, R- 11, Q6H (NON-STND) Starting 03/21/2021, Oral, E-Prescribing guaiFENesin 1200 MG Take 1,200 [...] Fri04/18/2006, Oral, FaxPN: LW called/fax pharm:[facility] Fax #:[phone] !! - Potential duplicate medications found. Please [...] will arrange your first appointment with them. K SUPERVISOR documented in this encounter Discharge Instructions Discharge Instr - Other OrdersRuNathaly angeles PA-C - 03/21/2021 12:[address] Surgery Discharge Instructions Please shower and gently wash incisions daily. Change dressings over chest tube sites daily until dry, then leave open to air. No driving until seen by surgeon in follow-up. No heavy lifting or strenuous activity. Watch for signs of infection: redness, fever, warmth to incision, odor from incision-call surgeon's office with any of these symptoms. K SUPERVISOR documented in this encounter Medications at Time [...] including possible side effects. Prescriptions filled by [facility] pharmacy. Belongings checklist reviewed with patient and belongings sent. Care plan issues addressed and education record updated. R: Patient verbalizes understanding and teaches back discharge instructions. Patient discharged by: wheelchair with family. K SUPERVISOR Nathaly Gonzalez PA-C - 03/21/2021 12:33 PM [...] Out: 1740 [Urine:1470; Chest Tube:270] UOP: 100/8h PROCESSING ASSOCIATE: 270/24 Air Leak: No Current Weight: 163 lb (80569 g) Admission Weight: 161 PHYSICAL EXAM: Heart: [...] as long as pain is treated appropriately Kj Mtz MD - 03/21/2021 6:28 AM CST Anesthesiology Acute Pain Progress Note POD# 5 Epidural for pain SUBJECTIVE: Pain at rest 0/10, dynamic pain 1/10 Nausea no Pruritis no OBJECTIVE: Catheter site: old heme ASSESSMENT/PLAN: Continue current therapy yes Likely d/c today by CV surgery Kj Nagy MD 6:29 AM, 03/21/2021 K SUPERVISOR JAYDEN BOLES - 03/21/2021 6:13 AM CST [...] Resp: 17 Temp: 36.9 ??C (98.5 ??F) K SUPERVISOR Emani Joe RN - 03/20/2021 6:13 PM CST Shift 3100-2976 Epidural still running at 10mL/h. Pain well managed. R CT y-site, provider changed dressig in AM. Total CT output 130mL. CXR in afternoon, is on oral lasix. Ambulating in halls with RN, up in chair often. On RA, continuous pulse ox, working on IS. Overall pleasant & can make needs known. K SUPERVISOR Sha Coulter PA-C - 03/20/2021 11:38 AM [...] Out: 2475 [Urine:2225; Chest Tube:250] UOP: 600/8h PROCESSING ASSOCIATE: 170 since 2300 on 03/19/21 Air Leak: No Current Weight: 163 lb (01362 g) Admission Weight: 161 PHYSICAL EXAM: Heart: [...] (4 walks per day) and IS use Dennis Ann MD - 03/20/2021 8:40 AM CST Anesthesiology Acute Pain Progress Note 03/20/2021, 8:40 AM Fifi Kasper [id number] 1970 Iinfusion rate: 10 ml/hr SUBJECTIVE: Pain [...] Discontinue tomorrow: possible, depending on chest tubes. Emani Lema RN - 03/19/2021 6:45 PM CST Shift 3096-4585 Epidural still running at 10mL/h. R CT y-sited & air leak present-- not new occurrence. Total output 200mL. Provided torodol x1 for shoulder/CT site pain w/ relief. C/o generalized itching, provided benadryl x1 with improvement. Is ambulating in halls with RN, up in chair often. On RA, continuous pulse ox. Overall pleasant & can make needs known. K SUPERVISOR Abdoulaye Silvestre APRN, [employer]US[employer] MACHINE OPERATOR - 03/19/2021 10:07 AM CST DAILY PROGRESS [...] Out: 2355 [Urine:2024; Chest Tube:330] UOP: 1050/8h PROCESSING ASSOCIATE: 170/8h Air Leak: No Current Weight: 161 lb (51562 g) Admission Weight: 161 PHYSICAL EXAM: Heart: [...] (4 walks per day) and IS use K SUPERVISOR Tommy Amador MD - 03/19/2021 7:14 AM CST Anesthesiology Acute Pain Progress Note 03/19/2021, 7:14 AM Fifi Kasper [id number] 1970 Surgical Procedure: R Thoracoscopy/RLL Resection Post-op [...] well Discontinue once chest tubes are removed K SUPERVISOR Nathaly Gonzalez PA-C - 03/18/2021 9:45 AM [...] Out: 2720 [Urine:2300; Chest Tube:420] UOP: 350/8h PROCESSING ASSOCIATE: 130/8h Air Leak: Yes Current Weight: 161 lb (51621 g) Admission Weight: 161 PHYSICAL EXAM: Heart: [...] (4 walks per day) and IS use K SUPERVISOR Yandy Clarke MD - 03/18/2021 7:32 AM CST Anesthesiology Acute Pain Progress Note 03/18/2021 Fifi Kasper [id number] 1970 Patient is post-op day # 2 [...] or concerns. Yandy Clarke MD 7:32 AM K SUPERVISOR Marilu Tesfaye RN - 03/18/2021 5:55 AM CST Shift Update: -Patient reports pain is controlled. Pain is worse w/ deep breathing and coughing. -Nubain x1 for itching. -Ambulated to the bathroom and in room without issue. -Had a BM. -Tolerating regular diet. -Keenan removed at 0540. Vitals: 03/18/21 0507 BP: 101/40 Pulse: 67 Resp: 18 Temp: K SUPERVISOR Nathaly Gonzalez PA-C - 03/17/2021 10:23 AM [...] Out: 1371 [Urine:1050; Chest Tube:121] UOP: 800/8h PROCESSING ASSOCIATE: 80/8h Air Leak: Yes Current Weight: 161 lb (97931 g) Admission Weight: 161 PHYSICAL EXAM: Heart: [...] Resp: 16 Temp: 36.9 ??C (98.4 ??F) K SUPERVISOR Adela Parker RN - 03/16/2021 8:45 PM CST ADMIT O: Admitted patient via cart from Post-Anesthesia Recovery to bed # [id number]. D: Patient is alert and oriented x 4 See Admission Assessments. A: Discussed plan of care. See education record for admission education. Oriented to room. Call light in reach. Bed alarm: on R: Patient status: VSS, pain controlled. Will monitor. K SUPERVISOR documented in this encounter Procedure Notes Gina Tierney MD - 03/16/2021 5:56 PM CST [facility] Brief Operative Progress Note Surgery Date: [...] 03/16/2021 1722 Complications / Findings: As expected K SUPERVISOR Gina Tierney MD - 03/16/2021 12:00 AM CST NAME: FIFI KASPER CSN: [id number] OPERATIVE REPORT DATE OF SURGERY: 03/16/2021 : 1970 SURGEON: GINA TIERNEY MD PREOPERATIVE DIAGNOSIS: Adenocarcinoma of the right lower lobe. POSTOPERATIVE DIAGNOSIS: Adenocarcinoma of the right lower lobe. PROCEDURE: Right lower lobectomy with a minimally invasive video-assisted thoracoscopic technique. PACKING CLERK: Nathaly Gonzalez PA-C. SPECIMEN: Station 9, 2, [...] chest was irrigated with saline and two 24-Ethiopian chest tubes were placed and secured with #2 nylon sutures. The myofascial layers were closed with 2-0 Vicryl and deep dermal tissue was closed with 3-0 Vicryl. The skin was closed with 4-0 Monocryl. All sponge, needle, instrument counts were correct at the conclusion of the operation. I, Gina Tierney, was present and scrubbed for the entire procedure. GINA TIERNEY MD TAS/AQS /[id number] K SUPERVISOR documented in this encounter Plan of Treatment Upcoming Encounters Date Type Specialty Care Team Description 01/02/2022 Appointment Radiology PN Kian Winters MBBS [facility] N [phone] (Wo rk) 01/04/2022 Appointment Oncology Kian Winters MBBS [facility] [place] [phone] (Wo rk) documented as of this encounter Procedures Procedure Name Priority Date/Time Associated Diagnosis Comme nts XR CHEST 1 VIEW Routine 03/20/2021 4:41 PM Result s for this STACK SUPERVISOR procedure are i n the results section. HEMOGLOBIN, BLOOD STAT 03/16/2021 6:37 PM Resu lts for this STACK SUPERVISOR procedure are i n the results section. POTASSIUM STAT 03/16/2021 6:37 PM Results f or this STACK SUPERVISOR procedure are i n the results section. SURGICAL PATHOLOGY Routine 03/16/2021 2:48 PM Malignant neopla sm Results for this STACK SUPERVISOR of lower lobe of procedure a re in right lung (HRC) the results section. THORACOSCOPY/THORAC 03/16/2021 1:19 PM Malignant neopl asm OTOMY/LUNG STACK SUPERVISOR of lower lobe of RESECTION right lung (HRC) Case Notes XRAY TAKEN AT END OF CASE BT SECOND DRAW STAT 03/16/2021 10:21 Results f or this AM STACK SUPERVISOR procedure are i n the results section. GLUCOSE, WHOLE BLOOD Routine 03/16/2021 10:17 Res ults for this POCT AM STACK SUPERVISOR procedure are i n the results section. ECG 12 LEAD INPATIENT Specified Time 03/16/2021 10:08 Malignant Results for this AM STACK SUPERVISOR neoplasm of procedure are i n lower lobe of the results right lung (HRC) section. US ANESTHESIA GUIDED STAT 03/16/2021 10:06 Res ults for this BLOCK AM STACK SUPERVISOR procedure are i n the results section. TYPE AND SCREEN Routine 03/16/2021 9:52 Malignant Results f or this AM STACK SUPERVISOR neoplasm of procedure are i n lower lobe of the results right lung (HRC) section. CBC AND DIFFERENTIAL STAT 03/16/2021 9:52 Malignant Resu lts for this PANEL AM STACK SUPERVISOR neoplasm of procedure are i n lower lobe of the results right lung (HRC) section. ANTIBODY SCREEN Routine 03/16/2021 9:52 Malignant Results f or this AM STACK SUPERVISOR neoplasm of procedure are i n lower lobe of the results right lung (HRC) section. BLOOD TYPE Routine 03/16/2021 9:52 Malignant Results for this AM STACK SUPERVISOR neoplasm of procedure are i n lower lobe of the results right lung (HRC) section. COMPLETE BLOOD STAT 03/16/2021 9:52 Malignant Results fo r this COUNT-W/DIFF AM STACK SUPERVISOR neoplasm of procedure are i n lower lobe of the results right lung (HRC) section. BASIC METABOLIC PANEL STAT 03/16/2021 9:52 Malignant Res ults for this AM STACK SUPERVISOR neoplasm of procedure are i n lower lobe of the results right lung (HRC) section. APTT (ACTIVATED STAT 03/16/2021 9:52 Malignant Results f or this PARTIAL AM STACK SUPERVISOR neoplasm of procedure are i n THROMBOPLASTIN TIME lower lobe of the res ults right lung (HRC) section. INR/PROTIME STAT 03/16/2021 9:52 Malignant Results for this AM STACK SUPERVISOR neoplasm of procedure are i n lower lobe of the results right lung (HRC) section. POCT URINE STAT 03/16/2021 9:40 Resu lts for this AM STACK SUPERVISOR procedure are i n the results section. documented in this encounter Results XR Chest 1 View (03/20/2021 4:41 PM STACK SUPERVISOR) Anatomical Region Laterality Modality Chest, Lung Digital Radiography Specimen (Source) Anatomical Collection Method Collection Time Re ceived Time Location / / Volume Laterality 03/20/2021 4:36 PM STACK SUPERVISOR Impressions 03/20/2021 4:47 PM STACK SUPERVISOR COMPARISON: ??03/16/2021 FINDINGS: Patient rotated. Prior ET [...] PA-C RAD GD POTASSIUM (03/16/2021 6:37 PM STACK SUPERVISOR) athologist Signature Potassium 3.7 3.5 - 5.1 03/16/2021 [facility] mmol/L 7:03 PM STACK SUPERVISOR LABORATORY Specimen Anatomical Collection Method / Collection Time Recei leoncio Time (Source) Location / Volume Laterality Blood Venipuncture / 03/16/2021 6:37 03/16/2021 6:50 Unknown PM STACK SUPERVISOR PM STACK SUPERVISOR Gina Tierney MD LAB_1 Performing Organization Address [facility] Phon e Number [facility] [address] [place] [address] HEMOGLOBIN, BLOOD (03/16/2021 6:37 PM STACK SUPERVISOR) athologist Signature Hemoglobin 12.3 12.0 - 15.5 03/16/2021 [facility] g/dL 6:53 PM STACK SUPERVISOR LABORATORY Specimen Anatomical Collection Method / Collection Time Recei leoncio Time (Source) Location / Volume Laterality Blood Venipuncture / 03/16/2021 6:37 03/16/2021 6:50 Unknown PM STACK SUPERVISOR PM STACK SUPERVISOR Gina Tierney MD LAB_1 Performing Organization Address [facility] Phon e Number [facility] [address] [place] [address] Surgical Path (03/16/2021 2:48 PM STACK SUPERVISOR) Component Value Ref Test Analysis Performed At [facility] gist Range Method Time Signature Case Report Surgical Pathology ?Case: [id number] ? 03/21/2021 [facility] Authorizing Provider: ??Gina Estrada MD ?Collected: ? 03/16/2021 1448 ? 3:24 PM LABO RATORY Ordering Location: ? [facility] ?? Received: ?03/16/2021 1459 ? STACK SUPERVISOR Pathologist: ? Augie Escalera, ? Specimens: ?? [...] A. Lymph node, STATION 9, biopsy: 03/21/2021 [facility] Electronically Please see synoptic report for details 3 :24 PM LABORATORY signed by STACK SUPERVISOR Augie Escalera B. Lymph node, STATION 7, [...] report for details Synoptic Report LUNG 03/21/2021 [facility] LUNG: RESECTION - All Specimens 3:24 PM LABORATORY 8th Edition - Protocol posted: 06/16/2019 STACK SUPERVISOR SPECIMEN ?? Procedure: ?Wedge resection ?? Specimen [...] Lymph Nodes (pN): ?pN0 Clinical Malignant 03/21/2021 [facility] Information neoplasm of 3:24 PM LABORATORY lower lobe of STACK SUPERVISOR right lung (HRC) Microscopic Microscopic 03/21/2021 [facility] Description examination is 3:24 PM LABORATORY performed. STACK SUPERVISOR Special Stains The stain controls have been reviewed and stain appropriately. Elastic stain performed on block E6 does not demonstrate visceral pleural invasion. 03/21/2021 [facility] 3:24 PM LABORATORY STACK SUPERVISOR Gross A: 03/21/2021 [facility] Description The specimen is received [facility] for frozen section and labeled with the patient's name and Lymph node, STATION 9. The specimen consists of a 0.2 cm tissue fragment. The specimen is entirely submitted for frozen section in cassette A1. 3:24 PM LABORATORY STACK SUPERVISOR B: The specimen is received [facility] for frozen section and labeled with the patient's name and Lymph node, STATION 7. The specimen consists of multiple fragments of soft tissue aggregating to 1 x 1 x 0.5 c m. The specimen is entirely submitted for frozen section i n cassette B1. DJ C: The specimen is received [facility] for frozen section and labeled with the [...] The remaining parenchyma is purple-brown and spongy. Construction Tech sections are submitted as follows: E1: Frozen section remnant, en face parenchymal margin neare st mass E2: En face bronchial margin E3: En face vascular margins E4: 3 whole possible lymph nodes E5: Additional en face parenchymal margin near mass is E6-E10: Mass entirely submitted with area of pleural puckeri ng E11: Smaller nodules, whole E12: Construction Tech uninvolved parenchyma SH F: The specimen is [...] margin/previous staple line). DJ Intraoperative A: 03/21/2021 [facility] Consultation Frozen section diagnosis (FS A1): Station 9 lymph node -- negative. (Result called into OR 6 by [facility] at 3:11 PM, 03/16/2021) 3:24 PM LABORATORY STACK SUPERVISOR B: Frozen section diagnosis (FS B1): Station 7 lymph node -- negative. (Result called into OR 6 by [facility] at 3:19 PM, 03/16/2021) C: Frozen section diagnosis (FS C1): Station 4R and 2R -- negative. (Result called into OR 6 by [facility] at 4:22 PM, 03/16/2021) E: Frozen section diagnosis (FS E1): Right lower lobe -- positive for carcinoma. (Result called into OR 6 by [facility] at 5:05 PM, 03/16/2021) F: Frozen section diagnosis (FS F1): Right upper lobe wedge -- negative. (Result called into OR 6 by [facility] at 5:41 PM, 03/16/2021) Embedded Images 03/21/2021 [facility] 3:24 PM LABORATORY STACK SUPERVISOR Specimen Anatomical Collection Method Collection Time Receive d Time (Source) Location / / Volume Laterality Tissue LYMPH NODE BIOPSY 03/16/2021 2:48 PM 02/18 2:59 SPECIMEN / Unknown STACK SUPERVISOR PM STACK SUPERVISOR Tissue specimen LYMPH NODE BIOPSY 03/16/2021 3:01 PM 0 03/16/2021 3:08 (specimen) SPECIMEN / Unknown STACK SUPERVISOR PM STACK SUPERVISOR Tissue specimen LYMPH NODE BIOPSY 03/16/2021 3:51 PM 0 03/16/2021 4:07 (specimen) SPECIMEN / Unknown STACK SUPERVISOR PM STACK SUPERVISOR Tissue specimen LYMPH NODE BIOPSY 03/16/2021 4:16 PM 0 03/16/2021 4:35 (specimen) SPECIMEN / Unknown STACK SUPERVISOR PM STACK SUPERVISOR Tissue specimen SPECIMEN FROM LUNG 03/16/2021 4:29 PM 03/16/2021 4:35 (specimen) / Unknown STACK SUPERVISOR PM STACK SUPERVISOR Tissue specimen SPECIMEN FROM LUNG 03/16/2021 5:22 PM 03/16/2021 5:27 (specimen) / Unknown STACK SUPERVISOR PM STACK SUPERVISOR Gina Tierney MD LAB PATHOLOGY Performing Organization Address [facility] Phon e Number [facility] [address] [place] [address] Blood Type second draw (03/16/2021 10:21 AM STACK SUPERVISOR) P athologist Signature ABO O 03/16/2021 [facility] 12:05 PM STACK SUPERVISOR BLOOD BANK RH Negative 03/16/2021 [facility] 12:05 PM STACK SUPERVISOR BLOOD BANK Specimen Anatomical Collection Method / Collection Time Recei leoncio Time (Source) Location / Volume Laterality Blood Venipuncture / 03/16/2021 10:21 Unknown AM STACK SUPERVISOR 10:40 AM STACK SUPERVISOR Gina iTerney MD LAB_1 Performing Organization Address [facility] Phon e Number [facility]LO[facility] [address] [place] [address] Glucose, Whole Blood POCT (03/16/2021 10:17 AM STACK SUPERVISOR) Analysis Performed At Patho logist Time Signature Glucose, Whole 90 70 - 180 03/16/2021 [facility] Blood mg/dL 10:19 AM STACK SUPERVISOR LABORATORY Performing [place] SURG 03/16/2021 [facility] Location 10:19 AM STACK SUPERVISOR LABORATORY Specimen Anatomical Collection Method Collection Time Receive d Time (Source) Location / / Volume Laterality Blood 03/16/2021 10:17 03/16/2021 AM STACK SUPERVISOR 10:19 AM STACK SUPERVISOR Gina Tierney MD LAB_1 Performing Organization Address [facility] Phon e Number [facility] [address] [place] [address] ECG 12 Lead Inpatient (03/16/2021 10:08 AM STACK SUPERVISOR) P athologist Signature Ventricular Rate 54 BPM [facility] Atrial Rate 54 BPM [facility] P-R Interval 154 ms [facility] QRS Duration 86 ms [facility] QT 448 ms [facility] QTc 424 ms [facility] P [place] 55 degrees [facility] R [place] 8 degrees [facility] T [place] 59 degrees [facility] Specimen (Source) Anatomical Collection Method Collection Time Re ceived Time Location / / Volume Laterality 03/16/2021 10:08 AM STACK SUPERVISOR Narrative [facility] - 03/16/2021 10:23 AM STACK SUPERVISOR Sinus bradycardia Poor R wave progression Abnormal ECG No previous ECGs available Confirmed by Freddie Salgado ([id number]) on 10:23:20 AM Procedure Note Freddie Salgado MD - 03/16/2021Format ting of this note might be different from the original. Sinus bradycardia Poor R wave progression Abnormal ECG No previous ECGs available Confirmed by Freddie Salgado ([id number]) on 10:23:20 AM Gina Tierney MD PN ECG ORDERABLES Performing Organization Address City/State/ZIP Code Phon e Number [facility] [address] [place] [address] US Anesthesia Guided Block (03/16/2021 10:06 AM STACK SUPERVISOR) Anatomical Region Laterality Modality Ultrasound Specimen (Source) Anatomical Location Collection Method / Collectio n Time Received Time / Laterality Volume Narrative 03/16/2021 10:06 AM STACK SUPERVISOR If an Anesthesia block was performed please see the Anesthesia encounter for documentation. ??This procedure was performed and interpreted by the performing provider. ?? Tommy Amador MD RAD US Antibody Screen (03/16/2021 9:52 AM STACK SUPERVISOR) [facility] Method Time Signature Antibody Screen Negative 03/16/2021 [facility] Interpretation 11:02 AM STACK SUPERVISOR BLOOD BANK Specimen Anatomical Collection Method / Collection Time Recei leoncio Time (Source) Location / Volume Laterality Blood Venipuncture / 03/16/2021 9:52 03/16/2021 Unknown AM STACK SUPERVISOR 10:02 AM STACK SUPERVISOR Gina Tierney MD LAB_1 Performing Organization Address City/State/ZIP Code Phon e Number [facility] [address] [place] [address] Blood Type (03/16/2021 9:52 AM STACK SUPERVISOR) athologist Signature ABO O 03/16/2021 [facility] 11:02 AM STACK SUPERVISOR BLOOD BANK RH Negative 03/16/2021 [facility] 11:02 AM STACK SUPERVISOR BLOOD BANK Specimen Anatomical Collection Method / Collection Time Recei leoncio Time (Source) Location / Volume Laterality Blood Venipuncture / 03/16/2021 9:52 03/16/2021 Unknown AM STACK SUPERVISOR 10:02 AM STACK SUPERVISOR Gina Tierney MD LAB_1 Performing Organization Address City/State/ZIP Code Phon e Number [facility] [address] [place] [address] (ABNORMAL) Complete Blood Count-W/Diff (03/16/2021 9:52 AM STACK SUPERVISOR) [facility] Method Time Signature WBC 4.8 3.5 - 10.5 03/16/2021 [facility] x10(9)/L 10:08 AM STACK SUPERVISOR LABORATORY RBC 3.83 (L) 3.90 - 03/16/2021 [facility] 5.03 10:08 AM STACK SUPERVISOR LABORATORY x10(12)/L Hemoglobin 12.1 12.0 - 03/16/2021 [facility] 15.5 g/dL 10:08 AM STACK SUPERVISOR LABORATORY HCT 37.2 34.9 - 03/16/2021 [facility] 44.5 % 10:08 AM STACK SUPERVISOR LABORATORY MCV 97.1 80.0 - 03/16/2021 [facility] 100.0 fL 10:08 AM STACK SUPERVISOR LABORATORY MCH 31.6 27.6 - 03/16/2021 [facility] 33.3 pg 10:08 AM STACK SUPERVISOR LABORATORY MCHC 32.5 31.5 - 03/16/2021 [facility] 35.2 g/dL 10:08 AM STACK SUPERVISOR LABORATORY RDW 13.5 11.9 - 03/16/2021 [facility] 15.5 % 10:08 AM STACK SUPERVISOR LABORATORY Platelets 179 150 - 450 03/16/2021 [facility] x10(9)/L 10:08 AM STACK SUPERVISOR LABORATORY Automated NRBC 0 <=0 /100 03/16/2021 [facility] WBC 10:08 AM STACK SUPERVISOR LABORATORY Neutrophil 3.1 1.7 - 7.0 03/16/2021 [facility] Absolute 10(9)/L 10:08 AM STACK SUPERVISOR LABORATORY Lymphocyte 1.3 1.0 - 4.8 03/16/2021 [facility] Absolute 10(9)/L 10:08 AM STACK SUPERVISOR LABORATORY Monocytes 0.3 0.2 - 0.9 03/16/2021 [facility] Absolute 10(9)/L 10:08 AM STACK SUPERVISOR LABORATORY Eosinophil 0.0 0.0 - 0.5 03/16/2021 [facility] Absolute 10(9)/L 10:08 AM STACK SUPERVISOR LABORATORY Basophil 0.0 0.0 - 0.3 03/16/2021 Y[facility] Absolute 10(9)/L 10:08 AM STACK SUPERVISOR LABORATORY Immature Gran % 0.2 0.0 - 0.5 03/16/2021 YAZIDISM % 10:08 AM STACK SUPERVISOR LABORATORY Specimen Anatomical Collection Method / Collection Time Recei leoncio Time (Source) Location / Volume Laterality Blood Venipuncture / 03/16/2021 9:52 03/16/2021 Unknown AM STACK SUPERVISOR 10:02 AM STACK SUPERVISOR Gina Tierney MD LAB_1 Performing Organization Address City/[facility] Phon e Number [facility] [place] [address] APTT (ACTIVATED PARTIAL THROMBOPLASTIN TIME (03/16/2021 9:52 AM STACK SUPERVISOR) P athologist Signature APTT 26.4 22.5 - 36.5 03/16/2021 YAZIDISM Seconds 10:20 AM STACK SUPERVISOR LABORATORY Specimen Anatomical Collection Method / Collection Time Recei leoncio Time (Source) Location / Volume Laterality Blood Venipuncture / 03/16/2021 9:52 03/16/2021 Unknown AM STACK SUPERVISOR 10:02 AM STACK SUPERVISOR Gina Tierney MD LAB_1 Performing Organization Address City/[facility] Phon e Number [facility] [address] [place] [address] INR/PROTIME (03/16/2021 9:52 AM STACK SUPERVISOR) P athologist Signature Protime 13.0 11.8 - 14.6 03/16/2021 YAZIDISM Seconds 10:20 AM STACK SUPERVISOR LABORATORY INR 1.0 0.9 - 1.1 03/16/2021 YAZIDISM 10:20 AM STACK SUPERVISOR LABORATORY Specimen Anatomical Collection Method / Collection Time Recei leoncio Time (Source) Location / Volume Laterality Blood Venipuncture / 03/16/2021 9:52 03/16/2021 Unknown AM STACK SUPERVISOR 10:02 AM STACK SUPERVISOR Narrative [facility] - 03/16/2021 10:20 AM STACK SUPERVISOR Therapeutic range determined by protocol established by anticoagulation provider. Gina Tierney MD LAB_1 Performing Organization Address City/[facility]/ZIP [facility] Phon e Number [facility] [address] [place] [address] (ABNORMAL) Basic Metabolic Panel (03/16/2021 9:52 AM STACK SUPERVISOR) Analysis Performed At [facility] logist Time Signature Sodium 143 136 - 145 03/16/2021 YAZIDISM mmol/L 10:29 AM STACK SUPERVISOR LABORATORY Potassium 3.9 3.5 - 5.1 03/16/2021 YAZIDISM mmol/L 10:29 AM STACK SUPERVISOR LABORATORY Chloride 116 (H) 98 - 109 03/16/2021 YAZIDISM mmol/L 10:29 AM STACK SUPERVISOR LABORATORY CO2 20 20 - 29 03/16/2021 YAZIDISM mmol/L 10:29 AM STACK SUPERVISOR LABORATORY Anion Gap 7 7 - 16 03/16/2021 YAZIDISM mmol/L 10:29 AM STACK SUPERVISOR LABORATORY Calcium 8.6 8.4 - 10.4 03/16/2021 YAZIDISM mg/dL 10:29 AM STACK SUPERVISOR LABORATORY BUN 14 7 - 26 03/16/2021 YAZIDISM mg/dL 10:29 AM STACK SUPERVISOR LABORATORY Creatinine 0.94 0.55 - 03/16/2021 YAZIDISM 1.02 mg/dL 10:29 AM STACK SUPERVISOR LABORATORY GFR, Estimated >60 >60 03/16/2021 YAZIDISM mL/min/1.7 10:29 AM STACK SUPERVISOR LABORATORY 3m2 Glucose 105 (H) 70 - 100 03/16/2021 YAZIDISM mg/dL 10:29 AM STACK SUPERVISOR LABORATORY Comment: The given reference range is fo r the fasting state. Non-fasting reference range for glucose is 70 - 180 mg/dL. Specimen Anatomical Collection Method / Collection Time Recei leoncio Time (Source) Location / Volume Laterality Blood Venipuncture / 03/16/2021 9:52 03/16/2021 Unknown AM STACK SUPERVISOR 10:01 AM STACK SUPERVISOR Gina Tierney MD LAB_1 Performing Organization Address City/[facility] Phon e Number [facility] [address] [place] [address] POCT urine - Surgery Use Only (03/16/2021 9:40 AM STACK SUPERVISOR) [facility] gist Method Time Signature Urine Negative Negative POCT Test - POC Control Line Yes POCT Present, Clear Background - Internal control Cartridge Lot# [id number] POCT Specimen (Source) Anatomical Collection Method Collection Time Re ceived Time Location / / Volume Laterality Urine 03/16/2021 9:40 AM STACK SUPERVISOR Gina Tierney MD ET POINT OF CARE TEST ENTER/ EDIT ORDERABLES Performing Organization Address City/State/ZIP Code Phon e Number POCT documented in this encounter Visit Diagnoses Diagnosis Malignant neoplasm of lower lobe of righ t lung (HRC) - Primary Malignant neoplasm of lower lobe of righ t lung (HRC) Pain Generalized pain documented in this encounter Admitting Diagnoses Diagnosis Malignant neoplasm of lower lobe of righ t lung (HRC) documented in this encounter Administered Medications Inactive Administered Medications - up to 3 most recent administrations Medication Order MAR Action Action Date Dose Rate Site acetaminophen (TYLENOL) tablet Given 03/21/2021 1:28 PM STACK SUPERVISOR 1,00 0 mg 1,000 mg 1,000 mg, Oral, Q6H (NON-STND), First dose on Fri03/17/21 at 0200, Until Discontinued Given 03/21/2021 7:48 AM STACK SUPERVISOR 1,000 mg Given 03/20/2021 8:16 PM STACK SUPERVISOR 1,000 mg acetaminophen (TYLENOL) tablet 1,000 mg Given 03/16/2021 7:23 PM STACK SUPERVISOR 1,000 mg 1,000 mg, Oral, ONCE, On Fri03/16/21 at 1930, For 1 dose, Indications: Pain, PACU (only) bolus epidural with existing solution (for PACU Given 03/16/2021 7:19 PM STACK SUPERVISOR 4 mL ONLY) 4 mL 4 mL, Epidural, ONCE, On Fri03/16/21 at 1945, For 1 dose, PACU/Recovery ceFAZolin (aka ANCEF) 2 g in dextrose Started 03/17/2021 5:55 AM STACK SUPERVISOR 2 g 200 mL/hr 100 ml IVPB 2 g, Intravenous, Administer over 30 Minutes, Q8H (NON-STND), First dose on Fri03/16/21 at 2200, For 2 doses, Post-op Started 03/16/2021 9:55 PM STACK SUPERVISOR 2 g 200 mL/hr dextrose (D50) injection [...] capsule 25 mg Given 03/19/2021 1:36 PM STACK SUPERVISOR 25 mg 25 mg, Oral, Q4H PRN, Itching, if able to take oral medications, Starting on Fri03/16/21 at 2010, Until Fri03/21/21 at 1620, Give if nalbuphine (NUBAIN) not effective and if able to take oral medications., Post-op Given 03/17/2021 12:23 PM STACK SUPERVISOR 25 mg diphenhydrAMINE (BENADRYL) injection 25 mg 25 mg, Intravenous, Q4H PRN, Itching, if unable to take oral medications, Starting on Fri03/16/21 at 2010, Until Fri03/21/21 at 1620, Give if nalbuphine (NUBAIN) not effective and if unable to take oral medications., Pos t-op fentaNYL (SUBLIMAZE) injection 50-100 mc g Given 03/16/2021 10:45 AM STACK SUPERVISOR 50 mcg 50-100 mcg, Intravenous, [id number], Pain, Sedation, Procedure, Starting on Fri03/16/21 at 1006, Until Fri03/16/21 at 2007, For 2 doses, As directed by anesthesiologist, Pre-op fentaNYL citrate (PF) Rate/Dose Verify 03/21/2021 6:02 AM STACK SUPERVISOR 10 mL/hr (SUBLIMAZE) 5 mcg/mL, bupivacaine (PF) (SENSORCAINE) 0.125 % in sodium chloride 0.9 % 100 mL (PRESERVATIVE FREE) epidural CADD infusion Epidural, CONTINUOUS, Starting on Fri03/16/21 at 1530, Run epidural solution at 10 ml/hour per infusion pump Rate/Dose Verify 03/21/2021 3:20 AM STACK SUPERVISOR 10 mL/hr Started 03/20/2021 10:47 PM STACK SUPERVISOR 10 mL/hr FLUoxetine (PROZAC) capsule 10 mg Given 03/21/2021 7:48 AM STACK SUPERVISOR 10 mg 10 mg, Oral, DAILY, First dose on Fri03/17/21 at 0800, Until Discontinued Given 03/20/2021 8:15 AM STACK SUPERVISOR 10 mg Given 03/19/2021 8:58 AM STACK SUPERVISOR 10 mg furosemide (LASIX) tablet 20 mg Given 03/21/2021 7:48 AM STACK SUPERVISOR 20 mg 20 mg, Oral, DIURETIC - 0800/1700, First dose on Fri03/18/21 at 1000, Until Discontinued Given 03/20/2021 5:34 PM STACK SUPERVISOR 20 mg Given 03/20/2021 8:15 AM STACK SUPERVISOR 20 mg glucagon rDNA (diagnostic) (GLUCAGEN) in [...] (MUCINEX) extended release Given 03/21/2021 7:48 AM STACK SUPERVISOR 1,200 mg tablet 1,200 mg 1,200 mg, Oral, BID, First dose on Fri03/16/21 at 2200, Until Discontinued, Tablet should be swallowed whole. Take with a full glass of water. Given 03/20/2021 8:05 PM STACK SUPERVISOR 1,200 mg Given 03/20/2021 8:14 AM STACK SUPERVISOR 1,200 mg hydrocortisone 2.5 % cream 1 Given 03/20/2021 10:59 PM STACK SUPERVISOR 1 Alexandrea lication Back Application 1 Application, Topical, BID PRN, Rash, Itching, Starting on Fri03/16/21 at 2008, Apply topically to skin Hazardous waste disposal required. hydrOXYzine pamoate (VISTARIL) capsule 2 5 mg Given 03/21/2021 6:08 AM STACK SUPERVISOR 25 mg 25 mg, Oral, Q6H PRN, Itching, Starting on Fri03/16/21 at 2008, Until Fri03/21/21 at 1620 Given 03/20/2021 10:57 PM STACK SUPERVISOR 25 mg Given 03/19/2021 8:17 PM STACK SUPERVISOR 25 mg ibuprofen (MOTRIN) tablet 400 mg Given 03/21/2021 11:35 AM STACK SUPERVISOR 400 mg 400 mg, Oral, QID, First dose on Fri03/21/21 at 1200, Until Discontinued, Give with food or milk. ketorolac (TORADOL) injection 15 mg Given 03/20/2021 8:18 PM STACK SUPERVISOR 15 mg 15 mg, Intravenous, Q6H PRN, Other, Mild Pain (pain score 1-4), Starting on Fri03/16/21 at 2008, Until Fri03/21/21 at 1105, For 5 days, Do not give both ibuprofen and ketorolac. May give ketorolac in addition to acetaminophen-codeine or oxycodone. Given 03/19/2021 9:02 AM STACK SUPERVISOR 15 mg Given 03/18/2021 2:17 PM STACK SUPERVISOR 15 mg lactated ringers infusion Started 03/16/2021 4:56 PM STACK SUPERVISOR 25 mL/hr, Intravenous, CONTINUOUS, Starting on Fri03/16/21 at 0945, Administer on all preop surgery patients, ages 12 and older, unless specified differently in the Protocol for Preop Initiation of IV fluids Order Set., Pre-op Restarted 03/16/2021 1:47 PM STACK SUPERVISOR Started 03/16/2021 10:08 AM STACK SUPERVISOR 25 mL/hr 25 mL/hr lidocaine PF (XYLOCAINE) 1 % injection Given 03/16/2021 10:08 AM STACK SUPERVISOR 0.3 mL 0.1-0.3 mL 0.1-0.3 mL, Intradermal, ONCE, On Fri03/16/21 at 0945, For 1 dose, Lidocaine to be used for IV starts unless patient refuses., Pre-op metoprolol succinate (TOPROL XL) extended Given 03/20/2021 8:05 PM STACK SUPERVISOR 100 mg release tablet 100 mg 100 mg, Oral, DAILY, First dose on 03/17/21 at 2000, Until Discontinued, Tablet may be split in half, but not crushed. Given 03/19/2021 8:07 PM STACK SUPERVISOR 100 mg Given 03/18/2021 8:16 PM STACK SUPERVISOR 100 mg metoprolol succinate (TOPROL XL) extended Given 03/18/2021 8:41 AM STACK SUPERVISOR 50 mg release tablet 50 mg 50 mg, Oral, DAILY, First dose on 03/17/21 at 0800, Until Discontinued, Tablet may be split in half, but not crushed. Given 03/17/2021 8:04 AM STACK SUPERVISOR 50 mg midazolam (VERSED) injection 1-2 mg Given 03/16/2021 10:47 AM STACK SUPERVISOR 1 mg 1-2 mg, Intravenous, [id number], Sedation, Anxiety, Procedure, Starting on Fri03/16/21 at 1006, Until Fri03/16/21 at 2007, As directed by anesthesiologist MAX Dose 2mg, Pre-op Given 03/16/2021 10:45 AM STACK SUPERVISOR 1 mg NaCl 0.9%-KCl 20 mEq/liter Rate/Dose Change 03/19/2021 11:29 AM 10 mL/hr infusion STACK SUPERVISOR Intravenous, at 10 mL/hr, CONTINUOUS, Starting on Fri03/16/21 at 2030, Post-op Rate/Dose Verify 03/19/2021 10:48 AM STACK SUPERVISOR 75 mL/hr New Bag Started 03/19/2021 5:15 AM STACK SUPERVISOR 75 mL/hr nalbuphine (NUBAIN) 1-2 mg in sodium chloride Given 03/19/19 3:31 AM STACK SUPERVISOR 2 mg 0.9 % 1-2 mL syringe 1-2 mg, Intravenous, Q4H PRN, Itching, Starting on Fri03/16/21 at 2010, Notify pharmacy to compound and send dose when needed., Post-op Given 03/18/2021 8:14 PM STACK SUPERVISOR 2 mg Given 03/18/2021 2:17 PM STACK SUPERVISOR 2 mg naloxone (NARCAN) injection 0.08 mg [...] (ROXICODONE) immediate release Given 03/21/2021 11:35 AM STACK SUPERVISOR 5 mg tablet 5 mg 5 mg, Oral, Q6H PRN, Pain, Severe Pain (pain score 8-10), Starting on Fri03/21/21 at 1105, Until Fri03/21/21 at 1620 sodium chloride 0.9% 0.9 % injection - ADS Given 03/17/2021 7:56 PM STACK SUPERVISOR Override Pull Starting on 03/17/21 at 1948, Until 03/17/21 at 1956, For 1 dose, Ankit Jett: cabinet override sodium chloride 0.9% injection 10-60 mL Given 03/20/2021 8:17 PM STACK SUPERVISOR 20 mL 10-60 mL, Intravenous, BID, First [...] - ADS Override Given 03/16/2021 10:00 PM STACK SUPERVISOR Lips Pull Starting on Fri03/16/21 at 1930, For 1 dose, Jemima Beverly: cabinet override documented in this encounter Active and Recently Administered Medications Times are shown in STACK SUPERVISOR. Scheduled Medication Order 03/19/2021 03/20/2021 03/21/2021 acetaminophen [...] JAYDEN BOLES) 0748 (Given - Provider: Montserrat Chavez, COLETTE) 1,200 mg, Oral, BID, First dose on [...] PA-C) 0800 (Automatically Held - Provider: Marguerite Gonzaelz PA-C)1620 (Unheld by provider in Manage Orders - Provider: Md Mcfadden Template [facility]) 50 mg, Oral, DAILY, First dose on Sat at 0800, Until Discontinued, Tablet may be split in half, but not crushed. sodium chloride 0.9% injection 10-60 mL 2016 (Given - Provider: JAYDEN BOLES) 0759 (Not Given - Provider: Montserrat zaman RN [...] JAYDEN BOLES) 0217 (Rate/Dose Verify - Provider: RUSTJAYDEN [place])0345 (New Syringe/Cassette - Provider: JAYDEN BOLES)1319 (Started - Provider: Emani Joe RN)2016 (Rate/Dose Verify - Provider: JAYDEN BOLES) 0320 (Rate/Dose Verify - Provider: JAYDEN BOLES)0602 (Rate/Dose Verify - Provider: JAYDEN BOLES) Epidural, CONTINUOUS, Starting on Fri at 1530, Run epidural solution at 10 ml/hour per infusion pump 2247 (Started - Provider: [facility] JAYDEN HOLLEY) NaCl 0.9%-KCl 20 [...] Sibley) 2256 (Given - Provider: JAYDEN BOLES) 607 ( Given - Provider: JAYDEN BOLES) 25 [...]
Post-op documented in this encounter Care Teams Basic Acoustic Analyst Relationship Specialty Start Date End Date David Choudhury MD PCP - General Family Practice 03/16/21 [address] [place] [address] documented as of this encounter
--- OUTSIDE RECORDS SUMMARY | 2021-12-03 08:32 | XMS_ITS | Encounter Summary ---
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 documented in this encounter Results LABORATORY REPORT (03/23/2021) Narrative This result has an attachment that is no t available. Interface Provider MD DUMMY/OTHER/AR documented in this encounter Visit Diagnoses Not on filedocumented in this encounter Care Teams Education Supervisor Relationship Specialty Start Date End Date David Choudhury MD PCP - General Family Practice 03/16/21 [address] [facility] [place] [address] documented as of this encounter
--- OUTSIDE RECORDS SUMMARY | 2021-12-03 08:32 | XMS_ITS | Encounter Summary ---
:1970 Author Organization [facility] Address [address] [place] [address] Care Team Providers Name Role Phone David Choudhury MD Primary Care Provider [phone] Reason for Visit Reason Comments COVID Questions COUGH Encounter Details Date Type Department Care Team Description 09/17/2021 Nurse Triage Careline Unassigned, COVID Questions; COUGH [address] 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 Verified patient identity: Yes Situation/Background (brief explanation [...] symptoms. Protocols used: Coronavirus (COVID-19) Diagnosed or [id number] Plan: pt is en route to her [...] Kian Winters MBBS [address] [facility] [place] [address] (Wo rk) 01/04/2022 Appointment Oncology Kian Winters MBBS [address] [facility] [place], [place] [address] (Wo rk) documented as of this encounter Visit Diagnoses Not on filedocumented in this encounter Care Teams Fuel Cell Designer Relationship Specialty Start Date End Date David Choudhury MD PCP - General Family Practice 03/16/21 [address] [facility] [place] [address] documented as of this encounter
--- OUTSIDE RECORDS SUMMARY | 2021-12-03 08:32 | XMS_ITS | Encounter Summary ---
:1970 Author Organization [facility] Address [address] [place] [address] Care Team Providers Name Role Phone David Choudhury MD Primary Care Provider [phone] Reason for Referral Procedure/Equipment (Routine) - Incomplete Specialty Diagnoses / Procedures Referred By Contact Refer red To Contact Diagnoses Lung mass Greyson Ovalle MD Procedures XR Chest 2 Views [address] [place], [place] [address] Referral ID Status Reason Start Date Expiration Date Visits V isits Requested Authorized [id number] Incomplete 09/17/2021 12/17/2022 1 1 Reason for Visit Reason Comments Follow-up Encounter Details Date Type Department Care Team Description 09/17/2021 Office Visit Specialty Center [address] Greyson Ovalle, Lung mass (Primary Pulmonary Medicine MD Dx) [address] [place] [address] [place] [address] [place], [place] [phone] (Wo rk) Social History Tobacco Use Types [...] Date Recorded Female 02/21/2021 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 Hull, followed in Oncology by Dr. Alvarez. She has been doing well from this perspective, but when her son moved back home for his Social Work graduate internship from college, she got covid-19 on [...] 01/02/2022 Appointment Radiology PN Kian Winters, JUANCARLOS [address] [facility] [address] [address] (Wo rk) 01/04/2022 Appointment Oncology Kian Winters JUANCAROLS [place] [address] [facility] [place] [address] (Wo rk) documented as of this encounter [...] chest documented in this encounter Care Teams Cyber Policy And Strategy Planner Relationship Specialty Start Date End Date David Choudhury MD PCP - General Family Practice 03/16/[address] [place] [address] documented as of this encounter
--- OUTSIDE RECORDS SUMMARY | 2021-12-03 08:32 | XMS_ITS | Encounter Summary ---
:1970 Author Organization [facility] Address [address] [place] [address] Care Team Providers Name Role Phone David Choudhury MD Primary Care Provider [phone] Reason for Referral Procedure/Equipment (Routine) - Incomplete Specialty Diagnoses / Procedures Referred By Contact Refer red To Contact Diagnoses Malignant neoplasm of lower lobe of right lung (HRC) Kian Winters, JUANCARLOS Procedures CT Chest WO IV Cont [address] [place], [place] [address] Referral ID Status Reason Start Date Expiration Date Visits V isits Requested Authorized [id number] Incomplete 07/09/2021 10/08/2022 1 1 Reason for Visit Reason Comments Follow-up Encounter Details Date Type Department Care Team Description 07/09/2021 [facility] Kian Winters, Malignant neoplasm Encounter [facility] JUANCARLOS of [facility] Oncology [address] [place] right lung (HRC) [address] [facility] (Primary Dx) [place] [phone] Social History Tobacco Use Types Packs/Day Years [...] Recorded Female 02/21/2021 8:36 PM DIRECTOR OF MARKETING COMMUNICATIONS documented as of this encounter Last Filed [...] Body Mass Index 32.32 04/02/2021 11:18 AM DIRECTOR OF MARKETING COMMUNICATIONS documented in this encounter Medications at Time [...] 10 Take 10 mg by mouth 0 110 10/2020 MG capsule daily. guaiFENesin (MUCINEX) TAKE [...] as of this encounter Progress Notes Kian Winters, JUANCARLOS - 07/09/2021 1:30 PM CDT NAME: MARII [...] episode previously. She was evaluated at the [facility] Emergency Room. 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 PAST HISTORY: 1. Migraines. 2. Ureteric stone, status post lithotripsy. 3. Appendectomy in December 2020. MEDICATIONS: Reviewed. SOCIAL HISTORY: Does not smoke and has never smoked. Lives with in [place]. They have 3 children. 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 FAMILY HISTORY: Her father had developed [...] is alert and oriented. LABS: Reviewed in epic. IMAGING: CT chest from 06/29/21: IMPRESSION: Interval [...] 01/02/2022 Appointment Radiology PN Kian Winters MBBS [address] [facility] [place] [address] (Wo rk) 01/04/2022 Appointment Oncology Kian Winters MBBS [address] [facility] [place] [address] (Wo rk) Scheduled Orders Name Type Priority Associated Diagnoses Order S chedule CT Chest WO IV Cont Imaging New Routine Malignant neoplasm of Expected: 07/09/2021 lower lobe of right lung (Ap proximate), (HRC) Expires: 2022 documented as of this encounter Visit Diagnoses Diagnosis Malignant neoplasm of lower lobe of righ t lung (HRC) - Primary documented in this encounter Care Teams Family Coach Relationship Specialty Start Date End Date David Choudhury MD PCP - General Family Practice 03/16/21 [address] [place] [address] documented as of this encounter
--- OUTSIDE RECORDS SUMMARY | 2021-12-03 08:32 | XMS_ITS | Encounter Summary ---
:1970 Author Organization [facility] Address [address], [place] [address] Care Team Providers Name Role Phone David Choudhury MD Primary Care Provider [phone] Reason for Referral Procedure/Equipment (Routine) - Incomplete Specialty Diagnoses / Procedures Referred By Contact Refer red To Contact Diagnoses Malignant neoplasm of lower lobe of right lung (HRC) Pedro Hull MD Procedures XR Chest [address] [place], [place] [address] Referral ID Status Reason Start Date Expiration Date Visits V isits Requested Authorized [id number] Incomplete 04/02/2021 07/02/2022 1 1 ER PLATER Reason for Visit Reason Comments Post-Op Check Encounter Details Date Type Department Care Team Description 04/02/2021 Office Visit [facility] Pedro Hull, Malignant neoplasm Cardiothoracic Surge ry MD of lower lobe of [address] [facility]. [address] right lung (HRC) [place] [place] [address] (Primary Dx) [address] [place], [place] [phone] [id number] Social History Tobacco Use Types Packs/Day Years [...] at Date Recorded Female 02/21/2021 8:36 PM COPPER PLATER documented as of this encounter Last Filed Vital Signs Vital Sign Reading Time Taken Comments Blood Pressure 97/51 04/02/2021 11:18 AM COPPER PLATER Pulse 63 04/02/2021 11:18 AM COPPER PLATER Temperature - - Respiratory Rate - - Oxygen Saturation - - Inhaled Oxygen Concentration - - Weight 72.6 kg (160 lb) 04/02/2021 11:18 AM COPPER PLATER Height 149.9 cm (4' 11) 04/02/2021 11:18 AM COPPER PLATER Body Mass Index 32.32 04/02/2021 11:18 AM COPPER PLATER documented in this encounter Patient Instructions Patient InstructionsAyse Malone LPN - 04/02/2021 11:30 AM CST Thank you for choosing Cardiothoracic Surgery at [facility]! For follow-up medical questions for the nurse, please call Yennifer at [phone]. For after hours emergencies, follow the instructions to be transferred to the harmonica maker provider. For appointments and scheduling, please call [phone]. For after business hours or weekend concerns needing immediate attention, please dial [phone] and the hydro operator will assist you. For questions regarding billing, please contact Patient [employer] at [phone]. ER PLATER documented in this encounter Progress Notes Pedro [...] any time for further questions or concerns. ER PLATER documented in this encounter Plan of Treatment Upcoming Encounters Date Type Specialty Care Team Description 01/02/2022 Appointment Radiology PN Kian Winters MBBS [address] [facility], [place] [phone] (Wo rk) 01/04/2022 Appointment Oncology Kian Winters MBBS [address] [facility] [phone] (Wo rk) documented as of this encounter Results XR Chest 1 View (04/02/2021 10:45 AM COPPER PLATER) Anatomical Region Laterality Modality Chest, Lung Digital Radiography Specimen (Source) Anatomical Collection Method Collection Time Re ceived Time Location / / Volume Laterality 04/02/2021 10:40 AM COPPER PLATER Impressions 04/02/2021 12:45 PM COPPER PLATER COMPARISON: ??03/20/2021. FINDINGS: ??One view was obtained. [...] (HRC) documented in this encounter Care Teams Claims Investigator Relationship Specialty Start Date End Date David Choudhury MD PCP - General [facility] Practice 03/16/21 [address] [address] documented as of this encounter
--- OUTSIDE RECORDS SUMMARY | 2021-12-03 08:32 | XMS_ITS | Encounter Summary ---
:1970 Author Organization [facility] [employer] [facility] Address [address], [place] [address] Care Team Providers Name Role Phone David Choudhury MD Primary Care Provider [phone] Reason for Visit Procedure/Equipment (Routine) - Incomplete Specialty Diagnoses / Procedures Referred By Contact Refer red To Contact Diagnoses Malignant neoplasm of lower lobe of right lung (HRC) Pedro Hull MD Procedures XR Chest 1 View [address] [place], [place] [address] Referral ID Status Reason Start Date Expiration Date Visits V isits Requested Authorized [id number] Incomplete 04/02/2021 07/02/2022 1 1 Encounter Details Date Type Department Care Team Description 04/02/2021 [facility]illary [facility] Pedro Hull, Maligna nt neoplasm Procedure X-Ray of lower lobe of [address] right lung (HRC) [facility]. [facility] [phone] Social History Tobacco Use Types Packs/Day Years [...] at Date Recorded Female 02/21/2021 8:36 PM STAMP CLASSIFIER documented as of this encounter Plan of Treatment Upcoming Encounters Date Type Specialty Care Team Description 01/02/2022 Appointment Radiology PN Kian Winters, JUANCARLOS [address] [facility], [place] [id number] (Wo rk) 01/04/2022 Appointment Oncology Kian Winters MBBS [address] [facility] [phone] (Wo rk) documented as of this encounter Procedures Procedure Name Priority Date/Time Associated Diagnosis Comme nts XR CHEST 1 VIEW Routine 04/02/2021 10:45 AM Malignant neoplasm of Results for this STAMP CLASSIFIER lower lobe of right procedur e are in lung (HRC) the results section. documented in this encounter Results XR Chest 1 View (04/02/2021 10:45 AM STAMP CLASSIFIER) Anatomical Region Laterality Modality Chest, Lung Digital Radiography Specimen (Source) Anatomical Collection Method Collection Time Re ceived Time Location / / Volume Laterality 04/02/2021 10:40 AM STAMP CLASSIFIER Impressions 04/02/2021 12:45 PM STAMP CLASSIFIER COMPARISON: ??03/20/2021. FINDINGS: ??One view was obtained. [...] (HRC) documented in this encounter Care Teams Personal Development Mentor Relationship Specialty Start Date End Date David Choudhury MD PCP - General Family Practice 03/16/[address] [id number] documented as of this encounter
--- OUTSIDE RECORDS SUMMARY | 2021-12-03 08:33 | XMS_ITS | Encounter Summary ---
:1970 [facility] Address [address], [place] [address] Care Team Providers Name Role Phone David Choudhury MD Primary Care Provider [phone] Reason for Visit (Routine) - Incomplete Specialty Diagnoses / Procedures Referred By Contact Refer red To Contact Procedures Tommy Amador MD US Anesthesia Guided Block [address] [place], [place] [address] Referral ID Status Reason Start Date Expiration Date Visits V isits Requested Authorized [id number] Incomplete 03/16/2021 06/15/2022 1 1 Encounter Details Date Type Department Care Team Description 03/16/2021 Ancillary Procedure Radiology PACS [address] [place] [id number] Social History Tobacco Use Types Packs/Day Years [...] at Date Recorded Female 02/21/2021 8:36 PM TOWEL WEAVER documented as of this encounter Plan of Treatment Upcoming Encounters Date Type Specialty Care Team Description 01/02/2022 Appointment Radiology PN Kian Winters [place], JUANCARLOS [address] [place] [address] [phone] (Wo rk) 01/04/2022 Appointment Oncology Evan Wintersnick [place], JUANCARLOS [address] [place] [address] [phone] (Wo rk) documented as of this encounter Procedures Procedure Name Priority Date/Time Associated Comments Diagnosis US ANESTHESIA GUIDED STAT 03/16/2021 10:06 AM Results for this BLOCK TOWEL WEAVER procedure are i n the results section. documented in this encounter Results US Anesthesia Guided Block (03/16/2021 10:06 AM TOWEL WEAVER) Anatomical Region Laterality Modality Ultrasound Specimen (Source) Anatomical Location Collection Method / Collectio n Time Received Time / Laterality Volume Narrative 03/16/2021 10:06 AM TOWEL WEAVER If an Anesthesia block was performed please see the Anesthesia encounter for documentation. ??This procedure was performed and interpreted by the performing provider. ?? Tommy Amador MD [facility] US documented in this encounter Visit Diagnoses Not on filedocumented in this encounter Care Teams Soap Chipper Relationship Specialty Start Date End Date David Choudhury MD PCP - General Family Practice 03/16/21 [address] [place] [address] documented as of this encounter
--- OUTSIDE RECORDS SUMMARY | 2021-12-03 08:33 | XMS_ITS | Encounter Summary ---
:1970 Author Organization [facility] Address [address], [place] [address] Care Team Providers Name Role Phone David Choudhury MD Primary Care Provider [phone] Reason for Visit Auth/Cert Specialty Diagnoses / Procedures Referred By Contact Refer red To Contact Diagnoses Malignant neoplasm of lower lobe of right lung (HRC) Procedures THORACOSCOPY/THORACOTOMY/LUNG RESECTION Referral ID Status Reason Start Date Expiration Date Visits Requ ested Visits Authorized [id number] 1 1 Encounter Details Date Type Department Care Team Description 03/16/2021 Surgery Confucianism Operating Aretha Tierney MD THORACOSCOPY, RIGHT Room [address] LOWER LOBE LUNG [address] [place], [place] RESECTION, [place] [address] LOBE [place] [id number] [phone] Social History Tobacco Use Types Packs/Day Years [...] at Date Recorded Female 02/21/2021 8:36 PM BRAILLE TYPIST documented as of this encounter Last Filed Vital Signs Vital Sign Reading Time Taken Comments Blood Pressure 104/62 03/16/2021 11:42 AM BRAILLE TYPIST Pulse 57 03/16/2021 11:42 AM BRAILLE TYPIST Temperature 36.6 ??C (97.8 ??F) 03/16/2021 9:49 AM BRAILLE TYPIST Respiratory Rate 19 03/16/2021 11:42 AM BRAILLE TYPIST Oxygen Saturation 97% 03/16/2021 11:42 AM BRAILLE TYPIST Inhaled Oxygen Concentration - - Weight 73 kg (160 lb 14.4 oz) 03/16/2021 9:49 AM BRAILLE TYPIST Height 149.9 cm (4' 11) 03/16/2021 9:49 AM BRAILLE TYPIST Body Mass Index 32.92 03/16/2021 8:29 PM BRAILLE TYPIST documented in this encounter Discharge Summaries Nathaly Gonzalez PA-C - 03/21/2021 2:20 PM CST DISCHARGE SUMMARY Patient ID: Fifi Kasper [id number] y.o. 1970 Admit date: 03/16/2021 Discharge [...] Fri04/18/2006, Oral, FaxPN: LW called/fax pharm:[facility] Fax #:[phone] !! - Potential duplicate medications found. Please [...] will arrange your first appointment with them. LLE TYPIST documented in this encounter Discharge Instructions Discharge Instr - Other OrdersRuNathaly angeles PA-C - 03/21/2021 12:[address] Surgery Discharge Instructions Please shower and gently wash incisions daily. Change dressings over chest tube sites daily until dry, then leave open to air. No driving until seen by surgeon in follow-up. No heavy lifting or strenuous activity. Watch for signs of infection: redness, fever, warmth to incision, odor from incision-call surgeon's office with any of these symptoms. LLE TYPIST documented in this encounter Medications at Time [...] including possible side effects. Prescriptions filled by [facility] pharmacy. Belongings checklist reviewed with patient and belongings sent. Care plan issues addressed and education record updated. R: Patient verbalizes understanding and teaches back discharge instructions. Patient discharged by: wheelchair with family. LLE TYPIST Nathaly Gonzalez PA-C - 03/21/2021 12:33 PM [...] Out: 1740 [Urine:1470; Chest Tube:270] UOP: 100/8h SODA ROOM OPERATOR: 270/24 Air Leak: No Current Weight: 163 lb (56716 g) Admission Weight: 161 PHYSICAL EXAM: Heart: [...] as long as pain is treated appropriately LLE TYPIST Kj Nagy MD - 03/21/2021 6:28 AM CST Anesthesiology Acute Pain Progress Note POD# 5 Epidural for pain SUBJECTIVE: Pain at rest 0/10, dynamic pain 1/10 Nausea no Pruritis no OBJECTIVE: Catheter site: old heme ASSESSMENT/PLAN: Continue current therapy yes Likely d/c today by CV surgery Kj Nagy MD 6:29 AM, 03/21/2021 LLE TYPIST JAYDEN BOLES - 03/21/2021 6:13 AM CST [...] Resp: 17 Temp: 36.9 ??C (98.5 ??F) LLE TYPIST Emani Joe RN - 03/20/2021 6:13 PM CST Shift [id number] Epidural still running at 10mL/h. Pain well managed. R CT y-site, provider changed dressig in AM. Total CT output 130mL. CXR in afternoon, is on oral lasix. Ambulating in halls with RN, up in chair often. On RA, continuous pulse ox, working on IS. Overall pleasant & can make needs known. LLE TYPIST Sha Coulter PA-C - 03/20/2021 11:38 AM [...] 3 completed shifts: In: 1919 [Oral:1919] Out: 5 [Urine:2225; Chest Tube:250] UOP: 600/8h SODA ROOM OPERATOR: 170 since 2300 on 03/19/21 Air Leak: No Current Weight: 163 lb (41985 g) Admission Weight: 161 PHYSICAL EXAM: Heart: [...] (4 walks per day) and IS use LLE TYPIST Dennis Owusu MD - 03/20/2021 8:40 AM CST Anesthesiology Acute Pain Progress Note 03/20/2021, 8:40 AM Fifi Kasper [id number] 1970 Iinfusion rate: 10 ml/hr SUBJECTIVE: Pain [...] Discontinue tomorrow: possible, depending on chest tubes. LLE TYPIST Emani Joe RN - 03/19/2021 6:45 PM CST Shift [id number] Epidural still running at 10mL/h. R CT y-sited & air leak present-- not new occurrence. Total output 200mL. Provided torodol x1 for shoulder/CT site pain w/ relief. C/o generalized itching, provided benadryl x1 with improvement. Is ambulating in halls with RN, up in chair often. On RA, continuous pulse ox. Overall pleasant & can make needs known. LLE TYPIST Abdoulaye Silvestre APRN, PHARMACY INTAKE COORDINATOR - 03/19/2021 10:07 AM CST DAILY PROGRESS [...] 3 completed shifts: In: 1320 [Oral:1320] Out: 2354 [Urine:2024; Chest Tube:330] UOP: 1050/8h SODA ROOM OPERATOR: 170/8h Air Leak: No Current Weight: 161 lb (85935 g) Admission Weight: 161 PHYSICAL EXAM: Heart: [...] (4 walks per day) and IS use LLE TYPIST Tommy Amador MD - 03/19/2021 7:14 AM CST Anesthesiology Acute Pain Progress Note 03/19/2021, 7:14 AM Fifi Kasper [id number] 1970 Surgical Procedure: R Thoracoscopy/RLL Resection Post-op [...] well Discontinue once chest tubes are removed LLE TYPIST Nathaly Gonzalez PA-C - 03/18/2021 9:45 AM [...] Out: 2720 [Urine:2300; Chest Tube:420] UOP: 350/8h SODA ROOM OPERATOR: 130/8h Air Leak: Yes Current Weight: 161 lb (53115 g) Admission Weight: 161 PHYSICAL EXAM: Heart: [...] (4 walks per day) and IS use LLE TYPIST Yandy Clarke MD - 03/18/2021 7:32 AM CST Anesthesiology Acute Pain Progress Note 03/18/2021 Fifi Kasper [id number] 1970 Patient is post-op day # 2 [...] or concerns. Yandy Clarke MD 7:32 AM LLE TYPIST Marilu Tesfaye RN - 03/18/2021 5:55 AM CST Shift Update: -Patient reports pain is controlled. Pain is worse w/ deep breathing and coughing. -Nubain x1 for itching. -Ambulated to the bathroom and in room without issue. -Had a BM. -Tolerating regular diet. -Keenan removed at 0540. Vitals: 03/18/21 0507 BP: 101/40 Pulse: 67 Resp: 18 Temp: LLE TYPIST Nathaly Gonzalez PA-C - 03/17/2021 10:23 AM [...] Out: 1371 [Urine:1050; Chest Tube:121] UOP: 800/8h SODA ROOM OPERATOR: 80/8h Air Leak: Yes Current Weight: 161 lb (34422 g) Admission Weight: 161 PHYSICAL EXAM: Heart: [...] removed. Gina Bravo MD 8:00 AM, 03/17/2021 LLE TYPIST Marilu Tesfaye RN - 03/17/2021 6:04 AM [...] Patient status: VSS, pain controlled. Will monitor. LLE TYPIST documented in this encounter Procedure Notes Gina Tierney MD - 03/16/2021 5:56 PM CST [facility] Brief Operative Progress Note Surgery Date: 03/16/2021 [...] 03/16/2021 1722 Complications / Findings: As expected LLE TYPIST Gina Tierney MD - 03/16/2021 12:00 AM CST NAME: FIFI KASPER [facility]: [id number] OPERATIVE REPORT DATE OF SURGERY: 03/16/2021 : 1970 SURGEON: GINA TIERNEY MD PREOPERATIVE DIAGNOSIS: Adenocarcinoma of the right lower lobe. POSTOPERATIVE DIAGNOSIS: Adenocarcinoma of the right lower lobe. PROCEDURE: Right lower lobectomy with a minimally invasive video-assisted thoracoscopic technique. REPAIRER HELPER: Nathaly Gonzalez PA-C. SPECIMEN: Station 9, 2, [...] chest was irrigated with saline and two 24-Macedonian chest tubes were placed and secured with #2 nylon sutures. The myofascial layers were closed with 2-0 Vicryl and deep dermal tissue was closed with 3-0 Vicryl. The skin was closed with 4-0 Monocryl. All sponge, needle, instrument counts were correct at the conclusion of the operation. I, Gina Tierney, was present and scrubbed for the entire procedure. GINA TIERNEY MD TAS/AQS /[id number] LLE TYPIST documented in this encounter Plan of Treatment Upcoming Encounters Date Type Specialty Care Team Description 01/02/2022 Appointment Radiology PN Kian Winters MBBS [address] [facility] [place] [address] (Opal osman) 01/04/2022 Appointment Oncology Kian Winters MBBS [address] [facility] [place] [address] (Opal osman) documented as of this encounter Procedures Procedure Name Priority Date/Time Associated Diagnosis Comme nts XR CHEST 1 VIEW Routine 03/20/2021 4:41 PM Result s for this BRAILLE TYPIST procedure are i n the results section. HEMOGLOBIN, BLOOD STAT 03/16/2021 6:37 PM Resu lts for this BRAILLE TYPIST procedure are i n the results section. POTASSIUM STAT 03/16/2021 6:37 PM Results f or this BRAILLE TYPIST procedure are i n the results section. SURGICAL PATHOLOGY Routine 03/16/2021 2:48 PM Malignant neopla sm Results for this BRAILLE TYPIST of lower lobe of procedure a re in right lung (HRC) the results section. THORACOSCOPY/THORAC 03/16/2021 1:19 PM Malignant neopl asm OTOMY/LUNG BRAILLE TYPIST of lower lobe of RESECTION right lung (HRC) Case Notes XRAY TAKEN AT END OF CASE BT SECOND DRAW STAT 03/16/2021 10:21 Results f or this AM BRAILLE TYPIST procedure are i n the results section. GLUCOSE, WHOLE BLOOD Routine 03/16/2021 10:17 Res ults for this POCT AM BRAILLE TYPIST procedure are i n the results section. ECG 12 LEAD INPATIENT Specified Time 03/16/2021 10:08 Malignant Results for this AM BRAILLE TYPIST neoplasm of procedure are i n lower lobe of the results right lung (HRC) section. US ANESTHESIA GUIDED STAT 03/16/2021 10:06 Res ults for this BLOCK AM BRAILLE TYPIST procedure are i n the results section. TYPE AND SCREEN Routine 03/16/2021 9:52 Malignant Results f or this AM BRAILLE TYPIST neoplasm of procedure are i n lower lobe of the results right lung (HRC) section. CBC AND DIFFERENTIAL STAT 03/16/2021 9:52 Malignant Resu lts for this PANEL AM BRAILLE TYPIST neoplasm of procedure are i n lower lobe of the results right lung (HRC) section. ANTIBODY SCREEN Routine 03/16/2021 9:52 Malignant Results f or this AM BRAILLE TYPIST neoplasm of procedure are i n lower lobe of the results right lung (HRC) section. BLOOD TYPE Routine 03/16/2021 9:52 Malignant Results for this AM BRAILLE TYPIST neoplasm of procedure are i n lower lobe of the results right lung (HRC) section. COMPLETE BLOOD STAT 03/16/2021 9:52 Malignant Results fo r this COUNT-W/DIFF AM BRAILLE TYPIST neoplasm of procedure are i n lower lobe of the results right lung (HRC) section. BASIC METABOLIC PANEL STAT 03/16/2021 9:52 Malignant Res ults for this AM BRAILLE TYPIST neoplasm of procedure are i n lower lobe of the results right lung (HRC) section. APTT (ACTIVATED STAT 03/16/2021 9:52 Malignant Results f or this PARTIAL AM BRAILLE TYPIST neoplasm of procedure are i n THROMBOPLASTIN TIME lower lobe of the res ults right lung (HRC) section. INR/PROTIME STAT 03/16/2021 9:52 Malignant Results for this AM BRAILLE TYPIST neoplasm of procedure are i n lower lobe of the results right lung (HRC) section. POCT URINE STAT 03/16/2021 9:40 Resu lts for this AM BRAILLE TYPIST procedure are i n the results section. documented in this encounter Results XR Chest 1 View (03/20/2021 4:41 PM BRAILLE TYPIST) Anatomical Region Laterality Modality Chest, Lung Digital Radiography Specimen (Source) Anatomical Collection Method Collection Time Re ceived Time Location / / Volume Laterality 03/20/2021 4:36 PM BRAILLE TYPIST Impressions 03/20/2021 4:47 PM BRAILLE TYPIST COMPARISON: ??03/16/2021 FINDINGS: Patient rotated. Prior ET [...] PA-C RAD GD POTASSIUM (03/16/2021 6:37 PM BRAILLE TYPIST) athologist Signature Potassium 3.7 3.5 - 5.1 03/16/2021 [facility] mmol/L 7:03 PM BRAILLE TYPIST LABORATORY Specimen Anatomical Collection Method / Collection Time Recei leoncio Time (Source) Location / Volume Laterality Blood Venipuncture / 03/16/2021 6:37 03/16/2021 6:50 Unknown PM BRAILLE TYPIST PM BRAILLE TYPIST Gina Tierney MD LAB_1 Performing Organization Address City/State/ZIP Code Phon e Number [facility] [address] [place] [address] HEMOGLOBIN, BLOOD (03/16/2021 6:37 PM BRAILLE TYPIST) athologist Signature Hemoglobin 12.3 12.0 - 15.5 03/16/2021 [facility] g/dL 6:53 PM BRAILLE TYPIST LABORATORY Specimen Anatomical Collection Method / Collection Time Recei leoncio Time (Source) Location / Volume Laterality Blood Venipuncture / 03/16/2021 6:37 03/16/2021 6:50 Unknown PM BRAILLE TYPIST PM BRAILLE TYPIST Gina Tierney MD LAB_1 Performing Organization Address City/State/ZIP Code Phon e Number [facility] [address] [place] [address] Surgical Path (03/16/2021 2:48 PM BRAILLE TYPIST) Component Value Ref Test Analysis Performed At [facility] Range Method Time Signature Case Report Surgical Pathology ?Case: [id number] ? 03/21/2021 [facility] Authorizing Provider: ??Gina Estrada MD ?Collected: ? 03/16/2021 1448 ? 3:24 PM LABO RATORY Ordering Location: ? [facility] Operating Room ?? Received: ?03/16/2021 1459 ? BRAILLE TYPIST Pathologist: ? Augie Escalera MD ? Specimens: [...] A. Lymph node, STATION 9, biopsy: 03/21/2021 [facility] Electronically Please see synoptic report for details 3 :24 PM LABORATORY signed by BRAILLE TYPIST Augie Escalera B. Lymph node, STATION 7, [...] report for details Synoptic Report LUNG 03/21/2021 [facility] LUNG: RESECTION - All Specimens 3:24 PM LABORATORY 8th Edition - Protocol posted: 06/16/2019 BRAILLE TYPIST SPECIMEN ?? Procedure: ?Wedge resection ?? Specimen [...] Lymph Nodes (pN): ?pN0 Clinical Malignant 03/21/2021 [facility] Information neoplasm of 3:24 PM LABORATORY lower lobe of BRAILLE TYPIST right lung (HRC) Microscopic Microscopic 03/21/2021 [facility] Description examination is 3:24 PM LABORATORY performed. BRAILLE TYPIST Special Stains The stain controls have been reviewed and stain appropriately. Elastic stain performed on block E6 does not demonstrate visceral pleural invasion. 03/21/2021 [facility] 3:24 PM LABORATORY BRAILLE TYPIST Gross A: 03/21/2021 [facility] Description The specimen is received beth sh for frozen section and labeled with the patient's name and Lymph node, STATION 9. The specimen consists of a 0.2 cm tissue fragment. The specimen is entirely submitted for frozen section in cassette A1. DJ 3:24 PM LABORATORY BRAILLE TYPIST B: The specimen is received beth sh for [...] The remaining parenchyma is purple-brown and spongy. Wet Sander sections are submitted as follows: E1: Frozen section remnant, en face parenchymal margin neare st mass E2: En face bronchial margin E3: En face vascular margins E4: 3 whole possible lymph nodes E5: Additional en face parenchymal margin near mass is E6-E10: Mass entirely submitted with area of pleural puckeri ng E11: Smaller nodules, whole E12: Wet Sander uninvolved parenchyma SH F: The specimen is [...] margin/previous staple line). DJ Intraoperative A: 03/21/2021 [facility] Consultation Frozen section diagnosis (FS A1): Station 9 lymph node -- negative. (Result called into OR 6 by JCC at 3:11 PM, 03/16/2021) 3:24 PM LABORATORY BRAILLE TYPIST B: Frozen section diagnosis (FS B1): Station [...] called into OR 6 by JCC at 5:41 PM, 03/16/2021) Embedded Images 03/21/2021 [facility] 3:24 PM LABORATORY BRAILLE TYPIST Specimen Anatomical Collection Method Collection Time Receive d Time (Source) Location / / Volume Laterality Tissue LYMPH NODE BIOPSY 03/16/2021 2:48 PM 02/18 2:59 SPECIMEN / Unknown BRAILLE TYPIST PM BRAILLE TYPIST Tissue specimen LYMPH NODE BIOPSY 03/16/2021 3:01 PM 0 03/16/2021 3:08 (specimen) SPECIMEN / Unknown BRAILLE TYPIST PM BRAILLE TYPIST Tissue specimen LYMPH NODE BIOPSY 03/16/2021 3:51 PM 0 03/16/2021 4:07 (specimen) SPECIMEN / Unknown BRAILLE TYPIST PM BRAILLE TYPIST Tissue specimen LYMPH NODE BIOPSY 03/16/2021 4:16 PM 0 03/16/2021 4:35 (specimen) SPECIMEN / Unknown BRAILLE TYPIST PM BRAILLE TYPIST Tissue specimen SPECIMEN FROM LUNG 03/16/2021 4:29 PM 03/16/2021 4:35 (specimen) / Unknown BRAILLE TYPIST PM BRAILLE TYPIST Tissue specimen SPECIMEN FROM LUNG 03/16/2021 5:22 PM 03/16/2021 5:27 (specimen) / Unknown BRAILLE TYPIST PM BRAILLE TYPIST Gina Tierney MD LAB PATHOLOGY Performing Organization Address City/[facility]/ZIP [facility] Phon e Number [facility] [address] [place] [address] Blood Type second draw (03/16/2021 10:21 AM BRAILLE TYPIST) P athologist Signature ABO O 03/16/2021 [facility] 12:05 PM BRAILLE TYPIST BLOOD BANK RH Negative 03/16/2021 [facility] 12:05 PM BRAILLE TYPIST BLOOD BANK Specimen Anatomical Collection Method / Collection Time Recei leoncio Time (Source) Location / Volume Laterality Blood Venipuncture / 03/16/2021 10:21 Unknown AM BRAILLE TYPIST 10:40 AM BRAILLE TYPIST Gina Tierney MD LAB_1 Performing Organization Address City/[facility] Phon e Number [facility] [address] [place] [address] Glucose, Whole Blood POCT (03/16/2021 10:17 AM BRAILLE TYPIST) Analysis Performed At Patho logist Time Signature Glucose, Whole 90 70 - 180 03/16/2021 [facility] Blood mg/dL 10:19 AM BRAILLE TYPIST LABORATORY Performing MT SURG 03/16/2021 [facility] Location 10:19 AM BRAILLE TYPIST LABORATORY Specimen Anatomical Collection Method Collection Time Receive d Time (Source) Location / / Volume Laterality Blood 03/16/2021 10:17 03/16/2021 AM BRAILLE TYPIST 10:19 AM BRAILLE TYPIST Gina Tierney MD LAB_1 Performing Organization Address City/State/ZIP Code Phon e Number [facility] [address] [place] [address] ECG 12 Lead Inpatient (03/16/2021 10:08 AM BRAILLE TYPIST) P athologist Signature Ventricular Rate 54 BPM [facility] Atrial Rate 54 BPM [facility] P-R Interval 154 ms [facility] QRS Duration 86 ms [facility] QT 448 ms [facility] QTc 424 ms [facility] P Catherine 55 degrees [facility] R Catherine 8 degrees [facility] T Catherine 59 degrees [facility] Specimen (Source) Anatomical Collection Method Collection Time Re ceived Time Location / / Volume Laterality 03/16/2021 10:08 AM BRAILLE TYPIST Narrative [facility] - 03/16/2021 10:23 AM BRAILLE TYPIST Sinus bradycardia Poor R wave progression Abnormal [...] MD PN ECG ORDERABLES Performing Organization Address City/[facility]/ZIP Code Phon e Number [facility] [address] [place] [address] US Anesthesia Guided Block (03/16/2021 10:06 AM BRAILLE TYPIST) Anatomical Region Laterality Modality Ultrasound Specimen (Source) Anatomical Location Collection Method / Collectio n Time Received Time / Laterality Volume Narrative 03/16/2021 10:06 AM BRAILLE TYPIST If an Anesthesia block was performed please see the Anesthesia encounter for documentation. ??This procedure was performed and interpreted by the performing provider. ?? Tommy Amador MD RAD US Antibody Screen (03/16/2021 9:52 AM BRAILLE TYPIST) [facility] Method Time Signature Antibody Screen Negative 03/16/2021 [facility] Interpretation 11:02 AM BRAILLE TYPIST BLOOD BANK Specimen Anatomical Collection Method / Collection Time Recei leoncio Time (Source) Location / Volume Laterality Blood Venipuncture / 03/16/2021 9:52 03/16/2021 Unknown AM BRAILLE TYPIST 10:02 AM BRAILLE TYPIST Gina Tierney MD LAB_1 Performing Organization Address City/[facility]/ZIP Code Phon e Number [facility] [address] [place] [address] Blood Type (03/16/2021 9:52 AM BRAILLE TYPIST) P athologist Signature ABO O 03/16/2021 [facility] 11:02 AM BRAILLE TYPIST BLOOD BANK RH Negative 03/16/2021 [facility] 11:02 AM BRAILLE TYPIST BLOOD BANK Specimen Anatomical Collection Method / Collection Time Recei leoncio Time (Source) Location / Volume Laterality Blood Venipuncture / 03/16/2021 9:52 03/16/2021 Unknown AM BRAILLE TYPIST 10:02 AM BRAILLE TYPIST Gina Tierney MD LAB_1 Performing Organization Address [facility] Code Phon e Number [facility] [address] [place] [address] (ABNORMAL) Complete Blood Count-W/Diff (03/16/2021 9:52 AM BRAILLE TYPIST) [facility] Method Time Signature WBC 4.8 3.5 - 10.5 03/16/2021 [facility] x10(9)/L 10:08 AM BRAILLE TYPIST LABORATORY RBC 3.83 (L) 3.90 - 03/16/2021 [facility] 5.03 10:08 AM BRAILLE TYPIST LABORATORY x10(12)/L Hemoglobin 12.1 12.0 - 03/16/2021 [facility] 15.5 g/dL 10:08 AM BRAILLE TYPIST LABORATORY HCT 37.2 34.9 - 03/16/2021 [facility] 44.5 % 10:08 AM BRAILLE TYPIST LABORATORY MCV 97.1 80.0 - 03/16/2021 [facility] 100.0 fL 10:08 AM BRAILLE TYPIST LABORATORY MCH 31.6 27.6 - 03/16/2021 [facility] 33.3 pg 10:08 AM BRAILLE TYPIST LABORATORY MCHC 32.5 31.5 - 03/16/2021 [facility] 35.2 g/dL 10:08 AM BRAILLE TYPIST LABORATORY RDW 13.5 11.9 - 03/16/2021 [facility] 15.5 % 10:08 AM BRAILLE TYPIST LABORATORY Platelets 179 150 - 450 03/16/2021 [facility] x10(9)/L 10:08 AM BRAILLE TYPIST LABORATORY Automated NRBC 0 <=0 /100 03/16/2021 [facility] WBC 10:08 AM BRAILLE TYPIST LABORATORY Neutrophil 3.1 1.7 - 7.0 03/16/2021 [facility] Absolute 10(9)/L 10:08 AM BRAILLE TYPIST LABORATORY Lymphocyte 1.3 1.0 - 4.8 03/16/2021 [facility] Absolute 10(9)/L 10:08 AM BRAILLE TYPIST LABORATORY Monocytes 0.3 0.2 - 0.9 03/16/2021 [facility] Absolute 10(9)/L 10:08 AM BRAILLE TYPIST LABORATORY Eosinophil 0.0 0.0 - 0.5 03/16/2021 [facility] Absolute 10(9)/L 10:08 AM BRAILLE TYPIST LABORATORY Basophil 0.0 0.0 - 0.3 03/16/2021 [facility] Absolute 10(9)/L 10:08 AM BRAILLE TYPIST LABORATORY Immature Gran % 0.2 0.0 - 0.5 03/16/2021 [facility] % 10:08 AM BRAILLE TYPIST LABORATORY Specimen Anatomical Collection Method / Collection Time Recei leoncio Time (Source) Location / Volume Laterality Blood Venipuncture / 03/16/2021 9:52 03/16/2021 Unknown AM BRAILLE TYPIST 10:02 AM BRAILLE TYPIST Gina Tierney MD LAB_1 Performing Organization Address City/[facility] Phon e Number [facility] [address] [place] [phone] APTT (ACTIVATED PARTIAL THROMBOPLASTIN TIME (03/16/2021 9:52 AM BRAILLE TYPIST) athologist Signature APTT 26.4 22.5 - 36.5 03/16/2021 [facility] Seconds 10:20 AM BRAILLE TYPIST LABORATORY Specimen Anatomical Collection Method / Collection Time Recei leoncio Time (Source) Location / Volume Laterality Blood Venipuncture / 03/16/2021 9:52 03/16/2021 Unknown AM BRAILLE TYPIST 10:02 AM BRAILLE TYPIST Gina Tierney MD LAB_1 Performing Organization Address City/[facility] Phon e Number [facility] [address] [place] [address] INR/PROTIME (03/16/2021 9:52 AM BRAILLE TYPIST) P athologist Signature Protime 13.0 11.8 - 14.6 03/16/2021 [facility] Seconds 10:20 AM BRAILLE TYPIST LABORATORY INR 1.0 0.9 - 1.1 03/16/2021 [facility] 10:20 AM BRAILLE TYPIST LABORATORY Specimen Anatomical Collection Method / Collection Time Recei leoncio Time (Source) Location / Volume Laterality Blood Venipuncture / 03/16/2021 9:52 03/16/2021 Unknown AM BRAILLE TYPIST 10:02 AM BRAILLE TYPIST Narrative [facility] - 03/16/2021 10:20 AM BRAILLE TYPIST Therapeutic range determined by protocol established by anticoagulation provider. Gina Tierney MD LAB_1 Performing Organization Address City/State/ZIP Code Phon e Number [facility] [address] [place] [address] (ABNORMAL) Basic Metabolic Panel (03/16/2021 9:52 AM BRAILLE TYPIST) Analysis Performed At Patho logist Time Signature Sodium 143 136 - 145 03/16/2021 [facility] mmol/L 10:29 AM BRAILLE TYPIST LABORATORY Potassium 3.9 3.5 - 5.1 03/16/2021 [facility] mmol/L 10:29 AM BRAILLE TYPIST LABORATORY Chloride 116 (H) 98 - 109 03/16/2021 [facility] mmol/L 10:29 AM BRAILLE TYPIST LABORATORY CO2 20 20 - 29 03/16/2021 [facility] mmol/L 10:29 AM BRAILLE TYPIST LABORATORY Anion Gap 7 7 - 16 03/16/2021 [facility] mmol/L 10:29 AM BRAILLE TYPIST LABORATORY Calcium 8.6 8.4 - 10.4 03/16/2021 [facility] mg/dL 10:29 AM BRAILLE TYPIST LABORATORY BUN 14 7 - 26 03/16/2021 [facility] mg/dL 10:29 AM BRAILLE TYPIST LABORATORY Creatinine 0.94 0.55 - 03/16/2021 [facility] 1.02 mg/dL 10:29 AM BRAILLE TYPIST LABORATORY GFR, Estimated >60 >60 03/16/2021 [facility] mL/min/1.7 10:29 AM BRAILLE TYPIST LABORATORY 3m2 Glucose 105 (H) 70 - 100 03/16/2021 [facility] mg/dL 10:29 AM BRAILLE TYPIST LABORATORY Comment: The given reference range is fo r the fasting state. Non-fasting reference range for glucose is 70 - 180 mg/dL. Specimen Anatomical Collection Method / Collection Time Recei leoncio Time (Source) Location / Volume Laterality Blood Venipuncture / 03/16/2021 9:52 03/16/2021 Unknown AM BRAILLE TYPIST 10:01 AM BRAILLE TYPIST Gina Tierney MD LAB_1 Performing Organization Address City/State/ZIP Code Phon e Number [facility] [address] [place] [address] POCT urine - Surgery Use Only (03/16/2021 9:40 AM BRAILLE TYPIST) [facility] gist Method Time Signature Urine Negative Negative POCT Test - POC Control Line Yes POCT Present, Clear Background - Internal control Cartridge Lot# [id number] POCT Specimen (Source) Anatomical Collection Method Collection Time Re ceived Time Location / / Volume Laterality Urine 03/16/2021 9:40 AM BRAILLE TYPIST Gina Tierney MD ET POINT OF CARE TEST ENTER/ EDIT ORDERABLES Performing Organization Address City/State/ZIP Code Phon e Number POCT documented in this encounter Visit Diagnoses Diagnosis Malignant neoplasm of lower lobe of righ t lung (HRC) - Primary Malignant neoplasm of lower lobe of righ t lung (HRC) Pain Generalized pain Malignant neoplasm of lower lobe of righ t lung (HRC) documented in this encounter Admitting Diagnoses Diagnosis Malignant neoplasm of lower lobe of righ t lung (HRC) documented in this encounter Administered Medications Inactive Administered Medications - up to 3 most recent administrations Medication Order MAR Action Action Date Dose Rate Site acetaminophen (TYLENOL) tablet Given 03/21/2021 1:28 PM BRAILLE TYPIST 1,00 0 mg 1,000 mg 1,000 mg, Oral, Q6H (NON-STND), First dose on Fri03/17/21 at 0200, Until Discontinued Given 03/21/2021 7:48 AM BRAILLE TYPIST 1,000 mg Given 03/20/2021 8:16 PM BRAILLE TYPIST 1,000 mg dextrose (D50) injection 25 g [...] capsule 25 mg Given 03/19/2021 1:36 PM BRAILLE TYPIST 25 mg 25 mg, Oral, Q4H PRN, Itching, if able to take oral medications, Starting on Fri03/16/21 at 2009, Until Fri03/21/21 at 1620, Give if nalbuphine (NUBAIN) not effective and if able to take oral medications., Post-op Given 03/17/2021 12:23 PM BRAILLE TYPIST 25 mg diphenhydrAMINE (BENADRYL) injection 25 mg 25 mg, Intravenous, Q4H PRN, Itching, if unable to take oral medications, Starting on Fri03/16/21 at 2009, Until Fri03/21/21 at 1620, Give if nalbuphine (NUBAIN) not effective and if unable to take oral medications., Pos t-op FLUoxetine (PROZAC) capsule 10 mg Given 03/21/2021 7:48 AM BRAILLE TYPIST 10 mg 10 mg, Oral, DAILY, First dose on 03/17/21 at 0800, Until Discontinued Given 03/20/2021 8:15 AM BRAILLE TYPIST 10 mg Given 03/19/2021 8:58 AM BRAILLE TYPIST 10 mg furosemide (LASIX) tablet 20 mg Given 03/21/2021 7:48 AM BRAILLE TYPIST 20 mg 20 mg, Oral, DIURETIC - 0800/1700, First dose on 03/18/21 at 1000, Until Discontinued Given 03/20/2021 5:34 PM BRAILLE TYPIST 20 mg Given 03/20/2021 8:15 AM BRAILLE TYPIST 20 mg glucagon rDNA (diagnostic) (GLUCAGEN) in [...] (MUCINEX) extended release Given 03/21/2021 7:48 AM BRAILLE TYPIST 1,200 mg tablet 1,200 mg 1,200 mg, Oral, BID, First dose on Fri03/16/21 at 2200, Until Discontinued, Tablet should be swallowed whole. Take with a full glass of water. Given 03/20/2021 8:05 PM BRAILLE TYPIST 1,200 mg Given 03/20/2021 8:14 AM BRAILLE TYPIST 1,200 mg hydrocortisone 2.5 % cream 1 Given 03/20/2021 10:59 PM BRAILLE TYPIST 1 Alexandrea lication Back Application 1 Application, Topical, BID PRN, Rash, Itching, Starting on Fri03/16/21 at 2008, Apply topically to skin Hazardous waste disposal required. hydrOXYzine pamoate (VISTARIL) capsule 2 5 mg Given 03/21/2021 6:08 AM BRAILLE TYPIST 25 mg 25 mg, Oral, Q6H PRN, Itching, Starting on Fri03/16/21 at 2009, Until Fri03/21/21 at 1620 Given 03/20/2021 10:57 PM BRAILLE TYPIST 25 mg Given 03/19/2021 8:17 PM BRAILLE TYPIST 25 mg ibuprofen (MOTRIN) tablet 400 mg Given 03/21/2021 11:35 AM BRAILLE TYPIST 400 mg 400 mg, Oral, QID, First dose on Fri03/21/21 at 1200, Until Discontinued, Give with food or milk. metoprolol succinate (TOPROL XL) extended Given 03/20/2021 8:05 PM BRAILLE TYPIST 100 mg release tablet 100 mg 100 mg, Oral, DAILY, First dose on Fri03/17/21 at 2000, Until Discontinued, Tablet may be split in half, but not crushed. Given 03/19/2021 8:07 PM BRAILLE TYPIST 100 mg Given 03/18/2021 8:16 PM BRAILLE TYPIST 100 mg metoprolol succinate (TOPROL XL) extended Given 03/18/2021 8:41 AM BRAILLE TYPIST 50 mg release tablet 50 mg 50 mg, Oral, DAILY, First dose on Fri03/17/21 at 0800, Until Discontinued, Tablet may be split in half, but not crushed. Given 03/17/2021 8:04 AM BRAILLE TYPIST 50 mg NaCl 0.9%-KCl 20 mEq/liter Rate/Dose Change 03/19/2021 11:29 AM 10 mL/hr infusion BRAILLE TYPIST Intravenous, at 10 mL/hr, CONTINUOUS, Starting on Fri03/16/21 at 2030, Post-op Rate/Dose Verify 03/19/2021 10:48 AM BRAILLE TYPIST 75 mL/hr New Bag Started 03/19/2021 5:15 AM BRAILLE TYPIST 75 mL/hr nalbuphine (NUBAIN) 1-2 mg in sodium chloride Given 03/19/19 3:31 AM BRAILLE TYPIST 2 mg 0.9 % 1-2 mL syringe 1-2 mg, Intravenous, Q4H PRN, Itching, Starting on Fri03/16/21 at 2010, Notify pharmacy to compound and send dose when needed., Post-op Given 03/18/2021 8:14 PM BRAILLE TYPIST 2 mg Given 03/18/2021 2:17 PM BRAILLE TYPIST 2 mg naloxone (NARCAN) injection 0.08 mg [...] oxidized cellulose (SURGICEL Given 03/16/2021 3:04 PM BRAILLE TYPIST 2 Each Wound Site HEMOSTAT) hemostat pad ONCE PRN, Starting on Fri03/16/21 at 1504, Intra-op oxyCODONE (ROXICODONE) immediate release Given 03/21/2021 11:35 AM BRAILLE TYPIST 5 mg tablet 5 mg 5 mg, Oral, Q6H PRN, Pain, Severe Pain (pain score 8-10), Starting on Fri03/21/21 at 1105, Until Fri03/21/21 at 1620 sodium chloride 0.9% injection 10-60 mL Given 03/20/2021 8:17 PM BRAILLE TYPIST 20 mL 10-60 mL, Intravenous, BID, First [...] Recently Administered Medications Times are shown in BRAILLE TYPIST. Scheduled Medication Order 03/19/2021 03/20/2021 03/21/2021 acetaminophen [...] 0748 (Given - Provider: Montserrat Chavez, COLETTE) 10 mg, Oral, DAILY, First dose on [...] Manage Orders - Provider: Md Mcfadden Template Marims) 50 mg, Oral, DAILY, First dose on Sat at 0800, Until Discontinued, Tablet may be split in half, but not crushed. sodium chloride 0.9% injection 10-60 mL 2016 (Given - Provider: JAYDEN BOLES) 07 (Not Given - Provider: Montserrat zaman RN - Reason: Other (Enter Reason in Comment Area) - Comment: IVF infusing) 10-60 mL, Intravenous, BID, First dose o n 03/20/21 at 204, Until Discontinued, For an INT flush, flush [...] JAYDEN BOLES) 0217 (Rate/Dose Verify - Provider: [facility] JAYDEN HOLLEY)0345 (New Syringe/Cassette - Provider: JAYDEN BOLES)1319 (Started - Provider: Emani Joe RN)2016 (Rate/Dose Verify - Provider: JAYDEN BOLES) 0320 (Rate/Dose Verify - Provider: JAYDEN BOLES)0602 (Rate/Dose Verify - Provider: JAYDEN BOLES) Epidural, CONTINUOUS, Starting on Fri at 1530, Run epidural solution at 10 ml/hour per infusion pump 2247 (Started - Provider: [facility] JAYDEN HOLLEY) NaCl 0.9%-KCl 20 mEq/liter infusion [...] 2016 (Giv en - Provider: Syl Sibley) 1799 (Given - Provider: JAYDEN BOLES) 0608 ( [...] additional info rmation about flushing processes, refere [facility] the Vascular Access Device Users Guide. Linked [...] on Fri03/16/21 at 2010, Until Fri03/21/21 at 1620
Give if nalbuphine [...]
Post-op documented in this encounter Care Teams Coding Spec Relationship Specialty Start Date End Date David Choudhury MD PCP - General [facility] 03/16/21 [address] [place] [address] documented as of this encounter
--- OUTSIDE RECORDS SUMMARY | 2021-12-03 08:33 | XMS_ITS | Encounter Summary ---
:1970 Author Organization [facility] Address [address] [address] Care Team Providers Name Role Phone Theresa Hardy MD Primary Care Provider Reason for Visit Procedure/Equipment (Routine) - Incomplete Specialty Diagnoses / Procedures Referred By Contact Refer red To Contact Diagnoses Lung mass Greyson Ovalle MD Procedures NM PET/CT Skull Base To Mid Thigh [address] [place], [place] [address] Referral ID Status Reason Start Date Expiration Date Visits V isits Requested Authorized [id number] Incomplete 02/26/2021 05/28/2022 6 6 Encounter Details Date Type Department Care Team Description 02/28/2021 Hospital Encounter [facility] Nuclear Greyson Ovalle, Medicine 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 documented in this encounter Results NM PET/CT Skull Base To Mid Thigh (02/28/2021 3:54 PM FINAL INSPECTOR TRUCK TRAILER) Anatomical Region Laterality Modality Nuclear Medicine Specimen (Source) Anatomical Collection Method Collection Time Re ceived Time Location / / Volume Laterality 02/28/2021 2:13 PM FINAL INSPECTOR TRUCK TRAILER Impressions 02/28/2021 4:25 PM FINAL INSPECTOR TRUCK TRAILER TECHNIQUE: Images were obtained from the skull [...] on filedocumented in this encounter Care Teams International Travel Consultant Relationship Specialty Start Date End Date Theresa Hardy MD PCP - General 05/22/10 03/15/[address] [place] [id number] documented as of this encounter
--- OUTSIDE RECORDS SUMMARY | 2021-12-03 08:33 | XMS_ITS | Encounter Summary ---
:1970 Author Organization [facility] Address [address] [place] [address] Care Team Providers Name Role Phone Theresa Hardy MD Primary Care Provider Reason for Referral Procedure/Equipment (Routine) - Incomplete Specialty Diagnoses / Procedures Referred By Contact Refer red To Contact Diagnoses Lung mass Xochitl Fuentes MD Procedures CT Bx Lung Horizontal Boring Mill Operator [address] [facility] [address] [place], [place] [address] Referral ID Status Reason Start Date Expiration Date Visits V isits Requested Authorized [id number] Incomplete 02/15/2021 05/17/2022 1 1 MATIC SPINNING 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 SETTER Reason for Visit Reason Comments CONSULT Encounter Details Date Type Department Care Team Description 02/15/2021 Office Visit Specialty Center [address] Greyson Ovalle, Lung mass (Primary Pulmonary Medicine MD Dx) [address] [facility] [address] [place], [place] [address] [place], [place] [phone] (Wo rk) Social History Tobacco Use Types [...] at Date Recorded Female 02/21/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 documented as of this encounter Last Filed Vital Signs Vital Sign Reading Time Taken Comments Blood Pressure - - Pulse 71 02/15/2021 9:02 AM AUTOMATIC SPINNING LATHE SETTER Temperature - - Respiratory Rate - - Oxygen Saturation 98% 02/15/2021 9:02 AM AUTOMATIC SPINNING LATHE SETTER Inhaled Oxygen Concentration - - Weight 75 kg (165 lb 6.4 oz) 02/15/2021 9:02 AM AUTOMATIC SPINNING LATHE SETTER Height 152.4 cm (5') 02/15/2021 9:02 AM AUTOMATIC SPINNING LATHE SETTER Body Mass Index 32.3 02/15/2021 9:02 AM AUTOMATIC SPINNING LATHE SETTER documented in this encounter Patient Instructions Patient [...] call with any new questions or concerns MATIC SPINNING LATHE SETTER documented in this encounter Progress Notes Kerri Lares RN - 02/15/2021 9:00 AM AUTOMATIC SPINNING LATHE SETTER Addended by: KERRI LARES on: 02/15/2021 10:43 AM Modules accepted: Orders, SmartSet MATIC SPINNING LATHE SETTER Greyson Ovalle MD - 02/15/2021 9:00 AM [...] is a never-smoker. [place] is originally from [place]; [place] about [place]. 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 No known family history of lung [...] (58.1 kg) SpO2 99% BMI 25.64 kg/m?? @[id number]@ General appearance: alert, cooperative, no distress, appears [...] Ovalle MD Pulmonary, Critical Care TT 60 MATIC SPINNING LATHE SETTER documented in this encounter Plan of Treatment Upcoming Encounters Date Type Specialty Care Team Description 01/02/2022 Appointment Radiology PN Kian Winters MBBS [address] [facility] [phone] (Wo rk) 01/04/2022 Appointment Oncology Kian Winters MBBS [address] [facility], [place] [address] [phone] (Wo rk) documented as of this encounter Results CT Bx Lung Horizontal Boring Mill Operator (02/22/2021 1:14 PM AUTOMATIC SPINNING LATHE SETTER) Anatomical Region Laterality Modality Chest, Lung, Guided Computed Tomography Specimen (Source) Anatomical Location Collection Method / Collectio n Time Received Time / Laterality Volume Narrative 02/22/2021 1:18 PM AUTOMATIC SPINNING LATHE SETTER These images were obtained during a surg ical procedure. Xochitl Fuentes MD RAD CT documented in this encounter Visit Diagnoses Diagnosis Lung mass - Primary Swelling, mass, or lump in chest documented in this encounter Care Teams Manufacturing Support Engineer Relationship Specialty Start Date End Date Theresa Hardy MD PCP - General 05/22/10 03/15/[address] [place] [id number] documented as of this encounter
--- OUTSIDE RECORDS SUMMARY | 2021-12-03 08:33 | XMS_ITS | Encounter Summary ---
:1970 Author Organization [facility] Address [address] [address] Care Team Providers Name Role Phone Theresa Hardy MD Primary Care Provider Reason for Referral Procedure/Equipment (Routine) - Incomplete Specialty Diagnoses / Procedures Referred By Contact Refer red To Contact Procedures Xochitl Fuentes MD XR Chest 1 View [address] [facility] [address] [place], [place] [address] Referral ID Status Reason Start Date Expiration Date Visits V isits Requested Authorized [id number] Incomplete 02/22/2021 05/24/2022 1 1 AL SPRING W[place]ER Procedure/Equipment (Routine) - Incomplete Specialty Diagnoses / Procedures Referred By Contact Refer red To Contact Diagnoses Lung mass Xochitl Fuentes MD Procedures CT Bx Lung Work Order Clerk [address] [facility] [address] [place], [place] [address] Referral ID Status Reason Start Date Expiration Date Visits V isits Requested Authorized [id number] Incomplete 02/15/2021 05/17/2022 1 1 AL SPRING WINDER Encounter Details Date Type Department Care Team Description 02/22/2021 Hospital Encounter Heart & Vascular Xochitl Fuentes, Lung mass Center Procedural Ar katerine CASTRO [address] [place], [place] [address] [address] [place], [place] [phone] (Wo rk) Social History Tobacco Use Types [...] at Date Recorded Female 02/21/2021 8:36 PM SPIRAL SPRING WINDER documented as of this encounter Last Filed Vital Signs Vital Sign Reading Time Taken Comments Blood Pressure 92/53 02/22/2021 2:15 PM SPIRAL SPRING WINDER Pulse 71 02/22/2021 2:15 PM SPIRAL SPRING WINDER Temperature 36.9 ??C (98.5 ??F) 02/22/2021 11:16 AM SPIRAL SPRING WINDER Respiratory Rate 17 02/22/2021 1:45 PM SPIRAL SPRING WINDER Oxygen Saturation 97% 02/22/2021 2:15 PM SPIRAL SPRING WINDER Inhaled Oxygen Concentration - - Weight - [...] post biopsy imaging. Patient is returned to [facility] in good condition for recovery. Follow up will be pulmonary clinic to review results. Moderate conscious sedation was administered by the nurse and supervised by the physician performingthe procedure. The following parameters were monitored: oxygen saturation, heart rate, blood pressure, and response to care. Total physician intraservice time was 48 minutes. Xochitl Fuentes MD Pulmonary Medicine AL SPRING WINDER documented in this encounter Miscellaneous Notes Sedation Documentation - Josy Lugo RN - 02/22/2021 1:20 PM CST Procedure done. Dressing applied to site; dressing clean, dry & intact. Patient denies pain. Patient tolerated moderate sedation; vitals stable. Patient transported back to [facility]; report to bedside RN. Procedure was performed in the CT department with Moderate IV sedation and continuous physician and nurse monitoring. Total sedation time: 49 minutes Total Versed dose: 1 mg Total Fentanyl dose: 100 mcg AL SPRING WINDER Sedation Documentation - Josy Lugo RN - 02/22/2021 12:19 PM SPIRAL SPRING WINDER Timeout Timeout/pause for cause completed on 02/22/21 at 1220 Sedation Note ??? Monitors in place. ??? Patient reassessed and approved for sedation per Dr Fuentes. AL SPRING WINDER documented in this encounter Plan of Treatment Upcoming Encounters Date Type Specialty Care Team Description 01/02/2022 Appointment Radiology PN Kian Winters MBBS [address] [facility], N [phone] (Wo rk) 01/04/2022 Appointment Oncology Kian Winters MBBS [address] [facility], [place] [address] (Wo rk) documented as of this encounter Procedures Procedure Name Priority Date/Time Associated Comments Diagnosis XR CHEST 1 VIEW Routine 02/22/2021 2:35 PM Result s for this SPIRAL SPRING WINDER procedure are i n the results section. AFB CULTURE Routine 02/22/2021 1:18 PM Results f or this [employer] procedure are i n the results section. AEROBIC & ANAEROBIC Routine 02/22/2021 1:18 PM Re sults for this CULTURE PANEL SPIRAL SPRING W[employer]ER procedure are in the results section. FUNGUS CULTURE Routine 02/22/2021 1:18 PM Results for this SPIR[employer]ING W[employer]ER procedure are i n the results section. ANAEROBIC CULTURE Routine 02/22/2021 1:18 PM Resu lts for this SPIRAL SPRING W[employer]ER procedure are i n the results section. AFB CULTURE Routine 02/22/2021 1:18 PM Results f or this SP[employer] procedure are i n the results section. AEROBIC CULTURE Routine 02/22/2021 1:18 PM Result s for this SPIRAL SPRING W[employer]ER procedure are i n the results section. SURGICAL PATHOLOGY Routine 02/22/2021 1:18 PM Res ults for this SPIRAL SPRING WINDER procedure are i n the results section. CT BX LUNG Routine 02/22/2021 1:14 PM Lung mass Results f or this ENTRY LEVEL RECRUITER SPIRAL [employer] procedure are in the results section. CBC AND DIFFERENTIAL STAT 02/22/2021 11:19 Res ults for this PANEL AM SPIRAL SPRING [employer]ER procedure are i n the results section. COMPLETE BLOOD STAT 02/22/2021 11:19 Results f or this COUNT-W/DIFF AM SPIRAL SPRING W[employer]ER procedure are i n the results section. INR/PROTIME STAT 02/22/2021 11:19 Results for this AM SPIRAL [employer]ING W[employer]ER procedure are i n the results section. documented in this encounter Results XR Chest 1 View (02/22/2021 2:35 PM SPIRAL SPRING WINDER) Anatomical Region Laterality Modality Chest, Lung Digital Radiography Specimen (Source) Anatomical Collection Method Collection Time Re ceived Time Location / / Volume Laterality 02/22/2021 2:35 PM SPIRAL [employer]ING W[employer]ER Impressions 02/22/2021 2:55 PM SPIRAL SPRING W[employer]ER COMPARISON: ??CT 02/22/2021, 02/02/2021. FINDINGS: ??One view [...] RAD GD Anaerobic Culture (02/22/2021 1:18 PM SPIRAL SPRING WINDER) [facility] Method Time Signature Anaerobic No Anaerobes 03/01/2021 [facility] Culture Isolated 11:05 AM [facility] Specimen Anatomical Collection Method Collection Time Receive d Time (Source) Location / / Volume Laterality Tissue SPECIMEN FROM LUNG Non-blood 02/22/2021 1:18 PM 07/2021 1:32 / Unknown Collection / SPIRAL [employer]ING W[employer]ER PM SP[facility] [facility] Unknown Xochitl Fuentes MD LAB_1 Performing Organization Address City/State/ZIP Code Phon e Number [address] [address] Aerobic Culture (02/22/2021 1:18 PM SPIRAL SPRING WINDER) [facility] Method Time Signature Aerobic No Growth 02/25/2021 [facility] Culture After 3 Days 3:26 PM [facility] Gram Smear No PMN's 02/25/2021 [facility] Present 3:26 PM [facility] Gram Smear No Organisms 02/25/2021 [facility] Seen 3:26 PM [facility] Specimen Anatomical Collection Method Collection Time Receive d Time (Source) Location / / Volume Laterality Tissue SPECIMEN FROM LUNG Non-blood 02/22/2021 1:18 PM 07/2021 1:32 / Unknown Collection / [employer] [place] PM [facility] [place] [facility] Unknown Xochitl Fuentes MD LAB_1 Performing Organization Address [facility] e Number [address] [address] AFB Culture (02/22/2021 1:18 PM SPIRAL SPRING WINDER) [facility] Signature AFB Culture No Mycobacteria 04/21/2021 [facility] Isolated 9:11 AM [facility] AFB Smear No Acid Fast 04/21/2021 [facility] Bacilli Found 9:11 AM [facility] Specimen Anatomical Collection Method Collection Time Receive d Time (Source) Location / / Volume Laterality Tissue SPECIMEN FROM LUNG Non-blood 02/22/2021 1:18 PM 07/2021 1:32 / Unknown Collection / [employer] [employer] PM [facility] Unknown Xochitl Fuentes MD LAB_1 Performing Organization Address [facility] e Number [address] [address] Surgical Path (02/22/2021 1:18 PM SPIRAL SPRING WINDER) Component Value Ref Test Analysis Performed At [facility] Method Time Signature Case Report Surgical Pathology ?Case: [id number] ? 02/23/2021 [facility] Authorizing Provider: ??Xochitl Rose MD ?Collected: ? 02/22/2021 1318 ? 9:48 AM LABORAT ORY [facility]ing Location: ? [facility] ?Received: ?02/22/2021 1333 ? SPIRAL SPRING WINDER ? Procedural Area ? Pathologist: ? Jack Leung MD ? Specimen: ?Lung, right ? FINAL A. Lung, right, needle core biopsy: 08/2021 [facility] Electronically DIAGNOSIS Low-grade adenocarcinoma 9:48 AM LABOR ATORY signed by BERTRAM Leung MD on Comment: 02/23/2021 a t 9:48 JUANCARLOS Giron has reviewe d this case and concurs with the diagnosis. An Epic message is sent to Dr. Fuentes regarding these results 02/23/21. AM Clinical Right lung mass; lifelong nonsmoker 08/2021 [facility] Information 9:48 AM LABORATORY SPIR[employer] [employer]ER Microscopic Microscopic 02/23/2021 [facility] Description examination is 9:48 AM LABORATORY performed. SPIRAL [employer]ING [employer] Gross A: 02/23/2021 [facility] Description The specimen is received in formalin and labeled with the patient's name and Lung, right. The specimen consists of multiple robison-white cylindrical, wispy, soft tissue fragments, ranging from minute-0.6 9:48 AM LABORATORY cm in length. The specimen is filtered, inked blue, and entirely submitted in one cassette. Minute portions may not survive processing. DV [facility] [place] [facility] Embedded 02/23/2021 [facility] Images 9:48 AM LABORATORY SPIR[employer] Specimen Anatomical Collection Method Collection Time Receive d Time (Source) Location / / Volume Laterality Tissue SPECIMEN FROM LUNG Non-blood 02/22/2021 1:18 PM 07/2021 1:33 / Unknown Collection / SP[employer]ING W[employer]ER PM [facility] Unknown Xochitl Fuentes MD LAB PATHOLOGY Performing Organization Address City/State/ZIP Code Phon e Number [facility] [address] [place] [address] CFUNG - Fungal Culture and Stain (02/22/2021 1:18 PM SPIRAL SPRING WINDER) [facility] gist Method Time Signature Fungus Culture No Fungus 03/26/2021 [facility] Isolated 7:44 AM [facility] Fungus Smear No Yeast or 03/26/2021 [facility] Fungal 7:44 AM [facility] Elements Found Specimen Anatomical Collection Method Collection Time Receive d Time (Source) Location / / Volume Laterality Tissue SPECIMEN FROM LUNG Non-blood 02/22/2021 1:18 PM 07/2021 1:32 / Unknown Collection / [employer] [place] [employer] PM [facility] Unknown Xochitl Fuentes MD LAB_1 Performing Organization Address City/[facility]/ZIP Code Phon e Number [address] [address] [address] Bx Lung Work Order Clerk (02/22/2021 1:14 PM SPIRAL SPRING WINDER) Anatomical Region Laterality Modality Chest, Lung, Guided Computed Tomography Specimen (Source) Anatomical Location Collection Method / Collectio n Time Received Time / Laterality Volume Narrative 02/22/2021 1:18 PM SP[employer] These images were obtained during a surg ical procedure. Xochitl Fuentes MD RAD CT Complete Blood Count-W/Diff (02/22/2021 11:19 AM SPIR[facility] [place] [facility]) athologist Signature WBC 4.5 3.5 - 10.5 02/22/2021 [facility] x10(9)/L 11:42 AM [facility] LAB[facility] RBC 3.91 3.90 - 02/22/2021 [facility] 5.03 11:42 AM [facility] x10(12)/L Hemoglobin 12.0 12.0 - 02/22/2021 [facility] 15.5 g/dL 11:42 AM [facility] HCT 37.7 34.9 - 02/22/2021 [facility] 44.5 % 11:42 AM [facility] MCV 96.4 80.0 - 02/22/2021 [facility] 100.0 fL 11:42 AM [facility] MCH 30.7 27.6 - 02/22/2021 [facility] 33.3 pg 11:42 AM [facility] MCHC 31.8 31.5 - 02/22/2021 [facility] 35.2 g/dL 11:42 AM [facility] RDW 13.7 11.9 - 02/22/2021 [facility] 15.5 % 11:42 AM [facility] Platelets 186 150 - 450 02/22/2021 [facility] x10(9)/L 11:42 AM [facility] Automated NRBC 0 <=0 /100 02/22/2021 [facility] WBC 11:42 AM [facility] Neutrophil 2.5 1.7 - 7.0 02/22/2021 [facility] Absolute 10(9)/L 11:42 AM [facility] Lymphocyte 1.6 1.0 - 4.8 02/22/2021 [facility] Absolute 10(9)/L 11:42 AM [facility] Monocytes 0.4 0.2 - 0.9 02/22/2021 [facility] Absolute 10(9)/L 11:42 AM [facility] Eosinophil 0.1 0.0 - 0.5 02/22/2021 [facility] Absolute 10(9)/L 11:42 AM [facility] Basophil 0.0 0.0 - 0.3 02/22/2021 [facility] Absolute 10(9)/L 11:42 AM [facility] Immature Gran % 0.2 0.0 - 0.5 02/22/2021 [facility] % 11:42 AM [facility] Specimen Anatomical Collection Method / Collection Time Recei leoncio Time (Source) Location / Volume Laterality Blood Venipuncture / 02/22/2021 11:19 2 Unknown AM [facility] 11:33 AM [facility] [facility] Xochitl Fuentes MD LAB_1 Performing Organization Address City/State/ZIP Code Phon e Number [facility] [address] [place] [address] INR/PROTIME (02/22/2021 11:19 AM SPIR[place] [facility]) P athologist Signature Protime 13.0 11.8 - 14.6 02/22/2021 [facility] Seconds 11:54 AM [facility] INR 1.0 0.9 - 1.1 02/22/2021 [facility] 11:54 AM [facility] Specimen Anatomical Collection Method / Collection Time Recei leoncio Time (Source) Location / Volume Laterality Blood Venipuncture / 02/22/2021 11:19 2 Unknown AM [facility] 11:33 AM [facility] Narrative [facility] - 02/22/2021 11:54 AM SP[facility] [employer] Therapeutic range determined by protocol established by anticoagulation provider. Xochitl Fuentes MD LAB_1 Performing Organization Address City/State/ZIP Code Phon e Number [facility] [address] [place] [address] documented in this encounter Visit Diagnoses Diagnosis [...] capsule 25 mg Given 02/22/2021 1:53 PM SP[facility] [employer] [facility] 25 mg 25 mg, Oral, Q6H PRN, Itching, Starting on Laine 02/22/21 at 1351, Until Laine 02/22/21 at 1857 fentaNYL (SUBLIMAZE) injection Given 02/22/2021 12:57 PM [facility] 50 mcg Intravenous, PRN, Starting on Laine 02/22/21 at 1222, Until Laine 02/22/21 at 1257 Given 02/22/2021 12:22 PM SP[facility] [facility] 50 mcg HYDROmorphone (DILAUDID) tablet 2 mg 2 mg, Oral, Q4H PRN, Other, Severe Pain (pain score 8-10), Starting on Laine 02/22/21 at 1317, Until Laine 02/22/21 at 1857 midazolam (VERSED) injection Given 02/22/2021 12:21 PM SP[facility] [facility] 1 mg Intravenous, PRN, Starting on Laine 02/22/21 at 1221, Until Laine 02/22/21 at 1221 ondansetron (ZOFRAN) injection 4 mg 4 mg, Intravenous, Q6H PRN, Nausea, Vomi ting, Starting on Laine 02/22/21 at 1317, Until Laine 02/22/21 at 1857 documented in this encounter Active and Recently Administered Medications Times are shown in [facility]. PRN Medication Order 02/20/2021 02/21/2021 02/22/2021 acetaminophen [...] override documented in this encounter Care Teams Gas Distribution Supervisor Relationship Specialty Start Date End Date Theresa Hardy MD PCP - General 05/22/10 03/15/21 [address] [place] [address] [address] documented as of this encounter
--- OUTSIDE RECORDS SUMMARY | 2021-12-03 08:33 | XMS_ITS | Encounter Summary ---
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 You may call [phone] to schedule your appoi ntment. We suggest you call your health insurance company about your coverage an d benefits for this appointment. ETIC TURF WORKER Reason for Visit Reason Comments CONSULT Consult/Transfer Care (Routine) - New Request Specialty Diagnoses / Procedures Referred By Contact Refer red To Contact Diagnoses Lung mass Darien Helms MD [address] [place], [place] [address] Referral ID Status Reason Start Date Expiration Date Visits V isits Requested Authorized [id number] New Request 02/26/2021 05/28/2022 1 1 Encounter Details Date Type Department Care Team Description 03/01/2021 [facility] Kian Winters D, Malignant neoplasm Encounter [facility] of lower lobe of [facility] [address] [place] right lung (HRC) [address] (Primary Dx) [place] [address] [phone] Social History Tobacco Use Types Packs/Day Years [...] at Date Recorded Female 02/21/2021 8:36 PM ATHLETIC TURF WORKER documented as of this encounter Last Filed Vital Signs Vital Sign Reading Time Taken Comments Blood Pressure 116/74 03/01/2021 12:59 PM ATHLETIC TURF WORKER Pulse 56 03/01/2021 12:59 PM ATHLETIC TURF WORKER Temperature - - Respiratory Rate - - Oxygen Saturation - - Inhaled Oxygen Concentration - - Weight 73.5 kg (162 lb) 03/01/2021 12:59 PM ATHLETIC TURF WORKER Height 152 cm (4' 11.84) 03/01/2021 12:59 PM ATHLETIC TURF WORKER Body Mass Index 31.8 03/01/2021 12:59 PM ATHLETIC TURF WORKER documented in this encounter Medications at Time [...] as of this encounter Progress Notes Kian Witners MBBS - 03/01/2021 1:00 PM CST Consult note dictated ETIC TURF WORKER Kian Winters MBBS - 03/01/2021 12:00 AM CST NAME: FIFI JOSÉ CSN: [id number] HEMATOLOGY ONCOLOGY CONSULTATION NOTE DATE OF VISIT: [...] episode previously. She was evaluated at the [facility] Emergency Room.She was noted to [...] and has never smoked. Lives with in [place]. They have 3 children. 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 For early stage lung cancers, in asymptomatic patients, we typically do not perform MRI scans of the brain, this would be in accordance with the NCCN guidelines, and I do not believe she needs to have brain imaging performed as she has no CHEMICAL TECHNICIAN symptoms. In terms of management, I did [...] at length, extensive counseling was provided. JUANCARLOS DOWLING PDW/AQS /[id number] cc: DARIEN HELMS MD [address] [place] [address] ETIC TURF WORKER documented in this encounter Plan of Treatment Upcoming Encounters Date Type Specialty Care Team Description 01/02/2022 Appointment Radiology PN Kian Winters Shelbie, JUANCARLOS [address] [place] [address] [place], [place] [address] (Wo rk) 01/04/2022 Appointment Oncology Kian Winters, JUANCARLOS [address] [place], [place] [address] (Wo rk) Scheduled Referrals Name Type Priority Associated Diagnoses Order S chedule Cardiovascular Surgery Referral Routine Malignant neoplasm of Ordered: 03/01/2021 Consult-Adults lower lobe of right lung (HRC) documented as of this encounter Visit Diagnoses Diagnosis Malignant neoplasm of lower lobe of righ t lung (HRC) - Primary documented in this encounter Care Teams Blocking Machine Operator Second Relationship Specialty Start Date End Date Theresa Hardy MD PCP - General 05/22/10 03/15/[address] [place] [address] documented as of this encounter
--- OUTSIDE RECORDS SUMMARY | 2021-12-03 08:33 | XMS_ITS | Encounter Summary ---
:1970 Author Organization [facility] Address [address], [place] [address] Care Team Providers Name Role Phone Theresa Hardy MD Primary Care Provider Reason for Visit Reason Comments Procedure Encounter Details Date Type Department Care Team Description 02/15/2021 Telephone Specialty Center [address] Stacia Ovalle MD Procedure Pulmonary Medicine [address] [facility] [address] [place] [address] [place], [place] [address] [phone] Social History Tobacco Use Types Packs/Day Years [...] at Date Recorded Female 02/21/2021 8:36 PM SKEIN WINDER documented as of this encounter Nursing Notes Jenny Schaeffer, RN - 02/15/2021 12:17 PM CST Pt called back and was given the appt dates and times. The COVID test appt and PFT appt worked for her, so nothing was rescheduled. She will call next week if she has any questions prior to the biopsy. N WINDER Kerri Lu, COLETTE - 02/15/2021 11:13 AM CST Left message [...] have to make so many trip to [place]. N WINDER documented in this encounter Plan of Treatment Upcoming Encounters Date Type Specialty Care Team Description 01/02/2022 Appointment Radiology PN Kian Winters, JUANCARLOS [address] [facility], [place] [address] (Wo rk) 01/04/2022 Appointment Oncology Kian Winters MBBS [address] [facility], [address] [address] (Wo rk) documented as of this encounter Visit Diagnoses Not on filedocumented in this encounter Care Teams Tallow Maker Relationship Specialty Start Date End Date Theresa Hardy MD PCP - General 05/22/10 03/15/21 [address] [place] [address] [place] [id number] documented as of this encounter
--- OUTSIDE RECORDS SUMMARY | 2021-12-03 08:33 | XMS_ITS | Encounter Summary ---
:1970 Author Organization [facility] Address [address] [address] Care Team Providers Name Role Phone David Choudhury MD Primary Care Provider [phone] Reason for Visit Auth/Cert Specialty Diagnoses / Procedures Referred By Contact Refer red To Contact Diagnoses Malignant neoplasm of lower lobe of right lung (HRC) Procedures THORACOSCOPY/THORACOTOMY/LUNG RESECTION Referral ID Status Reason Start Date Expiration Date Visits Requ ested Visits Authorized [id number] 1 1 Encounter Details Date Type Department Care Team Description 03/16/2021 Anesthesia Event [employer]ats[employer] Operating French Bravo MD [address] [place] [address] Rosalie Acevedo APRN, CRNA [address] [place] [address] [place] [address] Anesthesia Record Procedure Summary Procedure [...] Electr onically signed by Yoanna Garcia APRN, JANITOR HEAD 182 An Stop Care transferred . Name [...] g bupivacaine preservative free 0.25% injection (SENSORC PBALO) 25.5 mL dexmedetomidine (PRECEDEX) 20 mcg in [...] via Xi Amador MD Steiner, Ellen C, resolute professional documentation); T6-7; 19 G; Tolerated well; Met [...] Almquis t, Kathryn M, Time: 140; Placed CHILD NURSE, JANITOR HEAD CHILD NURSE, JANITOR HEAD By: JANITOR HEAD; Induction Type: Pre-O2, IV; Masking: Easy; ETT [...] by Lda, No; Chest; Lateral, Sidney Puentes, Disconti nue Right; 04/04/21; 1420 RN documented in [...] Date Recorded Female 02/21/2021 8:36 PM MACHINE III COREMAKER documented as of this encounter Miscellaneous Notes Anesthesia Postprocedure Evaluation - Pedro Bravo MD - 03/17/2021 12:44 AM CST [facility] Anesthesia Post-op Note Patient: Fifi Kasper Post-Op [...] by: Pedro Bravo MD 03/17/2021 12:44 AM INE III COREMAKER Anesthesia Procedure Notes - Xi Amador MD - 03/16/2021 11:53 AM MACHINE III COREMAKER Associated Order(s): A-Line A-Line Performed by: Xi [...] Performed and signed by Xi Amador MD INE III COREMAKER Anesthesia Procedure Notes - Xi Amador MD - 03/16/2021 10:58 AM MACHINE III COREMAKER Associated Order(s): Epidural Block Procedure: Epidural Block [...] using 3 mL of lidocaine 1.5% with 1:[id number] of epinephrine (unless otherwise indicatedin Local anesthesia section of note) Performed and signed by Xi Amador MD Performed by: Xi Amador MD 03/16/2021 at 10:58 AM INE III COREMAKER Anesthesia Preprocedure Evaluation - Xi Amador MD - 03/16/2021 10:18 AM MACHINE III COREMAKER [facility] Anesthesia Pre-op Evaluation Procedure: THORACOSCOPY/THORACOTOMY/LUNG RESECTION, Right [...] benefits and alternatives discussed with: Patient or Riding Silks Custodian agree tothe anesthesia treatment plan. Additional equipment needed: Arterial line and Double lumen ETT The patient and/or their senior sales representative were notified about the potential risks of damage to the lips, teeth, dental devices, mouth and airway. H&P Reviewed and Patient examined, no change observed IV access Antibiotics per surgery Electronically signed by: Xi Amador MD 03/16/2021 10:18 AM INE III COREMAKER documented in this encounter Plan of Treatment Upcoming Encounters Date Type Specialty Care Team Description 01/02/2022 Appointment Radiology PN Kian Winters MBBS [address] [facility] [place] [address] [address] (Wo rk) 01/04/2022 Appointment Oncology Kian Winters MBBS [address] [facility] [place] [address] [address] (Wo rk) documented as of this encounter Procedures Procedure Name Priority Date/Time Associated Diagnosis Comme nts A-LINE Routine 03/16/2021 11:53 AM Results for this MACHINE III COREMAKER procedure are i n the results section . EPIDURAL BLOCK Routine 03/16/2021 10:58 AM Result s for this MACHINE III COREMAKER procedure are i n the results section . documented in this encounter Results A-LINE (03/16/2021 11:53 AM MACHINE III COREMAKER) Narrative EXTERNAL RESULTS - 03/16/2021 11:53 AM [...] by Xi shea MD Xi Amador MD [facility] Performing Organization Address City/State/ZIP Code Phon e Number EXTERNAL RESULTS EPIDURAL BLOCK (03/16/2021 10:58 AM MACHINE III COREMAKER) Narrative EXTERNAL RESULTS - 03/16/2021 10:58 AM [facility] Xi Amador MD ? 03/16/2021 10:59 AM [...] 3 mL of lidocaine 1 .5% with 1:[id number] of epinephrine (unless otherwise indicated in Local [...] 0.25% PF (2.5 Started 03/16/2021 2:25 PM MACHINE III COREMAKER 6 mL/hr 6 mL/hr mg/mL) (SENSORCAINE) 0.25 % injection Regional Nerve Block, Starting on Fri03/16/21 at 1421, Until Fri03/16/21 at 1824 Given 03/16/2021 2:21 PM MACHINE III COREMAKER 5 mL ceFAZolin (aka ANCEF) 2 g in dextrose 100 ml Given 03/16/2021 2: 15 PM MACHINE III COREMAKER 2 g IVPB 2 g, Intravenous, Administer over 30 Minutes, ONCE, On Fri03/16/21 at 1000, For 1 dose, Infuse within 60 minutes prior to incision. Re-dose 1 gram IV every 4 hours after initial dose until incision closed. Re-dose if more than 1.5 L of blood loss. Pharmacy may adjust for renal insufficiency., Pre-op dexamethasone (DECADRON) injection Given 03/16/2021 2:22 PM MACHINE III COREMAKER 4 mg Intravenous, Starting on Fri03/16/21 at 1422, Until Fri03/16/21 at 1824 dexmedetomidine 20 mcg/5 mL injection Given 03/16/2021 5:51 PM MACHINE III COREMAKER 4 mcg Intravenous, Starting on Fri03/16/21 at 1747, Until Fri03/16/21 at 1824 Given 03/16/2021 5:47 PM MACHINE III COREMAKER 12 mcg ePHEDrine 10 mg/mL injection Given 03/16/2021 5:38 PM MACHINE III COREMAKER 10 mg Intravenous, Starting on Fri03/16/21 at 1456, Until Fri03/16/21 at 1824 Given 03/16/2021 4:44 PM MACHINE III COREMAKER 5 mg Given 03/16/2021 3:15 PM MACHINE III COREMAKER 10 mg fentaNYL (SUBLIMAZE) injection Given 03/16/2021 1:59 PM MACHINE III COREMAKER 50 mcg Intravenous, Starting on Fri03/16/21 at 1359, Until Fri03/16/21 at 1824 HYDROmorphone (DILAUDID) injection Given 03/16/2021 5:07 PM MACHINE III COREMAKER 0.5 mg Intravenous, Starting on Fri03/16/21 at 1707, Until Fri03/16/21 at 1824 Given 03/16/2021 5:00 PM MACHINE III COREMAKER 0.5 mg lactated ringers infusion Started 03/16/2021 4:56 PM MACHINE III COREMAKER 25 mL/hr, Intravenous, CONTINUOUS, Starting on Fri03/16/21 at 0945, Administer on all preop surgery patients, ages 12 and older, unless specified differently in the Protocol for Preop Initiation of IV fluids Order Set., Pre-op Restarted 03/16/2021 1:47 PM MACHINE III COREMAKER Started 03/16/2021 10:08 AM MACHINE III COREMAKER 25 mL/hr 25 mL/hr lidocaine PF (XYLOCAINE) 1 % injection Given 03/16/2021 10:50 AM MACHINE III COREMAKER 3 mL Subcutaneous, Starting on Fri03/16/21 at 1050 lidocaine PF (XYLOCAINE) 1 % injection Given 03/16/2021 11:38 AM MACHINE III COREMAKER 1 mL Subcutaneous, Starting on Fri03/16/21 at 1138 lidocaine PF (XYLOCAINE) 1 % injection Given 03/16/2021 1:59 PM MACHINE III COREMAKER 100 mg Intravenous, Starting on Fri03/16/21 at 1359 midazolam (VERSED) injection Given 03/16/2021 1:47 PM MACHINE III COREMAKER 2 mg Intravenous, Starting on Fri03/16/21 at 1347, Until Fri03/16/21 at 1824 ondansetron (ZOFRAN) injection Given 03/16/2021 4:56 PM MACHINE III COREMAKER 4 mg Intravenous, Starting on Fri03/16/21 at 1656, Until Fri03/16/21 at 1824 phenylephrine-NaCl 0.9% (DARWIN-SYNEPHRINE) Given 03/16/2021 5:34 P M MACHINE III COREMAKER 100 mcg injection Intravenous, Starting on Fri03/16/21 at 1422, Until Fri03/16/21 at 1824 Given 03/16/2021 5:24 PM MACHINE III COREMAKER 100 mcg Given 03/16/2021 5:18 PM MACHINE III COREMAKER 100 mcg propofol (DIPRIVAN) 10 mg/mL injection Given 03/16/2021 1:59 PM MACHINE III COREMAKER 150 mg Intravenous, Starting on Fri03/16/21 at 1359, Until Fri03/16/21 at 1824 rocuronium (ZEMURON) injection Given 03/16/2021 5:07 PM MACHINE III COREMAKER 40 mg Intravenous, Starting on Fri03/16/21 at 1400, Until Fri03/16/21 at 1824 Given 03/16/2021 4:16 PM MACHINE III COREMAKER 10 mg Given 03/16/2021 3:30 PM MACHINE III COREMAKER 10 mg sugammadex (BRIDION) injection Given 03/16/2021 5:42 PM MACHINE III COREMAKER 200 mg Intravenous, Starting on Fri03/16/21 at 1701, Until Fri03/16/21 at 1824 Given 03/16/2021 5:01 PM MACHINE III COREMAKER 200 mg documented in this encounter Care Teams Deputy Head Relationship Specialty Start Date End Date David Choudhury MD PCP - General Family Practice 03/16/[address] [place] [address] documented as of this encounter
--- OUTSIDE RECORDS SUMMARY | 2021-12-03 08:33 | XMS_ITS | Encounter Summary ---
:1970 Author Organization [facility] Address [address] [place] [address] Care Team Providers Name Role Phone Theresa Hardy MD Primary Care Provider Reason for Referral Procedure/Equipment (Routine) - Incomplete Specialty Diagnoses / Procedures Referred By Contact Refer red To Contact Diagnoses Malignant neoplasm of lower lobe of right lung (HRC) Pedro Tierney MD Procedures Case Request OR - Cardiothoracic Surgery: THORACOSCOPY/THORACOTOMY/LUNG RESECTION [address] [place], [place] [address] Referral ID Status Reason Start Date Expiration Date Visits V isits Requested Authorized [id number] Incomplete 03/09/2021 06/08/2022 1 1 RCOVER AGENT Reason for Visit Reason Comments CONSULT Consult/Transfer Care (Routine) - New Request Specialty Diagnoses / Procedures Referred By Contact Refer red To Contact Diagnoses Malignant neoplasm of lower lobe of right lung (HRC) Kian Winters MBBS [address] [place], [place] [address] Referral ID Status Reason Start Date Expiration Date Visits V isits Requested Authorized [id number] New Request 03/01/2021 05/31/2022 1 1 Encounter Details Date Type Department Care Team Description 03/09/2021 Office Visit [facility] Pedro Tierney, Malignant neoplasm Cardiothoracic Surge ry MD of lower lobe of [address] right lung (HRC) [place], [place] [address] (Primary Dx) [address] [place], [place] [phone] Social History Tobacco Use Types Packs/Day Years [...] at Date Recorded Female 02/21/2021 8:36 PM UNDERCOVER AGENT documented as of this encounter Last Filed Vital Signs Vital Sign Reading Time Taken Comments Blood Pressure 118/72 03/09/2021 9:11 AM UNDERCOVER AGENT Pulse 53 03/09/2021 9:11 AM UNDERCOVER AGENT Temperature - - Respiratory Rate - - Oxygen Saturation - - Inhaled Oxygen Concentration - - Weight 74.8 kg (165 lb) 03/09/2021 9:11 AM UNDERCOVER AGENT Height - - Body Mass Index 32.39 03/01/2021 12:59 PM UNDERCOVER AGENT documented in this encounter Progress Notes Pedro Tierney MD - 03/09/2021 12:00 AM CST NAME: MARII JOSÉ CSN: [id number] CLINIC NOTE CONSULTATION DATE OF SERVICE: 03/09/2021 [...] lives with her . She works at [employer] in the [facility]. She denies [...] patient and her counseling and coordinating care. PEDRO TIERNEY MD TAS/SHAILESHS /[id number] RCOVER AGENT documented in this encounter Plan of Treatment Upcoming Encounters Date Type Specialty Care Team Description 01/02/2022 Appointment Radiology PN Kian Winters, MBBS [address] [place], [place] [address] [address] (Wo rk) 01/04/2022 Appointment Oncology Kian Winters JUANCARLOS Morfin [address] [place] [place] [address] [address] (Wo rk) documented as of this encounter Results 2019 Novel Coronavirus (COVID-19) (03/13/2021 4:38 PM UNDERCOVER AGENT) [facility] Method Time Signature COVID-19 Not Not 03/14/2021 [facility] Interpretation Detected Detected 10:12 AM CENTRAL LAB UNDERCOVER AGENT Source Nares, left 03/14/2021 [facility] and right 10:12 AM CENTRAL LAB UNDERCOVER AGENT Specimen Anatomical Collection Method Collection Time Receive d Time (Source) Location / / Volume Laterality Swab (Source ENTIRE ANTERIOR Non-blood 03/13/2021 4:38 PM 2021 4:38 Required) NARIS / Unknown Collection / UNDERCOVER AGENT PM UNDERCOVER AGENT Unknown Narrative [facility] CENTRAL LAB - 03/14/2021 10:12 AM UNDERCOVER AGENT Tested by Polymerase Chain Reaction (PCR ), Leather Coverer-mediated amplification (TMA), or another nucleic acid amplifica tion test (NAAT). Pedro Tierney MD LAB_1 Performing Organization Address City/State/ZIP Code Phon e Number [facility] [address] [phone] documented in this encounter Visit Diagnoses Diagnosis Malignant neoplasm of lower lobe of righ t lung (HRC) - Primary documented in this encounter Care Teams Stock Trader Relationship Specialty Start Date End Date Theresa Hardy MD PCP - General 05/22/10 03/15/21 [address] [place] [address] [address] documented as of this encounter
--- OUTSIDE RECORDS SUMMARY | 2021-12-03 08:33 | XMS_ITS | Encounter Summary ---
:1970 Author Organization [facility] Address [address], [place] [address] Care Team Providers Name Role Phone David Choudhury MD Primary Care Provider [phone] Reason for Referral Procedure/Equipment (Routine) - Incomplete Specialty Diagnoses / Procedures Referred By Contact Refer red To Contact Diagnoses Diagnosis unknown Pedro Hull MD Procedures XR Portable Chest 1 View [address] [place], [place] [address] Referral ID Status Reason Start Date Expiration Date Visits V isits Requested Authorized [id number] Incomplete 03/16/2021 06/15/2022 1 1 RITY TECH Reason for Visit Auth/Cert Specialty Diagnoses / Procedures Referred By Contact Refer red To Contact Diagnoses Malignant neoplasm of lower lobe of right lung (HRC) Procedures THORACOSCOPY/THORACOTOMY/LUNG RESECTION Referral ID Status Reason Start Date Expiration Date Visits Requ ested Visits Authorized [id number] 1 1 Encounter Details Date Type Department Care Team Description 03/16/2021 Hospital Encounter [facility] Pedro Hull, Diagnosis unknown [address] [facility] [address] [place], [place] [phone] [address] Social History Tobacco Use Types Packs/Day Years [...] at Date Recorded Female 02/21/2021 8:36 PM SECURITY TECH documented as of this encounter Medications at [...] [address] [facility] N [address] (Wo rk) 01/04/2022 Appointment Oncology Kian Winters MBBS [address] [facility], [address] [address] (Wo rk) documented as of this encounter Procedures Procedure Name Priority Date/Time Associated Diagnosis Comme nts XR PORTABLE CHEST 1 Routine 03/16/2021 6:09 PM Diagnosis unkno wn Results for this VIEW SECURITY TECH procedure are i n the results section. documented in this encounter Results XR Portable Chest 1 View (03/16/2021 6:09 PM SECURITY TECH) Anatomical Region Laterality Modality Chest, Lung Radiographic Imaging Specimen (Source) Anatomical Collection Method Collection Time Re ceived Time Location / / Volume Laterality 03/16/2021 5:45 PM SECURITY TECH Impressions 03/16/2021 6:13 PM SECURITY TECH COMPARISON: ??02/22/2021. FINDINGS: ??One view was obtained. [...] mortality documented in this encounter Care Teams Machine Molder Squeeze Relationship Specialty Start Date End Date David Choudhury MD PCP - General Family Practice 03/16/21 [address] [place] [address] documented as of this encounter
--- OUTSIDE RECORDS SUMMARY | 2021-12-03 08:33 | XMS_ITS | Encounter Summary ---
:1970 [facility] Address [address], [place] [address] Care Team Providers Name Role Phone Theresa Hardy MD Primary Care Provider Encounter Details Date Type Department Care Team Description 02/20/2021 Notes/Orders [facility] Theresa Hardy Co ntact with and Up (suspected) exposure [address] [place] [facility] [address] [place]19 [place] [address] [phone] (Wo rk) Social History Tobacco Use Types [...] at Date Recorded Female 02/21/2021 8:36 PM OPERATIONS AND MAINTENANCE TECHNICAN documented as of this encounter Plan of Treatment Upcoming Encounters Date Type Specialty Care Team Description 01/02/2022 Appointment Radiology PN Kian Winters, MBBS [address] [place], [place] [address] (Wo rk) 01/04/2022 Appointment Oncology Kian Winters, MBBS [address] [place] [address] (Wo rk) documented as of this encounter Results Asymptomatic - 2019 Novel Coronavirus (COVID-19) (02/20/2021 4:34 PM OPERATIONS AND MAINTENANCE TECHNICAN) [facility] Method Time Signature COVID-19 Not Not 02/21/2021 [facility] Interpretation Detected Detected 10:52 AM CENTRAL LAB OPERATIONS AND MAINTENANCE TECHNICAN Source Nares, left 02/21/2021 [facility] and right 10:52 AM CENTRAL LAB OPERATIONS AND MAINTENANCE TECHNICAN Specimen Anatomical Collection Method Collection Time Receive d Time (Source) Location / / Volume Laterality Swab (Source ENTIRE ANTERIOR Non-blood 02/20/2021 4:34 PM 2021 4:43 Required) NARIS / Unknown Collection / OPERATIONS AND MAINTENANCE TECHNICAN PM OPERATIONS AND MAINTENANCE TECHNICAN Unknown Narrative [facility] C[facility]TRAL [facility] - 02/21/2021 10:52 AM OPERATIONS AND MAINTENANCE TECHNICAN Test performed by [facility] Mediated Amplification. TMA has been shown to be equivalent to commercial real-time PCR t ests. This test has been authorized by the FDA under an Emergency Use Authorization (EUA) for use by authorized laboratories. Theresa Hardy MD LAB_1 Performing Organization Address City/State/ZIP Code Phon e Number [facility] [address] [phone] documented in this encounter Visit Diagnoses Diagnosis Contact with and (suspected) exposure to covid-19 documented in this encounter Care Teams Donations Attendant Relationship Specialty Start Date End Date Theresa Hardy MD PCP - General 05/22/10 03/15/[address] [place] [address] documented as of this encounter
--- OUTSIDE RECORDS SUMMARY | 2021-12-03 08:33 | XMS_ITS | Encounter Summary ---
:1970 Author Organization [facility] Address [address], [place] [address] Care Team Providers Name Role Phone Theresa Hardy MD Primary Care Provider Reason for Visit Reason Comments Appt. Scheduled Encounter Details Date Type Department Care Team Description 02/26/2021 Telephone Specialty Center [address] Stacia Ovalle MD Appt. Scheduled Pulmonary Medicine [address] [facility] [address] [place] [address] [place] [address] [phone] Social History Tobacco Use Types Packs/Day Years [...] at Date Recorded Female 02/21/2021 8:36 PM ETCHER PHOTOENGRAVING documented as of this encounter Nursing Notes Jenny Schaeffer RN - 02/26/2021 8:[address] Ovalle had a 9:45 am cancellation this morning and said he could call pt at that time if she didn't want to wait until noon. LVM for pt to call back to see if she would want to move this appt up. ER PHOTOENGRAVING documented in this encounter Plan of Treatment Upcoming Encounters Date Type Specialty Care Team Description 01/02/2022 Appointment Radiology PN Kian Winters MBBS [address] [facility], [place] [address] (Wo rk) 01/04/2022 Appointment Oncology Kian Winters MBBS [address] [facility], [place] [address] (Wo rk) documented as of this encounter Visit Diagnoses Not on filedocumented in this encounter Care Teams Pediatric Physiatrist Relationship Specialty Start Date End Date Theresa Hardy MD PCP - General 05/22/10 03/15/21 [address] [place] [address] [place] [address] documented as of this encounter
--- OUTSIDE RECORDS SUMMARY | 2021-12-03 08:33 | XMS_ITS | Encounter Summary ---
:1970 Author Organization [facility] Address [address] [address] Care Team Providers Name Role Phone Theresa Hardy MD Primary Care Provider Reason for Visit Procedure/Equipment (Routine) - Incomplete Specialty Diagnoses / Procedures Referred By Contact Refer red To Contact Procedures Provider, Foreign Images Foreign Image(S) CT Chest [address] [place] [address] Referral ID Status Reason Start Date Expiration Date Visits V isits Requested Authorized [id number] Incomplete 02/13/2021 05/15/2022 1 1 Encounter Details Date Type Department Care Team Description 02/02/2021 Ancillary Procedure RC Radiology PACS Provider, Foreign [address] [place] [address] [address] [place] [address] Social History Tobacco Use Types Packs/Day Years [...] at Date Recorded Female 02/21/2021 8:36 PM CANINE SERVICE INSTRUCTOR TRAINER documented as of this encounter Plan of Treatment Upcoming Encounters Date Type Specialty Care Team Description 01/02/2022 Appointment Radiology PN Kian Winters, MBBS [address] [place] [address] (Wo rk) 01/04/2022 Appointment Oncology Kian Winters, ENRIQUEBS [address] [place] [address] (Wo rk) documented as of this encounter Procedures Procedure Name Priority Date/Time Associated Diagnosis Comme nts FOREIGN IMAGE(S) CT Routine 02/02/2021 8:55 AM Re sults for this CHEST CANINE SERVICE INSTRUCTOR TRAINER procedure are i n the results section. documented in this encounter Results Foreign Image(S) CT Chest (02/02/2021 8:55 AM CANINE SERVICE INSTRUCTOR TRAINER) Specimen (Source) Anatomical Location Collection Method / Collectio n Time Received Time / Laterality Volume Narrative POCT - 02/13/2021 8:54 AM CANINE SERVICE INSTRUCTOR TRAINER These outside images have been uploaded into PACS. If the results were provided, they will be located in the mark raymond's chart under the Media or Imaging tab. Foreign Images Provider RAD NON-REPORTABLES Performing Organization Address City/State/ZIP Code Phon e Number POCT documented in this encounter Visit Diagnoses Not on filedocumented in this encounter Care Teams Porcelain Enamel Installer Relationship Specialty Start Date End Date Theresa Hardy MD PCP - General 05/22/10 03/15/21 [address] [place] [address] [place] [address] documented as of this encounter
--- OUTSIDE RECORDS SUMMARY | 2021-12-03 08:33 | XMS_ITS | Encounter Summary ---
:1970 Author Organization [facility] Address [address], [place] [address] Care Team Providers Name Role Phone Theresa Hardy MD Primary Care Provider Reason for Referral Consult/Transfer Care (Routine) - New Request Specialty Diagnoses / Procedures Referred By Contact Refer red To Contact Diagnoses Lung mass Greyson Ovalle MD [address] [place], [place] [address] Referral ID Status Reason Start Date Expiration Date Visits V isits Requested Authorized [id number] New Request 02/26/2021 05/28/2022 1 1 Scheduling Instructions Your provider has recommended an appoint ment with [facility]. You may call [phone] to [facility]. We suggest you call your health insurance company about your coverage and benefits for this appointment. FIC CONTROL SUPERVISOR Procedure/Equipment (Routine) - Incomplete Specialty Diagnoses / Procedures Referred By Contact Refer red To Contact Diagnoses Greyson Ludwig MD Procedures NM PET/CT Skull Base To Mid Thigh [address] [place], [place] [address] Referral ID Status Reason Start Date Expiration Date Visits V isits Requested Authorized [id number] Incomplete 02/26/2021 05/28/2022 6 6 FIC CONTROL SUPERVISOR Reason for Visit Reason Comments Follow-up Encounter Details Date Type Department Care Team Description 02/26/2021 Phone Visit Specialty Center 3931 Greyson Ovalle, Lung mass (Primary Pulmonary Medicine MD Dx) 3931 [facility] [address] [place] [address] [phone] (Wo rk) Social History Tobacco Use Types [...] at Date Recorded Female 02/21/2021 8:36 PM TRAFFIC CONTROL SUPERVISOR documented as of this encounter Last Filed Vital Signs Vital Sign Reading Time Taken Comments Blood Pressure - - Pulse - - Temperature 36.8 ??C (98.2 ??F) 02/26/2021 11:08 AM patient reported TRAFFIC CONTROL SUPERVISOR Respiratory Rate - - Oxygen Saturation - - Inhaled Oxygen Concentration - - Weight 72.6 kg (160 lb) 02/26/2021 11:08 AM patient rep orted TRAFFIC CONTROL SUPERVISOR Height 152.4 cm (5') 02/26/2021 11:08 AM patient repo rted TRAFFIC CONTROL SUPERVISOR Body Mass Index 31.25 02/26/2021 11:08 AM TRAFFIC CONTROL SUPERVISOR documented in this encounter Progress Notes Greyson Ovalle MD - 02/26/2021 12:00 AM CST NAME: MARII JOSÉ CSN: [id number] CLINIC NOTE DATE OF SERVICE: 02/26/2021 : [...] any time. TT: 30. MD JANICE MCCULLOUGH/CHERRY /[id number] FIC CONTROL SUPERVISOR documented in this encounter Plan of Treatment Upcoming Encounters Date Type Specialty Care Team Description 01/02/2022 Appointment Radiology PN Kian Winters MBBS 3931 [facility] [address] (Wo rk) 01/04/2022 Appointment Oncology Kian Winters MBBS [address] [place] [facility] [address] [place] [address] [address] (Wo rk) Scheduled Referrals Name Type Priority Associated Diagnoses Order S chedule Oncology/Hematology Referral Routine Lung mass Ordered: 02/26/2021 Consult Adult documented as of this encounter Results NM PET/CT Skull Base To Mid Thigh (02/28/2021 3:54 PM TRAFFIC CONTROL SUPERVISOR) Anatomical Region Laterality Modality Nuclear Medicine Specimen (Source) Anatomical Collection Method Collection Time Re ceived Time Location / / Volume Laterality 02/28/2021 2:13 PM TRAFFIC CONTROL SUPERVISOR Impressions 02/28/2021 4:25 PM TRAFFIC CONTROL SUPERVISOR TECHNIQUE: Images were obtained from the skull [...] chest documented in this encounter Care Teams Video Editing Intern Relationship Specialty Start Date End Date Theresa Hardy MD PCP - General 05/22/10 03/15/21 [address] [place] T[place] [address] documented as of this encounter
--- OUTSIDE RECORDS SUMMARY | 2021-12-03 08:33 | XMS_ITS | Encounter Summary ---
:1970 [facility] Address [address] [place] [address] Care Team Providers Name Role Phone David Choudhury MD Primary Care Provider [phone] Encounter Details Date Type Department Care Team Description 03/16/2021 Orders Only HIM DEPARTMENT Provider, Vilma ale[place] [address] Social History Tobacco Use Types Packs/Day Years [...] at Date Recorded Female 02/21/2021 8:36 PM PATIENT CARE SPECIALIST documented as of this encounter Plan of Treatment Upcoming Encounters Date Type Specialty Care Team Description 01/02/2022 Appointment Radiology PN Kian Winters MBBS [address] [facility] [place] [address] [address] (Wo rk) 01/04/2022 Appointment Oncology Kian Winters MBBS 5[address] [facility] [place] [address] [address] (Wo rk) documented as of this encounter [...] on filedocumented in this encounter Care Teams Costume Shop Manager Relationship Specialty Start Date End Date David Choudhury MD PCP - General Family Practice 03/16/21 [address] [facility] [place] [id number] documented as of this encounter
--- OUTSIDE RECORDS SUMMARY | 2021-12-03 08:33 | XMS_ITS | Encounter Summary ---
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 N [phone] (Wo rk) 01/04/2022 Appointment Oncology Kian Winters Shel[place], ENRIQUEBS 3931 [facility] [place] [address] [address] (Wo rk) documented as of this encounter Procedures Procedure Name Priority Date/Time Associated Comments Diagnosis 2019 NOVEL Routine 03/13/2021 4:38 PM Malignant neoplasm Res ults for this CORONAVIRUS DESKTOP PUBLISHER of lower lobe of procedure a re in right lung (HRC) the results section. documented in this encounter Results 2019 Novel Coronavirus (COVID-19) (03/13/2021 4:38 PM DESKTOP PUBLISHER) [facility] Method Time Signature COVID-19 Not Not 03/14/2021 [facility] Interpretation Detected Detected 10:12 AM CENTRAL LAB DESKTOP PUBLISHER Source Nares, left [facility]14[facility]20[facility] and right 10:12 AM CENTRAL LAB DESKTOP PUBLISHER Specimen Anatomical Collection Method Collection Time Receive d Time (Source) Location / / Volume Laterality Swab (Source ENTIRE ANTERIOR Non-blood 03/13/2021 4:38 PM 2021 4:38 Required) NARIS / Unknown Collection / DESKTOP PUBLISHER PM DESKTOP PUBLISHER Unknown Narrative [facility] CENTRAL LAB - 03/14/2021 10:12 AM DESKTOP PUBLISHER Tested by Polymerase Chain Reaction (PCR ), Mainframe Programmer-mediated amplification (TMA), or another nucleic acid amplifica tion test (NAAT). 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
--- OUTSIDE RECORDS SUMMARY | 2021-12-03 08:33 | XMS_ITS | Encounter Summary ---
:1970 Author Organization [facility] Address [address], [place] [address] Care Team Providers Name Role Phone Theresa Hardy MD Primary Care Provider Reason for Referral Procedure/Equipment (Routine) - Incomplete Specialty Diagnoses / Procedures Referred By Contact Refer red To Contact Diagnoses Lung mass Greyson Ovalle MD Procedures NM PET/CT Skull Base To Mid Thigh [address] [place], [place] [address] Referral ID Status Reason Start Date Expiration Date Visits V isits Requested Authorized [id number] Incomplete 02/26/2021 05/28/2022 6 6 S CONSULTANT INSURANCE Reason for Visit Procedure/Equipment (Routine) - Incomplete Specialty Diagnoses / Procedures Referred By Contact Refer red To Contact Diagnoses Lung mass Greyson Ovalle MD Procedures NM PET/CT Skull Base To Mid Thigh [address] [place], [place] [address] Referral ID Status Reason Start Date Expiration Date Visits V isits Requested Authorized [id number] Incomplete 02/26/2021 05/28/2022 6 6 Encounter Details Date Type Department Care Team Description 02/28/2021 Hospital Encounter [facility] Greyson Garcia Lung mass Medicine 6[address] [facility]. [address] [place] [address] [phone] (Wo rk) Social History Tobacco Use Types [...] Date Recorded Female 02/21/2021 8:36 PM SALES CONSULTANT INSURANCE documented as of this encounter Medications at [...] (AKA Take 1 tablet by 20 0 8 03/16/2021 FLEXERIL) 10 MG tablet mouth [...] PN Kian Winters MBBS 3931 [facility], N [address] (Wo rk) 01/04/2022 Appointment Oncology Kian Winters MBBS 39[address] [facility], N [address] (Wo rk) documented as of this encounter Procedures Procedure Name Priority Date/Time Associated Diagnosis Comme nts NM PET/CT SKULL Routine 02/28/2021 3:54 PM Lung mass Result s for this BASE TO MID THIGH SALES CONSULTANT INSURANCE procedure are in the results section. GLUCOSE, WHOLE Routine 02/28/2021 2:25 PM Results for this BLOOD POCT SALES CONSULTANT INSURANCE procedure are i n the results section. documented in this encounter Results NM PET/CT Skull Base To Mid Thigh (02/28/2021 3:54 PM SALES CONSULTANT INSURANCE) Anatomical Region Laterality Modality Nuclear Medicine Specimen (Source) Anatomical Collection Method Collection Time Re ceived Time Location / / Volume Laterality 02/28/2021 2:13 PM SALES CONSULTANT INSURANCE Impressions 02/28/2021 4:25 PM SALES CONSULTANT INSURANCE TECHNIQUE: Images were obtained from the skull [...] Glucose, Whole Blood POCT (02/28/2021 2:25 PM SALES CONSULTANT INSURANCE) [facility] gist Method Time Signature Glucose, Whole 82 70 - 180 02/28/2021 [facility] Blood mg/dL 2:26 PM SALES CONSULTANT INSURANCE LABORATORY Performing MT NUC MED 02/28/2021 [facility] Location 2:26 PM SALES CONSULTANT INSURANCE LABORATORY Specimen Anatomical Collection Method Collection Time Receive d Time (Source) Location / / Volume Laterality Blood 02/28/2021 2:25 PM 2 2:26 SALES CONSULTANT INSURANCE PM SALES CONSULTANT INSURANCE Greyson Ovalle MD LAB_1 Performing Organization Address City/State/ZIP Code Phon e Number [facility] [address] [place] [address] documented in this encounter Visit Diagnoses Diagnosis Lung mass Swelling, mass, or lump in chest documented in this encounter Administered Medications Inactive Administered Medications - up to 3 most recent administrations Medication Order MAR Action Action Date Dose Rate Site fluorine-18 Given 02/28/2021 2:30 10.48 millicuries fluorodeoxyglucose (F18) PM SALES CONSULTANT INSURANCE injection 10.48 millicurie 10.48 millicurie, Intravenous, ONCE, On Fri02/28/21 at 1500, For 1 dose, Radiology sodium chloride 0.9% injection 20 mL Given 02/28/2021 2:30 PM SALES CONSULTANT INSURANCE 20 mL 20 mL, Intravenous, ONCE, On Fri02/28/21 at 1500, For 1 dose, For line care., Radiology documented in this encounter Care Teams Stone Carriage Operator Relationship Specialty Start Date End Date Theresa Hardy MD PCP - General 05/22/10 03/15/21 [address] [place] [facility] [address] documented as of this encounter
--- OUTSIDE RECORDS SUMMARY | 2021-12-03 08:33 | XMS_ITS | Encounter Summary ---
:1970 Author [facility] Address [address], [place] [address] Care Team Providers Name Role Phone Theresa Hardy MD Primary Care Provider Encounter Details Date Type Department Care Team Description 02/20/2021 Lab Visit [facility] with and Laboratory [place] [address] [facility] covid-19 [place] [address] Social History Tobacco Use [...] at Date Recorded Female 02/21/2021 8:36 PM WING COMMANDER documented as of this encounter Plan of Treatment Upcoming Encounters Date Type Specialty Care Team Description 01/02/2022 Appointment Radiology PN Kian Winters, MBBS [address] [facility] [place] [address] [address] (Wo rk) 01/04/2022 Appointment Oncology Kian Winters Shel[place], ENRIQUEBS 3931 [facility] [place] [address] [address] (Wo rk) documented as of this encounter Procedures Procedure Name Priority Date/Time Associated Comments Diagnosis 2019 NOVEL Routine 02/20/2021 4:34 PM Contact with and Resul ts for this CORONAVIRUS WING COMMANDER (suspected) procedure are i n exposure to the results covid-19 section. documented in this encounter Results Asymptomatic - 2019 Novel Coronavirus (COVID-19) (02/20/2021 4:34 PM WING COMMANDER) [facility] Method Time Signature COVID-19 Not Not 02/21/2021 [facility] Interpretation Detected Detected 10:52 AM CENTRAL LAB WING COMMANDER Source Nares, left 02/21/2021 [facility] and right 10:52 AM CENTRAL LAB WING COMMANDER Specimen Anatomical Collection Method Collection Time Receive d Time (Source) Location / / Volume Laterality Swab (Source ENTIRE ANTERIOR Non-blood 02/20/2021 4:34 PM 2021 4:43 Required) NARIS / Unknown Collection / WING COMMANDER PM WING COMMANDER Unknown Narrative [facility] CENTRAL LAB - 02/21/2021 10:52 AM WING COMMANDER Test performed by Medical Appointment Clerk Mediated Amplification. TMA has been shown to be equivalent to commercial real-time PCR t ests. This test has been authorized by the FDA under an Emergency Use Authorization (EUA) for use by authorized laboratories. Theresa Hardy MD LAB_1 Performing Organization Address City/State/ZIP Code Phon e Number [facility] [address] [phone] documented in this encounter Visit Diagnoses Diagnosis Contact with and (suspected) exposure to covid-19 documented in this encounter Care Teams Copra Sampler Relationship Specialty Start Date End Date Theresa Hardy MD PCP - General 05/22/10 03/15/21 [address] [place] [address] documented as of this encounter
--- OUTSIDE RECORDS SUMMARY | 2021-12-03 08:34 | XMS_ITS | Encounter Summary ---
:1970 Author Organization [facility] Address [address], [place] [address] Care Team Providers Name Role Phone Theresa Hardy MD Primary Care Provider Encounter Details Date Type Department Care Team Description 03/31/2006 PN Conversion Only SORIN CONVERSIO N Theresa Hardy, [address] [place] [address] [address] [facility] [address] [place] [address] (Wo rk) Social History Tobacco [...] Date Recorded Female 02/21/2021 8:36 PM MACHINE STONE POLISHER documented as of this encounter Plan of Treatment Upcoming Encounters Date Type Specialty Care Team Description 01/02/2022 Appointment Radiology PN Kian Winters, JUANCARLOS 58[address] [facility] N [address] (Wo rk) 01/04/2022 Appointment Oncology Kian Winters, ENRIQUEBS 3931 [facility] [place], [place] [address] (Wo rk) documented as of this encounter Procedures Procedure Name Priority Date/Time Associated Comments Diagnosis GLUCOSE Routine 03/31/2006 9:50 AM Results f or this MACHINE STONE POLISHER procedure are i n the results section. LIPID PANEL AND Routine 03/31/2006 9:50 AM Result s for this DIRECT LDL(IF MACHINE STONE POLISHER procedure are in NEEDED) the results section. HGB A1C Routine 03/31/2006 9:50 AM Results f or this MACHINE STONE POLISHER procedure are i n the results section. ANATOMICAL PATH Routine 03/31/2006 7:31 AM Result s for this LIQUID BASED MACHINE STONE POLISHER procedure are i n the results section. documented in this encounter Results Glucose (03/31/2006 9:50 AM MACHINE STONE POLISHER) athologist Signature Length Of Fast 12.0 Hours [facility] Lab Glucose 90 60 - 100 [facility] mg/dL Specimen (Source) Anatomical Collection Method Collection Time Re ceived Time Location / / Volume Laterality 03/31/2006 9:50 AM MACHINE STONE POLISHER Theresa Hardy MD LAB_1 Performing Organization Address City/State/ZIP Code Phon e Number [facility] Lipid Panel and Direct LDL(If Needed) (03/31/2006 9:50 AM MACHINE STONE POLISHER) Patholo gist Method Time Signature Length Of [...] / / Volume Laterality 03/31/2006 9:50 AM MACHINE STONE POLISHER Theresa Hardy MD LAB_1 Performing Organization Address City/State/ZIP Code Phon e Number [facility] Hgb A1c (03/31/2006 9:50 AM MACHINE STONE POLISHER) athologist Signature HGB A1C 5.4 <6.0 % [facility] CONVERSION Specimen (Source) Anatomical Collection Method Collection Time Re ceived Time Location / / Volume Laterality 03/31/2006 9:50 AM MACHINE STONE POLISHER Theresa Hardy MD LAB_1 Performing Organization Address City/State/ZIP Code Phon e Number [facility] CONVERSION Pap Smear (03/31/2006 7:31 AM MACHINE STONE POLISHER) [facility] Method Time Signature PAP Smear SEE TEXT No normal [facility] CONVERSION Liquid Based range Comment: Patient: MARII JOSÉ ? CERVICAL CYTOLOGY REPORT Pathology # ??[id number] ?Date Obtained: ? Date Received: CYTOLOGIC IMPRESSION: Negative for intraepithelial lesion or m alignancy. Verified 04/02/06 by: ??MB ? (electronic signature) ? AAKASH TIONAL DATA LMP: CLINICAL HIST LIQUID BASED PAP CERVICAL SPECIMEN ADEQUACY: ?? Satisfactory. ENDOCERVICAL CELLS: ??Present. Specimen (Source) Anatomical Collection Method Collection Time Re ceived Time Location / / Volume Laterality 03/31/2006 7:31 AM MACHINE STONE POLISHER Theresa Hardy MD LAB_1 Performing Organization Address City/State/ZIP Code Phon e Number [facility] documented in this encounter Visit Diagnoses Not on filedocumented in this encounter Care Teams Sap Solutions Architect Relationship Specialty Start Date End Date Theresa Hardy MD PCP - General 05/22/10 03/15/[address] [place] [address] documented as of this encounter
--- OUTSIDE RECORDS SUMMARY | 2021-12-03 08:34 | XMS_ITS | Encounter Summary ---
:1970 Author Organization [facility] Address [address], [place] [address] Care Team Providers Name Role Phone Theresa Hardy MD Primary Care Provider Reason for Visit Reason Comments Other Encounter Details Date Type Department Care Team Description 09/08/2006 Telephone [facility], Message Other [address] [place] [address] Social History Tobacco Use Types [...] at Date Recorded Female 02/21/2021 8:36 PM SERVER CASHIER documented as of this encounter [facility], Message - 09/08/2006 2:34 PM CDT Phone Note filed by [employer] at 06/06/1051 Author: Message [employer] Service: (none) Author Type: (none) Filed: 06/06/1051 Note Time: 09/08/06 1434 Status: Signed Skate Maker: Message [employer] Non -Symptom Message from Front Line Caller Name/Relationship: Fifi Kasper Primary Motor Equipment Commanding Officer:Qing Hua Message: I am returning her call regarding test results, she called me about my ultra sound. Could she please return this call? Thanks Utility Repairer:Fifi Belcher call back number:[phone] Best time to call back:anytime Is it [...] notified. Acknowledged by CAROL ONEILL on 3:57pm ER CASHIER documented in this encounter Plan of Treatment Upcoming Encounters Date Type Specialty Care Team Description 01/02/2022 Appointment Radiology PN Kian Winters MBBS [address] [place] [address] [address] [address] (Opal osman) 01/04/2022 Appointment Oncology Kian Winters MBBS [address] [place] [facility] [place] [address] (Opal osman) documented as of this encounter Visit Diagnoses Not on filedocumented in this encounter Care Teams Photogrammetric Tech Relationship Specialty Start Date End Date Theresa Hardy MD PCP - General 05/22/10 03/15/21 [address] [place] [address] documented as of this encounter
--- OUTSIDE RECORDS SUMMARY | 2021-12-03 08:34 | XMS_ITS | Encounter Summary ---
:1970 Author [facility] Address [address], [place] [address] Care Team Providers Name Role Phone Theresa Hardy MD Primary Care Provider Reason for Visit Reason Comments Other Encounter Details Date Type Department Care Team Description 04/18/2006 Telephone [facility] Juan, [place] Other [address] [place] [address] [place] [address] [phone] (Wo rk) Social History Tobacco Use Types [...] at Date Recorded Female 02/21/2021 8:36 PM PERINATAL NURSE documented as of this encounter [facility], Message - 04/18/2006 11:59 AM CST Phone Note filed by [employer] at 06/05/10 4753 Author: Message Center Service: (none) Author Type: (none) Filed: 06/05/10 3688 Note Time: 04/18/06 1159 Status: Signed National Flatbed Truck Driver: Nate Englewood Prescription Refill Please provide enough refills to last until patient's next visit. Comment:- Pharmacy Seq #:-[phone] Pharmacy Name[facility] Street or City:-[place] Clinician Name:-Domitila Hardy Drug Name/Strength:-Topamax 100MG tab Sig: Dose/Route/Freq:-take one tab twice daily Quantity & Last Fill:-60 03/19/06 Created on 18Apr2006 11:59am by ISRAEL VAZQUEZ On 18Apr2006 12:58pm ASA DOYLE wrote: Rx faxed. Acknowledged by ASA DOYLE on 12:58pm NATAL NURSE documented in this encounter Plan of Treatment Upcoming Encounters Date Type Specialty Care Team Description 01/02/2022 Appointment Radiology PN iKan Winters MBBS 39[address] [facility], N [address] (Wo rk) 01/04/2022 Appointment Oncology Kian Winters MBBS 39[address] [facility], N [address] (Wo rk) documented as of this encounter Visit Diagnoses Not on filedocumented in this encounter Care Teams Compositor Apprentice Relationship Specialty Start Date End Date Theresa Hardy MD PCP - General 05/22/10 03/15/21 [address] [place] [address] documented as of this encounter
--- OUTSIDE RECORDS SUMMARY | 2021-12-03 08:34 | XMS_ITS | Encounter Summary ---
:1970 [facility] Address [address] [address] Care Team Providers Name Role Phone Theresa Hardy MD Primary Care Provider Reason for Visit Reason Comments Other Encounter Details Date Type Department Care Team Description 01/14/2007 Telephone [facility], Message Other [address] [place] [address] Social History Tobacco Use Types [...] at Date Recorded Female 02/21/2021 8:36 PM NICKEL PLANT OPERATOR documented as of this encounter [facility], Message - 01/14/2007 8:36 AM CST Phone Note filed by [employer] at 06/06/10932 Author: [employer] Service: (none) Author Type: (none) Filed: 06/06/10932 Note Time: 01/14/07835 Status: Signed Statistical Engineer: [employer] Prescription Refill Please provide enough refills to last until patient's next visit. Comment:-Appt Apr 06 Pharmacy Seq #:-[phone] [facility] Street or City:-[place] Clinician Name:-Domitila Hardy Drug Name/Strength:-Imitrex 50mg tab Sig: Dose/Route/Freq:-take one tab as needed Quantity & Last Fill:-50 03/04/06 Created on 14Jan2007 8:36am by ISRAEL VAZQUEZ On 14Jan2007 2:48pm LINDSEY HELM wrote: Renewed medication per medication refill protocol. EL PLANT OPERATOR documented in this encounter Plan of Treatment Upcoming Encounters Date Type Specialty Care Team Description 01/02/2022 Appointment Radiology PN Kian Winters, JUANCARLOS [address] [place] [facility] [place] [address] [address] (Wo rk) 01/04/2022 Appointment Oncology Kian Winters MBBS [address] [place] [facility] [place] [address] [address] (Wo rk) documented as of this encounter Visit Diagnoses Not on filedocumented in this encounter Care Teams Document Imaging Specialist Relationship Specialty Start Date End Date Theresa Hardy MD PCP - General 05/22/10 03/15/21 [address] [place] [address] documented as of this encounter
--- OUTSIDE RECORDS SUMMARY | 2021-12-03 08:34 | XMS_ITS | Encounter Summary ---
:1970 Author Organization [facility] Address [address] [address] Care Team Providers Name Role Phone Mariaelena Hardy MD Primary Care Provider Encounter Details Date Type Department Care Team Description 03/31/2006 Office Visit [facility] [place] [address] [place] [address] [place], [place] [address] (Wo rk) Social History Tobacco Use Types [...] at Date Recorded Female 02/21/2021 8:36 PM SELF DEFENSE INSTRUCTOR documented as of this encounter Last Filed Vital Signs Vital Sign Reading Time Taken Comments Blood Pressure 110/68 03/31/2006 8:58 AM SELF DEFENSE INSTRUCTOR Pulse 70 03/31/2006 8:58 AM SELF DEFENSE INSTRUCTOR Temperature - - Respiratory Rate - - Oxygen Saturation - - Inhaled Oxygen Concentration - - Weight 66.7 kg (146 lb 15.7 oz) 03/31/2006 8:58 AM C: 6 6.7kg SELF DEFENSE INSTRUCTOR Height 149.9 cm (4' 11) 03/31/2006 8:58 AM C: 149.9cm SELF DEFENSE INSTRUCTOR Body Mass Index 29.69 03/31/2006 8:58 AM SELF DEFENSE INSTRUCTOR documented in this encounter Progress Notes Mariaelena Hardy MD - 03/31/2006 12:01 AM CST H&P signed by Mariaelena Hardy MD at 04/20/06 1939 Author: Mariaelena Hardy MD Service: (none) Author Type: Physician Filed: 06/08/10 1729 Note Time: 03/31/06 0001 Status: Signed Hood Maker: Mariaelena Hardy MD (Physician) NAME: MARII JOSÉ MR#: [id number] ACCT: [id number] VISIT: [id number] DICTATING CLINICIAN: MARIAELENA HARDY MD JOB: [id number] LOC: 502 CLINIC PHYSICAL DATE OF VISIT: [...] 2. Migraine headaches, stable. PLAN: See assessment. SS:[id number] C: 04/01/06 18:04 DOCUMENT: [id number] DEFENSE INSTRUCTOR documented in this encounter Plan of Treatment Upcoming Encounters Date Type Specialty Care Team Description 01/02/2022 Appointment Radiology PN Kian Winters MBBS [address] [place] [address] [place] N [address] (Opal osman) 01/04/2022 Appointment Oncology Kian Winters MBBS [address] [place] [address] emmanuel Domitila [address] [place] N [address] (Opal osman) documented as of this encounter Visit Diagnoses Not on filedocumented in this encounter Care Teams Studio Couch Frame Builder Relationship Specialty Start Date End Date Mariaelena Hardy MD PCP - General 05/22/10 03/15/21 [address] [place] [address] documented as of this encounter
--- OUTSIDE RECORDS SUMMARY | 2021-12-03 08:34 | XMS_ITS | Encounter Summary ---
:1970 Author Organization [facility] Address [address] [address] Care Team Providers Name Role Phone Theresa Hardy MD Primary Care Provider Reason for Visit Reason Comments Other Encounter Details Date Type Department Care Team Description 09/10/2006 Telephone [facility] Surinder De Paz PAOpalC Other [id number] [place] [address] [phone] (Wo rk) Social History Tobacco Use Types [...] at Date Recorded Female 02/21/2021 8:36 PM ASSURANCE SOURCING MANAGER documented as of this encounter Progress Notes Center, Message - 09/10/2006 12:14 PM CDT Phone Note filed by [employer] at 06/06/10 0101 Author: Message Center Service: (none) Author Type: (none) Filed: 06/06/10 0101 Note Time: 09/10/06 1214 Status: Signed Preparatory Technician: Message Center Front Line Sx Call Caller Name/Relationship:christopher Primary Raveler:strong Symptom or request?us 09/01 indicated kidney stone--what sx should she have? Is appointment scheduled & when?n Recreational Resort Manager:christopher Best call back number:[phone] c Best time to call back:today Is [...] av seq#375 CALL BACK PHONE OR CELL PHONE:[phone] cellph BEST TIME TO CALL BACK: IS [...] sent. Acknowledged by SURINDER HUA on 3:29pm RANCE SOURCING MANAGER documented in this encounter Plan of Treatment Upcoming Encounters Date Type Specialty Care Team Description 01/02/2022 Appointment Radiology PN Kian Winters, JUANCARLOS 39[address] [facility] [place], [place] N [address] (Wo rk) 01/04/2022 Appointment Oncology Kina Winters MBBS 39[address] [facility] [place], [place] N [address] (Wo rk) documented as of this encounter Visit Diagnoses Not on filedocumented in this encounter Care Teams Social Media Job Titles Relationship Specialty Start Date End Date Theresa Hardy MD PCP - General 05/22/10 03/15/21 [address] [address] T[place] [id number] documented as of this encounter
--- OUTSIDE RECORDS SUMMARY | 2021-12-03 08:34 | XMS_ITS | Encounter Summary ---
:1970 Author Organization [facility] Address [address] [address] Care Team Providers Name Role Phone Theresa Hardy MD Primary Care Provider Reason for Visit Reason Comments Other Encounter Details Date Type Department Care Team Description 04/23/[address] [facility], Message Other [address] [place] [address] Social History Tobacco Use Types [...] at Date Recorded Female 02/21/2021 8:36 PM ELECTRONIC PLOTTING SYSTEM OPERATOR documented as of this encounter Progress Notes Center, Message - 04/23/2006 10:52 AM CST Phone Note filed by [employer] at 06/05/101708 Author: [employer]pex [employer] Service: (none) Author Type: (none) Filed: 06/05/101708 Note Time: 04/23/06 1052 Status: Signed [employer] Certified Network Associate: Apex Guard Prescription Refill Please provide enough refills to last until patient's next visit. Comment:- Pharmacy Seq #:-[phone] [facility] Street or City:-[place] Clinician Name:-Antony Drug Name/Strength:-Cryselle-28 tabs. Sig: Dose/Route/Freq:-Take 1 tab daily. Quantity & Last Fill:-28 03/28/06 Created on 23Apr2006 10:52am by PETTY ARTEAGA J On 23Apr2006 3:10pm LINDSEY HELM wrote: Renewed medication per medication refill protocol. TRONIC PLOTTING SYSTEM OPERATOR documented in this encounter Plan of Treatment Upcoming Encounters Date Type Specialty Care Team Description 01/02/2022 Appointment Radiology PN Kian Winters, JUANCARLOS [address] [place] [facility] [place] N [address] (Wo rk) 01/04/2022 Appointment Oncology Kian Winters MBBS [address] [place] [facility] [place] N [address] (Wo rk) documented as of this encounter Visit Diagnoses Not on filedocumented in this encounter Care Teams Transit Man Relationship Specialty Start Date End Date Theresa Hardy MD PCP - General 05/22/10 03/15/21 [address] [place] T[place] [address] documented as of this encounter
--- OUTSIDE RECORDS SUMMARY | 2021-12-03 08:34 | XMS_ITS | Encounter Summary ---
:1970 Author Organization [facility] Address [address] [address] Care Team Providers Name Role Phone Theresa Hardy MD Primary Care Provider Reason for Visit Reason Comments Dental Conversion Legacy EDR to [place] convers ion Encounter Details Date Type Department Care Team Description 07/25/2016 Dental Conversion [facility] Grant Beatty , [facility] DDS [address] [facility] [address] [place] [address] [address] [place], [place] [phone] [address] Social History Tobacco Use Types Packs/Day Years [...] at Date Recorded Female 02/21/2021 8:36 PM LIVING ADVISOR documented as of this encounter Miscellaneous Notes Miscellaneous - Interface, In Edr Dental Conversion - 07/24/2006 12:00 AM CDT 07/24/2006: Films Scanned: 4bw and horowitz 05-30-04 documented in this encounter Plan of Treatment Upcoming Encounters Date Type Specialty Care Team Description 01/02/2022 Appointment Radiology PN Kian Winters, JUANCARLOS [address] [facility], N [address] (Wo rk) 01/04/2022 Appointment Oncology Kian Winters MBBS [address] [facility], N [address] (Wo rk) documented as of this encounter Visit Diagnoses Not on filedocumented in this encounter Care Teams Cold Molding Press Operator Relationship Specialty Start Date End Date Theresa Hardy MD PCP - General 05/22/10 03/15/21 [address] [place] T[facility] Conklin 172977 documented as of this encounter
--- OUTSIDE RECORDS SUMMARY | 2021-12-03 08:34 | XMS_ITS | Encounter Summary ---
:1970 Author Organization [facility] Address [address], [place] [address] Care Team Providers Name Role Phone Mariaelena Hardy MD Primary Care Provider Reason for Visit Reason Comments Other Encounter Details Date Type Department Care Team Description 03/23/2007 Telephone [facility] Mariaelena Juan MD Other [address] [place] [address] [place], [place] [address] (Wo rk) Social History Tobacco Use Types [...] at Date Recorded Female 02/21/2021 8:36 PM V BELT SKIVER documented as of this encounter Progress Notes Center, Message - 03/23/2007 9:37 AM CST Phone Note filed by [employer] at 06/06/10 4679 Author: Message Center Service: (none) Author Type: (none) Filed: 06/06/10 1357 Note Time: 03/23/07 0937 Status: Signed Clinical Ob: Message [place] Prescription Refill Please provide enough refills to last until patient's next visit. Comment:- Pharmacy Seq #:-[phone] [facility] Street or City:-[place] Clinician Name:-Domitila Hardy Drug Name/Strength:-Flexeril 10MG tab Sig: Dose/Route/Freq:-take one tab three times daily as needed Quantity & Last Fill:-30 06/02/06 Created on 23Mar2007 9:37am by ISRAEL VAZQUEZ On 23Mar2007 10:48am MARIAELENA HARDY wrote: Faxed. Acknowledged by MARIAELENA HARDY on 10:48am V BELT SKIVER documented in this encounter Plan of Treatment Upcoming Encounters Date Type Specialty Care Team Description 01/02/2022 Appointment Radiology PN Kian Winters MBBS [address] [facility], N [address] (Wo rk) 01/04/2022 Appointment Oncology Kian Winters MBBS [address] [facility], N [address] (Wo rk) documented as of this encounter Visit Diagnoses Not on filedocumented in this encounter Care Teams Detention Deputy Relationship Specialty Start Date End Date Mariaelena Hardy MD PCP - General 05/22/10 03/15/21 [address] [place] [address] documented as of this encounter
--- OUTSIDE RECORDS SUMMARY | 2021-12-03 08:34 | XMS_ITS | Encounter Summary ---
:1970 Author Organization [facility] Address [address], [place] [address] Care Team Providers Name Role Phone Theresa Hardy MD Primary Care Provider Encounter Details Date Type Department Care Team Description 10/20/2008 Nursing Visit [facility] Javier Suarez MD [facility] [address] [address] [place] [address] (Wo rk) Social History Tobacco [...] at Date Recorded Female 02/21/2021 8:36 PM FINE CRAFT ARTIST documented as of this encounter Plan of Treatment Upcoming Encounters Date Type Specialty Care Team Description 01/02/2022 Appointment Radiology PN Kian Winters, ENRIQUEBS [address] [facility] N [address] (Wo rk) 01/04/2022 Appointment Oncology Kian Winters, JUANCARLOS 2708 [facility], N [address] (Wo rk) documented as of this encounter Visit Diagnoses Not on filedocumented in this encounter Care Teams Certified Hyperbaric Technician Relationship Specialty Start Date End Date Theresa Hardy MD PCP - General 05/22/10 03/15/21 [address] [place] T[facility] Conklin [id number] documented as of this encounter
--- OUTSIDE RECORDS SUMMARY | 2021-12-03 08:34 | XMS_ITS | Encounter Summary ---
:1970 [facility] Address [address] [address] Care Team Providers Name Role Phone Theresa Hardy MD Primary Care Provider Encounter Details Date Type Department Care Team Description 07/03/2006 PN Conversion Only [place] [facility] Liudmila Alba, PA-C [address] [address] [place] [address] (Wo rk) Social History Tobacco [...] at Date Recorded Female 02/21/2021 8:36 PM PUBLIC POLICY COORDINATOR documented as of this encounter Plan of Treatment Upcoming Encounters Date Type Specialty Care Team Description 01/02/2022 Appointment Radiology PN Kian Winters, JUANCARLOS 7501 [facility] N [address] (Wo rk) 01/04/2022 Appointment Oncology Kian Winters [place], JUANCARLOS [address] [place] [facility] [place] N [phone] (Wo rk) documented as of this encounter Procedures Procedure Name Priority Date/Time Associated Diagnosis Comme nts WET PREP Routine 07/03/2006 1:22 PM Results f or this CDT procedure are i n the results section . documented in this encounter Results Wet Prep (07/03/2006 1:22 PM CDT) P athologist Signature Wet Prep SEE TEXT HP CONVERSION Comment: Patient: MARII JOSÉ Wet Prep @ ?Collected: ??[id number] ??[id number] Source: Vaginal ? Processed: ??[id number] ??[id number] ? V Final Report ------ Few WBCs seen Many epithelial cells seen No Trichomonas seen No yeast seen No clue cells seen @ = WET PREP Performed at ??[address] [place], [place] ??[address] Specimen (Source) Anatomical Collection Method Collection Time Re ceived Time Location / / Volume Laterality 07/03/2006 1:22 PM CDT Liudmila Beatty PA-C LAB_1 Performing Organization Address City/State/ZIP Code Phon e Number HP CONVERSION documented in this encounter Visit Diagnoses Not on filedocumented in this encounter Care Teams Dump Grounds Checker Relationship Specialty Start Date End Date Hardy, Theresa, MD PCP - General 05/22/10 03/15/21 [address] [place] T[place] [address] documented as of this encounter
--- OUTSIDE RECORDS SUMMARY | 2021-12-03 08:34 | XMS_ITS | Encounter Summary ---
:1970 Author Organization [facility] Address [address] [address] Care Team Providers Name Role Phone Mariaelena Hardy MD Primary Care Provider Reason for Visit Reason Comments Other Encounter Details Date Type Department Care Team Description 03/31/2006 Telephone [facility] Mariaelena Juan MD Other [address] [place] [address] [place], [place] [address] (Wo rk) Social History Tobacco Use Types [...] at Date Recorded Female 02/21/2021 8:36 PM SHELTER CASE MANAGER documented as of this encounter Progress Notes Center, Message - 03/31/2006 12:50 PM CST Phone Note filed by [email or web address] at 06/05/10 6151 Author: Message Center Service: (none) Author Type: (none) Filed: 06/05/10 1551 Note Time: 03/31/06 1250 Status: Signed Waste Collection Driver: Message [place] MESSAGE TO CARE TEAM NAME OF CALLER:Fifi Kasper NAME OF CLINICIAN: Dr Hardy MESSAGE:I saw Dr Hardy today and she said she would fax my three perscriptions in. [facility] [place] only received two of the three. They said they did not receive the rx for the Levsin .125 mg. Could someone refax this one for me? PHARMACY NAME: [facility] PHONE #: [phone] CALL BACK PHONE #:[phone] BEST TIME TO CALL BACK:anytime Is it OK to leave detailed message on [employer]? Created on 31Mar2006 12:50pm by ESTEBAN ANDERSON On 31Mar2006 1:58pm MARIAELENA HARDY wrote: faxed. Acknowledged by MARIAELENA HARDY on 1:58pm TER CASE MANAGER documented in this encounter Plan of Treatment Upcoming Encounters Date Type Specialty Care Team Description 01/02/2022 Appointment Radiology PN Kian Winters, JUANCARLOS 39[address] [place] [facility] [place] [address] (Wo rk) 01/04/2022 Appointment Oncology Kian Winters MBBS [address] [place] [facility] [place] N [address] (Wo rk) documented as of this encounter Visit Diagnoses Not on filedocumented in this encounter Care Teams Sec Reporting Consultant Relationship Specialty Start Date End Date Mariaelena Hardy MD PCP - General 05/22/10 03/15/21 [address] [place] T[place] [address] documented as of this encounter
--- OUTSIDE RECORDS SUMMARY | 2021-12-03 08:34 | XMS_ITS | Encounter Summary ---
:1970 Author Organization [facility] Address [address] [address] Care Team Providers Name Role Phone Mariaelena Hardy MD Primary Care Provider Reason for Visit Reason Comments Other Encounter Details Date Type Department Care Team Description 03/03/2006 Telephone [facility], Message Other [address] [place] [address] Social History Tobacco Use Types [...] at Date Recorded Female 02/21/2021 8:36 PM MANUFACTURING PROCESS TECHNICIAN documented as of this encounter Progress Notes Viji Hayes - 03/03/2006 8:58 AM CST Phone Note filed by Viji Hayes RN at 06/05/10 4017 Author: Viji Hayes RN Service: (none) Author Type: Registered Nurse Filed: 06/05/107 Note Time: 03/03/0658 Status: Signed Feed In Worker: Viji Hayes, RN (Registered Nurse) Care Without Wait Appt. Request: Primary Spring Machine Operator:Dr. Hardy Caller name/relationship:Fifi Appt. reason/specific request:She has [...] the day) Phone # pt./caller over next hr.:[phone] OK to leave detailed messsage on voicemail? [...] 1:00 Acknowledged by JUSTINA DURON on 9:50am FACTURING PROCESS TECHNICIAN documented in this encounter Plan of Treatment Upcoming Encounters Date Type Specialty Care Team Description 01/02/2022 Appointment Radiology PN Kian Winters MBBS 39[address] [facility] [place] N [address] (Wo rk) 01/04/2022 Appointment Oncology Kian Winters MBBS 3931 [facility], N [address] (Wo rk) documented as of this encounter Visit Diagnoses Not on filedocumented in this encounter Care Teams Manager Strategic Alliances Relationship Specialty Start Date End Date Mariaelena Hardy MD PCP - General 05/22/10 03/15/21 [address] [place] TIRSO Conklin [id number] documented as of this encounter
--- OUTSIDE RECORDS SUMMARY | 2021-12-03 08:34 | XMS_ITS | Encounter Summary ---
:[address] [facility] Address [address] [address] Care Team Providers Name Role Phone Theresa Hardy MD Primary Care Provider Encounter Details Date Type Department Care Team Description 08/19/2006 PN Conversion Only [place] [facility] CON[facility] Liudmila Alba, PA-C [address] [address] [place] [address] (Wo rk) Social History Tobacco [...] at Date Recorded Female 02/21/2021 8:36 PM CONTINUITY DIRECTOR documented as of this encounter Plan of Treatment Upcoming Encounters Date Type Specialty Care Team Description 01/02/2022 Appointment Radiology PN Kian Winters, JUANCARLOS 2145 [facility] N [address] (Wo rk) 01/04/2022 Appointment Oncology Kian Winters Shel[place], ENRIQUEBS 8441 [facility] N [address] (Wo rk) documented as of this encounter [...] Complete Blood Count-W/Diff (08/19/2006 3:10 PM CDT) [facility] Method Time Signature White Blood Cell 6.9 [...] - HP CONVERSION Hemoglobin Conc 36.5 gm/dL Maguayo RDW 11.8 11.0 - HP CONVERSION 15.0 [...] Liudmila Beatty WILEY LAB_1 Performing Organization Address [facility] Phon e Number HP CONVERSION ALT (SGPT) (08/19/2006 3:10 PM CDT) [facility] Method Time Signature Alanine 23 4 - 55 HP CONVERSION Aminotransferase U/L Specimen (Source) Anatomical Collection Method Collection Time Re ceived Time Location / / Volume Laterality 08/19/2006 3:10 PM CDT Liudmila Beatty JENNIFEROpalLeonides LAB_1 Performing Organization Address [facility] Phon e Number HP CONVERSION AST (08/19/2006 3:10 PM CDT) [facility] Method Time Signature Aspartate 21 0 - 45 HP CONVERSION Aminotransferase U/L Specimen (Source) Anatomical Collection Method Collection Time Re ceived Time Location / / Volume Laterality 08/19/2006 3:10 PM CDT Liudmila Beatty WILEY LAB_1 Performing Organization Address [facility] Phon e Number HP CONVERSION Bilirubin, Total (08/19/2006 3:10 PM CDT) P athologist Signature Bilirubin Total 1.1 0.2 - 1.2 HP CONVERSION mg/dL Specimen (Source) Anatomical Collection Method Collection Time Re ceived Time Location / / Volume Laterality 08/19/2006 3:10 PM CDT Liudmila Beatty JENNIFEROpalLeonides LAB_1 Performing Organization Address [facility] Phon e Number HP CONVERSION Urinalysis Routine(Micro If Pos) (08/19/2006 3:10 PM CDT) [facility] Method Time Signature Turbidity Clear No normal [...] Specific 1.020 1.005 - 25 HP CONVERSION Nicolaus Specimen (Source) Anatomical Collection Method Collection Time Re ceived Time Location / / Volume Laterality 08/19/2006 3:10 PM CDT Liudmila Beatty PA-C LAB_1 Performing Organization Address City/State/ZIP Code Phon e Number HP CONVERSION documented in this encounter Visit Diagnoses Not on filedocumented in this encounter Care Teams Harvesting Contractor Relationship Specialty Start Date End Date Theresa Hardy MD PCP - General 05/22/10 03/15/[address] [place] [address] documented as of this encounter
--- OUTSIDE RECORDS SUMMARY | 2021-12-03 08:34 | XMS_ITS | Encounter Summary ---
:1970 Author Organization [facility] Address [address] [address] Care Team Providers Name Role Phone Theresa Hardy MD Primary Care Provider Encounter Details Date Type Department Care Team Description 06/19/2010 PN Conversion Only CONVERSION CONVERSION Opal Bojorquez MD [address] [place] [address] (Wo rk) Social History Tobacco [...] at Date Recorded Female 02/21/2021 8:36 PM PROPERTY ACCOUNTANT documented as of this encounter Plan of Treatment Upcoming Encounters Date Type Specialty Care Team Description 01/02/2022 Appointment Radiology PN Kian Winters MBBS [address] [facility] [place] N [address] (Wo rk) 01/04/2022 Appointment Oncology Kian Winters MBBS 8[address] [facility], N [address] (Wo rk) documented as of this encounter Visit Diagnoses Not on filedocumented in this encounter Care Teams Precision Machinist Relationship Specialty Start Date End Date Theresa Hardy MD PCP - General 05/22/10 03/15/21 [address] [place] TIRSO Conklin 237927 documented as of this encounter
--- OUTSIDE RECORDS SUMMARY | 2021-12-03 08:34 | XMS_ITS | Encounter Summary ---
:1970 Author Organization [facility] Address [address] [address] Care Team Providers Name Role Phone Theresa Hardy MD Primary Care Provider Reason for Visit Reason Comments Other Encounter Details Date Type Department Care Team Description 09/11/2006 Telephone [facility] Surinder De Paz PAOpalC Other [address] [place] [address] [phone] (Wo rk) Social History Tobacco Use Types [...] Date Recorded Female 02/21/2021 8:36 PM PROPERTY INSURANCE CLAIMS EXAMINER documented as of this encounter Progress Notes Center, Message - 09/11/2006 8:05 AM CDT Phone Note filed by [email or web address] DBA eG[employer] at 06/06/10 0104 Author: Message Center Service: (none) Author Type: (none) Filed: 06/06/10 0104 Note Time: 09/11/06804 Status: Signed Savings Teller: Message [place] Pt presents today to ask about CT results. Please call her with results when they are in [phone] Created on 11Sep2006 8:05am by HOSSEIN SU [...] know. Acknowledged by SURINDER HUA on 9:15am ERTY INSURANCE CLAIMS EXAMINER documented in this encounter Plan of Treatment Upcoming Encounters Date Type Specialty Care Team Description 01/02/2022 Appointment Radiology PN Kian Winters MBBS 3931 [facility], N [address] (Wo rk) 01/04/2022 Appointment Oncology Kian Winters MBBS 39[address] [facility], N [address] (Wo rk) documented as of this encounter Visit Diagnoses Not on filedocumented in this encounter Care Teams Machinist Wood Relationship Specialty Start Date End Date Theresa Hardy MD PCP - General 05/22/10 03/15/21 [address] [place] T[place] Conklin [address] documented as of this encounter
--- OUTSIDE RECORDS SUMMARY | 2021-12-03 08:34 | XMS_ITS | Encounter Summary ---
:1970 Author Organization [facility] Address [address] [address] Care Team Providers Name Role Phone Theresa Hardy MD Primary Care Provider Reason for Visit Reason Comments Other Encounter Details Date Type Department Care Team Description 03/28/2006 Telephone [facility], Message Other [address] [place] [address] Social History Tobacco Use Types [...] at Date Recorded Female 02/21/2021 8:36 PM SKIN PASS OPERATOR documented as of this encounter [facility], Message - 03/28/2006 9:30 AM CST Phone Note filed by [employer] at 06/05/10 4327 Author: [employer] Service: (none) Author Type: (none) Filed: 06/05/10 1542 Note Time: 03/28/06929 Status: Signed Aids Social Worker: [employer] Prescription Refill Please provide enough refills to last until patient's next visit. Comment:-Appt Mar 31 Pharmacy Seq #:-[phone] [facility] Street or City:-[place] Clinician Name:-Domitila Hardy Drug Name/Strength:-Cryselle-28 tabs Sig: Dose/Route/Freq:-take one tab daily Quantity & Last Fill:-28 02/28/06 Created on 28Mar2006 9:30am by ISRAEL VAZQUEZ On 28Mar2006 11:05am LINDSEY HELM wrote: Renewed medication per medication refill protocol. PASS OPERATOR documented in this encounter Plan of Treatment Upcoming Encounters Date Type Specialty Care Team Description 01/02/2022 Appointment Radiology PN Kian Winters MBBS [address] [facility] [place] [address] [address] (Wo rk) 01/04/2022 Appointment Oncology Kian Winters [facility] [address] [place] [facility] [place] [address] (Wo rk) documented as of this encounter Visit Diagnoses Not on filedocumented in this encounter Care Teams Principal Developer Relationship Specialty Start Date End Date Theresa Hardy MD PCP - General 05/22/10 03/15/21 [address] [place] [address] documented as of this encounter
--- OUTSIDE RECORDS SUMMARY | 2021-12-03 08:34 | XMS_ITS | Encounter Summary ---
:1970 Author Organization [facility] Address [address] [address] Care Team Providers Name Role Phone Theresa Hardy MD Primary Care Provider Reason for Visit Reason Comments Other Encounter Details Date Type Department Care Team Description 12/26/2006 Telephone [facility] chino Gtz Melissa J Other [address] [place] [address] Social History Tobacco Use Types [...] Recorded Female 02/21/2021 8:36 PM CLINICAL APPLICATION CONSULTANT documented as of this encounter [facility], Message - 12/26/2006 11:04 AM CST Phone Note filed by [employer] at 06/06/10820 Author: Message Center Service: (none) Author Type: (none) Filed: 06/06/10820 Note Time: 12/26/06 110 Status: Signed Grain Handler: Message Center Medication Issue/Refill Caller Name/Relationship:Fifi Primary Sports Book Writer:Antony Comment/Symptom:pt under new insurance and now needs to use mail order requesting new script to be mailed to her home address Pharmacy Name & Phone #: Pharmacy Street or City: Drug Name: control lo-ovral Strength:28tabs Dose/Route/Freq:#3months Family Law Attorney:Fifi Best call back number:[phone] Is it OK to leave a confidential message on this voicemail?yes Created on 26Dec2006 11:04am by MISA POWELL On 29Dec2006 8:41am THERESA HARDY wrote: Rx printed and signed and in my outbox.Thanks Acknowledged by THERESA HARDY on 8:41am Acknowledged by PADMINI ISABEL on 8:51am On 29Dec2006 9:06am MELISSA SAN wrote: mailed to pt Acknowledged by MELISSA SAN on 9:06am ICAL APPLICATION CONSULTANT documented in this encounter Plan of Treatment Upcoming Encounters Date Type Specialty Care Team Description 01/02/2022 Appointment Radiology PN Kian Winters, JUANCARLOS [address] [facility] [place] N [address] (Wo rk) 01/04/2022 Appointment Oncology Kian Winters MBBS [address] [facility] N [address]166 (Wo rk) documented as of this encounter Visit Diagnoses Not on filedocumented in this encounter Care Teams Acting Section Chief Relationship Specialty Start Date End Date Theresa Hardy MD PCP - General 05/22/10 03/15/21 [address] [place] [address] documented as of this encounter
--- OUTSIDE RECORDS SUMMARY | 2021-12-03 08:34 | XMS_ITS | Encounter Summary ---
:1970 [facility] Address [address] [address] Care Team Providers Name Role Phone Theresa Hardy MD Primary Care Provider Reason for Visit Reason Comments Other Encounter Details Date Type Department Care Team Description 03/19/2006 Telephone [facility] Geovanny Alamo MD Other [address] [place] [address] [place], [place] [address] (Wo rk) Social History Tobacco Use Types [...] at Date Recorded Female 02/21/2021 8:36 PM CANDLE WICKER documented as of this encounter [facility], Message - 03/19/2006 10:08 AM CST Phone Note filed by [employer] at 06/05/10 3157 Author: Message Center Service: (none) Author Type: (none) Filed: 06/05/10 1513 Note Time: 03/19/06 1008 Status: Signed Medical Coder: Nate Woodstock Prescription Refill Please provide enough refills to last until patient's next visit. Comment:- Pharmacy Seq #:-[phone] [facility] Street or City:-[place] Clinician Name:-Domitila Hardy Drug Name/Strength:-Topamax 100MG Sig: Dose/Route/Freq:-take one tab twice daily Quantity & Last Fill:-60 02/17/06 Created on 19Mar2006 10:08am by ISRAEL VAZQUEZ On 19Mar2006 10:36am GEOVANNY MCCURDY wrote: Ok. Acknowledged by GEOVANNY MCCURDY on 10:36am LE WICKER documented in this encounter Plan of Treatment Upcoming Encounters Date Type Specialty Care Team Description 01/02/2022 Appointment Radiology PN Kian Winters MBBS 39[address] [facility] [address] [address] (Wo rk) 01/04/2022 Appointment Oncology Kian Winters MBBS 39[address] [facility], [address] [address] (Wo rk) documented as of this encounter Visit Diagnoses Not on filedocumented in this encounter Care Teams Wax Machine Operator Relationship Specialty Start Date End Date Theresa Hardy MD PCP - General 05/22/10 03/15/21 [address] [place] [address] documented as of this encounter
--- OUTSIDE RECORDS SUMMARY | 2021-12-03 08:34 | XMS_ITS | Encounter Summary ---
:1970 Author [facility] Address [address], [place] [address] Care Team Providers Name Role Phone Theresa Hardy MD Primary Care Provider Encounter Details Date Type Department Care Team Description 10/19/2008 PN Conversion Only [facility] [address] [place] [address] Social History Tobacco Use Types Packs/Day Years [...] at Date Recorded Female 02/21/2021 8:36 PM C D STILL OPERATOR documented as of this encounter Plan of Treatment Upcoming Encounters Date Type Specialty Care Team Description 01/02/2022 Appointment Radiology PN Kian Winters MBBS 3931 [facility] [place] N [address]846 (Wo dawson) 01/04/2022 Appointment Oncology Kian Winters MBBS 39[address] [facility] [place] N [address] (Wo rk) documented as of this encounter Visit Diagnoses Not on filedocumented in this encounter Care Teams Quality Control Relationship Specialty Start Date End Date Theresa Hardy MD PCP - General 05/22/10 03/15/[address] [place] [address] documented as of this encounter
--- OUTSIDE RECORDS SUMMARY | 2021-12-03 08:34 | XMS_ITS | Encounter Summary ---
:1970 [facility] Address [address] [address] Care Team Providers Name Role Phone Theresa Hardy MD Primary Care Provider Encounter Details Date Type Department Care Team Description 03/20/2006 Office Visit [facility] Erik Winters [address] [place] [address] Social History Tobacco Use Types [...] at Date Recorded Female 02/21/2021 8:36 PM DELINQUENCY PREVENTION SOCIAL WORKER documented as of this encounter Plan of Treatment Upcoming Encounters Date Type Specialty Care Team Description 01/02/2022 Appointment Radiology PN Kian Winters MBBS [address] [facility] [place] N [address] (Wo rk) 01/04/2022 Appointment Oncology Kian Winters MBBS [address] [facility] [place] [address] [address] (Wo rk) documented as of this encounter Visit Diagnoses Not on filedocumented in this encounter Care Teams Patient Resource Coordinator Relationship Specialty Start Date End Date Theresa Hardy MD PCP - General 05/22/10 03/15/21 [address] [place] [address] documented as of this encounter
--- OUTSIDE RECORDS SUMMARY | 2021-12-03 08:34 | XMS_ITS | Encounter Summary ---
:1970 Author [facility] Address [address] [address] Care Team Providers Name Role Phone Theresa Hardy MD Primary Care Provider Encounter Details Date Type Department Care Team Description 09/01/2006 PN Conversion Only [facility] [address] [place] [address] Social History Tobacco Use Types Packs/Day Years [...] Date Recorded Female 02/21/2021 8:36 PM DRUM CARRIER documented as of this encounter Plan of Treatment Upcoming Encounters Date Type Specialty Care Team Description 01/02/2022 Appointment Radiology PN Kian Winters MBBS 39[address] [facility] [place] N [address]366 (Wo dawson) 01/04/2022 Appointment Oncology Kian Winters MBBS [address] [facility] [place] N [address] (Wo rk) documented as of this encounter [...] mm right intrarenal calculus, but no obstruction. 494013/dkd Dictating KIRILL GASTELUM T RADIOLOGIST Narrative 09/01/2006 [...] mm right intrarenal calculus, but no obstruction. 581401/dkd Dictating KIRILL GASTELUM RADIOLOGIST Liudmila Beatty PA-C RAD US documented in this encounter Visit Diagnoses Not on filedocumented in this encounter Care Teams Vegetable Cutter Relationship Specialty Start Date End Date Theresa Hardy MD PCP - General 05/22/10 03/15/21 [address] [place] [address] documented as of this encounter
--- OUTSIDE RECORDS SUMMARY | 2021-12-03 08:34 | XMS_ITS | Encounter Summary ---
:1970 Author [facility] Address [address] [address] Care Team Providers Name Role Phone Theresa Hardy MD Primary Care Provider Encounter Details Date Type Department Care Team Description 11/20/2005 Nursing Visit [facility] [place] [address] [facility] [address] [place], [place] [address] [place] [address] [phone] Social History Tobacco Use Types Packs/Day [...] at Date Recorded Female 02/21/2021 8:36 PM VAT PACKER documented as of this encounter Plan of Treatment Upcoming Encounters Date Type Specialty Care Team Description 01/02/2022 Appointment Radiology PN Kian Winters, JUANCARLOS [address] [facility] [place] [address] [address] (Wo rk) 01/04/2022 Appointment Oncology Kian Winters MBBS [address] [facility] [address] [place] N [address]136 (Wo rk) documented as of this encounter Visit Diagnoses Not on filedocumented in this encounter Care Teams Heating And Air Conditioning Mechanic Relationship Specialty Start Date End Date Theresa Hardy MD PCP - General 05/22/10 03/15/21 [address] [place] [address] documented as of this encounter
--- OUTSIDE RECORDS SUMMARY | 2021-12-03 08:34 | XMS_ITS | Encounter Summary ---
:[address] [facility] Address [address], [place] [address] Care Team Providers Name Role Phone Mariaelena Hardy MD Primary Care Provider Encounter Details Date Type Department Care Team Description 03/04/2006 Office Visit [facility] [place] [address] [place] [address] [place], [place] [address] (Wo rk) Social History Tobacco Use Types [...] at Date Recorded Female 02/21/2021 8:36 PM ACID PURIFIER documented as of this encounter Last Filed Vital Signs Vital Sign Reading Time Taken Comments Blood Pressure 132/68 03/04/2006 12:56 PM ACID PURIFIER Pulse 90 03/04/2006 12:56 PM C: Radial Re gular ACID PURIFIER Temperature - - Respiratory Rate 24 03/04/2006 12:56 PM ACID PURIFIER Oxygen Saturation - - Inhaled Oxygen - - Concentration Weight 65.8 kg (144 lb 15.9 03/04/2006 12:56 PM C: 65.8 kg oz) ACID PURIFIER Height - - Body Mass Index 29.29 03/18/2005 9:04 AM ACID PURIFIER documented in this encounter Progress Notes Mariaelena Hardy MD - 03/04/2006 12:01 AM CST Progress Notes signed by Mariaelena Hardy MD at 03/24/06 9621 Author: Mariaelena Hardy MD Service: (none) Author Type: Physician Filed: 06/08/10 5528 Note Time: 03/04/06 0001 Status: Signed Pearl Hand: Mariaelena Hardy MD (Physician) NAME: MARII JOSÉ MR#: [id number] ACCT: [id number] VISIT: [id number] DICTATING CLINICIAN: MARIAELENA HARDY MD JOB: [id number] LOC: 502 CLINIC PROGRESS NOTE DATE OF [...] is not improved, which the patient agreed. SS:[id number] C: 03/07/06 09:36 DOCUMENT: [id number] PURIFIER documented in this encounter Plan of Treatment Upcoming Encounters Date Type Specialty Care Team Description 01/02/2022 Appointment Radiology PN Kian Winters MBBS 1571 [facility] [address] (Wo rk) 01/04/2022 Appointment Oncology Kian Winters MBBS 7[address] [facility] [place] [address] [address] (Wo rk) documented as of this encounter Visit Diagnoses Not on filedocumented in this encounter Care Teams Check Examiner Relationship Specialty Start Date End Date Mariaelena Hardy MD PCP - General 05/22/10 03/15/21 [address] [place] TIRSO Conklin [id number] documented as of this encounter
--- OUTSIDE RECORDS SUMMARY | 2021-12-03 08:34 | XMS_ITS | Encounter Summary ---
:1970 Author Organization [facility] Address [address] [address] Care Team Providers Name Role Phone Mariaelena Hardy MD Primary Care Provider Reason for Visit Reason Comments Other Encounter Details Date Type Department Care Team Description 06/02/2006 Telephone [facility] Mariaelena Juan MD Other [address] [place] [address] [place], [place] [address] (Wo rk) Social History Tobacco Use Types [...] at Date Recorded Female 02/21/2021 8:36 PM FIRST DYER documented as of this encounter [facility], Message - 06/02/2006 1:45 PM CDT Phone Note filed by [employer] at 06/05/10 4728 Author: Message Center Service: (none) Author Type: (none) Filed: 06/05/10 1917 Note Time: 06/02/06 1345 Status: Signed Boiler Plant Operator: Message [facility] Prescription Refill Please provide enough refills to last until patient's next visit. Comment:- Pharmacy Seq #:-[phone] [facility] Street or City:-[place] Clinician Name:-Domitila Hardy Drug Name/Strength:-Cyclobenzapr 10MG tab Sig: Dose/Route/Freq:-take one tab three times daily as needed Quantity & Last Fill:-30 03/04/06 Created on 02Jun2006 1:45pm by ISRAEL VAZQUEZ On 02Jun2006 2:13pm MARIAELENA HARDY wrote: faxed. Acknowledged by MARIAELENA HARDY on 2:13pm T DYER documented in this encounter Plan of Treatment Upcoming Encounters Date Type Specialty Care Team Description 01/02/2022 Appointment Radiology PN Kian Winters MBBS [address] [place] [address] (Wo rk) 01/04/2022 Appointment Oncology Kian Winters MBBS [address] [place] [address] (Wo rk) documented as of this encounter Visit Diagnoses Not on filedocumented in this encounter Care Teams Head Of Quality Relationship Specialty Start Date End Date Mariaelena Hardy MD PCP - General 05/22/10 03/15/21 [address] [place] [address] documented as of this encounter
--- OUTSIDE RECORDS SUMMARY | 2021-12-03 08:34 | XMS_ITS | Encounter Summary ---
:1970 Author [facility] Address [address], [place] [address] Care Team Providers Name Role Phone Theresa Hardy MD Primary Care Provider Encounter Details Date Type Department Care Team Description 03/10/2006 Office Visit [facility] Erik Winters [address] [place] [address] Social History Tobacco Use Types [...] Date Recorded Female 02/21/2021 8:36 PM DATA SOFTWARE ENGINEER documented as of this encounter Plan of Treatment Upcoming Encounters Date Type Specialty Care Team Description 01/02/2022 Appointment Radiology PN Kian Winters MBBS [address] [facility] [place] [address] [address] (Wo rk) 01/04/2022 Appointment Oncology Kian Winters MBBS [address] [facility] [place] N [address] (Wo rk) documented as of this encounter Visit Diagnoses Not on filedocumented in this encounter Care Teams Pressure Tester Relationship Specialty Start Date End Date Theresa Hardy MD PCP - General 05/22/10 03/15/21 [address] [place] T[place] Conklin [address] documented as of this encounter
--- OUTSIDE RECORDS SUMMARY | 2021-12-03 08:34 | XMS_ITS | Encounter Summary ---
:1970 Author Organization [facility] Address [address] [address] Care Team Providers Name Role Phone Theresa Hardy MD Primary Care Provider Encounter Details Date Type Department Care Team Description 08/19/2006 Office Visit [facility] Liudmila De Paz, PA-C [address] [place] [address] [phone] (Wo rk) Social History Tobacco Use Types [...] Date Recorded Female 02/21/2021 8:36 PM CREDIT ADMINISTRATION MANAGER documented as of this encounter Last [...] Body Mass Index 30.5 03/31/2006 8:58 AM CREDIT ADMINISTRATION MANAGER documented in this encounter Progress Notes Liudmila Beatty PA-C - 08/19/2006 12:01 AM CDT Progress Notes signed by Liudmila Beatty PA-C at 08/25/06 1450 Author: Liudmila Beatty PA-C Service: (none) Author Type: Physician Ground Nuclear Weapons Assembly Officer Filed: 06/08/102019 Note Time: 08/19/06 0001 Status: Signed Shift Production Supervisor: Liudmila Beatty PA-C (Physician Ground Nuclear Weapons Assembly Officer) NAME: MARII JOSÉ MR#: [id number] ACCT: [id number] VISIT: [id number] DICTATING CLINICIAN: MASHA GAMBLE JOB: [id number] LOC: 502 CLINIC PROGRESS NOTE DATE OF [...] normal and if she still has pain. AMS:[id number] C: 08/20/06 16:18 DOCUMENT: [id number] documented in this encounter Plan of Treatment Upcoming Encounters Date Type Specialty Care Team Description 01/02/2022 Appointment Radiology PN Kian Winters MBBS 39[address] [facility] [place] [address] (Wo rk) 01/04/2022 Appointment Oncology Kian Winters MBBS [address] [facility] [place] N [address] (Wo rk) documented as of this encounter Visit Diagnoses Not on filedocumented in this encounter Care Teams Market Development Executive Relationship Specialty Start Date End Date Theresa Hardy MD PCP - General 05/22/10 03/15/21 [address] [place] TIRSO Conklin [address] documented as of this encounter
--- OUTSIDE RECORDS SUMMARY | 2021-12-03 08:34 | XMS_ITS | Encounter Summary ---
:1970 [facility] Address [address] [place] [address] Care Team Providers Name Role Phone Theresa Hardy MD Primary Care Provider Encounter Details Date Type Department Care Team Description 11/11/2009 Nursing Visit [facility] Tommy Del Castillo MD [address] [place] [address] Social History Tobacco Use Types [...] at Date Recorded Female 02/21/2021 8:36 PM INTEGRATED CIRCUIT IC LAYOUT DESIGNER documented as of this encounter Plan of Treatment Upcoming Encounters Date Type Specialty Care Team Description 01/02/2022 Appointment Radiology PN Kian Winters MBBS 3931 [facility] [place] N [address] (Wo rk) 01/04/2022 Appointment Oncology Kian Winters MBBS 39[address] [facility] [place] [address] [address] (Wo rk) documented as of this encounter Visit Diagnoses Not on filedocumented in this encounter Care Teams Inspector Crystal Relationship Specialty Start Date End Date Theresa Hardy MD PCP - General 05/22/10 03/15/21 [address] [place] TIR[place] Conklin [address] documented as of this encounter
--- OUTSIDE RECORDS SUMMARY | 2021-12-03 08:34 | XMS_ITS | Encounter Summary ---
:1970 Author [facility] Address [address], [place] [address] Care Team Providers Name Role Phone Theresa Hardy MD Primary Care Provider Encounter Details Date Type Department Care Team Description 09/11/2006 PN Conversion Only [facility] [address] [place] [address] Social History Tobacco Use Types Packs/Day Years [...] at Date Recorded Female 02/21/2021 8:36 PM GLOBAL PRODUCT MANAGER documented as of this encounter Plan of Treatment Upcoming Encounters Date Type Specialty Care Team Description 01/02/2022 Appointment Radiology PN Kian Winters MBBS 39[address] [facility] [place] N [address] (Wo dawson) 01/04/2022 Appointment Oncology Kian Winters MBBS 39[address] [facility] [place] N [address] (Wo rk) documented as of this encounter [...] enal calculi with no other abnormalities identified. [id number]/cs Dictating MARQUIS ZAMBRANO RADIOLOGIST Procedure Note Marquis [...] al calculi with no other abnormalities identified. 076195/cs Dictating MARQUIS ZAMBRANO RADIOLOGIST Liudmila M Strong [...] enal calculi with no other abnormalities identified. 795603/cs Dictating MARQUIS ZAMBRANO RADIOLOGIST Procedure Note Marquis [...] al calculi with no other abnormalities identified. 706190/cs Dictating MARQUIS ZAMBRANO RADIOLOGIST Liudmila Beatty PA-C RAD CT documented in this encounter Visit Diagnoses Not on filedocumented in this encounter Care Teams Hadoop Analyst Relationship Specialty Start Date End Date Theresa Hardy MD PCP - General 05/22/10 03/15/21 [address] [place] T[place] Conklin [address] documented as of this encounter
--- OUTSIDE RECORDS SUMMARY | 2021-12-03 08:34 | XMS_ITS | Encounter Summary ---
:1970 Author Organization [facility] Address [address] [address] Care Team Providers Name Role Phone Theresa Hardy MD Primary Care Provider Encounter Details Date Type Department Care Team Description 08/20/2006 PN Conversion Only [facility] Liudmila Alba, PA-C [address] [address] [place] [address] (Wo rk) Social History Tobacco [...] at Date Recorded Female 02/21/2021 8:36 PM REGIONAL PLANNER documented as of this encounter Plan of Treatment Upcoming Encounters Date Type Specialty Care Team Description 01/02/2022 Appointment Radiology PN Kian Winters, JUANCARLOS [address] [facility] [address] [address] (Wo rk) 01/04/2022 Appointment Oncology Kian Winters [place], JUANCARLOS 0265 [facility], [address] [address] (Wo rk) documented as of this encounter [...] NEGATIVE HP CONVERSION Stl Comment: Performed at [facility] [employer] [address] [place] [phone] Specimen (Source) Anatomical Collection Method Collection Time Re ceived Time Location / / Volume Laterality 08/20/2006 4:00 PM CDT Liudmila Beatty PA-C LAB_1 Performing Organization Address City/State/ZIP Code Phon e Number HP CONVERSION documented in this encounter Visit Diagnoses Not on filedocumented in this encounter Care Teams Shutdown Coordinator Relationship Specialty Start Date End Date Theresa Hardy MD PCP - General 05/22/10 03/15/21 [address] [place] TIRSO Conklin [id number] documented as of this encounter
--- OUTSIDE RECORDS SUMMARY | 2021-12-03 08:35 | XMS_ITS | Encounter Summary ---
:1970 [facility] Address [address] [address] Care Team Providers Name Role Phone Theresa Hardy MD Primary Care Provider Encounter Details Date Type Department Care Team Description 01/24/2004 [facility] [address] [address] [place] [address] [phone] Social History Tobacco Use Types Packs/Day Years [...] at Date Recorded Female 02/21/2021 8:36 PM EARTH MOVING MACHINE OPERATOR documented as of this encounter Plan of Treatment Upcoming Encounters Date Type Specialty Care Team Description 01/02/2022 Appointment Radiology PN Kian Winters, MBBS [address] [facility] N [address] (Wo rk) 01/04/2022 Appointment Oncology Kian Winters MBBS [address] [facility], N 025806 (Wo rk) documented as of this encounter Visit Diagnoses Not on filedocumented in this encounter Care Teams Shrinking Machine Operator Relationship Specialty Start Date End Date Theresa Hardy MD PCP - General 05/22/10 03/15/21 [address] [place] TIRSO Conklin 124257 documented as of this encounter
--- OUTSIDE RECORDS SUMMARY | 2021-12-03 08:35 | XMS_ITS | Encounter Summary ---
:1970 Author Organization [facility] Address [address] [address] Care Team Providers Name Role Phone Theresa Hardy MD Primary Care Provider Reason for Visit Reason Comments Other Encounter Details Date Type Department Care Team Description 03/27/2004 Telephone [facility] Viji Bethea [address] [place] [address] Social History Tobacco Use Types [...] at Date Recorded Female 02/21/2021 8:36 PM BAKER PAINT documented as of this encounter Progress Notes Viji Hayes - 03/27/2004 11:39 AM CST Phone Note filed by Viji Hayes RN at 06/04/10 6050 Author: Viji Hayes RN Service: (none) Author Type: Registered Nurse Filed: 06/04/10 2572 Note Time: 03/27/04 1139 Status: Signed Clothes Model: Viji Hayes, RN (Registered Nurse) Fifi fell [...] Winters MBBS [address] [facility] [place] N [address] (Wo rk) 01/04/2022 Appointment Oncology Kian Winters MBBS [address] [facility] [place] [address] (Wo rk) documented as of this encounter Visit Diagnoses Not on filedocumented in this encounter Care Teams Associate Professor Of Biostatistics Relationship Specialty Start Date End Date Theresa Hardy MD PCP - General 05/22/10 03/15/21 [address] [place] T[facility] Conklin [address] documented as of this encounter
--- OUTSIDE RECORDS SUMMARY | 2021-12-03 08:35 | XMS_ITS | Encounter Summary ---
:1970 Author Organization [facility] Address [address] [address] Care Team Providers Name Role Phone Theresa Hardy MD Primary Care Provider Encounter Details Date Type Department Care Team Description 10/08/2004 PN Conversion Only [facility] [address] [place] [address] Social History Tobacco Use Types Packs/Day Years [...] at Date Recorded Female 02/21/2021 8:36 PM PATTERN CUTTER documented as of this encounter Plan of Treatment Upcoming Encounters Date Type Specialty Care Team Description 01/02/2022 Appointment Radiology PN Kian Winters MBBS [address] [facility] [place] N 803466 (Wo dawson) 01/04/2022 Appointment Oncology Kian Winters MBBS [address] [facility] [place] N [address] (Wo rk) documented as of this encounter [...] GI with delaney l small bowel follow-through. 829103/pb Dictating MARQUIS ZAMBRANO RADIOLOGIST Procedure Note Marquis [...] upper GI with normal small bowel follow-through. 078615/pb Dictating MARQUIS ZAMBRANO RADIOLOGIST Laureen Bojorquez MD RAD [place] documented in this encounter Visit Diagnoses Not on filedocumented in this encounter Care Teams Electrical Contractor Relationship Specialty Start Date End Date Theresa Hardy MD PCP - General 05/22/10 03/15/21 [address] [place] T[facility] Conklin [id number] documented as of this encounter
--- OUTSIDE RECORDS SUMMARY | 2021-12-03 08:35 | XMS_ITS | Encounter Summary ---
:1970 [facility] Address [address], [place] [address] Care Team Providers Name Role Phone Theresa Hardy MD Primary Care Provider Encounter Details Date Type Department Care Team Description 01/04/2005 [place] [address] [facility] [address] [place] [address] [place], [place] [phone] (Wo rk) Social History Tobacco Use Types [...] at Date Recorded Female 02/21/2021 8:36 PM FINANCE MANAGER documented as of this encounter Plan of Treatment Upcoming Encounters Date Type Specialty Care Team Description 01/02/2022 Appointment Radiology PN Kian Winters MBBS [address] [facility] [place] [address] [address] (Wo rk) 01/04/2022 Appointment Oncology Kian Winters Shel[place], JUANCARLOS [address] [facility], N [address] (Wo rk) documented as of this encounter Procedures Procedure Name Priority Date/Time Associated Comments Diagnosis ELECTROLYTES (NA, K, Routine 01/04/2005 12:32 Res ults for this CL, BICARB) PM FINANCE MANAGER procedure are i n the results section. CREATININE / GFR Routine 01/04/2005 12:32 Results for this PM FINANCE MANAGER procedure are i n the results section. COMPLETE BLOOD Routine 01/04/2005 12:32 Results f or this COUNT-W/DIFF PM FINANCE MANAGER procedure are i n the results section. BUN Routine 01/04/2005 12:32 Results for this PM FINANCE MANAGER procedure are i n the results section. documented in this encounter Results Complete Blood Count-W/Diff (01/04/2005 12:32 PM FINANCE MANAGER) [facility] gist Method Time Signature White Blood [...] - HP CONVERSION Hemoglobin Conc 36.5 gm/dL [place] RDW 11.8 11.0 - HP CONVERSION 15.0 [...] / / Volume Laterality 01/04/2005 12:32 PM FINANCE MANAGER Ander Thurman Robyn [facility]O LAB_1 Performing Organization Address City/[facility]/ZIP Code Phon e Number HP CONVERSION BUN (01/04/2005 12:32 PM FINANCE MANAGER) athologist Signature Blood Urea 9 5 - 26 HP CONVERSION Nitrogen mg/dL Specimen (Source) Anatomical Collection Method Collection Time Re ceived Time Location / / Volume Laterality 01/04/2005 12:32 PM FINANCE MANAGER Ander Thurman Robyn [facility]_1 Performing Organization Address City/[facility] Code Phon e Number HP CONVERSION Creatinine / GFR (01/04/2005 12:32 PM FINANCE MANAGER) athologist Signature Creatinine 1.0 0.5 - 1.5 HP CONVERSION Serum mg/dL Specimen (Source) Anatomical Collection Method Collection Time Re ceived Time Location / / Volume Laterality 01/04/2005 12:32 PM FINANCE MANAGER Ander Thurman Robyn [facility]_1 Performing Organization Address [facility] Phon e Number HP CONVERSION (ABNORMAL) Electrolytes (NA, K, CL, Bicarb) (01/04/2005 12:32 PM FINANCE MANAGER) athologist Signature Sodium 145 137 - 147 HP CONVERSION meq/L Potassium 3.6 3.5 - 5.2 HP CONVERSION meq/L Chloride 112 (H) 98 - 110 HP CONVERSION meq/L Bicarbonate 22 (L) 23 - 33 HP CONVERSION mmol/L Specimen (Source) Anatomical Collection Method Collection Time Re ceived Time Location / / Volume Laterality 01/04/2005 12:32 PM FINANCE MANAGER Ander Thurman Robyn [facility]_1 Performing Organization Address City/[facility] Code Phon e Number HP CONVERSION documented in this encounter Visit Diagnoses Not on filedocumented in this encounter Care Teams Web Design Intern Relationship Specialty Start Date End Date Theresa Hardy MD PCP - General 05/22/10 03/15/21 [address] [place] [facility] Conklin [address] documented as of this encounter
--- OUTSIDE RECORDS SUMMARY | 2021-12-03 08:35 | XMS_ITS | Encounter Summary ---
:1970 [facility] Address [address], [place] [address] Care Team Providers Name Role Phone Theresa Hardy MD Primary Care Provider Reason for Visit Reason Comments Other Encounter Details Date Type Department Care Team Description 09/12/2004 Telephone [facility] [place] Other [address] [place] [address] Social History Tobacco Use Types [...] at Date Recorded Female 02/21/2021 8:36 PM SMOKED MEAT PREPARER documented as of this encounter Progress Notes iVji Hayes - 09/12/2004 8:54 AM CDT Phone Note filed by Viji Hayes RN at 06/04/101932 Author: Viji Hayes RN Service: (none) Author Type: Registered Nurse Filed: 06/04/101932 Note Time: 09/12/04853 Status: Signed Yarn Examiner: Viji Hayes, RN (Registered Nurse) Fifi was seen August 17 for some r-sided abdominal pain and possible IBS issues (no dication from visit). She had a RUQ US, and that was normal. Her symptoms persist. You told her to come back if symptoms persist. 1st available appt. is October 02. Call her at home:[phone]...detailed message is ok. If you need to talk call her cell if not home:[phone]. Created on 12Sep2004 8:54am by VIJI HAYES On 12Sep2004 12:25pm VENKATA VEGA wrote: carol call and schedule follow up appt Acknowledged by VENKATA VEGA on 12:25pm On 12Sep2004 1:51pm CAROL STEVENS wrote: Pt. called and scheduled for appt. 09/24. Acknowledged by CAROL STEVENS on 1:51pm ED MEAT PREPARER documented in this encounter Plan of Treatment Upcoming Encounters Date Type Specialty Care Team Description 01/02/2022 Appointment Radiology PN Kian Winters MBBS [address] [place] [address] (Wo rk) 01/04/2022 Appointment Oncology Kian Winters MBBS [address] [place] N [address] (Wo rk) documented as of this encounter Visit Diagnoses Not on filedocumented in this encounter Care Teams Surgeon'S Assistant Relationship Specialty Start Date End Date Theresa Hardy MD PCP - General 05/22/10 03/15/21 [address] [place] T[facility] Conklin [phone] documented as of this encounter
--- OUTSIDE RECORDS SUMMARY | 2021-12-03 08:35 | XMS_ITS | Encounter Summary ---
:1970 Author [email or web address] Address [address] [place] [address] Care Team Providers Name Role Phone Theresa Hardy MD Primary Care Provider Encounter Details Date Type Department Care Team Description 03/07/2004 PN Conversion Only [facility] N Laureen Bojorquez, [address] [place] [address] [address] [place] [address] (Wo rk) Social History Tobacco [...] at Date Recorded Female 02/21/2021 8:36 PM DRY COLOR MIXER documented as of this encounter Plan of Treatment Upcoming Encounters Date Type Specialty Care Team Description 01/02/2022 Appointment Radiology PN Kian Winters MBBS [address] [facility] [place] N [address] (Wo rk) 01/04/2022 Appointment Oncology Kian Winters JUANCARLOS [place] [address] [place] [address] [place] [address] [address] (Wo rk) documented as of this encounter Procedures Procedure Name Priority Date/Time Associated Comments Diagnosis WET PREP Routine 03/07/2004 1:30 PM Results f or this DRY COLOR MIXER procedure are i n the results section. GLUCOSE Routine 03/07/2004 10:28 AM Results for this DRY COLOR MIXER procedure are i n the results section. HGB A1C Routine 03/07/2004 10:28 AM Results for this DRY COLOR MIXER procedure are i n the results section. ANATOMICAL PATH Routine 03/07/2004 7:24 AM Result s for this LIQUID BASED DRY COLOR MIXER procedure are i n the results section. documented in this encounter Results Wet Prep (03/07/2004 1:30 PM DRY COLOR MIXER) athologist Signature Wet Prep SEE TEXT HP CONVERSION Comment: Patient: MARII JOSÉ Wet Prep @ ?Collected: ?1330 Source: Vaginal ? Processed: ?1330 ? V Final Report ------ Many WBCs seen Moderate epithelial cells seen No Trichomonas seen Moderate yeast seen No clue cells seen @ = WET PREP Performed at ??[address] [place], [place] ??[address] Specimen (Source) Anatomical Collection Method Collection Time Re ceived Time Location / / Volume Laterality 03/07/2004 1:30 PM DRY COLOR MIXER Laureen Bojorquez MD LAB_1 Performing Organization Address City/State/ZIP Code Phon e Number HP CONVERSION Glucose (03/07/2004 10:28 AM DRY COLOR MIXER) P athologist Signature Lab Glucose 99 60 - 100 HP CONVERSION mg/dL Specimen (Source) Anatomical Collection Method Collection Time Re ceived Time Location / / Volume Laterality 03/07/2004 10:28 AM DRY COLOR MIXER Laureen Bojorquez MD LAB_1 Performing Organization Address City/State/ZIP Code Phon e Number HP CONVERSION Hgb A1c (03/07/2004 10:28 AM DRY COLOR MIXER) P athologist Signature HGB A1C 5.1 <6.0 % HP CONVERSION Specimen (Source) Anatomical Collection Method Collection Time Re ceived Time Location / / Volume Laterality 03/07/2004 10:28 AM DRY COLOR MIXER Laureen Bojorquez MD LAB_1 Performing Organization Address [facility] Code Phon e Number HP CONVERSION Pap Smear (03/07/2004 7:24 AM DRY COLOR MIXER) Patholo gist Method Time Signature PAP Smear SEE TEXT No normal HP CONVERSION Liquid Based range Comment: Patient: MARII JOSÉ ? CERVICAL CYTOLOGY REPORT Pathology # ??[id number] ?Date Obtained: ? Date Received: CYTOLOGIC IMPRESSION: [...] / / Volume Laterality 03/07/2004 7:24 AM DRY COLOR MIXER Laureen Bojorquez MD LAB_1 Performing Organization Address City/State/ZIP Code Phon e Number HP CONVERSION documented in this encounter Visit Diagnoses Not on filedocumented in this encounter Care Teams Consumer Relations Complaint Clerk Relationship Specialty Start Date End Date Theresa Hardy MD PCP - General 05/22/10 03/15/21 [address] [place] T[facility] Conklin [address] documented as of this encounter
--- OUTSIDE RECORDS SUMMARY | 2021-12-03 08:35 | XMS_ITS | Encounter Summary ---
:1970 Author Organization [facility] Address [address], [place] [address] Care Team Providers Name Role Phone Theresa Hardy MD Primary Care Provider Encounter Details Date Type Department Care Team Description 10/01/2004 Office Visit [facility] Evelyn Andrade, [address] [place] [address] [facility] [phone] [place], [place] [address] Social History Tobacco Use [...] at Date Recorded Female 02/21/2021 8:36 PM PASTRYCOOK documented as of this encounter Last Filed [...] 0635 Note Time: 10/01/04 0001 Status: Signed Eligibility Examiner: Evelyn Andrade PA-C (Resource) NAME: MARII JOSÉ MR: [id number] ACCT: [id number] VISIT: [id number] DICTATING CLINICIAN: EVELYN ANDRADE PA-C JOB: [id number] CLINIC PROGRESS NOTE DATE OF VISIT: 10/01/2004 [...] prior to that time, should be re-seen. [id number] C: 10/03/04 06:39 DOCUMENT: [id number] documented in this encounter Plan of Treatment Upcoming Encounters Date Type Specialty Care Team Description 01/02/2022 Appointment Radiology PN Kian Winters MBBS [address] [facility], N [address] (Opal osman) 01/04/2022 Appointment Oncology [facility] Winters [facility]BS [facility] [facility] [address] (Opal osman) documented as of this encounter [...] no evidence for free air nor obstruction. [facility]/ [id number] Dictating ALBIN BOYKIN MD Procedure Note Albin Medina - 04/25/2016 Large pelvic phlebolith on the left. Mil d rotoscoliosis convex right. Nonspecific abdominal gas pattern with no evidence for free air nor obstruction. [facility]/ 614080 Dictating ALBIN BOYKIN MD Evelyn Andrade PA-C RAD GD documented in this encounter Visit Diagnoses Not on filedocumented in this encounter Care Teams Retail Supervisor Relationship Specialty Start Date End Date Theresa Hardy MD PCP - General 05/22/10 03/15/21 [address] [place] T[facility] Conklin [address] documented as of this encounter
--- OUTSIDE RECORDS SUMMARY | 2021-12-03 08:35 | XMS_ITS | Encounter Summary ---
:1970 Author Organization [facility] Address [address] [place] [address] Care Team Providers Name Role Phone Theresa Hardy MD Primary Care Provider Reason for Visit Reason Comments Other Encounter Details Date Type Department Care Team Description 12/31/2004 Telephone [facility], Message Other [address] [place], [place] [address] Social History Tobacco Use Types [...] at Date Recorded Female 02/21/2021 8:36 PM MATRIX SUPERVISOR documented as of this encounter Progress Notes Edna Olivia - 12/31/2004 9:07 AM CST Phone Note filed by Edna Olivia LPN at 06/04/102213 Author: Edna Olivia LPN Service: (none) Author Type: (none) Filed: 06/04/102213 Note Time: 12/31/04906 Status: Signed Energy Sales Consultant: Imr Conversion Phone Care Triage Note [facility] Vomiting and Diarrhea Nursing Reference - [...] dry, do not wipe. Information given per: [facility] Vomiting/Diarrhea Nursing Reference Advised to callback [...] Pt was scheduled with at the [facility] for today at 2:30pm. Patient/Caller agrees with plan and denies additional questions. Denies any emergent, urgent symptoms Data collected by COAL INSPECTOR, Clinician sign off needed. Created on 31Dec2004 9:08am by EDNA OLIVIA On 31Dec2004 3:14pm GODWIN CARDONA wrote: Review of the audit trail shows that the appt. is cancelled. Acknowledged by GODWIN CARDONA on 3:14pm IX SUPERVISOR documented in this encounter Plan of Treatment Upcoming Encounters Date Type Specialty Care Team Description 01/02/2022 Appointment Radiology PN Kian Winters, JUANCARLOS [address] [facility] N [address] (Wo rk) 01/04/2022 Appointment Oncology Kian Winters MBBS [address] [facility], N [address] (Wo rk) documented as of this encounter Visit Diagnoses Not on filedocumented in this encounter Care Teams Armor Reconnaissance Vehicle Driver Relationship Specialty Start Date End Date Theresa Hardy MD PCP - General 05/22/10 03/15/21 [address] [place] T[facility] Conklin [phone] documented as of this encounter
--- OUTSIDE RECORDS SUMMARY | 2021-12-03 08:35 | XMS_ITS | Encounter Summary ---
:1970 Author Organization [email or web address] Address [address] [place] [address] Care Team Providers Name Role Phone Theresa Hardy MD Primary Care Provider Encounter Details Date Type Department Care Team Description 06/13/2003 PN Conversion Only [facility] Venkata Bojorquez, Medicine [address] [place] [address] DR[address] [phone] [place] [id number] (Wo rk) Social History Tobacco Use Types [...] at Date Recorded Female 02/21/2021 8:36 PM ON AIR TALENT documented as of this encounter Progress Notes Venkata Bojorquez MD - 06/13/2003 12:01 AM CDT Progress Notes signed by Venkata Bojorquez MD at 09/02/03 5613 Author: Venkata Bojorquez MD Service: (none) Author Type: Physician Filed: 06/07/10 220 Note Time: 06/13/03 0001 Status: Signed Clinical Trials Assistant: Venkata Bojorquez MD (Physician) NAME: FIFI JOSÉ MR: [id number] ACCT: [id number] VISIT: [id number] DICTATING CLINICIAN: VENKATA BOJORQUEZ MD JOB: [id number] CLINIC PROGRESS NOTE DATE OF VISIT: 06/13/2003 [...] on routine wound care. Follow up p.r.n. [id number] C: 07/26/03 10:10 DOCUMENT: [id number] Venkata Bojorquez MD - 05/30/2003 12:01 AM CDT Progress Notes signed by Venkata Bojorquez MD at 07/02/03 2128 Author: Venkata Bojorquez MD Service: (none) Author Type: Physician Filed: 06/07/10 1950 Note Time: 05/30/03 0001 Status: Signed Clinical Trials Assistant: Venkata Bojorquez MD (Physician) NAME: FIFI JOSÉ MR: [id number] ACCT: [id number] VISIT: [id number] DICTATING CLINICIAN: VENKATA BOJORQUEZ MD JOB: [id number] CLINIC PROGRESS NOTE DATE OF VISIT: 05/30/2003 [...] recent infection. No active infection or cellulitis. [id number] C: 05/31/03 15:35 DOCUMENT: [id number] Venkata Bojorquez MD - 04/27/2003 12:01 AM CST Progress Notes signed by Venkata Bojorquez MD at 09/02/03 1535 Author: Venkata Bojorquez MD Service: (none) Author Type: Physician Filed: 06/07/10 1916 Note Time: 04/27/03 0001 Status: Signed Clinical Trials Assistant: Venkata Bojorquez MD (Physician) NAME: FIFI JOSÉ MR: [id number] ACCT: VISIT: [id number] DICTATING CLINICIAN: VENKATA BOJORQUEZ MD JOB: [id number] CLINIC PROGRESS NOTE DATE OF VISIT: 04/27/2003 [...] she should come back in for removal. [id number] C: 07/27/03 09:52 DOCUMENT: [id number] Phone Note, Clinician - 04/08/2003 12:01 AM CST Phone Note filed by Clinician Phone Note at 06/05/10 1321 Author: Clinician Phone Note Service: (none) Author Type: Resource Filed: 06/05/10 1321 Note Time: 04/08/03 0001 Status: Signed Clinical Trials Assistant: Clinician Phone Note (Resource) TO: VENKATA BOJORQUEZ FROM: STORMY VAZQUEZ [phone] 04/08/03 * PROVIDER MESSAGE: RETURN * 12:08PM * CALL REQUESTED * MESSAGE: Pt is currently taking 150mg * HOME PHONE:[phone] * of Topamax QD, has not taken at all * CONTACT PHONE:[phone] * this week because she doesn't like [...] GIVEN CALL BY STORMY VAZQUEZ 04/08/2003 12:05PM [phone] ADDENDUM: <> 04/08/2003 01:24PM by CAROL STEVENS DEICER TESTER: Dr. Bojorquez ok'd rx for amitriptyline and [...] 1301 Note Time: 03/02/03 0001 Status: Signed Clinical Trials Assistant: Clinician Phone Note (Resource) TO: VENKATA BOJORQUEZ FROM: ESTEFANY CANTU [phone] 03/02/03 * PROVIDER MESSAGE: ROUTINE * 02:51PM * *WITHIN 4 HOURS * MESSAGE: Clarification from previous * HOME PHONE:[phone] * RX for Topamax It is to be Topamax * CONTACT PHONE:[phone] * 25mg th ree tabs PO daily x one * PHARMACY: [phone] * week then increase by 25mg weekly * [facility] * up to 150mg weekly. Pharm needed clarification re: daily. Pharm informed. SUBJECTIVE: ALLERGIES/SENSITIVITIES... none 03/02/03 CURRENT MEDICATIONS... Topamax 03/02/03 PERTINENT PAST HISTORY... migraines 03/02/03 WEIGHT: ASSESSMENT: Rx PLAN: DISPOSITION: NO DISPOSITION GIVEN CALL BY ESTEFANY CANTU 03/02/2003 02:45PM [id number] ADDENDUM: Phone Note, Clinician - 03/02/2003 12:01 AM CST Phone Note filed by Clinician Phone Note at 06/05/10 1301 Author: Clinician Phone Note Service: (none) Author Type: Resource Filed: 06/05/10 4847 Note Time: 03/02/03 0001 Status: Signed Clinical Trials Assistant: Clinician Phone Note (Resource) TO: VENKATA BOJORQUEZ FROM: DARLINE HAYES RN [phone] * PROVIDER MESSAGE: ROUTINE * 03/02/03 09:42AM * *WITHIN 4 HOURS * MESSAGE: I saw in * HOME PHONE:[phone] * January for my migraines...I take * CONTACT PHONE:[phone] * Topamax to prevent them....she told * PHARMACY: [phone] [facility] * me to call if I was getting * [place] * worse...I am torrez ving 2-3 migraines a week. SUBJECTIVE: ALLERGIES/SENSITIVITIES... none 03/02/03 CURRENT MEDICATIONS... Topamax 03/02/03 PERTINENT PAST HISTORY... migraines 03/02/03 WEIGHT: PATIENT IS NOT . PATIENT IS NOT NURSING. ASSESSMENT: Migraines PLAN: DISPOSITION: NO DISPOSITION GIVEN CALL BY DARLINE HAYES RN 03/02/2003 09:39AM [phone] ADDENDUM: <> 03/02/2003 02:29PM by ESTEFANY CANTU: [...] 1743 Note Time: 02/02/03 0001 Status: Signed Clinical Trials Assistant: Venkata Bojorquez MD (Physician) NAME: FIFI JOSÉ MR: [id number] ACCT: [id number] VISIT: [id number] DICTATING CLINICIAN: VENKATA BOJORQUEZ MD JOB: [id number] CLINIC PROGRESS NOTE DATE OF VISIT: 02/02/2003 [...] will be notified of results. TT: CT: [id number] C: 02/15/03 16:26 DOCUMENT: [id number] AIR TALENT documented in this encounter Plan of Treatment Upcoming Encounters Date Type Specialty Care Team Description 01/02/2022 Appointment Radiology PN Kian Winters MBBS [address] [place] [address] (Wo rk) 01/04/2022 Appointment Oncology Kian Winters MBBS [address] [facility], N [address] (Wo rk) documented as of this encounter Visit Diagnoses Not on filedocumented in this encounter Care Teams Painter And Grader Cork Relationship Specialty Start Date End Date Theresa Hardy MD PCP - General 05/22/10 03/15/21 [address] [place] TIR[facility] Conklin [id number] documented as of this encounter
--- OUTSIDE RECORDS SUMMARY | 2021-12-03 08:35 | XMS_ITS | Encounter Summary ---
:1970 Author Organization [facility] Address [address] [address] Care Team Providers Name Role Phone Theresa Hardy MD Primary Care Provider Encounter Details Date Type Department Care Team Description 08/09/2003 PN Conversion Only [place] [address] [address] [place] [address] Social History Tobacco Use Types Packs/Day Years [...] at Date Recorded Female 02/21/2021 8:36 PM FURNITURE CRATER documented as of this encounter Plan of Treatment Upcoming Encounters Date Type Specialty Care Team Description 01/02/2022 Appointment Radiology PN Kian Winters MBBS 3491 [facility] [place] LINO N 227066 (Opal osman) 01/04/2022 Appointment Oncology Kian Winters MBBS 3931 [facility] [place] LIN[place] N [address] (Opal osman) documented as of this encounter Visit Diagnoses Not on filedocumented in this encounter Care Teams Care Management Coordinator Relationship Specialty Start Date End Date Theresa Hardy MD PCP - General 05/22/10 03/15/21 [address] [place] [address] documented as of this encounter
--- OUTSIDE RECORDS SUMMARY | 2021-12-03 08:35 | XMS_ITS | Encounter Summary ---
:1970 Author Organization [facility] Address [address] [address] Care Team Providers Name Role Phone Theresa Hardy MD Primary Care Provider Encounter Details Date Type Department Care Team Description 12/25/2004 Nursing Visit [facility] [place] [address] [facility] [address] [place], [place] [address] [place] [address] [phone] Social History Tobacco Use Types Packs/Day [...] Date Recorded Female 02/21/2021 8:36 PM MARKETING UNDERWRITER documented as of this encounter Plan of Treatment Upcoming Encounters Date Type Specialty Care Team Description 01/02/2022 Appointment Radiology PN Kian Winters, JUANCARLOS 2[address] [facility] [place] N [address] (Wo rk) 01/04/2022 Appointment Oncology Kian Winters MBBS [address] [facility] [address] [place] CA[place] N 959406 (Wo rk) documented as of this encounter Visit Diagnoses Not on filedocumented in this encounter Care Teams Medical Interpreter Relationship Specialty Start Date End Date Theresa Hardy MD PCP - General 05/22/10 03/15/21 [address] [place] [address] documented as of this encounter
--- OUTSIDE RECORDS SUMMARY | 2021-12-03 08:35 | XMS_ITS | Encounter Summary ---
:1970 Author Organization [facility] Address [address] [address] Care Team Providers Name Role Phone Theresa Hardy MD Primary Care Provider Encounter Details Date Type Department Care Team Description 12/21/2004 Office Visit [facility] [place] [address] [address] [place] [address] Social History Tobacco Use Types [...] Date Recorded Female 02/21/2021 8:36 PM TRUCK DRIVER FLATBED documented as of this encounter Last Filed Vital Signs Vital Sign Reading Time Taken Comments Blood Pressure 145/70 12/21/2004 8:41 AM TRUCK DRIVER FLATBED Pulse 80 12/21/2004 8:41 AM TRUCK DRIVER FLATBED Temperature 36.9 ??C (98.4 ??F) 12/21/2004 8:41 AM ORAL C: 3 6.9 C TRUCK DRIVER FLATBED Respiratory Rate 22 12/21/2004 8:41 AM TRUCK DRIVER FLATBED Oxygen Saturation 98% 12/21/2004 8:41 AM TRUCK DRIVER FLATBED Inhaled Oxygen Concentration - - Weight - - Height - - Body Mass Index - - documented in this encounter Progress Notes Chance Martines MD - 12/21/2004 12:01 AM CST Progress Notes signed by Chance Martines MD at 01/18/05 1610 Author: Chance Martines MD Service: (none) Author Type: Physician Filed: 06/08/10 0808 Note Time: 12/21/04 0001 Status: Signed Gang Punch Operator: Chance Martines MD (Physician) NAME: MARII JOSÉ MR: [id number] ACCT: [id number] VISIT: [id number] DICTATING CLINICIAN: CHANCE MARTINES MD JOB: [id number] CLINIC PROGRESS NOTE DATE OF VISIT: 12/21/2004 [...] will follow up if that would recur. [id number] C: 12/21/04 15:47 DOCUMENT: [id number] K DRIVER FLATBED documented in this encounter Plan of Treatment Upcoming Encounters Date Type Specialty Care Team Description 01/02/2022 Appointment Radiology PN Kian Winters, JUANCARLOS 3931 [facility] [place] N [address] (Wo rk) 01/04/2022 Appointment Oncology Kian Winters MBBS 3931 [facility] [place], [place] N [address] (Wo rk) documented as of this encounter Visit Diagnoses Not on filedocumented in this encounter Care Teams Staffing Clerk Relationship Specialty Start Date End Date Theresa Hardy MD PCP - General 05/22/10 03/15/21 [address] [place] [address] documented as of this encounter
--- OUTSIDE RECORDS SUMMARY | 2021-12-03 08:35 | XMS_ITS | Encounter Summary ---
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 Comment:- Pharmacy Seq #:-[phone] [facility] Street or City:-[place] Clinician Name:-Domitila Hardy Drug Name/Strength:-Topamax 100MG tab Sig:-take one tab twice daily Quantity:-60 Last Fill:-07/03/05 Created on 12Aug2005 2:43pm by ISRAEL VAZQUEZ On 12Aug2005 2:54pm MARIAELENA HARDY wrote: faxed. Acknowledged by MARIAELENA HARDY on 2:54pm STANT PROFESSOR OF BIOLOGY documented in this encounter Plan of Treatment Upcoming Encounters Date Type Specialty Care Team Description 01/02/2022 Appointment Radiology PN Kian Winters MBBS 3931 [facility], N [address] (Wo rk) 01/04/2022 Appointment Oncology Kian Winters MBBS 3931 [facility], N [address] (Wo rk) documented as of this encounter Visit Diagnoses Not on filedocumented in this encounter Care Teams Blanket Maker Relationship Specialty Start Date End Date Mariaelena Hardy MD PCP - General 05/22/10 03/15/21 [address] [place] [address] documented as of this encounter
--- OUTSIDE RECORDS SUMMARY | 2021-12-03 08:35 | XMS_ITS | Encounter Summary ---
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 Comment:- Pharmacy Seq #:-[phone] [facility] Street or City:-[place] Clinician Name:-Antony Drug Name/Strength:-Lo/Ovral-28 Sig:-Take 1 tab daily. Quantity:-28 Last Fill:-08/01/05 Created on 12Aug2005 1:05pm by PETTY ARTEAGA J On 13Aug2005 11:12am LINDSEY HELM wrote: Rx faxed. RAL HOME ATTENDANT documented in this encounter Plan of Treatment Upcoming Encounters Date Type Specialty Care Team Description 01/02/2022 Appointment Radiology PN Kian Winters MBBS 3931 [facility] [place] LIN[place] N [address] (Wo rk) 01/04/2022 Appointment Oncology iKan Winters MBBS 3931 [place] [facility] [place] RAIN N [address] (Wo rk) documented as of this encounter Visit Diagnoses Not on filedocumented in this encounter Care Teams Pe Manager Relationship Specialty Start Date End Date Theresa Hardy MD PCP - General 05/22/10 03/15/21 [address] [place] [address] documented as of this encounter
--- OUTSIDE RECORDS SUMMARY | 2021-12-03 08:35 | XMS_ITS | Encounter Summary ---
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 documented as of this encounter Plan of Treatment Upcoming Encounters Date Type Specialty Care Team Description 01/02/2022 Appointment Radiology PN Kian Winters MBBS 7131 [facility] [place] LIN[place] N 266756 (Opal osman) 01/04/2022 Appointment Oncology Kian Winters MBBS 3931 [facility] [place] LIN[place] N [address] (Opal osman) documented as of this encounter Visit Diagnoses Not on filedocumented in this encounter Care Teams Crime Scene Photographer Relationship Specialty Start Date End Date Theresa Hardy MD PCP - General 05/22/10 03/15/21 [address] [place] [address] documented as of this encounter
--- OUTSIDE RECORDS SUMMARY | 2021-12-03 08:35 | XMS_ITS | Encounter Summary ---
:1970 [facility] Address [address] [address] Care Team Providers Name Role Phone Mariaelena Hardy MD Primary Care Provider Encounter Details Date Type Department Care Team Description 03/18/2005 Office Visit [facility] [place] [address] [place] [address] [place], [place] [address] (Wo rk) Social History Tobacco Use Types [...] at Date Recorded Female 02/21/2021 8:36 PM PRODUCT DEVELOPMENT CARPENTER documented as of this encounter Last Filed Vital Signs Vital Sign Reading Time Taken Comments Blood Pressure 106/80 03/18/2005 9:04 AM PRODUCT DEVELOPMENT CARPENTER Pulse 72 03/18/2005 9:04 AM PRODUCT DEVELOPMENT CARPENTER Temperature - - Respiratory Rate - - Oxygen Saturation - - Inhaled Oxygen Concentration - - Weight 66.2 kg (145 lb 15.8 oz) 03/18/2005 9:04 AM C: 6 6.2kg PRODUCT DEVELOPMENT CARPENTER Height 149.9 cm (4' 11) 03/18/2005 9:04 AM C: 149.9cm PRODUCT DEVELOPMENT CARPENTER Body Mass Index 29.49 03/18/2005 9:04 AM PRODUCT DEVELOPMENT CARPENTER documented in this encounter Progress Notes Mariaelena Hardy MD - 03/18/2005 12:01 AM CST H&P signed by Mariaelena Hardy MD at 04/07/05 1637 Author: Mariaelena Hardy MD Service: (none) Author Type: Physician Filed: 06/08/10 0953 Note Time: 03/18/05 0001 Status: Signed Personnel Records Clerk: Mariaelena Hardy MD (Physician) NAME: AMRII JOSÉ MR: [id number] ACCT: [id number] VISIT: [id number] DICTATING CLINICIAN: MARIAELENA HARDY MD JOB: [id number] CLINIC PHYSICAL DATE OF VISIT: 03/18/2005 SUBJECTIVE: [...] HISTORY: None. HOSPITALIZATIONS: None. [facility]S: [facility] The [facility] currently takes Topamax, Lo-Ovral, [...] labs in the mail. PLAN: See assessment. [id number] C: 03/19/05 14:40 DOCUMENT: [id number] UCT DEVELOPMENT CARPENTER documented in this encounter Plan of Treatment Upcoming Encounters Date Type Specialty Care Team Description 01/02/2022 Appointment Radiology PN Kian Winters, JUANCARLOS 39[address] [facility], N [address] (Wo rk) 01/04/2022 Appointment Oncology Kian Winters MBBS 3931 [facility], [place] N [address] (Wo rk) documented as of this encounter Visit Diagnoses Not on filedocumented in this encounter Care Teams Inhalation Therapist Relationship Specialty Start Date End Date Mariaelena Hardy MD PCP - General 05/22/10 03/15/21 [address] [place] [address] documented as of this encounter
--- OUTSIDE RECORDS SUMMARY | 2021-12-03 08:35 | XMS_ITS | Encounter Summary ---
:1970 Author [facility] Address [address] [address] Care Team Providers Name Role Phone Theresa Hardy MD Primary Care Provider Encounter Details Date Type Department Care Team Description 03/07/2004 Office Visit [facility] [place] [address] [facility] [address] [place] [address] [place], [place] [address] (Wo rk) Social History Tobacco Use Types [...] Date Recorded Female 02/21/2021 8:36 PM TIMBER RIDER documented as of this encounter Progress Notes Venkata Bojorquez MD - 03/07/2004 12:01 AM CST Progress Notes signed by Venkata Bojorquez MD at 03/28/04 0215 Author: Venkata Bojorquez MD Service: (none) Author Type: Physician Filed: 06/08/10 0241 Note Time: 03/07/04 0001 Status: Signed Excelsior Machine Operator: Venkata Bojorquez MD (Physician) NAME: MARII JOSÉ MR: [id number] ACCT: [id number] VISIT: [id number] DICTATING CLINICIAN: VENKATA BOJORQUEZ MD JOB: [id number] CLINIC PROGRESS NOTE DATE OF VISIT: 03/07/2004 [...] time, sooner as needed. PLAN: See assessment. [id number] C: 03/26/04 16:55 DOCUMENT: [id number] ER RIDER documented in this encounter Plan of Treatment Upcoming Encounters Date Type Specialty Care Team Description 01/02/2022 Appointment Radiology PN Kian Winters MBBS [address] [place] Ramesh [place] N 249716 (Opal osman) 01/04/2022 Appointment Oncology Kian Winters MBBS [address] [place] [address] [facility] [address] [place] [address] (Wo rk) documented as of this encounter Visit Diagnoses Not on filedocumented in this encounter Care Teams Field Handyman Relationship Specialty Start Date End Date Theresa Hardy MD PCP - General 05/22/10 03/15/21 [address] [place] [address] documented as of this encounter
--- OUTSIDE RECORDS SUMMARY | 2021-12-03 08:35 | XMS_ITS | Encounter Summary ---
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 Pancreatic tail poorly visualized. [facility]/ [id number] Dictating GEOVANY DOUGLAS RADIOLOGIST Narrative 08/29/2004 7:37 [...] in the left abdomen . Procedure Note Goevany Saunders - 04/25/2016Formattin g of this note [...] quadrant ultrasound study. Pancreatic tail poorly visualized. [facility]/ [id number] Dictating GEOVANY DOUGLAS RADIOLOGIST Laureen Bojorquez MD RAD US documented in this encounter Visit Diagnoses Not on filedocumented in this encounter Care Teams Medical Observer Relationship Specialty Start Date End Date Theresa Hardy MD PCP - General 05/22/10 03/15/21 [address] [place] T[place] [address] documented as of this encounter
--- OUTSIDE RECORDS SUMMARY | 2021-12-03 08:35 | XMS_ITS | Encounter Summary ---
:1970 Author Organization [facility] Address [address] [address] Care Team Providers Name Role Phone Mariaelena Hardy MD Primary Care Provider Reason for Visit Reason Comments Other Encounter Details Date Type Department Care Team Description 11/19/2005 Telephone [facility] Mariaelena Juan MD Other [address] [place] [address] [place], [place] [address] (Wo rk) Social History Tobacco Use Types [...] Date Recorded Female 02/21/2021 8:36 PM RN CRITICAL CARE documented as of this encounter Progress Notes Center, Message - 11/19/2005 10:48 AM CDT Phone Note filed by the grafter at 06/05/10 1918 Author: Message Center Service: (none) Author Type: (none) Filed: 06/05/10 0924 Note Time: 11/19/05 1048 Status: Signed Solar Field Service Technician: Message Dunbar Prescription Refill Please provide enough refills to last until patient's next visit. Comment:- Pharmacy Seq #:-[phone] [facility] Street or City:-[place] Clinician Name:-Domitila Hardy Drug Name/Strength:-Topamax 100MG Sig: Dose/Route/Freq:-take one tab twice daily Quantity & Last Fill:-60 10/20/05 Created on 19Nov2005 10:48am by ISRAEL VAZQUEZ On 19Nov2005 12:16pm MARIAELENA HARDY wrote: faxed. Acknowledged by MARIAELENA HARDY on 12:16pm CRITICAL CARE documented in this encounter Plan of Treatment Upcoming Encounters Date Type Specialty Care Team Description 01/02/2022 Appointment Radiology PN Kian Winters MBBS 3931 [facility], N [address] (Wo rk) 01/04/2022 Appointment Oncology Kian Winters MBBS 3931 [facility], N [address] (Wo rk) documented as of this encounter Visit Diagnoses Not on filedocumented in this encounter Care Teams Travel Coordinator Relationship Specialty Start Date End Date Mariaelena Hardy MD PCP - General 05/22/10 03/15/21 [address] [place] T[facility] Conklin [address] documented as of this encounter
--- OUTSIDE RECORDS SUMMARY | 2021-12-03 08:35 | XMS_ITS | Encounter Summary ---
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 She was at [facility] ER an on 12/27 for diarrhea. She made an appt.today because she was no better. She just received a call from [facility] that her stool test was positive for C Diff. They are going to prescribe treatment for her and asked her to come for a recheck appt.the end of this week. Appt. made this Thursday 01/04 in [facility] and appt. in [place] was cancelled for today. Created on 31Dec2004 10:16am by VIJI H[place] AND GAME WARDEN documented in this encounter Plan of Treatment Upcoming Encounters Date Type Specialty Care Team Description 01/02/2022 Appointment Radiology PN Kian Winters MBBS 3931 [facility], N [address] (Wo rk) 01/04/2022 Appointment Oncology Kian Winters MBBS 3931 [facility] [place], [place] N [address] (Wo rk) documented as of this encounter Visit Diagnoses Not on filedocumented in this encounter Care Teams Plant Safety Leader Relationship Specialty Start Date End Date Theresa Hardy MD PCP - General 05/22/10 03/15/21 [address] [place] T[facility] Conklin 778377 documented as of this encounter
--- OUTSIDE RECORDS SUMMARY | 2021-12-03 08:35 | XMS_ITS | Encounter Summary ---
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 documented as of this encounter Plan of Treatment Upcoming Encounters Date Type Specialty Care Team Description 01/02/2022 Appointment Radiology PN Kian Winters MBBS 1841 [facility] [place] LIN[place] N 217896 (Opal osman) 01/04/2022 Appointment Oncology Kian Winters MBBS 3931 [facility] [place] LIN[place] N [address] (Opal soman) documented as of this encounter Visit Diagnoses Not on filedocumented in this encounter Care Teams Information Services Vice President Relationship Specialty Start Date End Date Theresa Hardy MD PCP - General 05/22/10 03/15/21 [address] [place] T[place] [address] documented as of this encounter
--- OUTSIDE RECORDS SUMMARY | 2021-12-03 08:35 | XMS_ITS | Encounter Summary ---
:1970 Author [facility] Address [address] [address] Care Team Providers Name Role Phone Theresa Hardy MD Primary Care Provider Encounter Details Date Type Department Care Team Description 11/09/2003 Office Visit [facility] [place] [address] [facility] [address] [place] [address] [place], [place] [address] (Wo rk) Social History Tobacco Use Types [...] Recorded Female 02/21/2021 8:36 PM SOUND EFFECTS PERSON documented as of this encounter Progress Notes Venkata Bojorquez MD - 11/09/2003 12:01 AM CDT Progress Notes signed by Venkata Bojorquez MD at 01/07/041947 Author: Venkata Bojorquez MD Service: (none) Author Type: Physician Filed: 06/08/10 0035 Note Time: 11/09/03 0001 Status: Signed Employee Services Manager: Venkata Bojorquez MD (Physician) NAME: MARII JOSÉ MR: [id number] ACCT: [id number] VISIT: [id number] DICTATING CLINICIAN: VENKATA BOJORQUEZ MD JOB: [id number] CLINIC PROGRESS NOTE DATE OF VISIT: 11/09/2003 [...] her headaches should change. PLAN: See assessment. [id number] C: 11/15/03 17:34 DOCUMENT: [id number] D EFFECTS PERSON documented in this encounter Plan of Treatment Upcoming Encounters Date Type Specialty Care Team Description 01/02/2022 Appointment Radiology PN Kian Winters MBBS 3931 [facility], N [address] (Wo rk) 01/04/2022 Appointment Oncology Kian Winters MBBS 39[address] [facility], N [address] (Wo rk) documented as of this encounter Visit Diagnoses Not on filedocumented in this encounter Care Teams Artist Model Relationship Specialty Start Date End Date Theresa Hardy MD PCP - General 05/22/10 03/15/21 [address] [place] T[facility] Conklin 770767 documented as of this encounter
--- OUTSIDE RECORDS SUMMARY | 2021-12-03 08:35 | XMS_ITS | Encounter Summary ---
:1970 Author Organization [facility] Address [address], [place] [address] Care Team Providers Name Role Phone Theresa Hardy MD Primary Care Provider Reason for Visit Reason Comments Other Encounter Details Date Type Department Care Team Description 04/02/2004 Telephone [facility] [place], [place] Other [address] [place] [address] Social History Tobacco Use Types [...] at Date Recorded Female 02/21/2021 8:36 PM WATER MAIN PIPE LAYER documented as of this encounter [facility], Message - 04/02/2004 8:30 AM CST Phone Note filed by Warwick Warp at 06/04/10 906 Author: Nate Fernandez Service: (none) Author Type: (none) Filed: 06/04/101641 Note Time: 04/02/04829 Status: Signed Manufacturing Controller: Message Vtap Pt was seen in [facility] for her well-check, and she was [...] changed all together. Pt uses [facility] in [place]- [phone]. Fifi can be reached at [phone]. Created on 02Apr2004 8:30am by STORMY VAZQUEZ [...] 01/02/2022 Appointment Radiology PN Kian Winters MBBS [address] [facility] [place] N [address] (Wo rk) 01/04/2022 Appointment Oncology Kian Winters MBBS 5[address] [facility] [place] N [address] (Wo rk) documented as of this encounter Visit Diagnoses Not on filedocumented in this encounter Care Teams Gravity Prospecting Operator Helper Relationship Specialty Start Date End Date Theresa Hardy MD PCP - General 05/22/10 03/15/21 [address] [place] TIRSO Conklin [id number] documented as of this encounter
--- OUTSIDE RECORDS SUMMARY | 2021-12-03 08:35 | XMS_ITS | Encounter Summary ---
:1970 Author Organization [facility] Address [address] [place] [address] Care Team Providers Name Role Phone Theresa Hardy MD Primary Care Provider Encounter Details Date Type Department Care Team Description 10/01/2004 PN Conversion Only SORIN CONVERSIO Evelyn Harrell [address] [facility] [place] [address] [address] [facility] [address] [place] [address] Social History Tobacco Use Types [...] at Date Recorded Female 02/21/2021 8:36 PM CRITICAL CARE NURSE documented as of this encounter Plan of Treatment Upcoming Encounters Date Type Specialty Care Team Description 01/02/2022 Appointment Radiology PN Kian Winters MBBS [address] [facility] [place] N [address] (Wo rk) 01/04/2022 Appointment Oncology Kian Winters MBBS 39[address] [facility] [place] N [address] (Opal osman) documented as of this encounter [...] (10/01/2004 9:32 PM CDT) [facility] Urine Culture SEE TEXT HP CONVERSION Comment: Patient: FIFI JOSÉ Culture, Urine @ ?Collected: ??[id number] ??[id number] Source: Clean Ca ?Processed: ??[id number] ??2131 ? 1V,SENS Final Report ------ ?[id number] ??0942 No growth @ = URINE CULTURE Performed at [address], [place], [place] ?[address] Specimen (Source) Anatomical Collection Method Collection Time Re ceived Time Location / / Volume Laterality 10/01/2004 9:32 PM CDT Evelyn Fofana PA-C LAB_1 Performing Organization Address [facility] Phon e Number HP CONVERSION (ABNORMAL) Complete Blood Count-W/Diff (10/01/2004 8:46 PM CDT) [facility] Method Time Signature White Blood Cell [...] - HP CONVERSION Hemoglobin Conc 36.5 gm/dL Chisana RDW 11.4 11.0 - HP CONVERSION 15.0 [...] Evelyn Fofana PA-C LAB_1 Performing Organization Address [facility] Phon e Number HP CONVERSION (ABNORMAL) Urinalysis Complete Hold Culture (10/01/2004 8:46 PM CDT) [facility] [employer] Method Time Signature U Specific 1.025 1.005 - 25 HP CONVERSION [place] pH Urine 5.5 4.5 - 7.5 HP [...] on filedocumented in this encounter Care Teams Business Agent Relationship Specialty Start Date End Date Theresa Hardy MD PCP - General 05/22/10 03/15/21 [address] [place] TIRSO Conklin [address] documented as of this encounter
--- OUTSIDE RECORDS SUMMARY | 2021-12-03 08:35 | XMS_ITS | Encounter Summary ---
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 documented as of this encounter Plan of Treatment Upcoming Encounters Date Type Specialty Care Team Description 01/02/2022 Appointment Radiology PN Kian Winters MBBS 39[address] [facility] [place] N [address] (Wo rk) 01/04/2022 Appointment Oncology Kian Winters JUANCARLOS Morfin [address] [facility] [place] N [address] (Wo rk) documented as of this encounter [...] HP CONVERSION AST (08/17/2004 10:30 AM CDT) [facility] g[facility] Method Time Signature Aspartate 21 0 [...] Laureen Bojorquez MD LAB_1 Performing Organization Address [facility] Code Phon e Number HP CONVERSION Bilirubin, Total (08/17/2004 10:30 AM CDT) athologist Signature Bilirubin Total 1.2 0.2 - 1.2 HP CONVERSION mg/dL Specimen (Source) Anatomical Collection Method Collection Time Re ceived Time Location / / Volume Laterality 08/17/2004 10:30 AM CDT Laureen Bojorquez MD LAB_1 Performing Organization Address City/[facility] Code Phon e Number HP CONVERSION GT (Gamma GT) (08/17/2004 10:30 AM CDT) athologist Signature Gamma-Glutamyl 35 5 - 85 U/L HP CONVERSION Transferase Specimen (Source) Anatomical Collection Method Collection Time Re ceived Time Location / / Volume Laterality 08/17/2004 10:30 AM CDT Laureen Bojorquez MD LAB_1 Performing Organization Address City/[facility] Code Phon e Number HP CONVERSION Urinalysis Complete Hold Culture (08/17/2004 10:19 AM CDT) [facility] g[facility] Method Time Signature U Specific 1.020 1.005 - 25 HP CONVERSION [place] pH Urine 7.5 4.5 - 7.5 HP [...] filedocumented in this encounter Care Teams Marine Rigger Relationship Specialty Start Date End Date Theresa Hardy MD PCP - General 05/22/10 03/15/21 [address] [place] TIRSO Conklin [address] documented as of this encounter
--- OUTSIDE RECORDS SUMMARY | 2021-12-03 08:35 | XMS_ITS | Encounter Summary ---
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 N [address] (Wo rk) 01/04/2022 Appointment Oncology Kian Winters MBBS [address] [facility], N [address] (Wo rk) documented as of this encounter Visit Diagnoses Not on filedocumented in this encounter Care Teams Software Engineering Supervisor Relationship Specialty Start Date End Date Theresa Hardy MD PCP - General 05/22/10 03/15/21 [address] [place] TIRSO Conklin [phone] documented as of this encounter
--- OUTSIDE RECORDS SUMMARY | 2021-12-03 08:35 | XMS_ITS | Encounter Summary ---
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 documented as of this encounter Last Filed Vital Signs Vital Sign Reading Time Taken Comments Blood Pressure 110/78 01/04/2005 11:52 AM FLUX MIXER Pulse 70 01/04/2005 11:52 AM FLUX MIXER Temperature - - Respiratory Rate - - Oxygen Saturation - - Inhaled Oxygen Concentration - - Weight 69.3 kg (152 lb 12.5 oz) 01/04/2005 11:52 AM C: 69.3kg FLUX MIXER Height - - Body Mass Index - - documented in this encounter Progress Notes Donavan Nance MD - 01/04/2005 12:01 AM CST Progress Notes signed by Donavan Nance MD at 01/13/05 1843 Author: Donavan Nance MD Service: (none) Author Type: Physician Filed: 06/08/10 0825 Note Time: 01/04/052021 Status: Signed Lead Qa Analyst: Donavan Nance MD (Physician) NAME: MARII JOSÉ MR: [id number] ACCT: [id number] VISIT: [id number] DICTATING CLINICIAN: DONAVAN NANCE MD JOB: [id number] CLINIC PROGRESS NOTE DATE OF VISIT: 01/04/2005 SUBJECTIVE: : 1970. This is a new patient to internal medicine. She is here to followup recent emergency room visit at [facility]. She was seen there 12/27/04. [...] colitis. PLAN: I discussed her case with locksmith apprentice, Dr. Sharma. Since the diarrhea has not [...] and raw vegetables until she feels better. SHN:[id number] C: 01/05/05 05:46 DOCUMENT: [id number] MIXER documented in this encounter Plan of Treatment Upcoming Encounters Date Type Specialty Care Team Description 01/02/2022 Appointment Radiology PN Kian Winters MBBS [address] [facility], N [address] (Wo rk) 01/04/2022 Appointment Oncology Kian Winters MBBS [address] [facility], N [address] (Wo rk) documented as of this encounter Visit Diagnoses Not on filedocumented in this encounter Care Teams Alberene Stone Setter Relationship Specialty Start Date End Date Theresa Hardy MD PCP - General 05/22/10 03/15/21 [address] [place] TIRSO Conklin [address] documented as of this encounter
--- OUTSIDE RECORDS SUMMARY | 2021-12-03 08:35 | XMS_ITS | Encounter Summary ---
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 She will be notified of results when available. I have asked her that, if the medication does not help her symptoms or if her symptoms seem to be worsening, reviewed concerning symptoms for which she should be reevaluated. Will see her back in approximately four weeks for a recheck. TT: [address]: 30 minutes. SRR:[id number] C: 09/25/04 22:41 DOCUMENT: [id number] documented in this encounter Plan of Treatment Upcoming Encounters Date Type Specialty Care Team Description 01/02/2022 Appointment Radiology PN Kian Winters MBBS [address] [place] [facility] [place] N [address] (Wo rk) 01/04/2022 Appointment Oncology Kian Winters MBBS [address] [place] [facility] [place] [address] (Wo rk) documented as of this encounter Visit Diagnoses Not on filedocumented in this encounter Care Teams Transit Operations Supervisor Relationship Specialty Start Date End Date Theresa Hardy MD PCP - General 05/22/10 03/15/21 [address] [place] TIRSO Conklin [address] documented as of this encounter
--- OUTSIDE RECORDS SUMMARY | 2021-12-03 08:35 | XMS_ITS | Encounter Summary ---
:1970 Author Organization [facility] Address [address] [address] Care Team Providers Name Role Phone Theresa Hardy MD Primary Care Provider Encounter Details Date Type Department Care Team Description 03/18/2005 PN Conversion Only [place] CONVERSIO N Theresa Hardy, [address] [facility] [place] [address] [facility] [address] [place] [address] (Wo rk) Social History Tobacco [...] at Date Recorded Female 02/21/2021 8:36 PM BIOINFORMATICIST documented as of this encounter Plan of Treatment Upcoming Encounters Date Type Specialty Care Team Description 01/02/2022 Appointment Radiology PN Kian Winters, JUANCARLOS [address] [facility] N [address] (Wo rk) 01/04/2022 Appointment Oncology Kian Winters [place], ENRIQUEBS [address] [place] [facility] [place] RAIN N [address] (Wo rk) documented as of this encounter Procedures Procedure Name Priority Date/Time Associated Comments Diagnosis ANATOMICAL PATH Routine 03/18/2005 10:52 AM Resul ts for this LIQUID BASED BIOINFORMATICIST procedure are i n the results section. GLUCOSE Routine 03/18/2005 9:40 AM Results f or this BIOINFORMATICIST procedure are i n the results section. CHOLESTEROL, TOTAL Routine 03/18/2005 9:40 AM Res ults for this AND HDL BIOINFORMATICIST procedure are i n the results section. documented in this encounter Results Pap Smear (03/18/2005 10:52 AM BIOINFORMATICIST) [facility] gist Method Time Signature PAP Smear SEE TEXT No normal HP CONVERSION Liquid Based range Comment: Patient: MARII JOSÉ ? CERVICAL CYTOLOGY REPORT Pathology # ??[id number] ?Date Obtained: ? Date Received: CYTOLOGIC IMPRESSION: Negative for intraepithelial lesion or m alignancy. ? AAKASH TIONAL DATA LMP: CLINICAL HIST ?V76.2 LIQUID BASED PAP CERVICAL SPECIMEN ADEQUACY: ?? Satisfactory. ENDOCERVICAL CELLS: ??Present. Verified 03/21/05 by: ??S_V ?(electronic signature) Specimen (Source) Anatomical Collection Method Collection Time Re ceived Time Location / / Volume Laterality 03/18/2005 10:52 AM BIOINFORMATICIST Theresa Hardy MD LAB_1 Performing Organization Address City/[facility]/ZIP Code Phon e Number HP CONVERSION Cholesterol, Total and HDL (03/18/2005 9:40 AM BIOINFORMATICIST) Analysis Performed At Patho logist Time Signature Cholesterol/HDL 3.4 No normal HP CONVERSION Ratio Screen range Cholesterol 175 <200 mg/dL HP CONVERSION HDL Cholesterol 51 40 - 60 HP CONVERSION mg/dL Specimen (Source) Anatomical Collection Method Collection Time Re ceived Time Location / / Volume Laterality 03/18/2005 9:40 AM BIOINFORMATICIST Theresa Hardy MD LAB_1 Performing Organization Address City/[facility] Code Phon e Number HP CONVERSION Glucose (03/18/2005 9:40 AM BIOINFORMATICIST) P athologist Signature Lab Glucose 93 60 - 100 HP CONVERSION mg/dL Specimen (Source) Anatomical Collection Method Collection Time Re ceived Time Location / / Volume Laterality 03/18/2005 9:40 AM BIOINFORMATICIST Theresa Hardy MD LAB_1 Performing Organization Address City/[facility]/ZIP Code Phon e Number HP CONVERSION documented in this encounter Visit Diagnoses Not on filedocumented in this encounter Care Teams Senior Examiner Relationship Specialty Start Date End Date Theresa Hardy MD PCP - General 05/22/10 03/15/21 [address] [place] TIRSO Conklin [address] documented as of this encounter
--- OUTSIDE RECORDS SUMMARY | 2021-12-03 08:36 | XMS_ITS | Encounter Summary ---
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 documented as of this encounter Plan of Treatment Upcoming Encounters Date Type Specialty Care Team Description 01/02/2022 Appointment Radiology PN Kian Winters MBBS [address] [facility] [place] N [address] (Opal osman) 01/04/2022 Appointment Oncology Kian Winters MBBS 39[address] [facility] [place] N [address] (Opal osman) documented as of this encounter Visit Diagnoses Not on filedocumented in this encounter Care Teams Field Operations Manager Relationship Specialty Start Date End Date Theresa Hardy MD PCP - General 05/22/10 03/15/21 [address] [place] TIRSO Conklin [address] documented as of this encounter
--- OUTSIDE RECORDS SUMMARY | 2021-12-03 08:36 | XMS_ITS | Encounter Summary ---
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 She is . Recently moved here from [place] in September. Nonsmoker. No alcohol. Caffeine use [...] years time, sooner as needed. TT: CT: [id number] C: 01/09/03 21:50 DOCUMENT: [id number] WORKER documented in this encounter Plan of Treatment Upcoming Encounters Date Type Specialty Care Team Description 01/02/2022 Appointment Radiology PN Kian Winters MBBS 39[address] [facility], N [address] (Wo rk) 01/04/2022 Appointment Oncology Kian Winters MBBS [address] [facility], N [address] (Wo rk) documented as of this encounter Visit Diagnoses Not on filedocumented in this encounter Care Teams Collection Clerk Relationship Specialty Start Date End Date Theresa Hardy MD PCP - General 05/22/10 03/15/21 [address] [place] TIR[place] Conklin [address] documented as of this encounter
--- OUTSIDE RECORDS SUMMARY | 2021-12-03 08:36 | XMS_ITS | Encounter Summary ---
:1970 [facility] Address [address] [place] [address] Care Team Providers Name Role Phone Theresa Hardy MD Primary Care Provider Encounter Details Date Type Department Care Team Description 01/05/2003 PN Conversion Only [place] CONVERSIO N Laureen Bojorquez, [address] [place] [address] 12[address] [place] [address] (Wo rk) Social History Tobacco [...] at Date Recorded Female 02/21/2021 8:36 PM SHOVE UP documented as of this encounter Plan of Treatment Upcoming Encounters Date Type Specialty Care Team Description 01/02/2022 Appointment Radiology PN Kian Winters MBBS 39[address] [facility] [place] N [address] (Wo rk) 01/04/2022 Appointment Oncology Kian Winters JUANCARLOS [place] [address] [place] [address] [place] N [address] (Wo rk) documented as of this encounter Procedures Procedure Name Priority Date/Time Associated Comments Diagnosis ANATOMICAL PATH Routine 01/05/2003 12:31 PM Resul ts for this LIQUID BASED SHOVE UP procedure are i n the results section. GLUCOSE Routine 01/05/2003 10:22 AM Results for this SHOVE UP procedure are i n the results section. LIPID PANEL AND Routine 01/05/2003 10:22 AM Resul ts for this DIRECT LDL(IF SHOVE UP procedure are in NEEDED) the results section. documented in this encounter Results Pap Smear (01/05/2003 12:31 PM SHOVE UP) [facility] gist Method Time Signature PAP Smear SEE TEXT No normal HP CONVERSION Liquid Based range Comment: Patient: MARII JOSÉ ? CERVICAL CYTOLOGY REPORT Pathology # ??[id number] ?Date Obtained: ? Date Received: CYTOLOGIC IMPRESSION: Negative for intraepithelial lesion or m alignancy. ? AAKASH TIONAL DATA LMP: ?12-22-02 CLINICAL HIST ? PREV NORM 11-18 ELSE WHERE LIQUID BASED PAP CERVICAL SPECIMEN ADEQUACY: ?? Satisfactory. ENDOCERVICAL CELLS: ??Present. Verified 01/14/03 by: ??TSC ?(electronic signature) Specimen (Source) Anatomical Collection Method Collection Time Re ceived Time Location / / Volume Laterality 01/05/2003 12:31 PM SHOVE UP Laureen Bojorquez MD LAB_1 Performing Organization Address City/State/ZIP Code Phon e Number HP CONVERSION Lipid Panel and Direct LDL(If Needed) (01/05/2003 10:22 AM SHOVE UP) Patholo gist Method Time Signature Length Of [...] / / Volume Laterality 01/05/2003 10:22 AM SHOVE UP Laueren Bojorquez MD LAB_1 Performing Organization Address City/State/ZIP Code Phon e Number HP CONVERSION (ABNORMAL) Glucose (01/05/2003 10:22 AM SHOVE UP) P athologist Signature Length Of Fast 9.5 Hours HP CONVERSION Lab Glucose 111 (H) 60 - 109 HP CONVERSION mg/dL Specimen (Source) Anatomical Collection Method Collection Time Re ceived Time Location / / Volume Laterality 01/05/2003 10:22 AM SHOVE UP Laureen Bojorquez MD LAB_1 Performing Organization Address City/State/ZIP Code Phon e Number HP CONVERSION documented in this encounter Visit Diagnoses Not on filedocumented in this encounter Care Teams Employee Communications Manager Relationship Specialty Start Date End Date Theresa Hardy MD PCP - General 05/22/10 03/15/21 [address] [place] ITRSO Conklin [address] documented as of this encounter
--- NOTE | 2021-12-03 08:45 | CRLHL7_ITS ---
For Patients: As a result of the Cures Act, medical imaging exams and procedure reports are released immediately into your electronic medical record. You may view this report before your referring provider. If you have questions, please contact your health care provider. RIGHT BREAST DIAGNOSTIC MAMMOGRAM WITH COMPUTER-AIDED DETECTION AND TOMOSYNTHESIS CLINICAL HISTORY: RIGHT breast mass/asymmetry. COMPARISON: 11/26/2021. TECHNIQUE: Digital RIGHT mammogram in 2 projections. Real-time ultrasound imaging of RIGHT breast with imaging documentation. BREAST COMPOSITION: The breasts are heterogeneously dense, which may obscure small masses. FINDINGS: 3D CC/MLO spot compression RIGHT breast mammogram submitted. Persistent ovoid density within the lower outer quadrant RIGHT breast 5 cm from the nipple. No architectural distortion. Previous core needle biopsy changes noted with benign-appearing calcifications related to fat necrosis. Targeted RIGHT breast ultrasound performed in the lower outer quadrant. At 9 o`clock 5 cm from the nipple there is a circumscribed anechoic cyst with increased through-transmission at posterior measuring 1.0 x 1.7 x 1.8 cm. IMPRESSION: Simple cyst RIGHT breast 9 o`clock 5 cm from the nipple measuring 1.8 cm. No evidence of malignancy. RECOMMENDATIONS: Annual BILATERAL screening mammography. BI-RADS Category 2: Benign Results and recommendations discussed with the patient. Dictated by Abdoulaye Hall MD @ 12/03/2021 9:35:50 AM/philippe be/Dictated by: Abdoulaye Hall MD @ 12/03/2021 9:35:00 AM (Electronically Signed)
--- NOTE | 2021-12-03 09:15 | CRLHL7_ITS ---
For Patients: As a result of the Century Cures Act, medical imaging exams and procedure reports are released immediately into your electronic medical record. You may view this report before your referring provider. If you have questions, please contact your health care provider. Please refer to mammogram report done same day for details of ultrasound. be/Dictated by: Abdoulaye Hall MD @ 12/03/2021 9:35:00 AM (Electronically Signed)
== END 2021-12-03 08:31 | disposition home or self-care (01) ==
LOC: MAMMO 08:30
PROVIDERS: PCP Family Medicine; Visit Provider Family Medicine
DX: N63.10 Unspecified lump in the right breast, unspecified quadrant (principal); N60.01 Solitary cyst of right breast; R92.8 Other abnormal and inconclusive findings on diagnostic imaging of breast
CPT/HCPCS: 76642; 77065; G0279

== ENCOUNTER 2022-03-26 08:01 | Outpatient (CLI) | payer OTHER, SELFPAY ==
[2022-03-26 11:34] LABS: Albumin* 3.8 g/dL (3.3-5.0); Chloride* 112 mmol/L (96-114); Potassium* 3.9 mmol/L (3.6-5.1); Sodium* 140 mmol/L (135-149)
[2022-03-26 11:36] LABS: Creatinine* 1.1 mg/dL (0.5-1.5); Estimated Glomerular Filt Rate 60 ml/min
[2022-03-26 11:37] LABS: Alanine Aminotransferase* 22 U/L (4-35); Alkaline Phosphatase* 83 U/L (40-150); Aspartate Amino Transferase* 29 U/L (12-35); Bilirubin Total* 0.9 mg/dL (0.1-1.5); Blood Urea Nitrogen* 16 mg/dL (7-30); Calcium* 8.8 mg/dL (8.4-10.6); Carbon Dioxide* 22 mmol/L (20-32); Glucose* 108 mg/dL (60-115); Total Protein* 6.4 g/dL (6.0-8.3)
== END 2022-03-26 08:02 | disposition home or self-care (01) ==
PROVIDERS: PCP Family Medicine; Visit Provider Family Medicine
DX: R10.9 Unspecified abdominal pain (principal)
CPT/HCPCS: 80053; 87086

== ENCOUNTER 2022-03-26 12:47 | Outpatient (CLI) | payer OTHER, SELFPAY ==
--- NOTE | 2022-03-26 13:00 | CRLHL7_ITS ---
For Patients: As a result of the Century Cures Act, medical imaging exams and procedure reports are released immediately into your electronic medical record. You may view this report before your referring provider. If you have questions, please contact your health care provider. INDICATION: Right flank pain. TECHNIQUE: CT abdomen and pelvis without contrast. COMPARISON: 01/08/2021. FINDINGS: Lower chest: Minimal atelectasis Liver: Normal in size and attenuation. No suspicious masses. Gallbladder and bile ducts: No stones or inflammation. No biliary dilatation. Pancreas: Unremarkable. No mass or inflammation. Spleen: Normal in size. No masses. Adrenal glands: Normal in size. No nodules. Kidneys: A 5 millimeter stone in the distal right ureter results in moderate hydronephrosis. Additional small bilateral nonobstructing renal calculi. No left-sided hydronephrosis. GI tract: No bowel obstruction or focal bowel wall thickening. Normal appendix. Colonic diverticulosis without evidence of acute diverticulitis. Vasculature: Abdominal aorta is normal in caliber. Lymph nodes: No lymphadenopathy. Peritoneum/Abdominal Wall: Unremarkable. No sign of mass or infiltration. No free air or significant free fluid. Pelvis: Unremarkable. No pelvic masses. IUD in place. Bones: Unremarkable for age. IMPRESSION: 1. 5 millimeter stone in the distal right ureter results in moderate right hydronephrosis. 2. Additional small bilateral nonobstructing renal calculi. 3. Colonic diverticulosis. Please note that all CT scans at this facility use dose modulation, iterative reconstruction, and/or weight-based dosing when appropriate to reduce radiation dose to as low as reasonably achievable. Dictated by Matt Witt MD @ 03/26/2022 1:23:46 PM (Electronically Signed) ?ADDENDUM ----- There is an error in the findings section of the original report. In the findings section, it states that the appendix is normal. The patient is in fact status post appendectomy. No appendix is present. The remainder of the findings section is unchanged. The impressions on the original report are correct and remain unchanged. Dictated by Matt Witt MD @ Mar 27 2022 7:16PM (Electronic Signature)
== END 2022-03-26 12:48 | disposition home or self-care (01) ==
LOC: CT 12:47
PROVIDERS: PCP Family Medicine; Visit Provider Family Medicine
DX: R10.9 Unspecified abdominal pain (principal); N13.2 Hydronephrosis with renal and ureteral calculous obstruction; N20.0 Calculus of kidney; K57.30 Diverticulosis of large intestine without perforation or abscess without bleeding
CPT/HCPCS: 74176

== ENCOUNTER 2022-06-18 08:48 | Outpatient (CLI) | payer OTHER, SELFPAY ==
--- NOTE | 2022-06-18 09:00 | CRLHL7_ITS ---
For Patients: As a result of the Century Cures Act, medical imaging exams and procedure reports are released immediately into your electronic medical record. You may view this report before your referring provider. If you have questions, please contact your health care provider. Indication: FOLLOW UP LUNG CANCER Technique: Noncontrast CT chest Please note that all CT scans at this facility use dose modulation, iterative reconstruction, and/or weight-based dosing when appropriate to reduce radiation dose to as low as reasonably achievable. Comparison: 02/02/2021 Findings: The visualized thyroid is unremarkable. No enlarged mediastinal, hilar or axillary lymph nodes. The breast tissue appears normal. The upper abdomen is within normal limits. Postoperative changes right lower lobectomy. No pleural or pericardial effusion. No infiltrate or edema. No effusion or pneumothorax. No fracture or suspicious osseous lesion. No suspicious pulmonary nodule. Impression: Postop changes right lower lobectomy. No adenopathy or suspicious nodule. Please note that all CT scans at this facility use dose modulation, iterative reconstruction, and/or weight-based dosing when appropriate to reduce radiation dose to as low as reasonably achievable. Dictated by Abdoulaye Hall MD @ 06/18/2022 11:15:27 AM (Electronically Signed)
== END 2022-06-18 08:49 | disposition home or self-care (01) ==
LOC: CT 08:48
PROVIDERS: PCP Family Medicine; Visit Provider Internal Medicine Hematology & Oncology
DX: C34.31 Malignant neoplasm of lower lobe, right bronchus or lung (principal)
CPT/HCPCS: 71250

== ENCOUNTER 2022-11-27 07:58 | Outpatient (CLI) | payer OTHER, SELFPAY ==
--- NOTE | 2022-11-27 15:20 | CRLHL7_ITS ---
For Patients: As a result of the Cures Act, medical imaging exams and procedure reports are released immediately into your electronic medical record. You may view this report before your referring provider. If you have questions, please contact your health care provider. BILATERAL SCREENING MAMMOGRAM WITH COMPUTER-AIDED DETECTION AND TOMOSYNTHESIS TECHNIQUE: CC and MLO views were obtained. These mammographic images have been obtained using full-field digital technique. These mammographic images were interpreted with the benefit of computer-aided detection. Breast tomosynthesis was used in this interpretation. COMPARISON FILM: 11/26/21, 11/22/20, 11/22/19. FINDINGS: The breasts are heterogeneously dense, which may obscure small masses. IMPRESSION: There is no radiographic evidence for malignancy. ASSESSMENT: BI-RADS Category 2: Benign RECOMMENDATION: Routine screening mammogram in 1 year. A lay language report of this examination will be provided to the patient. ABDOULAYE HERRERA M.D. Diagnostic Radiologist [email or web address] [email or web address] Transcribed: 11/28/2022, 6:[address]/Dictated by: Abdoulaye Herrera MD @ 11/28/2022 1:23:00 PM (Electronically Signed)
== END 2022-11-27 07:59 | disposition home or self-care (01) ==
LOC: MAMMO 08:00
PROVIDERS: PCP Family Medicine; Visit Provider Obstetrics & Gynecology
DX: Z12.31 Encounter for screening mammogram for malignant neoplasm of breast (principal); R92.2 Inconclusive mammogram
CPT/HCPCS: 77063; 77067

== ENCOUNTER 2022-12-06 11:30 | Outpatient (CLI) | payer OTHER, SELFPAY | END 2022-12-06 11:31 | disposition home or self-care (01) | LOC: NFLDREF 12-09 11:39 | PROVIDERS: PCP Family Medicine; Referring Provider Family Medicine; Visit Provider Family Medicine | DX: E61.1 Iron deficiency (principal) | CPT/HCPCS: 80048; 82607; 82728; 83540; 83550 ==

== ENCOUNTER 2022-12-24 09:05 | Outpatient (CLI) | payer OTHER, SELFPAY | END 2022-12-24 09:06 | disposition home or self-care (01) | PROVIDERS: PCP Family Medicine; Visit Provider Obstetrics & Gynecology | DX: Z01.419 Encounter for gynecological examination (general) (routine) without abnormal findings (principal); D50.9 Iron deficiency anemia, unspecified; E66.9 Obesity, unspecified; Z13.6 Encounter for screening for cardiovascular disorders | CPT/HCPCS: 80061; 84443; 95811 ==

== ENCOUNTER 2023-01-16 07:55 | Outpatient (CLI) | payer OTHER, SELFPAY | END 2023-01-16 07:56 | disposition home or self-care (01) | LOC: NFLDREF 12:11 | PROVIDERS: PCP Family Medicine; Referring Provider Family Medicine; Visit Provider Internal Medicine Nephrology | DX: D50.9 Iron deficiency anemia, unspecified (principal); N20.0 Calculus of kidney | CPT/HCPCS: 80069; 82043; 82306; 82310; 82570; 83970; 84550 ==

== ENCOUNTER 2023-01-20 06:15 | Outpatient (CLI) | payer OTHER, SELFPAY | END 2023-01-20 06:16 | disposition home or self-care (01) | LOC: NFLDREF 01-26 06:02 | PROVIDERS: PCP Family Medicine; Referring Provider Family Medicine; Visit Provider Internal Medicine Nephrology | DX: D50.9 Iron deficiency anemia, unspecified (principal); N20.0 Calculus of kidney | CPT/HCPCS: 82340; 82436; 82507; 83735; 83945; 83986; 84105; 84133; 84300; 84392; 84560 ==

== ENCOUNTER 2023-01-28 07:36 | Outpatient (CLI) | payer OTHER, SELFPAY ==
--- NOTE | 2023-01-28 08:00 | CRLHL7_ITS ---
For Patients: As a result of the Century Cures Act, medical imaging exams and procedure reports are released immediately into your electronic medical record. You may view this report before your referring provider. If you have questions, please contact your health care provider. Indication: RENAL CALCULI F/UP Technique: Non contrast enhanced CT abdomen and pelvis Please note that all CT scans at this facility use dose modulation, iterative reconstruction, and/or weight-based dosing when appropriate to reduce radiation dose to as low as reasonably achievable. Comparison: 11/29/2022 Findings: Left lung base clear. Reticular densities in the anterior right lung. Similar appearance of the right breast tissue. No pleural or pericardial effusion. Normal noncontrast enhanced liver, gallbladder and spleen. Normal pancreas. Adrenal glands normal. Bilateral renal calculi are present, measuring up to 4 millimeters on the right and measuring 3 millimeters on the left, similar to the prior study. Interval clearing of previously noted obstruction involving the left ureter. Clearing of the previously noted distal left ureteral stone. No bladder stone. Right ureter normal. IUD in the uterus. No pelvic mass. No bowel obstruction, free air, free fluid or adenopathy. Appendix is absent. No vertebral body compression fracture. Benign chondroid lesion right proximal femur. Impression: Interval clearing of previously noted obstructing stone from the distal left ureter compared to the prior exam. Stable nonobstructing stones within both kidneys. Please note that all CT scans at this facility use dose modulation, iterative reconstruction, and/or weight-based dosing when appropriate to reduce radiation dose to as low as reasonably achievable. Dictated by Abdoulaye Hall MD @ 01/29/2023 1:29:11 PM (Electronically Signed)
== END 2023-01-28 07:37 | disposition home or self-care (01) ==
LOC: CT 07:36
PROVIDERS: PCP Family Medicine; Visit Provider Internal Medicine Nephrology
DX: N20.0 Calculus of kidney (principal)
CPT/HCPCS: 74176

== ENCOUNTER 2023-02-05 07:58 | Outpatient (CLI) | payer OTHER, SELFPAY | END 2023-02-05 07:59 | disposition home or self-care (01) | PROVIDERS: PCP Family Medicine; Visit Provider Family Medicine | DX: Z00.00 Encounter for general adult medical examination without abnormal findings (principal); D50.9 Iron deficiency anemia, unspecified; E66.9 Obesity, unspecified | CPT/HCPCS: 82728; 83540; 83550 ==

== ENCOUNTER 2023-04-17 08:42 | Outpatient (CLI) | payer OTHER, SELFPAY | END 2023-04-17 08:43 | disposition home or self-care (01) | LOC: NFLDREF 05-02 11:53 | PROVIDERS: PCP Family Medicine; Referring Provider Family Medicine; Visit Provider Internal Medicine Nephrology | DX: N20.0 Calculus of kidney (principal) | CPT/HCPCS: 80069 ==

== ENCOUNTER 2023-04-30 14:29 | Outpatient (CLI) | payer OTHER, SELFPAY | END 2023-04-30 14:30 | disposition home or self-care (01) | LOC: NFLDREF 14:29 | PROVIDERS: PCP Family Medicine; Visit Provider Family Medicine | DX: R10.11 Right upper quadrant pain (principal) | CPT/HCPCS: 80053 ==

== ENCOUNTER 2023-05-02 07:05 | Outpatient (CLI) | payer OTHER, SELFPAY ==
--- NOTE | 2023-05-02 07:15 | US_ITS ---
Patient: MARII Ramesh ESTEFANÍA Facility:?[facility] Patient ID:?[id number] Site Patient ID:?[id number]. Site :?[id number] Study:?US-Abdomen RUQ-05/02/2023 8:05:28 AM Ordering Physician:Nicole Garvey Final Report: INDICATION: Abdominal pain COMPARISON: CT 01/28/2023 TECHNIQUE: Real time wooten scale imaging and color Doppler analysis was performed of the right upper quadrant. FINDINGS: The patient`s liver is of normal size and has uniform echogenicity. There is a normal appearance of the visualized hepatic IVC and proximal abdominal aorta. There is no evidence of ascites. The gallbladder is of normal size and there is no evidence of intraluminal stones or sludge. The gallbladder wall measures 1.7 mm in thickness. The common bile duct is of normal size and measures 3.4 mm in diameter at the level of the boogie hepatis. The visualized pancreas appears normal. There is no evidence of a stone or hydronephrosis within the right kidney. The right kidney measures 9.7 cm in length. IMPRESSION: Normal right upper quadrant ultrasound. Dictated by Abdoulaye Hall MD @ 05/02/2023 10:00:48 AM Signed by:?Abdoulaye Hall MD @05/02/2023 10:00:48 AM (Electronic Signature)
== END 2023-05-02 07:06 | disposition home or self-care (01) ==
LOC: US 07:05
PROVIDERS: PCP Family Medicine; Visit Provider Family Medicine
DX: R10.11 Right upper quadrant pain (principal)
CPT/HCPCS: 76705

== ENCOUNTER 2023-11-04 15:58 | Outpatient (CLI) | payer OTHER, SELFPAY ==
--- NOTE | 2023-11-04 16:00 | CRLHL7_ITS ---
For Patients: As a result of the Century Cures Act, medical imaging exams and procedure reports are released immediately into your electronic medical record. You may view this report before your referring provider. If you have questions, please contact your health care provider. Indication: History of kidney stone Technique: Noncontrast CT abdomen and pelvis Please note that all CT scans at this facility use dose modulation, iterative reconstruction, and/or weight-based dosing when appropriate to reduce radiation dose to as low as reasonably achievable. Comparison: CT 01/28/2023 Findings: Right renal stones are again noted, measuring up to 4.2 millimeters. Stone within the left kidney measures 4.4 millimeters. No bladder stone. Normal ureters. No hydronephrosis or perinephric stranding. Chronic scarring in the periphery of the anterior right lung base. Normal noncontrast enhanced liver and gallbladder. Normal spleen. The pancreas is normal. Normal adrenal glands. IUD is present within the endometrial canal. No adnexal mass. Focal inflammation is present associated with the sigmoid colon measuring 1.0 cm, series 2, image 75. A few scattered diverticula noted. No bowel obstruction, free air or free fluid. Appendix is absent. No adenopathy. No fracture. Small umbilical hernia containing fat. Mild spurring at both hips. Impression: Bilateral nonobstructing kidney stones, not significantly changed. Focal acute sigmoid diverticulitis. Please note that all CT scans at this facility use dose modulation, iterative reconstruction, and/or weight-based dosing when appropriate to reduce radiation dose to as low as reasonably achievable. Dictated by Abdoulaye Hall MD @ 11/05/2023 12:45:27 PM (Electronically Signed)
--- OUTSIDE RECORDS SUMMARY | 2023-11-04 16:01 | XMS_ITS | Referral Summary ---
Author Organization [facility] Address [address] [place] [address] Care Team Providers Care Isolation Washer Name Role Phone Nicole Becker MD Primary Care Provider + Allergies Active Allergy Reactions Criticality Noted Date Comments Amoxicillin GI Disturbance Low 03/26/2022 Amoxicillin-Pot Clavulanate Diarrhea Medium 11/29/2022 Doxycycline Nausea and Vomiting Low 11/29/2022 Got nauseous per pt Cephalexin Diarrhea Low 11/29/2022 Got c-diff per pt Tolerating IV Rocephin on visit dated 12/01/2022 Metronidazole Diarrhea Low 03/18/2005 PN: LW Reaction: GI Upset Penicillin G GI Disturbance Low 04/12/2011 Medications Medication Sig Dispensed Refills Start Date End Date Status tamsulosin (FLOMAX) 0.4 MG capsule Take 1 capsule (0.4 mg) by mouth daily as needed (As needed until kidney stone passes) 10 capsule 11/29/2022 Active ondansetron (ZOFRAN ODT) 4 MG ODT tab Take 1 tablet (4 mg) by mouth every 6 hours as needed for nausea 10 tablet 11/29/2022 Active HYDROcodone-aceta minophen (NORCO) 5-325 MG tablet Take 1-2 tablets by mouth every 6 hours as needed for severe pain or breakthrough pain 12 tablet 11/29/2022 Active beclomethasone HFA (QVAR REDIHALER) 40 MCG/ACT inhaler Inhale 40 mcg into the lungs 2 times daily 11/14/2022 11/14/2023 Active AIMOVIG 70 MG/ML injection Inject 70 mg Subcutaneous every 30 days Administer of the 25th of the month 03/07/2022 Active estradiol (ESTRACE) 1 MG tablet Take 1 tablet by mouth at bedtime Active eszopiclone (LUNESTA) 2 MG tablet Take 2 mg by mouth nightly as needed for sleep Active FLUoxetine (PROZAC) 10 MG capsule Take 10 mg by mouth every morning 12/26/2020 Active omeprazole (PRILOSEC) [address] capsule Take 40 mg by mouth at bedtime 11/14/2022 11/14/2023 Active SUMAtriptan (IMITREX) 100 MG tablet Take 100 mg by mouth at onset of headache for migraine TAKE 1 TABLET BY MOUTH WITH ONSET OF HEADACHE. MAY REPEAT IN 2 HOURS. MAX OF 2 TABLETS IN 24 HOURS 11/21/2022 Active topiramate (TOPAMAX) 100 MG tablet Take 100 mg by mouth 2 times daily 09/24/2022 Active aspirin-acetamino phen-caffeine (EXCEDRIN MIGRAINE) 250-250-65 MG tablet Take 1 tablet by mouth daily as needed for headaches Active Active Problems Problem Noted Date Diagnosed Date Kidney stone 11/30/2022 Social History Tobacco Use Types Packs/Day Years Used Date Smoking Tobacco: Never Assessed Adolescent Education Answer Date Record ed Getting School Help Needed Not on file 11/29 Sex and Gender Information Value Date Recorded Sex Assigned at Not on file Gender Identity Not on file Sexual Orientation Not on file Last Filed Vital Signs Vital Sign Reading Time Taken Comments Blood Pressure 118/64 12/02/2022 11:22 AM CDT Pulse 85 12/02/2022 11:22 AM CDT Temperature 36.7 ??C (98 ??F) 12/02/2022 11:22 AM CDT Respiratory Rate 16 12/02/2022 11:22 AM CDT Oxygen Saturation 98% 12/02/2022 11:22 AM CDT Inhaled Oxygen Concentration - - Weight 77.1 kg (170 lb) 11/30/2022 5:34 PM CDT Height 152.4 cm (5') 11/30/2022 5:34 PM CDT Body Mass Index 33.2 11/30/2022 5:34 PM CDT Plan of Treatment Not on file Medical Devices Implanted Type Area Rcis Device Identifier Shelf Expiration Date Model / Serial / Lot Stent Ureteral Polaris Ultra [id number] - [id number] Implanted:Qty : 1 on 12/01/2022 by Jack Robert MD at [facility] Stent Left: Ureter [employer] [id number] 09/25/2025 [id number] Procedures Procedure Name Priority Date/Time Associated Diagnosis Comments BASIC METABOLIC PANEL Routine 12/02/2022 7:03 AM CDT from Last 3 Months or Most Recently Relevant to Health Maintenance Results * (ABNORMAL) Basic metabolic panel (12/02/2022 7:03 AM CDT) [facility] Sodium 142 135 - 145 mmol/L 12/02/2022 7:40 AM CDT LABORATORY Comment:Reference intervals for this test were updated on 11/12/2022 to more accurately reflect our healthy population. There may be differences in the flagging of prior results with similar values performed with this method. Interpretation of those prior results can be made in the context of the updated reference intervals. Potassium 3.9 3.4 - 5.3 mmol/L 12/02/2022 7:40 AM CDT LABORATORY Chloride 111(H) 98 - 107 mmol/L 12/02/2022 7:40 AM CDT LABORATORY Carbon Dioxide (CO2) 20(L) 22 - 29 mmol/L 12/02/2022 7:40 AM CDT LABORATORY Anion Gap 11 7 - 15 mmol/L 12/02/2022 7:40 AM CDT LABORATORY Urea Nitrogen 15.6 6.0 - 20.0 mg/dL 12/02/2022 7:40 AM CDT LABORATORY Creatinine 1.18(H) 0.51 - 0.95 mg/dL 12/02/2022 7:40 AM CDT LABORATORY GFR Estimate 55(L) >60 mL/min/1. 73m2 12/02/2022 7:40 AM CDT LABORATORY Calcium 8.6 8.6 - 10.0 mg/dL 12/02/2022 7:40 AM CDT LABORATORY Glucose 105(H) 70 - 99 mg/dL 12/02/2022 7:40 AM CDT LABORATORY Blood STRUCTURE OF LEFT UPPER LIMB / Unknown Venipuncture / Unknown 12/02/2022 7:03 AM CDT 12/02/2022 7:10 AM CDT Emmett Crawford MD LAB - BLOOD ORDERABL ES LABORATORY [facility] [address], [address] [place] [address], [facility] [phone] from Last 3 Months or Most Recently Relevant to Health Maintenance Advance Directives For more information, please contact: [phone] * Full Code (Latest Code Status on File) Date Activated Date Inactivated Comments 11/30/2022 8:37 PM 12/02/2022 4:06 PM All basic and advanced life-sustaining interventions are performed as appropriate Question Answer Comments Code status determined by: Discussion with patie nt/ legal decision maker Care Teams Isolation Washer Relationship Specialty Start Date End Date Nicole Becker MD [facility] & [address] [address] PCP - General Family Medicine 11/29/22
--- OUTSIDE RECORDS SUMMARY | 2023-11-04 16:01 | XMS_ITS | Referral Summary ---
Author Organization [facility] Address [address] [place] [address] Care Team Providers Care Cigar Sorter Name Role Phone Unavailable Primary Care Provider Unavailabl e Source Comments Patient records contain information from all sites at [facility]. For routine questions regarding patient records, call [phone] during business hours, M-F 8:00 AM - 5:00 PM Central Time. Record requests for emergency care only can be directed to [phone] at any time.[facility] Medications Medication Sig Dispensed Refills Start Date End Date Status potassium citrate (UROCIT-K) 10 mEq (1,080 mg) ER tablet Take 2 tablets (20 mEq total) by mouth 2 (two) times a day with meals. 360 tablet 3 02/05/2023 Active Social History Tobacco Use Types Packs/Day Years Used Date Smoking Tobacco: Never Assessed Nutrition Answer Date Recorded Nutrition: EVOO Fat Source Unknown 12/26 Nutrition: Servings of Fruits/Vegetables per Day Not on file 12/26/2022 Dental Answer Date Recorded Dental: Regular Dentist Unknown 12/27/19 23 Sex and Gender Information Value Date Recorded Sex Assigned at Not on file Gender Identity Not on file Sexual Orientation Not on file Plan of Treatment Not on file
--- OUTSIDE RECORDS SUMMARY | 2023-11-04 16:01 | XMS_ITS | Encounter Summary ---
Author Organization [facility] Address [address] [place] [address] Care Team Providers Care Engine Emission Technician Name Role Phone David Choudhury MD Primary Care Provider [phone] Reason for Referral * Procedure/Equipment (Routine) - Incomplete Specialty Diagnoses / Procedures Referred By Contac t Referred To Contact Diagnoses Malignant neoplasm of lung, unspecified laterality, unspecified part of lung (HRC) Procedures CT Chest WO IV Cont Kian Winters MBBS [address] [place] [address] Referral ID Status Reason Start Date Expiration Date V isits Requested Visits Authorized [id number] Incomplete 08/08/2023 11/06/2024 1 1 Reason for Visit * Reason Comments FOLLOW-UP,ONCOLOGY Encounter Details Date Type Department Care Team (Late st Contact Info) Description 08/08/2023 1:00 PM CDT Office Visit [facility] [place], [place] [id number] Kian Winters MBBS [facility] [place] [address] Malignant neoplasm of lung, unspecified laterality, unspecified part of lung (HRC) (Primary Dx); History of iron deficiency; Iron deficiency anemia, unspecified iron deficiency anemia type Social History Tobacco Use Types Packs/Day Years Used Date Smoking Tobacco: Never Smokeless Tobacco: Never Alcohol Use Standard Drinks/Week Comments Not Currently 0 (1 standard drink = 0.6 oz pur e alcohol) rare usage Sex and Gender Information Value Date Recorded Sex Assigned at Female 02/21/2021 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 Gender Identity Female 02/21/2021 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 Sexual Orientation Not on file documented as of this encounter Last Filed Vital Signs Vital Sign Reading Time Taken Comments Blood Pressure 127/77 08/08/2023 12:58 PM CDT Pulse 74 08/08/2023 12:58 PM CDT Temperature 36.8 ??C (98.3 ??F) 08/08/2023 12:58 PM C DT Respiratory Rate - - Oxygen Saturation - - Inhaled Oxygen Concentration - - Weight 73.5 kg (162 lb) 08/08/2023 12:58 PM CDT Height - - Body Mass Index 31.64 07/18/2023 10:48 AM CDT documented in this encounter Patient Instructions * Patient Instructions* Kian Winters MBBS - 08/08/2023 1:00 PM CDT Marii José, It was nice to see you in clinic today! Scheduling/instructions: MD visit in 1 year: CBC and ferritin 2-3 days prior, CT chest 2-3 days prior Please call with any questions or concerns. The clinic phone number for use during both clinic hours and after hours is [phone]. Sincerely, Dr. Kian Winters Hematology/[facility] documented in this encounter Progress Notes * Kian Winters MBBS - 08/08/2023 1:00 PM CDT NAME: MARII JOSÉ HEMATOLOGY ONCOLOGY CLINIC VISIT DATE OF VISIT: 08/08/2023 : 1970 REASON FOR VISIT: Adenocarcinoma of the right lung, AJCC prognostic group IA3, pT1c pN0 cM0 History of iron-deficiency anemia HISTORY OF PRESENTING ILLNESS: Ms. Marii José is a pleasant 53-year-old female with right-sidedlung cancer, being evaluated in Oncology Clinic. Please refer to my consultation note from 03/01/2021 and my most recent follow-up note from 12/20/2022 for details regarding her history and presentation. 1. She had been in her usual state of health, but on 02/02/2021, she developed a syncopal episode while obtaining a pedicure. Shortly prior to the pedicure she had donated blood, but she had been donating blood periodically for several years and had never experienced a similar episode previously. She was evaluated at the [facility] Emergency Room. She was noted to have an elevated D-dimer, and a CT pulmonary angiogram was ordered. There was no pulmonary embolus, but she was noted to have a right lower lobe lung mass. She was referred to Pulmonary Medicine and evaluated by Dr. Slaughter. She was set up for a CT-guided biopsy of the right lung mass on 02/22/2021. This was consis tent with a low-grade adenocarcinoma. A PET scan was obtained on 02/26/2021. She was noted to have a 2.5 x 1.5 cm right lower lobe nodule, intensely hypermetabolic with an SUV of 11. There were no hypermetabolic thoracic lymph nodes. She did have a few tiny hypermetabolic dermal foci thought to be n onspecific. 2. She was evaluated by Dr. Hull from thoracic surgery. On 03/16/2021 she underwent a right lower lobectomy with a mediastinal and hilar lymph node dissection, she also underwent a partial right upper lobe wedge resection to achieve negative margins. She was found to have a 2.7 cm grade 2 adenocarcinoma involving the right lower lobe, unifocal, no lymphovascular invasion, negative margins. 0/9 lymph nodes were involved, these included the 2R upper paratracheal, 9R pulmonary ligament lymph nodes, 10R hilar lymph nodes, 13R abd 14 R (segmental and subsegmental lymph nodes) and station 7 subcarinal lymph nodes. The AJCC prognostic stage group was IA3, pT1c,pN0,cM0, and adjuvant chemotherapy was not recommended but a plan was made to continue with clinical and radiologic surveillance. INTERIM HISTORY: At today's visit, from the lung cancer standpoint she does not have any major new symptoms. She does however have a bit of a bronchitis, reports that she had a low-grade fever and a productive cough, was seen in urgent can given albuterol and azithromycin, currently her symptoms are improving. Apart from that she had been doing well. Her appetite has been good. No fevers, no abdominal pain or diarrhea. No blood in the stool. Of note, she had had a workup for iron-deficiency anemia, see discussion below. PAST HISTORY: 1. Migraines. 2. Ureteric stone, status post lithotripsy. 3. Appendectomy in December 2020. MEDICATIONS: Reviewed. SOCIAL HISTORY: Does not smoke and has never smoked. Lives with in [place]. They have 3 children. 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 FAMILY HISTORY: Her father had developed non-Hodgkin lymphoma. Her paternal uncle who was a smoker had developed lung cancer. PHYSICAL EXAM: Pleasant 53-year-old female, appears well, does not appear to be in acute medical distress. Blood pressure 127/77, pulse 74, temperature 98.3 ??F (36.8 ??C), temperature source Oral, weight 162 lb (73.5 kg). HEENT: No scleral icterus. No oral thrush. LYMPH: No palpable lymph nodes in the neck or axilla. HEART: Regular rate and rhythm, no rub or gallop. LUNGS: Bilateral vesicular breath sounds, no rales. ABDOMEN: No abdominal tenderness, no hepatosplenomegaly. EXTREMITIES: No leg edema. NEURO: She is alert and oriented. LABS: Lab Results Component Value Date WBC 6.1 08/01/2023 White Blood Cell Count 6.9 08/19/2006 RBC 4.42 08/01/2023 Red Blood Cell Count 4.38 08/19/2006 Hemoglobin 14.8 08/01/2023 Hemoglobin 8.4 (L) 12/02/2022 Hemoglobin 14.6 08/19/2006 HCT 44.2 08/01/2023 Hematocrit 43.2 08/19/2006 MCV 100.0 08/01/2023 Mean Corpuscular Volume 98.5 08/19/2006 MCH 33.5 (H) 08/01/2023 Mean Corpuscular Hemoglobin 33.4 08/19/2006 MCHC 33.5 08/01/2023 Mean Corpuscular Hemoglobin Conc Bibb 33.9 08/19/2006 RDW 11.9 08/01/2023 RDW 11.8 08/19/2006 Platelets 158 08/01/2023 Platelet Count 193 08/19/2006 Neutrophil Absolute 4.0 08/01/2023 Neutrophils Absolute Count 4.7 08/19/2006 Neutrophil 67.5 08/19/2006 Lymphocyte Absolute 1.4 08/01/2023 Monocyte Absolute 0.4 08/01/2023 Eosinophil Absolute 0.1 08/01/2023 Basophil Absolute 0.0 08/01/2023 Immature Granulocyte % 0.3 08/01/2023 Lab Results Component Value Date AST (SGOT) 22 08/01/2023 Aspartate Aminotransferase 21 08/19/2006 Alkaline Phosphatase 65 08/01/2023 Alk Phos 79 08/17/2004 Bilirubin, Total 0.7 08/01/2023 Bilirubin Total 1.1 08/19/2006 Calcium 9.3 08/01/2023 Creatinine 1.01 08/01/2023 Creatinine 1.51 (H) 12/01/2022 Creatinine Serum 1.0 01/04/2005 GFR, Estimated >60 08/01/2023 GFR Estimate 41 (L) 12/01/2022 Ferritin 78 IMAGING: CT chest from 08/01/23: IMPRESSION: 1. Stable postoperative changes from a right lower lobectomy. 2. No evidence for metastatic disease in the chest. 3. Stable small solid pulmonary nodules. These pulmonary nodules can be followed up on future imaging exams. 3. Tiny nonobstructive calyceal stones in the kidneys. ASSESSMENT AND PLAN: This is a 53-year-old female with a low-grade carcinoma of the right lower lobe of the lung, being evaluated in Oncology Clinic. [...] biopsied on 02/22/2021, consistent with a low-grade adenocarcinoma.Her PET scan on 02/28/2021 revealed a 2.5 cm hypermetabolic lung mass in the right lower lobe, withno metabolic adenopathy and no distant metastases. On 03/16/2021 she underwent a right lower lobectomy with a mediastinal and hilar lymph node dissection, she also underwent a partial right upper lobe wedge resection to achieve negative margins. She was found to have a 2.7 cm grade 2 adenocarcinomainvolving the right lower lobe, unifocal, no lymphovascular invasion, negative margins. 0/9 lymph nodes were involved, these included the 2R upper paratracheal, 9R pulmonary ligament lymph nodes, 10Rhilar lymph nodes, 13R abd 14 R (segmental and subsegmental lymph nodes) and station 7 subcarinal lymph nodes. The AJCC prognostic stage group was IA3, pT1c,pN0,cM0. Adjuvant chemotherapy was not recommended, and a plan was made to continue with clinical and radiologic surveillance. I had a lengthy discussion with her at today's visit, we reviewed her clinical course thus far. Reviewed her CT findings as discussed above. She has stable postoperative changes in the right lung andcontinues to have some small stable sub 5 mm pulmonary nodules. There is no evidence of recurrent disease. From a clinical standpoint she does not have any new concerns, and she is currently greater than 2 years out from surgery. We will continue with annual CT scans of the chest in follow-up, and as such I will bring her back to clinic in [address] with a CT chest prior to the visit. She wasin agreement with the plan. 2. Iron-deficiency anemia: A few months ago she had had some issues with kidney stones, and at an outside ER had some labs performed and had been noted to be anemic with a hemoglobin of 9.8. Her ferritin was in the 20-30 range. She was evaluated by GI, her colonoscopy was unremarkable, on her EGD she was noted to have some gastric ulcers. Was placed on omeprazole. She did have a recent follow-up EGD, it does appear that the ulcers are healing. She had been on oral iron supplementation. I did review with her that currently her hemoglobin is in the normal range and her ferritin is greater than 70. She can discontinue the oral iron. She had also previously been a blood donor, I suggested that she probably not donate blood for at least the next 12 months. She was in agreement with the plan. 3. Return to clinic in 1 year's time with a CBC and ferritin and a CT chest prior to the visit. All these recommendations were reviewed at length. Extensive counseling was provided. Total time including a detailed pre visit review of her chart, a review of her labs pertaining to her iron-deficiency anemia, a review of Gastroenterology endoscopy notes over the last 3 months, a discussion of the plan for the lung cancer and the iron-deficiency anemia, and subsequently the time to document this note was 30 minutes. documented in this encounter Plan of Treatment Scheduled Orders Name Type Priority Associated Diagnoses Orde r Schedule CT Chest WO IV Cont Imaging New Routine Malignant neoplasm of lung, unspecified laterality, unspecified part of lung (HRC) Expected: 08/08/2023 (Approximate), Expires: 08/07/2024 Complete Blood Count - with Diff - in 12 months Lab STAT Malignant neoplasm of lung, unspecified laterality, unspecified part of lung (HRC) Iron deficiency anemia, unspecified iron deficiency anemia type Expected: 07/24/2024, Expires: 10/07/2024 Ferritin - in 12 months Lab STAT Malignant neoplasm of lung, unspecified laterality, unspecified part of lung (HRC) Iron deficiency anemia, unspecified iron deficiency anemia type Expected: 07/24/2024, Expires: 10/07/2024 documented as of this encounter Visit Diagnoses Diagnosis Malignant neoplasm of lung, unspecified laterality, unspecified part of lung (HRC)- Primary History of iron deficiency Personal history of diseases of blood and blood-forming organs Iron deficiency anemia, unspecified iron deficiency anemia type documented in this encounter Care Teams Engine Emission Technician Relationship Specialty Start Date End Date David Choudhury MD [address] [place] [address] PCP - General Family Practice 03/16/21 documented as of this encounter
--- OUTSIDE RECORDS SUMMARY | 2023-11-04 16:01 | XMS_ITS | Encounter Summary ---
Author Organization [employer] Address [address] [place] [address] Care Team Providers Care Edge Trimmer Name Role Phone David Choudhury MD Primary Care Provider [phone] Encounter Details Date Type Department Care Team (Late st Contact Info) Description 08/01/2023 11:00 AM CDT Lab Visit [address] [address] Malignant neoplasm of lower lobe of right lung (HRC) Social History Tobacco Use Types Packs/Day Years Used Date Smoking Tobacco: Never Smokeless Tobacco: Never Alcohol Use Standard Drinks/Week Comments Not Currently 0 (1 standard drink = 0.6 oz pur e alcohol) rare usage Sex and Gender Information Value Date Recorded Sex Assigned at Female 02/21/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 Gender Identity Female 02/21/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 Sexual Orientation Not on file documented as of this encounter Plan of Treatment Not on file documented as of this encounter Procedures Procedure Name Priority Date/Time Associated Diagnosis Comments CBC AND DIFFERENTIAL PANEL STAT 08/01/2023 10:45 AM CDT Malignant neoplasm of lower lobe of right lung (HRC) CREATININE / GFR STAT 08/01/2023 10:4 5 AM CDT Malignant neoplasm of lower lobe of right lung (HRC) COMPLETE BLOOD COUNT-W/DIFF STAT 08/01/2023 10:45 AM CDT Malignant neoplasm of lower lobe of right lung (HRC) FERRITIN STAT 08/01/2023 10:45 AM CDT Malignant neoplasm of lower lobe of right lung (HRC) AST STAT 08/01/2023 10:45 AM CDT Malignant neoplasm of lower lobe of right lung (HRC) CALCIUM STAT 08/01/2023 10:45 AM CDT Malignant neoplasm of lower lobe of right lung (HRC) BILIRUBIN, TOTAL STAT 08/01/2023 10:4 5 AM CDT Malignant neoplasm of lower lobe of right lung (HRC) ALKALINE PHOSPHATASE, TOTAL STAT 08/01/2023 10:45 AM CDT Malignant neoplasm of lower lobe of right lung (HRC) documented in this encounter Results * (ABNORMAL) Complete Blood Count-W/Diff (08/01/2023 10:45 AM CDT) Pathologist [facility] WBC 6.1 3.5 - 10.5 x10(9)/L 08/01/2023 10:48 AM T [facility] RBC 4.42 3.90 - 5.03 x10(12)/L 08/01/2023 10:48 AM T [facility] Hemoglobin 14.8 12.0 - 15.5 g/dL 08/01/2023 10:48 AM [facility] HCT 44.2 34.9 - 44.5 % 08/01/2023 10:48 AM [facility] MCV 100.0 80.0 - 100.0 fL 08/01/2023 10:48 AM [facility] MCH 33.5(H) 27.6 - 33.3 pg 08/01/2023 10:48 AM [facility] MCHC 33.5 31.5 - 35.2 g/dL 08/01/2023 10:48 AM [facility] RDW 11.9 11.9 - 15.5 % 08/01/2023 10:48 AM [facility] Platelets 158 150 - 450 x10(9)/L 08/01/2023 10:48 AM [facility] Automated NRBC 0 <=0 /100 WBC 08/01/2023 10:48 AM [facility] Neutrophil Absolute 4.0 1.7 - 7.0 10(9)/L 08/01/2023 10:48 AM [facility] Lymphocyte Absolute 1.4 1.0 - 4.8 10(9)/L 08/01/2023 10:48 AM [facility] Monocyte Absolute 0.4 0.2 - 0.9 10(9)/L 08/01/2023 10:48 AM [facility] Eosinophil Absolute 0.1 0.0 - 0.5 10(9)/L 08/01/2023 10:48 AM [facility] Basophil Absolute 0.0 0.0 - 0.3 10(9)/L 08/01/2023 10:48 AM [facility] Immature Granulocyte % 0.3 0.0 - 0.5 % 08/01/2023 10:48 AM [facility] Blood Venipuncture / Unknown 08/01/2023 10:45 AM CDT 08/01/2023 10:46 AM CDT Kian Winters [facility] Performing Organization Address City/[facility]/ZIP Co de Phone Number [facility] [address] [place] [address] * Ferritin - in 6 months (08/01/2023 10:45 AM CDT) [facility] Ferritin 78 9 - 204 ng/mL 08/01/2023 4:12 PM CDT [facility] Blood Venipuncture / Unknown 08/01/2023 10:45 AM CDT 08/01/2023 10:46 AM CDT Kian Winters [facility] [address] [place], [place] [address] * Creatinine / GFR (08/01/2023 10:45 AM CDT) Creatinine 1.01 0.55 - 1.02 mg/dL 08/01/2023 11:22 AM CDT [facility] GFR, Estimated >60 >60 mL/min/1.7 3m2 08/01/2023 11:22 AM CDT [facility] Blood Venipuncture / Unknown 08/01/2023 10:45 AM CDT 08/01/2023 10:46 AM CDT Kian Winters [facility] Performing Organization Address [facility] de Phone Number [facility] [address] [place] [address] * Bilirubin, Total (08/01/2023 10:45 AM CDT) Bilirubin, Total 0.7 0.2 - 1.2 mg/dL 08/01/2023 11:22 AM CDT [facility] Blood Venipuncture / Unknown 08/01/2023 10:45 AM CDT 08/01/2023 10:46 AM CDT [facility] Performing Organization Address [facility] de Phone Number [facility] [address] [place] [address] * Calcium (08/01/2023 10:45 AM CDT) Calcium 9.3 8.4 - 10.4 mg/dL 08/01/2023 11:22 AM CDT [facility] Blood Venipuncture / Unknown 08/01/2023 10:45 AM CDT 08/01/2023 10:46 AM CDT [facility] Performing Organization Address [facility]/ZIP Co de Phone Number [facility] [address] [place] [address] * AST (08/01/2023 10:45 AM CDT) AST (SGOT) 22 10 - 40 U/L 08/01/2023 11:22 AM CDT [facility] Blood Venipuncture / Unknown 08/01/2023 10:45 AM CDT 08/01/2023 10:46 AM CDT Kian Winters [facility] Performing Organization Address [facility] Co de Phone Number [facility] [id number] [place] [phone] * Alkaline Phosphatase, Total (08/01/2023 10:45 AM CDT) Alkaline Phosphatase 65 40 - 150 U/L 08/01/2023 11:22 AM CDT [facility] Blood Venipuncture / Unknown 08/01/2023 10:45 AM CDT 08/01/2023 10:46 AM CDT Kian Winters [facility] Performing Organization Address [facility] Co de Phone Number [address] [phone] documented in this encounter Visit Diagnoses Diagnosis Malignant neoplasm of lower lobe of right lung (HRC) documented in this encounter Care Teams Edge Trimmer Relationship Specialty Start Date End Date David Choudhury MD [address] [place] [address] PCP - General Family Practice 03/16/21 documented as of this encounter
--- OUTSIDE RECORDS SUMMARY | 2023-11-04 16:01 | XMS_ITS | Clinical Summary ---
Author Organization Formerly [facility], 1928–1983 Address [address] [place] [address] Care Team Providers Care Hvac Engineer Name Role Phone David Choudhury MD Primary Care Provider [phone] Source Comments You are receiving this document as you are listed as the primary care provider,follow-up provider, or the patient has been referred to you for consultation.This is in compliance with the Medicare and[facility] Incentive [facility],which states Providers who transition their patient to another setting of careor provider of care or refers their patient to another provider of care shouldprovide summary care record for each transition of care or referral. [facility] Active Allergy Reactions Criticality Noted Date Comments Amoxicillin Gastrointestinal Low 03/26/2022 Amoxicillin-Pot Clavulanate Diarrhea 04/23/2017 Cephalexin Gastrointestinal High 03/12/2017 Doxycycline Other, see comments,Gastrointestina l 04/23/2017 Sunburn Metronidazole 03/18/2005 PN: LW Reaction: GI Upset Other 06/13/2003 PN: LW Other1: -band aid adhesive / redness Medications Medication Sig Dispensed Refills Start Date End Date Status SUMAtriptan (IMITREX) 50 MG tablet Take 100 mg by mouth once as needed (Take 1 tablet by mouth once as needed.). 18 3 05/30/2003 Active hydrocortisone 2.5 % cream Apply 1 Application topically 2 times daily as needed. 30 03/31/2006 Active topiramate (TOPAMAX) 100 MG tablet Take 1 tablet by mouth 2 times daily. LW Addl Instr:Indicated for: Headache 60 5 04/18/2006 Active estradiol (ESTRACE) 1 MG tablet Take 1 Tablet (1 mg) by mouth daily. 12/08/2020 Active FLUoxetine (PROZAC) 10 MG capsule Take 1 Capsule (10 mg) by mouth daily. 12/26/2020 Active hydrOXYzine pamoate (VISTARIL) 25 MG capsule 02/06/2021 Active LORazepam (ATIVAN) 0.5 MG tablet TAKE ONE TABLET BY MOUTH DIRECTED NEEDED 02/05/2021 Active metoprolol succinate (TOPROL XL) 100 MG 24 hour release tablet Take 50 mg by mouth daily. Patient is now taking 50 mg once per day 02/03/2021 Active metoprolol succinate (TOPROL XL) 50 MG 24 hour release tablet Take 50 mg by mouth daily. 02/03/2021 Active ondansetron (ZOFRAN-ODT) 4 MG disintegrating tablet DISSOLVE ONE TABLET BY MOUTH EVERY 6 HOURS NEEDED 11/10/2020 Active betamethasone dipropionate (DIPROSONE) 0.05 % cream APPLY TO AFFECTED AREA(S) TOPICALLY TWO TIMES A DAY NEEDED Active AIMOVIG 70 MG/ML injection INJECT 70MG SUBCUTANEOUSLY ONCE PER MONTH. 03/13/2022 Active eszopiclone (LUNESTA) 2 MG tablet Take 1 Tablet (2 mg) by mouth at bedtime as needed. 10/01/2022 Active beclomethasone (QVAR REDIHALER) 40 MCG/ACT HFA inhaler Inhale 1 Puff (40 mcg) two times a day. Rinse mouth/gargle after use 1 Each 11/14/2022 11/14/19 24 Active Additional Information Patient not taking.Reported on 07/18/2023 IRON, FERROUS GLUCONATE, OR Active famotidine (PEPCID) 10 MG tablet Take 1 Tablet (10 mg) by mouth two times a day. 60 Tablet 11 01/27/2023 Active omeprazole (PRILOSEC) 40 MG capsule Take 1 Capsule (40 mg) by mouth two times a day before meals. 180 Capsule 3 05/06/2023 05/06/19 25 Active ferrous sulfate (FEROSUL) 325 (65 Fe) MG tablet TAKE ONE TABLET BY MOUTH DAILY ONE HOUR BEFORE OR 2 HOURS AFTER A MEAL 30 Tablet 60 06/03/2023 Active galcanezumab-gnlm (EMGALITY) 120 MG/ML injection Inject 1 mL (120 mg) subcutaneously every 4 weeks. Inject 2 PENS SC on the same day the first month then 1 PEN SC once a month. CONTACT neurology clinic with ANY adverse effects or issues. Active azithromycin (ZITHROMAX) 250 MG tablet Take 1 Tablet (250 mg) by mouth daily. 08/04/2023 Active ALBUterol sulfate HFA 108 (90 Base) MCG/ACT inhaler Inhale 2 Puffs every 6 hours as needed for Other, Wheezing or Shortness of Breath. 08/04/2023 Active Active Problems Problem Noted Date Diagnosed Date Malignant neoplasm of lower lobe of right lung 0 03/09/2021 Overview (03/09/2021): Added automatically from request for surgery [id number] Impaired glucose tolerance test 03/07/2004 Overview (10/09/2016): Glucose Intolerance (Impaired Tolerance) Contact dermatitis and eczema 03/07/2004 Overview (10/09/2016): Eczema Absence of menstruation 03/07/2004 Overview (10/09/2016): LW Modifier: on ocp ; Amenorrhea Chronic Anovulatory Calculus of ureter 03/07/2004 Overview (10/09/2016): Ureterolithiasis Impaired glucose tolerance test 03/07/2004 Overview (10/09/2016): Glucose Intolerance (Impaired Tolerance) Resolved Problems Problem Noted Date Diagnosed Date Resolved Date Migraine 03/07/2004 04/12/2005 Overview (10/09/2016): Migraine NOS Encounters Date Type Department Care Team Description 08/08/2023 1:00 PM CDT Office Visit [facility] [address] [place] [address]. [place] [address] Kian Winters MBBS Malignant neoplasm of lung, unspecified laterality, unspecified part of lung (HRC) (Primary Dx); History of iron deficiency; Iron deficiency anemia, unspecified iron deficiency anemia type from Last 3 Months Immunizations Name Administration Dates Next Due Flu Vac Preserv Free (3+yrs) 11/11/2009, 10/20/2008,11/20/2006,11/20/2005 ,12/25/2004,01/24/2004 Pfizer Bivalent 12+ 11/14/2021 Pfizer COVID-19 12+ 11/18/2022 Pfizer Monovalent 12+ Purple Top 05/29/2021,10/19,02/29/2020,02/09/2020 Td 03/18/2005,02/17/1996 Family History Relation Name Status Comments Paternal Uncle Other lung cancer Social History Tobacco Use Types Packs/Day Years Used Date Smoking Tobacco: Never Smokeless Tobacco: Never Alcohol Use Standard Drinks/Week Comments Not Currently 0 (1 standard drink = 0.6 oz pur e alcohol) rare usage Sex and Gender Information Value Date Recorded Sex Assigned at Female 02/21/2021 8:36 PM JAVA PROGRAMMING PROFESSOR Gender Identity Female 02/21/2021 8:36 PM JAVA PROGRAMMING PROFESSOR Sexual Orientation Not on file Last Filed Vital Signs Vital Sign Reading Time Taken Comments Blood Pressure 127/77 08/08/2023 12:58 PM CDT Pulse 74 08/08/2023 12:58 PM CDT Temperature 36.8 ??C (98.3 ??F) 08/08/2023 12:58 PM C DT Respiratory Rate 16 07/18/2023 11:30 AM CDT Oxygen Saturation 94% 07/18/2023 11:30 AM CDT Inhaled Oxygen Concentration - - Weight 73.5 kg (162 lb) 08/08/2023 12:58 PM CDT Height 152.4 cm (5') 07/18/2023 10:48 AM CDT Body Mass Index 31.64 07/18/2023 10:48 AM CDT Plan of Treatment Health Maintenance Due Date Last Done Comments Hep C Screening (Preventive Services) 1970 Mammogram 1970 HIV Screening (Preventive Services) 1986 Adult Preventive Visit 1988 HepB (1) 1989 Cervical Cancer Screening Due 04/01/2006 03/31/2006, 03/18/2005, 03/07/2004, Additional history exists Cholesterol 2015 03/31/2006, 02/19, 01/05/2003 COVID-19 Vaccine ( season) 2023 11/18/2022, 11/14/2021, 05/29/2021, Additional history exists Influenza (#1) 2023 11/18/2022, 10/19, 11/15/2020, Additional history exists Diabetes Screening- (based on age and BMI) 11/29/2025 11/29/2022, 03/31/2006, 03/07/2004 DTaP/Tdap/Td (3 - Tdap) 10/26/2028 10/27/19, 11/10/2013, 03/18/2005, Additional history exists Colonoscopy 05/05/2033 05/06/2023 HepA Aged Out 10/03/2011, 03/27/2011 No lo nger eligible based on patient's age to complete this topic Zoster/Shingles Completed 01/28/2022, 11/27/2021 Hib Aged Out No longer eligi ble based on patient's age to complete this topic IPV (Polio) Aged Out No longer eligi ble based on patient's age to complete this topic MCV4 Aged Out No longer eligi ble based on patient's age to complete this topic Pneumococcal Aged Out No longer eligi ble based on patient's age to complete this topic Procedures Procedure Name Priority Date/Time Associated Diagnosis Comments ENDOSCOPY, COLON, SCREENING/DIAGNOSTI C Routine 05/06/2023 1:07 PM CDT Iron deficiency anemia, unspecified iron deficiency anemia type HGB A1C Routine 03/31/2006 9:50 AM JAVA PROGRAMMING PROFESSOR LIPID PANEL & DIRECT LDL (IF NEEDED) Routine 03/31/2006 9:50 AM JAVA PROGRAMMING PROFESSOR ANATOMICAL PATH LIQUID BASED Routine 03/31/2006 7:31 AM JAVA PROGRAMMING PROFESSOR from Last 3 Months or Most Recently Relevant to Health Maintenance Results * Endoscopy, Colon, Screening/Diagnostic (05/06/2023 1:07 PM CDT) Anatomical Region Laterality Modality Other 05/06/2023 1:07 PM CDT Narrative 05/06/2023 1:07 PM CDT Patient Name: Fifi José Procedure Date: 05/06/2023 1:07 PM Date of : 1970 Admit Type: Outpatient Age: 53 Note Status: Finalized Attending MD: Saúl Kaur , , Procedure: ? Colonoscopy Indications: ? Iron deficiency anemia Providers: ? Saúl Kaur, ? Shahlaolman Reddy Patient Profile: ? Denies any overt GI bleeding. Referring MD: ?Kian Winters Medicines: ? Fentanyl 25 micrograms IV, ? Midazolam 1 mg IV, in addition to ? medication given during EGD. Complications: ? No immediate complications. Procedure: ? Pre-Anesthesia Assessment: ? - Prior to the procedure, a History ? and Physical was performed, and ? patient medications and allergies ? were reviewed. The patient's ? tolerance of previous anesthesia ? was also reviewed. The risks and ? benefits of the procedure and the ? sedation options and risks were ? discussed with the patient. All ? questions were answered, and ? informed consent was obtained. ? Prior Anticoagulants: The patient ? has taken no anticoagulant or ? antiplatelet agents except for ? NSAID medication. ASA Grade ? Assessment: II - A patient with ? mild systemic disease. After ? reviewing the risks and benefits, ? the patient was deemed in ? satisfactory condition to undergo ? the procedure. ? After I obtained informed consent, ? the scope was passed under direct ? vision. Throughout the procedure, ? the patient's blood pressure, ? pulse, and oxygen saturations were ? monitored continuously. The ? [id number] was introduced through ? the anus and advanced to the ? terminal ileum, with identification ? of the appendiceal orifice and IC ? valve. The colonoscopy was ? performed without difficulty. The ? patient tolerated the procedure ? well. The quality of the bowel ? preparation was good. The terminal ? ileum, ileocecal valve, appendiceal ? orifice, and rectum were ? photographed. Findings: ? The perianal and digital rectal examinations were ? normal. ? The terminal ileum appeared normal. ? Multiple medium-mouthed and small-mouthed diverticula ? were found in the sigmoid colon, descending colon and ? transverse colon. ? Non-bleeding internal hemorrhoids were found during ? retroflexion. ? The exam was otherwise without abnormality. Moderate Sedation: ? Moderate (conscious) sedation was administered by the ? nurse and supervised by the endoscopist. The ? patient's oxygen saturation, heart rate, blood ? pressure and response to care were monitored. Total ? physician intraservice time was 23 minutes. ? This time is the duration from the initial medication ? administration until the rn community health assists with ? initial maneuvers (biopsy / polypectomy / etc.), or ? if no maneuvers are performed, until the endoscopist ? leaves the room. Impression: ?- The examined portion of the ileum ? was normal. ? - Diverticulosis in the sigmoid ? colon, in the descending colon and ? in the transverse colon. ? - Non-bleeding internal hemorrhoids. ? - The examination was otherwise ? normal. ? - No specimens collected. Recommendation: ?- Discharge patient to home. ? - Resume previous diet. ? - Continue present medications. ? - Repeat colonoscopy in 10 years ? for screening purposes. ? - Return to referring physician. ? - Patient has a contact number ? available for emergencies. The ? signs and symptoms of potential ? delayed complications were ? discussed with the patient. Return ? to normal activities tomorrow. ? Written discharge instructions were ? provided to the patient. ? - Thank you for your kind referral. Procedure Code(s): ? --- Professional --- ? 39114, Colonoscopy, flexible; ? diagnostic, including collection of ? specimen(s) by brushing or washing, ? when performed (separate procedure) ? G0500, Moderate sedation services ? provided by the same physician or ? other qualified health care ? professional performing a ? gastrointestinal endoscopic service ? that sedation supports, requiring ? the presence of an independent ? trained observer to assist in the ? monitoring of the patient's level ? of consciousness and physiological ? status; initial 15 minutes of ? intra-service time; patient age 5 ? years or older (additional time may ? be reported with 08980, as ? appropriate) ? 07076, Moderate sedation; each ? additional 15 minutes intraservice ? time Diagnosis Code(s): ? --- Professional --- ? K64.8, Other hemorrhoids ? D50.9, Iron deficiency anemia, ? unspecified ? K57.30, Diverticulosis of large ? intestine without perforation or ? abscess without bleeding CPT copyright 2021 [employer] [place] [employer]. All rights reserved. The codes documented in this report are preliminary and upon ampoule examiner review may be revised to meet current compliance requirements. Saúl Kaur, 05/06/2023 2:01:33 PM Number of Addenda: 0 Note Initiated On: 05/06/2023 1:07 PM ? Endoscopy Report Procedure Note Saúl Kaur MD - 05/06/2023 Patient Name: Fifi José Procedure Date: 05/06/2023 1:07 PM Date of : 1970 Admit Type: Outpatient Age: 53 Note Status: Finalized Attending MD: Saúl Kaur , , Procedure: Colonoscopy Indications: Iron deficiency anemia Providers: Shahla Trivedi Patient Profile: Denies any overt GI bleeding. Referring MD: Kian Winters Medicines: Fentanyl 25 micrograms IV, Midazolam 1 mg IV, in addition to medication given during EGD. Complications: No immediate complications. Procedure: Pre-Anesthesia Assessment: - Prior to the procedure, a History and Physical was performed, and patient medications and allergies were reviewed. The patient's tolerance of previous anesthesia was also reviewed. The risks and benefits of the procedure and the sedation options and risks were discussed with the patient. All questions were answered, and informed consent was obtained. Prior Anticoagulants: The patient has taken no anticoagulant or antiplatelet agents except for NSAID medication. ASA Grade Assessment: II - A patient with mild systemic disease. After reviewing the risks and benefits, the patient was deemed in satisfactory condition to undergo the procedure. After I obtained informed consent, the scope was passed under direct vision. Throughout the procedure, the patient's blood pressure, pulse, and oxygen saturations were monitored continuously. The [id number] was introduced through the anus and advanced to the terminal ileum, with identification of the appendiceal orifice and IC valve. The colonoscopy was performed without difficulty. The patient tolerated the procedure well. The quality of the bowel preparation was good. The terminal ileum, ileocecal valve, appendiceal orifice, and rectum were photographed. Findings: The perianal and digital rectal examinations were normal. The terminal ileum appeared normal. Multiple medium-mouthed and small-mouthed diverticula were found in the sigmoid colon, descending colon and transverse colon. Non-bleeding internal hemorrhoids were found during retroflexion. The exam was otherwise without abnormality. Moderate Sedation: Moderate (conscious) sedation was administered by the nurse and supervised by the endoscopist. The patient's oxygen saturation, heart rate, blood pressure and response to care were monitored. Total physician intraservice time was 23 minutes. This time is the duration from the initial medication administration until the rn community health assists with initial maneuvers (biopsy / polypectomy / etc.), or if no maneuvers are performed, until the endoscopist leaves the room. Impression: - The examined portion of the ileum was normal. - Diverticulosis in the sigmoid colon, in the descending colon and in the transverse colon. - Non-bleeding internal hemorrhoids. - The examination was otherwise normal. - No specimens collected. Recommendation: - Discharge patient to home. - Resume previous diet. - Continue present medications. - Repeat colonoscopy in 10 years for screening purposes. - Return to referring physician. - Patient has a contact number available for emergencies. The signs and symptoms of potential delayed complications were discussed with the patient. Return to normal activities tomorrow. Written discharge instructions were provided to the patient. - Thank you for your kind referral. Procedure Code(s): --- Professional --- 12163, Colonoscopy, flexible; diagnostic, including collection of specimen(s) by brushing or washing, when performed (separate procedure) G0500, Moderate sedation services provided by the same physician or other qualified health wound care rn performing a gastrointestinal endoscopic service that sedation supports, requiring the presence of an independent trained observer to assist in the monitoring of the patient's level of consciousness and physiological status; initial 15 minutes of intra-service time; patient age 5 years or older (additional time may be reported with 71492, as appropriate) 74210, Moderate sedation; each additional 15 minutes intraservice time Diagnosis Code(s): --- Professional --- K64.8, Other hemorrhoids D50.9, Iron deficiency anemia, unspecified K57.30, Diverticulosis of large intestine without perforation or abscess without bleeding CPT copyright 2021 [employer] [place] [employer]. All rights reserved. The codes documented in this report are preliminary and upon ampoule examiner review may be revised to meet current compliance requirements. Saúl Alemanadalbertobob, 05/06/2023 2:01:33 PM Number of Addenda: 0 Note Initiated On: 05/06/2023 1:07 PM Endoscopy Report Kian BAUER PN GI PROCEDURE ORDE CHITO * Lipid Panel and Direct LDL(If Needed) (03/31/2006 9:50 AM JAVA PROGRAMMING PROFESSOR) Hours Fasting 12.0 Hours HP CONVERSION Cholesterol/HDL Ratio Screen 3.1 No normal range HP CONVERSION Cholesterol 174 <200 mg/dL HP CONVERSION HDL Cholesterol 56 40 - 60 mg/dL HP CONVERSION Triglycerides 111 0 - 149 mg/dL HP CONVERSION LDL Calculated 96 0 - 130 mg/dL HP CONVERSION Comment: 03/31/2006 9:50 AM JAVA PROGRAMMING PROFESSOR Theresa Hardy MD LAB_1 HP CONVERSION * Hgb A1c (03/31/2006 9:50 AM JAVA PROGRAMMING PROFESSOR) HGB A1C 5.4 <6.0 % HP CONVERSION 03/31/2006 9:50 AM JAVA PROGRAMMING PROFESSOR Theresa Hardy MD LAB_1 HP CONVERSION * Pap Smear (03/31/2006 7:31 AM JAVA PROGRAMMING PROFESSOR) PAP Smear Liquid Based SEE TEXT No normal range HP CONVERSION Comment: Patient: FIFI JOSÉ ? CERVICAL CYTOLOGY REPORT Pathology # ??[id number] ?Date Obtained: ? Date Received: CYTOLOGIC IMPRESSION: Negative for intraepithelial lesion or malignancy. Verified 04/02/06 by: ??MB ? (electronic signature) ? ADDITIONAL DATA LMP: CLINICAL HIST LIQUID BASED PAP CERVICAL SPECIMEN ADEQUACY: ?? Satisfactory. ENDOCERVICAL CELLS: ??Present. 03/31/2006 7:31 AM JAVA PROGRAMMING PROFESSOR Theresa Hardy MD LAB_1 Performing Organization Address City/State/[facility] Co de Phone Number HP CONVERSION from Last 3 Months or Most Recently Relevant to Health Maintenance Advance Directives * Full Code (Latest Code Status on File) Date Activated Date Inactivated Comments 03/16/2021 8:09 PM 03/21/2021 4:25 PM Full code in effect for 30 days Care Teams Hvac Engineer Relationship Specialty Start Date End Date David Choudhury MD [address] [place] [address] PCP - General Family Practice 03/16/21
--- OUTSIDE RECORDS SUMMARY | 2023-11-04 16:01 | XMS_ITS ---
Author Organization [facility] Address [address] [place] [address] Care Team Providers Care Regulatory Affairs Coordinator Name Role Phone Unavailable Unavailable Unavailable Surgery Details Not on file Complications Check Surgery Details section. Procedure Estimated Blood Loss Check Surgery Details section. Procedure Findings Check Surgery Details section. Procedure Specimens Taken Check Surgery Details section.
--- OUTSIDE RECORDS SUMMARY | 2023-11-04 16:01 | XMS_ITS | Clinical Summary ---
Author Organization [facility] Address [address] [place] [address] Care Team Providers Care Research Affiliate Name Role Phone Nicole Becker MD Primary [...] 11/30/2022 5:34 PM CDT Plan of Treatment Health Maintenance Due Date Last Done Comments ADVANCE CARE PLANNING 1970 ANNUAL REVIEW OF HM ORDERS 1970 CT COLONOGRAPHY 1970 FIT 1970 FLEX SIG 1970 MAMMO SCREENING 1970 YEARLY PREVENTIVE VISIT 1970 sDNA (Cologuard) 1970 COLONOSCOPY 1980 COLORECTAL CANCER SCREENING 1980 HIV SCREENING 1985 HEPATITIS C SCREENING 1988 PAP 1991 LIPID 2010 PHQ-2 (once per calendar year) 2023 COVID-19 Vaccine ( season) 2023 11/18/2022, 11/14/2021, 05/29/2021, Additional history exists INFLUENZA VACCINE (#1) 2023 2, 11/15/2020, 11/24/2019, Additional history exists GLUCOSE 12/02/2025 12/02/2022, 11/17, 11/30/2022, Additional history exists DTAP/TDAP/TD IMMUNIZATION (3 - Td or Tdap) 10/26/2028 10/26/2018, 11/10/2013, 03/18/2005, Additional history exists HEPATITIS B IMMUNIZATION Completed 008, 02/20/2007, 01/14/2007 ZOSTER IMMUNIZATION Completed 01/28/2022, HPV IMMUNIZATION Aged Out No longer e ligible based on patient's age to complete this topic MENINGITIS IMMUNIZATION Aged Out No l onger eligible based on patient's age to complete this topic Pneumococcal Vaccine: Pediatrics (0 to 5 Years) and At-Risk Patients (6 to 64 Years) Aged Out No longer eligible based on patient's age to complete this topic RSV MONOCLONAL ANTIBODY Aged Out No l onger eligible based on patient's age to complete this topic Medical Devices Implanted Type Area Information Resource Consultant Device Identifier Shelf Expiration Date Model / Serial / Lot Stent Ureteral Polaris Ultra [id number] - [id number] Implanted:Qty : 1 on 12/01/2022 by Jack Robert MD at [facility] Stent Left: [employer] [id number] 09/25/2025 [id number] Procedures Procedure Name Priority Date/Time Associated Diagnosis Comments BASIC METABOLIC PANEL Routine 12/02/2022 7:03 AM CDT from Last 3 Months or Most Recently Relevant to Health Maintenance Results * (ABNORMAL) Basic metabolic panel (12/02/2022 7:03 AM CDT) [facility] [address] Sodium 142 135 - 145 mmol/L 12/02/2022 [...] 3.4 - 5.3 mmol/L 12/02/2022 7:40 AM [facility] Chloride 111(H) 98 - 107 mmol/L 12/02/2022 7:40 AM [facility] Carbon Dioxide (CO2) 20(L) 22 - 29 mmol/L 12/02/2022 7:40 AM [facility] Anion Gap 11 7 - 15 mmol/L 12/02/2022 7:40 AM [facility] Urea Nitrogen 15.6 6.0 - 20.0 mg/dL 12/02/2022 7:40 AM [facility] Creatinine 1.18(H) 0.51 - 0.95 mg/dL 12/02/2022 7:40 AM [facility] LAB[facility] GFR Estimate 55(L) >60 mL/min/1. 73m2 12/02/2022 7:40 AM [facility] Calcium 8.6 8.6 - 10.0 mg/dL 12/02/2022 7:40 AM [facility] Glucose 105(H) 70 - 99 mg/dL 12/02/2022 7:40 AM [facility] Blood STRUCTURE OF LEFT UPPER LIMB / Unknown Venipuncture / Unknown 12/02/2022 7:03 AM CDT 12/02/2022 7:10 AM CDT Emmett Crawford MD LAB - BLOOD ORDERABL ES LABORATORY [facility] [address] floor, [address] [place] [address], [facility] [phone] from Last 3 Months or Most Recently Relevant to Health Maintenance Advance Directives For more information, please contact: [phone] * Full Code (Latest Code Status on File) Date Activated Date Inactivated Comments 11/30/2022 8:37 PM 12/02/2022 4:06 PM All basic and advanced life-sustaining interventions are performed as appropriate Question Answer Comments Code status determined by: Discussion with zoila nt/ legal decision maker Care Teams Research Affiliate Relationship Specialty Start Date End Date Nicole Becker MD [facility] [address] [place] [address] PCP - General Family Medicine 11/29/22
--- OUTSIDE RECORDS SUMMARY | 2023-11-04 16:01 | XMS_ITS | Clinical Summary ---
Author Organization [facility] Address [address] [place] [address] Care Team Providers Care Epic Ambulatory Analysts Name Role Phone Unavailable Primary Care Provider Unavailabl e Source Comments Patient records contain information from all sites at [facility]. For routine questions regarding patient records, call [phone] during business hours, M-F 8:00 AM - 5:00 PM Central Time. Record requests for emergency care only can be directed to [phone] at any time.[facility] Medications Medication Sig Dispensed Refills Start Date [...] Orientation Not on file Plan of Treatment Health Maintenance Due Date Last Done Comments CT Colonography 1970 Cervical Cancer Screening 1970 Cologuard 1970 Colonoscopy 1970 Colorectal Cancer Screening 1970 FIT 1970 HIV Screening 1970 Hepatitis C Screening 1970 Lipid (Cholesterol) Screening 1970 Mammogram 1970 Depression Screening (Annual PHQ-2) 02/17/2023 Influenza Vaccine (#1) 2023 , 11/14/2021, 11/15/2020, Additional history exists Fasting Glucose for Diabetes Screening 12/02/2025 12/02/2022, 11/30/2022, 11/29/2022 DTaP,Tdap,and Td Vaccines (3 - Td or Tdap) 10/26/2028 10/26/2018, 11/10/2013, 03/18/2005, Additional history exists Hepatitis B Vaccines Completed 07/22/2007, 02/20/2007, 01/14/2007 Zoster Vaccines Completed 01/28/2022, 11/27/2021 COVID-19 Vaccine Completed 11/18/2022, , 05/29/2021, Additional history exists Pneumococcal vaccine (0-64 years) Aged Out No longer eligible based on patient's age to complete this topic
--- OUTSIDE RECORDS SUMMARY | 2023-11-04 16:01 | XMS_ITS | Clinical Summary ---
Author Organization [employer] [facility] Address [place], [place] [address] Care Team Providers Care Patient'S Librarian Name Role Phone [facility] Unavailable Unavailable Pcp, No Primary Care Provider Unavailabl e Allergies Active Allergy Reactions Criticality Noted Date Comments Amoxicillin-Pot Clavulanate Diarrhea 04/24/19 18 Doxycycline Other - Describe In Comment Field,Vomiting 04/23/2017 Sunburn Medications Medication Sig Dispensed Refills Start Date End Date Status topiramate (TOPAMAX) 100 mg tablet Take 1 tablet by mouth 2 times daily. 0 04/23/2017 Active SUMAtriptan (IMITREX) 100 mg tablet Take 1 tablet by mouth 2 times daily if needed for Migraine. Give at minimum 2hrs apart. Max Dose: 200mg per 24hrs. 0 04/23/2017 Active Immunizations Name Administration Dates Next Due Hepatitis B (Adult) 07/22/2007,02/20/2007,2006 Social History Tobacco Use Types Packs/Day Years Used Date Smoking Tobacco: Never Smokeless Tobacco: Never Tobacco Cessation:Counseling Given: Yes Sex and Gender Information Value Date Recorded Sex Assigned at Not on file Gender Identity Not on file Sexual Orientation Not on file Obstetrics History Last Filed Vital Signs Vital Sign Reading Time Taken Comments Blood Pressure 110/72 04/23/2017 12:07 PM GUM WORKER Pulse 75 04/23/2017 12:07 PM GUM WORKER Temperature - - Respiratory Rate - - Oxygen Saturation 96% 04/23/2017 12:07 PM GUM WORKER Inhaled Oxygen Concentration - - Weight 78.6 kg (173 lb 4.8 oz) 04/23/2017 12:07 PM GUM WORKER Height - - Body Mass Index - - Plan of Treatment Health Maintenance Due Date Last Done Comments Tdap 1981 Depression screening for age 12+ 1982 HIV for age 15-65 1985 BMI (ht and wt on same day) for age 18+ 1988 Hepatitis C screening for age 18-79 1988 Tetanus booster 1990 Colonoscopy through age 75 2015 Lipids for age 45-75 2015 Mammogram for age 45-75 2015 Zoster (shingles) series for age 50+ (1 of 2) 2020 Pap test for age 21-65 11/14/2022 0, 11/15/2019, 07/06/2014, Additional history exists COVID-19 vaccine series (2022-24 season) 2023 Influenza for age 50-64 10/19/2023 Pneumococcal series for age 6-64 Aged Out No longer eligible based on patient's age to complete this topic Procedures Procedure Name Priority Date/Time Associated Diagnosis Comments PRESS TENDER THIN PREP PAP SCREEN IMAGED Routine 11/15/2019 2:15 PM CDT from Last 3 Months or Most Recently Relevant to Health Maintenance Results * PRESS TENDER THIN PREP PAP SCREEN IMAGED (11/15/2019 2:15 PM CDT) Case Report Gynecologic Cytology Report ? Case: [id number] ? Authorizing Provider: ??Shobha Yen ?Collected: ? 11/15/2019 1415 ? MD Kimberly ? Ordering Location: ? [facility] ?Received: ?11/17/2019 0822 ? First Screen: ?Asmita Doan ? Specimen: ?PRESS TENDER ThinPrep Vial Screening, Cervical/Vaginal ? 11/24/2019 5:31 PM CDT [facility] INTERPRETATION/ RESULT NEGATIVE FOR INTRAEPITHELIAL LESION OR MALIGNANCY (NIL) (none) 11/24/2019 5:31 PM T [facility] IMEN ADEQUACY Satisfactory for evaluation No endocervical component seen 11/24/2019 5:31 PM CDT [facility] HPV REQUEST HPV and PAP 11/24/2019 5:31 PM CDT [facility] Last Pap Date 07/06/2014 11/24/2019 5:31 PM CDT [facility] Last Pap Result NIL 0 5:31 PM CDT [facility] Comment:-HPV Menstrual Status 11/24/2019 5:31 PM CDT [facility] Comment:IUD Additional Information 11/24/2019 5:31 PM CDT [facility] Comment: Interpreted at [facility] - [address], [place] [address] Automated Review Successful 11/24/2019 5:31 PM CDT [facility] Comment:Specimen processed s uccessfully by automated automobile rental representative device, ThinPrep Imaging System, [employer] ANCILLARY TESTING PRESS TENDER HPV Ordered, Please see separate report 11/24/2019 5:31 PM CDT [facility] Note The pap test is a screening technique, not a diagnostic procedure. It is used primarily to screen for squamous cancers and precursor lesions. Published studies have shown that it is subject to both false negative and false positive results. The pap test should not be used as the sole means to diagnose or exclude pre-malignant and malignant lesions. 11/24/2019 5:31 PM CDT [facility] Other (Cervical/Vagina l) 11/15/2019 2:15 PM CDT 11/17/2019 8:22 AM CDT Shobah Yen MD PATHOLOGY/ CYTOLOGY [facility] [employer] [facility] [address] [place] [address], [place] from Last 3 Months or Most Recently Relevant to Health Maintenance Care Teams Patient'S Librarian Relationship Specialty Start Date End Date Pcp, No . PCP - General 04/23/[address] [facility] 03/26/17
--- OUTSIDE RECORDS SUMMARY | 2023-11-04 16:01 | XMS_ITS | Encounter Summary ---
Author Organization [employer] Address [address] [place] [address] Care Team Providers Care Machine Castings Plasterer Name Role Phone David Choudhury MD Primary Care Provider [phone] Reason for Visit * Procedure/Equipment (Routine) - Closed Specialty Diagnoses / Procedures Referred By Maria Luz polanco Referred To Contact Diagnoses Malignant neoplasm of lower lobe of right lung (HRC) Procedures CT Chest WO IV Cont Kian Winters [employer] [address] [place] [address] Referral ID Status Reason Start Date Expiration Date Visits Re quested Visits Authorized [id number] Closed 12/20/2022 03/20/2024 1 1 Encounter Details Date Type Department Care Team (Late st Contact Info) Description 08/01/2023 10:40 AM CDT Ancillary Procedure [facility] [address] [address] Scan [id number] [place] [address] Kian Winters [employer] [address] [place], [place] [address] Malignant neoplasm of lower lobe of right lung (HRC) Social History Tobacco Use Types Packs/Day Years Used Date Smoking Tobacco: Never Smokeless Tobacco: Never Alcohol Use Standard Drinks/Week Comments Not Currently 0 (1 standard drink = 0.6 oz pur e alcohol) rare usage Sex and Gender Information Value Date Recorded Sex Assigned at Female 02/21/2021 8:36 PM BUSINESS COMMUNICATIONS 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 Gender Identity Female 02/21/2021 8:36 PM BUSINESS COMMUNICATIONS INSTRUCTOR Sexual Orientation Not on file documented as of this encounter Plan of Treatment Not on file documented as of this encounter Procedures Procedure Name Priority Date/Time Associated Diagnosis Comments CT CHEST WO IV CONT Routine 08/01/2023 1 0:31 AM CDT Malignant neoplasm of lower lobe of right lung (HRC) documented in this encounter Results * CT Chest WO IV Cont (08/01/2023 10:31 AM CDT) Anatomical Region Laterality Modality Chest, Lung Computed Tomogra phy 08/01/2023 10:2 5 AM CDT Impressions 08/01/2023 12:03 PM CDT COMPARISON: CT chest, 12/20/2022, 06/18/2022, 01/02/2022, and 06/29/2021. TECHNIQUE: Noncontrast images were obtained through the chest. FINDINGS: CHEST WALL AND LOWER NECK: Thyroid gland unremarkable. No abnormal axillary lymph nodes. HEART AND VASCULATURE: Normal heart size. No pericardial effusion. Mild atherosclerotic calcifications of the thoracic aorta No thoracic aortic aneurysm. No significant coronary artery calcifications. MEDIASTINUM: Unremarkable esophagus. No adenopathy. LUNGS AND PLEURAL SPACE: Patent central airways. Postoperative changes from a right lower lobectomy. Mild subpleural reticulation in the right upper lobe. Small solid pulmonary nodules are unchanged. For example, 3 mm solid pulmonary nodule in the posterior left upper lobe, unchanged (series 4, image 22). 5 mm solid pulmonary nodule in the inferior aspect of the right middle lobe is unchanged (series 4, image 64). No pleural effusion. UPPER ABDOMEN: Small calyceal stones in the kidneys including a 3 mm calyceal stone in the interpolar region of the left kidney, unchanged (series 3, image 60). Remainder of the visualized upper abdomen is unremarkable. BONES: Degenerative changes in the spine. No acute osseous abnormality. No suspicious lesion in the bones. IMPRESSION: 1. Stable postoperative changes from a right lower lobectomy. 2. No evidence for metastatic disease in the chest. 3. Stable small solid pulmonary nodules. These pulmonary nodules can be followed up on future imaging exams. 3. Tiny nonobstructive calyceal stones in the kidneys. Narrative Procedure Note Dennis Razo MD - 08/01/2023 IMPRESSION COMPARISON: CT chest, 12/20/2022, 06/18/2022, 01/02/2022, and06/29/2021. TECHNIQUE: Noncontrast images were obtained through the chest. FINDINGS: CHEST WALL AND LOWER NECK: Thyroid gland unremarkable. No abnormalaxillary lymph nodes. HEART AND VASCULATURE: Normal heart size. No pericardial effusion. Mildatherosclerotic calcifications of the thoracic aorta No thoracic aorticaneurysm. No significant coronary artery calcifications. MEDIASTINUM: Unremarkable esophagus. No adenopathy. LUNGS AND PLEURAL SPACE: Patent central airways. Postoperative changesfrom a right lower lobectomy. Mild subpleural reticulation in the rightupper lobe. Small solid pulmonary nodules are unchanged. For example, 3 mmsolid pulmonary nodule in the posterior left upper lobe, unchanged (series4, image 22). 5 mm solid pulmonary nodule in the inferior aspect of theright middle lobe is unchanged (series 4, image 64). No pleuraleffusion. UPPER ABDOMEN: Small calyceal stones in the kidneys including a 3 mmcalyceal stone in the interpolar region of the left kidney, unchanged(series 3, image 60). Remainder of the visualized upper abdomen isunremarkable. BONES: Degenerative changes in the spine. No acute osseous abnormality. Nosuspicious lesion in the bones. IMPRESSION: 1. Stable postoperative changes from a right lower lobectomy. 2. No evidence for metastatic disease in the chest. 3. Stable small solid pulmonary nodules. These pulmonary nodules can befollowed up on future imaging exams. 3. Tiny nonobstructive calyceal stones in the kidneys. Kian BAUER RAD CT documented in this encounter Visit Diagnoses Diagnosis Malignant neoplasm of lower lobe of right lung (HRC) documented in this encounter Care Teams Machine Castings Plasterer Relationship Specialty Start Date End Date David Choudhury MD [address] [place] [address] PCP - General Family Practice 03/16/21 documented as of this encounter
== END 2023-11-04 15:59 | disposition home or self-care (01) ==
LOC: CT 15:59
PROVIDERS: PCP Family Medicine; Visit Provider Internal Medicine Nephrology
DX: N20.0 Calculus of kidney (principal); K57.32 Diverticulitis of large intestine without perforation or abscess without bleeding
CPT/HCPCS: 74176

== ENCOUNTER 2023-11-19 19:13 | Outpatient (CLI) | payer OTHER, SELFPAY ==
--- OUTSIDE RECORDS SUMMARY | 2023-11-19 19:15 | XMS_ITS ---
Author Organization [facility] Address [address] [place] [address] Care Team Providers Care Engineer Byproduct Name Role Phone Unavailable Unavailable Unavailable Surgery Details Not on file Complications Check Surgery Details section. Procedure Estimated Blood Loss Check Surgery Details section. Procedure Findings Check Surgery Details section. Procedure Specimens Taken Check Surgery Details section.
--- OUTSIDE RECORDS SUMMARY | 2023-11-19 19:15 | XMS_ITS | Data Portability ---
Author Organization [place] [facility] Address [address] [place] [address] Care Team Providers Care Glass Worker Name Role Phone PEDRO WINTERS Primary Care Provider [phone] Assessment Encounter Date Assessment Date Assessment LastModified by Organization Details LastModified Time 03/28/2022 03/28/2022 52F with 5 mm right ureteral stone, additional renal stones. Discussed medical expulsive therapy versus surgical intervention including options of ESWL, URS/HLL/stent, and their respective risks/complicatio ns including including but not limited to post-procedure pain or stent pain, infection/UTI/sep sis, hematuria, anesthesia reaction, injury to adjacent structures, and possible need for additional/staged procedure. Her distal ureteral stone would be managed with URS/HLL if she desires surgery. She prefers to proceed with MET at this time. 1. 5 mm right ureteral stone - reviewed outside CT scan, labs, PCP notes - discussed medical expulsive therapy versus surgical intervention - anticipate stone of this size and location may pass spontaneously - continue tamsulosin - continue PRN pain meds-- Tylenol, hydrocodone, toradol; small refill was provided today, though she was advised she may not be able to fill it given she just received Rx for narcotics 2 days ago - strain urine at home, bring stone for analysis if passed, strainer provided today - pt to call if not improving and wanting to move forward with procedure - f/u in ~3 weeks for repeat imaging if stone has not passed - reviewed stone prevention diet - return precautions for ER discussed-- worsening pain, fever/chills, N/V, other concerns 2. Bilateral renal stones - h/o low UO and low citrate on 24-hr urine from 2018 - recommend hydrating with at least 2.5L fluid per day - recommend citrus intake versus supplementation with K citrate; she will try True Lemon/Mi'Kmaq for now - would benefit from repeat 24-hr urine assessment - f/u with Dr. Marie or me in [address] stone protocol Not available 03/28/2022 17:04:05 12/09/2022 12/09/2022 - stent removed - stone prevention diet - can f/u PRN [email or web address] Not available 12/09/2022 10:42:45 Plan of Treatment Reminders Order Date Submit Date Provider Last Modified By Organization Details Last Modified Time Details Appointments None recorded . Lab urinalys is, dipstick 2022 023 [email or web address] [facility], [address], [place], [address], 10:24:05 Referral None recorded . Procedures None recorded . Surgeries None recorded . Imaging None recorded . Medication Orders oxycodon e 5 mg tablet 2022 023 [id number], [id number] [facility], [place], [address], 10:00:18 Patient TargetsNo targets recorded. Patient InstructionsNo instructions recorded. Reason for Referral None Reported. Results Created Date Observation Date Name Description Value Unit Range Abnormal Flag Note LastModifiedBy Organization Detail LastModifiedTime 03/28/1903/28/2022 urina lysis , dipst ick Color-Status Yellow Not Available [facility] [address], [place], [address], 03/28/2022 10:21:37 03/28/1903/28/2022 urina lysis , dipst ick Clarity-Stat us Slight ly Cloudy Not Available [facility] [address], [place], [address], 03/28/2022 10:21:37 03/28/1903/28/2022 urina lysis , dipst ick Ketones-Stat us 15 Not Available [facility] [address], [place], [address], 03/28/2022 10:21:37 03/28/19 23 03/28/2022 urina lysis , dipst ick pH-Status 6.5 Not Available [facility] [address], [place], [address], 03/28/2022 10:21:37 03/28/19 23 03/28/2022 urina lysis , dipst ick Protein-Stat us Not Available [facility] [address], [place], [address], 03/28/2022 10:21:37 03/28/19 23 03/28/2022 urina lysis , dipst ick Nitrates-Sta tus negati ve Not Available [facility] [address], [place], [address], 03/28/2022 10:21:37 03/28/19 23 03/28/2022 urina lysis , dipst ick Blood-Status Trace Not Available [facility] [address], [place], [address], 03/28/2022 10:21:37 03/28/19 23 03/28/2022 urina lysis , dipst ick Leuko-Status Trace Not Available [facility] [address], [place], [address], 03/28/2022 10:21:37 03/28/19 23 03/28/2022 urina lysis , dipst ick Specimen Type Voided Not Available [facility] [address], [place], [address], 03/28/2022 10:21:37 Result Notes None recorded. Problems Name Problem SNOMED Code Status Onset Date Resolution Date Notes Provider Name and Address Organization Details Recorded Time Ureteric stone 30515351 Active 023 Jack irwin MD, PHD [address] [place] [address], [phone] , [facility] 3 10:42:22 Problem Notes None recorded. Procedures Surgical History Date Name Laterality Status Provider Name and Address Organization Details Recorded Time 12/10/19 Cystoscopy with foreign body/stent removal completed Jack Robert MD, PHD [address] [place] [address], [facility] 12/09/2022 10:42:11 12/10/19 Cipro post Cysto completed Adela Mistry [facility] 12/09/2022 10:34:39 07/19/19 repair of stress incontinence by suprapubic sling completed Danna Buck [facility] 03/28/2022 10:18:41 09/18/19 11 ultrasonic fragmentation of urinary stone through percutaneous nephrostomy completed Danna Buck [facility] 03/28/2022 10:19:27 lobectomy completed Danna [facility] 03/28/2022 10:19:41 Imaging Results None recorded. Procedure Notes None recorded. Medical Equipment None Reported. Allergies Allergen ID Allergen Name Allergen Category Reaction Reaction Severity Criticality Documentation Date Start Date Code Code System Note Provider Name and Address Organization Details Recorded Time 565332 Augmentin medicatio n Not available Not available Not available 08/05/20192011 99140 2 RxNorm Not Available [facility] 0 00:42:34 [id number] Keflex medicatio n Not available Not available Not available 08/05/2019201716 7 RxNorm Not Available [facility] 0 00:42:34 376494 Vibramyci n medicatio n Not available Not available Not available 08/05/2019201797 5 RxNorm Not Available [facility] 0 00:42:34 898559 Penicilli n Not available Not available Not available Not available 08/05/20192011 30621 RxNorm Not Available [facility] 0 00:42:34 041784 doxycycli ne Not available Not available Not available Not available 03/28/2022 3640 RxNorm Danna Buck [place], [place] - [facility] 3 10:12:33 Medications Name Sig Start Date Stop Date Status Note LastModified by Organization Details LastModified Time cyclobenzap rine 10 mg tablet TAKE 1 TABLET BY MOUTH EVERY NIGHT NEEDED FOR NECK PAIN 03/28 completed Not Available Not Available Not Available ketoconazol e 2 % shampoo APPLY TO AFFECTED AREA(S) TOPICALLY TWICE WEEKLY 03/28 completed Not Available Not Available Not Available trazodone 50 mg tablet TAKE 1 TO 3 TABLETS BY MOUTH AT BEDTIME NEEDED 03/28 completed Not Available Not Available Not Available azithromyci n 250 mg tablet TAKE TWO TABLETS BY MOUTH ONE DOSE ON THE FIRST DAY, THEN TAKE ONE DAILY THEREAFTE R. 03/28 completed Not Available Not Available Not Available metoprolol succinate ER 50 mg tablet,exte nded release 24 hr TAKE ONE TABLET BY MOUTH EVERY DAY IN ADDITION TO 100 MG TABLET FOR A TOTAL DAILY DOSE OF 150 MG/DAY 03/28 completed Not Available Not Available Not Available sumatriptan 100 mg tablet TAKE 1 TABLET BY MOUTH AT ONSET OF HEADACHE. MAY REPEAT IN 2 HOURS. MAX OF 2 TABLETS IN 24 HOURS active Not Available Not Available No t Available hydrocodone 5 mg-acetamin ophen 325 mg tablet TAKE ONE TO TWO TABLETS BY MOUTH EVERY 6 HOURS NEEDED FOR SEVERE PAIN OR BREAKTHRO UGH PAIN 12/09 completed Not Available Not Available Not Available prednisone 20 mg tablet TAKE 1 TABLET BY MOUTH TWICE A DAY 03/28 completed Not Available Not Available Not Available valproic acid 250 mg capsule TAKE ONE CAPSULE BY MOUTH TWICE A DAY 03/28 completed Not Available Not Available Not Available omeprazole 40 mg capsule,del ayed release TAKE ONE CAPSULE BY MOUTH EVERY DAY active Not Available Not Available No t Available propranolol 40 mg tablet TAKE ONE TABLET BY MOUTH TWICE A DAY 03/28 completed Not Available Not Available Not Available lorazepam 0.5 mg tablet TAKE ONE TABLET BY MOUTH DIRECTED NEEDED active Not Available Not Available No t Available estradiol 1 mg tablet TAKE ONE TABLET BY MOUTH EVERY DAY active Not Available Not Available No t Available tamsulosin 0.4 mg capsule TAKE ONE CAPSULE BY MOUTH EVERY DAY NEEDED (PRN UNTIL KIDNEY STONE PASSES). 12/09 completed Not Available Not Available Not Available benzonatate 100 mg capsule TAKE ONE CAPSULE BY MOUTH THREE TIMES A DAY NEEDED FOR COUGH active Not Available Not Available No t Available ibuprofen 400 mg tablet TAKE ONE TABLET BY MOUTH FOUR TIMES A DAY 03/28 completed Not Available Not Available Not Available fluoxetine 10 mg capsule TAKE ONE CAPSULE BY MOUTH EVERY DAY active Not Available Not Available No t Available betamethaso ne dipropionat e 0.05 % topical cream APPLY TO AFFECTED AREA(S) TOPICALLY TWO TIMES A DAY NEEDED active Not Available Not Available No t Available oxybutynin chloride 5 mg tablet TAKE ONE TABLET BY MOUTH TWICE A DAY active Not Available Not Available No t Available ondansetron 4 mg disintegrat ing tablet DISSOLVE ONE TABLET BY MOUTH EVERY 6 HOURS NEEDED FOR NAUSEA active Not Available Not Available No t Available topiramate 100 mg tablet TAKE ONE TABLET BY MOUTH TWICE A DAY . PLEASE CALL TO SCHEDULE APPOINTME NT active Not Available Not Available No t Available oxycodone 5 mg tablet TAKE ONE TABLET BY MOUTH EVERY 6 HOURS NEEDED 12/09 completed Not Available Not Available Not Available eszopiclone 2 mg tablet TAKE 1 TABLET BY MOUTH AT BEDTIME NEEDED FOR INSOMNIA active Not Available Not Available No t Available GaviLyte-G 236 gram-22.74 gram-6.74 gram-5.86 gram oral solution DRINK 8 OZ (240ML) EVERY 15 MINUTES UNTIL FECAL EFFLUENT IS CLEAR 03/28 completed Not Available Not Available Not Available Vitron-C 65 mg iron-125 mg tablet,hemanth yed release TAKE ONE TABLET BY MOUTH EVERY DAY active Not Available Not Available No t Available Qvar RediHaler 40 mcg/actuati on HFA breath activated aerosol INHALE 1 PUFF BY MOUTH TWICE A DAY RINSE MOUTH AFTER USE active Not Available Not Available No t Available Aimovig Autoinjecto r 70 mg/mL subcutaneou s auto-inject or INJECT 70MG UNDER THE SKIN ONCE A MONTH active Not Available Not Available No t Available Paxlovid 300 mg (150 mg x 2)-100 mg tablets in a dose pack TAKE 2 TABLETS NIRMATREL VIR AND 1 TABLET RITONAVIR BY MOUTH TWICE DAILY FOR 5 DAYS 03/28 completed Not Available Not Available Not Available Vitals Date Recorded Body height Body mass index (BMI) Body weight Provider Name and Address Organization Details Last Updated DateTime 03/28/2022 152.4 cm 31.2 kg/m2 96059.78 g Danna Buck [facility] 03/28/2022 10:12:06 Date Recorded Body height Body mass index (BMI) Body weight Provider Name and Address Organization Details Last Updated DateTime 12/09/2022 152.4 cm 32.2 kg/m2 37516.74 g Solangejay Rosenbergson [facility] 12/09/2022 09:59:04 Social History Question Answer Notes LastModified by Organizat ion Details LastModified Time Tobacco Smoking Status [facility] 03/28/2022 10:17:41 What Is Your Level Of Alcohol Consumption? Occasional Very Rarely [email or web address] Information not available 03/28/2022 What Is Your Level Of Caffeine Consumption? Occasional Very Rarely [email or web address] Information not available 03/28/2022 Race White Information no t available 12/09/2022 Ethnicity Not /Latin o Information not available 12/09/2022 Preferred Language Nigerien Information not available 12/09/2022 What Was The Date Of Your Most Recent Tobacco Screening? 12/09/2022 Information not available 12/09/2022 Do You Use Any Illicit Or Recreational Drugs? No [email or web address] Information not available 03/28/2022 Sex: Unknown Functional Status None recorded. Mental Status None recorded. Family History Relationship Description Onset Age of this Age Resolved Age Notes LastModified by Organization Details LastModified Time Father Family history of malignant neoplasm 56 non hodgki n lympho ma [email or web address] Not available 03/28/2022 10:17:13 Medical History Condition Response Sexually Transmitted Infection N Diabetes N Bleeding Disorder N High Blood Pressure N Kidney Stones Y Cancer Y Lung Disease N Depression N High Cholesterol N GERD/Acid Reflux N Heart Disease N Gynecological History Statement/Question Response Leaking urine with intercourse Y Sexually Active? Y Pain with intercourse Y Obstetrics History GPAL:G 0 P 0 0 0 0 Immunizations Vaccine Type Date Status Provider Name and Address Organization Details Recorded Time Influenza, split virus, quadrivalent, preservative 11/15/2020 completed Mariajose Lopez null, [facility] 12/02/2022 11:19:57 zoster recombinant 11/27/2021 completed Mariajose Lopez null, [facility] 12/02/2022 11:19:58 zoster recombinant 01/28/2022 [facility]22 11:19:58 MMR 07/07/2017 [facility]/02/2022 11:19:58 COVID-19, mRNA, LNP-S, PF, 30 mcg/0.3 mL dose 02/29/2020 [facility]/2022 11:19:58 COVID-19, mRNA, LNP-S, PF, 30 mcg/0.3 mL dose 05/29/2021 [facility] 11:19:58 COVID-19, mRNA, LNP-S, PF, 30 mcg/0.3 mL dose 11/15/2020 completed [facility]/02/2022 11:19:58 COVID-19, mRNA, LNP-S, PF, 30 mcg/0.3 mL dose 02/09/2020 completed [facility] 12/02/2022 11:19:58 COVID-19, mRNA, LNP-S, bivalent, PF, 30 mcg/0.3 mL dose 11/14/2021 completed [facility] 12/02/2022 11:19:58 influenza, unspecified formulation 09/30/2018 [facility]/02/2022 11:19:58 influenza, unspecified formulation 10/20/2008 completed [facility]/2022 11:19:58 influenza, unspecified formulation 11/11/2009 [facility]/02/2022 11:19:58 influenza, unspecified formulation 11/20/2005 completed [facility]re [facility], [facility] 12/02/2022 11:19:58 influenza, unspecified formulation 11/20/2006 completed Mariajose Almejere null, [facility] 12/02/2022 11:19:58 influenza, unspecified formulation 12/25/2004 completed Mariajose Almejere null, [facility] 12/02/2022 11:19:58 influenza, unspecified formulation 01/24/2004 completed Mariajose Almejere null, [facility] 12/02/2022 11:19:58 Tdap 11/10/2013 completed Mariajose Almejere null, [facility] 12/02/2022 11:19:58 Influenza, split virus, trivalent, preservative 11/10/2013 completed Mariajose Almejere null, [facility] 12/02/2022 11:19:58 Influenza, split virus, trivalent, preservative 12/07/2007 completed Mariajose Almejere null, [facility] 12/02/2022 11:19:58 Influenza, split virus, trivalent, PF 10/30/2011 completed Mariajose Almejere null, [facility] 12/02/2022 11:19:58 Influenza, split virus, trivalent, PF 11/02/2012 completed Mariajose Almejere null, [facility] 12/02/2022 11:19:58 Influenza, split virus, trivalent, PF 11/07/2010 completed Mariajose Almejere null, [facility] 12/02/2022 11:19:58 Influenza, split virus, trivalent, PF 11/10/2014 completed Mariajose Almejere null, [facility] 12/02/2022 11:19:58 Influenza, split virus, trivalent, PF 11/19/2017 completed Mariajose Almejere null, [facility] 12/02/2022 11:19:58 Influenza, split virus, trivalent, PF 11/24/2019 completed Mariajose Almejere null, [facility] 12/02/2022 11:19:58 Novel [id number] 12/28/2008 completed Mariajose Ledezmare null, [facility] 12/02/2022 11:19:58 Td (adult), 5 Lf tetanus toxoid, preservative free, adsorbed 10/26/2018 completed Mariajose Dodsonejere null, [facility] 12/02/2022 11:19:58 Td (adult), 2 Lf tetanus toxoid, preservative free, adsorbed 03/18/2005 completed Mariajose Almejere null, [facility] 12/02/2022 11:19:58 Td (adult), 2 Lf tetanus toxoid, preservative free, adsorbed 02/17/1996 [facility]/02/2022 11:19:58 Hep A, adult 03/27/2011 [facility]/02/2022 11:19:58 Hep A, adult 10/03/2011 completed Mariajose Ledezmare null, [facility] 12/02/2022 11:19:58 Influenza, split virus, quadrivalent, PF 11/08/2016 completed Mariajose Dodsonejere null, [facility] 12/02/2022 11:19:58 Influenza, split virus, quadrivalent, PF 11/14/2021 completed [facility]/2022 11:19:58 Influenza, split virus, quadrivalent, PF 12/28/2008 completed [facility]hair [facility] 12/02/2022 11:19:58 COVID-19, mRNA, LNP-S, PF, barbara-sucrose, 30 mcg/0.3 mL 11/18/2022 completed [facility] 12/09/2022 12:36:45 Past Encounters Encounter ID Performer Location Encounter Start Date Encounter Closed Date Diagnosis/Indication Diagnosis SNOMED-CT Code Diagnosis ICD10 Code [id number] Teresa Montoya PA-C [facility] [address] [place], [place] [address] 03/28/2022 10:00:29 04/01/2022 10:20:38 Ureteric stone 50961256 N20.1 [id number] Jack irwin MD, PHD [facility] [address],[facility] [address] [place] [address] 12/09/2022 09:43:12 12/18/2022 17:53:40 Ureteric stone 47486747 N20.1 Health Concerns Section Related Observation LastModified by Organization Detai ls LastModified Time None Recorded Concern Status LastModified by Organization Details LastModified Time None Recorded Advance Directives Directive None Recorded Payers Encounter Date Sequence Insurance Name Policy Number Policy Kyle Covered Member ID Kyle Member ID Guarantor Name 03/28/2022 1 PREFERREDONE [id number] Fifi Kasper [id number] Fifi Kasper 12/09/2022 1 PREFERREDONE [id number] Fifi S Ranjith [id number] Fifi Kasper Notes Date Note Type Note Provider Name and Address Organization Details Recorded Time 03/28/2022 text/html HPI Notes: 52F with right flank pain. History of calcium oxalate stones, first 1995. Patient of Dr. Marie. 04/23/17 (PF): Developed left flank pain in February 2017. CT scan (03/14/17) revealed a 7 mm Left UVJ stone and bilateral small kidney stones. She had ESWL in 2010. Son has renal tubular acidosis. 03/28/22 (LB): Was to f/u with Dr. Marie in 1 year after last seen in 2018, but lost to urologic follow up. Saw PCP on 03/27 for 8 day history of right flank pain and urinary urgency. CT revealed 5 mm distal right ureteral stone with hydro. Normal Cr and CBC per outside records. PCP prescribed tamsulosin, hydrocodone, and toradol. Continues to have intermittent right flank pain and urge to urinate. Couple instances of blood on toilet tissue, but none in the bowl. Denies N/V. Denies dysuria, fever, or chills. Not straining her urine. UA today ketone 15, trace blood, protein 30, trace leuks Labs: (reviewed) 24 Hr urine (03/27/17) - low UO (1.36 L) - low Citrate (180 mg) - normal - Calcium (201 mg) - Oxalate (20 mg) - Mg (97 mg) - Phos (0.503) - Uric acid (0.353) PTH - 73 (03/18/17) - high Calcium - 9.1 (03/18/17) - normal Imaging: (reviewed) 03/14/17 CT A/P: Left - 7 mm stone (UVJ) - 2 mm stone (upper pole) - 3 mm stone (lower pole) - Right - 2 (2 mm) stones (mid-pole) 03/27/22 CT A/P: 5 mm distal right ureteral stone with hydro; Left - 6 mm upper to midpole stone, 2 punctate lower pole stones; Right - 4-5 mm lower pole stone, 3 punctate midpole stones PMH: lung cancer, kidney stones PSH: right lower lobectomy, ESWL Soc: Occ: Tobacco: EtOH: FHx: Teresa Montoya PA-C [address] [place] [address],[address], [place], [address], [facility] 03/28/2022 17:04:38 12/09/2022 text/html HPI Notes: 52F with kidney stones. 12/01/22: left URS/HLL/stent for 8 mm UVJ stone Here for stent removal. Has bladder spasms. Jack Robert MD, PHD [address] [place] [address],[address], [place], [address], [facility] 12/09/2022 10:42:55 OBGyn Episode No OBEpisode recorded.
--- OUTSIDE RECORDS SUMMARY | 2023-11-19 19:15 | XMS_ITS | Referral Summary ---
Author Organization [facility] Address [address] [place] [address] Care Team Providers Care Supervisor Machine Workers Name Role Phone Unavailable Primary Care Provider Unavailabl e Source Comments Patient records contain information from all sites at [facility]. For routine questions regarding patient records, call [phone] during business hours, M-F 8:00 AM - 5:00 PM Central Time. Record requests for emergency care only can be directed to [phone] at any time.[facility] Medications Medication Sig Dispensed Refills [...]
--- OUTSIDE RECORDS SUMMARY | 2023-11-19 19:15 | XMS_ITS | Clinical Summary ---
Author Organization [employer] [facility] s & [facility] Address [place], [place] [address] Care Team Providers Care News Anchor Name Role Phone 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 Height - - Body Mass Index - [...] 07/06/2014, Additional history exists COVID-19 vaccine series (2023-25 season) 2023 Influenza for age 50-64 10/19/2023 Pneumococcal series for age 6-64 Aged Out No longer eligible based on patient's age to complete this topic Procedures Procedure Name Priority Date/Time Associated Diagnosis Comments METALS SALES REPRESENTATIVE THIN PREP PAP SCREEN IMAGED Routine 11/15/2019 2:15 PM CDT from Last 3 Months or Most Recently Relevant to Health Maintenance Results * METALS SALES REPRESENTATIVE THIN PREP PAP SCREEN IMAGED (11/15/2019 2:15 PM CDT) Case Report Gynecologic Cytology Report ? Case: [id number] ? Authorizing Provider: ??Shobha Yen ?Collected: ? 11/15/2019 1415 ? MD Kimberly ? Ordering Location: ? [facility] ?Received: ?11/17/2019 0822 ? First Screen: ?Asmita Doan ? Specimen: ?METALS SALES REPRESENTATIVE ThinPrep Vial Screening, Cervical/Vaginal ? 11/24/2019 5:31 PM CDT [facility] INTERPRETATION/ RESULT NEGATIVE FOR INTRAEPITHELIAL LESION OR MALIGNANCY (NIL) (none) 11/24/2019 5:31 PM T [facility] IMEN ADEQUACY Satisfactory for evaluation No endocervical component seen 11/24/2019 5:31 PM CDT [facility] EN[facility] LAB[facility] HPV REQUEST HPV and PAP 11/24/2019 5:31 PM CDT [facility] Last Pap Date 07/06/2014 11/24/2019 5:31 PM CDT [facility] Last Pap Result NIL 0 5:31 PM CDT [facility] Comment:-HPV Menstrual Status 11/24/2019 5:31 PM CDT [facility] Comment:IUD Additional Information 11/24/2019 5:31 PM CDT [facility] Comment: Interpreted at [facility], Central Laboratory - [address], [place] [address] Automated Review Successful 11/24/2019 5:31 PM CDT [facility] Comment:Specimen processed s uccessfully by automated research methods instructor device, ThinPrep Imaging System, [employer] ANCILLARY TESTING METALS SALES REPRESENTATIVE HPV Ordered, Please see separate report 11/24/2019 5:31 PM CDT [facility]-C ENTRAL LABORATORY Note The pap test [...] and malignant lesions. 11/24/2019 5:31 PM CDT [facility] EN[facility]AL LABORATORY Other (Cervical/Vagina l) 11/15/2019 2:15 PM CDT 11/17/2019 8:22 AM CDT Shobha Yen MD PATHOLOGY/ CYTOLOGY [facility] [employer] [facility] LAB[facility]ATORY [address] [place] [address], [place] from Last 3 Months or Most Recently Relevant to Health Maintenance Care Teams News Anchor Relationship Specialty Start Date End Date Pcp, No . PCP - General 04/23/[address] [facility] 03/26/17
--- OUTSIDE RECORDS SUMMARY | 2023-11-19 19:15 | XMS_ITS | Clinical Summary ---
Author Organization [facility] Address [address] [place] [address] Care Team Providers Care Client Finance Analyst Name Role Phone Unavailable Primary Care Provider Unavailabl e Source Comments Patient records contain information from all sites at [facility]. For routine questions regarding patient records, call [phone] during business hours, M-F 8:00 AM - 5:00 PM Central Time. Record requests for emergency care only can be directed to [phone] at any time.[facility] Medications Medication Sig Dispensed Refills Start [...] Date Last Done Comments CT Colonography 1970 Cologuard 1970 Colonoscopy 1970 Colorectal Cancer Screening 1970 FIT 1970 HIV Screening 1970 Hepatitis C Screening 1970 Lipid (Cholesterol) Screening 1970 Mammogram 1970 Cervical Cancer Screening 11/14/2022 11/15/2019 Depression Screening (Annual PHQ-2) 02/17/2023 COVID-19 Vaccine ( season) 2023 11/18/2022, 11/14/2021, 05/29/2021, Additional history exists Influenza Vaccine (#1) 2023 , 11/14/2021, 11/15/2020, Additional history exists Fasting Glucose for Diabetes Screening 12/02/2025 12/02/2022, 11/30/2022, 11/29/2022 DTaP,Tdap,and Td Vaccines (3 - Td or Tdap) 10/26/2028 10/26/2018, 11/10/2013, 03/18/2005, Additional history exists Hepatitis B Vaccines Completed 07/22/2007, 02/20/2007, 01/14/2007 Zoster Vaccines Completed 01/28/2022, 11/27/2021 Pneumococcal vaccine (0-64 years) Aged Out No longer eligible based on patient's age to complete this topic
--- OUTSIDE RECORDS SUMMARY | 2023-11-19 19:15 | XMS_ITS | Clinical Summary ---
Author Organization [place] Address [address] [place] [address] Care Team Providers Care Control Operator Name Role Phone Nicole Becker MD Primary [...] or breakthrough pain 12 tablet 11/29/2022 Active AIMOVIG 70 MG/ML injection Inject 70 mg Subcutaneous every 30 days Administer of the of the month 03/07/2022 Active estradiol (ESTRACE) 1 MG tablet Take 1 tablet by mouth at bedtime Active eszopiclone (LUNESTA) 2 MG tablet Take 2 mg by mouth nightly as needed for sleep Active FLUoxetine (PROZAC) 10 MG capsule Take 10 mg by mouth every morning 12/26/2020 Active SUMAtriptan (IMITREX) 100 MG tablet Take [...] mouth daily as needed for headaches Active beclomethasone HFA (QVAR REDIHALER) 40 MCG/ACT inhaler Inhale 40 mcg into the lungs 2 times daily 11/14/2022 11/14/2023 omeprazole (PRILOSEC) [address] capsule Take 40 mg by mouth at bedtime 11/14/2022 11/14/2023 Active Problems Problem Noted Date Diagnosed Date [...] this topic Medical Devices Implanted Type Area Registered Dietitian Device Identifier Shelf Expiration Date Model / Serial / Lot Stent Ureteral Polaris Ultra [id number] - [id number] Implanted:Qty : 1 on 12/01/2022 by Jack Robert MD at [facility] Stent Left: Ureter [employer] [id number] 09/25/2025 [id number] Procedures Procedure Name Priority Date/Time Associated Diagnosis Comments BASIC METABOLIC PANEL Routine 12/02/2022 7:03 AM CDT from Last 3 Months or Most Recently Relevant to Health Maintenance Results * (ABNORMAL) Basic metabolic panel (12/02/2022 7:03 AM CDT) [facility] Sodium 142 135 - 145 mmol/L 12/02/2022 [...] 3.4 - 5.3 mmol/L 12/02/2022 7:40 AM [facility] Chloride 111(H) 98 - 107 mmol/L 12/02/2022 7:40 AM T LABORATORY Carbon Dioxide (CO2) 20(L) 22 - 29 mmol/L 12/02/2022 7:40 AM [facility] Anion Gap 11 7 - 15 mmol/L 12/02/2022 7:40 AM [facility] Urea Nitrogen 15.6 6.0 - 20.0 mg/dL 12/02/2022 7:40 AM [facility] Creatinine 1.18(H) 0.51 - 0.95 mg/dL 12/02/2022 7:40 AM [facility] GFR Estimate 55(L) >60 mL/min/1. 73m2 12/02/2022 7:40 AM [facility] Calcium 8.6 8.6 - 10.0 mg/dL 12/02/2022 7:40 AM [facility] Glucose 105(H) 70 - 99 mg/dL 12/02/2022 7:40 AM [facility] Blood STRUCTURE OF LEFT UPPER LIMB / Unknown Venipuncture / Unknown 12/02/2022 7:03 AM CDT 12/02/2022 7:10 AM CDT Emmett Crawford MD LAB - BLOOD ORDERABL ES LABORATORY [facility] Acute Care Lab [address], [address] [place] [address], [facility] [phone] from Last 3 Months or Most Recently Relevant to Health Maintenance Advance Directives For more information, please contact: [phone] * Full Code (Latest Code Status on File) Date Activated Date Inactivated Comments 11/30/2022 8:37 PM 12/02/2022 4:06 PM All basic and advanced life-sustaining interventions are performed as appropriate Question Answer Comments Code status determined by: Discussion with zoila nt/ legal decision maker Care Teams Control Operator Relationship Specialty Start Date End Date Nicole Becker MD [facility] & [address] [address] PCP - General Family Medicine 11/29/22
--- OUTSIDE RECORDS SUMMARY | 2023-11-19 19:15 | XMS_ITS | Referral Summary ---
Author Organization [place] Address [address] [place] [address] Care Team Providers Care Newspaper Library Manager Name Role Phone Nicole Becker MD Primary [...] on file Medical Devices Implanted Type Area Inventory Clerk Device Identifier Shelf Expiration Date Model / Serial / Lot Stent Ureteral Polaris Ultra [id number] - [id number] Implanted:Qty : 1 on 12/01/2022 by Jack Robert MD at [facility] Stent Left: Ureter [employer] [id number] 09/25/2025 [id number] Procedures Procedure Name Priority Date/Time Associated Diagnosis Comments BASIC METABOLIC PANEL Routine 12/02/2022 7:03 AM CDT from Last 3 Months or Most Recently Relevant to Health Maintenance Results * (ABNORMAL) Basic metabolic panel (12/02/2022 7:03 AM CDT) [facility] Signature Sodium 142 135 - 145 mmol/L 12/02/2022 [...] MD LAB - BLOOD ORDERABL ES LABORATORY [facility] Acute Care Lab [address], [address] [place] [address], [facility] [phone] from Last 3 Months or Most Recently Relevant to Health Maintenance Advance Directives For more information, please contact: [phone] * Full Code (Latest Code Status on File) Date Activated Date Inactivated Comments 11/30/2022 8:37 PM 12/02/2022 4:06 PM All basic and advanced life-sustaining interventions are performed as appropriate Question Answer Comments Code status determined by: Discussion with patie nt/ legal decision maker Care Teams Newspaper Library Manager Relationship Specialty Start Date End Date Nicole Becker MD [facility] & [address] [address] PCP - General Family Medicine 11/29/22
--- OUTSIDE RECORDS SUMMARY | 2023-11-19 19:16 | XMS_ITS | Clinical Summary ---
Author Organization [facility] Address [address] [place] [address] Care Team Providers Care Court Specialist Name Role Phone David Choudhury MD Primary Care Provider [phone] Source Comments You are receiving this document as you are listed as the primary care provider,follow-up provider, or the patient has been referred to you for consultation.This is in compliance with the Medicare andSt. [facility] Hospital[facility] EHR Incentive Program,which states Providers who transition their patient to another setting of careor provider of care or refers their patient to another provider of care shouldprovide summary care record for each transition of care or referral. [facility] Active Allergy Reactions Criticality Noted Date [...] day. Rinse mouth/gargle after use 1 Each 11 11/14/2022 Active Additional Information Patient not taking.Reported on [...] (03/09/2021): Added automatically from request for surgery [id number] Impaired glucose tolerance test 03/07/2004 Overview (10/09/2016): [...] Migraine 03/07/2004 04/12/2005 Overview (10/09/2016): Migraine NOS Immunizations Name Administration Dates Next Due Flu [...] Sex Assigned at Female 02/21/2021 8:36 PM DATABASE SECURITY EXPERT Gender Identity Female 02/21/2021 8:36 PM DATABASE SECURITY EXPERT Sexual Orientation Not on file Last Filed [...] 03/31/2006, 03/07/2004 DTaP/Tdap/Td (3 - Tdap) 10/26/2028 10/27/19 19, 11/10/2013, 03/18/2005, Additional history exists Colonoscopy 05/05/2033 [...] type HGB A1C Routine 03/31/2006 9:50 AM DATABASE SECURITY EXPERT LIPID PANEL & DIRECT LDL (IF NEEDED) Routine 03/31/2006 9:50 AM DATABASE SECURITY EXPERT ANATOMICAL PATH LIQUID BASED Routine 03/31/2006 7:31 AM DATABASE SECURITY EXPERT from Last 3 Months or Most Recently [...] deficiency anemia Providers: ? Saúl Kaur, ? Shahla Reddy Patient Profile: ? Denies any overt [...] saturations were ? monitored continuously. The ? [id number] was introduced through ? the anus and [...] the initial medication ? administration until the dye line operator assists with ? initial maneuvers (biopsy / [...] Procedure Code(s): ? --- Professional --- ? 46512, Colonoscopy, flexible; ? diagnostic, including collection of [...] (additional time may ? be reported with 16370, as ? appropriate) ? 84645, Moderate sedation; each ? additional 15 minutes intraservice ? time Diagnosis Code(s): ? --- Professional --- ? K64.8, Other hemorrhoids ? D50.9, Iron deficiency anemia, ? unspecified ? K57.30, Diverticulosis of large ? intestine without perforation or ? abscess without bleeding CPT copyright 2021 [employer]. All rights reserved. The codes documented in this report are preliminary and upon shoe repairer apprentice review may be revised to meet current [...] and oxygen saturations were monitored continuously. The [id number] was introduced through the anus and advanced [...] from the initial medication administration until the dye line operator assists with initial maneuvers (biopsy / polypectomy [...] kind referral. Procedure Code(s): --- Professional --- 90689, Colonoscopy, flexible; diagnostic, including collection of specimen(s) by brushing or washing, when performed (separate procedure) G0500, Moderate sedation services provided by the same physician or other qualified health post acute care nurse practitioner performing a gastrointestinal endoscopic service that sedation supports, requiring the presence of an independent trained observer to assist in the monitoring of the patient's level of consciousness and physiological status; initial 15 minutes of intra-service time; patient age 5 years or older (additional time may be reported with 43935, as appropriate) [address]0434, Moderate sedation; each additional 15 minutes intraservice time Diagnosis Code(s): --- Professional --- K64.8, Other hemorrhoids D50.9, Iron deficiency anemia, unspecified K57.30, Diverticulosis of large intestine without perforation or abscess without bleeding CPT copyright 2021 [employer]. All rights reserved. The codes documented in this report are preliminary and upon shoe repairer apprentice review may be revised to meet current compliance requirements. Saúl Kaur, 05/06/2023 2:01:33 PM Number of Addenda: 0 Note Initiated On: 05/06/2023 1:07 PM Endoscopy Report Kian BAUER ET GI PROCEDURE ORDAlexander CHITO * Lipid Panel and Direct LDL(If Needed) (03/31/2006 9:50 AM DATABASE SECURITY EXPERT) Hours Fasting 12.0 Hours HP CONVERSION Cholesterol/HDL Ratio Screen 3.1 No normal range HP CONVERSION Cholesterol 174 <200 mg/dL HP CONVERSION HDL Cholesterol 56 40 - 60 mg/dL HP CONVERSION Triglycerides 111 0 - 149 mg/dL HP CONVERSION LDL Calculated 96 0 - 130 mg/dL HP CONVERSION Comment: 03/31/2006 9:50 AM DATABASE SECURITY EXPERT Theresa Hardy MD LAB_1 Performing Organization Address City/[facility]/ZIP Co de Phone Number HP CONVERSION * Hgb A1c (03/31/2006 9:50 AM DATABASE SECURITY EXPERT) HGB A1C 5.4 <6.0 % HP CONVERSION 03/31/2006 9:50 AM DATABASE SECURITY EXPERT Theresa Hardy MD LAB_1 HP CONVERSION * Pap Smear (03/31/2006 7:31 AM DATABASE SECURITY EXPERT) PAP Smear Liquid Based SEE TEXT No normal range HP CONVERSION Comment: Patient: FIFI JOSÉ ? CERVICAL CYTOLOGY REPORT Pathology # ??[id number] ?Date Obtained: ? Date Received: CYTOLOGIC IMPRESSION: Negative for intraepithelial lesion or malignancy. Verified 04/02/06 by: ??MB ? (electronic signature) ? ADDITIONAL DATA LMP: CLINICAL HIST LIQUID BASED PAP CERVICAL SPECIMEN ADEQUACY: ?? Satisfactory. ENDOCERVICAL CELLS: ??Present. 03/31/2006 7:31 AM DATABASE SECURITY EXPERT Theresa Hardy MD LAB_1 HP CONVERSION from Last 3 Months or Most Recently Relevant to Health Maintenance Advance Directives * Full Code (Latest Code Status on File) Date Activated Date Inactivated Comments 03/16/2021 8:09 PM 03/21/2021 4:25 PM Full code in effect for [address] Specialist Relationship Specialty Start Date End Date David Choudhury MD [address] [place] [address] PCP - General Family Practice 03/16/21
== END 2023-11-19 19:14 | disposition home or self-care (01) ==
LOC: SLEEP 19:14
PROVIDERS: PCP Family Medicine; Visit Provider Otolaryngology
DX: G47.30 Sleep apnea, unspecified (principal); R06.83 Snoring
CPT/HCPCS: 95806

== ENCOUNTER 2023-12-01 07:39 | Outpatient (CLI) | payer OTHER, SELFPAY ==
--- OUTSIDE RECORDS SUMMARY | 2023-12-01 07:41 | XMS_ITS | Referral Summary ---
Author Organization [facility] Address [address] [place] [address] Care Team Providers Care Senior Sales Consultant Name Role Phone Unavailable Primary Care Provider Unavailabl e Source Comments Patient records contain information from all sites at [facility]. For routine questions regarding patient records, call [phone] during business hours, M-F 8:00 AM - 5:00 PM Central Time. Record requests for emergency care only can be directed to [phone] at any time.[facility] Medications potassium citrate (UROCIT-K) 10 mEq (1,080 mg) [...] Recorded Dental: Regular Dentist Unknown 12/27/19 23 Comments Unknown Sex and Gender Information Value Date Recorded Sex Assigned at Not on file Legal Sex Female 10:32 AM PRECISION MACHINING INSTRUCTOR Gender Identity Not on file Sexual Orientation Not on file Plan of Treatment Not on file
--- OUTSIDE RECORDS SUMMARY | 2023-12-01 07:41 | XMS_ITS ---
Author Organization [facility] Address [address] [place] [address] Care Team Providers Care Aegis Console Operator Track Name Role Phone Unavailable Unavailable Unavailable Surgery Details Not on file Complications Check Surgery Details section. Procedure Estimated Blood Loss Check Surgery Details section. Procedure Findings Check Surgery Details section. Procedure Specimens Taken Check Surgery Details section.
--- OUTSIDE RECORDS SUMMARY | 2023-12-01 07:41 | XMS_ITS | Referral Summary ---
Author Organization [facility] Address [address] [place] [address] Care Team Providers Care Box Press Operator Name Role Phone Nicole Becker MD [...] on file Medical Devices Implanted Type Area Box Sealing Machine Catcher Device Identifier Shelf Expiration Date Model / Serial / Lot Stent Ureteral Polaris Ultra [id number] - [id number] Implanted:Qty : 1 on 12/01/2022 by Jack Robert MD at [facility] Stent Left: Ureter [employer] [id number] 09/25/2025 [id number] Procedures Procedure Name Priority Date/Time Associated Diagnosis Comments BASIC METABOLIC PANEL Routine 12/02/2022 7:03 AM CDT from Last 3 Months or Most Recently Relevant to Health Maintenance Results * (ABNORMAL) Basic metabolic panel (12/02/2022 7:03 AM CDT) [facility] Signature Sodium 142 135 - 145 mmol/L [...] MD LAB - BLOOD ORDERABL ES LABORATORY [facility] Acute Care Lab [address], [address] [place] [address], [facility] [phone] from Last 3 Months or Most Recently Relevant to Health Maintenance Advance Directives For more information, please contact: [phone] * Full Code (Latest Code Status on File) Date Activated Date Inactivated Comments 11/30/2022 8:37 PM 12/02/2022 4:06 PM All basic and advanced life-sustaining interventions are performed as appropriate Question Answer Comments Code status determined by: Discussion with patie nt/ legal decision maker Care Teams Box Press Operator Relationship Specialty Start Date End Date Nicole Becker MD [facility] & [address] [address] PCP - General Family Medicine 11/29/22
--- OUTSIDE RECORDS SUMMARY | 2023-12-01 07:41 | XMS_ITS | Clinical Summary ---
Author Organization [employer] [facility] s & [facility] Address [place], [place] [address] Care Team Providers Care Montessori Lead Teacher Name Role Phone Unavailable Unavailable Pcp, No [...] Comments Blood Pressure 110/72 04/23/2017 12:07 PM BUNDLE SORTER Pulse 75 04/23/2017 12:07 PM BUNDLE SORTER Temperature - - Respiratory Rate - - Oxygen Saturation 96% 04/23/2017 12:07 PM BUNDLE SORTER Inhaled Oxygen Concentration - - Weight 78.6 kg (173 lb 4.8 oz) 04/23/2017 12:07 PM BUNDLE SORTER Height - - Body Mass Index - [...] 07/06/2014, Additional history exists COVID-19 vaccine series (2023- season) 2023 11/18/2022, 11/14/2021, 05/29/2021, Additional history exists Influenza for age 50-64 10/19/2023 Pneumococcal series for age 6-64 Aged Out No longer eligible based on patient's age to complete this topic Procedures Procedure Name Priority Date/Time Associated Diagnosis Comments SEAMLESS HOSIERY KNITTER THIN PREP PAP SCREEN IMAGED Routine 11/15/2019 2:15 PM CDT from Last 3 Months or Most Recently Relevant to Health Maintenance Results * SEAMLESS HOSIERY KNITTER THIN PREP PAP SCREEN IMAGED (11/15/2019 2:15 PM CDT) Case Report Gynecologic Cytology Report ? Case: [id number] ? Authorizing Provider: ??Shobha Yen ?Collected: ? 11/15/2019 1415 ? MD Kimberly ? Ordering Location: ? [facility] CENTRAL [facility] ?Received: ?11/17/2019 0822 ? First Screen: ?Asmita Doan ? Specimen: ?SEAMLESS HOSIERY KNITTER ThinPrep Vial Screening, Cervical/Vaginal ? 11/24/2019 5:31 PM CDT [facility] INTERPRETATION/ RESULT NEGATIVE FOR INTRAEPITHELIAL LESION OR MALIGNANCY (NIL) (none) 11/24/2019 5:31 PM T [facility] IMEN ADEQUACY Satisfactory for evaluation No endocervical component seen 11/24/2019 5:31 PM CDT [facility] HPV REQUEST HPV and PAP 11/24/2019 5:31 PM CDT [facility] Last Pap Date 07/06/2014 11/24/2019 5:31 PM T [facility] Last Pap Result NIL 0 5:31 PM T [facility] Comment:-HPV Menstrual Status 11/24/2019 5:31 PM T [facility] Comment:IUD Additional Information 11/24/2019 5:31 PM CDT [facility] Comment: Interpreted at [facility], Central Laboratory - [address], [place] [address] Automated Review Successful 11/24/2019 5:31 PM T [facility] Comment:Specimen processed s uccessfully by automated vault manager device, ThinPrep Imaging System, [employer] ANCILLARY TESTING SEAMLESS HOSIERY KNITTER HPV Ordered, Please see separate report 11/24/2019 5:31 PM CDT [facility] ENTRAL LABORATORY Note The pap test [...] and malignant lesions. 11/24/2019 5:31 PM CDT [facility] ENTRAL LABORATORY Other (Cervical/Vagina l) 11/15/2019 2:15 PM CDT 11/17/2019 8:22 AM CDT Shobha Yen MD PATHOLOGY/ CYTOLOGY [facility]-CENTRAL LABORATORY [address] [place] [address], [place] from Last 3 Months or Most Recently Relevant to Health Maintenance Care Teams Montessori Lead Teacher Relationship Specialty Start Date End Date Pcp, No . PCP - General 04/23/17 03/26/17
--- OUTSIDE RECORDS SUMMARY | 2023-12-01 07:41 | XMS_ITS | Clinical Summary ---
Author Organization [facility] Address [address] [place] [address] Care Team Providers Care Production Expert Name Role Phone Unavailable Primary Care Provider Unavailabl e Source Comments Patient records contain information from all sites at [facility]. For routine questions regarding patient records, call [phone] during business hours, M-F 8:00 AM - 5:00 PM Central Time. Record requests for emergency care only can be directed to [phone] at any time.[facility] Medications potassium citrate (UROCIT-K) 10 mEq [...] on file Legal Sex Female 10:32 AM ATTENDING ANESTHESIOLOGIST Gender Identity Not on file Sexual Orientation [...] 2023 11/18/2022, 11/14/2021, 05/29/2021, Additional history exists Fasting Glucose for Diabetes Screening 12/02/2025 12/02/2022, 11/30/2022, 11/29/2022 DTaP,Tdap,and Td Vaccines (3 - Td or Tdap) 10/26/2028 10/26/2018, 11/10/2013, 03/18/2005, Additional history exists Hepatitis B Vaccines Completed 07/22/2007, 02/20/2007, 01/14/2007 Zoster Vaccines Completed 01/28/2022, 11/27/2021 Influenza Vaccine Completed 11/11/2023, , 11/14/2021, Additional history exists Pneumococcal vaccine (0-64 years) Aged Out No longer eligible based on patient's age to complete this topic
--- OUTSIDE RECORDS SUMMARY | 2023-12-01 07:41 | XMS_ITS | Clinical Summary ---
Author Organization [facility] Address [address] [place] [address] Care Team Providers Care Care Clinician Name Role Phone Nicole Becker MD Primary [...] 10/26/2028 10/26/2018, 11/10/2013, 03/18/2005, Additional history exists RSV VACCINE (1 - 1-dose 75+ series) 2045 HEPATITIS B IMMUNIZATION Completed 008, 02/20/2007, 01/14/2007 ZOSTER IMMUNIZATION Completed 01/28/2022, 2 HPV IMMUNIZATION Aged Out No longer e [...] this topic Medical Devices Implanted Type Area Cabin Outfitter Device Identifier Shelf Expiration Date Model / Serial / Lot Stent Ureteral Polaris Ultra [id number] - [id number] Implanted:Qty : 1 on 12/01/2022 by Jack Robert MD at [facility] Stent Left: Ureter [employer] [id number] 09/25/2025 [id number] Procedures Procedure Name Priority Date/Time Associated Diagnosis Comments BASIC METABOLIC PANEL Routine 12/02/2022 7:03 AM CDT from Last 3 Months or Most Recently Relevant to Health Maintenance Results * (ABNORMAL) Basic metabolic panel (12/02/2022 7:03 AM CDT) Sodium 142 135 - 145 mmol/L 12/02/2022 7:40 AM T LABORATORY Comment:Reference intervals for this test were updated on 11/12/2022 to more accurately reflect our healthy population. There may be differences in the flagging of prior results with similar values performed with this method. Interpretation of those prior results can be made in the context of the updated reference intervals. Potassium 3.9 3.4 - 5.3 mmol/L 12/02/2022 7:40 AM [facility] Chloride 111(H) 98 - 107 mmol/L 12/02/2022 7:40 AM T LABORATORY Carbon Dioxide (CO2) 20(L) 22 - 29 mmol/L 12/02/2022 7:40 AM [facility] Anion Gap 11 7 - 15 mmol/L 12/02/2022 7:40 AM [facility] Urea Nitrogen 15.6 6.0 - 20.0 mg/dL 12/02/2022 7:40 AM [facility] Creatinine 1.18(H) 0.51 - 0.95 mg/dL 12/02/2022 7:40 AM T LABORATORY GFR Estimate 55(L) >60 mL/min/1. 73m2 12/02/2022 7:40 AM [facility] Calcium 8.6 8.6 - 10.0 mg/dL 12/02/2022 7:40 AM [facility] Glucose 105(H) 70 - 99 mg/dL 12/02/2022 7:40 AM [facility] Blood STRUCTURE OF LEFT UPPER LIMB / Unknown Venipuncture / Unknown 12/02/2022 7:03 AM CDT 12/02/2022 7:10 AM CDT Emmett Crawford MD LAB - BLOOD ORDERABL ES LABORATORY [facility] Lab [address] floor, [address] [place] [address], [facility] [phone] from Last 3 Months or Most Recently Relevant to Health Maintenance Advance Directives For more information, please contact: [phone] * Full Code (Latest Code Status on File) Date Activated Date Inactivated Comments 11/30/2022 8:37 PM 12/02/2022 4:06 PM All basic and advanced life-sustaining interventions are performed as appropriate Question Answer Comments Code status determined by: Discussion with patie nt/ legal decision maker Care Teams Care Clinician Relationship Specialty Start Date End Date Nicole Becker MD [facility] [address] [place] [address] PCP - General Family Medicine 11/29/22
--- OUTSIDE RECORDS SUMMARY | 2023-12-01 07:42 | XMS_ITS | Clinical Summary ---
Author Organization [facility] Address [address] [place] [address] Care Team Providers Care Echo Tech Name Role Phone David Choudhury MD Primary Care Provider [phone] Source Comments You are receiving this document as you are listed as the primary care provider,follow-up provider, or the patient has been referred to you for consultation.This is in compliance with the Medicare and[facility] EHR Incentive Program,which states Providers who transition their patient to another setting of careor provider of care or refers their patient to another provider of care shouldprovide summary care record for each transition of care or referral. [facility] Active Allergy Reactions Criticality Noted Date [...] (03/09/2021): Added automatically from request for surgery [id number] Impaired glucose tolerance test 03/07/2004 Overview (10/09/2016): [...] Sex Assigned at Female 02/21/2021 8:36 PM FLOWER GRADER Gender Identity Female 02/21/2021 8:36 PM FLOWER GRADER Sexual Orientation Not on file Last Filed [...] on patient's age to complete this topic Infant RSV Aged Out No longer eligi ble based [...] type HGB A1C Routine 03/31/2006 9:50 AM FLOWER GRADER LIPID PANEL & DIRECT LDL (IF NEEDED) Routine 03/31/2006 9:50 AM FLOWER GRADER ANATOMICAL PATH LIQUID BASED Routine 03/31/2006 7:31 AM FLOWER GRADER from Last 3 Months or Most Recently [...] saturations were ? monitored continuously. The ? [id number] was introduced through ? the anus and [...] the initial medication ? administration until the appeals analyst assists with ? initial maneuvers (biopsy / [...] Procedure Code(s): ? --- Professional --- ? 00190, Colonoscopy, flexible; ? diagnostic, including collection of [...] (additional time may ? be reported with 79831, as ? appropriate) ? 42698, Moderate sedation; each ? additional 15 minutes intraservice ? time Diagnosis Code(s): ? --- Professional --- ? K64.8, Other hemorrhoids ? D50.9, Iron deficiency anemia, ? unspecified ? K57.30, Diverticulosis of large ? intestine without perforation or ? abscess without bleeding CPT copyright 2021 [employer]. All rights reserved. The codes documented in this report are preliminary and upon medical biller coder review may be revised to meet current [...] and oxygen saturations were monitored continuously. The [id number] was introduced through the anus and advanced [...] from the initial medication administration until the appeals analyst assists with initial maneuvers (biopsy / polypectomy [...] kind referral. Procedure Code(s): --- Professional --- 21010, Colonoscopy, flexible; diagnostic, including collection of specimen(s) by brushing or washing, when performed (separate procedure) G0500, Moderate sedation services provided by the same physician or other qualified health care program resident performing a gastrointestinal endoscopic service that sedation supports, requiring the presence of an independent trained observer to assist in the monitoring of the patient's level of consciousness and physiological status; initial 15 minutes of intra-service time; patient age 5 years or older (additional time may be reported with 25023, as appropriate) 87247, Moderate sedation; each additional 15 minutes intraservice time Diagnosis Code(s): --- Professional --- K64.8, Other hemorrhoids D50.9, Iron deficiency anemia, unspecified K57.30, Diverticulosis of large intestine without perforation or abscess without bleeding CPT copyright 2021 [employer]. All rights reserved. The codes documented in this report are preliminary and upon medical biller coder review may be revised to meet current compliance requirements. Saúl Kaur, 05/06/2023 2:01:33 PM Number of Addenda: 0 Note Initiated On: 05/06/2023 1:07 PM Endoscopy Report Kian BAUER ET GI PROCEDURE ORDE RABLES * Lipid Panel and Direct LDL(If Needed) (03/31/2006 9:50 AM FLOWER GRADER) Hours Fasting 12.0 Hours HP CONVERSION Cholesterol/HDL Ratio Screen 3.1 No normal range HP CONVERSION Cholesterol 174 <200 mg/dL HP CONVERSION HDL Cholesterol 56 40 - 60 mg/dL HP CONVERSION Triglycerides 111 0 - 149 mg/dL HP CONVERSION LDL Calculated 96 0 - 130 mg/dL HP CONVERSION Comment: 03/31/2006 9:50 AM FLOWER GRADER Theresa Hardy MD LAB_1 Performing Organization Address [facility] Co de Phone Number HP CONVERSION * Hgb A1c (03/31/2006 9:50 AM FLOWER GRADER) HGB A1C 5.4 <6.0 % HP CONVERSION 03/31/2006 9:50 AM FLOWER GRADER Theresa Hardy MD LAB_1 Performing Organization Address [facility] Co de Phone Number HP CONVERSION * Pap Smear (03/31/2006 7:31 AM FLOWER GRADER) PAP Smear Liquid Based SEE TEXT No normal range HP CONVERSION Comment: Patient: FIFI JOSÉ ? CERVICAL CYTOLOGY REPORT Pathology # ??[id number] ?Date Obtained: ? Date Received: CYTOLOGIC IMPRESSION: Negative for intraepithelial lesion or malignancy. Verified 04/02/06 by: ??MB ? (electronic signature) ? ADDITIONAL DATA LMP: CLINICAL HIST LIQUID BASED PAP CERVICAL SPECIMEN ADEQUACY: ?? Satisfactory. ENDOCERVICAL CELLS: ??Present. 03/31/2006 7:31 AM FLOWER GRADER Theresa Hardy MD LAB_1 HP CONVERSION from Last 3 Months or Most Recently Relevant to Health Maintenance Advance Directives * Full Code (Latest Code Status on File) Date Activated Date Inactivated Comments 03/16/2021 8:09 PM 03/21/2021 4:25 PM Full code in effect for 30 days Care Teams Echo Tech Relationship Specialty Start Date End Date David Choudhury MD [address] [place] [address] PCP - General Family Practice 03/16/21
--- NOTE | 2023-12-01 08:15 | CRLHL7_ITS ---
For Patients: As a result of the Cures Act, medical imaging exams and procedure reports are released immediately into your electronic medical record. You may view this report before your referring provider. If you have questions, please contact your health care provider. BILATERAL SCREENING MAMMOGRAM WITH COMPUTER-AIDED DETECTION AND TOMOSYNTHESIS TECHNIQUE: CC and MLO views were obtained. These mammographic images have been obtained using full-field digital technique. These mammographic images were interpreted with the benefit of computer-aided detection. Breast Tomosynthesis was used in this interpretation. COMPARISON FILM: 11/27/22, 11/26/21, 11/22/20. FINDINGS: The breasts are heterogeneously dense, which may obscure small masses IMPRESSION: There is no radiographic evidence for malignancy. ASSESSMENT: BI-RADS Category 2: Benign RECOMMENDATION: Routine screening mammogram in 1 year. A lay language report of this examination will be provided to the patient. Abdoulaye Hall M.D. Diagnostic Radiologist [email or web address] JG/tr Transcribed: 1:47 p.marge armando/Dictated by: Abdoulaye Hall MD @ 12/08/2023 9:33:00 AM (Electronically Signed)
== END 2023-12-01 07:40 | disposition home or self-care (01) ==
PROVIDERS: PCP Family Medicine; Visit Provider Obstetrics & Gynecology
DX: Z12.31 Encounter for screening mammogram for malignant neoplasm of breast (principal); R92.333 Mammographic heterogeneous density, bilateral breasts
CPT/HCPCS: 77063; 77067

== ENCOUNTER 2023-12-31 13:24 | Outpatient (CLI) | payer OTHER, SELFPAY ==
--- OUTSIDE RECORDS SUMMARY | 2023-12-31 13:28 | XMS_ITS ---
Author Organization [facility] Address [address] [place] [address] Care Team Providers Care Network Planner Name Role Phone Unavailable Unavailable Unavailable Surgery Details Not on file Complications Check Surgery Details section. Procedure Estimated Blood Loss Check Surgery Details section. Procedure Findings Check Surgery Details section. Procedure Specimens Taken Check Surgery Details section.
--- OUTSIDE RECORDS SUMMARY | 2023-12-31 13:28 | XMS_ITS | Encounter Summary ---
Author Organization [place] Address [address] [place] [address] Care Team Providers Care Pellet Preparation Operator Name Role Phone Nicole Becker MD Primary Care Provider + Reason for Referral * Consultation (Routine) - Pending Review Specialty Diagnoses / Procedures Referred By Contac t Referred To Contact Medical Oncology Diagnoses Malignant neoplasm of unspecified part of right bronchus or lung (H) Nicole Becker MD [facility] & [address] [address] Phone: tel: fax: Referral ID Status Reason Start Date Expiration Date V isits Requested Visits Authorized [id number] Pending Review 12/17/2023 12/16/2024 1 1 Question Answer My Clinical Question Is: malignant neoplasm of unspecified part of right bronchus or lung If you have additional clinical questions which require a provider discussion, please call [phone]. Ask for the Chemo only medicine physician. Reason for Referral: Risk Management/Genetic Counseling Patient Scheduling Instructions: [facility] will call you to coordinate your care as prescribed by the provider. If you don? t hear from a tax representative within 2 business days, please call Additional Information: referral recd by email from Ref Spec team./ [facility] insurance Comments referral recd by email from Ref Spec team./ referral recd by fax from Dr Nicole Becker, [facility]/ [facility] not verifying insurance Dr Nicole Becker, [facility] T [phone] F not listed Please be aware that coverage of these services is subject to the terms and limitations of your health insurance plan. Call member services at your health plan with any benefit or coverage questions. [facility] will call you to coordinate your care as prescribed by the provider. If you don? t hear from a tax representative within 2 business days, please call Encounter Details Date Type Department Care Team (Late st Contact Info) Description 12/17/2023 Transcribe Orders GENERIC EXTERNAL DATA DEPARTMENT Provider, Generic External Data Malignant neoplasm of unspecified part of right bronchus or lung (H) (Primary Dx) Social History Tobacco Use Types Packs/Day Years Used Date Smoking Tobacco: Never Assessed Adolescent Education Answer Date Record ed Getting School Help Needed Not on file 11/29 Comments No Sex and Gender Information Value Date Recorded Sex Assigned at Not on file Legal Sex Female 4:30 AM CRITICAL CARE NURSE Gender Identity Not on file Sexual Orientation Not on file documented as of this encounter Plan of Treatment Scheduled Referrals Name Type Priority Associated Diagnoses Orde r Schedule Adult Oncology/Hematology Chemistry Physics Teacher Referral Referral Routine Malignant neoplasm of unspecified part of right bronchus or lung (H) Ordered: 12/17/2023 documented as of this encounter Visit Diagnoses Diagnosis Malignant neoplasm of unspecified part of right bronchus or lung (H)- Primary documented in this encounter Care Teams Pellet Preparation Operator Relationship Specialty Start Date End Date Nicole Becekr MD [facility] & [place] [id number] PCP - General Family Medicine 11/29/22 documented as of this encounter
--- OUTSIDE RECORDS SUMMARY | 2023-12-31 13:28 | XMS_ITS | Clinical Summary ---
Author Organization [facility] Address [address] [place] [address] Care Team Providers Care Weigh And Charge Worker Name Role Phone Nicole Becker MD Primary [...] Penicillin G GI Disturbance Low 04/12/2011 Medications tamsulosin (FLOMAX) 0.4 MG capsule Take 1 capsule (0.4 mg) by mouth daily as needed (As needed until kidney stone passes) 10 capsule 3 Active ondansetron (ZOFRAN ODT) 4 MG ODT tab Take 1 tablet (4 mg) by mouth every 6 hours as needed for nausea 10 tablet 3 Active HYDROcodone-flavia taminophen (NORCO) 5-325 MG tablet Take 1-2 tablets by mouth every 6 hours as needed for severe pain or breakthrough pain 12 tablet 3 Active AIMOVIG 70 MG/ML injection Inject 70 mg Subcutaneous every 30 days Administer of the of the month 3 Active estradiol (ESTRACE) 1 MG tablet Take 1 tablet by mouth at bedtime Active eszopiclone (LUNESTA) 2 MG tablet Take 2 mg by mouth nightly as needed for sleep Active FLUoxetine (PROZAC) 10 MG capsule Take 10 mg by mouth every morning 1 Active SUMAtriptan (IMITREX) 100 MG tablet Take 100 mg by mouth at onset of headache for migraine TAKE 1 TABLET BY MOUTH WITH ONSET OF HEADACHE. MAY REPEAT IN 2 HOURS. MAX OF 2 TABLETS IN 24 HOURS 3 Active topiramate (TOPAMAX) 100 MG tablet Take 100 mg by mouth 2 times daily 3 Active aspirin-acetami nophen-caffeine (EXCEDRIN MIGRAINE) 250-250-65 MG tablet Take 1 tablet by mouth daily as needed for headaches Active Active Problems Problem Noted Date Diagnosed Date Kidney stone 11/30/2022 Encounters Date Type Department Care Team Description 12/17/2023 Transcribe Orders GENERIC EXTERNAL DATA DEPARTMENT Provider, Generic External Data Malignant neoplasm of unspecified part of right bronchus or lung (H) (Primary Dx) 12/17/2023 Transcribe Orders GENERIC EXTERNAL DATA DEPARTMENT Provider, Generic External Data 12/03/2023 Medical Correspondence [facility] Information Management [address] [place] [phone] Scan, Non-Provider from Last 3 Months Social History Tobacco Use Types Packs/Day Years Used Date Smoking Tobacco: Never Assessed Adolescent Education Answer Date Record ed Getting School Help Needed Not on file 11/29 Comments No Sex and Gender Information Value Date Recorded Sex Assigned at Not on file Legal Sex Female 4:30 AM COMPONENT ENGINEER Gender Identity Not on file Sexual Orientation [...] this topic Medical Devices Implanted Type Area Cancer Program Director Device Identifier Shelf Expiration Date Model / Serial / Lot Stent Ureteral Polaris Ultra [id number] - [id number] Implanted:Qty : 1 on 12/01/2022 by Jack Robert MD at [facility] Stent Left: Ureter [employer] [id number] 09/25/2025 [id number] Procedures Procedure Name Priority Date/Time Associated Diagnosis Comments BASIC METABOLIC PANEL Routine 12/02/2022 7:03 AM CDT from Last 3 Months or Most Recently Relevant to Health Maintenance Results * (ABNORMAL) Basic metabolic panel (12/02/2022 7:03 AM CDT) [facility] Sodium 142 135 - 145 mmol/L 12/02/2022 [...] 3.4 - 5.3 mmol/L 12/02/2022 7:40 AM [facility] Chloride 111(H) 98 - 107 mmol/L 12/02/2022 7:40 AM T LABORATORY Carbon Dioxide (CO2) 20(L) 22 - 29 mmol/L 12/02/2022 7:40 AM [facility] Anion Gap 11 7 - 15 mmol/L 12/02/2022 7:40 AM [facility] Urea Nitrogen 15.6 6.0 - 20.0 mg/dL 12/02/2022 7:40 AM [facility] Creatinine 1.18(H) 0.51 - 0.95 mg/dL 12/02/2022 7:40 AM CDT LABORATORY GFR Estimate 55(L) >60 mL/min/1. 73m2 12/02/2022 7:40 AM T LABORATORY Calcium 8.6 8.6 - 10.0 mg/dL 12/02/2022 7:40 AM [facility] Glucose 105(H) 70 - 99 mg/dL 12/02/2022 7:40 AM [facility] Blood STRUCTURE OF LEFT UPPER LIMB / Unknown Venipuncture / Unknown 12/02/2022 7:03 AM CDT 12/02/2022 7:10 AM CDT us Emmett Crawford MD LAB - BLOOD ORDERABLES Final R esult LABORATORY [facility] Acute Care Lab [address] floor, [address] [place] [address], [facility] [phone] from Last 3 Months or Most Recently Relevant to Health Maintenance Advance Directives For more information, please contact: [phone] * Full Code (Latest Code Status on File) Date Activated Date Inactivated Comments 11/30/2022 8:37 PM 12/02/2022 4:06 PM All basic and advanced life-sustaining interventions are performed as appropriate Question Answer Comments Code status determined by: Discussion with sundaye nt/ legal decision maker Care Teams Weigh And Charge Worker Relationship Specialty Start Date End Date Nicole Becker MD [facility] [address] [place] [address] PCP - General Family Medicine 11/29/22
--- OUTSIDE RECORDS SUMMARY | 2023-12-31 13:28 | XMS_ITS | Encounter Summary ---
Author Organization [place] Address [address] [facility] [facility] [address] [place] [address] Care Team Providers Care Furnace Attendant Name Role Phone Nicole Becker MD Primary Care Provider + Encounter Details Date Type Department Care Team (Late st Contact Info) Description 12/17/2023 Transcribe Orders GENERIC EXTERNAL DATA DEPARTMENT Provider, Generic External Data Social History Tobacco Use Types Packs/Day Years Used Date Smoking Tobacco: Never Assessed Adolescent Education Answer Date Record ed Getting School Help Needed Not on file 11/29 Comments No Sex and Gender Information Value Date Recorded Sex Assigned at Not on file Legal Sex Female 4:30 AM TRIMMING PRESS OPERATOR Gender Identity Not on file Sexual Orientation Not on file documented as of this encounter Plan of Treatment Not on file documented as of this encounter Visit Diagnoses Not on filedocumented in this encounter Care Teams Furnace Attendant Relationship Specialty Start Date End Date Nicole Becker MD [facility] [address] [place] [address] PCP - General Family Medicine 11/29/22 documented as of this encounter
--- OUTSIDE RECORDS SUMMARY | 2023-12-31 13:28 | XMS_ITS | Encounter Summary ---
Author Organization [place] Address [address] [facility] [place] [address] Care Team Providers Care Metal Control Worker Name Role Phone Nicole Becker MD Primary Care Provider + Encounter Details Date Type Department Care Team (Late st Contact Info) Description 12/03/2023 Medical Correspondence [facility] Health Information Management [address] 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
--- OUTSIDE RECORDS SUMMARY | 2023-12-31 13:28 | XMS_ITS | Referral Summary ---
Author Organization [facility] Address [address] [place] [address] Care Team Providers Care Sales Promotion Representative Name Role Phone Unavailable Primary Care Provider Unavailabl e Source Comments Patient records contain information from all sites at [facility]. For routine questions regarding patient records, call [phone] during business hours, M-F 8:00 AM - 5:00 PM Central Time. Record requests for emergency care only can be directed to [phone] at any time.[facility] Medications potassium citrate (UROCIT-K) 10 mEq (1,080 [...] on file Legal Sex Female 10:32 AM ANALYTICAL LAB ANALYST Gender Identity Not on file Sexual Orientation Not on file Plan of Treatment Not on file
--- OUTSIDE RECORDS SUMMARY | 2023-12-31 13:28 | XMS_ITS | Clinical Summary ---
Author Organization [facility] Address [address] [place] [address] Care Team Providers Care Bicycle Racer Name Role Phone Unavailable Primary Care Provider Unavailabl e Source Comments Patient records contain information from all sites at [facility]. For routine questions regarding patient records, call [phone] during business hours, M-F 8:00 AM - 5:00 PM Central Time. Record requests for emergency care only can be directed to [phone] at any time[address] Medications potassium citrate (UROCIT-K) 10 mEq (1,080 [...] on file Legal Sex Female 10:32 AM CONTINUOUS MINING MACHINE COAL MINER Gender Identity Not on file Sexual Orientation Not on file Plan of Treatment Health Maintenance Due Date Last Done Comments CT Colonography 1970 Cologuard 1970 Colonoscopy 1970 Colorectal Cancer Screening 1970 FIT 1970 HIV Screening 1970 Hepatitis C Screening 1970 Lipid (Cholesterol) Screening 1970 Mammogram 1970 Cervical/Vaginal Cancer Screening 11/14/2022 11/15/2019 Depression Screening (Annual [...] Completed 11/11/2023, , 11/14/2021, Additional history exists IPV Vaccines Aged Out No longer eligi ble based on patient's age to complete this topic Pneumococcal vaccine (0-64 years) Aged Out No longer eligible based on patient's age to complete this topic
--- OUTSIDE RECORDS SUMMARY | 2023-12-31 13:28 | XMS_ITS | Referral Summary ---
Author Organization [facility] Address [address] [place] [address] Care Team Providers Care [employer] Name Role Phone Nicole Becker MD Primary Care Provider + Encounters Date Type Department Care Team Description 12/17/2023 Transcribe Orders GENERIC EXTERNAL DATA DEPARTMENT Provider, Generic External Data Malignant neoplasm of unspecified part of right bronchus or lung (H) (Primary Dx) 12/17/2023 Transcribe Orders GENERIC EXTERNAL DATA DEPARTMENT Provider, Generic External Data 12/03/2023 Medical Correspondence [facility] Information Management [address] [place] [address] Scan, Non-Provider from Last 3 Months Allergies Active Allergy Reactions Criticality Noted Date [...] needed until kidney stone passes) 10 capsule 10/13/202 3 Active ondansetron (ZOFRAN ODT) 4 MG [...] 30 days Administer of the of the 3 Active estradiol (ESTRACE) 1 MG tablet [...] on file Legal Sex Female 4:30 AM PERMACULTURE CONTRACTOR Gender Identity Not on file Sexual Orientation [...] on file Medical Devices Implanted Type Area Medical Detailist Device Identifier Shelf Expiration Date Model / Serial / Lot Stent Ureteral Polaris Ultra [id number] - [id number] Implanted:Qty : 1 on 12/01/2022 by Jack Robert MD at [facility] Stent Left: Ureter [employer] [id number] 09/25/2025 [id number] Procedures Procedure Name Priority Date/Time Associated Diagnosis Comments BASIC METABOLIC PANEL Routine 12/02/2022 7:03 AM CDT from Last 3 Months or Most Recently Relevant to Health Maintenance Results * (ABNORMAL) Basic metabolic panel (12/02/2022 7:03 AM CDT) [facility] Sodium 142 135 - 145 mmol/L 12/02/2022 [...] - BLOOD ORDERABLES Final R esult LABORATORY [facility] [address], [address] [place] [address], [facility] [phone] from Last 3 Months or Most Recently Relevant to Health Maintenance Advance Directives For more information, please contact: [phone] * Full Code (Latest Code Status on File) Date Activated Date Inactivated Comments 11/30/2022 8:37 PM 12/02/2022 4:06 PM All basic and advanced life-sustaining interventions are performed as appropriate Question Answer Comments Code status determined by: Discussion with zoila nt/ legal decision maker Care Teams [employer] Relationship Specialty Start Date End Date Nicole Becker MD [facility] & [address] [address] PCP - General Family Medicine 11/29/22
--- OUTSIDE RECORDS SUMMARY | 2023-12-31 13:29 | XMS_ITS | Clinical Summary ---
Author Organization [facility] Address [place], [place] [address] Care Team Providers Care Residential Care Facility Manager Name Role Phone [facility] Unavailable Unavailable Pcp, No Primary Care Provider [...] Comments Blood Pressure 110/72 04/23/2017 12:07 PM BODY DESIGN CHECKER Pulse 75 04/23/2017 12:07 PM BODY DESIGN CHECKER Temperature - - Respiratory Rate - - Oxygen Saturation 96% 04/23/2017 12:07 PM BODY DESIGN CHECKER Inhaled Oxygen Concentration - - Weight 78.6 kg (173 lb 4.8 oz) 04/23/2017 12:07 PM BODY DESIGN CHECKER Height - - Body Mass Index - [...] Procedure Name Priority Date/Time Associated Diagnosis Comments LINK MACHINE OPERATOR THIN PREP PAP SCREEN IMAGED Routine 11/15/2019 2:15 PM CDT from Last 3 Months or Most Recently Relevant to Health Maintenance Results * LINK MACHINE OPERATOR THIN PREP PAP SCREEN IMAGED (11/15/2019 2:15 PM CDT) Case Report Gynecologic Cytology Report ? Case: [id number] ? Authorizing Provider: ??Shobha Yen ?Collected: ? 11/15/2019 1415 ? MD Kimberly ? Ordering Location: ? [facility] ?Received: ?11/17/2019 0822 ? First Screen: ?Asmita Doan ? Specimen: ?LINK MACHINE OPERATOR ThinPrep Vial Screening, Cervical/Vaginal ? 11/24/2019 5:31 PM CDT [facility] INTERPRETATION/ RESULT NEGATIVE FOR INTRAEPITHELIAL LESION OR MALIGNANCY (NIL) (none) 11/24/2019 5:31 PM T [facility] IMEN ADEQUACY Satisfactory for evaluation No endocervical component seen 11/24/2019 5:31 PM CDT [facility] HPV REQUEST HPV and PAP 11/24/2019 5:31 PM CDT [facility] Last Pap Date 07/06/2014 11/24/2019 5:31 PM T [facility] Last Pap Result NIL 0 5:31 PM T [facility] Comment:-HPV Menstrual Status 11/24/2019 5:31 PM T [facility] Comment:IUD Additional Information 11/24/2019 5:31 PM CDT [facility] Comment: Interpreted at [facility] - [address], [place] [address] Automated Review Successful 11/24/2019 5:31 PM T [facility] Comment:Specimen processed s uccessfully by automated steam tender device, ThinPrep Imaging System, [employer] ANCILLARY TESTING LINK MACHINE OPERATOR HPV Ordered, Please see separate report 11/24/2019 5:31 PM CDT [facility] Note The pap test [...] and malignant lesions. 11/24/2019 5:31 PM CDT [facility] Other (Cervical/Vagina l) 11/15/2019 2:15 PM CDT 11/17/2019 8:22 AM CDT Shobha Yen MD PATHOLOGY/ [facility]TOLOGY [facility] [address] [place] [address], [place] from Last 3 Months or Most Recently Relevant to Health Maintenance Care Teams Residential Care Facility Manager Relationship Specialty Start Date End Date Pcp, No . PCP - General 04/23/17 [facility] 03/26/17
--- OUTSIDE RECORDS SUMMARY | 2023-12-31 13:29 | XMS_ITS | Clinical Summary ---
Author Organization [facility] Address [address] [place] [address] Care Team Providers Care Hitcher Name Role Phone David Choudhury MD Primary Care Provider [phone] Source Comments You are receiving this document as you are listed as the primary care provider,follow-up provider, or the patient has been referred to you for consultation.This is in compliance with the Medicare and[facility] EHR Incentive Program,which states Providers who transition their patient to another setting of careor provider of care or refers their patient to another provider of care shouldprovide summary care record for each transition of care or referral. [facility] Allergies Active Allergy Reactions Criticality Noted Date [...] (03/09/2021): Added automatically from request for surgery [id number] Impaired glucose tolerance test 03/07/2004 Overview (10/09/2016): [...] Encounters Date Type Department Care Team Description 12/15/2023 E-Visit [facility] [address] [place] [address] Yenifer Martin Provider 12/15/2023 Notes/Orders [facility] [address] [place] [address] Nolan Hernandez, [facility] Family history of gene mutation (Primary Dx) from Last 3 Months Immunizations Name Administration [...] Sex Assigned at Female 02/21/2021 8:36 PM ELECTROTYPER HELPER Gender Identity Female 02/21/2021 8:36 PM ELECTROTYPER HELPER Sexual Orientation Not on file Last Filed [...] 07/18/2023 10:48 AM CDT Plan of Treatment Upcoming Encounters Date Type Department Care Team (Late st Contact Info) Description 01/19/2024 1:30 PM ELECTROTYPER HELPER Appointment [facility] [address] [facility] [place] [address] David Nolan J, [facility] [address] [place] [address] Health Maintenance Due Date Last Done Comments [...] type HGB A1C Routine 03/31/2006 9:50 AM ELECTROTYPER HELPER LIPID PANEL & DIRECT LDL (IF NEEDED) Routine 03/31/2006 9:50 AM ELECTROTYPER HELPER ANATOMICAL PATH LIQUID BASED Routine 03/31/2006 7:31 AM ELECTROTYPER HELPER from Last 3 Months or Most Recently [...] anemia Providers: ? Saúl Kaur, ? Shahla Barry Patient Profile: ? Denies any overt GI [...] saturations were ? monitored continuously. The ? [id number] was introduced through ? the anus and [...] the initial medication ? administration until the ampoule inspector assists with ? initial maneuvers (biopsy / [...] Procedure Code(s): ? --- Professional --- ? 85865, Colonoscopy, flexible; ? diagnostic, including collection of [...] (additional time may ? be reported with 79059, as ? appropriate) ? 68394, Moderate sedation; each ? additional 15 minutes intraservice ? time Diagnosis Code(s): ? --- Professional --- ? K64.8, Other hemorrhoids ? D50.9, Iron deficiency anemia, ? unspecified ? K57.30, Diverticulosis of large ? intestine without perforation or ? abscess without bleeding CPT copyright 2021 [employer]. All rights reserved. The codes documented in this report are preliminary and upon dynamite packing machine operator review may be revised to meet current [...] and oxygen saturations were monitored continuously. The [id number] was introduced through the anus and advanced [...] from the initial medication administration until the ampoule inspector assists with initial maneuvers (biopsy / polypectomy [...] kind referral. Procedure Code(s): --- Professional --- 77360, Colonoscopy, flexible; diagnostic, including collection of specimen(s) by brushing or washing, when performed (separate procedure) G0500, Moderate sedation services provided by the same physician or other qualified health laboratory animal care veterinarian performing a gastrointestinal endoscopic service that sedation supports, requiring the presence of an independent trained observer to assist in the monitoring of the patient's level of consciousness and physiological status; initial 15 minutes of intra-service time; patient age 5 years or older (additional time may be reported with 14565, as appropriate) 93182, Moderate sedation; each additional 15 minutes intraservice time Diagnosis Code(s): --- Professional --- K64.8, Other hemorrhoids D50.9, Iron deficiency anemia, unspecified K57.30, Diverticulosis of large intestine without perforation or abscess without bleeding CPT copyright 2021 [employer]. All rights reserved. The codes documented in this report are preliminary and upon dynamite packing machine operator review may be revised to meet current compliance requirements. Saúl Kaur, 05/06/2023 2:01:33 PM Number of Addenda: 0 Note Initiated On: 05/06/2023 1:07 PM Endoscopy Report Kian BAUER ET GI PROCEDURE ORDE CHITO * Lipid Panel and Direct LDL(If Needed) (03/31/2006 9:50 AM ELECTROTYPER HELPER) Hours Fasting 12.0 Hours HP CONVERSION Cholesterol/HDL Ratio Screen 3.1 No normal range HP CONVERSION Cholesterol 174 <200 mg/dL HP CONVERSION HDL Cholesterol 56 40 - 60 mg/dL HP CONVERSION Triglycerides 111 0 - 149 mg/dL HP CONVERSION LDL Calculated 96 0 - 130 mg/dL HP CONVERSION Comment: 03/31/2006 9:50 AM ELECTROTYPER HELPER Theresa Hardy MD LAB_1 HP CONVERSION * Hgb A1c (03/31/2006 9:50 AM ELECTROTYPER HELPER) HGB A1C 5.4 <6.0 % HP CONVERSION 03/31/2006 9:50 AM ELECTROTYPER HELPER Theresa Hardy MD LAB_1 Performing Organization Address [facility]/ZIP Co de Phone Number HP CONVERSION * Pap Smear (03/31/2006 7:31 AM ELECTROTYPER HELPER) PAP Smear Liquid Based SEE TEXT No normal range HP CONVERSION Comment: Patient: FIFI JOSÉ ? CERVICAL CYTOLOGY REPORT Pathology # ??[id number] ?Date Obtained: ? Date Received: CYTOLOGIC IMPRESSION: Negative for intraepithelial lesion or malignancy. Verified 04/02/06 by: ??MB ? (electronic signature) ? ADDITIONAL DATA LMP: CLINICAL HIST LIQUID BASED PAP CERVICAL SPECIMEN ADEQUACY: ?? Satisfactory. ENDOCERVICAL CELLS: ??Present. 03/31/2006 7:31 AM ELECTROTYPER HELPER Theresa Hardy MD LAB_1 HP CONVERSION from Last 3 Months or Most Recently Relevant to Health Maintenance Advance Directives * Full Code (Latest Code Status on File) Date Activated Date Inactivated Comments 03/16/2021 8:09 PM 03/21/2021 4:25 PM Full code in effect for 30 days Care Teams Hitcher Relationship Specialty Start Date End Date David Choudhury MD [address] [place], [place] [id number] PCP - General Family Practice 03/16/21
--- OUTSIDE RECORDS SUMMARY | 2023-12-31 13:29 | XMS_ITS | Data Portability ---
Author Organization [place] [facility], [facility] Address [address] [place] [address] Care Team Providers Care Acquisition Manager Name Role Phone PEDRO WINTERS Primary Care Provider Assessment Encounter Date Assessment Date Assessment LastModified [...] with K citrate; she will try True Lemon/Marshall for now - would benefit from repeat 24-hr urine assessment - f/u with Dr. Marie or me in [address] stone protocol [email or web address] Not available 03/28/2022 17:04:05 12/09/2022 12/09/2022 - stent removed - stone prevention diet - can f/u PRN [email or web address] Not available 12/09/2022 10:42:45 Plan of Treatment Reminders Order Date Submit Date Provider Last Modified By Organization Details Last Modified Time Details Appointments None recorded . Lab urinalys is, dipstick 2022 023 [email or web address] [facility], [address], [place], [address], 10:24:05 Referral None recorded . Procedures None recorded . Surgeries None recorded . Imaging None recorded . Medication Orders oxycodon e 5 mg tablet 2022 023 [id number], [id number] [facility] [address], [place], [address], 10:00:18 Patient TargetsNo targets recorded. Patient InstructionsNo instructions recorded. Reason for Referral None Reported. Results Created Date Observation Date Name Description Value Unit Range Abnormal Flag Note LastModifiedBy Organization Detail LastModifiedTime 03/28/1903/28/2022 urina lysis , dipst ick Color-Status Yellow Not Available [facility] [address], [place], [address], 03/28/2022 10:21:37 03/28/1903/28/2022 urina lysis , dipst ick Clarity-Stat us Slight ly Cloudy Not Available [facility] [address], [place], [address], 03/28/2022 10:21:37 03/28/1903/28/2022 urina lysis , dipst ick Ketones-Stat us 15 Not Available [facility] [address], [place], [address], 03/28/2022 10:21:37 03/28/19 23 03/28/2022 urina lysis , dipst ick pH-Status 6.5 Not Available [facility] [address], [place], [address], 03/28/2022 10:21:37 03/28/19 23 03/28/2022 urina lysis , dipst ick Protein-Stat us Not Available [facility] [address], [place], [address], 03/28/2022 10:21:37 03/28/19 23 03/28/2022 urina lysis , dipst ick Nitrates-Sta tus negati ve Not Available [facility] [address], [place], [address], 03/28/2022 10:21:37 03/28/19 23 03/28/2022 urina lysis , dipst ick Blood-Status Trace Not Available [facility] [address], [place], [address], 03/28/2022 10:21:37 03/28/19 23 03/28/2022 urina lysis , dipst ick Leuko-Status Trace Not Available [facility] [address], [place], [address], 03/28/2022 10:21:37 03/28/19 23 03/28/2022 urina lysis , dipst ick Specimen Type Voided Not Available [facility] [address], [place], [address], 03/28/2022 10:21:37 Result Notes None recorded. Problems Name Problem SNOMED Code Status Onset Date Resolution Date Notes Provider Name and Address Organization Details Recorded Time Ureteric stone 43582745 Active 023 Jack irwin MD, PHD [address] [place] [address], [address] , [facility] 3 10:42:22 Problem Notes None recorded. Procedures Surgical History Date Name Laterality Status Provider Name and Address Organization Details Recorded Time 12/10/19 Cystoscopy with foreign body/stent removal completed Jack Robert MD, PHD [address] [place] [phone], [facility] 12/09/2022 10:42:11 12/10/19 Cipro post Cysto completed Adela Mistry [facility] 12/09/2022 10:34:39 07/19/19 repair of stress incontinence by suprapubic sling completed Danna Buck [facility] 03/28/2022 10:18:41 09/18/19 11 ultrasonic fragmentation of urinary stone through percutaneous nephrostomy completed Danna Buck [facility] 03/28/2022 10:19:27 lobectomy completed Danna [facility] 03/28/2022 10:19:41 Imaging Results None recorded. Procedure Notes None recorded. Medical Equipment None Reported. Allergies Allergen ID Allergen Name Allergen Category Reaction Reaction Severity Criticality Documentation Date Start Date Code Code System Note Provider Name and Address Organization Details Recorded Time 803856 Augmentin medicatio n Not available Not available Not available 08/05/20192011 94615 2 RxNorm Not Available [facility] 0 00:42:34 968279 Keflex medicatio n Not available Not available Not available 08/05/2019201716 7 RxNorm Not Available [facility] 0 00:42:34 781260 Vibramyci n medicatio n Not available Not available Not available 08/05/2019201797 5 RxNorm Not Available [facility] 0 00:42:34 759641 Penicilli n Not available Not available Not available Not available 08/05/20192011 56123 RxNorm Not Available [facility] 0 00:42:34 184514 doxycycli ne Not available Not available Not available Not available 03/28/2022 3640 RxNorm Danna Buck [place], [place] [facility] 3 10:12:33 Medications Name Sig Start [...] Updated DateTime 03/28/2022 152.4 cm 31.2 kg/m2 26941.78 g Danna Buck [facility] 03/28/2022 10:12:06 Date Recorded Body height Body mass index (BMI) Body weight Provider Name and Address Organization Details Last Updated DateTime 12/09/2022 152.4 cm 32.2 kg/m2 71436.74 g Solangejay Rosenbergson [facility] 12/09/2022 09:59:04 Social History Question Answer Notes LastModified by Organizat ion Details LastModified Time Tobacco Smoking Status [facility] 03/28/2022 10:17:41 What Is Your Level Of Alcohol Consumption? Occasional Very Rarely [email or web address] Information not available 03/28/2022 What Is Your Level Of Caffeine Consumption? Occasional Very Rarely [email or web address] Information not available 03/28/2022 Race White Information no t available 12/09/2022 Ethnicity Not /Latin o Information not available 12/09/2022 Preferred Language Welsh Information not available 12/09/2022 What Was The Date Of Your Most Recent Tobacco Screening? 12/09/2022 Information not available 12/09/2022 Do You Use Any Illicit Or Recreational Drugs? No [email or web address] Information not available 03/28/2022 Sex: Unknown Functional Status None recorded. Mental Status None recorded. Family History Relationship Description Onset Age of this Age Resolved Age Notes LastModified by Organization Details LastModified Time Father Family history of malignant neoplasm 56 non hodgki n lympho ma [email or web address] Not available 03/28/2022 10:17:13 Medical History Condition Response Diabetes N Sexually Transmitted Infection N Bleeding Disorder N High Blood Pressure [...] quadrivalent, preservative 11/15/2020 completed Mariajose Lopez null, [facility] 12/02/2022 11:19:57 zoster recombinant 11/27/2021 completed Mariajose Lopez null, [facility] 12/02/2022 11:19:58 zoster recombinant 01/28/2022 [facility]/02/2022 11:19:58 MMR 07/07/2017 [facility] 12/02/2022 11:19:58 COVID-19, mRNA, LNP-S, PF, 30 mcg/0.3 mL dose 02/29/2020 [facility] 12/02/2022 11:19:58 COVID-19, mRNA, LNP-S, PF, 30 mcg/0.3 mL dose 05/29/2021 [facility] 11:19:58 COVID-19, mRNA, LNP-S, PF, 30 mcg/0.3 mL dose 11/15/2020 completed [facility] 12/02/2022 11:19:58 COVID-19, mRNA, LNP-S, PF, 30 mcg/0.3 mL dose 02/09/2020 completed [facility] 12/02/2022 11:19:58 COVID-19, mRNA, LNP-S, bivalent, PF, 30 mcg/0.3 mL dose 11/14/2021 completed [facility] 12/02/2022 11:19:58 influenza, unspecified formulation 09/30/2018 [facility] 12/02/2022 11:19:58 influenza, unspecified formulation 10/20/2008 [facility] 12/02/2022 11:19:58 influenza, unspecified formulation 11/11/2009 [facility] 12/02/2022 11:19:58 influenza, unspecified formulation 11/20/2005 completed Mariajose Almejere null, [facility] 12/02/2022 11:19:58 influenza, unspecified formulation 11/20/2006 completed Mariajose Almejere null, [facility] 12/02/2022 11:19:58 influenza, unspecified formulation 12/25/2004 completed Mariajose Almejere null, [facility] 12/02/2022 11:19:58 influenza, unspecified formulation 01/24/2004 completed Mariajose Almejere null, [facility] 12/02/2022 11:19:58 Tdap 11/10/2013 completed Mariajose Almejere null, [facility] 12/02/2022 11:19:58 Influenza, split virus, trivalent, preservative 11/10/2013 completed Mariajose Almejere null, [facility] 12/02/2022 11:19:58 Influenza, split virus, trivalent, preservative 12/07/2007 completed Mariajose Almejere null, [facility] 12/02/2022 11:19:58 Influenza, split virus, trivalent, PF 10/30/2011 completed Mariajose Almejere null, [facility] 12/02/2022 11:19:58 Influenza, split virus, trivalent, PF 11/02/2012 completed Mariajose Almejere null, [facility] 12/02/2022 11:19:58 Influenza, split virus, trivalent, PF 11/07/2010 completed Mariajose Almejere null, [facility] 12/02/2022 11:19:58 Influenza, split virus, trivalent, PF 11/10/2014 completed Mariajose Almejere null, [facility] 12/02/2022 11:19:58 Influenza, split virus, trivalent, PF 11/19/2017 completed Mariajose Almejere null, [facility] 12/02/2022 11:19:58 Influenza, split virus, trivalent, PF 11/24/2019 completed Mariajose Almejere null, [facility] 12/02/2022 11:19:58 Novel [id number] 12/28/2008 completed Mariajose Ledezmare null, [facility] 12/02/2022 11:19:58 Td (adult), 5 Lf tetanus toxoid, preservative free, adsorbed 10/26/2018 completed Mariajose Dodsonejere null, [facility] 12/02/2022 11:19:58 Td (adult), 2 Lf tetanus toxoid, preservative free, adsorbed 03/18/2005 completed Mariajose Almejere null, [facility] 12/02/2022 11:19:58 Td (adult), 2 Lf tetanus toxoid, preservative free, adsorbed 02/17/1996 [facility] 11:19:58 Hep A, adult 03/27/2011 [facility]22 11:19:58 Hep A, adult 10/03/2011 completed Mariajose Ledezmare null, [facility] 12/02/2022 11:19:58 Influenza, split virus, quadrivalent, PF 11/08/2016 completed Mariajose Dodsonejere null, [facility] 12/02/2022 11:19:58 Influenza, split virus, quadrivalent, PF 11/14/2021 [facility] 11:19:58 Influenza, split virus, quadrivalent, PF 12/28/2008 [facility]2022 11:19:58 COVID-19, mRNA, LNP-S, PF, barbara-sucrose, 30 mcg/0.3 mL 11/18/2022 [facility] 12/[facility]2022 12:36:45 Past Encounters Encounter ID Performer Location Encounter Start Date Encounter Closed Date Diagnosis/Indication Diagnosis SNOMED-CT Code Diagnosis ICD10 Code [id number] Teresa Montoya PA-C [facility] [address] [place], [place] [address] 03/28/2022 10:00:29 04/01/2022 10:20:38 Ureteric stone 03212002 N20.1 [id number] Jack irwin MD, PHD _[facility] [address] [facility] [address] [place] [address] 12/09/2022 09:43:12 12/18/2022 17:53:40 Ureteric stone 97498068 N20.1 Health Concerns Section Related Observation LastModified by Organization Detai ls LastModified Time None Recorded Concern Status LastModified by Organization Details LastModified Time None Recorded Advance Directives Directive None Recorded Payers Encounter Date Sequence Insurance Name Policy Number Policy Kyle Covered Member ID Kyle Member ID Guarantor Name 03/28/2022 1 PREFERREDONE [id number] Fifi Kasper [id number] Fifi Kasper 12/09/2022 1 PREFERREDONE [id number] Fifi Kasper [id number] Fifi Kasper Notes Date Note Type Note Provider Name and Address Organization Details Recorded Time 03/28/2022 text/html 52F with right flank pain. History of calcium oxalate stones, first 1995. Patient of Dr. Marie. 04/23/17 (PF):Developed left flank pain in February 2017. CT scan (03/14/17) revealed a 7 mm Left UVJ stone and bilateral small kidney stones. She had ESWL in 2010. Son has renal tubular acidosis.??03/28/22 (LB):Was to f/u with Dr. Marie in 1 [...] 15, trace blood, protein 30, trace leuks Labs:(reviewed)24 Hr urine (03/27/17) - low UO (1.36 L) - low Citrate (180 mg)- normal - Calcium (201 mg) - Oxalate (20 mg) - Mg (97 mg) - Phos (0.503) - Uric acid (0.353)??PTH - 73 (03/18/17) - highCalcium - 9.1 (03/18/17) - normal Imaging:(reviewed) 03/14/17 CT A/P: Left - 7 mm stone (UVJ) - 2 mm stone (upper pole) - 3 mm stone (lower pole)- Right - 2 (2 mm) stones (mid-pole)03/27/22 CT A/P: 5 mm distal right ureteral stone with hydro; Left - 6 mm upper to midpole stone, 2 punctate lower pole stones; Right - 4-5 mm lower pole stone, 3 punctate midpole stones PMH:lung cancer, kidney stonesPSH:right lower lobectomy, ESWL Soc:Occ:Tobacco:Et [place]: FHx: Teresa Montoya PA-C [address] [place] [address],[address], [place], [address], [facility] 03/28/2022 17:04:38 12/09/2022 text/html 52F with kidney stones. 12/01/22: left URS/HLL/stent for 8 mm UVJ stone Here for stent removal. Has bladder spasms. Jack Robert MD, PHD [address] [place] [address],[address], [place], [address], [facility] 12/09/2022 10:42:55 OBGyn Episode No OBEpisode recorded.
--- OUTSIDE RECORDS SUMMARY | 2023-12-31 13:29 | XMS_ITS | Encounter Summary ---
Author Organization [facility] Address [address] [place] [address] Care Team Providers Care Yolk Spray Drier Name Role Phone David Choudhury MD Primary Care Provider [phone] Reason for Referral * Consult/Transfer Care (Routine) - New Request Specialty Diagnoses / Procedures Referred By Maria Luz polanco Referred To Contact Diagnoses Family history of gene mutation Nolan Hernandez, [facility] [address] [place] [address] Referral ID Status Reason Start Date Expiration Date V isits Requested Visits Authorized [id number] New Request 12/15/2023 03/15/2025 1 1 Scheduling Instructions Your clinician has recommended an appointment with [facility]. You may call [phone] to schedule your appointment. We suggest you call your health insurance company about your coverage and benefits for this appointment. Question Answer Appointment Urgency? Non-Urgent Reason for visit? Family history of TP53 positive (1st cousin) Encounter Details Date Type Department Care Team (Late st Contact Info) Description 12/15/2023 Notes/Orders [facility] On[facility] Genetic Services [address] [place] [address] Nolan Hernandez [address] [address] Family history of gene mutation (Primary Dx) Social History Tobacco Use Types Packs/Day Years Used Date Smoking Tobacco: Never Smokeless Tobacco: Never Alcohol Use Standard Drinks/Week Comments Not Currently 0 (1 standard drink = 0.6 oz pur e alcohol) rare usage Sex and Gender Information Value Date Recorded Sex Assigned at Female 02/21/2021 8:36 PM PAINT FORMULATOR Gender Identity Female 02/21/2021 8:36 PM PAINT FORMULATOR Sexual Orientation Not on file documented as of this encounter Plan of Treatment Upcoming Encounters Date Type Department Care Team (Late st Contact Info) Description 01/19/2024 1:30 PM PAINT FORMULATOR Appointment [facility] [address] [place] [address] Nolan Hernandez [address] [address] Scheduled Referrals Name Type Priority Associated Diagnoses Orde r Schedule Genetic Counseling (Oncology) Referral Routine Family history of gene mutation Ordered: 12/15/2023 documented as of this encounter Visit Diagnoses Diagnosis Family history of gene mutation- Primary documented in this encounter Care Teams Yolk Spray Drier Relationship Specialty Start Date End Date David Choudhury MD [address] [place] [address] PCP - General Family Practice 03/16/21 documented as of this encounter
--- OUTSIDE RECORDS SUMMARY | 2023-12-31 13:29 | XMS_ITS | Encounter Summary ---
Author Organization [facility] Address [address] [place] [address] Care Team Providers Care Refinisher Name Role Phone David Chuodhury MD Primary Care Provider [phone] Encounter Details Date Type Department Care Team (Late st Contact Info) Description 12/15/2023 E-Visit [facility] Genetic Services [address] [place] [address] [place] [address] Social History Tobacco Use Types Packs/Day Years Used Date Smoking Tobacco: Never Smokeless Tobacco: Never Alcohol Use Standard Drinks/Week Comments Not Currently 0 (1 standard drink = 0.6 oz pur e alcohol) rare usage Sex and Gender Information Value Date Recorded Sex Assigned at Female 02/21/2021 8:36 PM GUEST SERVICE AIDE Gender Identity Female 02/21/2021 8:36 PM GUEST SERVICE AIDE Sexual Orientation Not on file documented as of this encounter Plan of Treatment Upcoming Encounters Date Type Department Care Team (Late Contact Info) Description 01/19/2024 1:30 PM GUEST SERVICE AIDE Appointment [facility] Genetic Services [address] [place] [address] Nolan Hernandez, [facility] [address] [place] [address] documented as of this encounter Visit Diagnoses Not on filedocumented in this encounter Care Teams Refinisher Relationship Specialty Start Date End Date David Choudhury MD [address] [place] [address] PCP - General Family Practice 03/16/21 documented as of this encounter
--- NOTE | 2024-01-14 08:48 | W.PM.SLEEP ---
Sleep Study Details Details Interpreting Provider: Rupa Date of Sleep Study: 12/31/23 Sleep Study Details: STUDY TYPE:? Home unattended ? BMI:? 32.2 ORDERING PROVIDER:? Rupa INDICATION:? Concern about sleep apnea ? SLEEP SUMMARY:? 484 minutes monitored RESPIRATORY SUMMARY:? AHI 16.1 Low oxygen 84 1.8% of study oxygen less than 90% Snoring 98% PERIODIC LIMB MOVEMENTS OF SLEEP:? Not recorded CARDIAC:? Range 55-95, mean 71.6 IMPRESSION:? Moderate obstructive sleep apnea RECOMMENDATION: Treatment options include CPAP AutoSet dental appliance and/or airway expansion surgery.
== END 2023-12-31 13:25 | disposition home or self-care (01) ==
LOC: SLEEP 13:26
PROVIDERS: PCP Family Medicine; Visit Provider Otolaryngology
DX: G47.33 Obstructive sleep apnea (adult) (pediatric) (principal)
CPT/HCPCS: 95806

== ENCOUNTER 2024-01-06 08:48 | Outpatient (CLI) | payer OTHER, SELFPAY ==
--- OUTSIDE RECORDS SUMMARY | 2024-01-06 08:51 | XMS_ITS | Encounter Summary ---
Author Organization [facility] Address [address] [place] [address] Care Team Providers Care Rod Mill Tender Name Role Phone Nicole Becker MD Primary Care Provider + Reason for Referral * Consultation (Routine) - Pending Review Specialty Diagnoses / Procedures Referred By Contzahra t Referred To Contact Medical Oncology Diagnoses Malignant neoplasm of unspecified part of right bronchus or lung (H) Nicole Becker MD [facility] & [address] [address] Phone: tel: fax: Referral ID Status Reason Start Date Expiration Date V isits Requested Visits Authorized [id number] Pending Review 12/17/2023 12/16/2024 1 1 Question Answer My Clinical Question Is: malignant neoplasm of unspecified part of right bronchus or lung If you have additional clinical questions which require a provider discussion, please call [phone]. Ask for the Chemo only medicine physician. Reason for Referral: Risk Management/Genetic Counseling Patient Scheduling Instructions: [facility] will call you to coordinate your care as prescribed by the provider. If you don t hear from a sales representative jewelry within 2 business days, please call Additional Information: referral recd by email from Ref Spec team./ referral recd by fax from Dr Nicole Becker, [facility] not verifying insurance Comments referral recd by email from Ref Spec team./ referral recd by fax from Dr Nicole Becker, [facility]/ [facility] not verifying insurance Dr Nicole Becker, [facility] T [phone] F not listed Please be aware that coverage of these services is subject to the terms and limitations of your health insurance plan. Call member services at your health plan with any benefit or coverage questions. [facility] will call you to coordinate your care as prescribed by the provider. If you don t hear from a sales representative jewelry within 2 business days, please call Encounter [...] on file Legal Sex Female 4:30 AM VEHICLE DETAILER Gender Identity Not on file Sexual Orientation Not on file documented as of this encounter Plan of Treatment Scheduled Referrals Name Type Priority Associated Diagnoses Orde r Schedule Adult Oncology/Hematology Gut Sorter Referral Referral Routine Malignant neoplasm of unspecified part of right bronchus or lung (H) Ordered: 12/17/2023 documented as of this encounter Visit Diagnoses Diagnosis Malignant neoplasm of unspecified part of right bronchus or lung (H)- Primary documented in this encounter Care Teams Rod Mill Tender Relationship Specialty Start Date End Date Nicole Becker MD [facility] [place] [facility] [place] [address] PCP - General Family Medicine 11/29/22 documented as of this encounter
--- OUTSIDE RECORDS SUMMARY | 2024-01-06 08:51 | XMS_ITS | Encounter Summary ---
Author Organization [facility] Address [address] [place] [address] Care Team Providers Care Cook Helper Preserves Name Role Phone David Choudhury MD Primary Care Provider [phone] Reason for Referral * Consult/Transfer Care (Routine) - New Request Specialty Diagnoses / Procedures Referred By Maria Luz polanco Referred To Contact Diagnoses Family history of gene mutation Nolan Hernandez, [facility] [address] [place] [address] Referral ID Status Reason Start Date Expiration Date V isits Requested Visits Authorized [id number] New Request 12/15/2023 03/15/2025 1 1 Scheduling Instructions Your clinician has recommended an appointment with [facility]. You may call [phone] to schedule your appointment. We suggest you call your health insurance company about your coverage and benefits for this appointment. Question Answer Appointment Urgency? Non-Urgent Reason for visit? Family history of TP53 positive (1st cousin) Encounter Details Date Type Department Care Team (Late st Contact Info) Description 12/15/2023 Notes/Orders [facility] Oncology Genetic Services [address] [place] [address] Nolan Hernandez [address] [address] Family history of gene mutation (Primary Dx) Social History Tobacco Use Types Packs/Day Years Used Date Smoking Tobacco: Never Smokeless Tobacco: Never Alcohol Use Standard Drinks/Week Comments Not Currently 0 (1 standard drink = 0.6 oz pur e alcohol) rare usage Sex and Gender Information Value Date Recorded Sex Assigned at Female 02/21/2021 8:36 PM ALIGNING INSPECTOR Gender Identity Female 02/21/2021 8:36 PM ALIGNING INSPECTOR Sexual Orientation Not on file documented as of this encounter Plan of Treatment Upcoming Encounters Date Type Department Care Team (Late st Contact Info) Description 01/19/2024 1:30 PM ALIGNING INSPECTOR Appointment [facility] Oncology Genetic Services [address] [place] [address] Nolan Hernandez [address] [address] Scheduled Referrals Name Type Priority Associated Diagnoses Orde r Schedule Genetic Counseling (Oncology) Referral Routine Family history of gene mutation Ordered: 12/15/2023 documented as of this encounter Visit Diagnoses Diagnosis Family history of gene mutation- Primary documented in this encounter Care Teams Cook Helper Preserves Relationship Specialty Start Date End Date David Choudhury MD [address] [place] [address] PCP - General Family Practice 03/16/21 documented as of this encounter
--- OUTSIDE RECORDS SUMMARY | 2024-01-06 08:51 | XMS_ITS | Clinical Summary ---
Author Organization [facility] Address [address] [place] [address] Care Team Providers Care Principal Automation Engineer Name Role Phone David Choudhury MD Primary Care Provider [phone] Source Comments You are receiving this document as you are listed as the primary care provider,follow-up provider, or the patient has been referred to you for consultation.This is in compliance with the Medicare and[facility] Hospital[facility] EHR Incentive Program,which states Providers who transition their patient to another setting of careor provider of care or refers their patient to another provider of care shouldprovide summary care record for each transition of care or referral. [facility] Allergies Active Allergy Reactions Criticality Noted Date [...] (03/09/2021): Added automatically from request for surgery [id number] Impaired glucose tolerance test 03/07/2004 Overview (10/09/2016): [...] Type Department Care Team Description 12/15/2023 E-Visit [facility] Oncology Genetic Services [address] [place] [address] Yenifer Martin Provider 12/15/2023 Notes/Orders [facility] Oncology Genetic Services [address] [place] [address] Nolan Hernandez, [facility] Family history of gene mutation (Primary Dx) [...] Sex Assigned at Female 02/21/2021 8:36 PM BACKGROUND CHECK COORDINATOR Gender Identity Female 02/21/2021 8:36 PM BACKGROUND CHECK COORDINATOR Sexual Orientation Not on file Last Filed Vital Signs Vital Sign Reading Time Taken Comments Blood Pressure 127/77 08/08/2023 12:58 PM CDT Pulse 74 08/08/2023 12:58 PM CDT Temperature 36.8 C (98.3 F) 08/08/2023 12:58 PM CDT Respiratory Rate 16 07/18/2023 11:30 AM CDT Oxygen Saturation 94% 07/18/2023 11:30 AM CDT Inhaled Oxygen Concentration - - Weight 73.5 kg (162 lb) 08/08/2023 12:58 PM CDT Height 152.4 cm (5') 07/18/2023 10:48 AM CDT Body Mass Index 31.64 07/18/2023 10:48 AM CDT Plan of Treatment Upcoming Encounters Date Type Department Care Team (Late st Contact Info) Description 01/19/2024 1:30 PM BACKGROUND CHECK COORDINATOR Appointment [facility] Oncology Genetic Services [address] [place] [address] Nolan Hernandez, [facility] [address] [place] [address] Health Maintenance Due Date Last Done Comments [...] patient's age to complete this topic RSV Aged Out No longer eligi ble [...] type HGB A1C Routine 03/31/2006 9:50 AM BACKGROUND CHECK COORDINATOR LIPID PANEL & DIRECT LDL (IF NEEDED) Routine 03/31/2006 9:50 AM BACKGROUND CHECK COORDINATOR ANATOMICAL PATH LIQUID BASED Routine 03/31/2006 7:31 AM BACKGROUND CHECK COORDINATOR from Last 3 Months or Most Recently [...] and oxygen saturations were monitored continuously. The [id number] was introduced through the anus and advanced [...] from the initial medication administration until the improvement director assists with initial maneuvers (biopsy / polypectomy [...] kind referral. Procedure Code(s): --- Professional --- 51679, Colonoscopy, flexible; diagnostic, including collection of specimen(s) by brushing or washing, when performed (separate procedure) G0500, Moderate sedation services provided by the same physician or other qualified health personal care attendant performing a gastrointestinal endoscopic service that sedation supports, requiring the presence of an independent trained observer to assist in the monitoring of the patient's level of consciousness and physiological status; initial 15 minutes of intra-service time; patient age 5 years or older (additional time may be reported with 70561, as appropriate) [address], Moderate sedation; each additional 15 minutes intraservice time Diagnosis Code(s): --- Professional --- K64.8, Other hemorrhoids D50.9, Iron deficiency anemia, unspecified K57.30, Diverticulosis of large intestine without perforation or abscess without bleeding CPT copyright 2021 [employer]. All rights reserved. The codes documented in this report are preliminary and upon brand ambassadors promotional sales review may be revised to meet current compliance requirements. Saúl Kaur, 05/06/2023 2:01:33 PM Number of Addenda: 0 Note Initiated On: 05/06/2023 1:07 PM Endoscopy Report Procedure Note Saúl Kaur MD [...] and oxygen saturations were monitored continuously. The [id number] was introduced through the anus and advanced [...] from the initial medication administration until the improvement director assists with initial maneuvers (biopsy / polypectomy [...] kind referral. Procedure Code(s): --- Professional --- 62933, Colonoscopy, flexible; diagnostic, including collection of specimen(s) by brushing or washing, when performed (separate procedure) G0500, Moderate sedation services provided by the same physician or other qualified health personal care attendant performing a gastrointestinal endoscopic service that sedation supports, requiring the presence of an independent trained observer to assist in the monitoring of the patient's level of consciousness and physiological status; initial 15 minutes of intra-service time; patient age 5 years or older (additional time may be reported with 00013, as appropriate) [address]9915, Moderate sedation; each additional 15 minutes intraservice time Diagnosis Code(s): --- Professional --- K64.8, Other hemorrhoids D50.9, Iron deficiency anemia, unspecified K57.30, Diverticulosis of large intestine without perforation or abscess without bleeding CPT copyright 2021 [employer]. All rights reserved. The codes documented in this report are preliminary and upon brand ambassadors promotional sales review may be revised to meet current compliance requirements. Saúl Kaur, 05/06/2023 2:01:33 PM Number of Addenda: 0 Note Initiated On: 05/06/2023 1:07 PM Endoscopy Report Kian BAUER ET GI PROCEDURE ORDE CHITO * Lipid Panel and Direct LDL(If Needed) (03/31/2006 9:50 AM BACKGROUND CHECK COORDINATOR) Hours Fasting 12.0 Hours HP CONVERSION Cholesterol/HDL Ratio Screen 3.1 No normal range HP CONVERSION Cholesterol 174 <200 mg/dL HP CONVERSION HDL Cholesterol 56 40 - 60 mg/dL HP CONVERSION Triglycerides 111 0 - 149 mg/dL HP CONVERSION LDL Calculated 96 0 - 130 mg/dL HP CONVERSION Comment: 03/31/2006 9:50 AM BACKGROUND CHECK COORDINATOR Threesa Hardy MD LAB_1 HP CONVERSION * Hgb A1c (03/31/2006 9:50 AM BACKGROUND CHECK COORDINATOR) HGB A1C 5.4 <6.0 % HP CONVERSION 03/31/2006 9:50 AM BACKGROUND CHECK COORDINATOR Theresa Hardy MD LAB_1 HP CONVERSION * Pap Smear (03/31/2006 7:31 AM BACKGROUND CHECK COORDINATOR) PAP Smear Liquid Based SEE TEXT No normal range HP CONVERSION Comment: Patient: FIFI JOSÉ CERVICAL CYTOLOGY REPORT Pathology # [id number] Date Obtained: Date Received: CYTOLOGIC IMPRESSION: Negative for intraepithelial lesion or malignancy. Verified 04/02/06 by: ENRIQUE (electronic signature) ADDITIONAL DATA LMP: CLINICAL HIST LIQUID BASED PAP CERVICAL SPECIMEN ADEQUACY: Satisfactory. ENDOCERVICAL CELLS: Present. 03/31/2006 7:31 AM BACKGROUND CHECK COORDINATOR Theresa Hardy MD LAB_1 HP CONVERSION from Last 3 Months or Most Recently Relevant to Health Maintenance Advance Directives * Full Code (Latest Code Status on File) Date Activated Date Inactivated Comments 03/16/2021 8:09 PM 03/21/2021 4:25 PM Full code in effect for 30 days Care Teams Principal Automation Engineer Relationship Specialty Start Date End Date David Choudhury MD [address] [place], [place] [id number] PCP - General Family Practice 03/16/21
--- OUTSIDE RECORDS SUMMARY | 2024-01-06 08:51 | XMS_ITS | Clinical Summary ---
Author Organization [facility] Address [address] [place] [address] Care Team Providers Care Director Of Catering Name Role Phone Nicole Becker MD Primary [...] Provider, Generic External Data 12/03/2023 Medical Correspondence [facility] Information Management [address] [place] [phone] Scan, Non-Provider from Last 3 Months Social History Tobacco Use Types Packs/Day Years Used Date Smoking Tobacco: Never Assessed Adolescent Education Answer Date Record ed Getting School Help Needed Not on file 11/29 Comments No Sex and Gender Information Value Date Recorded Sex Assigned at Not on file Legal Sex Female 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 Stent Left: Ureter [email or web address] [id number] 09/25/2025 [id number] Procedures Procedure Name Priority Date/Time Associated Diagnosis Comments BASIC METABOLIC PANEL Routine 12/02/2022 7:03 AM CDT from Last 3 Months or Most Recently Relevant to Health Maintenance Results * (ABNORMAL) Basic metabolic panel (12/02/2022 7:03 AM CDT) [facility] Sodium 142 135 - 145 mmol/L 12/02/2022 7:40 AM [facility] Comment:Reference intervals for this test were updated on 11/12/2022 to more accurately reflect our healthy population. There may be differences in the flagging of prior results with similar values performed with this method. Interpretation of those prior results can be made in the context of the updated reference intervals. Potassium 3.9 3.4 - 5.3 mmol/L 12/02/2022 7:40 AM [facility] Chloride 111(H) 98 - 107 mmol/L 12/02/2022 7:40 AM [facility] Carbon Dioxide (CO2) 20(L) 22 - 29 mmol/L 12/02/2022 7:40 AM [facility] Anion Gap 11 7 - 15 mmol/L 12/02/2022 7:40 AM [facility] Urea Nitrogen 15.6 6.0 - 20.0 mg/dL 12/02/2022 7:40 AM [facility] Creatinine 1.18(H) 0.51 - 0.95 mg/dL 12/02/2022 7:40 AM [facility] GFR Estimate 55(L) >60 mL/min/1. 73m2 12/02/2022 7:40 AM [facility] Calcium 8.6 8.6 - 10.0 mg/dL 12/02/2022 7:40 AM [facility] Glucose 105(H) 70 - 99 mg/dL 12/02/2022 7:40 AM [facility] Blood STRUCTURE OF LEFT UPPER LIMB / Unknown Venipuncture / Unknown 12/02/2022 7:03 AM CDT 12/02/2022 7:10 AM CDT us Emmett Crawford MD LAB - BLOOD ORDERABLES Final R esult LABORATORY [facility] Acute Care Lab [address] floor, [address] [place] [address], [facility] [phone] from Last 3 Months or Most Recently Relevant to Health Maintenance Advance Directives For more information, please contact: [phone] * Full Code (Latest Code Status on File) Date Activated Date Inactivated Comments 11/30/2022 8:37 PM 12/02/2022 4:06 PM All basic and advanced life-sustaining interventions are performed as appropriate Question Answer Comments Code status determined by: Discussion with sundaye nt/ legal decision maker Care Teams Director Of Catering Relationship Specialty Start Date End Date Nicole Becker MD [facility] [address] [place] [address] PCP - General Family Medicine 11/29/22
--- OUTSIDE RECORDS SUMMARY | 2024-01-06 08:51 | XMS_ITS | Encounter Summary ---
Author Organization [facility] Address [address] [place] [address] Care Team Providers Care Payment Rep Name Role Phone David Choudhury MD Primary Care Provider [phone] Encounter Details Date Type Department Care Team (Late st Contact Info) Description 12/15/2023 E-Visit [facility] Oncology Genetic Services [address] [place] [address] [place] [address] Social History Tobacco Use Types Packs/Day Years Used Date Smoking Tobacco: Never Smokeless Tobacco: Never Alcohol Use Standard Drinks/Week Comments Not Currently 0 (1 standard drink = 0.6 oz pur e alcohol) rare usage Sex and Gender Information Value Date Recorded Sex Assigned at Female 02/21/2021 8:36 PM LIVESTOCK YARD ATTENDANT Gender Identity Female 02/21/2021 8:36 PM LIVESTOCK YARD ATTENDANT Sexual Orientation Not on file documented as of this encounter Plan of Treatment Upcoming Encounters Date Type Department Care Team (Late Contact Info) Description 01/19/2024 1:30 PM LIVESTOCK YARD ATTENDANT Appointment [facility] Oncology Genetic Services [address] [place] [address] Nolan Hernandez, [facility] [address] [place] [address] documented as of this encounter Visit Diagnoses Not on filedocumented in this encounter Care Teams Payment Rep Relationship Specialty Start Date End Date David Choudhury MD [address] [place] [address] PCP - General Family Practice 03/16/21 documented as of this encounter
--- OUTSIDE RECORDS SUMMARY | 2024-01-06 08:51 | XMS_ITS | Encounter Summary ---
Author Organization [facility] Address [address] 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 [address] [place] [address] PCP - General Family Medicine 11/29/22 documented as of this encounter
--- OUTSIDE RECORDS SUMMARY | 2024-01-06 08:51 | XMS_ITS ---
Author Organization [facility] Address [address] [place] [address] Care Team Providers Care Powered Bridge Specialist Name Role Phone Unavailable Unavailable Unavailable Surgery Details Not on file Complications Check Surgery Details section. Procedure Estimated Blood Loss Check Surgery Details section. Procedure Findings Check Surgery Details section. Procedure Specimens Taken Check Surgery Details section.
--- OUTSIDE RECORDS SUMMARY | 2024-01-06 08:51 | XMS_ITS | Clinical Summary ---
Author Organization [facility] Address [address] [place] [address] Care Team Providers Care Manager State Name Role Phone Unavailable Primary Care Provider Unavailabl e Source Comments Patient records contain information from all sites at [facility]. For routine questions regarding patient records, call [phone] during business hours, M-F 8:00 AM - 5:00 PM Central Time. Record requests for emergency care only can be directed to [phone] at any time.[facility] Medications potassium citrate (UROCIT-K) 10 mEq [...] on file Legal Sex Female 10:32 AM TAX COMPLIANCE AGENT Gender Identity Not on file Sexual Orientation Not on file Plan of Treatment Health Maintenance Due Date Last Done Comments CT Colonography 1970 Cologuard 1970 Colonoscopy 1970 Colorectal Cancer Screening 1970 FIT 1970 HIV Screening 1970 Hepatitis C Screening 1970 Lipid (Cholesterol) Screening 1970 Mammogram 1970 Cervical/Vaginal Cancer Screening 11/14/2022 11/15/2019 Depression Screening (Annual PHQ-2) 02/17/2023 Fasting Glucose for Diabetes Screening 12/02/2025 12/02/2022, 11/30/2022, 11/29/2022 DTaP,Tdap,and Td Vaccines (3 - Td or Tdap) 10/26/2028 10/26/2018, 11/10/2013, 03/18/2005, Additional history exists Hepatitis B Vaccines Completed 07/22/2007, 02/20/2007, 01/14/2007 Zoster Vaccines Completed 01/28/2022, 11/27/2021 COVID-19 Vaccine Completed 11/11/2023, 03/2022, 11/14/2021, Additional history exists Influenza Vaccine Completed 11/11/2023, , 11/14/2021, Additional history exists IPV Vaccines Aged Out No longer eligi ble based on patient's age to complete this topic Pneumococcal vaccine (0-64 years) Aged Out No longer eligible based on patient's age to complete this topic Insurance [facility]
--- OUTSIDE RECORDS SUMMARY | 2024-01-06 08:51 | XMS_ITS | Referral Summary ---
Author Organization [facility] Address [address] [place] [address] Care Team Providers Care Machinist 2Nd Shift Name Role Phone Nicole Becker MD Primary Care Provider + Encounters Date Type Department Care Team Description 12/17/2023 Transcribe Orders GENERIC EXTERNAL DATA DEPARTMENT Provider, Generic External Data Malignant neoplasm of unspecified part of right bronchus or lung (H) (Primary Dx) 12/17/2023 Transcribe Orders GENERIC EXTERNAL DATA DEPARTMENT Provider, Generic External Data 12/03/[address] [facility] Health Information Management [address] [facility] [address] [facility] [address] [place] [address] Scan, Non-Provider from Last 3 Months Allergies [...] on file Legal Sex Female 4:30 AM TIMBER FALLER Gender Identity Not on file Sexual Orientation [...] on file Medical Devices Implanted Type Area Felt Hat Inspector And Packer Device Identifier Shelf Expiration Date Model / Serial / Lot Stent Ureteral Polaris Ultra [id number] - [id number] Implanted:Qty : 1 on 12/01/2022 by Jack Robert MD at [facility] Stent Left: Ureter [employer] [id number] 09/25/2025 [id number] Procedures Procedure Name Priority Date/Time Associated Diagnosis Comments BASIC METABOLIC PANEL Routine 12/02/2022 7:03 AM CDT from Last 3 Months or Most Recently Relevant to Health Maintenance Results * (ABNORMAL) Basic metabolic panel (12/02/2022 7:03 AM CDT) [facility] Sodium 142 135 - 145 mmol/L [...] [facility] [address], [address] [place] [address], [facility] [phone] from Last 3 Months or Most Recently Relevant to Health Maintenance Advance Directives For more information, please contact: [phone] * Full Code (Latest Code Status on File) Date Activated Date Inactivated Comments 11/30/2022 8:37 PM 12/02/2022 4:06 PM All basic and advanced life-sustaining interventions are performed as appropriate Question Answer Comments Code status determined by: Discussion with sundaye nt/ legal decision maker Care Teams Machinist 2Nd Shift Relationship Specialty Start Date End Date Nicole Becker MD [facility] [address] [address] PCP - General Family Medicine 11/29/22
--- OUTSIDE RECORDS SUMMARY | 2024-01-06 08:51 | XMS_ITS | Clinical Summary ---
Author Organization [employer] [facility] [facility] Address [place], [place] [address] Care Team Providers Care Pattern Chain Builder Name Role Phone [facility] Unavailable Unavailable Pcp, No Primary Care [...] Comments Blood Pressure 110/72 04/23/2017 12:07 PM ASSISTANT CORPORATE SECRETARY Pulse 75 04/23/2017 12:07 PM ASSISTANT CORPORATE SECRETARY Temperature - - Respiratory Rate - - Oxygen Saturation 96% 04/23/2017 12:07 PM ASSISTANT CORPORATE SECRETARY Inhaled Oxygen Concentration - - Weight 78.6 kg (173 lb 4.8 oz) 04/23/2017 12:07 PM ASSISTANT CORPORATE SECRETARY Height - - Body Mass Index - [...] 2020 Pap test for age 21-65 11/14/2022 , 11/15/2019, 07/06/2014, Additional history exists COVID-19 vaccine series (2023- season) 2023 11/18/2022, 11/14/2021, 05/29/2021, Additional history exists Influenza for age 50-64 10/19/2023 Pneumococcal series for age 6-64 Aged Out No longer eligible based on patient's age to complete this topic Procedures Procedure Name Priority Date/Time Associated Diagnosis Comments TUBE WINDER HAND THIN PREP PAP SCREEN IMAGED Routine 11/15/2019 2:15 PM CDT from Last 3 Months or Most Recently Relevant to Health Maintenance Results * TUBE WINDER HAND THIN PREP PAP SCREEN IMAGED (11/15/2019 2:15 PM CDT) Case Report Gynecologic Cytology Report Case: [id number] Authorizing Provider: Shobha Yen Collected: 11/15/2019 141Kellen Harris MD Ordering Location: [facility] Received: 11/17/2019 0822 First Screen: Asmita Doan Specimen: TUBE WINDER HAND ThinPrep Vial Screening, Cervical/Vaginal 11/24/2019 5:31 PM CDT [employer] [facility] INTERPRETATION/ RESULT NEGATIVE FOR INTRAEPITHELIAL LESION OR MALIGNANCY (NIL) (none) 11/24/2019 5:31 PM CDT [employer] [facility] IMEN ADEQUACY Satisfactory for evaluation No endocervical component seen 11/24/2019 5:31 PM CDT [facility] HPV REQUEST HPV and PAP 11/24/2019 5:31 PM CDT [employer] [facility] Last Pap Date 07/06/2014 11/24/2019 5:31 PM CDT [facility] Last Pap Result NIL 0 5:[address] [facility] Comment:-HPV Menstrual Status 11/24/2019 5:31 PM CDT [facility] Comment:IUD Additional Information 11/24/2019 5:31 PM CDT [facility] Comment: Interpreted at [facility] [employer] [facility] - [address], [place] [address] Automated Review Successful 11/24/2019 5:[address] [facility] Comment:Specimen processed s uccessfully by automated mmi teacher device, [employer] Imaging System, [employer] ANCILLARY TESTING TUBE WINDER HAND HPV Ordered, Please see separate report 11/24/2019 5:[address] [facility] Note The pap test is a [...] and malignant lesions. 11/24/2019 5:[address] [facility] Other (Cervical/Vagina l) 11/15/2019 2:15 PM CDT 11/17/2019 8:22 AM CDT Shobha Yen MD PATHOLOGY/ CYTOLOGY [facility] [address] [place] [address], [place] from Last 3 Months or Most Recently Relevant to Health Maintenance Care Teams Pattern Chain Builder Relationship Specialty Start Date End Date Pcp, No . PCP - General 04/23/17 [facility] 03/26/17
--- OUTSIDE RECORDS SUMMARY | 2024-01-06 08:51 | XMS_ITS | Referral Summary ---
Author Organization [facility] Address [address] [place] [address] Care Team Providers Care Parquetry Floor Layer Name Role Phone Unavailable Primary Care Provider Unavailabl e Source Comments Patient records contain information from all sites at [facility]. For routine questions regarding patient records, call [phone] during business hours, M-F 8:00 AM - 5:00 PM Central Time. 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
--- OUTSIDE RECORDS SUMMARY | 2024-01-06 08:51 | XMS_ITS | Encounter Summary ---
Author Organization [facility] Address [address] [place] [address] Care Team Providers Care Idea Worker Name Role Phone Nicole Becker MD Primary Care Provider + Encounter Details Date Type Department Care Team (Late st Contact Info) Description 12/03/2023 Medical Correspondence [facility] Health Information Management [address] [facility] [address] [place] [address] Scan, Non-Provider Social History Tobacco Use Types Packs/Day Years Used Date Smoking Tobacco: Never Assessed Adolescent Education Answer Date Record ed Getting School Help Needed Not on file 11/29 Comments No Sex and Gender Information Value Date Recorded Sex Assigned at Not on file Legal Sex Female 4:30 AM EYEGLASS CUTTER Gender Identity Not on file Sexual Orientation Not on file documented as of this encounter Plan of Treatment Not on file documented as of this encounter Visit Diagnoses Not on filedocumented in this encounter Care Teams Idea Worker Relationship Specialty Start Date End Date Nicole Becker MD [facility] [address] [place] [address] PCP - General Family Medicine 11/29/22 documented as of this encounter
== END 2024-01-06 08:49 | disposition home or self-care (01) ==
LOC: NFLDREF 08:49
PROVIDERS: PCP Family Medicine; Visit Provider Obstetrics & Gynecology
DX: Z01.419 Encounter for gynecological examination (general) (routine) without abnormal findings (principal); D64.9 Anemia, unspecified; Z13.6 Encounter for screening for cardiovascular disorders
CPT/HCPCS: 80061

== ENCOUNTER 2024-01-13 08:08 | Outpatient (CLI) | payer OTHER, SELFPAY ==
--- OUTSIDE RECORDS SUMMARY | 2024-01-15 06:00 | XMS_ITS | Clinical Summary ---
Author Organization [facility] Address [address] [place] [address] Care Team Providers Care Furnace Mason Name Role Phone Unavailable Primary Care Provider Unavailabl e Source Comments Patient records contain information from all sites at [facility]. For routine questions regarding patient records, call [phone] during business hours, M-F 8:00 AM - 5:00 PM Central Time. Record requests for emergency care only can be directed to [phone] at any time.[facility] Medications potassium citrate (UROCIT-K) 10 mEq [...] on file Legal Sex Female 10:32 AM TECHNOLOGY EDUCATION INSTRUCTOR Gender Identity Not on file Sexual [...] patient's age to complete this topic Insurance [facility]
--- OUTSIDE RECORDS SUMMARY | 2024-01-15 06:00 | XMS_ITS | Clinical Summary ---
Author Organization [employer] Address [address] 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 Stent Left: Ureter [employer] [id number] 09/25/2025 [id number] Procedures Procedure Name Priority Date/Time Associated Diagnosis Comments BASIC METABOLIC PANEL Routine 12/02/2022 7:03 AM CDT from Last 3 Months or Most Recently Relevant to Health Maintenance Results * (ABNORMAL) Basic metabolic panel (12/02/2022 7:03 AM CDT) [facility] Sodium 142 135 - 145 mmol/L 12/02/2022 7:40 AM [facility] Comment:Reference intervals for this test were updated on 11/12/2022 to more accurately reflect our healthy population. There may be differences in the flagging of prior results with similar values performed with this method. Interpretation of those prior results can be made in the context of the updated reference intervals. Potassium 3.9 3.4 - 5.3 mmol/L 12/02/2022 7:40 AM [facility] Chloride 111(H) 98 - 107 mmol/L 12/02/2022 7:40 AM [facility] Carbon Dioxide (CO2) 20(L) 22 - 29 mmol/L 12/02/2022 7:40 AM [facility] Anion Gap 11 7 - 15 mmol/L 12/02/2022 7:40 AM [facility] Urea Nitrogen 15.6 6.0 - 20.0 mg/dL 12/02/2022 7:40 AM [facility] Creatinine 1.18(H) 0.51 - 0.95 mg/dL 12/02/2022 7:40 AM [facility] GFR Estimate 55(L) >60 mL/min/1. 73m2 12/02/2022 7:40 AM [facility] Calcium 8.6 8.6 - 10.0 mg/dL 12/02/2022 7:40 AM [facility] Glucose 105(H) 70 - 99 mg/dL 12/02/2022 7:40 AM [facility] Blood STRUCTURE OF LEFT UPPER LIMB / Unknown Venipuncture / Unknown 12/02/2022 7:03 AM CDT 12/02/2022 7:10 AM CDT us Emmett Crawford MD LAB - BLOOD ORDERABLES Final R esult LABORATORY [facility] [address], [address] [place] [address], [facility] [phone] from Last 3 Months or Most Recently Relevant to Health Maintenance Advance Directives For more information, please contact: [phone] * Full Code (Latest Code Status on File) Date Activated Date Inactivated Comments 11/30/2022 8:37 PM 12/02/2022 4:06 PM All basic and advanced life-sustaining interventions are performed as appropriate Question Answer Comments Code status determined by: Discussion with sundaye nt/ legal decision maker Care Teams Calibration Engineer Relationship Specialty Start Date End Date Nicole Becker MD [facility] [address] [place] [address] PCP - General Family Medicine 11/29/22
--- OUTSIDE RECORDS SUMMARY | 2024-01-15 06:00 | XMS_ITS ---
Author Organization [facility] Address [address] [place] [address] Care Team Providers Care Sys Dir Name Role Phone Unavailable Unavailable Unavailable Surgery Details Not on file Complications Check Surgery Details section. Procedure Estimated Blood Loss Check Surgery Details section. Procedure Findings Check Surgery Details section. Procedure Specimens Taken Check Surgery Details section.
--- OUTSIDE RECORDS SUMMARY | 2024-01-15 06:00 | XMS_ITS | Clinical Summary ---
Author Organization [facility] Address [address] [place] [address] Care Team Providers Care Manager Front Office Name Role Phone David Choudhury MD Primary Care Provider [phone] Source Comments You are receiving this document as you are listed as the primary care provider,follow-up provider, or the patient has been referred to you for consultation.This is in compliance with the Medicare andKindred Healthcarecaid EHR Incentive Program,which states Providers who transition their patient to another setting of careor provider of care or refers their patient to another provider of care shouldprovide summary care record for each transition of care or referral. [facility] Allergies Active Allergy Reactions Criticality Noted Date [...] (03/09/2021): Added automatically from request for surgery [id number] Impaired glucose tolerance test 03/07/2004 Overview (10/09/2016): [...] Type Department Care Team Description 12/15/2023 E-Visit [facility] [address] [place] [address] Yenifer Martin Provider 12/15/2023 Notes/Orders [facility] [address] [place] [address] Nolan Hernandez, [facility] Family history of gene mutation (Primary Dx) [...] Sex Assigned at Female 02/21/2021 8:36 PM CHILD DEVELOPMENT ASSISTANT Gender Identity Female 02/21/2021 8:36 PM CHILD DEVELOPMENT ASSISTANT Sexual Orientation Not on file Last Filed [...] st Contact Info) Description 01/19/2024 1:30 PM CHILD DEVELOPMENT ASSISTANT Appointment [facility] [address] [facility] [place] [address] Nolan Hernandez, [facility] [address] [place] [address] Health Maintenance Due Date Last Done Comments [...] type HGB A1C Routine 03/31/2006 9:50 AM CHILD DEVELOPMENT ASSISTANT LIPID PANEL & DIRECT LDL (IF NEEDED) Routine 03/31/2006 9:50 AM CHILD DEVELOPMENT ASSISTANT ANATOMICAL PATH LIQUID BASED Routine 03/31/2006 7:31 AM CHILD DEVELOPMENT ASSISTANT from Last 3 Months or Most Recently [...] and oxygen saturations were monitored continuously. The [id number] was introduced through the anus and advanced [...] from the initial medication administration until the monomer recovery supervisor assists with initial maneuvers (biopsy / polypectomy [...] kind referral. Procedure Code(s): --- Professional --- 11783, Colonoscopy, flexible; diagnostic, including collection of specimen(s) by brushing or washing, when performed (separate procedure) G0500, Moderate sedation services provided by the same physician or other qualified health hospice care consultant performing a gastrointestinal endoscopic service that sedation supports, requiring the presence of an independent trained observer to assist in the monitoring of the patient's level of consciousness and physiological status; initial 15 minutes of intra-service time; patient age 5 years or older (additional time may be reported with 26255, as appropriate) 18518, Moderate sedation; each additional 15 minutes intraservice time Diagnosis Code(s): --- Professional --- K64.8, Other hemorrhoids D50.9, Iron deficiency anemia, unspecified K57.30, Diverticulosis of large intestine without perforation or abscess without bleeding CPT copyright 2021 [employer]. All rights reserved. The codes documented in this report are preliminary and upon radiology administrator review may be revised to meet current [...] and oxygen saturations were monitored continuously. The [id number] was introduced through the anus and advanced [...] from the initial medication administration until the monomer recovery supervisor assists with initial maneuvers (biopsy / polypectomy [...] kind referral. Procedure Code(s): --- Professional --- 30303, Colonoscopy, flexible; diagnostic, including collection of specimen(s) by brushing or washing, when performed (separate procedure) G0500, Moderate sedation services provided by the same physician or other qualified health hospice care consultant performing a gastrointestinal endoscopic service that sedation supports, requiring the presence of an independent trained observer to assist in the monitoring of the patient's level of consciousness and physiological status; initial 15 minutes of intra-service time; patient age 5 years or older (additional time may be reported with 54500, as appropriate) 84578, Moderate sedation; each additional 15 minutes intraservice time Diagnosis Code(s): --- Professional --- K64.8, Other hemorrhoids D50.9, Iron deficiency anemia, unspecified K57.30, Diverticulosis of large intestine without perforation or abscess without bleeding CPT copyright 2021 [employer]. All rights reserved. The codes documented in this report are preliminary and upon radiology administrator review may be revised to meet current compliance requirements. Saúl Kaur, 05/06/2023 2:01:33 PM Number of Addenda: 0 Note Initiated On: 05/06/2023 1:07 PM Endoscopy Report Kian BAUER ET GI PROCEDURE ORDE CHITO * Lipid Panel and Direct LDL(If Needed) (03/31/2006 9:50 AM CHILD DEVELOPMENT ASSISTANT) Hours Fasting 12.0 Hours HP CONVERSION Cholesterol/HDL Ratio Screen 3.1 No normal range HP CONVERSION Cholesterol 174 <200 mg/dL HP CONVERSION HDL Cholesterol 56 40 - 60 mg/dL HP CONVERSION Triglycerides 111 0 - 149 mg/dL HP CONVERSION LDL Calculated 96 0 - 130 mg/dL HP CONVERSION Comment: 03/31/2006 9:50 AM CHILD DEVELOPMENT ASSISTANT Theresa Hardy MD LAB_1 HP CONVERSION * Hgb A1c (03/31/2006 9:50 AM CHILD DEVELOPMENT ASSISTANT) HGB A1C 5.4 <6.0 % HP CONVERSION 03/31/2006 9:50 AM CHILD DEVELOPMENT ASSISTANT Theresa Hardy MD LAB_1 HP CONVERSION * Pap Smear (03/31/2006 7:31 AM CHILD DEVELOPMENT ASSISTANT) PAP Smear Liquid Based SEE TEXT No normal range HP CONVERSION Comment: Patient: FIFI JOSÉ CERVICAL CYTOLOGY REPORT Pathology # [id number] Date Obtained: Date Received: CYTOLOGIC IMPRESSION: Negative for intraepithelial lesion or malignancy. Verified 04/02/06 by: ENRIQUE (electronic signature) ADDITIONAL DATA LMP: CLINICAL HIST LIQUID BASED PAP CERVICAL SPECIMEN ADEQUACY: Satisfactory. ENDOCERVICAL CELLS: Present. 03/31/2006 7:31 AM CHILD DEVELOPMENT ASSISTANT Theresa Hardy MD LAB_1 HP CONVERSION from Last 3 Months or Most Recently Relevant to Health Maintenance Advance Directives * Full Code (Latest Code Status on File) Date Activated Date Inactivated Comments 03/16/2021 8:09 PM 03/21/2021 4:25 PM Full code in effect for 30 days Care Teams Manager Front Office Relationship Specialty Start Date End Date David Choudhury MD [address], [place] [id number] PCP - General Family Practice 03/16/21
--- OUTSIDE RECORDS SUMMARY | 2024-01-15 06:00 | XMS_ITS | Referral Summary ---
Author Organization [facility] Address [address] [place] [address] Care Team Providers Care Data Management Manager Name Role Phone Unavailable Primary Care Provider Unavailabl e Source Comments Patient records contain information from all sites at [facility]. For routine questions regarding patient records, call [phone] during business hours, M-F 8:00 AM - 5:00 PM Central Time. Record requests for emergency care only can be directed to [phone] at any time.[facility] Medications potassium citrate (UROCIT-K) 10 mEq (1,080 [...] on file Legal Sex Female 10:32 AM PRISON LIBRARIAN Gender Identity Not on file Sexual Orientation Not on file Plan of Treatment Not on file Insurance [employer]
--- OUTSIDE RECORDS SUMMARY | 2024-01-15 06:00 | XMS_ITS | Clinical Summary ---
Author Organization [facility] Address [place], [place] [address] Care Team Providers Care Marketing Research Coordinator Name Role Phone [facility] Unavailable Unavailable Pcp, No Primary [...] Comments Blood Pressure 110/72 04/23/2017 12:07 PM CATECHIST Pulse 75 04/23/2017 12:07 PM CATECHIST Temperature - - Respiratory Rate - - Oxygen Saturation 96% 04/23/2017 12:07 PM CATECHIST Inhaled Oxygen Concentration - - Weight 78.6 kg (173 lb 4.8 oz) 04/23/2017 12:07 PM CATECHIST Height - - Body Mass Index - [...] Procedure Name Priority Date/Time Associated Diagnosis Comments [employer] THIN PREP PAP SCREEN IMAGED Routine 11/15/2019 2:15 PM CDT from Last 3 Months or Most Recently Relevant to Health Maintenance Results * [employer] THIN PREP PAP SCREEN IMAGED (11/15/2019 2:15 PM CDT) Case Report Gynecologic Cytology Report Case: [id number] Authorizing Provider: Shobha Yen Collected: 11/15/2019 141Kellen Harris MD Ordering Location: [facility] Received: 11/17/2019 0822 First Screen: Asmita Doan Specimen: [employer] ThinPrep Vial Screening, Cervical/Vaginal 11/24/2019 5:31 PM CDT [facility] INTERPRETATION/ RESULT NEGATIVE FOR INTRAEPITHELIAL LESION OR MALIGNANCY (NIL) (none) 11/24/2019 5:31 PM CDT [facility] IMEN ADEQUACY Satisfactory for evaluation No endocervical component seen 11/24/2019 5:31 PM CDT [facility] HPV REQUEST HPV and PAP 11/24/2019 5:31 PM CDT [facility] Last Pap Date 07/06/2014 11/24/2019 5:31 PM CDT [facility] Last Pap Result NIL 0 5:31 PM CDT [facility] Comment:-HPV Menstrual Status 11/24/2019 5:31 PM CDT [facility] Comment:IUD Additional Information 11/24/2019 5:31 PM CDT [facility] Comment: Interpreted at [facility] [employer] [facility] - [address], [place] [address] Automated Review Successful 11/24/2019 5:31 PM CDT [facility] Comment:Specimen processed s uccessfully by automated rooms director device, [employer] System, [employer] ANCILLARY TESTING [employer] HPV Ordered, Please see separate report 11/24/2019 5:31 PM CDT [facility] Note The pap test is a [...] and malignant lesions. 11/24/2019 5:31 PM CDT [facility] Other (Cervical/Vagina l) 11/15/2019 2:15 PM CDT 11/17/2019 8:22 AM CDT Shobha Yen MD PATHOLOGY/ CYTOLOGY [facility] [address] [place] [address], [place] from Last 3 Months or Most Recently Relevant to Health Maintenance Care Teams Marketing Research Coordinator Relationship Specialty Start Date End Date Pcp, No . PCP - General 04/23/17 [facility] 03/26/17
--- OUTSIDE RECORDS SUMMARY | 2024-01-15 06:00 | XMS_ITS | Referral Summary ---
Author Organization [place] Address [address] [place] [address] Care Team Providers Care Atomic Fuel Assembler Name Role Phone Nicole Becker MD Primary Care Provider + Encounters Date Type Department Care Team Description 12/17/2023 Transcribe Orders GENERIC EXTERNAL DATA DEPARTMENT Provider, Generic External Data Malignant neoplasm of unspecified part of right bronchus or lung (H) (Primary Dx) 12/17/2023 Transcribe Orders GENERIC EXTERNAL DATA DEPARTMENT Provider, Generic External Data 12/03/[address] 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 Gender Identity Not on file Sexual Orientation [...] on file Medical Devices Implanted Type Area Machine Tool Builder Device Identifier Shelf Expiration Date Model / Serial / Lot Stent Ureteral Polaris Ultra [id number] - [id number] Implanted:Qty : 1 on 12/01/2022 by Jack Robert MD at [facility] Stent Left: Ureter [employer] [id number] 09/25/2025 [id number] Procedures Procedure Name Priority Date/Time Associated Diagnosis Comments BASIC METABOLIC PANEL Routine 12/02/2022 7:03 AM CDT from Last 3 Months or Most Recently Relevant to Health Maintenance Results * (ABNORMAL) Basic metabolic panel (12/02/2022 7:03 AM CDT) [facility] Sodium 142 135 - 145 mmol/L [...] - BLOOD ORDERABLES Final R esult LABORATORY [facility] Acute Care Lab [address], [address] [place] [address], [facility] [phone] from Last 3 Months or Most Recently Relevant to Health Maintenance Advance Directives For more information, please contact: [phone] * Full Code (Latest Code Status on File) Date Activated Date Inactivated Comments 11/30/2022 8:37 PM 12/02/2022 4:06 PM All basic and advanced life-sustaining interventions are performed as appropriate Question Answer Comments Code status determined by: Discussion with sundaye nt/ legal decision maker Care Teams Atomic Fuel Assembler Relationship Specialty Start Date End Date Nicole Becker MD [facility] & [address] [address] PCP - General Family Medicine 11/29/22
--- OUTSIDE RECORDS SUMMARY | 2024-01-15 06:00 | XMS_ITS | Encounter Summary ---
Author Organization [place] Address [address] [facility] [place] [address] Care Team Providers Care Consumer Advocate Name Role Phone Nicole Becker MD Primary Care Provider + Encounter Details Date Type Department Care Team (Late st Contact Info) Description 12/03/2023 Medical Correspondence [facility] Health Information Management [address] [facility] [address] [place] [address] Scan, Non-Provider Social History Tobacco Use Types Packs/Day Years Used Date Smoking Tobacco: Never Assessed Adolescent Education Answer Date Record ed Getting School Help Needed Not on file 11/29 Comments No Sex and Gender Information Value Date Recorded Sex Assigned at Not on file Legal Sex Female 4:30 AM PAPERHANGER AND PAINTER Gender Identity Not on file Sexual Orientation Not on file documented as of this encounter Plan of Treatment Not on file documented as of this encounter Visit Diagnoses Not on filedocumented in this encounter Care Teams Consumer Advocate Relationship Specialty Start Date End Date Nicole Becker MD [facility] [address] [place] [address] PCP - General Family Medicine 11/29/22 documented as of this encounter
--- OUTSIDE RECORDS SUMMARY | 2024-01-15 06:00 | XMS_ITS | Encounter Summary ---
Author Organization [place] Address [address] [place] [address] Care Team Providers Care Manager Local Name Role Phone Nicole Becker MD Primary Care Provider + Reason for Referral * Consultation (Routine) - Pending Review Specialty Diagnoses / Procedures Referred By Contzahra t Referred To Contact Medical Oncology Diagnoses Malignant neoplasm of unspecified part of right bronchus or lung (H) Nicole Becker MD [facility] & [address] [address] Phone: tel: fax: Referral ID Status Reason Start Date Expiration Date V isits Requested Visits Authorized [id number] Pending Review 12/17/2023 12/16/2024 1 1 Question Answer My Clinical Question Is: malignant neoplasm of unspecified part of right bronchus or lung If you have additional clinical questions which require a provider discussion, please call [phone]. Ask for the Chemo only medicine physician. Reason for Referral: Risk Management/Genetic Counseling Patient Scheduling Instructions: [facility] will call you to coordinate your care as prescribed by the provider. If you don t hear from a territory account representative within 2 business days, please call Additional Information: referral recd by email from Ref Spec team./ referral recd by fax from Dr Nicole Becker, [facility]/ [facility] not verifying insurance Comments referral recd by email from Ref Spec team./ referral recd by fax from Dr Nicole Becker, [facility]/ [facility] not verifying insurance Dr Nicole Becker, [facility] T [phone] F not listed Please be aware that coverage of these services is subject to the terms and limitations of your health insurance plan. Call member services at your health plan with any benefit or coverage questions. [facility] will call you to coordinate your care as prescribed by the provider. 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 PILOT Gender Identity Not on file Sexual Orientation Not on file documented as of this encounter Plan of Treatment Scheduled Referrals Name Type Priority Associated Diagnoses Orde r Schedule Adult Oncology/Hematology Systems Requirements Planner Referral Referral Routine Malignant neoplasm of unspecified part of right bronchus or lung (H) Ordered: 12/17/2023 documented as of this encounter Visit Diagnoses Diagnosis Malignant neoplasm of unspecified part of right bronchus or lung (H)- Primary documented in this encounter Care Teams Manager Local Relationship Specialty Start Date End Date Nicole Becker MD [facility] [place] [place] [address] PCP - General Family Medicine 11/29/22 documented as of this encounter
--- OUTSIDE RECORDS SUMMARY | 2024-01-15 06:00 | XMS_ITS | Encounter Summary ---
Author Organization [place] Address [address] 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
--- OUTSIDE RECORDS SUMMARY | 2024-01-15 06:00 | XMS_ITS | Encounter Summary ---
Author Organization [facility] Address [address] [place] [address] Care Team Providers Care Sole Layer Name Role Phone David Choudhury MD Primary Care Provider [phone] Encounter Details Date Type Department Care Team (Late st Contact Info) Description 12/15/2023 E-Visit [facility] Oncology Genetic Services [address] [place] [address] [place] [address] Social History Tobacco Use Types Packs/Day Years Used Date Smoking Tobacco: Never Smokeless Tobacco: Never Alcohol Use Standard Drinks/Week Comments Not Currently 0 (1 standard drink = 0.6 oz pur e alcohol) rare usage Sex and Gender Information Value Date Recorded Sex Assigned at Female 02/21/2021 8:36 PM MANAGER SHAREPOINT Gender Identity Female 02/21/2021 8:36 PM MANAGER SHAREPOINT Sexual Orientation Not on file documented as of this encounter Plan of Treatment Upcoming Encounters Date Type Department Care Team (Late Contact Info) Description 01/19/2024 1:30 PM MANAGER SHAREPOINT Appointment [facility] Oncology Genetic Services [address] [place] [address] Nolan Hernandez, [facility] [address] [place] [address] documented as of this encounter Visit Diagnoses Not on filedocumented in this encounter Care Teams Sole Layer Relationship Specialty Start Date End Date David Choudhury MD [address] [place] [address] PCP - General Family Practice 03/16/21 documented as of this encounter
--- OUTSIDE RECORDS SUMMARY | 2024-01-15 06:00 | XMS_ITS | Encounter Summary ---
Author Organization [facility] Address [address] [place] [address] Care Team Providers Care Windows Security Analyst Name Role Phone David Choudhury MD Primary Care Provider [phone] Reason for Referral * Consult/Transfer Care (Routine) - New Request Specialty Diagnoses / Procedures Referred By Maria Luz polanco Referred To Contact Diagnoses Family history of gene mutation Nolan Hernandez, [facility] [address] [place] [address] Referral ID Status Reason Start Date Expiration Date V isits Requested Visits Authorized [id number] New Request 12/15/2023 03/15/2025 1 1 Scheduling Instructions Your clinician has recommended an appointment with [facility]. You may call [phone] to schedule your appointment. We suggest you call your health insurance company about your coverage and benefits for this appointment. Question Answer Appointment Urgency? Non-Urgent Reason for visit? Family history of TP53 positive (1st cousin) Electronically signed by Nolan Hernandez [facility] at 12/15/2023 11:55 AM CDT Encounter Details Date Type Department Care Team (Late st Contact Info) Description 12/15/2023 Notes/Orders [facility] Oncology Genetic Services [address] [place] [address] Nolan Hernandez [address] [address] Family history of gene mutation (Primary Dx) Social History Tobacco Use Types Packs/Day Years Used Date Smoking Tobacco: Never Smokeless Tobacco: Never Alcohol Use Standard Drinks/Week Comments Not Currently 0 (1 standard drink = 0.6 oz pur e alcohol) rare usage Sex and Gender Information Value Date Recorded Sex Assigned at Female 02/21/2021 8:36 PM AGENCY CASHIER Gender Identity Female 02/21/2021 8:36 PM AGENCY CASHIER Sexual Orientation Not on file documented as of this encounter Plan of Treatment Upcoming Encounters Date Type Department Care Team (Late st Contact Info) Description 01/19/2024 1:30 PM AGENCY CASHIER Appointment [facility] Oncology Genetic Services [address] [place] [address] Nolan Hernandez [address] [address] Scheduled Referrals Name Type Priority Associated Diagnoses Orde r Schedule Genetic Counseling (Oncology) Referral Routine Family history of gene mutation Ordered: 12/15/2023 documented as of this encounter Visit Diagnoses Diagnosis Family history of gene mutation- Primary documented in this encounter Care Teams Windows Security Analyst Relationship Specialty Start Date End Date David Choudhury MD [address] [place] [address] PCP - General Family Practice 03/16/21 documented as of this encounter
== END 2024-01-13 08:09 | disposition home or self-care (01) ==
LOC: NFLDREF 01-15 05:59
PROVIDERS: PCP Family Medicine; Referring Provider Family Medicine; Visit Provider Internal Medicine Nephrology
DX: D50.9 Iron deficiency anemia, unspecified (principal); N20.0 Calculus of kidney; D50.0 Iron deficiency anemia secondary to blood loss (chronic)
CPT/HCPCS: 80069; 82043; 82306; 82570; 83970; 84550; 87086

== ENCOUNTER 2024-01-19 07:39 | Outpatient (CLI) | payer OTHER, SELFPAY ==
--- OUTSIDE RECORDS SUMMARY | 2024-01-24 10:16 | XMS_ITS | Encounter Summary ---
Author Organization [place] Address [address] [facility] [place] [address] Care Team Providers Care Manager Hotel Name Role Phone Nicole Becker MD Primary Care Provider + Encounter Details Date Type Department Care Team (Late st Contact Info) Description 12/03/2023 Medical Correspondence [facility] Health Information Management [address] [facility] [address] [place] [address] Scan, Non-Provider Social History Tobacco Use Types Packs/Day Years Used Date Smoking Tobacco: Never Assessed Adolescent Education Answer Date Record ed Getting School Help Needed Not on file 11/29 Comments No Sex and Gender Information Value Date Recorded Sex Assigned at Not on file Legal Sex Female 4:30 AM COUNTER INSTALLER Gender Identity Not on file Sexual Orientation Not on file documented as of this encounter Plan of Treatment Not on file documented as of this encounter Visit Diagnoses Not on filedocumented in this encounter Care Teams Manager Hotel Relationship Specialty Start Date End Date Nicole Becker MD [facility] [address] [place] [address] PCP - General Family Medicine 11/29/22 documented as of this encounter
--- OUTSIDE RECORDS SUMMARY | 2024-01-24 10:16 | XMS_ITS | Encounter Summary ---
Author Organization [place] Address [address] [place] [address] Care Team Providers Care Production Line Operator Name Role Phone Nicole Becker MD Primary Care Provider + Reason for Referral * Consultation (Routine) - Pending Review Specialty Diagnoses / Procedures Referred By Contzahra t Referred To Contact Medical Oncology Diagnoses Malignant neoplasm of unspecified part of right bronchus or lung (H) Nicole Becker MD [facility] & [address] [address] Phone: tel: fax: Referral ID Status Reason Start Date Expiration Date V isits Requested Visits Authorized [id number] Pending Review 12/17/2023 12/16/2024 1 1 Question Answer My Clinical Question Is: malignant neoplasm of unspecified part of right bronchus or lung If you have additional clinical questions which require a provider discussion, please call [phone]. Ask for the Chemo only medicine physician. Reason for Referral: Risk Management/Genetic Counseling Patient Scheduling Instructions: [facility] will call you to coordinate your care as prescribed by the provider. If you don t hear from a publications sales representative within 2 business days, please call Additional Information: referral recd by email from Ref Spec team./ referral recd by fax from Dr Nicole Becker, [facility]/ [facility] not verifying insurance Comments referral recd by email from Ref Spec team./ referral recd by fax from Dr Nicole Becker, [facility]/ [facility] not verifying insurance Dr Nicole Becker, [facility] T [phone] F not listed Please be aware that coverage of these services is subject to the terms and limitations of your health insurance plan. Call member services at your health plan with any benefit or coverage questions. [facility] will call you to coordinate your care as prescribed by the provider. If you don t hear from a publications sales representative within 2 business days, please call [...] on file Legal Sex Female 4:30 AM CEMENT BASED MATERIALS PUMP TENDER Gender Identity Not on file Sexual Orientation Not on file documented as of this encounter Plan of Treatment Scheduled Referrals Name Type Priority Associated Diagnoses Orde r Schedule Adult Oncology/Hematology Janitor Helper Referral Referral Routine Malignant neoplasm of unspecified part of right bronchus or lung (H) Ordered: 12/17/2023 documented as of this encounter Visit Diagnoses Diagnosis Malignant neoplasm of unspecified part of right bronchus or lung (H)- Primary documented in this encounter Care Teams Production Line Operator Relationship Specialty Start Date End Date Nicole Becker MD [facility] [place] [facility] [place] [address] PCP - General Family Medicine 11/29/22 documented as of this encounter
--- OUTSIDE RECORDS SUMMARY | 2024-01-24 10:16 | XMS_ITS | Referral Summary ---
Author Organization [facility] Address [address] [place] [address] Care Team Providers Care Amusement Or Recreation Card Checker Name Role Phone Unavailable Primary Care Provider Unavailabl e Source Comments Patient records contain information from all sites at [facility]. For routine questions regarding patient records, call [phone] during business hours, M-F 8:00 AM - 5:00 PM Central Time. Record requests for emergency care only can be directed to [phone] at any time.[facility] Medications potassium citrate (UROCIT-K) 10 [...] on file Legal Sex Female 10:32 AM HAND TENNIS BALL COVERER Gender Identity Not on file Sexual Orientation Not on file Plan of Treatment Not on file Insurance [employer]
--- OUTSIDE RECORDS SUMMARY | 2024-01-24 10:16 | XMS_ITS | Encounter Summary ---
Author Organization [place] Address [address] [address] Care Team Providers Care Configuration Management Advisor Name Role Phone Nicole Becker MD Primary [...] on file Legal Sex Female 4:30 AM MANAGER HEART Gender Identity Not on file Sexual Orientation Not on file documented as of this encounter Plan of Treatment Not on file documented as of this encounter Visit Diagnoses Not on filedocumented in this encounter Care Teams Configuration Management Advisor Relationship Specialty Start Date End Date Nicole Becker MD [facility] [address] [place] [address] PCP - General Family Medicine 11/29/22 documented as of this encounter
--- OUTSIDE RECORDS SUMMARY | 2024-01-24 10:16 | XMS_ITS ---
Author Organization [facility] Address [address] [place] [address] Care Team Providers Care Revenue Cycle Consultant Name Role Phone Unavailable Unavailable Unavailable Surgery Details Not on file Complications Check Surgery Details section. Procedure Estimated Blood Loss Check Surgery Details section. Procedure Findings Check Surgery Details section. Procedure Specimens Taken Check Surgery Details section.
--- OUTSIDE RECORDS SUMMARY | 2024-01-24 10:16 | XMS_ITS | Clinical Summary ---
Author Organization [facility] Address [address] [place] [address] Care Team Providers Care Set Painter Name Role Phone Unavailable Primary Care Provider Unavailabl e Source Comments Patient records contain information from all sites at [facility]. For routine questions regarding patient records, call [phone] during business hours, M-F 8:00 AM - 5:00 PM Central Time. Record requests for emergency care only can be directed to [phone] at any time.[facility] Medications potassium citrate (UROCIT-K) 10 [...] on file Legal Sex Female 10:32 AM COMBINATION WELDER APPRENTICE Gender Identity Not on file Sexual Orientation Not on file Plan of Treatment Health Maintenance Due Date Last Done Comments HIV Screening 1970 Hepatitis C Screening 1970 [...] patient's age to complete this topic Insurance [facility]
--- OUTSIDE RECORDS SUMMARY | 2024-01-24 10:16 | XMS_ITS | Referral Summary ---
Author Organization [place] Address [address] [place] [address] Care Team Providers Care Grocery Packer Name Role Phone Nicole Becker MD Primary Care Provider + Encounters Date Type Department Care Team Description 12/17/2023 Transcribe Orders GENERIC EXTERNAL DATA DEPARTMENT Provider, Generic External Data Malignant neoplasm of unspecified part of right bronchus or lung (H) (Primary Dx) 12/17/2023 Transcribe Orders GENERIC EXTERNAL DATA DEPARTMENT Provider, Generic External Data 12/03/2023 Medical Correspondence [facility] Health Information Management [address] [facility] [address] [place] [address] Scan, Non-Provider from Last 3 Months Allergies [...] on file Legal Sex Female 4:30 AM PERSONNEL TECHNICIAN Gender Identity Not on file Sexual Orientation [...] on file Medical Devices Implanted Type Area Automobile Tire Builder Device Identifier Shelf Expiration Date Model / Serial / Lot Stent Ureteral Polaris Ultra [id number] - [id number] Implanted:Qty : 1 on 12/01/2022 by Jack Robert MD at [facility] Stent Left: Ureter [employer] [id number] 09/25/2025 [id number] Procedures Procedure Name Priority Date/Time Associated Diagnosis Comments BASIC METABOLIC PANEL Routine 12/02/2022 7:03 AM CDT from Last 3 Months or Most Recently Relevant to Health Maintenance Results * (ABNORMAL) Basic metabolic panel (12/02/2022 7:03 AM CDT) [facility] Sodium 142 135 - 145 mmol/L [...] - BLOOD ORDERABLES Final R esult LABORATORY [facility] Acute Care Lab [address], [address] [place] [address], [facility] [phone] from Last 3 Months or Most Recently Relevant to Health Maintenance Advance Directives For more information, please contact: [phone] * Full Code (Latest Code Status on File) Date Activated Date Inactivated Comments 11/30/2022 8:37 PM 12/02/2022 4:06 PM All basic and advanced life-sustaining interventions are performed as appropriate Question Answer Comments Code status determined by: Discussion with sundaye nt/ legal decision maker Care Teams Grocery Packer Relationship Specialty Start Date End Date Nicole Becker MD [facility] & [address] [address] PCP - General Family Medicine 11/29/22
--- OUTSIDE RECORDS SUMMARY | 2024-01-24 10:16 | XMS_ITS | Clinical Summary ---
Author Organization [facility] Address [address] [place] [address] Care Team Providers Care 911 Emergency Services Dispatcher Name Role Phone Nicole Becker MD Primary [...] Provider, Generic External Data 12/03/2023 Medical Correspondence [facility] Information Management [address] [place] [id number] Scan, Non-Provider from Last 3 Months Social History Tobacco Use Types Packs/Day Years Used Date Smoking Tobacco: Never Assessed Adolescent Education Answer Date Record ed Getting School Help Needed Not on file 11/29 Comments No Sex and Gender Information Value Date Recorded Sex Assigned at Not on file Legal Sex Female 4:30 AM GAS STATION CLERK Gender Identity Not on file Sexual Orientation [...] this topic Medical Devices Implanted Type Area Staff Nuclear Medicine Technologist Device Identifier Shelf Expiration Date Model / Serial / Lot Stent Ureteral Polaris Ultra [id number] - [id number] Implanted:Qty : 1 on 12/01/2022 by Jack Robert MD at [facility] Stent Left: Ureter [employer] [id number] 09/25/2025 [id number] Procedures Procedure Name Priority Date/Time Associated Diagnosis Comments BASIC METABOLIC PANEL Routine 12/02/2022 7:03 AM CDT from Last 3 Months or Most Recently Relevant to Health Maintenance Results * (ABNORMAL) Basic metabolic panel (12/02/2022 7:03 AM CDT) [facility] Sodium 142 135 - 145 mmol/L 12/02/2022 7:40 AM [facility] Comment:Reference intervals for this test were updated on 11/12/2022 to more accurately reflect our healthy population. There may be differences in the flagging of prior results with similar values performed with this method. Interpretation of those prior results can be made in the context of the updated reference intervals. Potassium 3.9 3.4 - 5.3 mmol/L 12/02/2022 7:40 AM [facility] Chloride 111(H) 98 - 107 mmol/L 12/02/2022 7:40 AM [facility] Carbon Dioxide (CO2) 20(L) 22 - 29 mmol/L 12/02/2022 7:40 AM [facility] Anion Gap 11 7 - 15 mmol/L 12/02/2022 7:40 AM [facility] Urea Nitrogen 15.6 6.0 - 20.0 mg/dL 12/02/2022 7:40 AM [facility] Creatinine 1.18(H) 0.51 - 0.95 mg/dL 12/02/2022 7:40 AM [facility] GFR Estimate 55(L) >60 mL/min/1. 73m2 12/02/2022 7:40 AM [facility] Calcium 8.6 8.6 - 10.0 mg/dL 12/02/2022 7:40 AM [facility] Glucose 105(H) 70 - 99 mg/dL 12/02/2022 7:40 AM [facility] Blood STRUCTURE OF LEFT UPPER LIMB / Unknown Venipuncture / Unknown 12/02/2022 7:03 AM CDT 12/02/2022 7:10 AM CDT us Emmett rCawford MD LAB - BLOOD ORDERABLES Final R esult LABORATORY [facility] [address] floor, [address] [place] [address], [facility] [phone] from Last 3 Months or Most Recently Relevant to Health Maintenance Advance Directives For more information, please contact: [phone] * Full Code (Latest Code Status on File) Date Activated Date Inactivated Comments 11/30/2022 8:37 PM 12/02/2022 4:06 PM All basic and advanced life-sustaining interventions are performed as appropriate Question Answer Comments Code status determined by: Discussion with sundaye nt/ legal decision maker Care Teams 911 Emergency Services Dispatcher Relationship Specialty Start Date End Date Nicole Becker MD [facility] [address] [place] [address] PCP - General Family Medicine 11/29/22
--- OUTSIDE RECORDS SUMMARY | 2024-01-24 10:17 | XMS_ITS | Encounter Summary ---
Author Organization [facility] Address [address] [place] [address] Care Team Providers Care Damper Fitter Name Role Phone David Choudhury MD Primary Care Provider [phone] Encounter Details Date Type Department Care Team (Late st Contact Info) Description 12/15/2023 E-Visit [facility] On[facility] Genetic Services [address] [place] [id number] Mario, [place] [address] Social History Tobacco Use Types Packs/Day Years Used Date Smoking Tobacco: Never Smokeless Tobacco: Never Alcohol Use Standard Drinks/Week Comments Not Currently 0 (1 standard drink = 0.6 oz pur e alcohol) rare usage Sex and Gender Information Value Date Recorded Sex Assigned at Female 02/21/2021 8:36 PM CURRICULUM COACH Gender Identity Female 02/21/2021 8:36 PM CURRICULUM COACH Sexual Orientation Not on file documented as of this encounter Plan of Treatment Not on file documented as of this encounter Visit Diagnoses Not on filedocumented in this encounter Care Teams Damper Fitter Relationship Specialty Start Date End Date David Choudhury MD [address] [place] [address] PCP - General Family Practice 03/16/21 documented as of this encounter
--- OUTSIDE RECORDS SUMMARY | 2024-01-24 10:17 | XMS_ITS | Clinical Summary ---
Author Organization [facility] Address [address] [place] [address] Care Team Providers Care Settlement Worker Name Role Phone David Choudhury MD Primary Care Provider [phone] Source Comments You are receiving this document as you are listed as the primary care provider,follow-up provider, or the patient has been referred to you for consultation.This is in compliance with the Medicare and[facility] EHR Incentive Program,which states Providers who transition their patient to another setting of careor provider of care or refers their patient to another provider of care shouldprovide summary care record for each transition of care or referral. [facility] Allergies Active Allergy Reactions Criticality Noted Date [...] (03/09/2021): Added automatically from request for surgery [id number] Impaired glucose tolerance test 03/07/2004 Overview (10/09/2016): [...] Encounters Date Type Department Care Team Description 01/19/2024 5:20 PM POULTRY DRESSING WORKER Lab Visit [facility] [address] [place] [address] Malignant neoplasm of lower lobe of right lung (HRC) 01/19/2024 1:26 PM POULTRY DRESSING WORKER - 01/19/2024 11:59 PM POULTRY DRESSING WORKER Hospital Encounter [facility] On[facility] Genetic Services [address] [place] [address] Nolan Hernandez CGC Malignant neoplasm of lower lobe of right lung (HRC) (Primary Dx); Encounter for nonprocreative genetic counseling Discharge Disposition: Home 12/15/2023 E-Visit [facility] [address] [place] [address] Mychart, Generic Provider 12/15/2023 Notes/Orders [facility] Genetic [facility] [address] [place] [address] Nolan Hernandez CGC Family history of gene mutation (Primary Dx) [...] Sex Assigned at Female 02/21/2021 8:36 PM POULTRY DRESSING WORKER Gender Identity Female 02/21/2021 8:36 PM POULTRY DRESSING WORKER Sexual Orientation Not on file Last Filed [...] history exists Cholesterol 2015 03/31/2006, 02/19, 01/05/2003 Influenza (#1) 2023 11/18/2022, 10/19, 11/15/2020, Additional history exists Diabetes Screening- (based on age and BMI) 11/29/2025 11/29/2022, 03/31/2006, 03/07/2004 DTaP/Tdap/Td (3 - Tdap) 10/26/2028 10/27/19, 11/10/2013, 03/18/2005, Additional history exists Colonoscopy 05/05/2033 05/06/2023 HepA Aged Out 10/03/2011, 03/27/2011 No lo nger eligible based on patient's age to complete this topic Zoster/Shingles Completed 01/28/2022, 11/27/2021 COVID-19 Vaccine Completed 11/11/2023, 03/2022, 11/14/2021, Additional history exists Hib Aged Out No longer eligi ble [...] type HGB A1C Routine 03/31/2006 9:50 AM POULTRY DRESSING WORKER LIPID PANEL & DIRECT LDL (IF NEEDED) Routine 03/31/2006 9:50 AM POULTRY DRESSING WORKER ANATOMICAL PATH LIQUID BASED Routine 03/31/2006 7:31 AM POULTRY DRESSING WORKER from Last 3 Months or Most Recently [...] and oxygen saturations were monitored continuously. The [id number] was introduced through the anus and advanced [...] from the initial medication administration until the director of speech pathology assists with initial maneuvers (biopsy / polypectomy [...] kind referral. Procedure Code(s): --- Professional --- 13172, Colonoscopy, flexible; diagnostic, including collection of specimen(s) by brushing or washing, when performed (separate procedure) G0500, Moderate sedation services provided by the same physician or other qualified health clinical manager home care performing a gastrointestinal endoscopic service that sedation supports, requiring the presence of an independent trained observer to assist in the monitoring of the patient's level of consciousness and physiological status; initial 15 minutes of intra-service time; patient age 5 years or older (additional time may be reported with 68703, as appropriate) [address], Moderate sedation; each additional 15 minutes intraservice time Diagnosis Code(s): --- Professional --- K64.8, Other hemorrhoids D50.9, Iron deficiency anemia, unspecified K57.30, Diverticulosis of large intestine without perforation or abscess without bleeding CPT copyright 2021 [employer]. All rights reserved. The codes documented in this report are preliminary and upon mosaic technician review may be revised to meet current [...] and oxygen saturations were monitored continuously. The [id number] was introduced through the anus and advanced [...] from the initial medication administration until the director of speech pathology assists with initial maneuvers (biopsy / polypectomy [...] kind referral. Procedure Code(s): --- Professional --- 16805, Colonoscopy, flexible; diagnostic, including collection of specimen(s) by brushing or washing, when performed (separate procedure) G0500, Moderate sedation services provided by the same physician or other qualified health clinical manager home care performing a gastrointestinal endoscopic service that sedation supports, requiring the presence of an independent trained observer to assist in the monitoring of the patient's level of consciousness and physiological status; initial 15 minutes of intra-service time; patient age 5 years or older (additional time may be reported with 29981, as appropriate) 199[address], Moderate sedation; each additional 15 minutes intraservice time Diagnosis Code(s): --- Professional --- K64.8, Other hemorrhoids D50.9, Iron deficiency anemia, unspecified K57.30, Diverticulosis of large intestine without perforation or abscess without bleeding CPT copyright 2021 [employer]. All rights reserved. The codes documented in this report are preliminary and upon mosaic technician review may be revised to meet current compliance requirements. Saúl Kaur, 05/06/2023 2:01:33 PM Number of Addenda: 0 Note Initiated On: 05/06/2023 1:07 PM Endoscopy Report Kian BAUER ET GI PROCEDURE ORDE CHITO * Lipid Panel and Direct LDL(If Needed) (03/31/2006 9:50 AM POULTRY DRESSING WORKER) Hours Fasting 12.0 Hours HP CONVERSION Cholesterol/HDL Ratio Screen 3.1 No normal range HP CONVERSION Cholesterol 174 <200 mg/dL HP CONVERSION HDL Cholesterol 56 40 - 60 mg/dL HP CONVERSION Triglycerides 111 0 - 149 mg/dL HP CONVERSION LDL Calculated 96 0 - 130 mg/dL HP CONVERSION Comment: 03/31/2006 9:50 AM POULTRY DRESSING WORKER Theresa Hardy MD LAB_1 Performing Organization Address City/[facility]/ZIP Co de Phone Number HP CONVERSION * Hgb A1c (03/31/2006 9:50 AM POULTRY DRESSING WORKER) HGB A1C 5.4 <6.0 % HP CONVERSION 03/31/2006 9:50 AM POULTRY DRESSING WORKER Theresa Hardy MD LAB_1 HP CONVERSION * Pap Smear (03/31/2006 7:31 AM POULTRY DRESSING WORKER) PAP Smear Liquid Based SEE TEXT No normal range HP CONVERSION Comment: Patient: FIFI JOSÉ CERVICAL CYTOLOGY REPORT Pathology # [id number] Date Obtained: Date Received: CYTOLOGIC IMPRESSION: Negative for intraepithelial lesion or malignancy. Verified 04/02/06 by: MB (electronic signature) ADDITIONAL DATA LMP: CLINICAL HIST LIQUID BASED PAP CERVICAL SPECIMEN ADEQUACY: Satisfactory. ENDOCERVICAL CELLS: Present. 03/31/2006 7:31 AM POULTRY DRESSING WORKER Theresa Hardy MD LAB_1 HP CONVERSION from Last 3 Months or Most Recently Relevant to Health Maintenance Advance Directives * Full Code (Latest Code Status on File) Date Activated Date Inactivated Comments 03/16/2021 8:09 PM 03/21/2021 4:25 PM Full code in effect for 30 days Care Teams Settlement Worker Relationship Specialty Start Date End Date David Choudhury MD [address] [place], [place] [id number] PCP - General Family Practice 03/16/21
--- OUTSIDE RECORDS SUMMARY | 2024-01-24 10:17 | XMS_ITS | Encounter Summary ---
Author Organization [facility] Address [address] [place] [address] Care Team Providers Care Safety Manager Name Role Phone David Choudhury MD Primary Care Provider [phone] Reason for Referral * Consult/Transfer Care (Routine) - New Request Specialty Diagnoses / Procedures Referred By Maria Luz polanco Referred To Contact Diagnoses Family history of gene mutation Nolan Hernandez, [place] [facility] [address] [place] [address] Referral ID Status Reason Start Date Expiration Date V isits Requested Visits Authorized [id number] New Request 12/15/2023 03/15/2025 1 1 Scheduling Instructions Your clinician has recommended an appointment with [facility]. You may call [phone] to schedule your appointment. We suggest you call your health insurance company about your coverage and benefits for this appointment. Question Answer Appointment Urgency? Non-Urgent Reason for visit? Family history of TP53 positive (1st cousin) Electronically signed by Nolan Hernandez [place] [facility] at 12/15/2023 11:55 AM CDT Encounter Details Date Type Department Care Team (Late st Contact Info) Description 12/15/2023 Notes/Orders [facility] Oncology Genetic Services [address] [place] [address] Nolan Hernandez, [place] [facility] [address] [place] [address] Family history of gene mutation (Primary Dx) Social History Tobacco Use Types Packs/Day Years Used Date Smoking Tobacco: Never Smokeless Tobacco: Never Alcohol Use Standard Drinks/Week Comments Not Currently 0 (1 standard drink = 0.6 oz pur e alcohol) rare usage Sex and Gender Information Value Date Recorded Sex Assigned at Female 02/21/2021 8:36 PM SENIOR ENGINEER Gender Identity Female 02/21/2021 8:36 PM SENIOR ENGINEER Sexual Orientation Not on file documented as of this encounter Plan of Treatment Scheduled Referrals Name Type Priority Associated Diagnoses Orde r Schedule Genetic Counseling (Oncology) Referral Routine Family history of gene mutation Ordered: 12/15/2023 documented as of this encounter Visit Diagnoses Diagnosis Family history of gene mutation- Primary documented in this encounter Care Teams Safety Manager Relationship Specialty Start Date End Date David Choudhury MD [address] [place] [address] PCP - General Family Practice 03/16/21 documented as of this encounter
--- OUTSIDE RECORDS SUMMARY | 2024-01-24 10:17 | XMS_ITS | Clinical Summary ---
Author Organization [facility] Address [place], [place] [address] Care Team Providers Care Agriscience Instructor Name Role Phone [facility] Unavailable Unavailable Pcp, No Primary Care Provider Unavailabl e Allergies Active Allergy Reactions Criticality Noted Date Comments Amoxicillin-Pot Clavulanate Diarrhea 04/24/19 18 Doxycycline Other - Describe In Comment Field,Vomiting 04/23/2017 Sunburn Medications topiramate (TOPAMAX) 100 mg tablet Take 1 [...] Smokeless Tobacco: Never Tobacco Cessation:Counseling Given: Yes Comments Unknown Sex and Gender Information Value Date Recorded Sex Assigned at Not on file Legal Sex Female 7:26 AM HOUSEKEEPER MANAGER Gender Identity Not on file Sexual Orientation Not on file Obstetrics History Last Filed Vital Signs Vital Sign Reading Time Taken Comments Blood Pressure 110/72 04/23/2017 12:07 PM HOUSEKEEPER MANAGER Pulse 75 04/23/2017 12:07 PM HOUSEKEEPER MANAGER Temperature - - Respiratory Rate - - Oxygen Saturation 96% 04/23/2017 12:07 PM HOUSEKEEPER MANAGER Inhaled Oxygen Concentration - - Weight 78.6 kg (173 lb 4.8 oz) 04/23/2017 12:07 PM HOUSEKEEPER MANAGER Height - - Body Mass Index [...] Procedure Name Priority Date/Time Associated Diagnosis Comments FLASH RANGING CREWMEMBER THIN PREP PAP SCREEN IMAGED Routine 11/15/2019 2:15 PM CDT from Last 3 Months or Most Recently Relevant to Health Maintenance Results * FLASH RANGING CREWMEMBER THIN PREP PAP SCREEN IMAGED (11/15/2019 2:15 PM CDT) Case Report Gynecologic Cytology Report Case: [id number] Authorizing Provider: Shobha Yen Collected: 11/15/2019 Negar Harris MD Ordering Location: [facility] Received: 11/17/2019 0822 First Screen: Asmita Doan Specimen: FLASH RANGING CREWMEMBER ThinPrep Vial Screening, Cervical/Vaginal 11/24/2019 5:31 PM CDT [facility] INTERPRETATION/ RESULT NEGATIVE FOR INTRAEPITHELIAL LESION OR MALIGNANCY (NIL) (none) 11/24/2019 5:31 PM CDT [facility] IMEN ADEQUACY Satisfactory for evaluation No endocervical component seen 11/24/2019 5:31 PM CDT [facility] HPV REQUEST HPV and PAP 11/24/2019 5:31 PM CDT [facility] Last Pap Date 07/06/2014 11/24/2019 5:31 PM CDT [facility] Last Pap Result NIL 0 5:31 PM CDT [facility] Comment:-HPV Menstrual Status 11/24/2019 5:31 PM CDT [facility] Comment:IUD Additional Information 11/24/2019 5:31 PM CDT [facility] Comment: Interpreted at [facility] - [address], [place] [address] Automated Review Successful 11/24/2019 5:31 PM CDT [facility] Comment:Specimen processed s uccessfully by automated lime plant operator device, [employer] Imaging System, [employer] ANCILLARY TESTING FLASH RANGING CREWMEMBER HPV Ordered, Please see separate report 11/24/2019 5:31 PM CDT [facility] Note The pap test is [...] pre-malignant and malignant lesions. 11/24/2019 5:31 PM T [facility] Other (Cervical/Vagina l) 11/15/2019 2:15 PM CDT 11/17/2019 8:22 AM CDT us Shobha Yen MD PATHOLOGY/CYTOLOGY Final Result [facility] [address] [place] [address], [place] from Last 3 Months or Most Recently Relevant to Health Maintenance Care Teams Agriscience Instructor Relationship Specialty Start Date End Date Pcp, No . PCP - General 04/23/17 [facility] 03/26/17
--- OUTSIDE RECORDS SUMMARY | 2024-01-24 10:17 | XMS_ITS | Encounter Summary ---
Author Organization [facility] Address [address] [place] [address] Care Team Providers Care Bogger Operator Name Role Phone David Choudhury MD Primary Care Provider [phone] Encounter Details Date Type Department Care Team (Late st Contact Info) Description 01/19/2024 5:20 PM PET STORE MERCHANDISER Lab Visit [facility] [address] [place], [place] [address] Malignant neoplasm of lower lobe of right lung (HRC) Social History Tobacco Use Types Packs/Day Years Used Date Smoking Tobacco: Never Smokeless Tobacco: Never Alcohol Use Standard Drinks/Week Comments Not Currently 0 (1 standard drink = 0.6 oz pur e alcohol) rare usage Sex and Gender Information Value Date Recorded Sex Assigned at Female 02/21/2021 8:36 PM PET STORE MERCHANDISER Gender Identity Female 02/21/2021 8:36 PM PET STORE MERCHANDISER Sexual Orientation Not on file documented as of this encounter Plan of Treatment Pending Results Name Type Priority Associated Diagnoses Date /Time Miscellaneous Genetic Test Lab Routine Malignant neoplasm of lower lobe of right lung (HRC) 01/19/2024 2:20 PM PET STORE MERCHANDISER documented as of this encounter Visit Diagnoses Diagnosis Malignant neoplasm of lower lobe of right lung (HRC) documented in this encounter Care Teams Bogger Operator Relationship Specialty Start Date End Date David Choudhury MD [address] [facility] [place] [address] PCP - General Family Practice 03/16/21 documented as of this encounter
--- OUTSIDE RECORDS SUMMARY | 2024-01-24 10:17 | XMS_ITS | Encounter Summary ---
Author Organization [facility] Address [address] [place] [address] Care Team Providers Care Player Manager Name Role Phone David Choudhury MD Primary Care Provider [phone] Reason for Visit * Reason Comments Genetic Counseling * Consult/Transfer Care (Routine) - New Request Specialty Diagnoses / Procedures Referred By Maria Luz polanco Referred To Contact Diagnoses Family history of gene mutation Nolan Hernandez CGC [address] [place] [id number] Referral ID Status Reason Start Date Expiration Date V isits Requested Visits Authorized [id number] New Request 12/15/2023 03/15/2025 1 1 Encounter Details Date Type Department Care Team (Late st Contact Info) Description 01/19/2024 1:26 PM 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 - 01/19/2024 11:59 PM 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 Hospital Encounter [facility] [address] [place] [address] [id number] Nolan Hernandez, [address] [id number] Malignant neoplasm of lower lobe of right lung (HRC) (Primary Dx); Encounter for nonprocreative genetic counseling Discharge Disposition: Home Social History Tobacco Use Types Packs/Day Years Used Date Smoking Tobacco: Never Smokeless Tobacco: Never Alcohol Use Standard Drinks/Week Comments Not Currently 0 (1 standard drink = 0.6 oz pur e alcohol) rare usage Sex and Gender Information Value Date Recorded Sex Assigned at Female 02/21/2021 8:36 PM 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 Gender Identity Female 02/21/2021 8:36 PM 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 Sexual Orientation Not on file documented as of this encounter Medications at Time of Discharge Medication Sig Dispensed Refills Start Date End Date AIMOVIG 70 MG/ML injection INJECT 70MG SUBCUTANEOUSLY ONCE PER MONTH. 03/13/2022 ALBUterol sulfate HFA 108 (90 Base) MCG/ACT inhaler Inhale 2 Puffs every 6 hours as needed for Other, Wheezing or Shortness of Breath. 08/04/2023 azithromycin (ZITHROMAX) 250 MG tablet Take 1 Tablet (250 mg) by mouth daily. 08/04/2023 betamethasone dipropionate (DIPROSONE) 0.05 % cream APPLY TO AFFECTED AREA(S) TOPICALLY TWO TIMES A DAY NEEDED estradiol (ESTRACE) 1 MG tablet Take 1 Tablet (1 mg) by mouth daily. 12/08/2020 eszopiclone (LUNESTA) 2 MG tablet Take 1 Tablet (2 mg) by mouth at bedtime as needed. 10/01/2022 famotidine (PEPCID) 10 MG tablet Take 1 Tablet (10 mg) by mouth two times a day. 60 Tablet 11 01/27/2023 ferrous sulfate (FEROSUL) 325 (65 Fe) MG tablet TAKE ONE TABLET BY MOUTH DAILY ONE HOUR BEFORE OR 2 HOURS AFTER A MEAL 30 Tablet 60 06/03/2023 FLUoxetine (PROZAC) 10 MG capsule Take 1 Capsule (10 mg) by mouth daily. 12/26/2020 galcanezumab-gnlm (EMGALITY) 120 MG/ML injection Inject 1 mL (120 mg) subcutaneously every 4 weeks. Inject 2 PENS SC on the same day the first month then 1 PEN SC once a month. CONTACT neurology clinic with ANY adverse effects or issues. hydrocortisone 2.5 % cream Apply 1 Application topically 2 times daily as needed. 30 03/31/2006 hydrOXYzine pamoate (VISTARIL) 25 MG capsule 02/06/2021 IRON, FERROUS GLUCONATE, OR LORazepam (ATIVAN) 0.5 MG tablet TAKE ONE TABLET BY MOUTH DIRECTED NEEDED 02/05/2021 metoprolol succinate (TOPROL XL) 100 MG 24 hour release tablet Take 50 mg by mouth daily. Patient is now taking 50 mg once per day 02/03/2021 metoprolol succinate (TOPROL XL) 50 MG 24 hour release tablet Take 50 mg by mouth daily. 02/03/2021 omeprazole (PRILOSEC) 40 MG capsule Take 1 Capsule (40 mg) by mouth two times a day before meals. 180 Capsule 3 05/06/2023 05/05/2024 ondansetron (ZOFRAN-ODT) 4 MG disintegrating tablet DISSOLVE ONE TABLET BY MOUTH EVERY 6 HOURS NEEDED 11/10/2020 SUMAtriptan (IMITREX) 50 MG tablet Take 100 mg by mouth once as needed (Take 1 tablet by mouth once as needed.). 18 3 05/30/2003 topiramate (TOPAMAX) 100 MG tablet Take 1 tablet by mouth 2 times daily. LW Addl Instr:Indicated for: Headache 60 5 04/18/2006 documented as of this encounter Progress Notes * Nolan Hernandez, [facility] - 01/19/2024 1:30 PM CST GENETIC COUNSELING 01/20/2024 RE: Fifi Kasper : 1970 REFERRING PROVIDER Nolan Hernandez INDICATION AND REASON FOR VISIT Family history of TP53 variant and breast cancer Ms. Kasper is a 53 y.o. female who was referred for genetic counseling and consideration of genetic testing due to a family history of a TP53 variant and breast cancer. This session was conducted via an in person visit and Ms. Kasper attended alone. 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 She had a right lower lobectomy with no evidence of any residual disease so adjuvant chemotherapy was not necessary. She is currently being monitored for this. The patient undergoes annual breast mammogram . Ms. Kasper is . She was 13 years old at menarche and was 25 years of age at the of her first child. She reports a total of 15 years hormonal contraceptive use. She is postmenopausal; periods stopped at age 48. She has used hormone replacement therapy. She used estrogen plus progestin for 8 years, from age 43 to the present Ms. Kasper retains her uterus and ovaries . Ms. Kasper has undergone screening colonoscopy; her last colonoscopy occurred 05/06/2023 and was normal. She was instructed to return in 10 yrs for surveillance. FAMILY HISTORY A detailed family history was obtained from the patient and a pedigree was constructed. The pedigree will be saved as a scanned document and available for viewing under the Media tab. Our risk assessment is based upon medical and family history information as provided by the patient, and may changein the future should new information be obtained. Relevant History: - Father of Non-Hodgkin's lymphoma at age 55. - Paternal uncle at age 53 of lung cancer. He did have a history of smoking and agent orange exposure in [place]. - Paternal uncle was diagnosed with leukemia at age 67 and at age 81 of other causes. - Paternal grandmother was diagnosed with breast cancer at age 62 and at age 93 unrelated to cancer. - Paternal 1st cousin was diagnosed with breast cancer in her 30's. She reportedly had genetic testing which identified a TP53 variant. The report that was supplied to myself was from tumor testing that was completed as part of her workup. 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 - Maternal grandfather was diagnosed with pancreatic cancer at age 62 and at age 63. Ashkenazi Anglican ancestry: N/A Consanguinity: N/A PATIENT EDUCATION We discussed that cancer is a relatively common diagnosis in the general population, and the majority of these cancers are either sporadic or familial. Hereditary cancers are caused by pathogenic variants within a single cancer susceptibility gene. Families with hereditary cancers tend to have the following features: specific types of cancer in multiple close relatives and in several consecutive generations, early age at diagnosis (under 50), multiple primary or bilateral tumors, and a lack of environmental or other known risk factors. About 12% of women in the [place] will develop breast cancer during their lifetime. It is believed that approximately 5%-10% of breast cancers are associated with a strong underlying hereditary susceptibility, such as pathogenic variants in the BRCA1 gene or the BRCA2 gene. Additionally, pathogenic variants in other genes, including PALB2, EDI, and CHEK2, among others, have been found to cause a here ditary susceptibility to breast cancer. The cancer risk and inheritance patterns associated with pathogenic variants in these genes were reviewed. If an individual inherits a pathogenic variant, eachof his/her children has a 50% chance that he/she also inherited the same pathogenic variant. Medical management options were reviewed, including increased surveillance, chemopreventative medications, and risk-reducing surgeries. We discussed testing panels that cover many genes known or thought to be associated with hereditary cancer. The exact cancer risks for some of the genes that are included on some of these panels are not known at this point in time. Additionally, there is a significant chance that a variant of uncertain significance (VUS) may be identified. A VUS is an uninformative result that, in most cases, should not be used to change medical management. We reviewed different hereditary cancer panel test options. Approximate cost, insurance coverage, and laws governing genetic discrimination were discussed. Risks, benefits, and limitations of genetic testing were reviewed. Implications of possible test results, including positive, negative, and variant of uncertain significance, were discussed. RISK ASSESSMENT Ms. Kasper's personal and family history is not highly suggestive of genetic predisposition to cancer. The patient does not meet current National Comprehensive Cancer Network (NCCN) testing Criteria for breast cancer susceptibility genes. It is possible that the report supplied to myself did not contain all the necessary information, so it was requested that if there was a germline genetic testreport with a different finding, that this could change the risk assessment. Genetic testing remains available to the patient, as results may help clarify her future cancer risks and, thus, will helpdirect decisions regarding cancer screening and prevention. She chose the self-pay option ($250) and wanted to initiate testing today. PSYCHOSOCIAL ASSESSMENT The emotional ramifications of genetic testing results were reviewed. There did not appear to be any psychological issues that suggested Ms. Kasper should not have genetic testing at this time. PLAN Ms. Kasper chose to pursue the CancerNext-Expanded panel through [facility]. This is an appropriate genetic test for Ms. Kasper given her family history. Written consent for testing was obtained and possible results were reviewed. Testing will be run from a blood sample collected today. Results of this testing should be available in 2-3 weeks from submission of sample. I will review these result with Ms. Kasper at her follow-up appointment. Screening and management recommendations will be made for the patient and her family members at thetime of results disclosure. Ms. Kasper verbalized understanding of the information reviewed. She was encouraged to contact mewith any further questions, concerns, or family history updates and was given my contact information. 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 Plan of Treatment Pending Results Name Type Priority Associated Diagnoses Date /Time Miscellaneous Genetic Test Lab Routine Malignant neoplasm of lower lobe of right lung (HRC) 01/19/2024 2:20 PM 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 Scheduled Orders Name Type Priority Associated Diagnoses Orde r Schedule Miscellaneous Genetic Test Lab Routine Malignant neoplasm of lower lobe of right lung (HRC) Expected: 01/19/2024, Expires: 04/18/2024 documented as of this encounter Visit Diagnoses Diagnosis Malignant neoplasm of lower lobe of right lung (HRC)- Primary Encounter for nonprocreative genetic counseling documented in this encounter Care Teams Player Manager Relationship Specialty Start Date End Date David Choudhury MD [id number] [place] [address] PCP - General Family Practice 03/16/21 documented as of this encounter
--- OUTSIDE RECORDS SUMMARY | 2024-01-24 10:17 | XMS_ITS | Data Portability ---
Author Organization [place] [facility], [facility] Address [address] [place] [address] Care Team Providers Care Supervisor [employer] Name Role Phone PEDRO WINTERS Primary Care [...] with K citrate; she will try True Lemon/[place] for now - would benefit from repeat 24-hr urine assessment - f/u with Dr. Marie or me in [address] stone protocol [email or web address] Not available 03/28/2022 17:04:05 12/09/2022 12/09/2022 - stent removed - stone prevention diet - can f/u PRN [email or web address] Not available 12/09/2022 10:42:45 Plan of Treatment Reminders Order Date Submit Date Provider Last Modified By Organization Details Last Modified Time Details Appointments None recorded . Lab urinalys is, dipstick 2022 023 [email or web address], [address], [place], [address], 10:24:05 Referral None recorded . Procedures None recorded . Surgeries None recorded . Imaging None recorded . Medication Orders oxycodon e 5 mg tablet 2022 023 [id number], [address] [facility], [place], [address], 10:00:18 Patient TargetsNo targets recorded. Patient InstructionsNo instructions recorded. Reason for Referral None Reported. Results Created Date Observation Date Name Description Value Unit Range Abnormal Flag Note LastModifiedBy Organization Detail LastModifiedTime 03/28/1903/28/2022 urina lysis , dipst ick Color-Status Yellow Not Available [facility] [address], [place], [address], 03/28/2022 10:21:37 03/28/1903/28/2022 urina lysis , dipst ick Clarity-Stat us Slight ly Cloudy Not Available [facility] [address], [place], [address], 03/28/2022 10:21:37 03/28/1903/28/2022 urina lysis , dipst ick Ketones-Stat us 15 Not Available [facility] [address], [place], [address], 03/28/2022 10:21:37 03/28/19 23 03/28/2022 urina lysis , dipst ick pH-Status 6.5 Not Available [facility] [address], [place], [address], 03/28/2022 10:21:37 03/28/19 23 03/28/2022 urina lysis , dipst ick Protein-Stat us Not Available [facility] [address], [place], [address], 03/28/2022 10:21:37 03/28/19 23 03/28/2022 urina lysis , dipst ick Nitrates-Sta tus negati ve Not Available [facility] [address], [place], [address], 03/28/2022 10:21:37 03/28/19 23 03/28/2022 urina lysis , dipst ick Blood-Status Trace Not Available [facility] [address], [place], [address], 03/28/2022 10:21:37 03/28/19 23 03/28/2022 urina lysis , dipst ick Leuko-Status Trace Not Available [facility] [address], [place], [address], 03/28/2022 10:21:37 03/28/19 23 03/28/2022 urina lysis , dipst ick Specimen Type Voided Not Available [facility] [address], [place], [address], 03/28/2022 10:21:37 Result Notes None recorded. Problems Name Problem SNOMED Code Status Onset Date Resolution Date Notes Provider Name and Address Organization Details Recorded Time Ureteric stone 11944533 Active 023 Jack irwin MD, PHD [address] [place] [address], [phone] , [facility] 3 10:42:22 Problem Notes None recorded. Procedures Surgical History Date Name Laterality Status Provider Name and Address Organization Details Recorded Time 12/10/19 Cystoscopy with foreign body/stent removal completed Jack Robert MD, PHD [address] [place] [phone], [facility] 12/09/2022 10:42:11 12/10/19 Cipro post Cysto completed Adela Mistry [facility] 12/09/2022 10:34:39 07/19/19 repair of stress incontinence by suprapubic sling completed Danna Buck [facility] 03/28/2022 10:18:41 09/18/19 11 ultrasonic fragmentation of urinary stone through percutaneous nephrostomy completed Danna Buck [facility] 03/28/2022 10:19:27 lobectomy completed Danna [facility] 03/28/2022 10:19:41 Imaging Results None recorded. Procedure Notes None recorded. Medical Equipment None Reported. Allergies Allergen ID Allergen Name Allergen Category Reaction Reaction Severity Criticality Documentation Date Start Date Code Code System Note Provider Name and Address Organization Details Recorded Time 633336 Augmentin medicatio n Not available Not available Not available 08/05/20192011 95263 2 RxNorm Not Available [facility] 0 00:42:34 660536 Keflex medicatio n Not available Not available Not available 08/05/2019201716 7 RxNorm Not Available [facility] 0 00:42:34 113453 Vibramyci n medicatio n Not available Not available Not available 08/05/2019201797 5 RxNorm Not Available [facility] 0 00:42:34 597764 Penicilli n Not available Not available Not available Not available 08/05/20192011 16561 RxNorm Not Available [facility] 0 00:42:34 813034 doxycycli ne Not available Not available Not available Not available 03/28/2022 3640 RxNorm Danna Buck [place], [place] - [facility] 3 10:12:33 Medications Name Sig Start [...] Updated DateTime 03/28/2022 152.4 cm 31.2 kg/m2 39128.78 g Danna Buck [facility] 03/28/2022 10:12:06 Date Recorded Body height Body mass index (BMI) Body weight Provider Name and Address Organization Details Last Updated DateTime 12/09/2022 152.4 cm 32.2 kg/m2 90655.74 g Solangejay Rosenbergson [facility] 12/09/2022 09:59:04 Social History Question Answer Notes LastModified by Organizat ion Details LastModified Time Tobacco Smoking Status [facility] 03/28/2022 10:17:41 What Is Your Level Of Alcohol Consumption? Occasional Very Rarely [email or web address] Information not available 03/28/2022 What Is Your Level Of Caffeine Consumption? Occasional Very Rarely [email or web address] Information not available 03/28/2022 Race White Information no t available 12/09/2022 Ethnicity Not /Latin o Information not available 12/09/2022 Preferred Language Upper Sorbian Information not available 12/09/2022 What Was The Date Of Your Most Recent Tobacco Screening? 12/09/2022 Information not available 12/09/2022 Do You Use Any Illicit Or Recreational Drugs? No [email or web address] Information not available 03/28/2022 Sex: Unknown Functional Status None recorded. Mental Status None recorded. Family History Relationship Description Onset Age of this Age Resolved Age Notes LastModified by Organization Details LastModified Time Father Family history of malignant neoplasm 56 non hodgki n lympho ma [email or web address] Not available 03/28/2022 10:17:13 Medical History Condition Response High Blood Pressure N Kidney Stones Y Lung Disease N Depression N GERD/Acid Reflux N Sexually Transmitted Infection N Cancer Y High Cholesterol N Diabetes N Bleeding Disorder N Heart Disease N Gynecological History Statement/Question Response Leaking urine with intercourse Y Sexually Active? Y Pain with intercourse Y Obstetrics History GPAL:G 0 P 0 0 0 0 Immunizations Vaccine Type Date Status Note Provider Nam e and Address Organization Details Recorded Time Influenza, split virus, quadrivalent, preservative 1 completed Mariajose Almejere null, [facility] 12/02/2022 11:19:57 zoster recombinant 2 completed Mariajose Almejere null, [facility] 12/02/2022 11:19:58 zoster recombinant 2 completed Mariajose Almejere null, [facility] 12/02/2022 11:19:58 MMR 8 completed [facility] 11:19:58 COVID-19, mRNA, LNP-S, PF, 30 mcg/0.3 mL dose 1 [facility]2022 11:19:58 COVID-19, mRNA, LNP-S, PF, 30 mcg/0.3 mL dose 2 [facility] 11:19:58 COVID-19, mRNA, LNP-S, PF, 30 mcg/0.3 mL dose 1 completed [facility]/02/2022 11:19:58 COVID-19, mRNA, LNP-S, PF, 30 mcg/0.3 mL dose 0 completed Mariajose Westejere null, [facility] 12/02/2022 11:19:58 COVID-19, mRNA, LNP-S, bivalent, PF, 30 mcg/0.3 mL dose 2 completed Mariajose Almejere null, [facility] 12/02/2022 11:19:58 influenza, unspecified formulation 9 completed Mariajose Almejere null, [facility] 12/02/2022 11:19:58 influenza, unspecified formulation 9 completed Mariajose Almejere null, [facility] 12/02/2022 11:19:58 influenza, unspecified formulation 0 completed Mariajose Almejere null, [facility] 12/02/2022 11:19:58 influenza, unspecified formulation 6 completed Mariajose Almejere null, [facility] 12/02/2022 11:19:58 influenza, unspecified formulation 7 completed Mariajose Almejere null, [facility] 12/02/2022 11:19:58 influenza, unspecified formulation 5 completed Mariajose Almejere null, [facility] 12/02/2022 11:19:58 influenza, unspecified formulation 4 completed Mariajose Almejere null, [facility] 12/02/2022 11:19:58 Tdap 4 completed Mariajose Almejere null, [facility] 12/02/2022 11:19:58 Influenza, split virus, trivalent, preservative 4 completed Mariajose Almejere null, [facility] 12/02/2022 11:19:58 Influenza, split virus, trivalent, preservative 8 completed Mariajose Almejere null, [facility] 12/02/2022 11:19:58 Influenza, split virus, trivalent, PF 2 completed Mariajose Almejere null, [facility] 12/02/2022 11:19:58 Influenza, split virus, trivalent, PF 3 completed Mariajose Almejere null, [facility] 12/02/2022 11:19:58 Influenza, split virus, trivalent, PF 1 completed Mariajose Almejere null, [facility] 12/02/2022 11:19:58 Influenza, split virus, trivalent, PF 5 completed Mariajose Almejere null, [facility] 12/02/2022 11:19:58 Influenza, split virus, trivalent, PF 8 completed Mariajose Almejere null, [facility] 12/02/2022 11:19:58 Influenza, split virus, trivalent, PF 0 completed Mariajose Almejere null, [place] [facility] 12/02/2022 11:19:58 Novel [id number] 9 completed Mariajose Almejere null, [facility] 12/02/2022 11:19:58 Td (adult), 5 Lf tetanus toxoid, preservative free, adsorbed 9 completed Mariajose Almejere null, [facility] 12/02/2022 11:19:58 Td (adult), 2 Lf tetanus toxoid, preservative free, adsorbed 6 completed Mariajose Almejere null, [facility] 12/02/2022 11:19:58 Td (adult), 2 Lf tetanus toxoid, preservative free, adsorbed 6 completed Mariajose Almejere null, [facility] 12/02/2022 11:19:58 Hep A, adult 2 completed Mariajose Dodsonejere null, [facility] 12/02/2022 11:19:58 Hep A, adult 2 completed Mariajose Almejere null, [facility] 12/02/2022 11:19:58 Influenza, split virus, quadrivalent, PF 7 completed Mariajose Westejere null, [facility] 12/02/2022 11:19:58 Influenza, split virus, quadrivalent, PF 2 completed Mariajose Dodsonejere null, [facility] 12/02/2022 11:19:58 Influenza, split virus, quadrivalent, PF 9 completed Mariajose Almejere null, [facility] 12/02/2022 11:19:58 COVID-19, mRNA, LNP-S, PF, barbara-sucrose, 30 mcg/0.3 mL 3 completed Any Cabrera [facility] 12/09/2022 12:36:45 Past Encounters Encounter ID Performer Location Encounter Start Date Encounter Closed Date Diagnosis/Indication Diagnosis SNOMED-CT Code Diagnosis ICD10 Code [id number] Teresa Montoya PA-C [facility] [address] [place] [phone] 03/28/2022 10:00:29 04/01/2022 10:20:38 Ureteric stone 25745242 N20.1 [id number] Jack irwin MD, PHD [facility] [address] [place] [id number] 12/09/2022 09:43:12 12/18/2022 17:53:40 Ureteric stone 91923345 N20.1 Health Concerns Section Related Observation LastModified by Organization Detai ls LastModified Time None Recorded Concern Status LastModified by Organization Details LastModified Time None Recorded Advance Directives Directive None Recorded Payers Encounter Date Sequence Insurance Name Policy Number Policy Kyle Covered Member ID Kyle Member ID Guarantor Name 03/28/2022 1 PREFERR[employer]ONE [id number] Fifi S Ranjith [id number] Fifi S Ranjith 12/09/2022 1 PREFERREDONE [id number] Fifi S Ranjith [id number] Fifi S Ranjith Notes Date Note Type Note Provider Name [...] 2010. Son has renal tubular acidosis. 03/28/22 (LB):Was to f/u with Dr. Marie in [...] acid (0.353) PTH - 73 (03/18/17) - highCalcium - 9.1 [...] ESWL Soc:Occ:Tobacco:Et [place]: FHx: Teresa Montoya PA-C [address], [place], [address], [facility] 03/28/2022 17:04:38 12/09/2022 text/html 52F with kidney stones. 12/01/22: left URS/HLL/stent for 8 mm UVJ stone Here for stent removal. Has bladder spasms. Jack Robert MD, PHD [address], [place], [address], [facility] 12/09/2022 10:42:55 OBGyn Episode No OBEpisode recorded.
== END 2024-01-19 07:40 | disposition home or self-care (01) ==
LOC: NFLDREF 01-24 10:15
PROVIDERS: PCP Family Medicine; Referring Provider Family Medicine; Visit Provider Internal Medicine Nephrology
DX: D50.9 Iron deficiency anemia, unspecified (principal); N20.0 Calculus of kidney
CPT/HCPCS: 82340; 82436; 82507; 83735; 83945; 83986; 84105; 84133; 84300; 84392; 84560

== ENCOUNTER 2024-04-08 08:47 | Outpatient (CLI) | payer OTHER, SELFPAY | END 2024-04-08 08:48 | disposition home or self-care (01) | PROVIDERS: PCP Family Medicine; Visit Provider Family Medicine | DX: K52.9 Noninfective gastroenteritis and colitis, unspecified (principal) | CPT/HCPCS: 87177; 87209; 87493; 87505 ==

== ENCOUNTER 2024-06-23 08:24 | Outpatient (CLI) | payer OTHER, SELFPAY | END 2024-06-23 08:25 | disposition home or self-care (01) | LOC: NFLDREF 06-29 23:42 | PROVIDERS: PCP Internal Medicine; Referring Provider Internal Medicine; Visit Provider Internal Medicine Nephrology | DX: N20.0 Calculus of kidney (principal) | CPT/HCPCS: 80069; 83970; 84550; 87086 ==

== ENCOUNTER 2024-06-26 09:26 | Outpatient (CLI) | payer OTHER, SELFPAY | END 2024-06-26 09:27 | disposition home or self-care (01) | LOC: NFLDREF 07-06 07:21 | PROVIDERS: PCP Internal Medicine; Referring Provider Internal Medicine; Visit Provider Internal Medicine Nephrology | DX: N20.0 Calculus of kidney (principal); N20.9 Urinary calculus, unspecified | CPT/HCPCS: 82340; 82436; 82507; 83735; 83945; 83986; 84105; 84133; 84300; 84392; 84560 ==

== ENCOUNTER 2024-07-01 09:31 | Outpatient (CLI) | payer OTHER, SELFPAY ==
--- NOTE | 2024-07-01 09:30 | CRLHL7_ITS ---
For Patients: As a result of the Century Cures Act, medical imaging exams and procedure reports are released immediately into your electronic medical record. You may view this report before your referring provider. If you have questions, please contact your health care provider. Indication: BILAT FLANK PAIN HX STONES Technique: Noncontrast CT abdomen and pelvis Please note that all CT scans at this facility use dose modulation, iterative reconstruction, and/or weight-based dosing when appropriate to reduce radiation dose to as low as reasonably achievable. Comparison: 11/04/2023 Findings: Mild scarring within the right lung base noted. No pleural effusion. Noncontrast enhanced liver normal. Unremarkable gallbladder. Spleen normal. Normal adrenal glands. Pancreas within normal limits. Normal ureters. Bladder normal. IUD in the uterus. Normal ovaries. No bowel obstruction. Status post appendectomy. No free air or free fluid. No adenopathy. No fracture. Hypertrophic changes at the symphysis pubis. Single stone in the left kidney is unchanged, measuring 4 millimeters. This is located in the interpolar region. Multiple small stones throughout the right kidney are also similar in size and number, measuring up to 4 millimeters. No hydronephrosis or perinephric stranding. Impression: No hydroureter. Similar bilateral nonobstructing nephrolithiasis. Normal ureters. Interval resolution of the focal diverticulitis. Please note that all CT scans at this facility use dose modulation, iterative reconstruction, and/or weight-based dosing when appropriate to reduce radiation dose to as low as reasonably achievable. Dictated by Abdoulaye Hall MD @ 07/01/2024 10:47:05 AM (Electronically Signed)
== END 2024-07-01 09:32 | disposition home or self-care (01) ==
LOC: CT 09:32
PROVIDERS: PCP Internal Medicine; Visit Provider Internal Medicine Nephrology
DX: N20.9 Urinary calculus, unspecified (principal)
CPT/HCPCS: 74176

== ENCOUNTER 2024-09-28 06:59 | Outpatient (CLI) | payer OTHER, SELFPAY ==
--- NOTE | 2024-09-28 07:15 | CRLHL7_ITS ---
For Patients: As a result of the Century Cures Act, medical imaging exams and procedure reports are released immediately into your electronic medical record. You may view this report before your referring provider. If you have questions, please contact your health care provider. Indication: RADICULOPATHY, CERVICAL REGION Technique: Noncontrast sagittal T1, T2, STIR and axial T2 SE and GRE sequences are provided. Comparison: Cervical radiographs 09/16/2024 Findings: There is straightening of normal cervical spine alignment. No fracture. No aggressive osseous lesions. No prevertebral or paraspinal edema. Anterior osteophytic spurring at C4-5 through C6-7. Mild right mastoid effusion. C1-2: No spinal canal stenosis. C2-3: No significant spinal canal stenosis or neural foramen narrowing. C3-4: No significant spinal canal stenosis or neural foraminal narrowing. C4-5: Mild disc bulge. No significant spinal canal stenosis or neural foraminal narrowing. C5-6: Modic type 2 endplate degenerative changes. Mild disc bulge indents the thecal sac. No significant spinal canal stenosis or neural foramen narrowing. C6-7: Moderate interspace narrowing. Modic type 2 endplate degenerative changes. Shallow disc osteophyte complex. No significant spinal canal stenosis. Mild left neural foraminal narrowing. No right neural foraminal narrowing C7-T1: No significant spinal canal stenosis or neural from narrowing. T1-T2: No significant spinal canal stenosis or neural foraminal narrowing. Impression: 1. No acute osseous or ligamentous abnormality. 2. Cervical spondylosis at C4-5 through C6-7 without significant spinal canal stenosis. Mild left neural foraminal narrowing at C6-7. 3. No abnormal spinal cord signal. Dictated by Abdoulaye Dyer MD @ 09/28/2024 1:08:51 PM (Electronically Signed)
== END 2024-09-28 07:00 | disposition home or self-care (01) ==
LOC: MRI 07:00
PROVIDERS: PCP Internal Medicine; Visit Provider Family Medicine
DX: M54.12 Radiculopathy, cervical region (principal); M47.892 Other spondylosis, cervical region
CPT/HCPCS: 72141

== ENCOUNTER 2024-12-01 08:20 | Outpatient (CLI) | payer OTHER, SELFPAY | END 2024-12-01 08:21 | disposition home or self-care (01) | LOC: NFLDREF 12-03 09:38 | PROVIDERS: PCP Internal Medicine; Referring Provider Internal Medicine; Visit Provider Internal Medicine Nephrology | DX: N20.9 Urinary calculus, unspecified (principal); M54.12 Radiculopathy, cervical region; E66.9 Obesity, unspecified | CPT/HCPCS: 80069; 82043; 82306; 82570; 83970; 84550; 87086 ==

== ENCOUNTER 2024-12-06 05:30 | Outpatient (CLI) | payer OTHER, SELFPAY | END 2024-12-06 05:31 | disposition home or self-care (01) | LOC: NFLDREF 12-16 23:51 | PROVIDERS: PCP Internal Medicine; Referring Provider Internal Medicine; Visit Provider Internal Medicine Nephrology | DX: N20.9 Urinary calculus, unspecified (principal); E66.9 Obesity, unspecified; F41.9 Anxiety disorder, unspecified | CPT/HCPCS: 82340; 82436; 82507; 83735; 83945; 83986; 84105; 84133; 84300; 84392; 84560 ==

== ENCOUNTER 2024-12-06 08:02 | Outpatient (CLI) | payer OTHER, SELFPAY ==
--- NOTE | 2024-12-06 08:15 | CRLHL7_ITS ---
For Patients: As a result of the Century Cures Act, medical imaging exams and procedure reports are released immediately into your electronic medical record. You may view this report before your referring provider. If you have questions, please contact your health care provider. BILATERAL DIGITAL SCREENING MAMMOGRAM WITH COMPUTER-AIDED DETECTION AND TOMOSYNTHESIS CLINICAL HISTORY: Routine screening exam. COMPARISON: 12/01/2023, 11/27/2022, 12/03/2021. TECHNIQUE: Digital mammogram in CC and MLO projections including computer-aided detection (CAD). Tomosynthesis was used in this interpretation. BREAST COMPOSITION: The breasts are heterogeneously dense, which may obscure small masses. FINDINGS: RIGHT Breast: No suspicious findings. LEFT Breast: Focal asymmetric density lateral LEFT breast 7 cm from the nipple CC view only. IMPRESSION: LEFT breast asymmetry/mass. RECOMMENDATIONS: Additional mammographic views of the LEFT breast including 3D spot compression CC and 3D true lateral. LEFT breast ultrasound may also be required. The [facility] will contact the patient. A lay language report of this examination will be provided to the patient. BI-RADS Category 0: Incomplete: Need Additional Imaging Evaluation Dictated by Abdoulaye Hall MD @ 12/06/2024 9:41:04 AM jj/Dictated by: Abdoulaye Hall MD @ 12/06/2024 9:41:00 AM (Electronically Signed)
== END 2024-12-06 08:03 | disposition home or self-care (01) ==
LOC: MAMMO 08:02
PROVIDERS: PCP Internal Medicine; Visit Provider Obstetrics & Gynecology
DX: Z12.31 Encounter for screening mammogram for malignant neoplasm of breast (principal); N63.20 Unspecified lump in the left breast, unspecified quadrant; R92.333 Mammographic heterogeneous density, bilateral breasts
CPT/HCPCS: 77063; 77067

== ENCOUNTER 2024-12-08 10:28 | Outpatient (CLI) | payer OTHER, SELFPAY ==
--- NOTE | 2024-12-08 10:45 | CRLHL7_ITS ---
For Patients: As a result of the Cures Act, medical imaging exams and procedure reports are released immediately into your electronic medical record. You may view this report before your referring provider. If you have questions, please contact your health care provider. DIGITAL DIAGNOSTIC LEFT MAMMOGRAM USING TOMOSYNTHESIS LEFT BREAST ULTRASOUND CLINICAL HISTORY: LEFT breast mass/asymmetry. COMPARISON: 12/06/2024, 12/01/2023, 11/27/2022, TECHNIQUE: Digital LEFT mammogram in two projections. Tomosynthesis was used in this interpretation. Real-time ultrasound imaging of LEFT breast with imaging documentation. BREAST COMPOSITION: The breasts are heterogeneously dense, which may obscure small masses. FINDINGS: 3D spot compression CC and 3D true lateral LEFT breast mammogram images submitted. Decreased conspicuity of previously noted asymmetric density. No suspicious calcifications or architectural distortion. Targeted LEFT breast ultrasound performed. At 3-4 o`clock 7 cm from the nipple, there is normal fibroglandular tissue. No solid mass or fibrocystic change. IMPRESSION: No evidence of malignancy. RECOMMENDATIONS: Routine screening mammography. A lay language report of this examination will be provided to the patient. BI-RADS Category 2: Benign Dictated by Abdoulaye Hall MD @ 12/08/2024 12:28:15 PM jj/Dictated by: Abdoulaye Hall MD @ 12/08/2024 12:28:00 PM (Electronically Signed)
--- NOTE | 2024-12-08 11:15 | CRLHL7_ITS ---
For Patients: As a result of the Cures Act, medical imaging exams and procedure reports are released immediately into your electronic medical record. You may view this report before your referring provider. If you have questions, please contact your health care provider. SEE DIGITAL DIAGNOSTIC LEFT MAMMOGRAM PERFORMED SAME DAY CRL:tr armando/Dictated by: Abdoulaye Hall MD @ 12/08/2024 12:28:00 PM (Electronically Signed)
== END 2024-12-08 10:29 | disposition home or self-care (01) ==
LOC: MAMMO 10:29
PROVIDERS: PCP Internal Medicine; Visit Provider Internal Medicine
DX: N63.20 Unspecified lump in the left breast, unspecified quadrant (principal); R92.8 Other abnormal and inconclusive findings on diagnostic imaging of breast
CPT/HCPCS: 76642; 77065; G0279

== ENCOUNTER 2025-01-10 13:12 | Outpatient (CLI) | payer OTHER, SELFPAY ==
[2025-01-17 14:28] LABS: Pap Test Digital Imaging Done
== END 2025-01-10 13:13 | disposition home or self-care (01) ==
PROVIDERS: PCP Internal Medicine; Visit Provider Internal Medicine
DX: Z12.4 Encounter for screening for malignant neoplasm of cervix (principal)
CPT/HCPCS: 87624; 87625; 88141; 88142; 88175